=== PATIENT | male | born 1965 | race Caucasian/White ===

== ENCOUNTER 2017-01-04 19:20 | Observation (INO) | payer OTHER ==
[2017-01-04] VITALS (7 sets, daily range): BP systolic 142–165; BP diastolic 62–97; PULSE 83–100; RESP 16–20; TEMP 98.1–98.5; O2SAT 99–100
[~2017-01-04] VITALS: Ht 172.7 cm; Wt 88.0 kg
[~2017-01-04 19:20] MED LIST: AMLO5 PO; ASPI1TAB69 PO; BACT800T5 PO; CARV12.5 PO; FOLI1TAB4 PO; GABA300C5 PO; HUMALOG SQ; HYDR-3516 PO; JANU50TA4 PO; LANTUS2P SQ; LEVA750T PO; LEVEMIR SQ; LIPI10TA PO; LISI-515 PO; NITR0.4S SL; PANT40TA3 PO; SPIR25 PO; THIA100T PO; TORS20TA PO; XARE20TA PO
--- NOTE | 2017-01-04 20:19 | PD ---
HPI Chief Complaint: Cardiac Complaint Time Seen by Provider: 20:15 Travel History International Travel<30 days: No Contact w/Intl Traveler<30days: No Traveled to known affect area: No History of Present Illness HPI 51-year-old male that presents to the ED for evaluation of shortness of breath, increase bodyweight as well as chest pain. Per patient he has a history of severe CHF with an ejection fracture of less than 30% that presents to the ED for evaluation of what he believes is likely a CHF exacerbation. Per patient he is a plan with his medications. Patient was recently released from the hospital in October for a foot infection and sepsis. Patient reports that all of his symptoms have improved since then. Per patient his follow-up with his bilingual medical assistant been no issues. Per patient he is originally from [place] and he only comes to [place] for about 4-5 months. Per patient she is due to have a lung transplant as well as a defibrillator placed as well as a pacemaker secondary to his severe heart disease Saturday soon but unfortunately because of his recent infections he's not been able to get this. Patient is currently using a chest heart monitor. He denies any abdominal pain. Per patient and both of his legs are swollen. Per patient he gained 20 pounds. Per patient the chest in his pain is more like a pressure. Per patient he has little cough. Per patient the discomfort is 6 out of 10. He takes blood thinners including Xarelto. He denies any other medical problem at this time. Patient has had previous pleural effusions with thoracocentesis require. Patient also has a history of PE in the past. PFSH Past Medical History Hx Anticoagulant Therapy: Yes Blood Disorders: No Anxiety: Yes Depression: Yes Cancer: No Cardiovascular Problems: Yes (HTN, CHF, CAD, [place]) Congestive Heart Failure: Yes Coronary Artery Disease: Yes Diabetes: Yes Patient Takes Glucophage: Yes Diminished Hearing: No Endocrine: Yes Hypertension: Yes Immune Disorder: No Implanted Vascular Access Dvce: Yes Psychiatric: Yes ("snapped a few times when younger") Immunizations Current: Yes Thyroid Disease: No Ulcer: No (UTO) Tetanus Vaccination: < 5 Years Past Surgical History Body Medical Devices: PINS/RODS LEFT ARM Thoracic Surgery: Yes (BACK SURGERY) Other Surgery: Yes (partial amputation to the left foot, mid metatarsals. Right fourth toe amp) Social History Alcohol Use: No (FORMER) Tobacco Use: Yes (2 CIGS/DAY) Substance Use: Yes ("WEED OCCASSIONALLY") Allergies-Medications (Allergen,Severity, Reaction): Coded Allergies: Percocet (Verified Allergy, Severe, Rash, 01/04/17) Vancomycin (Verified Allergy, Severe, Rash, 01/04/17) Tylenol (Verified Adverse Reaction, Intermediate, Rash, 01/04/17) *MDRO Multi-Drug Resistant Organism (Verified Adverse Reaction, Unknown, ) MRSA (foot wound) - 09/2015 & 09/26/16 Reported Meds & Prescriptions Reported Meds & Active Scripts Active Lisinopril 20 Mg Tab 40 Mg PO DAILY Coreg (Carvedilol) 12.5 Mg Tab 25 Mg PO Q12HR Lipitor (Atorvastatin Calcium) 10 Mg Tab 10 Mg PO DAILY Norvasc (Amlodipine Besylate) 5 Mg Tab 2.5 Mg PO DAILY Levemir Inj (Insulin Detemir) 1,000 unit/ 10 ML Vial 20 Units SQ BID Reported Torsemide 20 Mg Tab 40 Mg PO DAILY Thiamine (Thiamine HCl) 100 Mg Tab 100 Mg PO DAILY Aldactone (Spironolactone) 25 Mg Tab 25 Mg PO DAILY Janumet (Sitagliptin-Metformin) 50-500 Mg Tab 1 Tab PO BID Xarelto (Rivaroxaban) 20 Mg Tab 20 Mg PO DAILY Pantoprazole (Pantoprazole Sodium) 40 Mg Tab 40 Mg PO DAILY Humalog Inj (Insulin Human Lispro) 1,000 Unit/10 Ml Vial SQ ACHS Lantus Inj (Insulin Glargine) 100 Unit/Ml Inj 18 Units SQ BID Gabapentin 300 Mg Cap 300 Mg PO TID Folate (Folic Acid) 1 Mg Tab 1 Mg PO DAILY Aspirin 81 Mg Tabdr 81 Mg PO DAILY Review of Systems General / Constitutional: Positive: Weight Gain, No: Fever, Chills, Weight Loss, Other Eyes: No: Diploplia, Blurred Vision, Photophobia, Drainage, Redness, Foreign Body Sensation, Pain, Tearing, Blind Spots, Visual changes, Blindness, Other HENT: No: Headaches, Vertigo, Lightheadedness, Sore Throat, Rhinitis, Rhinorrhea, Congestion, Nosebleed, Neck Stiffness, Neck Pain, Masses, Gingival Bleeding, Dental Difficulties, Ear Discharge, Earache, Other Cardiovascular: Positive: Chest Pain or Discomfort, Edema, No: Palpitations, Irregular Rhythm, Tachycardia, Diaphoresis, Syncope, Dyspnea on exertion, Varicosities, Cyanosis, Varicosities, Phlebitis, Claudication, Other Respiratory: Positive: Cough, Shortness of Breath, Orthopnea, No: Wheezing, Sneezing, Hemoptysis, Stridor, Night Sweats, Pleuritic Pain, Other Gastrointestinal: No: Nausea, Vomiting, Diarrhea, Abdominal Pain, Hematemesis, Hematochezia, Constipation, Changes in Bowel Habits, Indigestion, Dysphagia, Loss of Appetite, Other Genitourinary: No: Urgency, Frequency, Dysuria, Nocturia, Hematuria, Decreased Urinary Output, Oliguria, Hesitancy, Dribbling, Incontinence, Pelvic Pain, Flank Pain, Dyspareunia, Discharge, Dysmenorrhea, Menorrhagia, Metorrhagia, Vaginal Bleeding, Other Musculoskeletal: No: Myalgias, Arthralgias, Limited ROM, Weakness, Cramping, Edema, Pain, Atrophy, Other Skin: No Rash, No Itching, No Dryness, No Lumps, No Hives, No Change in Pigmentation, No Change in nails, No Alopecia, No Lesions, No Breast Lumps, No Breast Tenderness, No Breast Swelling, No Other Neurologic: No: Weakness, Dizziness, Syncope, Focal Abnormalities, Coordination Problem, Tremor, Ataxia, Headache, Change in Mentation, Slurred Speech, Paresthesia, Incontinence, Seizures, Sensory Disturbance, Other Psychiatric: No: Anxiety, Depression, Suicidal Ideations, Disorder of Thought, Mood Disorder, Substance Abuse, Homicidal Ideation, Other Endocrine: No: Heat Intolerance, Cold Intolerance, Polyuria, Polydipsia, Other Hematologic/Lymphatic: No: Easy Bruising, Lymph Node Enlargement, Other Physical Exam Narrative GENERAL: SKIN: Warm and dry. HEAD: Atraumatic. Normocephalic. EYES: Pupils equal and round. No scleral icterus. No injection or drainage. ENT: No nasal bleeding or discharge. Mucous membranes pink and moist. Tongue is midline. No uvula deviation. NECK: Trachea midline. No JVD. CARDIOVASCULAR: Regular rate and rhythm. No murmurs, S3, S4. RESPIRATORY: No accessory muscle use. Clear to auscultation. Breath sounds equal bilaterally. GASTROINTESTINAL: Abdomen soft, non-tender, nondistended. Hepatic and splenic margins not palpable. MUSCULOSKELETAL: Extremities without clubbing, cyanosis, or edema. No obvious deformities. Full range of motion of the upper and lower x-rays bilaterally. Patient does have what appears to be 1+ pitting edema on the lower extremities. 2+ pulses bilaterally. Patient does have surgical scars on both feet. No sign of active infection noted. NEUROLOGICAL: Awake and alert. No obvious cranial nerve deficits. Motor grossly within normal limits. Five out of 5 muscle strength in the arms and legs. Normal speech. PSYCHIATRIC: Appropriate mood and affect; insight and judgment normal. Data Data Last Documented VS Vital Signs Date Time Temp Pulse Resp B/P Pulse Ox O2 Delivery O2 Flow Rate FiO2 01/04/17 21:34 83 18 145/71 99 Room Air 01/04/17 19:22 98.1 Orders Electrocardiogram (01/04/17 19:58) Complete Blood Count With Diff (01/04/17 19:58) Comprehensive Metabolic Panel (01/04/17 19:58) Ckmb (Isoenzyme) Profile (01/04/17 19:58) Troponin I (01/04/17 19:58) B-Type Natriuretic Peptide (01/04/17 19:58) Prothrombin Time / Inr (Pt) (01/04/17 19:58) Act Partial Throm Time (Ptt) (01/04/17 19:58) Urinalysis - C+S If Indicated (01/04/17 19:58) Magnesium (Mg) (01/04/17 19:58) Thyroid Stimulating Hormone (01/04/17 19:58) Chest, Single Ap (01/04/17 19:58) Iv Access Insert/Monitor (01/04/17 19:58) Ecg Monitoring (01/04/17 19:58) Oximetry (01/04/17 19:58) Furosemide Inj (Lasix Inj) (01/04/17 20:45) Morphine Inj (Morphine Inj) (01/04/17 21:00) CKMB (01/04/17 20:15) CKMB% (01/04/17 20:15) Nitroglycerin 2% Oint (Nitroglycerin 2% (01/04/17 21:30) Labs Laboratory Tests Test 01/04/17 20:15 White Blood Count 9.4 TH/MM3 Red Blood Count 4.33 MIL/MM3 Hemoglobin 10.9 GM/DL Hematocrit 33.6 % Mean Corpuscular Volume 77.7 FL Mean Corpuscular Hemoglobin 25.1 PG Mean Corpuscular Hemoglobin 32.3 % Concent Red Cell Distribution Width 18.4 % Platelet Count 186 TH/MM3 Mean Platelet Volume 8.9 FL Neutrophils (%) (Auto) 66.6 % Lymphocytes (%) (Auto) 16.3 % Monocytes (%) (Auto) 9.0 % Eosinophils (%) (Auto) 7.2 % Basophils (%) (Auto) 0.9 % Neutrophils # (Auto) 6.2 TH/MM3 Lymphocytes # (Auto) 1.5 TH/MM3 Monocytes # (Auto) 0.8 TH/MM3 Eosinophils # (Auto) 0.7 TH/MM3 Basophils # (Auto) 0.1 TH/MM3 CBC Comment DIFF FINAL Differential Comment Prothrombin Time 12.0 SEC Prothromb Time International 1.1 RATIO Ratio Activated Partial 23.1 SEC Thromboplast Time Sodium Level 134 MEQ/L Potassium Level 4.0 MEQ/L Chloride Level 102 MEQ/L Carbon Dioxide Level 23.5 MEQ/L Anion Gap 9 MEQ/L Blood Urea Nitrogen 13 MG/DL Creatinine 0.91 MG/DL Estimat Glomerular Filtration 87 ML/MIN Rate Random Glucose 145 MG/DL Calcium Level 7.9 MG/DL Magnesium Level 1.8 MG/DL Total Bilirubin 0.5 MG/DL Aspartate Amino Transf 55 U/L (AST/SGOT) Alanine Aminotransferase 85 U/L (ALT/SGPT) Alkaline Phosphatase 129 U/L Total Creatine Kinase 137 U/L Creatine Kinase MB 3.2 NG/ML Troponin I 0.03 NG/ML B-Type Natriuretic Peptide 1953 PG/ML Total Protein 7.2 GM/DL Albumin 2.7 GM/DL Thyroid Stimulating Hormone 2.000 uIU/ML [address] [place] [address] Medical Decision Making Medical Screen Exam Complete: Yes Emergency Medical Condition: Yes Medical Record Reviewed: Yes Interpretation(s) CBC & BMP Diagram 01/04/17 20:15 Troponin negative, CK-MB negative BNP in the 1900s EKG shows sinus rhythm with no sign of acute ischemia or arrhythmia. Differential Diagnosis CHF exacerbation versus chest pain versus PE versus diabetes versus respiratory failure versus pleural effusion versus pneumonia Narrative Course 51-year-old male that presents to the ED for evaluation of possible CHF exacerbation. Patient was properly examined and was found to have signs and symptoms consistent appears to be likely CHF exacerbation from history and physical. Labs and imaging were ordered. Labs and imaging show what appears to be CHF exacerbation. Patient has a very high BNP of 1900. Case was discussed in my attending Dr. Lester who was made aware of findings and recommends admission for CHF exacerbation. Patient was given 40 of Lasix here and morphine for pain. Patient has no primary care in the area or drywall taper as he follows up mainly with the drywall taper in [place]. HEPAS was paged. Dr. Oliver agrees to admission. Procedures EKG Prior to Arrival: No Diagnosis Primary Impression: CHF exacerbation Qualified Code: I50.23 - Acute on chronic systolic congestive heart failure Admitting Information Admitting Physician Requests: Observation Gabo Muhammad Jan 04, 2017 20:19 Gabo Muhammad Jan 04, 2017 20:19
[2017-01-04 20:29] LABS: AUTOMATED NEUTROPHIL # 6.2 TH/MM3 (1.8-7.7); BASOPHIL # 0.1 TH/MM3 (0-0.2); BASOPHIL % 0.9 % (0.0-2.0); EOSINOPHIL # 0.7 TH/MM3 (0-0.4); EOSINOPHIL % 7.2 % (0.0-4.0); HEMATOCRIT 33.6 % (39.0-51.0); HEMO FLAGS DIFF FINAL; LYMPH % 16.3 % (9.0-44.0); LYMPHOCYTE # 1.5 TH/MM3 (1.0-4.8); MEAN CELL VOLUME 77.7 FL (80.0-100.0); MEAN CORPUSCULAR HEMOGLOBIN 25.1 PG (27.0-34.0); MEAN CORPUSCULAR HGB CONC 32.3 % (32.0-36.0); NEUT % 66.6 % (16.0-70.0); PLATELET COUNT 186 TH/MM3 (150-450); RED BLOOD COUNT 4.33 MIL/MM3 (4.50-5.90); RED CELL DISTRIBUTION WIDTH 18.4 % (11.6-17.2); WHITE BLOOD COUNT 9.4 TH/MM3 (4.0-11.0)
[2017-01-04] MEDS ORDERED: FUROSEMIDE 40 MG/4 ML VIAL IV PUSH ONE (20:45)
[2017-01-04 20:50] LABS: ANION GAP 9 MEQ/L (5-15); AST (GOT) 55 U/L (15-37); BICARBONATE 23.5 MEQ/L (21.0-32.0); BLOOD UREA NITROGEN 13 MG/DL (7-18); CHLORIDE 102 MEQ/L (98-107); GLOMERULAR FILTRATION RATE 87 ML/MIN (>89); MAGNESIUM 1.8 MG/DL (1.5-2.5); SODIUM (NA) 134 MEQ/L (136-145)
[2017-01-04 20:59] LABS: ALKALINE PHOSPHATASE 129 U/L (45-117); ALT (GPT) 85 U/L (12-78); CREATINE KINASE 137 U/L (39-308); TOTAL BILIRUBIN ADULT 0.5 MG/DL (0.2-1.0)
[2017-01-04] MEDS ORDERED: MORPHINE SULFATE 4 MG/ML INJ IV PUSH ONE (21:00)
[2017-01-04 21:12] LABS: CKMB 3.2 NG/ML (0.5-3.6)
[2017-01-04 21:24] LABS: APTT (PATIENT) 23.1 SEC (24.3-30.1); INTERNATIONAL NORMALIZED RATIO 1.1 RATIO
--- NOTE | 2017-01-04 21:28 | RADRPT ---
EXAM DATE/TIME: 01/04/2017 20:30 [facility] COMPARISON: 10/19/2016. INDICATIONS : Shortness of breath and chest pain. MEDICAL HISTORY : Heart failure. SURGICAL HISTORY : None. ENCOUNTER: Initial ACUITY: 1 day PAIN SCORE: 7/10 LOCATION: Bilateral chest FINDINGS: Trace atelectasis in the bases. No significant effusion. No pneumothorax. Heart size stable, upper li mits of normal. CONCLUSION: Minimal bibasilar atelectasis. Clifford Montaño MD on January 04, 2017 at 21:26 Board Certified Radiologist. This report was verified electronically.
[2017-01-04] MEDS ORDERED: NITROGLYCERIN 2% OINT 1 GM PACKET TOP ONE (21:30)
--- NOTE | 2017-01-04 21:43 | HHI.HP ---
[facility] Service [facility] Primary Care Physician No Primary Care Physician Admission Diagnosis CHF exacerbation Diagnoses: (1) Chest pain Diagnosis: Principal (2) CHF (congestive heart failure) Diagnosis: Principal (3) DM (diabetes mellitus) Diagnosis: Principal Travel History International Travel<30 Days: No Contact w/Intl Traveler <30 Da: No Traveled to Known Affected Are: No History of Present Illness This is a 51-year-old male with a PMH of HTN, Anxiety, Depression, CHF (Echo 08/26 w/ EF 30%), LifeVest in place, DM and Tobacco Abuse who presented to the ER w/ complaints of chest pain and SOB in addition to lower extremity edema. States symptoms have been ongoing for 2-3 days w/ progressive edema and weight gain of approx 20lbs. States he is awaiting Defibrillator Placement in addition to Lung Transplant back in [place] where he lives. On arrival, BP 162/91, HR 100, O2 sat 100% on RA, Afebrile. CBC unremarkable. Chemistry at baseline. LFTs mildly elevated from previous labs. BNP 1953. Troponin negative. CXR with minimal bibasilar atelectasis. S/p Lasix IV in ER. Review of Systems ROS: 14 point review of systems otherwise negative. Past Family Social History Past Medical History PMH: HTN, Anxiety, Depression, CHF (Echo 10/20/16 w/ EF 30%), LifeVest in place , DM and Tobacco Abuse Past Surgical History PAST SURGICAL HISTORY: Back Surgery, Left Foot Partial Amputation, Right Fourth Toe Amputation Allergies: Coded Allergies: Percocet (Verified Allergy, Severe, Rash, 01/04/17) Vancomycin (Verified Allergy, Severe, Rash, 01/04/17) Tylenol (Verified Adverse Reaction, Intermediate, Rash, 01/04/17) *MDRO Multi-Drug Resistant Organism (Verified Adverse Reaction, Unknown, ) MRSA (foot wound) - 09/2015 & 09/26/16 Family History PAST FAMILY HISTORY: Reviewed, positive for DM and CAD Social History PAST SOCIAL HISTORY: History of alcohol. Smokes 2 cigarettes per day. Smokes Marijuana occasionally. Physical Exam Vital Signs Vital Signs Date Time Temp Pulse Resp B/P Pulse Ox O2 Delivery O2 Flow Rate FiO2 01/04/17 21:34 83 18 145/71 99 Room Air 01/04/17 21:34 18 01/04/17 21:08 88 16 150/85 100 Room Air 01/04/17 20:19 18 100 Room Air 01/04/17 19:52 93 18 100 01/04/17 19:50 96 18 165/97 100 Room Air 01/04/17 19:22 98.1 100 20 162/91 100 Physical Exam PE: GENERAL: Middle-aged male in no acute distress. HEENT: PERRLA, EOMI. No scleral icterus or conjunctival pallor. No lid lag or facial droop. CARDIOVASCULAR: Regular rate and rhythm. No obvious murmurs to auscultation. No chest tenderness to palpation. RESPIRATORY: No obvious rhonchi or wheezing. Clear to auscultation. Breath sounds equal bilaterally. GASTROINTESTINAL: Abdomen soft, non-tender, nondistended. BS normal. MUSCULOSKELETAL: Extremities without clubbing, cyanosis. 1-2+ edema. No obvious deformities. Previous amputation NEUROLOGICAL: Awake, alert and oriented x4. No focal neurologic deficits. Moving both upper and lower extremities spontaneously. Laboratory Laboratory Tests Test 01/04/17 20:15 White Blood Count 9.4 Red Blood Count 4.33 Hemoglobin 10.9 Hematocrit 33.6 Mean Corpuscular Volume 77.7 Mean Corpuscular Hemoglobin 25.1 Mean Corpuscular Hemoglobin 32.3 Concent Red Cell Distribution Width 18.4 Platelet Count 186 Mean Platelet Volume 8.9 Neutrophils (%) (Auto) 66.6 Lymphocytes (%) (Auto) 16.3 Monocytes (%) (Auto) 9.0 Eosinophils (%) (Auto) 7.2 Basophils (%) (Auto) 0.9 Neutrophils # (Auto) 6.2 Lymphocytes # (Auto) 1.5 Monocytes # (Auto) 0.8 Eosinophils # (Auto) 0.7 Basophils # (Auto) 0.1 CBC Comment DIFF FINAL Differential Comment Prothrombin Time 12.0 Prothromb Time International 1.1 Ratio Activated Partial 23.1 Thromboplast Time Sodium Level 134 Potassium Level 4.0 Chloride Level 102 Carbon Dioxide Level 23.5 Anion Gap 9 Blood Urea Nitrogen 13 Creatinine 0.91 Estimat Glomerular Filtration 87 Rate Random Glucose 145 Calcium Level 7.9 Magnesium Level 1.8 Total Bilirubin 0.5 Aspartate Amino Transf 55 (AST/SGOT) Alanine Aminotransferase 85 (ALT/SGPT) Alkaline Phosphatase 129 Total Creatine Kinase 137 Creatine Kinase MB 3.2 Troponin I 0.03 B-Type Natriuretic Peptide 1953 Total Protein 7.2 Albumin 2.7 Thyroid Stimulating Hormone 2.000 3rd Gen Result Diagram: 01/04/17201401/04/172014 Assessment and Plan Problem List: (1) Chest pain ICD Code: R07.9 Status: Acute (2) CHF (congestive heart failure) ICD Code: I50.9 Status: Chronic (3) DM (diabetes mellitus) ICD Code: E11.9 Status: Chronic Assessment and Plan A/P: 1. Chest Pain: acute onset of chest pain w/ progressive SOB x2-3 days. Currently chest pain free. R/o ACS. Initial trop negative, EKG w/ no acute ischemia. Resume home Coreg, Statin, Xarelto and ASA. Admit for Observation, telemetry, check serial cardiac enzymes. 2. CHF: Acute on Chronic. Systolic. Echo 10/20/16 w/ EF 30%, +LifeVest, pending AICD Placement however delayed due to previous Cellulitis/Sepsis. BNP 1900, CXR w/ bibasilar atelectasis, no significant effusions, images reviewed by me, +lower extremity edema on exam. S/p Lasix IV in ER. I/O. Resume home diuresis. Repeat BNP in am. 3. DM: Sliding scale w/ Accu-Cheks. Hold Metformin for possible cardiac intervention. 4. DVT Prophylaxis: On Xarelto. 5. Social work for d/c planning as needed. 6. Case discussed w/ ER physician at length. Maureen Oliver MD Jan 04, 2017 21:42
[2017-01-04] MEDS ORDERED: SODIUM CHLORIDE 0.9% FLUSH 5 ML FLUSH FLUSH PRN (21:45)
[2017-01-04] MEDS ORDERED: ONDANSETRON HCL 4 MG/2 ML VIAL IVP PRN (21:45)
[2017-01-04] MEDS ORDERED: BISACODYL 10 MG SUPP PR PRN (21:45)
[2017-01-04] MEDS: MORPHINE SULFATE 4 MG/ML INJ IV PRN (23:12)
[2017-01-04 23:28] LABS: BLOOD, URINE NEG (NEG); COMMENT (UR) CULT NOT INDICATED; CULTURE IF INDICATED CULT NOT INDICATED; GLUCOSE,URINE NEG (NEG); HYALINE CAST, URINE 1 /lpf (RARE); KETONE, URINE NEG (NEG); MUCUS URINE FEW /lpf (OCC); NITRITE,URINE NEG (NEG); PH, URINE 6.5 (5.0-8.5); URINE COLOR LIGHT-YELLOW (YELLW/STRAW)
[2017-01-05] VITALS (10 sets, daily range): BP systolic 128–147; BP diastolic 71–90; PULSE 70–87; RESP 16–20; TEMP 97.6–98.4; O2SAT 95–100
[2017-01-05] MEDS ORDERED: PILL SPLITTER OTHER PRN (00:45)
[2017-01-05] MEDS: MORPHINE SULFATE 4 MG/ML INJ IV PRN ×6 (02:08→23:32)
[2017-01-05] MEDS: ALPRAZolam 0.25 MG TAB PO PRN ×2 (05:13→22:31)
--- NOTE | 2017-01-05 07:47 | EKG ---
Date Performed: 01/04/2017 Time Performed: 19:53:54 PTAGE: 51 years EKG: Sinus rhythm LEFT ANTERIOR FASCICULAR BLOCK POSSIBLE ANTERIOR MYOCARDIAL INFARCTION ABNORMAL ECG PREVIOUS TRACING : 09/26/2016 13.30 No significant change from previous tracing noted. DOCTOR: Santo Payton Interpretating Date/Time 01/05/2017 07:46:30
[2017-01-05 07:51] LABS: AUTOMATED NEUTROPHIL # 6.4 TH/MM3 (1.8-7.7); BASOPHIL # 0.1 TH/MM3 (0-0.2); BASOPHIL % 0.7 % (0.0-2.0); EOSINOPHIL # 0.6 TH/MM3 (0-0.4); EOSINOPHIL % 6.6 % (0.0-4.0); HEMATOCRIT 32.2 % (39.0-51.0); LYMPH % 13.4 % (9.0-44.0); LYMPHOCYTE # 1.2 TH/MM3 (1.0-4.8); MEAN CELL VOLUME 77.8 FL (80.0-100.0); MEAN CORPUSCULAR HEMOGLOBIN 24.8 PG (27.0-34.0); MEAN CORPUSCULAR HGB CONC 31.9 % (32.0-36.0); MONO % 9.1 % (0.0-8.0); NEUT % 70.2 % (16.0-70.0); PLATELET COUNT 162 TH/MM3 (150-450); RED BLOOD COUNT 4.14 MIL/MM3 (4.50-5.90); RED CELL DISTRIBUTION WIDTH 18.7 % (11.6-17.2); WHITE BLOOD COUNT 9.1 TH/MM3 (4.0-11.0)
[2017-01-05 08:10] LABS: ANION GAP 10 MEQ/L (5-15); AST (GOT) 42 U/L (15-37); BICARBONATE 21.6 MEQ/L (21.0-32.0); BLOOD UREA NITROGEN 14 MG/DL (7-18); CHLORIDE 104 MEQ/L (98-107); GLOMERULAR FILTRATION RATE 111 ML/MIN (>89); POTASSIUM 3.5 MEQ/L (3.5-5.1); SODIUM (NA) 136 MEQ/L (136-145)
[2017-01-05 08:11] LABS: HEMO FLAGS AUTO DIFF
[2017-01-05 08:12] LABS: ALKALINE PHOSPHATASE 113 U/L (45-117); ALT (GPT) 76 U/L (12-78); TOTAL BILIRUBIN ADULT 0.5 MG/DL (0.2-1.0)
[2017-01-05] MEDS: INSULIN DETEMIR 100 UNITS/ML VIAL SQ SCH ×2 (09:00→21:00)
[2017-01-05] MEDS ORDERED: RIVAROXABAN 20 MG TAB PO SCH ×2 (09:00→17:00)
[2017-01-05] MEDS: SODIUM CHLORIDE 0.9% FLUSH 5 ML FLUSH FLUSH SCH ×2 (09:00→20:56)
--- NOTE | 2017-01-05 09:53 | HHI.PR ---
Subjective Remarks Follow up for chest pain and CHF exacerbation. The patient reports continued constant "tight" chest pains throughout bilateral lower rib cage. He reports continued shortness of breath. 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 The patient reports compliance with his medications however denies being on Lasix at home, only spironolactone. He states this is the second time he has "filled up with water". He denies any recent increased salt intake. He continue to smoke 1-2 cigarettes a day, discussed importance of cessation. Objective Vitals Vital Signs Date Time Temp Pulse Resp B/P Pulse Ox O2 Delivery O2 Flow Rate FiO2 01/05/17 07:28 14 01/05/17 07:23 98.3 82 18 146/90 96 01/05/17 03:32 98.0 81 18 146/90 100 01/05/17 01:13 82 01/05/17 00:44 98.4 87 18 147/88 95 01/04/17 23:58 98.5 87 16 147/62 99 01/04/17 23:17 87 18 142/77 99 Room Air 01/04/17 21:34 83 18 145/71 99 Room Air 01/04/17 21:34 18 01/04/17 21:08 88 16 150/85 100 Room Air 01/04/17 20:19 18 100 Room Air 01/04/17 19:52 93 18 100 01/04/17 19:50 96 18 165/97 100 Room Air 01/04/17 19:22 98.1 100 20 162/91 100 Result Diagram: 01/05/17 0737 01/05/17 0737 Imaging Last Impressions Chest X-Ray 01/04/171957 Signed Impressions: Service Date/Time: Wednesday, January 04, 2017 20:30 - CONCLUSION: Minimal bibasilar atelectasis. Clifford Montaño MD Objective Remarks GENERAL: Well-nourished, well-developed middle aged male patient in [facility]. SKIN: Warm and dry. No rash. HEENT: Normocephalic. Atraumatic. Pupils equal and round. No scleral icterus. No injection or drainage. Mucous membranes pink and moist. NECK: Supple. Trachea midline. CARDIOVASCULAR: Regular rate and rhythm. S1, S2 noted. No murmur appreciated. RESPIRATORY: No accessory muscle use. Breath sounds diminished throughout, worse at the bases. Breath sounds equal bilaterally. GASTROINTESTINAL: Abdomen soft, non-tender, nondistended. Normoactive bowel sounds x4. MUSCULOSKELETAL: Right mid foot amputation and left toe amputations. 1+ bilateral lower extremity pitting edema. NEUROLOGICAL: Awake and alert. No obvious cranial nerve deficits. Motor grossly within normal limits. Normal speech. PSYCHIATRIC: Appropriate mood and affect; insight and judgment normal. Medications and IVs Current Medications Medications (Trade) Dose Ordered Sig/[place] Route Start Time Stop Time Status Last Admin (NS Flush) 2 ml UNSCH PRN FLUSH 01/04/17 21:45 (NS Flush) 2 ml BID FLUSH 01/05/17 09:00 (Zofran Inj) 4 mg Q6H PRN IVP 01/04/17 21:45 (Dulcolax Supp) 10 mg DAILY PRN MO 01/04/17 21:45 (Morphine Inj) 2 mg Q3H PRN IV 01/04/17 21:45 01/05/17 06:55 (Norvasc) 2.5 mg DAILY PO 01/05/17 09:00 (Ecotrin Ec) 81 mg DAILY PO 01/05/17 09:00 (Lipitor) 10 mg DAILY PO 01/05/17 09:00 (Coreg) 25 mg Q12HR PO 01/05/17 09:00 (Folate) 1 mg DAILY PO 01/05/17 09:00 (Neurontin) 300 mg TID PO 01/05/17 09:00 (Levemir Inj) 18 units BID SQ 01/05/17 09:00 (Prinivil) 40 mg DAILY PO 01/05/17 09:00 (Protonix) 40 mg DAILY PO 01/05/17 09:00 (Xarelto) 20 mg DAILY PO 01/05/17 09:00 (Aldactone) 25 mg DAILY PO 01/05/17 09:00 (Vitamin B1) 100 mg DAILY PO 01/05/17 09:00 (Demadex) 40 mg DAILY PO 01/05/17 09:00 (Pill Splitter) 1 ea UNSCH PRN OTHER 01/05/17 00:45 (Xanax) 0.25 mg Q8H PRN PO 01/05/17 05:00 01/05/17 05:13 (Lasix Inj) 40 mg BID@09,18 IV PUSH 01/05/17 18:00 UNV Urinary Catheter: No Vascular Central Line Catheter: No A/P Problem List: (1) Chest pain ICD Code: R07.9 Status: Acute (2) CHF (congestive heart failure) ICD Code: I50.9 Status: Chronic (3) DM (diabetes mellitus) ICD Code: E11.9 Status: Chronic Assessment and Plan 51-year-old male with a PMH of HTN, Anxiety, Depression, CHF (Echo 10/20/16 w/ EF 30%), LifeVest in place, DM and Tobacco Abuse who presented to the ER w/ complaints of chest pain, SOB, lower extremity edema, and 20lbs weight gain in the past 5days Chest Pain: acute onset of chest pain w/ progressive SOB x2-3 days, suspect related to fluid overload. Ruled out ACS with negative cardiac enzymes x2 and EKG w/ no acute ischemia. Resume home Coreg, Statin, Xarelto and ASA. Monitor on telemetry. Acute Exacerbation of Chronic Systolic CHF: Echo 10/20/16 w/ EF 30%, +LifeVest , pending AICD Placement in March2017, previously delayed due to previous Osteomyelitis/Sepsis. BNP 1900, CXR w/ bibasilar atelectasis, no significant effusions, images reviewed by me, +lower extremity edema on exam. S/p Lasix IV in ER, Continue IV Lasix 40mg bid. Monitor strict I/Os. Repeat BMP/BNP in am. DM: Sliding scale w/ Accu-Cheks. Hold Metformin for now. DVT Prophylaxis: On Xarelto. Discussed with Dr. Rogel and RN. Discharge Planning Possible discharge tomorrow if adequate diuresis. Attending Statement The exam, history, and the medical decision-making described in the above note were completed with the assistance of the mid-level provider. I reviewed and agree with the findings presented. I attest that I had a [id number] encounter with the patient on the same day, and personally performed and documented my assessment and findings in the medical record. Rita Mccullough PA-C Jan 05, 2017 09:53 Wally Rogel MD Jan 07, 2017 02:56
[2017-01-05] MEDS: GABAPENTIN 300 MG CAP PO SCH ×3 (11:14→18:34)
[2017-01-05] MEDS: ATORVASTATIN 10 MG TAB PO SCH (11:16)
[2017-01-05] MEDS: CARVEDILOL 12.5 MG TAB PO SCH ×2 (11:16→20:55)
[2017-01-05] MEDS: SPIRONOLACTONE 25 MG TAB PO SCH (11:17)
[2017-01-05] MEDS: ASPIRIN EC 81 MG TABEC PO SCH (11:17)
[2017-01-05] MEDS: FOLIC ACID 1 MG TAB PO SCH (11:17)
[2017-01-05] MEDS: PANTOPRAZOLE SOD 40 MG DELAYED RELEASE TAB PO SCH (11:17)
[2017-01-05] MEDS: THIAMINE HCL 100 MG TAB PO SCH (11:17)
[2017-01-05] MEDS: LISINOPRIL 20 MG TAB PO SCH (11:18)
[2017-01-05] MEDS: TORSEMIDE 20 MG TAB PO SCH (11:18)
[2017-01-05] MEDS: amLODIPine BESYLATE 5 MG TAB PO SCH (11:19)
[2017-01-05] MEDS ORDERED: DEXTROSE 50% IN WATER 50 ML VIAL(D50) IV PUSH PRN (13:00)
[2017-01-05] MEDS ORDERED: GLUCAGON 1 MG/ML VIAL OTHER PRN (13:00)
[2017-01-05 13:42] LABS: SCAN/DIFF AUTO DIFF CONFIRMED
[2017-01-05] MEDS: INSULIN ASPART SUPPLEMENTAL SCALE SQ SCH ×2 (16:00→20:57)
[2017-01-05] MEDS: FUROSEMIDE 40 MG/4 ML VIAL IV PUSH SCH (18:34)
[2017-01-05] MEDS ORDERED: NITROGLYCERIN 0.4 MG SL 25 TABS/BTL SL PRN (22:45)
[2017-01-06 00:58] VITALS: BP 124/68; PULSE 72; RESP 20; TEMP 97.4; O2SAT 95
[2017-01-06 02:39] LABS: BICARBONATE 25.6 MEQ/L (21.0-32.0); POTASSIUM 3.4 MEQ/L (3.5-5.1)
[2017-01-06 04:53] VITALS: BP 101/59; PULSE 68; RESP 20; TEMP 98; O2SAT 95
[2017-01-06] MEDS: MORPHINE SULFATE 4 MG/ML INJ IV PRN ×2 (05:54→10:27)
[2017-01-06] MEDS: INSULIN ASPART SUPPLEMENTAL SCALE SQ SCH ×2 (06:17→11:00)
[2017-01-06] MEDS ORDERED: POTASSIUM CHLORIDE 20 MEQ CONTROLLED RELEASE TAB PO ONE (07:45)
[2017-01-06 08:00] VITALS: BP_SYST 166; BP_SYST 180; BP_DIAS 65; PULSE 65; PULSE 87; RESP 16; TEMP 96.3; O2SAT 96
--- NOTE | 2017-01-06 08:54 | HHI.PR ---
Subjective Remarks Follow up for chest pain and CHF exacerbation. The patient reports an episode of chest pain last night which he believes was an anxiety attack. He states he has been stressed out about his daughters in [place] and his medical problems and last night he was thinking about all of this when the pain occurred. He states she felt his heart beating fast. Telemetry unremarkable. Symptoms were relieved with Xanax. He then had a very restful sleep which he states he has not been able to do in awhile. Otherwise, his shortness of breath is much improved and leg swelling almost resolved. He states he has been urinating a lot overnight. He has no other medical complaints at this time. Objective Vitals Vital Signs Date Time Temp Pulse Resp B/P Pulse Ox O2 Delivery O2 Flow Rate FiO2 01/06/17 08:00 96.3 65 16 166/65 96 01/06/17 05:59 12 01/06/17 04:53 98.0 68 20 101/59 95 01/06/17 00:58 97.4 72 20 124/68 95 01/05/17 22:33 97.6 75 20 128/71 98 01/05/17 20:00 80 01/05/17 19:37 98.3 70 20 135/74 95 01/05/17 15:48 98.2 80 18 141/73 95 01/05/17 11:36 98.4 80 16 140/76 96 I/O 01/05/17 01/05/17 01/05/17 01/06/17 01/06/17 01/06/17 07:00 15:00 23:00 07:00 15:00 23:00 Intake Total 550 ml 480 ml Output Total 1100 ml 1600 ml Balance -550 ml -1120 ml Intake Oral 550 ml 480 ml Output Urine Total 1100 ml 1600 ml # Bowel Movements 0 Result Diagram: 01/05/17 0737 01/06/17 0133 Imaging Last Impressions Chest X-Ray 01/04/171957 Signed Impressions: Service Date/Time: Wednesday, January 04, 2017 20:30 - CONCLUSION: Minimal bibasilar atelectasis. Clifford Montaño MD Objective Remarks GENERAL: Well-nourished, well-developed middle aged male patient in [facility]. SKIN: Warm and dry. No rash. HEENT: Normocephalic. Atraumatic. Pupils equal and round. No scleral icterus. No injection or drainage. Mucous membranes pink and moist. NECK: Supple. Trachea midline. CARDIOVASCULAR: Regular rate and rhythm. S1, S2 noted. No murmur appreciated. RESPIRATORY: No accessory muscle use. Lungs clear to auscultation. Breath sounds equal bilaterally. GASTROINTESTINAL: Abdomen soft, non-tender, nondistended. Normoactive bowel sounds x4. 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 Trace bilateral lower extremity pitting edema. NEUROLOGICAL: Awake and alert. No obvious cranial nerve deficits. Motor grossly within normal limits. Normal speech. PSYCHIATRIC: Appropriate mood and affect; insight and judgment normal. Medications and IVs Current Medications Medications (Trade) Dose Ordered Sig/[place] Route Start Time Stop Time Status Last Admin (NS Flush) 2 ml UNSCH PRN FLUSH 01/04/17 21:45 (NS Flush) 2 ml BID FLUSH 01/05/17 09:00 01/05/17 20:56 (Zofran Inj) 4 mg Q6H PRN IVP 01/04/17 21:45 (Dulcolax Supp) 10 mg DAILY PRN SD 01/04/17 21:45 (Morphine Inj) 2 mg Q3H PRN IV 01/04/17 21:45 01/06/17 05:54 (Norvasc) 2.5 mg DAILY PO 01/05/17 09:00 01/05/17 11:19 (Ecotrin Ec) 81 mg DAILY PO 01/05/17 09:00 01/05/17 11:17 (Lipitor) 10 mg DAILY PO 01/05/17 09:00 01/05/17 11:16 (Coreg) 25 mg Q12HR PO 01/05/17 09:00 01/05/17 20:55 (Folate) 1 mg DAILY PO 01/05/17 09:00 01/05/17 11:17 (Neurontin) 300 mg TID PO 01/05/17 09:00 01/05/17 18:34 (Levemir Inj) 18 units BID SQ 01/05/17 09:00 (Prinivil) 40 mg DAILY PO 01/05/17 09:00 01/05/17 11:18 (Protonix) 40 mg DAILY PO 01/05/17 09:00 2/25/17 11:17 (Aldactone) 25 mg DAILY PO 01/05/17 09:00 01/05/17 11:17 (Vitamin B1) 100 mg DAILY PO 01/05/17 09:00 01/05/17 11:17 (Demadex) 40 mg DAILY PO 01/05/17 09:00 01/05/17 11:18 (Pill Splitter) 1 ea UNSCH PRN OTHER 01/05/17 00:45 (Xanax) 0.25 mg Q8H PRN PO 01/05/17 05:00 01/05/17 22:31 (Lasix Inj) 40 mg BID@,18 IV PUSH 01/05/17 18:00 01/05/17 18:34 (D50w (Vial) Inj) 25 ml UNSCH PRN IV PUSH 01/05/17 13:00 (Glucagon Inj) 1 mg UNSCH PRN OTHER 01/05/17 13:00 (Xarelto) 20 mg DAILY@17 PO 01/05/17 17:00 01/05/17 18:39 (Nitrostat Sl) 0.4 mg Q5M PRN SL 01/05/17 22:45 Urinary Catheter: No Vascular Central Line Catheter: No A/P Problem List: (1) Chest pain ICD Code: R07.9 Status: Acute (2) CHF (congestive heart failure) ICD Code: I50.9 Status: Chronic (3) DM (diabetes mellitus) ICD Code: E11.9 Status: Chronic Assessment and Plan 51-year-old male with a PMH of HTN, Anxiety, Depression, CHF (Echo 10/20/16 w/ EF 30%), LifeVest in place, DM and Tobacco Abuse who presented to the ER w/ complaints of chest pain, SOB, lower extremity edema, and 20lbs weight gain in the past 5days Chest Pain: acute onset of chest pain w/ progressive SOB x2-3 days, suspect related to fluid overload. Ruled out ACS with negative cardiac enzymes x2 and EKG w/ no acute ischemia. Resume home Coreg, Statin, Xarelto and ASA. Monitor on telemetry. Another episode of chest pain last night, suspect anxiety attack, relieved by Xanax. Repeat trops and EKG unremarkable. Acute Exacerbation of Chronic Systolic CHF: Echo 10/20/16 w/ EF 30%, +LifeVest , pending AICD Placement in March2017, previously delayed due to previous Osteomyelitis/Sepsis. BNP 2275, CXR w/ bibasilar atelectasis, no significant effusions, images reviewed by me, +lower extremity edema on exam. S/p Lasix IV in ER, Continue IV Lasix 40mg bid. Monitor strict I/Os, patient diuresing well. BMP stable, BNP improved today, 1886. DM: Sliding scale w/ Accu-Cheks. Hold Metformin for now. DVT Prophylaxis: On Xarelto. Discussed with Dr. Rogel and RN. Discharge Planning Discharge patient to home Condition on discharge: Improved Heart Healthy Diet as tolerated Ad Светлана activity Rx written: Lasix 40mg bid, Xanax 0.25mg po q8h prn anxiety Follow-up with primary care physician and saw sharpener Attending Statement The exam, history, and the medical decision-making described in the above note were completed with the assistance of the mid-level provider. I reviewed and agree with the findings presented. I attest that I had a [id number] encounter with the patient on the same day, and personally performed and documented my assessment and findings in the medical record. Rita Mccullough PA-C Jan 06, 2017 08:54 Wally Rogel MD Jan 07, 2017 02:45
--- NOTE | 2017-01-06 09:17 | EKG ---
Date Performed: 01/05/2017 Time Performed: 22:29:07 PTAGE: 51 years EKG: Sinus rhythm LEFT ANTERIOR FASCICULAR BLOCK NONSPECIFIC ST & T-WAVE ABNORMALITY POOR R WAVE PROGRESSION ABNORMAL ECG PREVIOUS TRACING : 01/04/2017 19.53 No significant change from previous tracing noted. DOCTOR: Santo Payton Interpretating Date/Time 01/06/2017 09:16:26
[2017-01-06] MEDS ORDERED: FURO1TAB60 PO (09:57)
--- NOTE | 2017-01-06 09:57 | HHI.DCPOC ---
Discharge Care Plan Diagnosis: (1) CHF exacerbation (2) Chest pain Your Health Problems Are: Fluid/Lung Overload Shortness of Breath Goals to Promote Your Health * To prevent worsening of your condition and complications * To maintain your health at the optimal level Directions to Meet Your Goals Take your medications as prescribed Follow your dietary instruction Follow activity as directed Keep your appointments as scheduled Take your immunizations and boosters as scheduled If your symptoms worsen call your PCP, if no PCP go to Urgent Care Center or Emergency Room Smoking is Dangerous to Your Health. Avoid second hand smoke Call the 24-hour hour crisis hotline for domestic abuse at Rita Mccullough PA-C Jan 06, 2017 09:57
[2017-01-06 10:32] VITALS: RESP 20
[2017-01-06] MEDS: FUROSEMIDE 40 MG/4 ML VIAL IV PUSH SCH (10:33)
[2017-01-06] MEDS: TORSEMIDE 20 MG TAB PO SCH (10:34)
[2017-01-06] MEDS: ATORVASTATIN 10 MG TAB PO SCH (10:34)
[2017-01-06] MEDS: amLODIPine BESYLATE 5 MG TAB PO SCH (10:35)
[2017-01-06] MEDS: GABAPENTIN 300 MG CAP PO SCH ×2 (10:36→13:00)
[2017-01-06] MEDS: SPIRONOLACTONE 25 MG TAB PO SCH (10:37)
[2017-01-06] MEDS: THIAMINE HCL 100 MG TAB PO SCH (10:37)
[2017-01-06] MEDS: CARVEDILOL 12.5 MG TAB PO SCH (10:37)
[2017-01-06] MEDS: ASPIRIN EC 81 MG TABEC PO SCH (10:38)
[2017-01-06] MEDS: FOLIC ACID 1 MG TAB PO SCH (10:38)
[2017-01-06] MEDS: PANTOPRAZOLE SOD 40 MG DELAYED RELEASE TAB PO SCH (10:44)
[2017-01-06] MEDS: LISINOPRIL 20 MG TAB PO SCH (10:45)
[2017-01-06] MEDS: INSULIN DETEMIR 100 UNITS/ML VIAL SQ SCH (10:47)
[2017-01-06] MEDS ORDERED: ALPR.25 PO (11:20)
== END 2017-01-06 14:11 | disposition home or self-care (01) ==
LOC: NEPE 19:20 → NEDA 21:41 → NEPGCP 01-05 00:32
PROVIDERS: ADMIT Internal Medicine; ATTEND Internal Medicine
DX: I50.23 Acute on chronic systolic (congestive) heart failure (principal); I10 Essential (primary) hypertension; I25.10 Atherosclerotic heart disease of native coronary artery without angina pectoris; R94.31 Abnormal electrocardiogram [ECG] [EKG]; J98.11 Atelectasis; E11.9 Type 2 diabetes mellitus without complications; F12.90 Cannabis use, unspecified, uncomplicated; F41.1 Generalized anxiety disorder; F17.200 Nicotine dependence, unspecified, uncomplicated; Z79.899 Other long term (current) drug therapy; Z86.711 Personal history of pulmonary embolism
CPT/HCPCS: 71010; 76937; 80048; 80053; 81001; 82550; 82552; 82948; 83735; 83880; 84443; 84484; 85025; 85610; 85730; 93005; 96374; 96375; 99285; G0378; J1940; J2270

== ENCOUNTER 2017-02-18 16:34 | Observation (INO) | payer OTHER ==
[~2017-02-18] VITALS: Ht 172.7 cm; Wt 76.0 kg
[~2017-02-18 16:34] MED LIST changes: +ALPR.25 PO; -BACT800T5 PO; +FURO1TAB60 PO; -HYDR-3516 PO; -LEVA750T PO; -NITR0.4S SL; -TORS20TA PO
[2017-02-18 16:35] VITALS: BP 138/106; PULSE 108; RESP 16; TEMP 98.8; O2SAT 100
[2017-02-18] MEDS ORDERED: LANTUS2P SQ (17:35)
[2017-02-18 17:37] VITALS: BP 146/85; PULSE 92; RESP 18; TEMP 98.2; O2SAT 100
--- NOTE | 2017-02-18 17:37 | PD ---
HPI Chief Complaint: Respiratory Distress Time Seen by Provider: 17:36 Travel History International Travel<30 days: No Contact w/Intl Traveler<30days: No Traveled to known affect area: No History of Present Illness HPI 2-year-old male with PMH of CHF, cardiomyopathy (EF <30%) PE, T2 DM, osteomyelitis, MRSA, noncompliance, ON XARELTO presents to the ED for evaluation of shortness of breath, edema of the lower extremities, overnight weight gain of 5 pounds. Patient also complains of pain in the right second toe. He endorses chills. Denies chest pain, palpitations, abdominal pain, anorexia, nausea, vomiting, changes in bowel habits, dysuria, back pain. Patient states that he only lives here part of the year, primary care is "[place]." PFSH Past Medical History Hx Anticoagulant Therapy: Yes Blood Disorders: No Anxiety: Yes Depression: Yes Cancer: No Cardiovascular Problems: Yes Congestive Heart Failure: Yes Coronary Artery Disease: Yes Diabetes: Yes Diminished Hearing: No Endocrine: Yes Hypertension: Yes Immune Disorder: No Implanted Vascular Access Dvce: Yes Psychiatric: Yes ("snapped a few times when younger") Respiratory: Yes Immunizations Current: Yes Thyroid Disease: No Ulcer: No (UTO) Past Surgical History Body Medical Devices: PINS/RODS LEFT ARM Thoracic Surgery: Yes (BACK SURGERY) Other Surgery: Yes (partial amputation to the left foot, mid metatarsals. Right fourth toe amp) Social History Alcohol Use: No (FORMER) Tobacco Use: Yes (2 CIGS/DAY) Substance Use: Yes ("WEED OCCASSIONALLY") Allergies-Medications (Allergen,Severity, Reaction): Coded Allergies: Percocet (Verified Allergy, Severe, Rash, 02/18/17) Vancomycin (Verified Allergy, Severe, Rash, 02/18/17) Tylenol (Verified Adverse Reaction, Intermediate, Rash, 02/18/17) *MDRO Multi-Drug Resistant Organism (Verified Adverse Reaction, Unknown, ) MRSA (foot wound) - 09/2015 & 09/26/16 Reported Meds & Prescriptions Reported Meds & Active Scripts Active Doxycycline Hyclate 100 Mg Cap 100 Mg PO BID Keflex (Cephalexin) 500 Mg Cap 500 Mg PO Q6H 10 Days Lasix (Furosemide) 40 Mg Tab 40 Mg PO BID Lisinopril 20 Mg Tab 40 Mg PO DAILY Coreg (Carvedilol) 12.5 Mg Tab 25 Mg PO Q12HR Lipitor (Atorvastatin Calcium) 10 Mg Tab 10 Mg PO DAILY Norvasc (Amlodipine Besylate) 5 Mg Tab 2.5 Mg PO DAILY Levemir Inj (Insulin Detemir) 1,000 unit/ 10 ML Vial 20 Units SQ BID Reported Lantus Inj (Insulin Glargine) 100 Unit/Ml Inj 23 Unit SQ BID Aldactone (Spironolactone) 25 Mg Tab 25 Mg PO DAILY Janumet (Sitagliptin-Metformin) 50-500 Mg Tab 1 Tab PO BID Xarelto (Rivaroxaban) 20 Mg Tab 20 Mg PO DAILY Pantoprazole (Pantoprazole Sodium) 40 Mg Tab 40 Mg PO DAILY Humalog Inj (Insulin Human Lispro) 1,000 Unit/10 Ml Vial SQ ACHS Folate (Folic Acid) 1 Mg Tab 1 Mg PO DAILY Aspirin 81 Mg Tabdr 81 Mg PO DAILY Review of Systems Except as stated in HPI: all other systems reviewed are Neg Physical Exam Narrative GENERAL: Well-nourished, well-developed male, sitting up on the stretcher , in no acute distress. SKIN: Focused skin assessment warm/dry. Very mild erythema of the 2nd toe of the right foot. HEAD: Normocephalic. EYES: No scleral icterus. No injection or drainage. NECK: Supple, trachea midline. No JVD or lymphadenopathy. CARDIOVASCULAR: Regular rate and rhythm without murmurs, gallops, or rubs. 2+ radial pulses. RESPIRATORY: Breath sounds clear and equal bilaterally. No accessory muscle use. GASTROINTESTINAL: Abdomen soft, non-tender, nondistended. Mild epigastric TTP. MUSCULOSKELETAL: No cyanosis, or edema. Left forefoot amputated with well healed surgical scars and no sign of infection. Right foot with amputation of several digits. 1st and 2nd digits intact. 2nd digit TTP with very mild erythema. No warmth. No cellulitic streaking. Digits 3 and 4 amputated without signs of infection. BACK: Nontender without obvious deformity. No CVA tenderness. Data Data Last Documented VS Vital Signs Date Time Temp Pulse Resp B/P Pulse Ox O2 Delivery O2 Flow Rate FiO2 02/18/17 19:54 87 16 141/96 98 Room Air 02/18/17 17:37 98.2 Orders Complete Blood Count With Diff (02/18/17 17:41) Comprehensive Metabolic Panel (02/18/17:41) B-Type Natriuretic Peptide (02/18/17:41) Act Partial Throm Time (Ptt) (02/18/17:41) Prothrombin Time / Inr (Pt) (02/18/17:41) Magnesium (Mg) (02/18/17:41) Ckmb (Isoenzyme) Profile (02/18/17:41) Troponin I (02/18/17:) Urinalysis - C+S If Indicated (02/18/17:41) Iv Access Insert/Monitor (02/18/17:41) Electrocardiogram (02/18/17:) Ecg Monitoring (02/18/17) Oximetry (02/18/17:) Oxygen Administration (02/18/17:) Chest, Single Ap (02/18/17:41) Sodium Chloride 0.9% Flush (Ns Flush) (02/18/17:45) Foot, Complete (Gam9fsd) (02/18/17:41) CKMB (02/18/17 17:45) CKMB% (02/18/17 17:45) Morphine Inj (Morphine Inj) (02/18/17 19:45) Cephalexin (Keflex) (02/18/17 20:30) Doxycycline (Vibramycin) (02/18/17 20:30) Admit Order (Ed Use Only) (02/18/17 22:39) Place In Observation (02/18/17 ) Vital Signs (Adult) Q4H (02/18/17 22:39) Activity Oob With Assistance (02/18/17 22:39) Dog Boarder / Telemetry .CONTINUOUS (02/18/17 22:39) Intake + Output RUIZ.QSHIFT (02/18/17 22:39) Diet 1800 Ada Cons Carb (02/19/17 Breakfast) Diet Heart Healthy (02/19/17 Breakfast) Sodium Chloride 0.9% Flush (Ns Flush) (02/18/17 22:45) Sodium Chloride 0.9% Flush (Ns Flush) (02/19/17 09:00) Basic Metabolic Panel (Bmp) (02/19/17 06:00) Complete Blood Count With Diff (02/19/17 06:00) Creatine Kinase (Cpk) (02/18/17 23:45) Creatine Kinase (Cpk) (02/19/17 05:45) Troponin I (02/18/17 23:45) Troponin I (02/19/17 05:45) Electrocardiogram (02/18/17 23:45) Electrocardiogram (02/19/17 05:45) Pt Request For Service (02/18/17 22:39) Naloxone Inj (Narcan Inj) (02/18/17 22:45) Furosemide Inj (Lasix Inj) (02/18/17 22:45) Furosemide Inj (Lasix Inj) (02/19/17 09:00) Potassium Chloride (Kcl) (02/18/17 22:45) Labs Laboratory Tests Test 02/18/17 02/18/17 17:45 21:15 White Blood Count 6.7 TH/MM3 Red Blood Count 4.90 MIL/MM3 Hemoglobin 11.6 GM/DL Hematocrit 37.0 % Mean Corpuscular Volume 75.5 FL Mean Corpuscular Hemoglobin 23.6 PG Mean Corpuscular Hemoglobin 31.2 % Concent Red Cell Distribution Width 19.1 % Platelet Count 192 TH/MM3 Mean Platelet Volume 9.0 FL Neutrophils (%) (Auto) 57.5 % Lymphocytes (%) (Auto) 30.2 % Monocytes (%) (Auto) 5.6 % Eosinophils (%) (Auto) 5.9 % Basophils (%) (Auto) 0.8 % Neutrophils # (Auto) 3.8 TH/MM3 Lymphocytes # (Auto) 2.0 TH/MM3 Monocytes # (Auto) 0.4 TH/MM3 Eosinophils # (Auto) 0.4 TH/MM3 Basophils # (Auto) 0.1 TH/MM3 CBC Comment DIFF FINAL Differential Comment AUTO DIFF CONFIRMED Platelet Estimate NORMAL Platelet Morphology Comment NORMAL Prothrombin Time 11.1 SEC Prothromb Time International 1.0 RATIO Ratio Activated Partial 27.1 SEC Thromboplast Time Sodium Level 136 MEQ/L Potassium Level 3.8 MEQ/L Chloride Level 100 MEQ/L Carbon Dioxide Level 27.1 MEQ/L Anion Gap 9 MEQ/L Blood Urea Nitrogen 10 MG/DL Creatinine 0.99 MG/DL Estimat Glomerular Filtration 79 ML/MIN Rate Random Glucose 187 MG/DL Calcium Level 9.0 MG/DL Magnesium Level 2.0 MG/DL Total Bilirubin 0.4 MG/DL Aspartate Amino Transf 26 U/L (AST/SGOT) Alanine Aminotransferase 29 U/L (ALT/SGPT) Alkaline Phosphatase 129 U/L Total Creatine Kinase 170 U/L Creatine Kinase MB 2.6 NG/ML Troponin I 0.03 NG/ML B-Type Natriuretic Peptide 1243 PG/ML Total Protein 8.4 GM/DL Albumin 3.5 GM/DL Urine Color YELLOW Urine Turbidity CLEAR Urine pH 7.0 Urine Specific [place] 1.016 Urine Protein GREATER THAN 600 mg/dL Urine Glucose (UA) NEG mg/dL Urine Ketones NEG mg/dL Urine Occult Blood SMALL Urine Nitrite NEG Urine Bilirubin NEG Urine Urobilinogen LESS THAN 2.0 MG/DL Urine Leukocyte Esterase NEG Urine RBC 1 /hpf Urine WBC LESS THAN 1 /hpf Urine Squamous Epithelial <1 /hpf Cells Microscopic Urinalysis Comment CULT NOT INDICATED MDM Medical Decision Making Medical Screen Exam Complete: Yes Emergency Medical Condition: Yes Medical Record Reviewed: Yes Differential Diagnosis CHF exacerbation versus pneumonia versus cellulitis versus osteomyelitis versus diabetic neuropathy versus other Narrative Course 52-year-old male with PMH of CHF, cardiomyopathy (EF <30%) PE, T2 DM, osteomyelitis, MRSA, noncompliance, ON XARELTO presents to the ED for evaluation of shortness of breath, edema of the lower extremities, overnight weight gain of 5 pounds. Patient also complains of pain in the right second toe. He endorses chills. Denies chest pain, palpitations, abdominal pain, anorexia, nausea, vomiting, changes in bowel habits, dysuria, back pain. Vitals reviewed. Physical exam reveals a nontoxic appearing male in no acute distress. Chest is clear to auscultation bilaterally. Mild epigastric tenderness to palpation. No edema of the lower extremities. Right second toe mildly erythematous and tender. No warmth, no cellulitic streaking. IV was established. Patient was placed on continuous monitoring. He was administered 4 mg Morphine IV. CBC: WBC 6.7, hemoglobin 11.6. Coags: INR 1.0. Chemistry: Unremarkable. Cardiac enzymes: Negative. BNP: 1243 EKG: Rate 84, sinus rhythm. AR interval 147, QRS 119, QTC 435 ms. Normal axis. No ST elevations or depressions. Reviewed by Dr. Jimenez. UA: No culture indicated See x-ray: No acute disease per radiology read. X-ray of the right foot: No evidence of osteomyelitis. Amputation of third and fourth toes per radiology read. The patient wears a "life vest", is awaiting heart transplant. Patient was administered by mouth Keflex and doxycycline. The BNP was delayed due to malfunction in the lab. Patient is experiencing a CHF exacerbation and possible early cellulitis of the right second toe. I spoke with Dr. Singh who agrees to accept the patient to the medical service. Please see medicine notes for disposition. Diagnosis Primary Impression: CHF exacerbation Qualified Code: I50.9 - Acute on chronic congestive heart failure, unspecified congestive heart failure type Additional Impression: Cellulitis of foot Martine Ramirez Feb 18, 2017 17:37
[2017-02-18] MEDS ORDERED: SODIUM CHLORIDE 0.9% FLUSH 10 ML FLUSH IVF PRN (17:45)
--- NOTE | 2017-02-18 18:10 | RADRPT ---
EXAM DATE/TIME: 02/18/2017 18:01 [facility] COMPARISON: CHEST SINGLE AP, January 04, 2017, 20:30. INDICATIONS : Short of breath. MEDICAL HISTORY : Congestive heart failure. SURGICAL HISTORY : None. ENCOUNTER: Initial ACUITY: 1 day PAIN SCORE: 9/10 LOCATION: Bilateral chest FINDINGS: A single view of the chest demonstrates the lungs to be symmetrically aerated without evidence of mas s, infiltrate or effusion. The cardiomediastinal contours are unremarkable. Osseous structures are intact. CONCLUSION: No acute disease. Sharad Estrada MD FACR on February 18, 2017 at 18:08 Board Certified Radiologist. This report was verified electronically.
[2017-02-18 18:27] LABS: AUTOMATED NEUTROPHIL # 3.8 TH/MM3 (1.8-7.7); BASOPHIL # 0.1 TH/MM3 (0-0.2); BASOPHIL % 0.8 % (0.0-2.0); EOSINOPHIL # 0.4 TH/MM3 (0-0.4); EOSINOPHIL % 5.9 % (0.0-4.0); LYMPH % 30.2 % (9.0-44.0); MEAN CELL VOLUME 75.5 FL (80.0-100.0); MEAN CORPUSCULAR HEMOGLOBIN 23.6 PG (27.0-34.0); MEAN CORPUSCULAR HGB CONC 31.2 % (32.0-36.0); MONO % 5.6 % (0.0-8.0); NEUT % 57.5 % (16.0-70.0); PLATELET COUNT 192 TH/MM3 (150-450); RED CELL DISTRIBUTION WIDTH 19.1 % (11.6-17.2); WHITE BLOOD COUNT 6.7 TH/MM3 (4.0-11.0)
--- NOTE | 2017-02-18 18:27 | RADRPT ---
EXAM DATE/TIME: 02/18/2017 17:56 [facility] COMPARISON: FOOT RIGHT COMPLETE ([id number]), September 26, 2016, 13:24. INDICATIONS : Right foot pain with no known injury. MEDICAL HISTORY : Diabetes mellitus type I. Neuropathy. SURGICAL HISTORY : Toe amputations. ENCOUNTER: Initial ACUITY: 1 week PAIN SCORE: 9/10 LOCATION: Right distal foot. FINDINGS: The patient has had previous amputations of the fourth toe. There is marked deformity of the fifth t oe. The third toe has been amputated. There is no evidence for osteomyelitis. Degenerative changes are noted. CONCLUSION: 1. There is no evidence for osteomyelitis. 2. Multiple amputations including the third and fourth digits. Sharad Estrada MD FACR on February 18, 2017 at 18:12 Board Certified Radiologist. This report was verified electronically.
[2017-02-18 18:32] LABS: HEMO FLAGS DIFF FINAL
[2017-02-18 18:46] LABS: ALT (GPT) 29 U/L (12-78); ANION GAP 9 MEQ/L (5-15); AST (GOT) 26 U/L (15-37); BICARBONATE 27.1 MEQ/L (21.0-32.0); BLOOD UREA NITROGEN 10 MG/DL (7-18); CHLORIDE 100 MEQ/L (98-107); GLOMERULAR FILTRATION RATE 79 ML/MIN (>89); POTASSIUM 3.8 MEQ/L (3.5-5.1); SODIUM (NA) 136 MEQ/L (136-145)
[2017-02-18 18:47] LABS: APTT (PATIENT) 27.1 SEC (24.3-30.1); PROTHROMBIN TIME - PATIENT 11.1 SEC (9.8-11.6)
[2017-02-18 18:49] LABS: ALKALINE PHOSPHATASE 129 U/L (45-117); CREATINE KINASE 170 U/L (39-308); TOTAL BILIRUBIN ADULT 0.4 MG/DL (0.2-1.0)
[2017-02-18 19:02] LABS: CKMB 2.6 NG/ML (0.5-3.6)
[2017-02-18 19:13] LABS: PLATELET ESTIMATE SMEAR NORMAL (NORMAL); PLATELET MORPHOLOGY NORMAL (NORMAL); SCAN/DIFF AUTO DIFF CONFIRMED
[2017-02-18] MEDS ORDERED: MORPHINE SULFATE 4 MG/ML INJ IV PUSH ONE (19:45)
[2017-02-18 19:54] VITALS: BP 141/96; PULSE 87; RESP 16; O2SAT 98
[2017-02-18] MEDS ORDERED: CEPH-460 PO (20:27)
[2017-02-18] MEDS ORDERED: DOXY100C PO (20:27)
[2017-02-18] MEDS ORDERED: CEPHALEXIN MONOHYDRATE 500 MG CAP PO ONE (20:30)
[2017-02-18] MEDS ORDERED: DOXYCYCLINE HYCLATE 100 MG CAP PO ONE (20:30)
[2017-02-18 21:34] LABS: BLOOD, URINE SMALL (NEG); COMMENT (UR) CULT NOT INDICATED; CULTURE IF INDICATED CULT NOT INDICATED; GLUCOSE,URINE NEG (NEG); KETONE, URINE NEG (NEG); NITRITE,URINE NEG (NEG); SQUAMOUS EPITHELIAL CELL URINE <1 /hpf (0-5); URINE COLOR YELLOW (YELLW/STRAW)
[2017-02-18] MEDS ORDERED: NALOXONE HCL 0.4 MG/ML AMP IV PRN (22:45)
[2017-02-18] MEDS ORDERED: GLUCAGON 1 MG/ML VIAL OTHER PRN (22:45)
[2017-02-18] MEDS ORDERED: SODIUM CHLORIDE 0.9% FLUSH 10 ML FLUSH IV FLUSH PRN (22:45)
[2017-02-18] MEDS ORDERED: FUROSEMIDE 40 MG/4 ML VIAL IV PUSH ONE (22:45)
[2017-02-18] MEDS ORDERED: DEXTROSE 50% IN WATER 50 ML VIAL(D50) IV PUSH PRN (22:45)
[2017-02-18] MEDS ORDERED: POTASSIUM CHLORIDE 20 MEQ CONTROLLED RELEASE TAB PO ONE (22:45)
[2017-02-19] VITALS (8 sets, daily range): BP systolic 95–138; BP diastolic 56–78; PULSE 63–84; RESP 18; TEMP 97.3–98.5; O2SAT 97–100
--- NOTE | 2017-02-19 00:18 | HHI.HP ---
HPI Service [facility] Primary Care Physician No Primary Care Physician Admission Diagnosis CHF exacerbation, cellulitis second toe right foot Diagnoses: Chief Complaint: "I'm filling up with fluids again" Travel History International Travel<30 Days: No Contact w/Intl Traveler <30 Da: No Traveled to Known Affected Are: No History of Present Illness This is a 52 year old male patient with past medical history which includes: CHF reports last EF 16% wears LifeVest , HTN, DM, recent lower extremity DVT on Xarelto. Patient reports, "I'm filling up with fluids again." Reports he has gained 6 pounds over the past 2 days, C/O BLE edema, SOB and chest tightness/ pain. Reports cough worse when he talks a lot. Also reports he hasn't been eating secondary to feeling full. Reports being compliant with home medications. Denies fevers chills, N/V/D. Per RN patient reported abdominal pain and requesting narcotic pain medication. During evaluation abd exam benign. Patient c/o chest pain, unable to elaborate on detail regain location or type of pain, again asking for narcotic pain medication. Review of Systems Except as stated in HPI: all other systems reviewed are Neg Past Family Social History Past Medical History CHF EF 16% wears LifeVest , HTN, DM, recent lower extremity DVT on Xarelto, Past Surgical History back surgery cyst removed from spine Left arm surgery toes amputated left foot toes 3-4 amputated right foot Reported Medications Lasix (Furosemide) 40 Mg Tab 40 Mg PO BID Lisinopril 20 Mg Tab 40 Mg PO DAILY Coreg (Carvedilol) 12.5 Mg Tab 25 Mg PO Q12HR Lipitor (Atorvastatin Calcium) 10 Mg Tab 10 Mg PO DAILY Norvasc (Amlodipine Besylate) 5 Mg Tab 2.5 Mg PO DAILY Levemir Inj (Insulin Detemir) 1,000 unit/ 10 ML Vial 20 Units SQ BID Lantus Inj (Insulin Glargine) 100 Unit/Ml Inj 23 Unit SQ BID Aldactone (Spironolactone) 25 Mg Tab 25 Mg PO DAILY Janumet (Sitagliptin-Metformin) 50-500 Mg Tab 1 Tab PO BID Xarelto (Rivaroxaban) 20 Mg Tab 20 Mg PO DAILY Pantoprazole (Pantoprazole Sodium) 40 Mg Tab 40 Mg PO DAILY Humalog Inj (Insulin Human Lispro) 1,000 Unit/10 Ml Vial SQ ACHS Folate (Folic Acid) 1 Mg Tab 1 Mg PO DAILY Aspirin 81 Mg Tabdr 81 Mg PO DAILY Allergies: Coded Allergies: Percocet (Verified Allergy, Severe, Rash, 02/18/17) Vancomycin (Verified Allergy, Severe, Rash, 02/18/17) Tylenol (Verified Adverse Reaction, Intermediate, Rash, 02/18/17) *MDRO Multi-Drug Resistant Organism (Verified Adverse Reaction, Unknown, ) MRSA (foot wound) - 09/2015 & 09/26/16 Active Ordered Medications Current Medications Medications (Trade) Dose Ordered Sig/[place] Route Start Time Stop Time Status Last Admin (NS Flush) 2 ml UNSCH PRN IV FLUSH 02/18/17 22:45 (NS Flush) 2 ml BID IV FLUSH 02/19/17 09:00 (Narcan Inj) 0.4 mg UNSCH PRN IV 02/18/17 22:45 (Lasix Inj) 40 mg BID@,18 IV PUSH 02/19/17 09:00 (D50w (Vial) Inj) 25 ml UNSCH PRN IV PUSH 02/18/17 22:45 (Glucagon Inj) 1 mg UNSCH PRN OTHER 02/18/17 22:45 Family History mother [place] has stents cousin also had CHF Social History Denies ETOH use at this time, used to drink a 6 pack per week Tobacco use since 1976 has cut down to 2-3 cigarettes per day. Reports marijuana use Physical Exam Vital Signs Vital Signs Date Time Temp Pulse Resp B/P Pulse Ox O2 Delivery O2 Flow Rate FiO2 02/18/17 19:54 87 16 141/96 98 Room Air 02/18/17 17:40 Room Air 02/18/17 17:37 98.2 92 18 146/85 100 Room Air 02/18/17 16:35 98.8 108 16 138/106 100 Physical Exam GENERAL: This is a well-nourished, well-developed patient, in no apparent distress. SKIN: No rashes, ecchymoses or lesions. Cool and dry. multiple tattoos HEAD: Atraumatic. Normocephalic. No temporal or scalp tenderness. EYES: Extraocular motions intact. No scleral icterus. No injection or drainage. NECK: Trachea midline. No JVD or lymphadenopathy. Supple, nontender, no meningeal signs. CARDIOVASCULAR: Regular rate and rhythm without murmurs, gallops, or rubs. RESPIRATORY: Clear to auscultation. Breath sounds equal bilaterally. No wheezes , rales, or rhonchi. GASTROINTESTINAL: Abdomen soft, non-tender, nondistended. No guarding. MUSCULOSKELETAL: Extremities without clubbing, cyanosis, or edema. No joint tenderness, effusion, or edema noted. No calf tenderness. Negative Homans sign bilaterally. NEUROLOGICAL: Awake and alert. Motor and sensory grossly within normal limits. Five out of 5 muscle strength in all muscle groups. Normal speech. Laboratory Laboratory Tests Test 02/18/17 02/18/17 17:45 21:15 White Blood Count 6.7 Red Blood Count 4.90 Hemoglobin 11.6 Hematocrit 37.0 Mean Corpuscular Volume 75.5 Mean Corpuscular Hemoglobin 23.6 Mean Corpuscular Hemoglobin 31.2 Concent Red Cell Distribution Width 19.1 Platelet Count 192 Mean Platelet Volume 9.0 Neutrophils (%) (Auto) 57.5 Lymphocytes (%) (Auto) 30.2 Monocytes (%) (Auto) 5.6 Eosinophils (%) (Auto) 5.9 Basophils (%) (Auto) 0.8 Neutrophils # (Auto) 3.8 Lymphocytes # (Auto) 2.0 Monocytes # (Auto) 0.4 Eosinophils # (Auto) 0.4 Basophils # (Auto) 0.1 CBC Comment DIFF FINAL Differential Comment AUTO DIFF CONFIRMED Platelet Estimate NORMAL Platelet Morphology Comment NORMAL Prothrombin Time 11.1 Prothromb Time International 1.0 Ratio Activated Partial 27.1 Thromboplast Time Sodium Level 136 Potassium Level 3.8 Chloride Level 100 Carbon Dioxide Level 27.1 Anion Gap 9 Blood Urea Nitrogen 10 Creatinine 0.99 Estimat Glomerular Filtration 79 Rate Random Glucose 187 Calcium Level 9.0 Magnesium Level 2.0 Total Bilirubin 0.4 Aspartate Amino Transf 26 (AST/SGOT) Alanine Aminotransferase 29 (ALT/SGPT) Alkaline Phosphatase 129 Total Creatine Kinase 170 Creatine Kinase MB 2.6 Troponin I 0.03 B-Type Natriuretic Peptide 1243 Total Protein 8.4 Albumin 3.5 Urine Color YELLOW Urine Turbidity CLEAR Urine pH 7.0 Urine Specific [place] 1.016 Urine Protein GREATER THAN 600 Urine Glucose (UA) NEG Urine Ketones NEG Urine Occult Blood SMALL Urine Nitrite NEG Urine Bilirubin NEG Urine Urobilinogen LESS THAN 2.0 Urine Leukocyte Esterase NEG Urine RBC 1 Urine WBC LESS THAN 1 Urine Squamous Epithelial <1 Cells Microscopic Urinalysis Comment CULT NOT INDICATED Result Diagram: 02/18/17 1745 02/18/17 1745 Assessment and Plan Assessment and Plan This is a 52 year old male patient with past medical history which includes: CHF reports last EF 16% wears LifeVest , HTN, DM, recent lower extremity DVT on Xarelto. Patient reports, "I'm filling up with fluids again." Reports he has gained 6 pounds over the past 2 days, C/O BLE edema, SOB and chest tightness/ pain. CHF acute on chronic systolic CHF exacerbation Chest pain BNP 1243 Lasix 40 mg IV push BID serial troponin continue Lifevest follow up with outpatient cardiology Continue lisinopril, Coreg and spironolactone DM blood glucose ACHS and medium dose SSI monitor tread then consider restarting long acting insulin X-ray of the right foot: No evidence of osteomyelitis per report hyperlipemia- continue Lipitor history of recurrent DVT- continue Xarelto Question malingering for pain medication Per RN patient reported abdominal pain and requesting narcotic pain medication. During evaluation abd exam benign. Patient c/o chest pain, unable to elaborate on detail regain location or type of pain, again asking for narcotic pain medication discussed with ER provider, nursing and patient Written by Marium Aburto, acting as scribe for Dr. Singh on 02/19/17 at 00: 43. All or portions of this note were transcribed by scribe [Marium Aburto]. I, Dr. Matthew Singh personally performed the history, physical exam, and medical decision making; and confirmed the accuracy of the information in the transcribed note. Authenticated by Dr. Matthew Singh on 02/19/17 at 00:43. Discussed Condition With patient, ER Marium Velasco Feb 19, 2017 00:18 Matthew Singh MD Feb 19, 2017 07:16
[2017-02-19] MEDS ORDERED: traMADol HCL 50 MG TAB PO ONE (00:30)
[2017-02-19] MEDS ORDERED: NITROGLYCERIN 0.4 MG SL 25 TABS/BTL SL PRN (00:30)
[2017-02-19] MEDS ORDERED: PILL SPLITTER OTHER PRN (00:45)
[2017-02-19] MEDS ORDERED: RESP: ALBUTEROL 2.5 MG/IPRATROPIUM 0.5 MG NEB (PRN) NEB (04:00)
[2017-02-19] MEDS: INSULIN ASPART SUPPLEMENTAL SCALE SQ SCH ×4 (06:32→21:00)
[2017-02-19] MEDS: SPIRONOLACTONE 25 MG TAB PO SCH (08:41)
[2017-02-19] MEDS: PANTOPRAZOLE SOD 40 MG DELAYED RELEASE TAB PO SCH (08:41)
[2017-02-19] MEDS: amLODIPine BESYLATE 5 MG TAB PO SCH (08:41)
[2017-02-19] MEDS: LISINOPRIL 20 MG TAB PO SCH (08:41)
[2017-02-19] MEDS: FOLIC ACID 1 MG TAB PO SCH (08:41)
[2017-02-19] MEDS: ATORVASTATIN 10 MG TAB PO SCH (08:41)
[2017-02-19] MEDS: FUROSEMIDE 40 MG/4 ML VIAL IV PUSH SCH ×2 (08:42→17:59)
[2017-02-19] MEDS: CARVEDILOL 12.5 MG TAB PO SCH ×2 (08:42→21:00)
[2017-02-19] MEDS: SODIUM CHLORIDE 0.9% FLUSH 10 ML FLUSH IV FLUSH SCH ×2 (08:42→21:00)
[2017-02-19] MEDS: ASPIRIN EC 81 MG TABEC PO SCH (08:42)
[2017-02-19] MEDS ORDERED: RIVAROXABAN 20 MG TAB PO SCH (09:00)
--- NOTE | 2017-02-19 11:31 | EKG ---
Date Performed: 02/19/2017 Time Performed: 06:02:26 PTAGE: 52 years EKG: Sinus rhythm POSSIBLE RIGHT VENTRICULAR HYPERTROPHY ST DEVIATION AND MODERATE T-WAVE ABNORMALITY, CONSIDER LATERA L ISCHEMIA ABNORMAL ECG PREVIOUS TRACING : 02/18/2017 23.43 DOCTOR: Kamron Webster Interpretating Date/Time 02/19/2017 11:30:38
--- NOTE | 2017-02-19 11:36 | EKG ---
Date Performed: 02/18/2017 Time Performed: 23:43:51 PTAGE: 52 years EKG: Sinus rhythm LEFT ANTERIOR FASCICULAR BLOCK LEFT VENTRICULAR HYPERTROPHY AND ST-T CHANGE ABNORMAL ECG PREVIOUS TRACING : 02/18/2017 18.12 DOCTOR: Kamron Webster Interpretating Date/Time 02/19/2017 11:34:21
--- NOTE | 2017-02-19 11:43 | EKG ---
Date Performed: 02/18/2017 Time Performed: 18:12:39 PTAGE: 52 years EKG: Sinus rhythm LEFT ANTERIOR FASCICULAR BLOCK POSSIBLE LEFT VENTRICULAR HYPERTROPHY NONSPECIFIC T-WAVE ABNORMALITY ABNORMAL ECG PREVIOUS TRACING : 01/05/2017 22.29 DOCTOR: Kamron Webster Interpretating Date/Time 02/19/2017 11:38:33
[2017-02-19 12:12] LABS: AUTOMATED NEUTROPHIL # 3.3 TH/MM3 (1.8-7.7); BASOPHIL % 0.7 % (0.0-2.0); EOSINOPHIL # 0.3 TH/MM3 (0-0.4); EOSINOPHIL % 5.8 % (0.0-4.0); HEMATOCRIT 35.1 % (39.0-51.0); LYMPHOCYTE # 1.3 TH/MM3 (1.0-4.8); MEAN CELL VOLUME 75.1 FL (80.0-100.0); MEAN CORPUSCULAR HEMOGLOBIN 23.1 PG (27.0-34.0); MEAN CORPUSCULAR HGB CONC 30.7 % (32.0-36.0); MONO % 6.6 % (0.0-8.0); NEUT % 62.9 % (16.0-70.0); PLATELET COUNT 151 TH/MM3 (150-450); RED BLOOD COUNT 4.68 MIL/MM3 (4.50-5.90); RED CELL DISTRIBUTION WIDTH 19.5 % (11.6-17.2); WHITE BLOOD COUNT 5.2 TH/MM3 (4.0-11.0)
[2017-02-19 12:13] LABS: HEMO FLAGS AUTO DIFF
[2017-02-19 12:49] LABS: BICARBONATE 24.6 MEQ/L (21.0-32.0)
[2017-02-19 13:37] LABS: PLATELET ESTIMATE SMEAR NORMAL (NORMAL); PLATELET MORPHOLOGY ENLARGED (NORMAL)
[2017-02-19 13:38] LABS: HELMET CELLS OCC (NORMAL); SCAN/DIFF AUTO DIFF CONFIRMED
[2017-02-19] MEDS ORDERED: XARE20TA PO (17:10)
[2017-02-19] MEDS: RIVAROXABAN 20 MG TAB PO SCH (17:59)
--- NOTE | 2017-02-19 19:01 | HHI.PR ---
Addendum to Inpatient Note Addendum Reason: Additional Documentation Additional Information Patient currently complaining more of epigastric pain, described as burning associated with nausea but no vomiting. Patient is awake alert oriented 3, not in acute distress. Lungs are clear, there is tenderness to palpation of the epigastric region. Bilateral extremities do not show edema. Left foot shows amputated toes. Continue IV Lasix for acute on chronic systolic CHF exacerbation. Troponins negative 3. EKG sinus rhythm without ST-T changes. Patient has epigastric pain and microcytic anemia. Concerning for gastritis or peptic ulcer disease. I will check lipase, iron studies, stool guaiac and consult gastroenterology. Maxx Martinez MD Feb 19, 2017 19:01
[2017-02-19] MEDS: INSULIN DETEMIR 100 UNITS/ML VIAL SQ SCH (21:00)
[2017-02-19 21:33] LABS: FERRITIN 13 NG/ML (26-388); TRANSFERRIN IRON PROFILE 299 MG/DL (200-360)
[2017-02-19] MEDS ORDERED: PEG (High)/E-LYTE SOLN 4000 ML BTL PO ONE (23:00)
[2017-02-20 00:50] VITALS: PULSE 66
[2017-02-20 03:23] VITALS: BP 100/57; PULSE 61; RESP 18; O2SAT 100
[2017-02-20] MEDS: INSULIN ASPART SUPPLEMENTAL SCALE SQ SCH ×4 (05:51→21:00)
[2017-02-20 07:40] LABS: AUTOMATED NEUTROPHIL # 4.1 TH/MM3 (1.8-7.7); BASOPHIL % 0.6 % (0.0-2.0); EOSINOPHIL # 0.5 TH/MM3 (0-0.4); EOSINOPHIL % 7.5 % (0.0-4.0); HEMATOCRIT 33.7 % (39.0-51.0); LYMPH % 22.5 % (9.0-44.0); LYMPHOCYTE # 1.5 TH/MM3 (1.0-4.8); MEAN CORPUSCULAR HEMOGLOBIN 23.9 PG (27.0-34.0); MEAN CORPUSCULAR HGB CONC 31.9 % (32.0-36.0); MONO % 6.5 % (0.0-8.0); NEUT % 62.9 % (16.0-70.0); PLATELET COUNT 175 TH/MM3 (150-450); RED BLOOD COUNT 4.49 MIL/MM3 (4.50-5.90); RED CELL DISTRIBUTION WIDTH 19.2 % (11.6-17.2); WHITE BLOOD COUNT 6.6 TH/MM3 (4.0-11.0)
[2017-02-20 07:52] LABS: HEMO FLAGS AUTO DIFF
[2017-02-20 08:12] LABS: ALKALINE PHOSPHATASE 96 U/L (45-117); ALT (GPT) 19 U/L (12-78); ANION GAP 8 MEQ/L (5-15); AST (GOT) 22 U/L (15-37); BICARBONATE 27.2 MEQ/L (21.0-32.0); BLOOD UREA NITROGEN 14 MG/DL (7-18); CHLORIDE 103 MEQ/L (98-107); GLOMERULAR FILTRATION RATE 76 ML/MIN (>89); MAGNESIUM 1.9 MG/DL (1.5-2.5); POTASSIUM 4.5 MEQ/L (3.5-5.1); SODIUM (NA) 138 MEQ/L (136-145); TOTAL BILIRUBIN ADULT 0.5 MG/DL (0.2-1.0)
--- NOTE | 2017-02-20 08:13 | PD.CONS ---
HPI History of Present Illness This is a 52 year old with CHF/CMP, who has worn a Life Vest for the past 18 months. He reports that he tends to swell with fluids because of his heart. He came to the hospital for evaluation of chest and epigastric pain. This is a pressure like midsternal chest pain that then moves to his epigastric area, where it is a burning pain that radiates to his umbilicus. He reports that this has been going on for several months. It seems to be aggravated by po intake, even small meals. He has associated early satiety and bloating. He also frequently has nausea, although only vomits on occasion. He tends to have chronic constipation and he takes colace for this and it seems to help. He denies any black stools or melena. 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 He was supposed to have an AICD placed last year, but he developed an infection in his toes and had to have several toes amputated. He is hoping that he will be able to have this placed this year, but states he was told that he would still have to wear the life vest for another 6 months after his AICD is placed. He takes Xarelto for a hx of DVT. He is also on a baby asa. He had a colonoscopy in 2003. PFSH Past Medical History CHF EF 16% wears LifeVest HTN DM Recent lower extremity DVT on Xarelto Neuropathy Hx multiple toe infections, with 7 toes amputated. Past Surgical History Back surgery cyst removed from spine Left arm surgery Toes amputated left foot Toes 3-4 amputated right foot Colonoscopy Coded Allergies: Percocet (Verified Allergy, Severe, Rash, 02/18/17) Vancomycin (Verified Allergy, Severe, Rash, 02/18/17) Tylenol (Verified Adverse Reaction, Intermediate, Rash, 02/18/17) *MDRO Multi-Drug Resistant Organism (Verified Adverse Reaction, Unknown, ) MRSA (foot wound) - 09/2015 & 09/26/16 Medications Allergies Coded Allergies Type Severity Reaction Last Updated Verified Percocet Allergy Severe Rash 02/18/17 Yes Vancomycin Allergy Severe Rash 02/18/17 Yes Tylenol Adverse Reaction Intermediate Rash 02/18/17 Yes *MDRO Multi-Drug Resistant Organism Adverse Reaction Unknown 02/18/17 Yes Active Scripts Medications Dose Route/Sig Days Date Category Xarelto (Rivaroxaban) 20 Mg Tab 20 Mg PO DAILY@1600 02/19/17 Reported Lantus Inj (Insulin Glargine) 100 Unit/Ml Inj 23 Unit SQ BID 02/18/17 Reported Lasix (Furosemide) 40 Mg Tab 40 Mg PO BID 01/06/17 Rx Lisinopril 20 Mg Tab 40 Mg PO DAILY 10/26/16 Rx Coreg (Carvedilol) 12.5 Mg Tab 25 Mg PO Q12HR 10/26/16 Rx Lipitor (Atorvastatin Calcium) 10 Mg Tab 10 Mg PO DAILY 10/26/16 Rx Norvasc (Amlodipine Besylate) 5 Mg Tab 2.5 Mg PO DAILY 10/26/16 Rx Levemir Inj (Insulin Detemir) 1,000 unit/ 10 ML Vial 20 Units SQ BID 10/04/16 Rx Aldactone (Spironolactone) 25 Mg Tab 25 Mg PO DAILY 09/26/16 Reported Janumet (Sitagliptin-Metformin) 50-500 Mg Tab 1 Tab PO BID 09/26/16 Reported Pantoprazole (Pantoprazole Sodium) 40 Mg Tab 40 Mg PO DAILY 09/26/16 Reported Humalog Inj (Insulin Human Lispro) 1,000 Unit/10 Ml Vial SQ ACHS 09/26/16 Reported Folate (Folic Acid) 1 Mg Tab 1 Mg PO DAILY 09/26/16 Reported Aspirin 81 Mg Tabdr 81 Mg PO DAILY 09/26/16 Reported Family History Mother with cardiac disease. Social History Occasional ETOH Tobacco use since 1976 has cut down to 2-3 cigarettes per day. Reports marijuana use Review of Systems Constitutional: COMPLAINS OF: Fatigue, Weight gain, Chills, Night Sweats, DENIES: Fever, Weight loss Respiratory: COMPLAINS OF: Shortness of breath, DENIES: Cough Cardiovascular: COMPLAINS OF: Chest pain Gastrointestinal: COMPLAINS OF: Abdominal pain, Constipation, Nausea, Swelling of Abdomen, DENIES: Black stools, Bloody stools, Diarrhea, Vomiting, Heartburn Musculoskeletal: COMPLAINS OF: Back pain Neurologic: DENIES: Headache Psychiatric: DENIES: Confusion GI Exam Vitals I&O Vital Signs Date Time Temp Pulse Resp B/P Pulse Ox O2 Delivery O2 Flow Rate FiO2 02/20/17 03:23 61 18 100/57 100 02/20/17 00:50 66 02/19/17 23:29 97.6 73 18 118/72 100 02/19/17 19:54 98.5 69 18 118/69 98 02/19/17 11:52 97.4 63 18 95/56 98 02/19/17 09:00 81 02/19/17 08:27 97.3 75 18 127/78 98 I/O 02/19/17 02/19/17 02/19/17 02/20/17 02/20/17 02/20/17 07:00 15:00 23:00 07:00 15:00 23:00 Intake Total 840 ml Balance 840 ml Intake Oral 840 ml # Voids 1 8 Imaging Last Impressions Foot X-Ray 02/18/171740 Signed Impressions: Service Date/Time: Saturday, February 18, 2017 17:56 - CONCLUSION: 1. There is no evidence for osteomyelitis. 2. Multiple amputations including the third and fourth digits. Sharad Estrada MD FACR Chest X-Ray 02/18/171740 Signed Impressions: Service Date/Time: Saturday, February 18, 2017 18:01 - CONCLUSION: No acute disease. Sharad Estrada MD FACR Laboratory Test 02/19/17 02/20/17 11:40 07:22 White Blood Count 5.2 TH/MM3 6.6 TH/MM3 Red Blood Count 4.68 MIL/MM3 4.49 MIL/MM3 Hemoglobin 10.8 GM/DL 10.7 GM/DL Hematocrit 35.1 % 33.7 % Mean Corpuscular Volume 75.1 FL 75.0 FL Mean Corpuscular Hemoglobin 23.1 PG 23.9 PG Mean Corpuscular Hemoglobin 30.7 % 31.9 % Concent Red Cell Distribution Width 19.5 % 19.2 % Platelet Count 151 TH/MM3 175 TH/MM3 Mean Platelet Volume 9.0 FL 8.6 FL Neutrophils (%) (Auto) 62.9 % 62.9 % Lymphocytes (%) (Auto) 24.0 % 22.5 % Monocytes (%) (Auto) 6.6 % 6.5 % Eosinophils (%) (Auto) 5.8 % 7.5 % Basophils (%) (Auto) 0.7 % 0.6 % Neutrophils # (Auto) 3.3 TH/MM3 4.1 TH/MM3 Lymphocytes # (Auto) 1.3 TH/MM3 1.5 TH/MM3 Monocytes # (Auto) 0.3 TH/MM3 0.4 TH/MM3 Eosinophils # (Auto) 0.3 TH/MM3 0.5 TH/MM3 Basophils # (Auto) 0.0 TH/MM3 0.0 TH/MM3 CBC Comment AUTO DIFF AUTO DIFF Differential Comment AUTO DIFF CONFIRMED Platelet Estimate NORMAL Platelet Morphology Comment ENLARGED Helmet Cells OCC Sodium Level 136 MEQ/L Potassium Level 4.0 MEQ/L Chloride Level 102 MEQ/L Carbon Dioxide Level 24.6 MEQ/L Anion Gap 9 MEQ/L Blood Urea Nitrogen 11 MG/DL Creatinine 0.95 MG/DL Estimat Glomerular Filtration 83 ML/MIN Rate Random Glucose 267 MG/DL Calcium Level 8.4 MG/DL Iron Level 22 MCG/DL Total Iron Binding Capacity 419 MCG/DL Percent Iron Saturation 5.3 % Ferritin 13 NG/ML Total Creatine Kinase 74 U/L Troponin I 0.03 NG/ML Lipase 92 U/L Physical Examination HEENT: Normocephalic; atraumatic; no jaundice. CHEST: CTA CARDIAC: RRR ABDOMEN: Soft, nondistended, nontender; no hepatosplenomegaly; bowel sounds are present in all four quadrants. EXTREMITIES: No clubbing, cyanosis, or edema. SKIN: Normal; no rash; no jaundice. TELETYPESETTER MONITOR: No focal deficits; alert and oriented times three. Assessment and Plan Plan ASSESSMENT: - Epigastric pain/Atypical CP. Patient with known heart disease with severe cardiomyopathy who has a Life Vest for the past 18 months. For several months he's been having intermittent chest and epigastric pain. This starts as a substernal chest pressure and then turns into the burning epigastric pain that radiates to his umbilicus. This seems to be related to food intake. He has associated nausea without vomiting, bloating, early satiety. Of note, He does have diabetes and neuropathy. He denies any history of peptic ulcer disease. Of note he is also on Xarelto for history of DVT - Iron deficiency anemia. Iron 22, TIBC 419, iron saturation 5.3, ferritin 13. HH 10.7/33.7. Last colonoscopy was 2003. He denies any melena or hematochezia. - Severe cardiomyopathy with EF of 16%, CHF. [place] His plant assigner Is actually in [place]. He reports that he has had a lysis for the past 18 months. He was supposed to have an AICD placed Last year, but developed diabetic wound infections in his toes and had to have amputations and therefore this was postponed. He is hoping to have an AICD placed later this year, but states that he'll have to wear his life asked another 6 months after his AICD is placed. Cardiology has been consulted - Diabetes, peripheral neuropathy. Per primary PLAN: - ? EGD/Colonoscopy if cleared by cardiology and anesthesiology - NPO for now - If unable to have egd/colonoscopy, consider GES - PPI - Monitor labs - Supportive care - Further recommendations to follow based on results of above - Pt seen and examined by Dr. Colin and myself and this note is written on his behalf. Kathy Dowell Feb 20, 2017 08:13
[2017-02-20 08:17] LABS: CREATINE KINASE 64 U/L (39-308)
--- NOTE | 2017-02-20 08:38 | HHI.PR ---
Subjective Remarks Follow up for CHF exacerbation, epigastric pains, chest pains. The patient reports mild improvement of shortness of breath. He continues to experience orthopnea. His leg swelling has improved. He reports continued nonproductive cough and chest pains overnight. He also reports epigastric pain, planning for EGD/colonoscopy today. 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 Objective Vitals Vital Signs Date Time Temp Pulse Resp B/P Pulse Ox O2 Delivery O2 Flow Rate FiO2 02/20/17 03:23 61 18 100/57 100 02/20/17 00:50 66 02/19/17 23:29 97.6 73 18 118/72 100 02/19/17 19:54 98.5 69 18 118/69 98 02/19/17 11:52 97.4 63 18 95/56 98 02/19/17 09:00 81 I/O 02/19/17 02/19/17 02/19/17 02/20/17 02/20/17 02/20/17 07:00 15:00 23:00 07:00 15:00 23:00 Intake Total 840 ml Balance 840 ml Intake Oral 840 ml # Voids 1 8 Result Diagram: 02/20/1772102/20/17721 Imaging Last Impressions Foot X-Ray 02/18/171740 Signed Impressions: Service Date/Time: Saturday, February 18, 2017 17:56 - CONCLUSION: 1. There is no evidence for osteomyelitis. 2. Multiple amputations including the third and fourth digits. Sharad Estrada MD FACR Chest X-Ray 02/18/171740 Signed Impressions: Service Date/Time: Saturday, February 18, 2017 18:01 - CONCLUSION: No acute disease. Sharad Estrada MD FACR Objective Remarks GENERAL: Well-nourished, well-developed middle aged male patient in [facility]. SKIN: Warm and dry. No rash. HEENT: Normocephalic. Atraumatic. Pupils equal and round. Mucous membranes pink and moist. NECK: Supple. Trachea midline. CARDIOVASCULAR: Regular rate and rhythm. S1, S2 noted. No murmur appreciated. Life Vest in place. RESPIRATORY: No accessory muscle use. Clear to auscultation. Breath sounds equal bilaterally. GASTROINTESTINAL: Abdomen soft, non-tender, nondistended. Normoactive bowel sounds x4. MUSCULOSKELETAL: No obvious deformities. Extremities without clubbing, cyanosis , or edema. NEUROLOGICAL: Awake and alert. No obvious cranial nerve deficits. Motor grossly within normal limits. Normal speech. PSYCHIATRIC: Appropriate mood and affect; insight and judgment normal. Medications and IVs Current Medications Medications (Trade) Dose Ordered Sig/[place] Route Start Time Stop Time Status Last Admin (NS Flush) 2 ml UNSCH PRN IV FLUSH 02/18/17 22:45 (NS Flush) 2 ml BID IV FLUSH 02/19/17 09:00 02/20/17 12:41 (Narcan Inj) 0.4 mg UNSCH PRN IV 02/18/17 22:45 (Lasix Inj) 40 mg BID@09,18 IV PUSH 02/19/17 09:00 02/20/17 12:39 (D50w (Vial) Inj) 25 ml UNSCH PRN IV PUSH 02/18/17 22:45 (Glucagon Inj) 1 mg UNSCH PRN OTHER 02/18/17 22:45 (Nitrostat Sl) 0.4 mg Q5M PRN SL 02/19/17 00:30 (Norvasc) 2.5 mg DAILY PO 02/19/17 09:00 02/20/17 12:41 (Ecotrin Ec) 81 mg DAILY PO 02/19/17 09:00 02/20/17 12:41 (Lipitor) 10 mg DAILY PO 02/19/17 09:00 02/20/17 12:41 (Coreg) 25 mg Q12HR PO 02/19/17 09:00 02/20/17 12:40 (Folate) 1 mg DAILY PO 02/19/17 09:00 02/20/17 12:41 (Prinivil) 40 mg DAILY PO 02/19/17 09:00 02/20/17 12:41 (Protonix) 40 mg DAILY PO 02/19/17 09:00 02/20/17 12:40 (Aldactone) 25 mg DAILY PO 02/19/17 09:00 02/20/17 12:41 (Pill Splitter) 1 ea UNSCH PRN OTHER 02/19/17 00:45 (Levemir Inj) 10 units Q12HR SQ 02/19/17 21:00 02/20/17 09:00 (Xarelto) 20 mg DAILY@1700 PO 02/19/17 17:33 02/19/17 17:59 A/P Assessment and Plan 52 year old male patient with past medical history which includes: CHF reports last EF 16% wears LifeVest , HTN, DM, recent lower extremity DVT on Xarelto. Patient reports, "I'm filling up with fluids again." Reports he has gained 6 pounds over the past 2 days, C/O BLE edema, SOB and chest tightness/pain. Acute on chronic systolic CHF exacerbation: BNP 1243. CXR images reviewed, shows no acute findings. +weight gain and edema. -Continue Lasix 40 mg IV push BID -continue Lifevest, patient has plan to f/up with road production general manager in [place] next month for AICD (defibrillator placement delayed secondary to osteomyelitis, now resolved) -Continue lisinopril, Coreg and spironolactone Chest Pain: likely secondary to CHF as above. -ACS ruled out with negative serial cardiac enzymes x4 and EKG without acute ischemic changes -chest pain improving Epigastric Pain: Lipase and LFTs wnl. Pains occur after meals with associated nausea/bloating/early satiety. Possible diabetic gastroparesis, however rule out PUD. -Consult gastroenterology -EGD/colonoscopy only showed gastritis -advanced diet DM: chronic, HgbA1c 8.3 on 10/21/16 Monitor Accu-cheks and cover with medium dose SSI Restart long acting insulin Levemir 10u sq bid X-ray of the right foot: No evidence of osteomyelitis per report. hyperlipemia: Chronic, continue Lipitor history of recurrent DVT: chronic, continue Xarelto Question malingering for pain medication: Per RN patient reported abdominal pain and requesting narcotic pain medication. During evaluation abd exam benign. Patient c/o chest pain, unable to elaborate on detail regain location or type of pain, again asking for narcotic pain .medication Written by Rita Mccullough, acting as scribe for Dr. Back on 02/20/17 at 08:38. All or portions of this note were transcribed by scribe GEORGINA Velazquez. I , Dr. Constantin Back personally performed the history, physical exam, and medical decision making; and confirmed the accuracy of the information in the transcribed note. Authenticated by Dr. Constantin Back on 02/21/17 at 00:12. Rita Mccullough PA-C Feb 20, 2017 08:38 Aman Back DO Feb 21, 2017 00:12
[2017-02-20] MEDS: INSULIN DETEMIR 100 UNITS/ML VIAL SQ SCH ×2 (09:00→21:00)
[2017-02-20 09:46] LABS: SCAN/DIFF AUTO DIFF CONFIRMED
[2017-02-20] MEDS ORDERED: PROPOFOL 200 MG/20 ML AMP IV ONE (10:47)
--- NOTE | 2017-02-20 11:37 | GIPROC ---
[facility] [address] [facility]. [facility], [address] COLONOSCOPY PROCEDURE REPORT EXAM DATE: 02/20/2017 PATIENT NAME: Guerrero Hu MR #: [id number] BIRTHDATE: 1965 ENDOSCOPIST: Lion Colin MD ORDER #: [id number] HOME HEALTH ATTENDANT: Freddy Gomez and Shola Good STATUS: inpatient INDICATIONS: The patient is a 52 yr old male here for a colonoscopy due to abdominal pain and anemia, non-specific PROCEDURE PERFORMED: Colonoscopy, diagnostic MEDICATIONS: None and Per Anesthesia. PREP QUALITY: fair ESTIMATED BLOOD LOSS: None CONSENT: The patient understands the risks and benefits of the procedure and understands that these risks include, but are not limited to: sedation, allergic reaction, infection, perforation and/or bleeding. Alternative means of evaluation and treatment include, among others: physical exam, x-rays, and/or surgical intervention. The patient elects to proceed with this endoscopic procedure. medical equipment was checked for proper function. Hand hygiene and appropriate measures for infection prevention was taken. After the risks, benefits and alternatives of the procedure were thoroughly explained, Informed consent was verified, confirmed and timeout was successfully executed by the treatment team. A digital exam revealed no abnormalities of the rectum The Pentax [id number] endoscope was introduced through the anus and advanced to the cecum, which was identified by both the appendix and ileocecal valve. The instrument was then slowly withdrawn as the colon was fully examined. COLON FINDINGS: Some stool throughout the colon. The colon mucosa was otherwise normal. Retroflexed views revealed no abnormalities The scope was then completely withdrawn from the patient and the procedure terminated. ADVERSE EVENTS: There were no complications. IMPRESSIONS: 1. Some stool throughout the colon 2. The colon mucosa was otherwise normal 3. Retroflexed views revealed no abnormalities 4. Revealed no abnormalities of the rectum RECOMMENDATIONS: 1. Yearly hemoccult 2. High fiber diet RECALL: Return 5 years Colonoscopy Lion Colin MD eSigned: Lion Colin MD 02/20/2017 11:37 AM cc:
[2017-02-20 12:00] VITALS: PULSE 62
[2017-02-20 12:03] VITALS: BP 127/73; PULSE 62; RESP 20; TEMP 98; O2SAT 98
[2017-02-20] MEDS: FUROSEMIDE 40 MG/4 ML VIAL IV PUSH SCH ×2 (12:39→17:48)
[2017-02-20] MEDS: CARVEDILOL 12.5 MG TAB PO SCH ×2 (12:40→21:35)
[2017-02-20] MEDS: PANTOPRAZOLE SOD 40 MG DELAYED RELEASE TAB PO SCH (12:40)
[2017-02-20] MEDS: SPIRONOLACTONE 25 MG TAB PO SCH (12:41)
[2017-02-20] MEDS: SODIUM CHLORIDE 0.9% FLUSH 10 ML FLUSH IV FLUSH SCH ×2 (12:41→21:00)
[2017-02-20] MEDS: ATORVASTATIN 10 MG TAB PO SCH (12:41)
[2017-02-20] MEDS: ASPIRIN EC 81 MG TABEC PO SCH (12:41)
[2017-02-20] MEDS: LISINOPRIL 20 MG TAB PO SCH (12:41)
[2017-02-20] MEDS: FOLIC ACID 1 MG TAB PO SCH (12:41)
[2017-02-20] MEDS: amLODIPine BESYLATE 5 MG TAB PO SCH (12:41)
[2017-02-20 16:15] VITALS: BP 112/64; PULSE 59; RESP 20; TEMP 98.5; O2SAT 98
--- NOTE | 2017-02-20 16:42 | MB ---
cc: SANTANA BRAVO DO DATE OF CONSULTATION: 02/20/2017 REASON FOR CONSULTATION: CHF exacerbation and cellulitis of second right toe. HISTORY OF PRESENT ILLNESS: Guerrero Hu is a pleasant 52 year old male who presents to [facility] emergency room on February 18, 2017, due to increased edema and shortness of breath. He states that he has gained six pounds over the past few days. He does watch his salt and water intake. He does take his weight but not always daily. He noticed that his legs started swelling up and he was more short of breath so he came to the emergency room. He also has a cough which is somewhat nonproductive. He has been decreasing the amount he has been eating secondary to feeling full. He has also noticed some abdominal pain. Lastly he does have some chest pain that he feels when he has difficulty breathing. He has currently been in a LifeVest for what appears to be 18 months. He follows with a metal milling machine operator in [place] who had planned on placing an ICD but at that time he needed to have toes removed and had an infection from this and so it was put off and he has continued on the LifeVest. PAST MEDICAL HISTORY 1. Nonischemic cardiomyopathy with an ejection fraction of 15% currently on a LifeVest 2. Hypertension 3. Diabetes mellitus 4. Lower extremity DVT on Xarelto 5. Peripheral vascular disease. PAST SURGICAL HISTORY 1. Cardiac catheterization October 24, 2016) left main with mild disease distally at 40-50%, LAD, diffuse mild disease, left circumflex 20% disease, RCA 20% proximal and distal. 2. Back surgery with a cyst removed from his spine. 3. Left arm surgery. 4. Left toes amputated. 5. Right toes amputated. ALLERGIES 1. PERCOCET 2. VANCOMYCIN. 3. TYLENOL MEDICATIONS 1. Lisinopril 40 mg daily 2. Xarelto 20 mg daily 3. Coreg 25 mg every 12 hours. 4. Norvasc 2.5 mg daily 5. Janumet 50/500 b.i.d. 6. Lipitor 10 mg daily 7. Levemir 20-units b.i.d. 8. Lantus 23 units b.i.d. 9. Humalog sliding scale. 10. Lasix 40 mg b.i.d. 11. Aldactone 25 mg daily 12. Aspirin 81 mg daily 13. Protonix 40 mg daily 14. Folate 1 mg daily. FAMILY HISTORY Mother had a myocardial infarction. Denies premature coronary artery disease or sudden cardiac within the family. SOCIAL HISTORY Previously drank a six-pack per week but denies current alcohol use. He has used tobacco since 1976 but cut it down to 2-3 cigarettes per day. He does use marijuana. REVIEW OF SYSTEMS 14-systems were reviewed including osteopathic pertinent positives and negatives above, otherwise negative. PHYSICAL EXAMINATION Vital signs: Temperature 98.0, heart rate 62, blood pressure 127/73, respirations 20, pulse ox 98% on room air. General: The patient appears well in no acute distress, alert awake and oriented x3. Extraocular muscles intact. Mucous membranes moist. Neck: Neck is supple. No JVD at 45 degrees. No carotid bruits heard bilaterally. Carotid upstroke is brisk in nature. Heart: Heart is regular rate and rhythm. Positive first and second heart sounds with no murmurs, gallops or rubs. Lungs: Lungs have decreased breath sounds at bilateral bases but no overt wheezes, rales or rhonchi. Abdomen: Abdomen is somewhat distended but soft. Extremities: Show trace edema bilaterally. Multiple amputations noted of the toes. Neurologically: No focal deficits. Skin: Warm, dry and intact. Osteopathic: No kyphoscoliosis, lordosis or paraspinal tender points. LABORATORY WORK-UP: Hemoglobin 10.7, hematocrit 33.7, platelets 175. Potassium 4.5, BUN 14, creatinine 1.03, troponin negative x3. IMPRESSION 1. Acute on chronic systolic heart failure. 2. Nonischemic cardiomyopathy with an ejection fraction of 15%. 3. Recent cardiac catheterization (October 2016) 4. Currently wearing a LifeVest due to known systolic heart failure. 5. Atypical chest pain mostly noted with his shortness of breath. 6. Diabetes mellitus 7. Abdominal pain. 8. Hyperlipidemia 9. History of DVT on Xarelto 10. Tobacco abuse. RECOMMENDATIONS 1. At this time it appears that he has some confusion about his current diuretic as he told me that he was on Lasix 20 milligrams but it was documented as 40 milligrams and also documented as 40 milligrams b.i.d. At any rate, he will most likely need to increase his Lasix dose from whatever he was taking most recently. I have asked him to watch his weight daily and if he increased by two pounds over 24 hours or three pounds over 48 hours, then he needs to take an extra dose. 2. As far as his chest pain goes he had a recent cardiac catheterization with mild coronary artery disease. Chest pain only appears when he is more short of breath and he just feels he cannot get the breath into his lungs. This appears atypical and would not warrant further workup for possible ischemic evaluation as he recently had a cardiac catheterization. 3. As far as his abdominal pain goes we plan on doing an EGD and colonoscopy. I was asked for risk assessment and as he recently had a cardiac catheterization showing no ischemic lesions and he currently does not appear in acute heart failure as he has been diuresed since arrival, I feel that he can undergo this with moderate risk. This was discussed with Dr. Colin. 4. He will continue on a LifeVest per his recommendations from his metal milling machine operator in [place]. 5. His metal milling machine operator in [place] is planning on doing an ICD sometime within the next 2 months, as he has been on a LifeVest for 18 months. 6. Continue Xarelto for history of DVT. Thank you for allowing me to see Guerrero Hu. If there are any questions, please do not hesitate to call. Santana Bravo DO VGP/GRANT /1:38 PM /4:08 PM
[2017-02-20] MEDS: RIVAROXABAN 20 MG TAB PO SCH (17:49)
[2017-02-20 19:51] VITALS: BP 112/64; PULSE 67; RESP 20; TEMP 98.6; O2SAT 99
[2017-02-21 00:05] VITALS: BP 111/67; PULSE 58; RESP 18; TEMP 98; O2SAT 98
[2017-02-21 04:03] VITALS: BP 106/59; PULSE 61; RESP 20; TEMP 98; O2SAT 95
[2017-02-21] MEDS: INSULIN ASPART SUPPLEMENTAL SCALE SQ SCH ×2 (07:00→11:00)
[2017-02-21 08:00] VITALS: BP 118/72; PULSE 61; RESP 20; TEMP 98.5; O2SAT 97
--- NOTE | 2017-02-21 09:29 | HHI.PR ---
Subjective Remarks Follow up for CHF exacerbation, epigastric pain, chest pains. The patient reports his breathing is much improved, denies shortness of breath, O2 sat stable on room air. Denies any further chest pains or epigastric pains. He tolerated his diet. Feels much better and ready for discharge. He plans to see his insert molding operator in [place] during the 3rd week of March. Objective Vitals Vital Signs Date Time Temp Pulse Resp B/P Pulse Ox O2 Delivery O2 Flow Rate FiO2 02/21/17 08:00 98.5 61 20 118/72 97 02/21/17 04:03 98.0 61 20 106/59 95 02/21/17 00:05 98.0 58 18 111/67 98 02/20/17 19:51 98.6 67 20 112/64 99 02/20/17 16:15 98.5 59 20 112/64 98 02/20/17 12:03 98.0 62 20 127/73 98 02/20/17 12:00 62 02/20/17 11:20 57 17 123/80 97 Room Air 02/20/17 11:05 97.7 60 15 117/74 97 Room Air I/O 02/20/17 02/20/17 02/20/17 02/21/17 02/21/17 02/21/17 07:00 15:00 23:00 07:00 15:00 23:00 Intake Total 200 ml 1560 ml Balance 200 ml 1560 ml Intake Oral 1560 ml IV Total 100 ml Other 100 ml # Voids 14 Result Diagram: 02/20/1772102/20/17721 Imaging Last Impressions Foot X-Ray 02/18/171740 Signed Impressions: Service Date/Time: Saturday, February 18, 2017 17:56 - CONCLUSION: 1. There is no evidence for osteomyelitis. 2. Multiple amputations including the third and fourth digits. Sharad Estrada MD FACR Chest X-Ray 02/18/171740 Signed Impressions: Service Date/Time: Saturday, February 18, 2017 18:01 - CONCLUSION: No acute disease. Sharad Estrada MD FACR Objective Remarks GENERAL: Well-nourished, well-developed middle aged male patient in [facility]. SKIN: Warm and dry. No rash. HEENT: Normocephalic. Atraumatic. Pupils equal and round. Mucous membranes pink and moist. NECK: Supple. Trachea midline. CARDIOVASCULAR: Regular rate and rhythm. S1, S2 noted. No murmur appreciated. Life Vest in place. RESPIRATORY: No accessory muscle use. Clear to auscultation. Breath sounds equal bilaterally. GASTROINTESTINAL: Abdomen soft, non-tender, nondistended. Normoactive bowel sounds x4. MUSCULOSKELETAL: No obvious deformities. Extremities without clubbing, cyanosis , or edema. NEUROLOGICAL: Awake and alert. No obvious cranial nerve deficits. Motor grossly within normal limits. Normal speech. PSYCHIATRIC: Appropriate mood and affect; insight and judgment normal. Procedures 02/20/17 - EGD with gastritis, colonoscopy unremarkable Medications and IVs Current Medications Medications (Trade) Dose Ordered Sig/Orville Route Start Time Stop Time Status Last Admin (NS Flush) 2 ml UNSCH PRN IV FLUSH 02/18/17 22:45 (NS Flush) 2 ml BID IV FLUSH 02/19/17 09:00 02/20/17 21:00 (Narcan Inj) 0.4 mg UNSCH PRN IV 02/18/17 22:45 (Lasix Inj) 40 mg BID@09,18 IV PUSH 02/19/17 09:00 02/20/17 17:48 (D50w (Vial) Inj) 25 ml UNSCH PRN IV PUSH 02/18/17 22:45 (Glucagon Inj) 1 mg UNSCH PRN OTHER 02/18/17 22:45 (Nitrostat Sl) 0.4 mg Q5M PRN SL 02/19/17 00:30 (Norvasc) 2.5 mg DAILY PO 02/19/17 09:00 02/20/17 12:41 (Ecotrin Ec) 81 mg DAILY PO 02/19/17 09:00 02/20/17 12:41 (Lipitor) 10 mg DAILY PO 02/19/17 09:00 02/20/17 12:41 (Coreg) 25 mg Q12HR PO 02/19/17 09:00 02/20/17 21:35 (Folate) 1 mg DAILY PO 02/19/17 09:00 02/20/17 12:41 (Prinivil) 40 mg DAILY PO 02/19/17 09:00 02/20/17 12:41 (Protonix) 40 mg DAILY PO 02/19/17 09:00 02/20/17 12:40 (Aldactone) 25 mg DAILY PO 02/19/17 09:00 02/20/17 12:41 (Pill Splitter) 1 ea UNSCH PRN OTHER 02/19/17 00:45 (Levemir Inj) 10 units Q12HR SQ 02/19/17 21:00 02/20/17 21:00 (Xarelto) 20 mg DAILY@1700 PO 02/19/17 17:33 02/20/17 17:49 Urinary Catheter: No Vascular Central Line Catheter: No A/P Assessment and Plan 52 year old male patient with past medical history which includes: CHF reports last EF 16% wears LifeVest , HTN, DM, recent lower extremity DVT on Xarelto. Patient reports, "I'm filling up with fluids again." Reports he has gained 6 pounds over the past 2 days, C/O BLE edema, SOB and chest tightness/pain. Acute on chronic systolic CHF exacerbation: BNP 1243. CXR images reviewed, shows no acute findings. +weight gain and edema. -S/p Lasix 40 mg IV push BID, now change to po lasix 40mg bid -continue Lifevest, patient has plan to f/up with insert molding operator in [place] next month for AICD (defibrillator placement delayed secondary to osteomyelitis, now resolved) -Continue lisinopril, Coreg and spironolactone Chest Pain: likely secondary to CHF as above. -ACS ruled out with negative serial cardiac enzymes x4 and EKG without acute ischemic changes -chest pain resolved Epigastric Pain: Lipase and LFTs wnl. Pains occur after meals with associated nausea/bloating/early satiety. Possible diabetic gastroparesis, however rule out PUD. -Consulted gastroenterology -EGD/colonoscopy only showed gastritis -continue protonix -advanced diet, patient tolerating well DM: chronic, HgbA1c 8.3 on 10/21/16 Monitor Accu-cheks and cover with medium dose SSI Restart long acting insulin Levemir 10u sq bid X-ray of the right foot: No evidence of osteomyelitis per report. hyperlipemia: Chronic, continue Lipitor history of recurrent DVT: chronic, continue Xarelto Question malingering for pain medication: Per RN patient reported abdominal pain and requesting narcotic pain medication. During evaluation abd exam benign. Patient c/o chest pain, unable to elaborate on detail regain location or type of pain, again asking for narcotic pain .medication Written by Rita Mccullough, acting as scribe for Dr. Newman on 02/21/17 at 10: 50 Discharge Planning Discharge patient to home Condition on discharge: Improved Heart Healthy/Diabetic Diet as tolerated Ad Светлана activity Rx written: lasix 40mg po bid, KCl 10meq po bid, Protonix 40mg daily Follow-up with primary care physician and cardiology Attending Statement This note was transcribed by scribe Rita Mccullough. I, Dr. Jackie Newman personally performed the history, physical exam, and medical decision making; and confirmed the accuracy of the information in the transcribed note. Authenticated by Dr. Jackie Newman on 02/22/17 at 19:05. Rita Mccullough PA-C Feb 21, 2017 09:29 Jackie Newman MD Feb 22, 2017 19:05
[2017-02-21] MEDS ORDERED: PANT40TA3 PO (09:59)
[2017-02-21] MEDS ORDERED: FURO1TAB60 PO (09:59)
--- NOTE | 2017-02-21 10:03 | HHI.DCPOC ---
Discharge Care Plan Diagnosis: (1) CHF (congestive heart failure) (2) Gastritis Goals to Promote Your Health * To prevent worsening of your condition and complications * To maintain your health at the optimal level Directions to Meet Your Goals Take your medications as prescribed Follow your dietary instruction Follow activity as directed Keep your appointments as scheduled Take your immunizations and boosters as scheduled If your symptoms worsen call your PCP, if no PCP go to Urgent Care Center or Emergency Room Smoking is Dangerous to Your Health. Avoid second hand smoke Call the 24-hour hour crisis hotline for domestic abuse at Rita Mccullough PA-C Feb 21, 2017 10:03 am
[2017-02-21] MEDS: ATORVASTATIN 10 MG TAB PO SCH (10:15)
[2017-02-21] MEDS: INSULIN DETEMIR 100 UNITS/ML VIAL SQ SCH (10:15)
[2017-02-21] MEDS: amLODIPine BESYLATE 5 MG TAB PO SCH (10:16)
[2017-02-21] MEDS: ASPIRIN EC 81 MG TABEC PO SCH (10:16)
[2017-02-21] MEDS: CARVEDILOL 12.5 MG TAB PO SCH (10:17)
[2017-02-21] MEDS: FOLIC ACID 1 MG TAB PO SCH (10:17)
[2017-02-21] MEDS: LISINOPRIL 20 MG TAB PO SCH (10:17)
[2017-02-21] MEDS: PANTOPRAZOLE SOD 40 MG DELAYED RELEASE TAB PO SCH (10:18)
[2017-02-21] MEDS: SPIRONOLACTONE 25 MG TAB PO SCH (10:18)
[2017-02-21] MEDS: SODIUM CHLORIDE 0.9% FLUSH 10 ML FLUSH IV FLUSH SCH (10:18)
[2017-02-21] MEDS ORDERED: POTA-243 PO (10:55)
--- NOTE | 2017-02-21 11:52 | HHI.DS ---
Discharge Summary Admission Date Feb 18, 2017 at 22:41 Discharge Date: Feb 21, 2017 Admitting Diagnosis CHF exacerbation, cellulitis second toe right foot (1) CHF exacerbation ICD Code: I50.9 Diagnosis: Principal (2) Gastritis ICD Code: K29.70 Diagnosis: Principal (3) Chest pain ICD Code: R07.9 Diagnosis: Secondary Procedures 02/20/17 - EGD with gastritis, colonoscopy unremarkable Brief History - From Admission This is a 52 year old male patient with past medical history which includes: CHF reports last EF 16% wears LifeVest , HTN, DM, recent lower extremity DVT on Xarelto. Patient reports, "I'm filling up with fluids again." Reports he has gained 6 pounds over the past 2 days, C/O BLE edema, SOB and chest tightness/ pain. Reports cough worse when he talks a lot. Also reports he hasn't been eating secondary to feeling full. Reports being compliant with home medications. Denies fevers chills, N/V/D. Per RN patient reported abdominal pain and requesting narcotic pain medication. During evaluation abd exam benign. Patient c/o chest pain, unable to elaborate on detail regain location or type of pain, again asking for narcotic pain medication. CBC/BMP: 02/20/17 0722 02/20/17 0722 Significant Findings Laboratory Tests Test 02/18/17 02/18/17 02/19/17 02/20/17 17:45 21:15 11:40 07:22 Hemoglobin 11.6 GM/DL 10.8 GM/DL 10.7 GM/DL (13.0-17.0) (13.0-17.0) (13.0-17.0) Hematocrit 37.0 % 35.1 % 33.7 % (39.0-51.0) (39.0-51.0) (39.0-51.0) Mean Corpuscular Volume 75.5 FL 75.1 FL 75.0 FL (80.0-100.0) (80.0-100.0) (80.0-100.0) Mean Corpuscular Hemoglobin 23.6 PG 23.1 PG 23.9 PG (27.0-34.0) (27.0-34.0) (27.0-34.0) Mean Corpuscular Hemoglobin 31.2 % 30.7 % 31.9 % Concent (32.0-36.0) (32.0-36.0) (32.0-36.0) Red Cell Distribution Width 19.1 % 19.5 % 19.2 % (11.6-17.2) (11.6-17.2) (11.6-17.2) Eosinophils (%) (Auto) 5.9 % (0.0-4.0) 5.8 % (0.0-4.0) 7.5 % (0.0-4.0) Estimat Glomerular Filtration 79 ML/MIN (>89) 83 ML/MIN (>89) 76 ML/MIN (>89) Rate Random Glucose 187 MG/DL 267 MG/DL 107 MG/DL (74-106) (74-106) (74-106) Alkaline Phosphatase 129 U/L (45-117) B-Type Natriuretic Peptide 1243 PG/ML (0-100) Total Protein 8.4 GM/DL (6.4-8.2) Urine Protein GREATER THAN 600 mg/dL (NEG-TRACE) Urine Occult Blood SMALL (NEG) Platelet Morphology Comment ENLARGED (NORMAL) Calcium Level 8.4 MG/DL (8.5-10.1) Iron Level 22 MCG/DL (65-175) Percent Iron Saturation 5.3 % (20-50) Ferritin 13 NG/ML (26-388) Red Blood Count 4.49 MIL/MM3 (4.50-5.90) Eosinophils # (Auto) 0.5 TH/MM3 (0-0.4) Albumin 2.7 GM/DL (3.4-5.0) PE at Discharge GENERAL: Well-nourished, well-developed middle aged male patient in [facility]. SKIN: Warm and dry. No rash. HEENT: Normocephalic. Atraumatic. Pupils equal and round. Mucous membranes pink and moist. NECK: Supple. Trachea midline. CARDIOVASCULAR: Regular rate and rhythm. S1, S2 noted. No murmur appreciated. Life Vest in place. RESPIRATORY: No accessory muscle use. Clear to auscultation. Breath sounds equal bilaterally. GASTROINTESTINAL: Abdomen soft, non-tender, nondistended. Normoactive bowel sounds x4. MUSCULOSKELETAL: No obvious deformities. Extremities without clubbing, cyanosis , or edema. NEUROLOGICAL: Awake and alert. No obvious cranial nerve deficits. Motor grossly within normal limits. Normal speech. PSYCHIATRIC: Appropriate mood and affect; insight and judgment normal. Hospital Course 52 year old male patient with past medical history which includes: CHF reports last EF 16% wears LifeVest , HTN, DM, recent lower extremity DVT on Xarelto. Patient reports, "I'm filling up with fluids again." Reports he has gained 6 pounds over the past 2 days, C/O BLE edema, SOB and chest tightness/pain. Acute on chronic systolic CHF exacerbation: BNP 1243. CXR images reviewed, shows no acute findings. +weight gain and edema. It appears patient was not taking prescribed dose of Lasix, previously discharged on lasix 40mg po bid however patient believes he is only taking 20mg po bid prior to arrival. -S/p Lasix 40 mg IV push BID, now change to po lasix 40mg bid -continue LifeVest, patient has plan to f/up with template layout worker in [place] 3rd week of March for AICD (defibrillator placement delayed secondary to osteomyelitis, now resolved) -Continue lisinopril, Coreg and spironolactone -patient diuresed well, O2 sat stable on room air, discharged on lasix 40mg po bid Chest Pain: likely secondary to CHF as above. -ACS ruled out with negative serial cardiac enzymes x4 and EKG without acute ischemic changes -chest pain resolved Epigastric Pain: Lipase and LFTs wnl. Pains occur after meals with associated nausea/bloating/early satiety. Possible diabetic gastroparesis, however rule out PUD. -Consulted gastroenterology -EGD/colonoscopy only showed gastritis -continue protonix -advanced diet, patient tolerating well, no further epigastric pains DM: chronic, HgbA1c 8.3 on 10/21/16 Monitor Accu-cheks and cover with medium dose SSI Restart long acting insulin Levemir 10u sq bid X-ray of the right foot: No evidence of osteomyelitis per report. hyperlipemia: Chronic, continue Lipitor history of recurrent DVT: chronic, continue Xarelto Question malingering for pain medication: Per RN patient reported abdominal pain and requesting narcotic pain medication. During evaluation abd exam benign. Patient c/o chest pain, unable to elaborate in detail regarding location or type of pain, again asking for narcotic pain medication. Written by Rita Mccullough, acting as scribe for Dr. Newman on 02/21/17 at 10: 50 Pt Condition on Discharge: Stable Discharge Disposition: Discharge Home Discharge Time: > 30 minutes Discharge Instructions DIET: Follow Instructions for: Heart Healthy Diet, Diabetic Diet Activities you can perform: Regular-No Restrictions Follow up Referrals: Cardiology PCP Follow-up New Medications: Potassium Chloride ER (Klor-Con 10) 10 Meq Tab 10 MEQ PO BID Electrolyte Replacement #60 Ref 0 TAB Continued Medications: Amlodipine (Norvasc) 5 Mg Tab 2.5 MG PO DAILY Blood Pressure Management #30 TAB Aspirin (Aspirin) 81 Mg Tabdr 81 MG PO DAILY TAB Atorvastatin (Lipitor) 10 Mg Tab 10 MG PO DAILY Cholesterol Management #30 TAB Carvedilol (Coreg) 12.5 Mg Tab 25 MG PO Q12HR Blood Pressure Management #60 TAB Folic Acid (Folate) 1 Mg Tab 1 MG PO DAILY Nutritional Supplement Ref 0 TAB Furosemide (Lasix) 40 Mg Tab 40 MG PO BID CHF #60 Ref 0 TAB (This prescription has been renewed) Insulin Detemir Inj (Levemir Inj) 1,000 unit/ 10 ML Vial 20 UNITS SQ BID dm #60 INJECTION Insulin Glargine Inj (Lantus Inj) 100 Unit/Ml Inj 23 UNIT SQ BID Insulin Lispro (Human) Inj (Humalog Inj) 1,000 Unit/10 Ml Vial SQ ACHS PER SLIDING SCALE #1 Ref 0 VIAL Lisinopril (Lisinopril) 20 Mg Tab 40 MG PO DAILY Blood Pressure Management #30 TAB Pantoprazole (Pantoprazole) 40 Mg Tab 40 MG PO DAILY Reflux #30 Ref 0 TAB (This prescription has been renewed) Rivaroxaban (Xarelto) 20 Mg Tab 20 MG PO DAILY@1600 Blood Clot Prevention Ref 0 TAB Sitagliptin-Metformin (Janumet) 50-500 Mg Tab 1 TAB PO BID Blood Sugar Management #60 Ref 0 TAB Spironolactone (Aldactone) 25 Mg Tab 25 MG PO DAILY #30 Ref 0 TAB Additional Information This note was transcribed by scribe []. I, Dr. Jackie Newman personally performed the history, physical exam, and medical decision making; and confirmed the accuracy of the information in the transcribed note. Authenticated by Dr. Jackie Newman on 02/22/17 at 19:06. Rita Mccullough PA-C Feb 21, 2017 11:52 Jackie Newman MD Feb 22, 2017 19:06
[2017-02-21 12:18] VITALS: BP 116/65; PULSE 61; RESP 20; TEMP 98.5; O2SAT 100
--- NOTE | 2017-02-21 13:07 | PD.CARD.PN ---
Subjective Subjective Remarks Doing well No chest pain, no shortness of breath Objective Medications Current Medications Medications (Trade) Dose Ordered Sig/[place] Route Start Time Stop Time Status Last Admin (NS Flush) 2 ml UNSCH PRN IV FLUSH 02/18/17 22:45 (NS Flush) 2 ml BID IV FLUSH 02/19/17 09:00 02/21/17 10:18 (Narcan Inj) 0.4 mg UNSCH PRN IV 02/18/17 22:45 (D50w (Vial) Inj) 25 ml UNSCH PRN IV PUSH 02/18/17 22:45 (Glucagon Inj) 1 mg UNSCH PRN OTHER 02/18/17 22:45 (Nitrostat Sl) 0.4 mg Q5M PRN SL 02/19/17 00:30 (Norvasc) 2.5 mg DAILY PO 02/19/17 09:00 02/21/17 10:16 (Ecotrin Ec) 81 mg DAILY PO 02/19/17 09:00 02/21/17 10:16 (Lipitor) 10 mg DAILY PO 02/19/17 09:00 02/21/17 10:15 (Coreg) 25 mg Q12HR PO 02/19/17 09:00 02/21/17 10:17 (Folate) 1 mg DAILY PO 02/19/17 09:00 02/21/17 10:17 (Prinivil) 40 mg DAILY PO 02/19/17 09:00 02/21/17 10:17 (Protonix) 40 mg DAILY PO 02/19/17 09:00 02/21/17 10:18 (Aldactone) 25 mg DAILY PO 02/19/17 09:00 02/21/17 10:18 (Pill Splitter) 1 ea UNSCH PRN OTHER 02/19/17 00:45 (Levemir Inj) 10 units Q12HR SQ 02/19/17 21:00 02/21/17 10:15 (Xarelto) 20 mg DAILY@1700 PO 02/19/17 17:33 02/20/17 17:49 (Lasix) 40 mg BID@09,18 PO 02/21/17 18:00 Vital Signs / I&O Vital Signs Date Time Temp Pulse Resp B/P Pulse Ox O2 Delivery O2 Flow Rate FiO2 02/21/17 12:18 98.5 61 20 116/65 100 02/21/17 08:00 98.5 61 20 118/72 97 02/21/17 04:03 98.0 61 20 106/59 95 02/21/17 00:05 98.0 58 18 111/67 98 02/20/17 19:51 98.6 67 20 112/64 99 02/20/17 16:15 98.5 59 20 112/64 98 I/O 02/20/17 02/20/17 02/20/17 02/21/17 02/21/17 02/21/17 07:00 15:00 23:00 07:00 15:00 23:00 Intake Total 200 ml 1560 ml Balance 200 ml 1560 ml Intake Oral 1560 ml IV Total 100 ml Other 100 ml # Voids 14 Physical Exam GENERAL: NAD, AAOx3 SKIN: Warm and dry. HEAD: Atraumatic. Normocephalic. EYES: Pupils equal and round. No scleral icterus. No injection or drainage. ENT: No nasal bleeding or discharge. Mucous membranes pink and moist. NECK: Trachea midline. No JVD. CARDIOVASCULAR: Regular rate and rhythm. RESPIRATORY: No accessory muscle use. Clear to auscultation. Breath sounds equal bilaterally. GASTROINTESTINAL: Abdomen soft, non-tender, nondistended. Hepatic and splenic margins not palpable. MUSCULOSKELETAL: Extremities without clubbing, cyanosis, or edema. No obvious deformities. NEUROLOGICAL: Awake and alert. No obvious cranial nerve deficits. Motor grossly within normal limits. Five out of 5 muscle strength in the arms and legs. Normal speech. PSYCHIATRIC: Appropriate mood and affect; insight and judgment normal. Assessment and Plan Problem List: (1) Cardiomyopathy (2) CHF (congestive heart failure) (3) CHF exacerbation (4) DM (diabetes mellitus) Assessment and Plan 1) Edema/SOB decreased 2) Stable for discharge today 3) Will watch weights at home, and discuss with his corporate responsibility officer in [place] if there is a need for increasing his diuretic 4) Will follow up with his corporate responsibility officer for consideration of AICD, currently continue with [employer] Problem Qualifiers (1) CHF exacerbation: Qualified Code: I50.9 - Acute on chronic congestive heart failure, unspecified congestive heart failure type Santana Jimenez DO Feb 21, 2017 13:07
[2017-02-21] MEDS ORDERED: FUROSEMIDE 40 MG TAB PO SCH (18:00)
== END 2017-02-21 15:46 | disposition home or self-care (01) ==
LOC: NEPE 16:34 → NEDA 22:41 → INTOOBSV 22:41 → NEPHCDU 02-19 01:06
PROVIDERS: ADMIT Family Medicine; ATTEND Family Medicine
DX: K29.00 Acute gastritis without bleeding (principal); D50.9 Iron deficiency anemia, unspecified; I11.0 Hypertensive heart disease with heart failure; I50.23 Acute on chronic systolic (congestive) heart failure; E11.42 Type 2 diabetes mellitus with diabetic polyneuropathy; E11.51 Type 2 diabetes mellitus with diabetic peripheral angiopathy without gangrene; R07.89 Other chest pain; E78.5 Hyperlipidemia, unspecified; I42.9 Cardiomyopathy, unspecified; F41.9 Anxiety disorder, unspecified; F32.9 Major depressive disorder, single episode, unspecified; I25.10 Atherosclerotic heart disease of native coronary artery without angina pectoris; F17.210 Nicotine dependence, cigarettes, uncomplicated; Z86.718 Personal history of other venous thrombosis and embolism; Z79.01 Long term (current) use of anticoagulants; Z79.82 Long term (current) use of aspirin; Z79.4 Long term (current) use of insulin; Z88.1 Allergy status to other antibiotic agents; Z88.5 Allergy status to narcotic agent; Z88.8 Allergy status to other drugs, medicaments and biological substances
CPT/HCPCS: 00810; 43239; 45378; 71010; 73630; 80048; 80053; 81001; 82550; 82552; 82728; 82948; 83540; 83550; 83690; 83735; 83880; 84100; 84484; 85025; 85610; 85730; 88305; 88312; 93005; 96374; 97163; 99285; G0378; G8987; G8988; J1815; J1940; J2270; J3010

== ENCOUNTER 2017-10-13 11:29 | Emergency (ER) | payer OTHER ==
[~2017-10-13] VITALS: Ht 172.7 cm; Wt 71.0 kg
[~2017-10-13 11:29] MED LIST changes: -ALPR.25 PO; -GABA300C5 PO; +KLOR10TA PO; -THIA100T PO
[2017-10-13 11:30] VITALS: BP 153/91; PULSE 88; RESP 16; TEMP 98.3; O2SAT 97
[2017-10-13] MEDS ORDERED: FOLI800T PO (11:45)
--- NOTE | 2017-10-13 12:04 | PD ---
HPI Chief Complaint: Pain: Acute or Chronic Time Seen by Provider: 11:41 Travel History International Travel<30 days: No Contact w/Intl Traveler<30days: No Traveled to known affect area: No History of Present Illness HPI 52-year-old man, extensive medical history, presents to the emergency department complaining of infection to his right third toe. Patient has a history of type 1 diabetes, peripheral vascular disease, severe ischemic cardiomyopathy, and osteomyelitis. He's had his distal foot on the left and multiple toes on the right previously amputated for infection. He states that the right toe started getting irritated couple days ago. He normally has severe neuropathy and cannot feel the toes at all. Over the past 2 days she's had worsening pain and throbbing in the toe. No fevers. No other complaints. Gets most of his care in [place] where he is from, even now. Has not seen a drop wire aliner here since previous amputations a couple years ago. History Past Medical History Narrative Medical Type 1 diabetes Ischemic cardiomyopathy, EF of about 15% Hypertension and hyperlipidemia COPD History of osteomyelitis Records indicate a history of low lower extremity DVT, on Xarelto. Patient denies, states she was started on Xarelto because of cardiomyopathy. Review of records does not show any positive lower extremity ultrasounds. Peripheral vascular disease Tetanus Vaccination: < 5 Years Influenza Vaccination: Yes Social History Alcohol Use: Yes (OCCASIONALLY) Tobacco Use: Yes (1 pack per day) Allergies-Medications (Allergen,Severity, Reaction): Coded Allergies: oxycodone (Verified Allergy, Severe, Rash, 10/13/17) vancomycin (Verified Allergy, Severe, Rash, 10/13/17) acetaminophen (Verified Adverse Reaction, Intermediate, Rash, 10/13/17) *MDRO Multi-Drug Resistant Organism (Verified Adverse Reaction, Unknown, 10/13/17) MRSA (foot wound) - 09/2015 & 09/26/16 Reported Meds & Prescriptions Reported Meds & Active Scripts Active Klor-Con 10 (Potassium Chloride) 10 Meq Tab 10 Meq PO BID Lasix (Furosemide) 40 Mg Tab 40 Mg PO BID Pantoprazole (Pantoprazole Sodium) 40 Mg Tab 40 Mg PO DAILY Lisinopril 20 Mg Tab 40 Mg PO DAILY Coreg (Carvedilol) 12.5 Mg Tab 25 Mg PO Q12HR Lipitor (Atorvastatin Calcium) 10 Mg Tab 10 Mg PO DAILY Norvasc (Amlodipine Besylate) 5 Mg Tab 2.5 Mg PO DAILY Levemir Inj (Insulin Detemir) 1,000 unit/ 10 ML Vial 20 Units SQ BID Reported Folic Acid 0.8 Mg Tab 1,000 Mcg PO DAILY Xarelto (Rivaroxaban) 20 Mg Tab 20 Mg PO DAILY@1600 Aldactone (Spironolactone) 25 Mg Tab 25 Mg PO DAILY Janumet (Sitagliptin-Metformin) 50-500 Mg Tab 1 Tab PO BID Humalog Inj (Insulin Human Lispro) 1,000 Unit/10 Ml Vial 20 Unit SQ BID Review of Systems Except as stated in HPI: all other systems reviewed are Neg Physical Exam Narrative GENERAL: 52-year-old man, no acute distress. SKIN: Focused skin assessment warm/dry. HEAD: Atraumatic. Normocephalic. NECK: Trachea midline. No JVD. CARDIOVASCULAR: Regular rate and rhythm. No murmur appreciated. RESPIRATORY: No accessory muscle use. Clear to auscultation. Breath sounds equal bilaterally. GASTROINTESTINAL: Abdomen soft, non-tender, nondistended. Hepatic and splenic margins not palpable. MUSCULOSKELETAL: No obvious deformities. Status post left midfoot indication, multiple toes resected from the right foot. The right apparently third digit, is the performed, with some ecchymosis and bruising of ulceration on the top of the IP joint. There is a lot of pain and tenderness. There is no obvious erythema redness or warmth. There is a little bit of drainage. DP pulses are easily palpable both feet. There is some stigmata of peripheral laceration disease with her loss and shiny skin bilaterally. There is no significant edema at this time. NEUROLOGICAL: Awake and alert. No obvious cranial nerve deficits. Motor grossly within normal limits. Normal speech. PSYCHIATRIC: Appropriate mood and affect; insight and judgment normal. Data Data Last Documented VS Vital Signs Date Time Temp Pulse Resp B/P (MAP) Pulse Ox O2 Delivery O2 Flow Rate FiO2 10/13/17 11:46 94 16 10/13/17 11:30 98.3 153/91 (111) 97 Orders Orders Toe (Min 2vws) (10/13/17 ) Complete Blood Count With Diff (10/13/17 11:55) Comprehensive Metabolic Panel (10/13/17 11:55) Westergren Sedimentation Rate (10/13/17 11:55) C-Reactive Protein (Crp) (10/13/17 11:55) Toe (Min 2vws) (10/13/17 ) Tramadol (Ultram) (10/13/17 13:15) Labs Laboratory Tests Test 10/13/17 12:00 White Blood Count 7.2 TH/MM3 Red Blood Count 4.96 MIL/MM3 Hemoglobin 13.5 GM/DL Hematocrit 41.9 % Mean Corpuscular Volume 84.5 FL Mean Corpuscular Hemoglobin 27.2 PG Mean Corpuscular Hemoglobin Concent 32.2 % Red Cell Distribution Width 16.9 % Platelet Count 205 TH/MM3 Mean Platelet Volume 8.9 FL Neutrophils (%) (Auto) 61.7 % Lymphocytes (%) (Auto) 26.2 % Monocytes (%) (Auto) 6.6 % Eosinophils (%) (Auto) 4.8 % Basophils (%) (Auto) 0.7 % Neutrophils # (Auto) 4.4 TH/MM3 Lymphocytes # (Auto) 1.9 TH/MM3 Monocytes # (Auto) 0.5 TH/MM3 Eosinophils # (Auto) 0.3 TH/MM3 Basophils # (Auto) 0.1 TH/MM3 CBC Comment DIFF FINAL Differential Comment Erythrocyte Sedimentation Rate 28 mm/hr Blood Urea Nitrogen 14 MG/DL Creatinine 1.00 MG/DL Random Glucose 125 MG/DL Total Protein 8.3 GM/DL Albumin 3.2 GM/DL Calcium Level 8.8 MG/DL Alkaline Phosphatase 118 U/L Aspartate Amino Transf (AST/SGOT) 33 U/L Alanine Aminotransferase (ALT/SGPT) 33 U/L Total Bilirubin 0.7 MG/DL Sodium Level 138 MEQ/L Potassium Level 4.8 MEQ/L Chloride Level 106 MEQ/L Carbon Dioxide Level 27.5 MEQ/L Anion Gap 5 MEQ/L Estimat Glomerular Filtration Rate 78 ML/MIN C-Reactive Protein LESS THAN 0.29 MG/DL [facility] Medical Decision Making Medical Screen Exam Complete: Yes Emergency Medical Condition: Yes Interpretation(s) LABS: CBC is unremarkable. Sedimentation rate 28 CMP is unremarkable CRP less than 0.29 X-ray: Soft tissue swelling without bony changes. Differential Diagnosis Osteomyelitis, occult trauma, cellulitis, other Narrative Course Medical decision-making INITIAL: 51-year-old male presents emergency Department with to 3 days of worsening right toe pain and color changes, history of type 1 diabetes, ischemic cardiac myopathy, and osteomyelitis. Possible occult trauma or infection. We'll check x-rays, labs, reassess. Diagnosis Primary Impression: Diabetic foot infection Additional Instructions: Take antibiotics as prescribed. Follow-up with podiatry for further evaluation. Med/Other Pt SpecificInfo: Prescription(s) given Scripts Clindamycin (Clindamycin) 300 Mg Cap 300 MG PO TID for Infection for 10 Days, #21 CAP 0 Refills Prov: Mp Aly MD 10/13/17 Disposition: 01 DISCHARGE HOME Condition: Stable Mp Aly MD Oct 13, 2017 12:03
[2017-10-13 12:19] LABS: AUTOMATED NEUTROPHIL # 4.4 TH/MM3 (1.8-7.7); BASOPHIL # 0.1 TH/MM3 (0-0.2); BASOPHIL % 0.7 % (0.0-2.0); EOSINOPHIL # 0.3 TH/MM3 (0-0.4); EOSINOPHIL % 4.8 % (0.0-4.0); HEMATOCRIT 41.9 % (39.0-51.0); HEMO FLAGS DIFF FINAL; LYMPH % 26.2 % (9.0-44.0); LYMPHOCYTE # 1.9 TH/MM3 (1.0-4.8); MEAN CELL VOLUME 84.5 FL (80.0-100.0); MEAN CORPUSCULAR HEMOGLOBIN 27.2 PG (27.0-34.0); MEAN CORPUSCULAR HGB CONC 32.2 % (32.0-36.0); MONO % 6.6 % (0.0-8.0); NEUT % 61.7 % (16.0-70.0); PLATELET COUNT 205 TH/MM3 (150-450); RED BLOOD COUNT 4.96 MIL/MM3 (4.50-5.90); RED CELL DISTRIBUTION WIDTH 16.9 % (11.6-17.2); WHITE BLOOD COUNT 7.2 TH/MM3 (4.0-11.0)
[2017-10-13 12:34] LABS: ALT (GPT) 33 U/L (12-78); ANION GAP 5 MEQ/L (5-15); AST (GOT) 33 U/L (15-37); BICARBONATE 27.5 MEQ/L (21.0-32.0); BLOOD UREA NITROGEN 14 MG/DL (7-18); CHLORIDE 106 MEQ/L (98-107); GLOMERULAR FILTRATION RATE 78 ML/MIN (>89); POTASSIUM 4.8 MEQ/L (3.5-5.1); SODIUM (NA) 138 MEQ/L (136-145)
[2017-10-13 12:41] LABS: ALKALINE PHOSPHATASE 118 U/L (45-117); TOTAL BILIRUBIN ADULT 0.7 MG/DL (0.2-1.0)
--- NOTE | 2017-10-13 12:50 | RADRPT ---
EXAM DATE/TIME: 10/13/2017 12:20 [facility] COMPARISON: No previous studies available for comparison. INDICATIONS : Right foot, second digit pain and swelling. MEDICAL HISTORY : Diabetes mellitus type I. SURGICAL HISTORY : Multiple toe amputations. ENCOUNTER: Initial ACUITY: 1 day PAIN SCORE: 8/10 LOCATION: Right foot, second digit. FINDINGS: Examination of the second digit of the right foot demonstrates no evidence of fracture or dislocation . No radiopaque foreign bodies are seen. Soft tissue swelling second digit. Amputation third digit a nd fourth digit. Vascular calcifications. CONCLUSION: Soft tissue swelling second digit. No bony destructive changes. Fransisco Jain MD on October 13, 2017 at 12:44 Board Certified Radiologist. This report was verified electronically.
[2017-10-13] MEDS ORDERED: traMADol HCL 50 MG TAB PO ONE (13:15)
[2017-10-13] MEDS ORDERED: CLIN300C5 PO (13:32)
--- NOTE | 2017-10-13 13:36 | PD ---
Data Data Last Documented VS Vital Signs Date Time Temp Pulse Resp B/P (MAP) Pulse Ox O2 Delivery O2 Flow Rate FiO2 10/13/17 11:46 94 16 10/13/17 11:30 98.3 153/91 (111) 97 Orders Orders Toe (Min 2vws) (10/13/17 ) Complete Blood Count With Diff (10/13/17 11:55) Comprehensive Metabolic Panel (10/13/17 11:55) Westergren Sedimentation Rate (10/13/17 11:55) C-Reactive Protein (Crp) (10/13/17 11:55) Toe (Min 2vws) (10/13/17 ) Tramadol (Ultram) (10/13/17 13:15) Ed Discharge Order (10/13/17 13:32) Labs Laboratory Tests Test 10/13/17 12:00 White Blood Count 7.2 TH/MM3 Red Blood Count 4.96 MIL/MM3 Hemoglobin 13.5 GM/DL Hematocrit 41.9 % Mean Corpuscular Volume 84.5 FL Mean Corpuscular Hemoglobin 27.2 PG Mean Corpuscular Hemoglobin Concent 32.2 % Red Cell Distribution Width 16.9 % Platelet Count 205 TH/MM3 Mean Platelet Volume 8.9 FL Neutrophils (%) (Auto) 61.7 % Lymphocytes (%) (Auto) 26.2 % Monocytes (%) (Auto) 6.6 % Eosinophils (%) (Auto) 4.8 % Basophils (%) (Auto) 0.7 % Neutrophils # (Auto) 4.4 TH/MM3 Lymphocytes # (Auto) 1.9 TH/MM3 Monocytes # (Auto) 0.5 TH/MM3 Eosinophils # (Auto) 0.3 TH/MM3 Basophils # (Auto) 0.1 TH/MM3 CBC Comment DIFF FINAL Differential Comment Erythrocyte Sedimentation Rate 28 mm/hr Blood Urea Nitrogen 14 MG/DL Creatinine 1.00 MG/DL Random Glucose 125 MG/DL Total Protein 8.3 GM/DL Albumin 3.2 GM/DL Calcium Level 8.8 MG/DL Alkaline Phosphatase 118 U/L Aspartate Amino Transf (AST/SGOT) 33 U/L Alanine Aminotransferase (ALT/SGPT) 33 U/L Total Bilirubin 0.7 MG/DL Sodium Level 138 MEQ/L Potassium Level 4.8 MEQ/L Chloride Level 106 MEQ/L Carbon Dioxide Level 27.5 MEQ/L Anion Gap 5 MEQ/L Estimat Glomerular Filtration Rate 78 ML/MIN C-Reactive Protein LESS THAN 0.29 MG/DL MDM Supervised Visit with ARNEL: No Diagnosis Primary Impression: Diabetic foot infection Referrals: Fransisco Smith DPM 1 week Additional Instruction: Take antibiotics as prescribed. Follow-up with podiatry for further evaluation. Med/Other Pt SpecificInfo: Prescription(s) given Scripts Clindamycin (Clindamycin) 300 Mg Cap 300 MG PO TID for Infection for 10 Days, #21 CAP 0 Refills Prov: Mp Aly MD 10/13/17 Disposition: 01 DISCHARGE HOME Condition: Stable Mp Aly MD Oct 13, 2017 13:36
[2017-10-13 14:09] VITALS: BP 140/78; RESP 15; TEMP 97.8
== END 2017-10-13 14:09 | disposition home or self-care (01) ==
LOC: NEPE 11:29
DX: L08.9 Local infection of the skin and subcutaneous tissue, unspecified (principal); E11.628 Type 2 diabetes mellitus with other skin complications; E10.628 Type 1 diabetes mellitus with other skin complications; M86.9 Osteomyelitis, unspecified; I73.9 Peripheral vascular disease, unspecified; F17.200 Nicotine dependence, unspecified, uncomplicated; Z79.4 Long term (current) use of insulin; Z79.899 Other long term (current) drug therapy; Z88.5 Allergy status to narcotic agent
CPT/HCPCS: 73660; 80053; 85025; 85652; 86140; 99284

== ENCOUNTER 2017-10-17 18:02 | Emergency (ER) | payer OTHER ==
[~2017-10-17 18:02] MED LIST changes: -ASPI1TAB69 PO; +CLIN300C5 PO; -FOLI1TAB4 PO; +FOLI800T PO; -LANTUS2P SQ
[2017-10-17 18:03] VITALS: BP 142/87; PULSE 95; RESP 16; TEMP 98.8; O2SAT 98
--- NOTE | 2017-10-17 19:18 | PD ---
HPI Chief Complaint: Injury Time Seen by Provider: 19:18 Travel History International Travel<30 days: No Contact w/Intl Traveler<30days: No Traveled to known affect area: No History of Present Illness HPI 52-year-old male came to the emergency room with history of right middle and fourth toe diabetic wound that is not healing. Patient was in the emergency room on 13 October and was discharged home on clindamycin after the workup. Patient says that is not getting better and the pain is getting worse. He has had toe amputation on that same foot last here and has had forefoot amputation couple years ago. Patient lives in [place] and gets most of his medical care there but has been in [facility] in the past. In fact his amputations were done in this hospital couple years ago by Dr. Thomas. Patient says that he has not seen a equipment maintenance tech. He is been taking care of his blood sugar at home. Lately it has been running high. Vital signs were otherwise stable. [facility] Past Medical History Narrative Medical List of his past medical, surgical, social and family history is reviewed from the nursing note. Hx Anticoagulant Therapy: Yes Asthma: No Blood Disorders: No Anxiety: Yes Depression: Yes Heart Rhythm Problems: Yes (PT WEARS A LIFEVEST) Cancer: No Cardiovascular Problems: Yes High Cholesterol: Yes Chest Pain: Yes (PRIOR TO THIS ADMIT) Congestive Heart Failure: Yes COPD: No Coronary Artery Disease: Yes Diabetes: Yes Diminished Hearing: No Deep Vein Thrombosis: Yes Endocrine: Yes GERD: Yes Genitourinary: No Hypertension: Yes Immune Disorder: No Implanted Vascular Access Dvce: Yes Neurologic: No Psychiatric: Yes Reproductive: No Respiratory: Yes Immunizations Current: Yes Sleep Apnea: No Thyroid Disease: No Ulcer: No (UTO) Past Surgical History Body Medical Devices: PINS/RODS LEFT ARM. PT WEARS AN EXTERNAL LIFEVEST Thoracic Surgery: Yes (SPINAL SURGERY) Other Surgery: Yes (partial amputation to the left foot, mid metatarsals. Right fourth toe amp) Social History Alcohol Use: Yes (OCCASIONALLY) Tobacco Use: Yes (1 pack per day) Substance Use: Yes (MARIJUANA) Allergies-Medications (Allergen,Severity, Reaction): Coded Allergies: oxycodone (Verified Allergy, Severe, Rash, 10/17/17) vancomycin (Verified Allergy, Severe, Rash, 10/17/17) acetaminophen (Verified Adverse Reaction, Intermediate, Rash, 10/17/17) *MDRO Multi-Drug Resistant Organism (Verified Adverse Reaction, Unknown, 10/17/17) MRSA (foot wound) - 09/2015 & 09/26/16 Comments List of his allergies reviewed from the nursing note. Reported Meds & Prescriptions Reported Meds & Active Scripts Active Clindamycin (Clindamycin HCl) 300 Mg Cap 300 Mg PO TID 10 Days Klor-Con 10 (Potassium Chloride) 10 Meq Tab 10 Meq PO BID Lasix (Furosemide) 40 Mg Tab 40 Mg PO BID Pantoprazole (Pantoprazole Sodium) 40 Mg Tab 40 Mg PO DAILY Lisinopril 20 Mg Tab 40 Mg PO DAILY Coreg (Carvedilol) 12.5 Mg Tab 25 Mg PO Q12HR Lipitor (Atorvastatin Calcium) 10 Mg Tab 10 Mg PO DAILY Norvasc (Amlodipine Besylate) 5 Mg Tab 2.5 Mg PO DAILY Reported Aspirin 81 Mg Chew 81 Mg CHEW DAILY Lantus Inj (Insulin Glargine) 1,000 Unit/10 Ml Vial 28 Units SQ BID Folic Acid 0.8 Mg Tab 1,000 Mcg PO DAILY Xarelto (Rivaroxaban) 20 Mg Tab 20 Mg PO DAILY@1600 Narrative Medication List of home medications reviewed from the nursing note. Review of Systems Except as stated in HPI: all other systems reviewed are Neg Physical Exam Narrative GENERAL: Awake, alert, mild distress SKIN: Focused skin assessment warm/dry. HEAD: Atraumatic. Normocephalic. EYES: Pupils equal and round. No scleral icterus. No injection or drainage. ENT: No nasal bleeding or discharge. Mucous membranes pink and moist. NECK: Trachea midline. No JVD. CARDIOVASCULAR: Regular rate and rhythm. No murmur appreciated. RESPIRATORY: No accessory muscle use. Clear to auscultation. Breath sounds equal bilaterally. GASTROINTESTINAL: Abdomen soft, non-tender, nondistended. Hepatic and splenic margins not palpable. MUSCULOSKELETAL: No obvious deformities. No clubbing. No cyanosis. No edema. Left forefoot amputation, right middle and little toe amputation. The second and fourth toe dorsal surface of the PIP joint has 2 ulcers that appear darker in color, no foul smell discharge, no surrounding erythema. Distal pulses intact NEUROLOGICAL: Awake and alert. No obvious cranial nerve deficits. Motor grossly within normal limits. Normal speech. PSYCHIATRIC: Appropriate mood and affect; insight and judgment normal. Data Data Last Documented VS Orders Orders Basic Metabolic Panel (Bmp) (10/17/17 19:45) Complete Blood Count With Diff (10/17/17 19:45) Blood Culture (10/17/17 19:45) Westergren Sedimentation Rate (10/17/17 19:45) Morphine Inj (Morphine Inj) (10/17/17 19:45) Sodium Chlor 0.9% 1000 Ml Inj (Ns 1000 M (10/17/17 19:45) Beta Hydroxybutyrate (Acetone) (10/17/17 19:45) Foot, Complete (Dwy9tia) (10/17/17 ) Sulfamet-Trimeth Ds 800-160 Mg (Bactrim (10/17/17 21:30) Cephalexin (Keflex) (10/17/17 21:30) Ed Discharge Order (10/17/17 21:53) Mandatory Outpatient Referral (10/17/17 22:12) Labs Laboratory Tests Test 10/17/17 19:57 White Blood Count 7.2 TH/MM3 Red Blood Count 4.78 MIL/MM3 Hemoglobin 13.0 GM/DL Hematocrit 40.0 % Mean Corpuscular Volume 83.6 FL Mean Corpuscular Hemoglobin 27.3 PG Mean Corpuscular Hemoglobin Concent 32.6 % Red Cell Distribution Width 16.9 % Platelet Count 204 TH/MM3 Mean Platelet Volume 8.9 FL Neutrophils (%) (Auto) 57.0 % Lymphocytes (%) (Auto) 29.8 % Monocytes (%) (Auto) 5.8 % Eosinophils (%) (Auto) 6.6 % Basophils (%) (Auto) 0.8 % Neutrophils # (Auto) 4.1 TH/MM3 Lymphocytes # (Auto) 2.2 TH/MM3 Monocytes # (Auto) 0.4 TH/MM3 Eosinophils # (Auto) 0.5 TH/MM3 Basophils # (Auto) 0.1 TH/MM3 CBC Comment DIFF FINAL Differential Comment Erythrocyte Sedimentation Rate 35 mm/hr Blood Urea Nitrogen 10 MG/DL Creatinine 0.90 MG/DL Random Glucose 131 MG/DL Calcium Level 8.7 MG/DL Sodium Level 136 MEQ/L Potassium Level 4.1 MEQ/L Chloride Level 104 MEQ/L Carbon Dioxide Level 23.3 MEQ/L Anion Gap 9 MEQ/L Estimat Glomerular Filtration Rate 88 ML/MIN B-Hydroxybutyrate 0.28 MMOL/L MDM Medical Decision Making Medical Screen Exam Complete: Yes Emergency Medical Condition: Yes Medical Record Reviewed: Yes Differential Diagnosis Osteomyelitis, diabetic foot infection Narrative Course 9:42 PM patient has been on the antibiotic for 4 days. Blood test results are back and all his test results are within acceptable limit except for his sedimentation rate that's minimally elevated. X-ray of the foot did not indicate any osteomyelitis. I'm waiting for the equipment maintenance tech to call back so that I can discuss the case with him. Meanwhile patient was medicated for pain. I've ordered by mouth Bactrim and Keflex currently. 9:58 PM I be discussed the case with Dr. Anderson from podiatry. As per her there is no criteria to admit this patient and I agree. Patient has not finished a course of his antibiotic. I the offered if she would follow-up with the patient in her office and she was agreeable to that. I put in a mandatory consult for her. Given that I'm comfortable discharging this patient home. He will have a mandatory consult ordered with her. Procedures EKG Prior to Arrival: No Diagnosis Primary Impression: Diabetic foot infection Referrals: Margy Anderson DPM 2 days Additional Instructions: Please return to the ER if the condition worsens or any other new concerns. Otherwise take the medication as per the prescription direction to finish the course of the clindamycin. Please call the equipment maintenance tech was name and number been provided to you. Disposition: 01 DISCHARGE HOME Condition: Stable Paramjit Auguste MD Oct 17, 2017 19:18
[2017-10-17] MEDS ORDERED: ASPI-516 CHEW (19:30)
[2017-10-17] MEDS ORDERED: LANTUS2P SQ (19:30)
[2017-10-17 19:31] VITALS: BP 154/95; PULSE 89; RESP 20; O2SAT 99
[2017-10-17] MEDS ORDERED: MORPHINE SULFATE 4 MG/ML INJ IV PUSH ONE (19:45)
[2017-10-17] MEDS ORDERED: SODIUM CHLOR 0.9% 1000 ML INJ 1,000 ML IV ONE (19:45)
[2017-10-17 20:21] LABS: AUTOMATED NEUTROPHIL # 4.1 TH/MM3 (1.8-7.7); BASOPHIL # 0.1 TH/MM3 (0-0.2); BASOPHIL % 0.8 % (0.0-2.0); EOSINOPHIL # 0.5 TH/MM3 (0-0.4); EOSINOPHIL % 6.6 % (0.0-4.0); HEMO FLAGS DIFF FINAL; LYMPH % 29.8 % (9.0-44.0); LYMPHOCYTE # 2.2 TH/MM3 (1.0-4.8); MEAN CELL VOLUME 83.6 FL (80.0-100.0); MEAN CORPUSCULAR HEMOGLOBIN 27.3 PG (27.0-34.0); MEAN CORPUSCULAR HGB CONC 32.6 % (32.0-36.0); MONO % 5.8 % (0.0-8.0); PLATELET COUNT 204 TH/MM3 (150-450); RED BLOOD COUNT 4.78 MIL/MM3 (4.50-5.90); RED CELL DISTRIBUTION WIDTH 16.9 % (11.6-17.2); WHITE BLOOD COUNT 7.2 TH/MM3 (4.0-11.0)
[2017-10-17 20:44] LABS: BICARBONATE 23.3 MEQ/L (21.0-32.0); POTASSIUM 4.1 MEQ/L (3.5-5.1)
[2017-10-17 20:45] LABS: BETA-HYDROXYBUTYRATE 0.28 MMOL/L (0.00-0.39)
--- NOTE | 2017-10-17 21:20 | RADRPT ---
EXAM DATE/TIME: 10/17/2017 20:40 [facility] COMPARISON: TOE RIGHT 2ND DIGIT(MIN 2VWS), October 13, 2017, 12:20. FOOT RIGHT COMPLETE ([id number]), February 18 17, 17:56. INDICATIONS : Second digit right toe pain and swelling, was here Saturday and has become worse since then. MEDICAL HISTORY : Diabetes mellitus type II. SURGICAL HISTORY : Multiple toe amputations. ENCOUNTER: Initial ACUITY: 4 - 6 days PAIN SCORE: 7/10 LOCATION: Right foot, second digit. FINDINGS: Soft tissue swelling is again noted involving the dorsal aspect of the right second toe. Marginal ero sions are noted involving the medial aspect of the distal portion of the right first and second proxi mal phalanges. The patient is status post amputations of the right third and fourth toes. No fracture or dislocation is noted. Achilles and plantar calcaneal spurs are noted. Arteriovascular calcificati ons are noted. No radiopaque foreign body is noted. CONCLUSION: 1. Soft tissue swelling is again noted involving the dorsal aspect of the right second toe. 2. Marginal erosions are noted involving the medial aspect of the distal portion of the right first a nd second proximal phalanges. 3. Status post amputations of the right third and fourth toes. 4. No fracture or dislocation. 5. Achilles and plantar calcaneal spurs. Jacob Morfin MD on October 17, 2017 at 21:15 Board Certified Radiologist. This report was verified electronically.
[2017-10-17] MEDS ORDERED: CEPHALEXIN MONOHYDRATE 500 MG CAP PO ONE (21:30)
[2017-10-17] MEDS ORDERED: SULFAMETHOXAZOLE-TRIMETHOPRIM DS 800-160 MG TAB PO ONE (21:30)
== END 2017-10-17 22:34 | disposition home or self-care (01) ==
LOC: NEPC 18:02
DX: L08.89 Other specified local infections of the skin and subcutaneous tissue (principal); E11.621 Type 2 diabetes mellitus with foot ulcer; E78.00 Pure hypercholesterolemia, unspecified; I10 Essential (primary) hypertension; I25.10 Atherosclerotic heart disease of native coronary artery without angina pectoris; K21.9 Gastro-esophageal reflux disease without esophagitis; F17.200 Nicotine dependence, unspecified, uncomplicated; Z79.01 Long term (current) use of anticoagulants; Z79.4 Long term (current) use of insulin; Z86.79 Personal history of other diseases of the circulatory system; Z86.718 Personal history of other venous thrombosis and embolism; Z86.59 Personal history of other mental and behavioral disorders; Z72.89 Other problems related to lifestyle
CPT/HCPCS: 73630; 80048; 82010; 85025; 85652; 87040; 96374; 99285; J2270; J7030

== ENCOUNTER 2017-10-25 11:35 | Inpatient (IN) | payer OTHER ==
[~2017-10-25] VITALS: Ht 172.7 cm; Wt 85.0 kg
[~2017-10-25 11:35] MED LIST changes: +ASPI-516 CHEW; -HUMALOG SQ; -JANU50TA4 PO; +LANTUS2P SQ; -LEVEMIR SQ; -SPIR25 PO
[2017-10-25] MEDS ORDERED: GADODIAMIDE PF 287 MG/ML 5 ML VIAL (for RAD MRI) IVCONTRAST ONE (11:36)
[2017-10-25 11:37] VITALS: BP 157/82; PULSE 84; RESP 12; TEMP 98.1; O2SAT 100
--- NOTE | 2017-10-25 12:33 | PD ---
HPI Chief Complaint: Skin Problem Time Seen by Provider: 12:02 Travel History International Travel<30 days: No Contact w/Intl Traveler<30days: No Traveled to known affect area: No History of Present Illness HPI 52-year-old male presents risk department complaining of right first and second toe pain that has been persistent for 2 weeks. Patient states that he was in the emergency department several days ago and treated with antibiotics. States that his pain is worsening and he has had some night sweats. Patient also states that his sugar has been elevated which often indicates that he has an infection. Patient denies chest pain, shortness of breath, nausea, vomiting, diarrhea. Patient has not seen a journalism internship but decided to come to this hospital because his doctors Dr. Abreu. [facility] Past Medical History Hx Anticoagulant Therapy: Yes Asthma: No Blood Disorders: No Anxiety: Yes Depression: Yes Heart Rhythm Problems: Yes Cancer: No Cardiovascular Problems: Yes High Cholesterol: Yes Chest Pain: Yes (PRIOR TO THIS ADMIT) Congestive Heart Failure: Yes COPD: No Coronary Artery Disease: Yes Diabetes: Yes Patient Takes Glucophage: No Diminished Hearing: No Deep Vein Thrombosis: Yes Endocrine: Yes GERD: Yes Genitourinary: No Hypertension: Yes Immune Disorder: No Implanted Vascular Access Dvce: Yes Neurologic: No Psychiatric: Yes Reproductive: No Respiratory: Yes Immunizations Current: Yes Sleep Apnea: No Thyroid Disease: No Ulcer: No (UTO) Tetanus Vaccination: < 5 Years Past Surgical History Body Medical Devices: PINS/RODS LEFT ARM. PT WEARS AN EXTERNAL LIFEVEST Thoracic Surgery: Yes (SPINAL SURGERY) Other Surgery: Yes (partial amputation to the left foot, mid metatarsals. Right fourth toe amp) Social History Alcohol Use: Yes (OCCASIONALLY) Tobacco Use: Yes (4 cigarettes daily) Substance Use: Yes (MARIJUANA) Allergies-Medications (Allergen,Severity, Reaction): Coded Allergies: oxycodone (Verified Allergy, Severe, Rash, 10/25/17) vancomycin (Verified Allergy, Severe, Rash, 10/25/17) acetaminophen (Verified Adverse Reaction, Intermediate, Rash, 10/25/17) *MDRO Multi-Drug Resistant Organism (Verified Adverse Reaction, Unknown, 10/25/17) MRSA (foot wound) - 09/2015 & 09/26/16 Reported Meds & Prescriptions Reported Meds & Active Scripts Active Klor-Con 10 (Potassium Chloride) 10 Meq Tab 10 Meq PO BID Lasix (Furosemide) 40 Mg Tab 40 Mg PO BID Pantoprazole (Pantoprazole Sodium) 40 Mg Tab 40 Mg PO DAILY Lisinopril 20 Mg Tab 40 Mg PO DAILY Coreg (Carvedilol) 12.5 Mg Tab 25 Mg PO Q12HR Lipitor (Atorvastatin Calcium) 10 Mg Tab 10 Mg PO DAILY Norvasc (Amlodipine Besylate) 5 Mg Tab 2.5 Mg PO DAILY Reported Aspirin 81 Mg Chew 81 Mg CHEW DAILY Folic Acid 0.8 Mg Tab 1,000 Mcg PO DAILY Xarelto (Rivaroxaban) 20 Mg Tab 20 Mg PO DAILY@1600 Review of Systems Except as stated in HPI: all other systems reviewed are Neg Physical Exam Narrative GENERAL: Well-nourished, well-developed patient. SKIN: Focused skin assessment warm/dry. HEAD: Normocephalic. EYES: No scleral icterus. No injection or drainage. NECK: Supple, trachea midline. No JVD or lymphadenopathy. CARDIOVASCULAR: Regular rate and rhythm without murmurs, gallops, or rubs. RESPIRATORY: Breath sounds equal bilaterally. No accessory muscle use. GASTROINTESTINAL: Abdomen soft, non-tender, nondistended. MUSCULOSKELETAL: No cyanosis, or edema. Left foot- medications. Right foot- first and second toe with ulcers to the superior aspect of the PIPs , central eschar of the second toe BACK: Nontender without obvious deformity. No CVA tenderness. Data Data Last Documented VS Vital Signs Date Time Temp Pulse Resp B/P (MAP) Pulse Ox O2 Delivery O2 Flow Rate FiO2 10/25/17 11:37 98.1 84 12 157/82 (107) 100 Orders Orders Westergren Sedimentation Rate (10/25/17 12:09) Mri Foot W&W/O Contrast (10/25/17 ) C-Reactive Protein (Crp) (10/25/17 12:09) Comprehensive Metabolic Panel (10/25/17 12:09) Complete Blood Count With Diff (10/25/17 12:09) Gadodiamide Pf Inj (Omniscan Pf Inj) (10/25/17 11:36) Morphine Inj (Morphine Inj) (10/25/17 14:30) Piperacil-Tazo 4.5 Gm Premix (Zosyn 4.5 (10/25/17 15:30) Admit Order (Ed Use Only) (10/25/17 16:30) Labs Laboratory Tests Test 10/25/17 13:00 White Blood Count 6.2 TH/MM3 Red Blood Count 4.02 MIL/MM3 Hemoglobin 11.2 GM/DL Hematocrit 33.5 % Mean Corpuscular Volume 83.2 FL Mean Corpuscular Hemoglobin 27.9 PG Mean Corpuscular Hemoglobin Concent 33.5 % Red Cell Distribution Width 15.7 % Platelet Count 152 TH/MM3 Mean Platelet Volume 9.2 FL Neutrophils (%) (Auto) 63.6 % Lymphocytes (%) (Auto) 23.2 % Monocytes (%) (Auto) 7.4 % Eosinophils (%) (Auto) 5.0 % Basophils (%) (Auto) 0.8 % Neutrophils # (Auto) 4.0 TH/MM3 Lymphocytes # (Auto) 1.4 TH/MM3 Monocytes # (Auto) 0.5 TH/MM3 Eosinophils # (Auto) 0.3 TH/MM3 Basophils # (Auto) 0.1 TH/MM3 CBC Comment DIFF FINAL Differential Comment Erythrocyte Sedimentation Rate 32 mm/hr Blood Urea Nitrogen 16 MG/DL Creatinine 0.84 MG/DL Random Glucose 163 MG/DL Total Protein 6.8 GM/DL Albumin 2.6 GM/DL Calcium Level 8.1 MG/DL Alkaline Phosphatase 119 U/L Aspartate Amino Transf (AST/SGOT) 22 U/L Alanine Aminotransferase (ALT/SGPT) 24 U/L Total Bilirubin 0.4 MG/DL Sodium Level 137 MEQ/L Potassium Level 4.0 MEQ/L Chloride Level 105 MEQ/L Carbon Dioxide Level 27.5 MEQ/L Anion Gap 5 MEQ/L Estimat Glomerular Filtration Rate 96 ML/MIN C-Reactive Protein LESS THAN 0.29 MG/DL [facility] Medical Decision Making Medical Screen Exam Complete: Yes Emergency Medical Condition: Yes Differential Diagnosis Right foot osteomyelitis, cellulitis, erysipelas Narrative Course 52-year-old male presents risk department complaining of right first and second toe pain that has been persistent for 2 weeks. Patient states that he was in the emergency department several days ago and treated with antibiotics. States that his pain is worsening and he has had some night sweats. Patient also states that his sugar has been elevated which often indicates that he has an infection. Patient denies chest pain, shortness of breath, nausea, vomiting, diarrhea. Patient has not seen a journalism internship but decided to come to this hospital because his doctors Dr. Abreu. Patient has a significant history for diabetes mellitus with neuropathy and congestive heart failure. Vital signs stable Laboratory Tests Test 10/25/17 13:00 White Blood Count 6.2 TH/MM3 Red Blood Count 4.02 MIL/MM3 Hemoglobin 11.2 GM/DL Hematocrit 33.5 % Mean Corpuscular Volume 83.2 FL Mean Corpuscular Hemoglobin 27.9 PG Mean Corpuscular Hemoglobin Concent 33.5 % Red Cell Distribution Width 15.7 % Platelet Count 152 TH/MM3 Mean Platelet Volume 9.2 FL Neutrophils (%) (Auto) 63.6 % Lymphocytes (%) (Auto) 23.2 % Monocytes (%) (Auto) 7.4 % Eosinophils (%) (Auto) 5.0 % Basophils (%) (Auto) 0.8 % Neutrophils # (Auto) 4.0 TH/MM3 Lymphocytes # (Auto) 1.4 TH/MM3 Monocytes # (Auto) 0.5 TH/MM3 Eosinophils # (Auto) 0.3 TH/MM3 Basophils # (Auto) 0.1 TH/MM3 CBC Comment DIFF FINAL Differential Comment Erythrocyte Sedimentation Rate 32 mm/hr Blood Urea Nitrogen 16 MG/DL Creatinine 0.84 MG/DL Random Glucose 163 MG/DL Total Protein 6.8 GM/DL Albumin 2.6 GM/DL Calcium Level 8.1 MG/DL Alkaline Phosphatase 119 U/L Aspartate Amino Transf (AST/SGOT) 22 U/L Alanine Aminotransferase (ALT/SGPT) 24 U/L Total Bilirubin 0.4 MG/DL Sodium Level 137 MEQ/L Potassium Level 4.0 MEQ/L Chloride Level 105 MEQ/L Carbon Dioxide Level 27.5 MEQ/L Anion Gap 5 MEQ/L Estimat Glomerular Filtration Rate 96 ML/MIN C-Reactive Protein LESS THAN 0.29 MG/DL Labs indicate a worsening infectious process. Last Impressions Foot MRI 10/25/17 0000 Signed Impressions: Service Date/Time: Wednesday, October 25, 2017 13:30 - CONCLUSION: 1. There is abnormal signal and abnormal enhancement involving the second toe. This would be suspicious for osteomyelitis. 2. There are degenerative changes in involving the first distal phalanx with some questionable increased signal in the first proximal phalanx. However no definite abnormal enhancement is seen to suggest osteomyelitis. This may be related to degenerative type changes Greg Mazariegos MD Because of patient's worsening signs and symptoms, ordered an MRI. This demonstrated suspicious for osteomyelitis. Patient be started on Zosyn. Patient has an allergy to vancomycin. Note the patient also has severe congestive heart failure. We'll restrict fluids for now. Patient notified understood process. Spoke with Dr. Peoples and she requested A1c, YARELY and a preop. Diagnosis Primary Impression: Osteomyelitis Qualified Codes: M86.171 - Other acute osteomyelitis, right ankle and foot Admitting Information Admitting Physician Requests: Admit Condition: Stable Lina Sal Oct 25, 2017 12:33
[2017-10-25 13:25] LABS: BASOPHIL # 0.1 TH/MM3 (0-0.2); BASOPHIL % 0.8 % (0.0-2.0); EOSINOPHIL # 0.3 TH/MM3 (0-0.4); HEMATOCRIT 33.5 % (39.0-51.0); HEMO FLAGS DIFF FINAL; LYMPH % 23.2 % (9.0-44.0); LYMPHOCYTE # 1.4 TH/MM3 (1.0-4.8); MEAN CELL VOLUME 83.2 FL (80.0-100.0); MEAN CORPUSCULAR HEMOGLOBIN 27.9 PG (27.0-34.0); MEAN CORPUSCULAR HGB CONC 33.5 % (32.0-36.0); MONO % 7.4 % (0.0-8.0); NEUT % 63.6 % (16.0-70.0); PLATELET COUNT 152 TH/MM3 (150-450); RED BLOOD COUNT 4.02 MIL/MM3 (4.50-5.90); RED CELL DISTRIBUTION WIDTH 15.7 % (11.6-17.2); WHITE BLOOD COUNT 6.2 TH/MM3 (4.0-11.0)
[2017-10-25 13:40] LABS: ALT (GPT) 24 U/L (12-78); ANION GAP 5 MEQ/L (5-15); AST (GOT) 22 U/L (15-37); BICARBONATE 27.5 MEQ/L (21.0-32.0); BLOOD UREA NITROGEN 16 MG/DL (7-18); CHLORIDE 105 MEQ/L (98-107); GLOMERULAR FILTRATION RATE 96 ML/MIN (>89); SODIUM (NA) 137 MEQ/L (136-145)
[2017-10-25 13:43] LABS: ALKALINE PHOSPHATASE 119 U/L (45-117); TOTAL BILIRUBIN ADULT 0.4 MG/DL (0.2-1.0)
[2017-10-25] MEDS ORDERED: MORPHINE SULFATE 4 MG/ML INJ IV PUSH ONE (14:30)
--- NOTE | 2017-10-25 15:04 | RADRPT ---
EXAM DATE/TIME: 10/25/2017 13:30 [facility] COMPARISON: TOE RIGHT 2ND DIGIT(MIN 2VWS), October 13, 2017, 12:20. FOOT RIGHT COMPLETE ([id number]), October 17, 2017, 20:40. MRI FOOT RIGHT W & W/O CONTRAST, September 27, 2015, 11:25. INDICATIONS : Osteomyelitis. CONTRAST: 14 cc Omniscan (gadodiamide) IV MEDICAL HISTORY : None. SURGICAL HISTORY : None. ENCOUNTER: Initial ACUITY: 2 weeks PAIN SCORE: 0/10 LOCATION: Right foot TECHNIQUE: Multiplanar, multisequence MRI examination was performed without contrast and after the intravenous a dministration of gadolinium. FINDINGS: BONE/CARTILAGE: Patient is status post amputation of the third and fourth toes. There is normal signal intensity in t he metatarsal bones. There appears to be abnormal signal within the proximal, middle phalanx and dist al phalanx of the second toe. There is degenerative changes involving the first distal phalanx. On th e T2 fat-sat there is some increased signal in the first proximal phalanx.. TENDONS: All of the visualized tendons are grossly intact. MISCELLANEOUS: There is nonspecific edema throughout the soft tissues of the foot. No loculated fluid collections ar e demonstrated. POST-CONTRAST: There appears to be abnormal enhancement involving the second toe. No definite abnormal enhancement o f the first toe. CONCLUSION: 1. There is abnormal signal and abnormal enhancement involving the second toe. This would be suspicio us for osteomyelitis. 2. There are degenerative changes in involving the first distal phalanx with some questionable increa sed signal in the first proximal phalanx. However no definite abnormal enhancement is seen to suggest osteomyelitis. This may be related to degenerative type changes Greg Mazariegos MD on October 25, 2017 at 14:53 Board Certified Radiologist. This report was verified electronically.
[2017-10-25] MEDS ORDERED: PIPERACIL-TAZO 4.5 GM PREMIX 100 ML IV ONE (15:30)
--- NOTE | 2017-10-25 17:22 | RADRPT ---
EXAM DATE/TIME: 10/25/2017 16:57 [facility] COMPARISON: CHEST SINGLE AP, February 18, 2017, 18:01. INDICATIONS : Post procedure right foot infection. Chest discomfort today. MEDICAL HISTORY : Gastroesophageal reflux disease. Congestive heart failure. Hypertension. Diabetes, Anxiety. Coron shania artery disease. SURGICAL HISTORY : Spinal surgery. ENCOUNTER: Initial ACUITY: 1 day PAIN SCORE: 2/10 LOCATION: Left upper chest FINDINGS: A single view of the chest demonstrates the lungs to be symmetrically aerated without evidence of mas s, infiltrate or effusion. There are chronic insertional changes bilaterally. The heart size is mild ly prominent but stable compared to the prior study.. Osseous structures are intact. CONCLUSION: No acute disease. No significant change has occurred. Greg Mazariegos MD on October 25, 2017 at 17:19 Board Certified Radiologist. This report was verified electronically.
[2017-10-25 17:24] VITALS: BP 132/84; PULSE 87; RESP 17; TEMP 96.8; O2SAT 98
[2017-10-25] MEDS ORDERED: diphenhydrAMINE HCL 50 MG/ML VIAL IV PUSH PRN (17:45)
[2017-10-25] MEDS ORDERED: PROCHLORPERAZINE 25 MG SUPP RECTAL PRN (17:45)
[2017-10-25] MEDS ORDERED: MAGNESIUM HYDROXIDE SUSP 30 ML CUP PO PRN (17:45)
[2017-10-25] MEDS ORDERED: DEXTROSE 50% IN WATER 50 ML VIAL(D50) IV PUSH PRN (17:45)
[2017-10-25] MEDS ORDERED: BISACODYL 10 MG SUPP RECTAL PRN (17:45)
[2017-10-25] MEDS ORDERED: Vancomycin Consult Pharmacy 1 EA OTHER SCH (17:45)
[2017-10-25] MEDS ORDERED: ACETAMINOPHEN 325 MG TAB PO PRN ×2 (17:45)
[2017-10-25] MEDS ORDERED: cloNIDine HCL 0.1 MG TAB PO PRN (17:45)
[2017-10-25] MEDS ORDERED: MORPHINE SULFATE 4 MG/ML INJ IV PUSH PRN (17:45)
[2017-10-25] MEDS ORDERED: NALOXONE HCL 0.4 MG/ML AMP IV PUSH PRN (17:45)
[2017-10-25] MEDS ORDERED: ZOLPIDEM TARTRATE 5 MG TAB PO PRN (17:45)
[2017-10-25] MEDS ORDERED: HEPARIN SODIUM - SQ 10,000 UNITS/ML VIAL SQ SCH (17:45)
[2017-10-25] MEDS ORDERED: SENNOSIDES 8.6 MG TAB PO PRN (17:45)
[2017-10-25] MEDS ORDERED: LACTULOSE SYRUP 20 GM/30 ML CUP PO PRN (17:45)
[2017-10-25] MEDS ORDERED: GLUCAGON 1 MG/ML VIAL OTHER PRN (17:45)
--- NOTE | 2017-10-25 17:52 | HHI.HP ---
HPI Service [facility] Hospitalists Primary Care Physician No Primary Care Physician Admission Diagnosis osteo right foot Diagnoses: Chief Complaint: Right foot pain Nonhealing wound right foot Travel History International Travel<30 Days: No Contact w/Intl Traveler <30 Da: No Traveled to Known Affected Are: No History of Present Illness This is a 52yo male with a PMHX negative for congestive heart failure with CHF EF of 30%, IDDM, hx of DVT on Xarelto. hypertension, dyslipidemia and GERD who presents to [facility] ED with complaints of worsening right toe infection. He reports he was in the ED several days ago and was treated with antibiotics. He complains of worsening pain in the right second toe and associated non-healing wound. He denies any fever. He reports night sweats. He states his sugars have been elevated at home. In the ED, MRI of the right foot was obtained and was suspicious for osteomyelitis. Review of Systems Constitutional: DENIES: Diaphoretic episodes, Fatigue, Fever, Weight gain, Weight loss, Chills, Dizziness, Change in appetite Endocrine: DENIES: Heat/cold intolerance, Polydipsia, Polyuria, Polyphagia Eyes: DENIES: Blurred vision, Diplopia, Eye inflammation, Eye pain, Vision loss Ears, nose, mouth, throat: DENIES: Tinnitus, Hearing loss, Vertigo, Nasal discharge, Oral lesions, Throat pain Respiratory: DENIES: Apneas, Cough, Snoring, Wheezing, Hemoptysis Cardiovascular: DENIES: Chest pain, Palpitations, Syncope, Dyspnea on Exertion Gastrointestinal: DENIES: Abdominal pain, Black stools, Bloody stools, Constipation Musculoskeletal: DENIES: Joint pain, Muscle aches, Stiffness, Joint Swelling, Back pain Integumentary: DENIES: Abnormal pigmentation, Nail changes Hematologic/lymphatic: DENIES: Bruising, Lymphadenopathy Immunologic/allergic: DENIES: Eczema, Urticaria Neurologic: DENIES: Abnormal gait, Headache, Localized weakness, Paresthesias, Seizures, Speech Problems Psychiatric: DENIES: Anxiety, Confusion, Mood changes, Depression, Hallucinations, Agitation Except as stated in HPI: all other systems reviewed are Neg Past Family Social History Past Medical History CHF EF 30% HTN DM GERD Hx of DVT on Xarelto Past Surgical History 3rd and 4th toes amputated on right foot Left forefoot amputation Back surgery for removal spine cyst Pins/rods left arm Reported Medications Klor-Con 10 (Potassium Chloride) 10 Meq Tab 10 Meq PO BID Lasix (Furosemide) 40 Mg Tab 40 Mg PO BID Pantoprazole (Pantoprazole Sodium) 40 Mg Tab 40 Mg PO DAILY Lisinopril 20 Mg Tab 40 Mg PO DAILY Coreg (Carvedilol) 12.5 Mg Tab 25 Mg PO Q12HR Lipitor (Atorvastatin Calcium) 10 Mg Tab 10 Mg PO DAILY Norvasc (Amlodipine Besylate) 5 Mg Tab 2.5 Mg PO DAILY Aspirin 81 Mg Chew 81 Mg CHEW DAILY Folic Acid 0.8 Mg Tab 1,000 Mcg PO DAILY Xarelto (Rivaroxaban) 20 Mg Tab 20 Mg PO DAILY@1600 Allergies: Coded Allergies: *MDRO Multi-Drug Resistant Organism (Verified Adverse Reaction, Unknown, 10/25/17) MRSA (foot wound) - 09/2015 & 09/26/16 Active Ordered Medications Current Medications Medications (Trade) Dose Ordered Sig/Orville Route Start Time Stop Time Status Last Admin (D50w (Vial) Inj) 50 ml UNSCH PRN IV PUSH 10/25/17 17:45 UNV (Glucagon Inj) 1 mg UNSCH PRN OTHER 10/25/17 17:45 UNV (NovoLOG SUPPLEMENTAL SCALE) 1 ACHS SLIDING SCALE SQ 10/25/17 21:00 UNV (Catapres) 0.1 mg Q4H PRN PO 10/25/17 17:45 UNV Pharmacy Profile Note 0 ml @ 0 mls/hr UNSCH OTHER 10/25/17 17:45 UNV Vancomycin HCl 1000 mg/Sodium Chloride 250 ml @ 250 mls/hr ONCE ONCE IV 10/25/17 17:45 10/25/17 18:44 UNV (Benadryl Inj) 25 mg Q6H PRN IV PUSH 10/25/17 17:45 UNV (Benadryl) 50 mg Q6H PO 10/25/17 17:45 UNV Sodium Chloride 1,000 ml @ 100 mls/hr Q10H IV 10/25/17 17:37 UNV (NS Flush) 2 ml UNSCH PRN IV FLUSH 10/25/17 17:45 UNV (NS Flush) 2 ml BID IV FLUSH 10/25/17 21:00 UNV (Tylenol) 650 mg Q4H PRN PO 10/25/17 17:45 UNV (Zofran Inj) 4 mg Q6H PRN IVP 10/25/17 17:45 UNV (Compazine Supp) 25 mg Q12H PRN NE 10/25/17 17:45 UNV (Ambien) 5 mg HS PRN PO 10/25/17 17:45 UNV (Tylenol) 650 mg Q6H PRN PO 10/25/17 17:45 UNV (Roxicodone) 10 mg Q4H PRN PO 10/25/17 17:45 UNV (Morphine Inj) 2 mg Q3H PRN IV PUSH 10/25/17 17:45 UNV (Morphine Inj) 4 mg Q3H PRN IV PUSH 10/25/17 17:45 UNV (Roxicodone) 5 mg Q4H PRN PO 10/25/17 17:45 UNV (Narcan Inj) 0.4 mg UNSCH PRN IV PUSH 10/25/17 17:45 UNV (Mariam-Colace) 1 tab BID PO 10/25/17 21:00 UNV (Milk Of Magnesia Liq) 30 ml Q12H PRN PO 10/25/17 17:45 UNV (Senokot) 17.2 mg Q12H PRN PO 10/25/17 17:45 UNV (Dulcolax Supp) 10 mg DAILY PRN RECTAL 10/25/17 17:45 UNV (Lactulose Liq) 30 ml DAILY PRN PO 10/25/17 17:45 UNV Piperacillin Sod/ Tazobactam Sod 100 ml @ 200 mls/hr Q6H IV 10/25/17 17:45 UNV (Heparin Inj) 5,000 units Q8H SQ 10/26/17 01:45 UNV Family History Family medical history significant for diabetes and coronary artery disease. Social History Patient reports smoking 3-4 cigarettes daily. He denies any alcohol consumption since . He reports marijuana use. Physical Exam Vital Signs Vital Signs Date Time Temp Pulse Resp B/P (MAP) Pulse Ox O2 Delivery O2 Flow Rate FiO2 10/25/17 17:24 96.8 87 17 132/84 (100) 98 10/25/17 11:37 98.1 84 12 157/82 (107) 100 Physical Exam GENERAL: This is a well-nourished, well-developed patient, in no apparent distress. Awake and alert. SKIN: No rashes, ecchymoses or lesions. Cool and dry. HEAD: Atraumatic. Normocephalic. No temporal or scalp tenderness. EYES: Pupils equal round and reactive. Extraocular motions intact. No scleral icterus. No injection or drainage. ENT: Nose without bleeding, purulent drainage or septal hematoma. Throat without erythema, tonsillar hypertrophy or exudate. Uvula midline. Airway patent. NECK: Trachea midline. No JVD or lymphadenopathy. Supple, nontender, no meningeal signs. CARDIOVASCULAR: Regular rate and rhythm without murmurs, gallops, or rubs. RESPIRATORY: Clear to auscultation. Breath sounds equal bilaterally. No wheezes , rales, or rhonchi. GASTROINTESTINAL: Abdomen soft, non-tender, nondistended. No hepato-splenomegaly , or palpable masses. No guarding. MUSCULOSKELETAL: Extremities without clubbing, cyanosis, or edema. (+)left forefoot amputation. (+)open wound on 1st and 2nd digit right foot. NEUROLOGICAL: Awake and alert. Able to move all extremities. No focal neurologic finding appreciated. Normal speech. Laboratory Laboratory Tests Test 10/25/17 13:00 White Blood Count 6.2 Red Blood Count 4.02 Hemoglobin 11.2 Hematocrit 33.5 Mean Corpuscular Volume 83.2 Mean Corpuscular Hemoglobin 27.9 Mean Corpuscular Hemoglobin Concent 33.5 Red Cell Distribution Width 15.7 Platelet Count 152 Mean Platelet Volume 9.2 Neutrophils (%) (Auto) 63.6 Lymphocytes (%) (Auto) 23.2 Monocytes (%) (Auto) 7.4 Eosinophils (%) (Auto) 5.0 Basophils (%) (Auto) 0.8 Neutrophils # (Auto) 4.0 Lymphocytes # (Auto) 1.4 Monocytes # (Auto) 0.5 Eosinophils # (Auto) 0.3 Basophils # (Auto) 0.1 CBC Comment DIFF FINAL Differential Comment Erythrocyte Sedimentation Rate 32 Blood Urea Nitrogen 16 Creatinine 0.84 Random Glucose 163 Total Protein 6.8 Albumin 2.6 Calcium Level 8.1 Alkaline Phosphatase 119 Aspartate Amino Transf (AST/SGOT) 22 Alanine Aminotransferase (ALT/SGPT) 24 Total Bilirubin 0.4 Sodium Level 137 Potassium Level 4.0 Chloride Level 105 Carbon Dioxide Level 27.5 Anion Gap 5 Estimat Glomerular Filtration Rate 96 C-Reactive Protein LESS THAN 0.29 Result Diagram: 10/25/17 1300 10/25/17 1300 Imaging Last Impressions Foot MRI 10/25/17 0000 Signed Impressions: Service Date/Time: Wednesday, October 25, 2017 13:30 - CONCLUSION: 1. There is abnormal signal and abnormal enhancement involving the second toe. This would be suspicious for osteomyelitis. 2. There are degenerative changes in involving the first distal phalanx with some questionable increased signal in the first proximal phalanx. However no definite abnormal enhancement is seen to suggest osteomyelitis. This may be related to degenerative type changes MD Lakeshia Duncan VTE Risk Assessment Lakeshia VTE Risk Assessment: Mod/High Risk (score >= 2) Caprini Risk Assessment Model Point Value = 1 Point Value = 2 Point Value = 3 Point Value = 5 Age 41-60 Minor surgery BMI > 25 kg/m2 Swollen legs Varicose veins or History of unexplained or recurrent spontaneous Oral contraceptives or hormone replacement Sepsis (< 1 month) Serious lung disease, including pneumonia (< 1 month) Abnormal pulmonary function Acute myocardial infarction Congestive heart failure (< 1 month) History of inflammatory bowel disease Medical patient at bed rest Age 61-74 Arthroscopic surgery Major open surgery (> 45 min) Laparoscopic surgery (> 45 min) Malignancy Confined to bed (> 72 hours) Immobilizing plaster cast Central venous access Age >= 75 History of VTE Family history of VTE Factor V Leiden Prothrombin [id number] Lupus anticoagulant Anticardiolipin antibodies Elevated serum homocysteine Heparin-induced thrombocytopenia Other congenital or acquired thrombophilia Stroke (< 1 month) Elective arthroplasty Hip, pelvis, or leg fracture Acute spinal cord injury (< 1 month) Prophylaxis Regimen Total Risk Factor Score Risk Level Prophylaxis Regimen 0-1 Low Early ambulation 2 Moderate Order ONE of the following: *Sequential Compression Device (SCD) *Heparin 5000 units SQ BID 3-4 Higher Order ONE of the following medications: *Heparin 5000 units SQ TID *Enoxaparin/Lovenox 40 mg SQ daily (WT < 150 kg, CrCl > 30 mL/min) *Enoxaparin/Lovenox 30 mg SQ daily (WT < 150 kg, CrCl > 10-29 mL/min) *Enoxaparin/Lovenox 30 mg SQ BID (WT < 150 kg, CrCl > 30 mL/min) AND/OR *Sequential Compression Device (SCD) 5 or more Highest Order ONE of the following medications: *Heparin 5000 units SQ TID (Preferred with Epidurals) *Enoxaparin/Lovenox 40 mg SQ daily (WT < 150 kg, CrCl > 30 mL/min) *Enoxaparin/Lovenox 30 mg SQ daily (WT < 150 kg, CrCl > 10-29 mL/min) *Enoxaparin/Lovenox 30 mg SQ BID (WT < 150 kg, CrCl > 30 mL/min) AND *Sequential Compression Device (SCD) Assessment and Plan Assessment and Plan Right diabetic foot ulcer Osteomyelitis - MRI right foot reviewed and shows normal signal and abnormal enhancement involving the second toe suspicious for osteomyelitis, degenerative changes involving the first distal phalanx with some questionable increased signal in the first proximal phalanx. - ESR 32, CRP less than 0.29 - Consult podiatry, appreciate assistance - Consult ID - patient given IV Zosyn in the ED. Continue on IV Zosyn and add IV Vancomycin. - pain management with bowel regimen - IVF CHF with EF 30%, chronic, not decompensated Hypertension - echo 10/20/16 with EF 30%. Patient is supposed to be wearing a LifeVest. - patient scheduled to have AICD placed previously but surgery held due to infection - Patient appears euvolemic. Monitor for signs of fluid overload. - Continue patient on Lisinopril 40mg daily, Lasix 40mg daily, Coreg 25mg BID , Norvasc 2.5mg daily. Continue on KlorCon 10meq BID. Monitor electrolytes. - ASA daily/hold for now - continuous cardiac monitoring DM, type 2 - accucheck and ISS - resume home dose of insulin - obtain HgbA1c Hx of recurrent DVTs - patient on Xarelto 20mg daily. Hold for now. Dyslipidemia - resume patient on home dose of Lipitor 10mg daily GERD - PPI DVT prophylaxis - Heparin sq The exam, history, and the medical decision-making described in the above note were completed with the assistance of the mid-level provider. I reviewed and agree with the findings presented. I attest that I had a [id number] encounter with the patient on the same day, and personally performed and documented my assessment and findings in the medical record. Code Status Full code Discussed Condition With ED physician, patient, nursing staff Physician Certification 2 Midnight Certification Type: Admission for Inpatient Services Order for Inpatient Services The services are ordered in accordance with Medicare regulations or non- Medicare payer requirements, as applicable. In the case of services not specified as inpatient-only, they are appropriately provided as inpatient services in accordance with the 2-midnight benchmark. Estimated LOS (days): 3 3 days is the estimated time the patient will need to remain in the hospital, assuming treatment plan goals are met and no additional complications. Post-Hospital Plan: Not yet determined Emmie Duenas Oct 25, 2017 17:52 Sharad Tapia DO Oct 25, 2017 18:20
[2017-10-25] MEDS ORDERED: PILL SPLITTER OTHER PRN (19:00)
[2017-10-25 20:00] VITALS: BP 151/88; PULSE 81; PULSE 83; RESP 20; TEMP 97.5; O2SAT 96
[2017-10-25] MEDS ORDERED: VANCOMYCIN INJ 1,000 MG in SODIUM CHLOR 0.9% 250 ML INJ 250 ML IV ONE (20:00)
[2017-10-25] MEDS ORDERED: diphenhydrAMINE HCL 50 MG CAP PO ONE (20:00)
[2017-10-25 20:14] LABS: APTT (PATIENT) 27.7 SEC (24.3-30.1); INTERNATIONAL NORMALIZED RATIO 1.2 RATIO; PROTHROMBIN TIME - PATIENT 11.9 SEC (9.8-11.6)
[2017-10-25] MEDS: INSULIN ASPART SUPPLEMENTAL SCALE SQ SCH (21:00)
[2017-10-25] MEDS: SODIUM CHLORIDE 0.9% FLUSH 10 ML FLUSH IV FLUSH SCH (21:00)
[2017-10-25] MEDS: INSULIN DETEMIR 100 UNITS/ML VIAL SQ SCH (21:00)
[2017-10-25] MEDS: MORPHINE SULFATE 4 MG/ML INJ IV PUSH PRN (21:52)
[2017-10-25] MEDS: DOCUSATE SODIUM 50 MG/SENNA 8.6 MG TAB PO SCH (21:54)
[2017-10-25] MEDS: FUROSEMIDE 40 MG TAB PO SCH (21:54)
[2017-10-25] MEDS: CARVEDILOL 12.5 MG TAB PO SCH (21:55)
[2017-10-25] MEDS: POTASSIUM CHLORIDE 10 MEQ CONTROLLED RELEASE TAB PO SCH (21:56)
[2017-10-25] MEDS: HEPARIN SODIUM - SQ 10,000 UNITS/ML VIAL SQ SCH (21:56)
[2017-10-25] MEDS: SODIUM CHLOR 0.9% 1000 ML INJ 1,000 ML IV SCH (22:14)
[2017-10-25 22:15] LABS: HEMOGLOBIN A1a 1.2 %; HEMOGLOBIN A1b 0.9 %; HEMOGLOBIN Ao 79.4 %; HEMOGLOBIN F 1.3 %; HEMOGLOBIN LA1C 2.4 %; HEMOGLOBIN P3 4.7 %
[2017-10-26] VITALS: BP 149/88; PULSE 79; RESP 20; TEMP 97.1; O2SAT 96
[2017-10-26] MEDS: ONDANSETRON HCL 4 MG/2 ML VIAL IVP PRN ×3 (00:55→17:20)
[2017-10-26] MEDS: PIPERACIL-TAZO 4.5 GM PREMIX 100 ML IV SCH ×4 (00:55→17:41)
[2017-10-26] MEDS ORDERED: LACTATED RINGER'S 1000 ML IV PRN (01:45)
[2017-10-26] MEDS: diphenhydrAMINE HCL 50 MG CAP PO SCH ×2 (04:15→18:00)
[2017-10-26] MEDS: SODIUM CHLOR 0.9% 1000 ML INJ 1,000 ML IV SCH ×2 (04:15→11:37)
[2017-10-26] MEDS: MORPHINE SULFATE 4 MG/ML INJ IV PUSH PRN ×6 (04:16→21:22)
[2017-10-26] MEDS: HEPARIN SODIUM - SQ 10,000 UNITS/ML VIAL SQ SCH ×3 (04:16→19:42)
[2017-10-26] MEDS: VANCOMYCIN INJ 1,250 MG in SODIUM CHLOR 0.9% 250 ML INJ 250 ML IV SCH ×2 (06:12→18:15)
[2017-10-26 08:00] VITALS: BP 147/94; PULSE 77; PULSE 79; RESP 20; TEMP 97; O2SAT 95
[2017-10-26] MEDS: INSULIN ASPART SUPPLEMENTAL SCALE SQ SCH ×4 (08:00→19:42)
[2017-10-26] MEDS: SODIUM CHLORIDE 0.9% FLUSH 10 ML FLUSH IV FLUSH SCH ×2 (08:02→19:41)
[2017-10-26 08:12] LABS: AUTOMATED NEUTROPHIL # 4.5 TH/MM3 (1.8-7.7); BASOPHIL % 0.7 % (0.0-2.0); EOSINOPHIL # 0.3 TH/MM3 (0-0.4); EOSINOPHIL % 4.4 % (0.0-4.0); HEMATOCRIT 38.4 % (39.0-51.0); HEMO FLAGS DIFF FINAL; LYMPH % 22.6 % (9.0-44.0); LYMPHOCYTE # 1.6 TH/MM3 (1.0-4.8); MEAN CELL VOLUME 85.4 FL (80.0-100.0); MEAN CORPUSCULAR HEMOGLOBIN 26.7 PG (27.0-34.0); MEAN CORPUSCULAR HGB CONC 31.2 % (32.0-36.0); MONO % 7.6 % (0.0-8.0); NEUT % 64.7 % (16.0-70.0); PLATELET COUNT 168 TH/MM3 (150-450); RED CELL DISTRIBUTION WIDTH 15.9 % (11.6-17.2); WHITE BLOOD COUNT 6.9 TH/MM3 (4.0-11.0)
[2017-10-26 08:36] LABS: ALT (GPT) 30 U/L (12-78); ANION GAP 8 MEQ/L (5-15); AST (GOT) 39 U/L (15-37); BICARBONATE 19.8 MEQ/L (21.0-32.0); BLOOD UREA NITROGEN 12 MG/DL (7-18); CHLORIDE 105 MEQ/L (98-107); GLOMERULAR FILTRATION RATE 97 ML/MIN (>89); MAGNESIUM 1.7 MG/DL (1.5-2.5); SODIUM (NA) 133 MEQ/L (136-145)
[2017-10-26 08:37] LABS: ALKALINE PHOSPHATASE 96 U/L (45-117); FREE T4 1.61 NG/DL (0.76-1.46)
[2017-10-26 08:38] LABS: POTASSIUM 4.6 MEQ/L (3.5-5.1)
[2017-10-26] MEDS: INSULIN DETEMIR 100 UNITS/ML VIAL SQ SCH ×2 (08:48→19:42)
[2017-10-26] MEDS: NICOTINE 7 MG/24 HR PATCH T-DERMAL SCH (08:50)
[2017-10-26] MEDS: LISINOPRIL 20 MG TAB PO SCH (08:50)
[2017-10-26] MEDS: PANTOPRAZOLE SOD 40 MG DELAYED RELEASE TAB PO SCH (08:51)
[2017-10-26] MEDS: amLODIPine BESYLATE 5 MG TAB PO SCH (08:51)
[2017-10-26] MEDS: FUROSEMIDE 40 MG TAB PO SCH ×2 (08:51→19:41)
[2017-10-26] MEDS: POTASSIUM CHLORIDE 10 MEQ CONTROLLED RELEASE TAB PO SCH ×2 (08:51→19:43)
[2017-10-26] MEDS: ATORVASTATIN 10 MG TAB PO SCH (08:51)
[2017-10-26] MEDS: DOCUSATE SODIUM 50 MG/SENNA 8.6 MG TAB PO SCH ×2 (08:51→19:41)
[2017-10-26] MEDS: CARVEDILOL 12.5 MG TAB PO SCH ×2 (08:52→19:41)
[2017-10-26] MEDS: FOLIC ACID 1 MG TAB PO SCH (08:53)
[2017-10-26] MEDS: REMOVE OLD PATCH T-DERMAL SCH (09:00)
--- NOTE | 2017-10-26 09:06 | PD.CONS ---
History of Present Illness Service Foot and ankle surgery/Podiatry Consult Requested By Diego Campbell MD Reason for Consult Right foot osteomyelitis Primary Care Physician No Primary Care Physician Diagnoses: History of Present Illness 52yo male with past medical history negative for congestive heart failure with CHF EF of 30%, IDDM, hx of DVT on Xarelto, hypertension, dyslipidemia and GERD. Patient states he proceed to the ED for concern of right foot infection. He reports proceed to the ED twice in October for concern of increasing infection , he was given oral antibiotics which have failed to decrease swelling, redness , edema, and pain. He has noticed increased redness and swelling to the right second digit as well as right hallux. Denies N,V,F, reports night sweats. Review of Systems Constitutional: DENIES: Fever Eyes: DENIES: Blurred vision Respiratory: DENIES: Cough Cardiovascular: DENIES: Chest pain Gastrointestinal: DENIES: Nausea, Vomiting Musculoskeletal: COMPLAINS OF: Joint pain Neurologic: COMPLAINS OF: Abnormal gait Psychiatric: COMPLAINS OF: Anxiety, DENIES: Confusion Past Family Social History Allergies: Coded Allergies: *MDRO Multi-Drug Resistant Organism (Verified Adverse Reaction, Unknown, 10/25/17) MRSA (foot wound) - 09/2015 & 09/26/16 Past Medical History As reported in HPI Past Surgical History Left transmetatarsal amputation, Right digital amputations 3,4 Active Ordered Medications Current Medications Medications (Trade) Dose Ordered Sig/[place] Route Start Time Stop Time Status Last Admin (D50w (Vial) Inj) 50 ml UNSCH PRN IV PUSH 10/25/17 17:45 (Glucagon Inj) 1 mg UNSCH PRN OTHER 10/25/17 17:45 (NovoLOG SUPPLEMENTAL SCALE) 1 ACHS SLIDING SCALE SQ 10/25/17 21:00 (Catapres) 0.1 mg Q4H PRN PO 10/25/17 17:45 Pharmacy Profile Note 0 ml @ 0 mls/hr UNSCH OTHER 10/25/17 17:45 (Benadryl Inj) 25 mg Q6H PRN IV PUSH 10/25/17 17:45 (Benadryl) 50 mg Q12H PO 10/26/17 06:00 Sodium Chloride 1,000 ml @ 100 mls/hr Q10H IV 10/25/17 20:00 10/25/17 22:14 (NS Flush) 2 ml UNSCH PRN IV FLUSH 10/25/17 17:45 (NS Flush) 2 ml BID IV FLUSH 10/25/17 21:00 10/26/17 08:02 (Tylenol) 650 mg Q4H PRN PO 10/25/17 17:45 (Zofran Inj) 4 mg Q6H PRN IVP 10/25/17 17:45 10/26/17 00:55 (Compazine Supp) 25 mg Q12H PRN RECTAL 10/25/17 17:45 (Ambien) 5 mg HS PRN PO 10/25/17 17:45 (Tylenol) 650 mg Q6H PRN PO 10/25/17 17:45 (Roxicodone) 10 mg Q4H PRN PO 10/25/17 17:45 10/25/17 18:05 (Morphine Inj) 2 mg Q3H PRN IV PUSH 10/25/17 17:45 10/26/17 00:54 (Morphine Inj) 4 mg Q3H PRN IV PUSH 10/25/17 17:45 10/26/17 08:02 (Roxicodone) 5 mg Q4H PRN PO 10/25/17 17:45 (Narcan Inj) 0.4 mg UNSCH PRN IV PUSH 10/25/17 17:45 (Mariam-Colace) 1 tab BID PO 10/25/17 21:00 10/26/17 08:51 (Milk Of Magnesia Liq) 30 ml Q12H PRN PO 10/25/17 17:45 (Senokot) 17.2 mg Q12H PRN PO 10/25/17 17:45 (Dulcolax Supp) 10 mg DAILY PRN RECTAL 10/25/17 17:45 (Lactulose Liq) 30 ml DAILY PRN PO 10/25/17 17:45 Piperacillin Sod/ Tazobactam Sod 100 ml @ 200 mls/hr Q6H IV 10/26/17 00:00 10/26/17 04:15 (Heparin Inj) 5,000 units Q8H SQ 10/25/17 22:00 10/26/17 04:16 (Norvasc) 2.5 mg DAILY PO 10/26/17 09:00 10/26/17 08:51 (Lipitor) 10 mg DAILY PO 10/26/17 09:00 10/26/17 08:51 (Coreg) 25 mg Q12HR PO 10/25/17 21:00 10/26/17 08:52 (Folate) 1 mg DAILY PO 10/26/17 09:00 10/26/17 08:53 (Lasix) 40 mg BID PO 10/25/17 21:00 10/26/17 08:51 (Levemir Inj) 28 units BID SQ 10/25/17 21:00 (Prinivil) 40 mg DAILY PO 10/26/17 09:00 10/26/17 08:50 (Protonix) 40 mg DAILY PO 10/26/17 09:00 10/26/17 08:51 (KCl) 10 meq BID PO 10/25/17 21:00 10/26/17 08:51 (Habitrol 7 Mg Patch.24 Hr) 1 patch DAILY T-DERMAL 10/25/17 09:00 10/26/17 08:50 Miscellaneous Information 1 DAILY T-DERMAL 10/26/17 09:00 (Pill Splitter) 1 ea UNSCH PRN OTHER 10/25/17 19:00 (Flu (Quadrivalent) Vaccine Inj) 0.5 ml ONCE ONCE IM 10/26/17 10:00 10/26/17 10:01 (Pneumovax-23 Inj) 25 mcg ONCE ONCE IM 10/26/17 10:00 10/26/17 10:01 Vancomycin HCl 1250 mg/Sodium Chloride 262.5 ml @ 250 mls/hr Q12H IV 10/26/17 06:00 10/26/17 06:12 Miscellaneous Information SPECIFIC LAB TO BE [place]... ONCE ONCE .XX 10/27/17 05:45 10/27/17 05:46 Lactated Ringer's 1,000 ml @ 30 mls/hr Q24H PRN IV 10/26/17 01:45 10/29/17 01:44 Social History Current smoker Physical Exam Vital Signs Vital Signs Date Time Temp Pulse Resp B/P (MAP) Pulse Ox O2 Delivery O2 Flow Rate FiO2 10/26/17 00:00 97.1 79 20 149/88 (108) 96 10/25/17 20:00 83 10/25/17 20:00 97.5 81 20 151/88 (109) 96 10/25/17 19:05 18 10/25/17 17:24 96.8 87 17 132/84 (100) 98 10/25/17 11:37 98.1 84 12 157/82 (107) 100 Physical Exam GENERAL: This is a well-nourished, well-developed patient, in no apparent distress. SKIN: Cool and dry. Ulcer located to right second digit, ulcer located to right medial hallux. HEAD: Atraumatic. . EYES: Pupils equal round and reactive. ENT: Airway patent. RESPIRATORY: No labored breathing. MUSCULOSKELETAL:. No calf tenderness. Negative Homans sign bilaterally. NEUROLOGICAL: Awake and alert. Normal speech. Vasc: DP palpable 2/4, PT nonpalpable. Capillary refill to digits 1 to in 5 to all right lower extremity within normal limits. Capillary refill to transmetatarsal amputation within normal limits left foot. Edema noted to right second digit. No edema noted to right leg. Neuro: Gross sensation intact to bilateral foot. Decreased pinpoint sensation. No hyperalgesia noted bilateral foot. Derm: ulcer noted to dorsal aspect of right second digit measuring less than 1 centimeter x 1 centimeter with fibrotic base and surrounding necrosis and eschar. Erythema noted to the mariam wound area. No drainage noted, no purulent drainage noted on compression. Probe to bone noted. right hallux with medial eschar noted. No purulent drainage upon compression. Mild mariam wound erythema. No open lesions left foot. MSK: Right foot second digit PIPJ and DIPJ contracture , rigid in nature. Right foot second proximal phalanx subluxed on to second metatarsal head. Right hallux interphalangeal joint contracture, rigid in nature. Laboratory Laboratory Tests Test 10/25/17 13:00 10/25/17 19:28 10/26/17 07:35 White Blood Count 6.2 6.9 Red Blood Count 4.02 4.50 Hemoglobin 11.2 12.0 Hematocrit 33.5 38.4 Mean Corpuscular Volume 83.2 85.4 Mean Corpuscular Hemoglobin 27.9 26.7 Mean Corpuscular Hemoglobin Concent 33.5 31.2 Red Cell Distribution Width 15.7 15.9 Platelet Count 152 168 Mean Platelet Volume 9.2 9.4 Neutrophils (%) (Auto) 63.6 64.7 Lymphocytes (%) (Auto) 23.2 22.6 Monocytes (%) (Auto) 7.4 7.6 Eosinophils (%) (Auto) 5.0 4.4 Basophils (%) (Auto) 0.8 0.7 Neutrophils # (Auto) 4.0 4.5 Lymphocytes # (Auto) 1.4 1.6 Monocytes # (Auto) 0.5 0.5 Eosinophils # (Auto) 0.3 0.3 Basophils # (Auto) 0.1 0.0 CBC Comment DIFF FINAL DIFF FINAL Differential Comment Erythrocyte Sedimentation Rate 32 Blood Urea Nitrogen 16 12 Creatinine 0.84 0.83 Random Glucose 163 134 Total Protein 6.8 7.1 Albumin 2.6 2.5 Calcium Level 8.1 8.2 Alkaline Phosphatase 119 96 Aspartate Amino Transf (AST/SGOT) 22 39 Alanine Aminotransferase (ALT/SGPT) 24 30 Total Bilirubin 0.4 1.0 Sodium Level 137 133 Potassium Level 4.0 4.6 Chloride Level 105 105 Carbon Dioxide Level 27.5 19.8 Anion Gap 5 8 Estimat Glomerular Filtration Rate 96 97 C-Reactive Protein LESS THAN 0.29 Prothrombin Time 11.9 Prothromb Time International Ratio 1.2 Activated Partial Thromboplast Time 27.7 Hemoglobin A1c 9.5 Phosphorus Level 3.3 Magnesium Level 1.7 Free Thyroxine 1.61 Thyroid Stimulating Hormone 3rd Gen 4.660 Date/Time Source Procedure Growth Status 10/25/17 14:05 Blood Peripheral Aerobic Blood Culture Pending Received 10/25/17 14:05 Blood Peripheral Anaerobic Blood Culture Pending Received Result Diagram: 10/26/17 0735 10/26/17 0735 Imaging Last 72 hours Impressions Foot MRI 10/25/17 0000 Signed Impressions: Service Date/Time: Wednesday, October 25, 2017 13:30 - CONCLUSION: 1. There is abnormal signal and abnormal enhancement involving the second toe. This would be suspicious for osteomyelitis. 2. There are degenerative changes in involving the first distal phalanx with some questionable increased signal in the first proximal phalanx. However no definite abnormal enhancement is seen to suggest osteomyelitis. This may be related to degenerative type changes Greg Mazariegos MD Chest X-Ray 10/25/17 0000 Signed Impressions: Service Date/Time: Wednesday, October 25, 2017 16:57 - CONCLUSION: No acute disease. No significant change has occurred. Greg Mazariegos MD Assessment and Plan Assessment and Plan 52-year-old male with right foot second digit possible osteomyelitis and right hallux IPJ ulcer. Patient evaluated and treated with all questions answered. MRI reviewed with patient- increased signal intensity to proximal and middle phalanx of right second digit suggestive of osteomyelitis. Degenerative joint changes noted to right hallux IPJ with no underlying osteomyelitis. Discussed surgical intervention with patient to consist of right foot second digit amputation with possible second metatarsal head resection and right hallux excision of ulcer with excision of head of proximal phalanx of hallux. Patient states he is in agreement with treatment and would rather have the second digit amputated and right hallux contracture reduced to avoid spread of further infection. Patient states he will continue to cut back on smoking. increased risk of delayed wound healing was discussed with the patient secondary to smoking. Patient understands all alternatives, benefits, risks, and complications associated with procedure including but not limited to need for further surgery and risk of a more proximal infection. Will obtain or cultures. Recommend ID consult once OR cultures finalized Will order ABIs, if ABIs are normal we will proceed with surgery if not we will need a vascular consult before surgical intervention performed. Xiao Peoples DPM Oct 26, 2017 09:06
[2017-10-26] MEDS ORDERED: PNEUMOCOCCAL POLYVALENT INJ 25 MCG/0.5 ML SYR IM ONE (10:00)
[2017-10-26] MEDS ORDERED: INFLUENZA VIRUS VACCINE (QUADRIVALENT) 0.5 ML SYR IM ONE (10:00)
[2017-10-26 10:54] LABS: BLOOD, URINE SMALL (NEG); GLUCOSE,URINE NEG (NEG); KETONE, URINE TRACE mg/dL (NEG); NITRITE,URINE NEG (NEG); PH, URINE 6.5 (5.0-8.5); SQUAMOUS EPITHELIAL CELL URINE <1 /hpf (0-5); URINE COLOR YELLOW (YELLW/STRAW)
[2017-10-26 10:58] LABS: COMMENT (UR) CULT NOT INDICATED; CULTURE IF INDICATED CULT NOT INDICATED
[2017-10-26] MEDS: SODIUM CHLORIDE 0.9% FLUSH 10 ML FLUSH IV FLUSH PRN ×3 (11:09→17:20)
[2017-10-26 12:00] VITALS: BP 144/84; PULSE 74; PULSE 77; RESP 20; TEMP 96.3; O2SAT 94
--- NOTE | 2017-10-26 14:13 | HHI.PR ---
Subjective Remarks This is a pleasant 52 y/o male with CHF EF 30%, Histor of DVT on Xarelto, Hypertension, Hyperlipidemia GERD, who came to ER with worsening Right toe infection, failed outpatient antibiotic management, his DM II is been uncontrolled, MRI of the right foot was obtained and was suspicious for osteomyelitis. Seen by Podiatry specialist, Right foot second digit amputation with possible second metatarsal head resection and right hallux excision of ulcer with excision of head of proximal phalanx of hallux. Stable in his bedroom, no complaint awaiting for procedure; Objective Vital Signs Date Time Temp Pulse Resp B/P (MAP) Pulse Ox O2 Delivery O2 Flow Rate FiO2 10/26/17 12:00 96.3 77 20 144/84 (104) 94 10/26/17 08:07 18 10/26/17 08:00 97.0 79 20 147/94 (111) 95 10/26/17 00:00 97.1 79 20 149/88 (108) 96 10/25/17 20:00 83 10/25/17 20:00 97.5 81 20 151/88 (109) 96 10/25/17 19:05 18 10/25/17 17:24 96.8 87 17 132/84 (100) 98 I/O 10/25/17 10/25/17 10/25/17 10/26/17 10/26/17 10/26/17 07:00 15:00 23:00 07:00 15:00 23:00 Intake Total 1770 ml Balance 1770 ml Intake Oral 720 ml IV Total 1050 ml # Voids 2 # Bowel Movements 0 Result Diagram: 10/26/17 0735 10/26/17 0735 Imaging Last Impressions Foot MRI 10/25/17 0000 Signed Impressions: Service Date/Time: Wednesday, October 25, 2017 13:30 - CONCLUSION: 1. There is abnormal signal and abnormal enhancement involving the second toe. This would be suspicious for osteomyelitis. 2. There are degenerative changes in involving the first distal phalanx with some questionable increased signal in the first proximal phalanx. However no definite abnormal enhancement is seen to suggest osteomyelitis. This may be related to degenerative type changes Greg Mazariegos MD Chest X-Ray 10/25/17 0000 Signed Impressions: Service Date/Time: Wednesday, October 25, 2017 16:57 - CONCLUSION: No acute disease. No significant change has occurred. Greg Mazariegos MD Procedures None Other Results Laboratory Tests Test 10/25/17 13:00 10/25/17 19:28 10/26/17 07:35 10/26/17 09:46 Erythrocyte Sedimentation Rate 32 mm/hr C-Reactive Protein LESS THAN 0.29 MG/DL Prothrombin Time 11.9 SEC Prothromb Time International Ratio 1.2 RATIO Activated Partial Thromboplast Time 27.7 SEC White Blood Count 6.9 TH/MM3 Red Blood Count 4.50 MIL/MM3 Hemoglobin 12.0 GM/DL Hematocrit 38.4 % Mean Corpuscular Volume 85.4 FL Mean Corpuscular Hemoglobin 26.7 PG Mean Corpuscular Hemoglobin Concent 31.2 % Red Cell Distribution Width 15.9 % Platelet Count 168 TH/MM3 Mean Platelet Volume 9.4 FL Neutrophils (%) (Auto) 64.7 % Lymphocytes (%) (Auto) 22.6 % Monocytes (%) (Auto) 7.6 % Eosinophils (%) (Auto) 4.4 % Basophils (%) (Auto) 0.7 % Neutrophils # (Auto) 4.5 TH/MM3 Lymphocytes # (Auto) 1.6 TH/MM3 Monocytes # (Auto) 0.5 TH/MM3 Eosinophils # (Auto) 0.3 TH/MM3 Basophils # (Auto) 0.0 TH/MM3 CBC Comment DIFF FINAL Differential Comment Blood Urea Nitrogen 12 MG/DL Creatinine 0.83 MG/DL Random Glucose 134 MG/DL Total Protein 7.1 GM/DL Albumin 2.5 GM/DL Calcium Level 8.2 MG/DL Phosphorus Level 3.3 MG/DL Magnesium Level 1.7 MG/DL Alkaline Phosphatase 96 U/L Aspartate Amino Transf (AST/SGOT) 39 U/L Alanine Aminotransferase (ALT/SGPT) 30 U/L Total Bilirubin 1.0 MG/DL Sodium Level 133 MEQ/L Potassium Level 4.6 MEQ/L Chloride Level 105 MEQ/L Carbon Dioxide Level 19.8 MEQ/L Anion Gap 8 MEQ/L Estimat Glomerular Filtration Rate 97 ML/MIN Free Thyroxine 1.61 NG/DL Thyroid Stimulating Hormone 3rd Gen 4.660 uIU/ML Urine Color YELLOW Urine Turbidity CLEAR Urine pH 6.5 Urine Specific [place] 1.044 Urine Protein 300 mg/dL Urine Glucose (UA) NEG mg/dL Urine Ketones TRACE mg/dL Urine Occult Blood SMALL Urine Nitrite NEG Urine Bilirubin NEG Urine Urobilinogen 2.0 MG/DL Urine Leukocyte Esterase NEG Urine RBC 1 /hpf Urine WBC 1 /hpf Urine Squamous Epithelial Cells <1 /hpf Microscopic Urinalysis Comment CULT NOT INDICATED Objective Remarks GENERAL: This is a well-nourished, well-developed patient, in no apparent distress. Awake and alert. SKIN: No rashes, ecchymoses or lesions. Cool and dry. HEAD: Atraumatic. Normocephalic. No temporal or scalp tenderness. EYES: Pupils equal round and reactive. Extraocular motions intact. No scleral icterus. No injection or drainage. ENT: Nose without bleeding, purulent drainage or septal hematoma. Throat without erythema, tonsillar hypertrophy or exudate. Uvula midline. Airway patent. NECK: Trachea midline. No JVD or lymphadenopathy. Supple, nontender, no meningeal signs. CARDIOVASCULAR: Regular rate and rhythm without murmurs, gallops, or rubs. RESPIRATORY: Clear to auscultation. Breath sounds equal bilaterally. No wheezes , rales, or rhonchi. GASTROINTESTINAL: Abdomen soft, non-tender, nondistended. No hepato-splenomegaly , or palpable masses. No guarding. MUSCULOSKELETAL: Extremities without clubbing, cyanosis, or edema. (+)left forefoot amputation. (+)open wound on 1st and 2nd digit right foot. toe deformities. NEUROLOGICAL: Awake and alert. Able to move all extremities. No focal neurologic finding appreciated. Normal speech. Medications and IVs Current Medications Medications (Trade) Dose Ordered Sig/[place] Route Start Time Stop Time Status Last Admin (D50w (Vial) Inj) 50 ml UNSCH PRN IV PUSH 10/25/17 17:45 (Glucagon Inj) 1 mg UNSCH PRN OTHER 10/25/17 17:45 (NovoLOG SUPPLEMENTAL SCALE) 1 ACHS SLIDING SCALE SQ 10/25/17 21:00 (Catapres) 0.1 mg Q4H PRN PO 10/25/17 17:45 Pharmacy Profile Note 0 ml @ 0 mls/hr UNSCH OTHER 10/25/17 17:45 (Benadryl Inj) 25 mg Q6H PRN IV PUSH 10/25/17 17:45 (Benadryl) 50 mg Q12H PO 10/26/17 06:00 Sodium Chloride 1,000 ml @ 100 mls/hr Q10H IV 10/25/17 20:00 10/26/17 11:37 (NS Flush) 2 ml UNSCH PRN IV FLUSH 10/25/17 17:45 10/26/17 11:09 (NS Flush) 2 ml BID IV FLUSH 10/25/17 21:00 10/26/17 08:02 (Tylenol) 650 mg Q4H PRN PO 10/25/17 17:45 (Zofran Inj) 4 mg Q6H PRN IVP 10/25/17 17:45 10/26/17 11:14 (Compazine Supp) 25 mg Q12H PRN RECTAL 10/25/17 17:45 (Ambien) 5 mg HS PRN PO 10/25/17 17:45 (Tylenol) 650 mg Q6H PRN PO 10/25/17 17:45 (Roxicodone) 10 mg Q4H PRN PO 10/25/17 17:45 10/25/17 18:05 (Morphine Inj) 2 mg Q3H PRN IV PUSH 10/25/17 17:45 10/26/17 00:54 (Morphine Inj) 4 mg Q3H PRN IV PUSH 10/25/17 17:45 10/26/17 11:09 (Roxicodone) 5 mg Q4H PRN PO 10/25/17 17:45 (Narcan Inj) 0.4 mg UNSCH PRN IV PUSH 10/25/17 17:45 (Mariam-Colace) 1 tab BID PO 10/25/17 21:00 10/26/17 08:51 (Milk Of Magnesia Liq) 30 ml Q12H PRN PO 10/25/17 17:45 (Senokot) 17.2 mg Q12H PRN PO 10/25/17 17:45 (Dulcolax Supp) 10 mg DAILY PRN RECTAL 10/25/17 17:45 (Lactulose Liq) 30 ml DAILY PRN PO 10/25/17 17:45 Piperacillin Sod/ Tazobactam Sod 100 ml @ 200 mls/hr Q6H IV 10/26/17 00:00 10/26/17 11:38 (Heparin Inj) 5,000 units Q8H SQ 10/25/17 22:00 10/26/17 04:16 (Norvasc) 2.5 mg DAILY PO 10/26/17 09:00 10/26/17 08:51 (Lipitor) 10 mg DAILY PO 10/26/17 09:00 10/26/17 08:51 (Coreg) 25 mg Q12HR PO 10/25/17 21:00 10/26/17 08:52 (Folate) 1 mg DAILY PO 10/26/17 09:00 10/26/17 08:53 (Lasix) 40 mg BID PO 10/25/17 21:00 10/26/17 08:51 (Levemir Inj) 28 units BID SQ 10/25/17 21:00 (Prinivil) 40 mg DAILY PO 10/26/17 09:00 10/26/17 08:50 (Protonix) 40 mg DAILY PO 10/26/17 09:00 10/26/17 08:51 (KCl) 10 meq BID PO 10/25/17 21:00 10/26/17 08:51 (Habitrol 7 Mg Patch.24 Hr) 1 patch DAILY T-DERMAL 10/25/17 09:00 10/26/17 08:50 Miscellaneous Information 1 DAILY T-DERMAL 10/26/17 09:00 (Pill Splitter) 1 ea UNSCH PRN OTHER 10/25/17 19:00 Vancomycin HCl 1250 mg/Sodium Chloride 262.5 ml @ 250 mls/hr Q12H IV 10/26/17 06:00 10/26/17 06:12 Miscellaneous Information SPECIFIC LAB TO BE ... ONCE ONCE .XX 10/27/17 05:45 10/27/17 05:46 Lactated Ringer's 1,000 ml @ 30 mls/hr Q24H PRN IV 10/26/17 01:45 10/29/17 01:44 A/P Assessment and Plan 1. Right Diabetic Foot ulcer/Osteomyelitis, MRI right foot reviewed and shows normal signal and abnormal enhancement involving the second toe suspicious for osteomyelitis, degenerative changes involving the first distal phalanx with some questionable increased signal in the first proximal phalanx. on antibiotics Zosyn and Vancomycin Seen by Podiatry specialist, Right foot second digit amputation with possible second metatarsal head resection and right hallux excision of ulcer with excision of head of proximal phalanx of hallux. Podiatry specialist asked for ID specialist consult. 2. Chronic Systolic Heart Failure EF 30%, non decompensated, Echo 10/20/16 with EF 30%. Patient is supposed to be wearing a LifeVest, Patient scheduled to have AICD placed previously but surgery held due to infection continue Home Medicines Lisinopril 40 mg daily, Lasix 40 mg daily, Coreg 25 mg BID, Norvasc 2.5 mg daily, KlorCon 10 meq BID, Aspirin on hold for probable surgery 3. DM II continue sliding scale 4. History of Recurrent DVT , on hold Xarelto 20 mg daily for probable surgery 5. Hyperlipidemia resume Home Lipitor 6. GERD on PPIs DVT prophylaxis - Heparin sq Code Status Full code Discussed Condition With Patient and nurse. Discharge Planning Once cleared by Specialists. Diego Campbell MD Oct 26, 2017 14:13
--- NOTE | 2017-10-26 14:36 | MB ---
cc: VANITA JEAN MD DATE OF CONSULTATION: 10/26/[address] Tapia REASON FOR CONSULTATION: Osteomyelitis right foot. HISTORY OF PRESENT ILLNESS This is a 52-year-old male who was admitted to the hospital on 10/25 because of pain in his right first and second toe. The patient notes that he has had problems with the foot for a couple of weeks. He was evaluated by podiatry as well. He had the MRI of the foot yesterday which shows abnormal signal with enhancement involving the second toe suspicious for osteomyelitis. The patient also has degenerative changes involving the first distal phalanx but no definite abnormal enhancement was seen there. He was evaluated by the fingernail former and plans are to take him to surgery for right second digit amputation and also reduction of the right Iaeger contracture. The patient notes that he is having nausea. He was evaluated in the emergency department about a week ago and blood cultures were taken at the time and has no growth. He states that he had nausea and vomiting at that time. PAST MEDICAL HISTORY 1. MRSA of the left foot in 2014. 2. MRSA of the left foot in 2016. 3. MRSA of the right third toe in 2016. 4. Diabetes mellitus 5. Hypertension 6. Gastroesophageal reflux disease 7. History of deep venous thrombosis 8. Third and fourth toe amputation on the right foot 9. Transmetatarsal amputation of the left forefoot. ALLERGIES NO KNOWN DRUG ALLERGIES. MEDICATIONS 1. Norvasc 2. Lipitor. 3. Folic acid. 4. Prinivil. 5. Protonix. 6. Vancomycin. 7. Piperacillin / tazobactam 8. Levemir 9. Potassium. 10. Lasix. 11. Coreg. SOCIAL HISTORY The patient smokes four cigarettes a day. Occasional alcohol. Positive marijuana use. FAMILY HISTORY Noncontributory. REVIEW OF SYSTEMS Significant for nausea, vomiting. Pain in the right foot. Otherwise negative. PHYSICAL EXAMINATION IN GENERAL: This is a slender well-developed male in no acute distress. VITAL SIGNS: Temperature 96.3, BP 144/84, respirations 2077. HEAD, EYES, EARS, NOSE, AND THROAT: Head is atraumatic. Extraocular movements grossly intact, pupils reactive to light. No icterus. Oropharynx moist mucosa without lesions. NECK: Supple without adenopathy. LUNGS: Clear. HEART: Regular S1-S2. ABDOMEN: Benign, soft, nontender. RECTUM: Not performed. EXTREMITIES: The right second toe has an ulcer at the proximal dorsal aspect. No significant erythema but there is deformity also of the second toe and some extent of the great toe on the right. SKIN: No rash. NEUROLOGIC: Nonfocal. PSYCHIATRIC: Patient calm and cooperative. LABORATORY DATA WBC 6.9, platelet count 168, sedimentation rate 32, creatinine 0.83, estimated GFR 97, sodium 133. IMPRESSION 1. Osteomyelitis of the second toe on the right foot. 2. Diabetes mellitus. RECOMMENDATIONS 1. Continue vancomycin. 2. Continue piperacillin / tazobactam 3. Culture can be taken when the fingernail former performs surgery. 4. Further recommendations on culture can be made once information the culture become available. However if the surgeon does complete removal of the second toe. He may not need to be on antibiotics for a long period. I will follow the patient's culture and will make further recommendations upon additional information from either surgery or culture. Thank you for this consultation. Vanita Jean MD FD/roni /1:19 PM /2:16 PM
--- NOTE | 2017-10-26 15:40 | RADRPT ---
EXAM DATE/TIME: 10/25/2017 00:00 [facility] COMPARISON: No previous studies available for comparison. INDICATIONS : Osteomyelitis Right Foot TECHNIQUE: Four-cuff ankle and brachial pressures were obtained. Pulse cuff waveform tracings of the ankles were recorded, and ankle-brachial indices were calculated. PRESSURES (mmHg): Brachial (arm): Right 122 Left IV Site Ankle: Right 172 Left 152 YARELY: Right 1.41 Left 1.25 TBI: Right 1.02 PULSED CUFF WAVEFORMS: Demonstrate normal amplitude bilaterally. CONCLUSION: Unremarkable ankle brachial indices. Dl Mazariegos MD on October 26, 2017 at 15:37 Board Certified Radiologist. This report was verified electronically.
[2017-10-26 16:00] VITALS: BP 144/86; PULSE 70; PULSE 71; RESP 20; TEMP 97.1; O2SAT 95
[2017-10-26 19:53] VITALS: PULSE 70
[2017-10-26 20:00] VITALS: BP 144/87; PULSE 69; RESP 18; TEMP 96.4; O2SAT 96
[2017-10-27] VITALS (7 sets, daily range): BP systolic 143–170; BP diastolic 86–95; PULSE 65–86; RESP 18–20; TEMP 96–97.8; O2SAT 92–99
[2017-10-27] MEDS: MORPHINE SULFATE 4 MG/ML INJ IV PUSH PRN ×6 (00:14→22:45)
[2017-10-27] MEDS: PIPERACIL-TAZO 4.5 GM PREMIX 100 ML IV SCH ×4 (00:14→17:33)
[2017-10-27] MEDS: SODIUM CHLOR 0.9% 1000 ML INJ 1,000 ML IV SCH ×3 (00:15→20:28)
[2017-10-27] MEDS: diphenhydrAMINE HCL 50 MG CAP PO SCH ×2 (04:47→18:00)
[2017-10-27] MEDS: HEPARIN SODIUM - SQ 10,000 UNITS/ML VIAL SQ SCH ×3 (04:47→20:28)
[2017-10-27] MEDS: ONDANSETRON HCL 4 MG/2 ML VIAL IVP PRN ×2 (04:54→20:32)
[2017-10-27] MEDS ORDERED: PHARMACY ORDERED LAB ONE ×2 (05:45→17:45)
[2017-10-27] MEDS: VANCOMYCIN INJ 1,250 MG in SODIUM CHLOR 0.9% 250 ML INJ 250 ML IV SCH ×2 (07:36→16:53)
[2017-10-27] MEDS: INSULIN ASPART SUPPLEMENTAL SCALE SQ SCH ×4 (08:00→20:26)
[2017-10-27] MEDS: INSULIN DETEMIR 100 UNITS/ML VIAL SQ SCH ×2 (08:08→20:26)
[2017-10-27] MEDS: ATORVASTATIN 10 MG TAB PO SCH (08:37)
[2017-10-27] MEDS: FOLIC ACID 1 MG TAB PO SCH (08:38)
[2017-10-27] MEDS: LISINOPRIL 20 MG TAB PO SCH (08:38)
[2017-10-27] MEDS: POTASSIUM CHLORIDE 10 MEQ CONTROLLED RELEASE TAB PO SCH ×2 (08:38→20:27)
[2017-10-27] MEDS: CARVEDILOL 12.5 MG TAB PO SCH ×2 (08:38→20:27)
[2017-10-27] MEDS: FUROSEMIDE 40 MG TAB PO SCH ×2 (08:38→20:27)
[2017-10-27] MEDS: DOCUSATE SODIUM 50 MG/SENNA 8.6 MG TAB PO SCH ×2 (08:38→20:26)
[2017-10-27] MEDS: NICOTINE 7 MG/24 HR PATCH T-DERMAL SCH (08:39)
[2017-10-27] MEDS: PANTOPRAZOLE SOD 40 MG DELAYED RELEASE TAB PO SCH (08:39)
[2017-10-27] MEDS: REMOVE OLD PATCH T-DERMAL SCH (08:39)
[2017-10-27] MEDS: SODIUM CHLORIDE 0.9% FLUSH 10 ML FLUSH IV FLUSH SCH ×2 (08:42→20:25)
[2017-10-27] MEDS: amLODIPine BESYLATE 5 MG TAB PO SCH (08:49)
--- NOTE | 2017-10-27 09:42 | HHI.PR ---
Subjective Remarks This is a pleasant 52 y/o male with CHF EF 30%, Histor of DVT on Xarelto, Hypertension, Hyperlipidemia GERD, who came to ER with worsening Right toe infection, failed outpatient antibiotic management, his DM II is been uncontrolled, MRI of the right foot was obtained and was suspicious for osteomyelitis. Seen by Podiatry specialist, Right foot second digit amputation with possible second metatarsal head resection and right hallux excision of ulcer with excision of head of proximal phalanx of hallux. Stable in his bedroom, no complaint awaiting for procedure; 10/27: Sen by ID specialist Doctor Long, with diagnosis of Osteomyelitis of the second toe on right foot, DM recommended to continue Vancomycin and Zosyn, Culture when Podiatry perform surgery. seen in his bedroom adjusted anti-hypertensives, no nausea, vomit or diarrhea. Objective Vital Signs Date Time Temp Pulse Resp B/P (MAP) Pulse Ox O2 Delivery O2 Flow Rate FiO2 10/27/17 09:22 92 21 10/27/17 07:50 96.1 86 20 151/86 (107) 97 10/27/17 04:00 97.8 73 18 157/91 (113) 99 10/26/17 20:00 96.4 69 18 144/87 (106) 96 10/26/17 19:53 70 10/26/17 17:25 18 10/26/17 16:00 70 10/26/17 16:00 97.1 71 20 144/86 (105) 95 10/26/17 12:00 96.3 77 20 144/84 (104) 94 10/26/17 12:00 74 I/O 10/26/17 10/26/17 10/26/17 10/27/17 10/27/17 10/27/17 07:00 15:00 23:00 07:00 15:00 23:00 Intake Total 1770 ml 260 ml 1200 ml Output Total 850 ml 600 ml Balance 1770 ml -590 ml 600 ml Intake Oral 720 ml 0 ml IV Total 1050 ml 260 ml 1200 ml Output Urine Total 850 ml 400 ml Emesis 200 ml # Voids 2 4 # Bowel Movements 0 0 Result Diagram: 10/26/17 0735 10/26/17 0735 Imaging Last Impressions Foot MRI 10/25/17 0000 Signed Impressions: Service Date/Time: Wednesday, October 25, 2017 13:30 - CONCLUSION: 1. There is abnormal signal and abnormal enhancement involving the second toe. This would be suspicious for osteomyelitis. 2. There are degenerative changes in involving the first distal phalanx with some questionable increased signal in the first proximal phalanx. However no definite abnormal enhancement is seen to suggest osteomyelitis. This may be related to degenerative type changes Greg Mazariegos MD Chest X-Ray 10/25/17 0000 Signed Impressions: Service Date/Time: Wednesday, October 25, 2017 16:57 - CONCLUSION: No acute disease. No significant change has occurred. Greg Mazariegos MD Procedures None Other Results Laboratory Tests Test 10/25/17 13:00 10/25/17 19:28 10/26/17 07:35 10/26/17 09:46 Erythrocyte Sedimentation Rate 32 mm/hr C-Reactive Protein LESS THAN 0.29 MG/DL Prothrombin Time 11.9 SEC Prothromb Time International Ratio 1.2 RATIO Activated Partial Thromboplast Time 27.7 SEC White Blood Count 6.9 TH/MM3 Red Blood Count 4.50 MIL/MM3 Hemoglobin 12.0 GM/DL Hematocrit 38.4 % Mean Corpuscular Volume 85.4 FL Mean Corpuscular Hemoglobin 26.7 PG Mean Corpuscular Hemoglobin Concent 31.2 % Red Cell Distribution Width 15.9 % Platelet Count 168 TH/MM3 Mean Platelet Volume 9.4 FL Neutrophils (%) (Auto) 64.7 % Lymphocytes (%) (Auto) 22.6 % Monocytes (%) (Auto) 7.6 % Eosinophils (%) (Auto) 4.4 % Basophils (%) (Auto) 0.7 % Neutrophils # (Auto) 4.5 TH/MM3 Lymphocytes # (Auto) 1.6 TH/MM3 Monocytes # (Auto) 0.5 TH/MM3 Eosinophils # (Auto) 0.3 TH/MM3 Basophils # (Auto) 0.0 TH/MM3 CBC Comment DIFF FINAL Differential Comment Blood Urea Nitrogen 12 MG/DL Creatinine 0.83 MG/DL Random Glucose 134 MG/DL Total Protein 7.1 GM/DL Albumin 2.5 GM/DL Calcium Level 8.2 MG/DL Phosphorus Level 3.3 MG/DL Magnesium Level 1.7 MG/DL Alkaline Phosphatase 96 U/L Aspartate Amino Transf (AST/SGOT) 39 U/L Alanine Aminotransferase (ALT/SGPT) 30 U/L Total Bilirubin 1.0 MG/DL Sodium Level 133 MEQ/L Potassium Level 4.6 MEQ/L Chloride Level 105 MEQ/L Carbon Dioxide Level 19.8 MEQ/L Anion Gap 8 MEQ/L Estimat Glomerular Filtration Rate 97 ML/MIN Free Thyroxine 1.61 NG/DL Thyroid Stimulating Hormone 3rd Gen 4.660 uIU/ML Urine Color YELLOW Urine Turbidity CLEAR Urine pH 6.5 Urine Specific [place] 1.044 Urine Protein 300 mg/dL Urine Glucose (UA) NEG mg/dL Urine Ketones TRACE mg/dL Urine Occult Blood SMALL Urine Nitrite NEG Urine Bilirubin NEG Urine Urobilinogen 2.0 MG/DL Urine Leukocyte Esterase NEG Urine RBC 1 /hpf Urine WBC 1 /hpf Urine Squamous Epithelial Cells <1 /hpf Microscopic Urinalysis Comment CULT NOT INDICATED Objective Remarks GENERAL: This is a well-nourished, well-developed patient, in no apparent distress. Awake and alert. SKIN: No rashes, ecchymoses or lesions. Cool and dry. HEAD: Atraumatic. Normocephalic. No temporal or scalp tenderness. EYES: Pupils equal round and reactive. Extraocular motions intact. No scleral icterus. No injection or drainage. ENT: Nose without bleeding, purulent drainage or septal hematoma. Throat without erythema, tonsillar hypertrophy or exudate. Uvula midline. Airway patent. NECK: Trachea midline. No JVD or lymphadenopathy. Supple, nontender, no meningeal signs. CARDIOVASCULAR: Regular rate and rhythm without murmurs, gallops, or rubs. RESPIRATORY: Clear to auscultation. Breath sounds equal bilaterally. No wheezes , rales, or rhonchi. GASTROINTESTINAL: Abdomen soft, non-tender, nondistended. No hepato-splenomegaly , or palpable masses. No guarding. MUSCULOSKELETAL: Extremities without clubbing, cyanosis, or edema. (+)left forefoot amputation. (+)open wound on 1st and 2nd digit right foot. toe deformities. NEUROLOGICAL: Awake and alert. Able to move all extremities. No focal neurologic finding appreciated. Normal speech. Medications and IVs Current Medications Medications (Trade) Dose Ordered Sig/[place]ville Route Start Time Stop Time Status Last Admin (D50w (Vial) Inj) 50 ml UNSCH PRN IV PUSH 10/25/17 17:45 (Glucagon Inj) 1 mg UNSCH PRN OTHER 10/25/17 17:45 (NovoLOG SUPPLEMENTAL SCALE) 1 ACHS SLIDING SCALE SQ 10/25/17 21:00 (Catapres) 0.1 mg Q4H PRN PO 10/25/17 17:45 Pharmacy Profile Note 0 ml @ 0 mls/hr UNSCH OTHER 10/25/17 17:45 (Benadryl Inj) 25 mg Q6H PRN IV PUSH 10/25/17 17:45 (Benadryl) 50 mg Q12H PO 10/26/17 06:00 10/26/17 18:00 Sodium Chloride 1,000 ml @ 100 mls/hr Q10H IV 10/25/17 20:00 10/27/17 00:15 (NS Flush) 2 ml UNSCH PRN IV FLUSH 10/25/17 17:45 10/26/17 17:20 (NS Flush) 2 ml BID IV FLUSH 10/25/17 21:00 10/27/17 08:42 (Tylenol) 650 mg Q4H PRN PO 10/25/17 17:45 (Zofran Inj) 4 mg Q6H PRN IVP 10/25/17 17:45 10/27/17 04:54 (Compazine Supp) 25 mg Q12H PRN RECTAL 10/25/17 17:45 (Ambien) 5 mg HS PRN PO 10/25/17 17:45 (Tylenol) 650 mg Q6H PRN PO 10/25/17 17:45 (Roxicodone) 10 mg Q4H PRN PO 10/25/17 17:45 10/25/17 18:05 (Morphine Inj) 2 mg Q3H PRN IV PUSH 10/25/17 17:45 10/26/17 00:54 (Morphine Inj) 4 mg Q3H PRN IV PUSH 10/25/17 17:45 10/27/17 08:39 (Roxicodone) 5 mg Q4H PRN PO 10/25/17 17:45 (Narcan Inj) 0.4 mg UNSCH PRN IV PUSH 10/25/17 17:45 (Mariam-Colace) 1 tab BID PO 10/25/17 21:00 10/27/17 08:38 (Milk Of Magnesia Liq) 30 ml Q12H PRN PO 10/25/17 17:45 (Senokot) 17.2 mg Q12H PRN PO 10/25/17 17:45 (Dulcolax Supp) 10 mg DAILY PRN RECTAL 10/25/17 17:45 (Lactulose Liq) 30 ml DAILY PRN PO 10/25/17 17:45 Piperacillin Sod/ Tazobactam Sod 100 ml @ 200 mls/hr Q6H IV 10/26/17 00:00 10/27/17 04:47 (Heparin Inj) 5,000 units Q8H SQ 10/25/17 22:00 10/27/17 04:47 (Norvasc) 2.5 mg DAILY PO 10/26/17 09:00 10/27/17 08:49 (Lipitor) 10 mg DAILY PO 10/26/17 09:00 10/27/17 08:37 (Coreg) 25 mg Q12HR PO 10/25/17 21:00 10/27/17 08:38 (Folate) 1 mg DAILY PO 10/26/17 09:00 10/27/17 08:38 (Lasix) 40 mg BID PO 10/25/17 21:00 10/27/17 08:38 (Levemir Inj) 28 units BID SQ 10/25/17 21:00 (Prinivil) 40 mg DAILY PO 10/26/17 09:00 10/27/17 08:38 (Protonix) 40 mg DAILY PO 10/26/17 09:00 10/27/17 08:39 (KCl) 10 meq BID PO 10/25/17 21:00 10/27/17 08:38 (Habitrol 7 Mg Patch.24 Hr) 1 patch DAILY T-DERMAL 10/25/17 09:00 10/27/17 08:39 Miscellaneous Information 1 DAILY T-DERMAL 10/26/17 09:00 10/27/17 08:39 (Pill Splitter) 1 ea UNSCH PRN OTHER 10/25/17 19:00 Vancomycin HCl 1250 mg/Sodium Chloride 262.5 ml @ 250 mls/hr Q12H IV 10/26/17 06:00 10/27/17 07:36 Lactated Ringer's 1,000 ml @ 30 mls/hr Q24H PRN IV 10/26/17 01:45 10/29/17 01:44 Miscellaneous Information SPECIFIC LAB TO BE ... ONCE ONCE .XX 10/27/17 17:45 10/27/17 17:46 A/P Assessment and Plan 1. Right Diabetic Foot ulcer/Osteomyelitis, MRI right foot reviewed and shows normal signal and abnormal enhancement involving the second toe suspicious for osteomyelitis, degenerative changes involving the first distal phalanx with some questionable increased signal in the first proximal phalanx. on antibiotics Zosyn and Vancomycin Seen by Podiatry specialist, Right foot second digit amputation with possible second metatarsal head resection and right hallux excision of ulcer with excision of head of proximal phalanx of hallux. as per ID specialist to continue Vancomycin and Zosyn and following culture when Podiatry perform the Surgery. 2. Chronic Systolic Heart Failure EF 30%, non decompensated, Echo 10/20/16 with EF 30%. Patient is supposed to be wearing a LifeVest, Patient scheduled to have AICD placed previously but surgery held due to infection continue Home Medicines Lisinopril 40 mg daily, Lasix 40 mg daily, Coreg 25 mg BID, Norvasc 2.5 mg daily, KlorCon 10 meq BID, Aspirin on hold for Surgery. increased Amlodipine to 5 mg daily and will try to remove IV fluids after surgery to decrease blood pressure. 3. DM II continue sliding scale, hemoglobin A1C 9.5 4. History of Recurrent DVT , on hold Xarelto 20 mg daily for Surgery. 5. Hyperlipidemia resume Home Lipitor 6. GERD on PPIs DVT prophylaxis - Heparin sq Code Status Full code Discussed Condition With Patient and nurse. Discharge Planning Once cleared by Specialists. Diego Campbell MD Oct 27, 2017 09:42
[2017-10-27 10:42] LABS: HEMOGLOBIN A1a 1.4 %; HEMOGLOBIN A1b 2.2 %; HEMOGLOBIN LA1C 2.2 %; HEMOGLOBIN P3 4.3 %
[2017-10-27] MEDS ORDERED: PHENYLEPH/NS 1000 MCG/10 ML SYR IV ONE (12:00)
[2017-10-27] MEDS ORDERED: ePHEDrine/NS 25 MG/5 ML SYRINGE IV ONE (12:00)
[2017-10-27] MEDS ORDERED: LIDOCAINE HCL 1% PF 5 ML SYRINGE OTHER ONE (12:00)
[2017-10-27] MEDS ORDERED: MIDAZOLAM HCL 2 MG/2 ML VIAL IV ONE (12:00)
[2017-10-27] MEDS ORDERED: PROPOFOL 200 MG/20 ML AMP IV ONE (12:00)
[2017-10-27] MEDS ORDERED: PHENYLEPHRINE HCL 10 MG/ML VIAL IV ONE (12:00)
[2017-10-27] MEDS ORDERED: ONDANSETRON HCL 4 MG/2 ML VIAL IV ONE (12:00)
--- NOTE | 2017-10-27 17:08 | HHI.PR ---
Subjective Remarks Patient seen bedside preop. States he is feeling not so well because he hasn't eaten in 3 days because of having to NPO for surgery. He states he is ready to proceed with surgical intervention. Objective Vital Signs Date Time Temp Pulse Resp B/P (MAP) Pulse Ox O2 Delivery O2 Flow Rate FiO2 10/27/17 15:50 96.0 66 20 145/90 (108) 96 10/27/17 11:50 96.2 69 20 170/95 (120) 97 10/27/17 09:22 92 21 10/27/17 07:50 96.1 86 20 151/86 (107) 97 10/27/17 04:00 97.8 73 18 157/91 (113) 99 10/26/17 20:00 96.4 69 18 144/87 (106) 96 10/26/17 19:53 70 10/26/17 17:25 18 I/O 10/26/17 10/26/17 10/26/17 10/27/17 10/27/17 10/27/17 07:00 15:00 23:00 07:00 15:00 23:00 Intake Total 1770 ml 260 ml 1200 ml Output Total 850 ml 600 ml Balance 1770 ml -590 ml 600 ml Intake Oral 720 ml 0 ml IV Total 1050 ml 260 ml 1200 ml Output Urine Total 850 ml 400 ml Emesis 200 ml # Voids 2 4 # Bowel Movements 0 0 Result Diagram: 10/26/17 0735 10/27/17 1120 Imaging Last 72 hours Impressions Foot MRI 10/25/17 0000 Signed Impressions: Service Date/Time: Wednesday, October 25, 2017 13:30 - CONCLUSION: 1. There is abnormal signal and abnormal enhancement involving the second toe. This would be suspicious for osteomyelitis. 2. There are degenerative changes in involving the first distal phalanx with some questionable increased signal in the first proximal phalanx. However no definite abnormal enhancement is seen to suggest osteomyelitis. This may be related to degenerative type changes Greg Mazariegos MD Chest X-Ray 10/25/17 0000 Signed Impressions: Service Date/Time: Wednesday, October 25, 2017 16:57 - CONCLUSION: No acute disease. No significant change has occurred. Greg Mazariegos MD Procedures None Other Results Laboratory Tests Test 10/25/17 19:28 10/26/17 07:35 10/26/17 09:46 10/27/17 11:20 Prothrombin Time 11.9 SEC Prothromb Time International Ratio 1.2 RATIO Activated Partial Thromboplast Time 27.7 SEC Hemoglobin A1c 9.5 % 9.4 % White Blood Count 6.9 TH/MM3 Red Blood Count 4.50 MIL/MM3 Hemoglobin 12.0 GM/DL Hematocrit 38.4 % Mean Corpuscular Volume 85.4 FL Mean Corpuscular Hemoglobin 26.7 PG Mean Corpuscular Hemoglobin Concent 31.2 % Red Cell Distribution Width 15.9 % Platelet Count 168 TH/MM3 Mean Platelet Volume 9.4 FL Neutrophils (%) (Auto) 64.7 % Lymphocytes (%) (Auto) 22.6 % Monocytes (%) (Auto) 7.6 % Eosinophils (%) (Auto) 4.4 % Basophils (%) (Auto) 0.7 % Neutrophils # (Auto) 4.5 TH/MM3 Lymphocytes # (Auto) 1.6 TH/MM3 Monocytes # (Auto) 0.5 TH/MM3 Eosinophils # (Auto) 0.3 TH/MM3 Basophils # (Auto) 0.0 TH/MM3 CBC Comment DIFF FINAL Differential Comment Blood Urea Nitrogen 12 MG/DL Creatinine 0.83 MG/DL 0.89 MG/DL Random Glucose 134 MG/DL Total Protein 7.1 GM/DL Albumin 2.5 GM/DL Calcium Level 8.2 MG/DL Phosphorus Level 3.3 MG/DL Magnesium Level 1.7 MG/DL Alkaline Phosphatase 96 U/L Aspartate Amino Transf (AST/SGOT) 39 U/L Alanine Aminotransferase (ALT/SGPT) 30 U/L Total Bilirubin 1.0 MG/DL Sodium Level 133 MEQ/L Potassium Level 4.6 MEQ/L Chloride Level 105 MEQ/L Carbon Dioxide Level 19.8 MEQ/L Anion Gap 8 MEQ/L Estimat Glomerular Filtration Rate 97 ML/MIN 89 ML/MIN Free Thyroxine 1.61 NG/DL Thyroid Stimulating Hormone 3rd Gen 4.660 uIU/ML Urine Color YELLOW Urine Turbidity CLEAR Urine pH 6.5 Urine Specific [place] 1.044 Urine Protein 300 mg/dL Urine Glucose (UA) NEG mg/dL Urine Ketones TRACE mg/dL Urine Occult Blood SMALL Urine Nitrite NEG Urine Bilirubin NEG Urine Urobilinogen 2.0 MG/DL Urine Leukocyte Esterase NEG Urine RBC 1 /hpf Urine WBC 1 /hpf Urine Squamous Epithelial Cells <1 /hpf Microscopic Urinalysis Comment CULT NOT INDICATED Vancomycin Level Trough 25.1 MCG/ML Objective Remarks Vasc: DP palpable 2/4, PT nonpalpable. Capillary refill to digits 1 to in 5 to all right lower extremity within normal limits. Capillary refill to transmetatarsal amputation within normal limits left foot. Edema noted to right second digit. No edema noted to right leg. Neuro: Gross sensation intact to bilateral foot. Decreased pinpoint sensation. No hyperalgesia noted bilateral foot. Derm: ulcer noted to dorsal aspect of right second digit measuring less than 1 centimeter x 1 centimeter with fibrotic base and surrounding necrosis and eschar. Erythema noted to the mariam wound area. No drainage noted, no purulent drainage noted on compression. Probe to bone noted. right hallux with medial eschar noted. No purulent drainage upon compression. Mild mariam wound erythema. No open lesions left foot. MSK: Right foot second digit PIPJ and DIPJ contracture , rigid in nature. Right foot second proximal phalanx subluxed on to second metatarsal head. Right hallux interphalangeal joint contracture, rigid in nature. Medications and IVs Current Medications Medications (Trade) Dose Ordered Sig/Orville Route Start Time Stop Time Status Last Admin (D50w (Vial) Inj) 50 ml UNSCH PRN IV PUSH 10/25/17 17:45 (Glucagon Inj) 1 mg UNSCH PRN OTHER 10/25/17 17:45 (NovoLOG SUPPLEMENTAL SCALE) 1 ACHS SLIDING SCALE SQ 10/25/17 21:00 (Catapres) 0.1 mg Q4H PRN PO 10/25/17 17:45 Pharmacy Profile Note 0 ml @ 0 mls/hr UNSCH OTHER 10/25/17 17:45 (Benadryl Inj) 25 mg Q6H PRN IV PUSH 10/25/17 17:45 (Benadryl) 50 mg Q12H PO 10/26/17 06:00 10/26/17 18:00 Sodium Chloride 1,000 ml @ 100 mls/hr Q10H IV 10/25/17 20:00 10/27/17 11:44 (NS Flush) 2 ml UNSCH PRN IV FLUSH 10/25/17 17:45 10/26/17 17:20 (NS Flush) 2 ml BID IV FLUSH 10/25/17 21:00 10/27/17 08:42 (Tylenol) 650 mg Q4H PRN PO 10/25/17 17:45 (Zofran Inj) 4 mg Q6H PRN IVP 10/25/17 17:45 10/27/17 04:54 (Compazine Supp) 25 mg Q12H PRN RECTAL 10/25/17 17:45 (Ambien) 5 mg HS PRN PO 10/25/17 17:45 (Tylenol) 650 mg Q6H PRN PO 10/25/17 17:45 (Roxicodone) 10 mg Q4H PRN PO 10/25/17 17:45 10/25/17 18:05 (Morphine Inj) 2 mg Q3H PRN IV PUSH 10/25/17 17:45 10/26/17 00:54 (Morphine Inj) 4 mg Q3H PRN IV PUSH 10/25/17 17:45 10/27/17 15:37 (Roxicodone) 5 mg Q4H PRN PO 10/25/17 17:45 (Narcan Inj) 0.4 mg UNSCH PRN IV PUSH 10/25/17 17:45 (Mariam-Colace) 1 tab BID PO 10/25/17 21:00 10/27/17 08:38 (Milk Of Magnesia Liq) 30 ml Q12H PRN PO 10/25/17 17:45 (Senokot) 17.2 mg Q12H PRN PO 10/25/17 17:45 (Dulcolax Supp) 10 mg DAILY PRN RECTAL 10/25/17 17:45 (Lactulose Liq) 30 ml DAILY PRN PO 10/25/17 17:45 Piperacillin Sod/ Tazobactam Sod 100 ml @ 200 mls/hr Q6H IV 10/26/17 00:00 10/27/17 11:43 (Heparin Inj) 5,000 units Q8H SQ 10/25/17 22:00 10/27/17 04:47 (Lipitor) 10 mg DAILY PO 10/26/17 09:00 10/27/17 08:37 (Coreg) 25 mg Q12HR PO 10/25/17 21:00 10/27/17 08:38 (Folate) 1 mg DAILY PO 10/26/17 09:00 10/27/17 08:38 (Lasix) 40 mg BID PO 10/25/17 21:00 10/27/17 08:38 (Levemir Inj) 28 units BID SQ 10/25/17 21:00 (Prinivil) 40 mg DAILY PO 10/26/17 09:00 10/27/17 08:38 (Protonix) 40 mg DAILY PO 10/26/17 09:00 10/27/17 08:39 (KCl) 10 meq BID PO 10/25/17 21:00 10/27/17 08:38 (Habitrol 7 Mg Patch.24 Hr) 1 patch DAILY T-DERMAL 10/25/17 09:00 10/27/17 08:39 Miscellaneous Information 1 DAILY T-DERMAL 10/26/17 09:00 10/27/17 08:39 (Pill Splitter) 1 ea UNSCH PRN OTHER 10/25/17 19:00 Vancomycin HCl 1250 mg/Sodium Chloride 262.5 ml @ 250 mls/hr Q12H IV 10/26/17 06:00 10/27/17 07:36 Lactated Ringer's 1,000 ml @ 30 mls/hr Q24H PRN IV 10/26/17 01:45 10/29/17 01:44 (Norvasc) 5 mg DAILY PO 10/28/17 09:00 Miscellaneous Information SPECIFIC LAB TO BE ... ONCE ONCE .XX 10/28/17 05:45 10/28/17 05:46 Assessment and Plan Assessment and Plan 52-year-old male with right foot second digit possible osteomyelitis and right hallux IPJ ulcer. Patient evaluated and treated with all questions answered. To OR today for right foot second digit amputation with hallux proximal phalanx resection Consent signed Right LE radha Discussed surgical intervention with patient to consist of right foot second digit amputation with possible second metatarsal head resection and right hallux excision of ulcer with excision of head of proximal phalanx of hallux. Patient states he is in agreement with treatment and would rather have the second digit amputated and right hallux contracture reduced to avoid spread of further infection. Patient understands all alternatives, benefits, risks, and complications associated with procedure including but not limited to need for further surgery and risk of a more proximal infection. Will obtain or cultures. Recommend ID consult once OR cultures finalized. Xiao Peoples DPM Oct 27, 2017 17:08
[2017-10-27] MEDS ORDERED: ETOMIDATE 20 MG/10 ML VIAL ONE (17:09)
[2017-10-27] MEDS ORDERED: BUPIVACAINE HCL PF 0.5% 30 ML VIAL ONE (17:11)
[2017-10-27] MEDS ORDERED: VANCOMYCIN HCL 1000 MG VIAL ONE (17:11)
[2017-10-27] MEDS ORDERED: LIDOCAINE HCL 1% 50 ML VIAL ONE (17:11)
[2017-10-27] MEDS ORDERED: Post-op Orders (for Pharmacy) XX ONE (18:45)
--- NOTE | 2017-10-27 18:53 | HHI.PR ---
Immediate Post Op Note Procedure Date: Oct 27, 2017 Pre Op Diagnosis: (1) Ulcer of right foot (2) Osteomyelitis 1. Proximal phalanx second toe OM 2. Proximal phalanx hallux OM 3. IPJ contracture 2nd toe 4. IPJ contracture hallux Post Op Diagnosis: Surgeon: Xiao Peoples Bods Developer(s): none Procedure: 1. Right second digit amputation 2. Right hallux arthroplasty/resection of proximal phalanx head with excision of ulcer Findings: None Additional Information: None Complications: None Specimen(s) removed: 1. Right second digit for path 2. Right second proximal phalanx head second digit for path 3. Right first proximal phalanx head for path 4. Right second proximal phalanx head for culture Estimated blood loss: 1cc Anesthesia: General Drains: None IVF Patient to: PACU Patient Condition: Good Xiao Peoples DPM Oct 27, 2017 18:53
[2017-10-27] MEDS ORDERED: DO NOT ADM ANY ANTICOAGULANT DRUGS PRN ×2 (19:00→20:15)
--- NOTE | 2017-10-27 19:26 | MR ---
cc: SANJUANITA PLASCENCIA DPM DATE: 10/27/2017. SURGEON: Sanjuanita Plascencia DPM. COACH WIRER: None. PREOPERATIVE DIAGNOSIS: 1. Right second digit osteomyelitis. 2. Right hallux proximal phalanx osteomyelitis. 3. Right hallux hammer toe contraction at interphalangeal joint. 4. Right second digit hammer toe contraction at interphalangeal joint. POSTOPERATIVE DIAGNOSIS: 1. Right second digit osteomyelitis. 2. Right hallux proximal phalanx osteomyelitis. 3. Right hallux hammer toe contraction at interphalangeal joint. 4. Right second digit hammer toe contraction at interphalangeal joint. OPERATIVE PROCEDURE PERFORMED: 1. Second digit amputation at metatarsophalangeal joint. 2. Right hallux interphalangeal joint arthroplasty at proximal phalanx head with excision of ulcer. ANESTHESIA: General with a local infiltration of a 1:1 mixture of 0.5% Marcaine plain and 1% lidocaine plain infiltrated about the right foot in fashion. HEMOSTASIS: Ankle tourniquet set at 250 mmHg. ESTIMATED BLOOD LOSS: 1 cc. MATERIALS: 2-0 and 3-0 Prolene. INJECTABLES: None. COMPLICATIONS: None. INDICATIONS FOR THE PROCEDURE: The patient is a 52-year-old male who was admitted through the emergency department for a right foot second digit ulcer to proximal interphalangeal joint and also to right hallux medial aspect of interphalangeal joint. X-rays and MRI were taken and both were suspicious for osteomyelitis. Discussed with the patient the treatment options and the patient would like to proceed with second digit amputation of the metatarsophalangeal joint and hallux proximal phalanx head resection. The patient understands all alternatives, complications and benefits associated with the procedure. DESCRIPTION OF THE PROCEDURE IN DETAIL: The patient was brought to the operating room and placed on the operating room table. General anesthesia was then induced. ___ infiltrated with a 1:1 mix of 0.5% Marcaine plain and 1% lidocaine plain was infiltrated about the right foot. The right foot was then prepped and draped in the usual sterile manner. Prior to prepping and draping, an ankle tourniquet was placed to the patient's right ankle with Webril and foam tape. Attention was then directed to the right foot second digit where a racquet type incision was made about the metatarsophalangeal joint. This incision was deepened through skin to bone with care to retract all vital neurovascular structures. The metatarsophalangeal joint was identified and medial and lateral collateral ligaments were resected and the second digit was disarticulated from the metatarsophalangeal joint. This was passed from the field and proximal phalanx from the second digit was sent to culture and pathology. This site was copiously irrigated with normal saline. Vancomycin irrigation was applied. The site was closed with 2-0, 3-0 Prolene to skin. Attention was then directed to the right hallux where a phalangeal joint contracture was noted to the interphalangeal joint along with a medial ulcer. An elliptical incision was made and the ulcer was excised with care to retract all vital neurovascular structures. The incision was deepened through skin into bone with care to retract and preserve the extensor tendon. The proximal phalanx head was then exposed. A sagittal saw was utilized to resect proximal phalanx. The site was copiously irrigated with normal saline. 2-0 Vicryl was used to reapproximate subcutaneous tissue. 2-0 and 3-0 Prolene was used to reapproximate skin. Contracture was noted to be absent with no bony pressure points. The head of the proximal phalanx was sent to pathology for further analysis. Adaptic, 4 x 4's, Belle, AARON were all applied to the right foot. The patient tolerated the procedure and anesthesia well. Will follow bone cultures and infectious disease will recommend home antibiotics. The patient is to follow up in office in one week. MINESH Combs/ANAND /6:42 PM /7:09 PM
--- NOTE | 2017-10-27 19:29 | RADRPT ---
EXAM DATE/TIME: 10/27/2017 18:54 [facility] COMPARISON: FOOT RIGHT COMPLETE ([id number]), October 17, 2017, 20:40. INDICATIONS : Post surgery MEDICAL HISTORY : Diabetes, Anxiety. Coronary artery disease. Diabetes, Anxiety. Coronary artery disease. SURGICAL HISTORY : Spinal surgery. ENCOUNTER: Subsequent ACUITY: 4 - 6 days PAIN SCORE: 0/10 LOCATION: Right Foot FINDINGS: The patient is status post amputation of the second through fourth digits. There is a deformity at th e fifth digit with medial angulation at the fifth proximal phalanx. There is post surgical change at the distal aspect of the first proximal phalanx. An acute fracture is not seen. Vascular calcificatio ns are seen. There are prominent calcaneal spurs. CONCLUSION: Status post surgery as described above. Clifford Priest MD on October 27, 2017 at 19:26 Board Certified Radiologist. This report was verified electronically.
[2017-10-28] VITALS: BP 154/84; PULSE 65; RESP 18; TEMP 97.3; O2SAT 100
[2017-10-28] MEDS: PIPERACIL-TAZO 4.5 GM PREMIX 100 ML IV SCH ×5 (00:42→23:20)
[2017-10-28] MEDS: MORPHINE SULFATE 4 MG/ML INJ IV PUSH PRN (03:16)
[2017-10-28 04:00] VITALS: BP 144/84; PULSE 64; RESP 18; TEMP 95.5; O2SAT 97
[2017-10-28] MEDS: ONDANSETRON HCL 4 MG/2 ML VIAL IVP PRN (04:39)
[2017-10-28] MEDS ORDERED: PHARMACY ORDERED LAB ONE (05:45)
[2017-10-28] MEDS: HEPARIN SODIUM - SQ 10,000 UNITS/ML VIAL SQ SCH ×3 (06:09→21:33)
[2017-10-28] MEDS: diphenhydrAMINE HCL 50 MG CAP PO SCH ×2 (06:09→17:06)
[2017-10-28] MEDS: VANCOMYCIN INJ 1,250 MG in SODIUM CHLOR 0.9% 250 ML INJ 250 ML IV SCH ×2 (06:39→17:07)
[2017-10-28] MEDS: INSULIN ASPART SUPPLEMENTAL SCALE SQ SCH ×4 (07:27→21:00)
[2017-10-28] MEDS: SODIUM CHLOR 0.9% 1000 ML INJ 1,000 ML IV SCH ×2 (08:00→17:06)
[2017-10-28] MEDS: NICOTINE 7 MG/24 HR PATCH T-DERMAL SCH (08:07)
[2017-10-28] MEDS: REMOVE OLD PATCH T-DERMAL SCH (08:07)
[2017-10-28] MEDS: FUROSEMIDE 40 MG TAB PO SCH ×2 (08:07→19:23)
[2017-10-28] MEDS: DOCUSATE SODIUM 50 MG/SENNA 8.6 MG TAB PO SCH ×2 (08:08→19:23)
[2017-10-28] MEDS: POTASSIUM CHLORIDE 10 MEQ CONTROLLED RELEASE TAB PO SCH ×2 (08:08→19:23)
[2017-10-28] MEDS: CARVEDILOL 12.5 MG TAB PO SCH ×2 (08:08→19:24)
[2017-10-28] MEDS: PANTOPRAZOLE SOD 40 MG DELAYED RELEASE TAB PO SCH (08:08)
[2017-10-28] MEDS: FOLIC ACID 1 MG TAB PO SCH (08:08)
[2017-10-28] MEDS: amLODIPine BESYLATE 5 MG TAB PO SCH (08:08)
[2017-10-28] MEDS: ATORVASTATIN 10 MG TAB PO SCH (08:08)
[2017-10-28] MEDS: LISINOPRIL 20 MG TAB PO SCH (08:09)
[2017-10-28] MEDS: SODIUM CHLORIDE 0.9% FLUSH 10 ML FLUSH IV FLUSH SCH ×2 (08:09→19:25)
[2017-10-28] MEDS: INSULIN DETEMIR 100 UNITS/ML VIAL SQ SCH ×2 (08:10→21:00)
[2017-10-28] MEDS ORDERED: MORPHINE SULFATE 2 MG/ML INJ IV PUSH PRN ×2 (10:00)
--- NOTE | 2017-10-28 10:27 | HHI.FF ---
Face to Face Verification Diagnosis: (1) Amputated toe of left foot (2) Chronic foot ulcer (3) Non compliance with medical treatment (4) DM (diabetes mellitus), type 2, uncontrolled w/neurologic complication (5) Personal history of tobacco use, presenting hazards to health (6) Toe osteomyelitis, left (7) Toe amputation status (8) DM (diabetes mellitus) (9) Type II diabetes mellitus with neurological manifestations, uncontrolled (10) Osteomyelitis (11) Cellulitis of foot Physical Therapy Order: Evaluate and Treat, Improve ambulation, Strength and gait training Occupational Therapy Order: Evaluate and Treat, Improve ADL, Gross motor coordination, Fine motor coordination Home Health Nursing Order: Medical education Diabetic education Medication education-adverse effect Wound care and dressing changes Home Health Aide Order: To Assist In: Bathing and personal care, engineer second assistant and meal prep I have seen patient Guerrero Hu on 10/28/17. My clinical findings support the need for the requested home health care services because: Ltd mobility - disease progression Med compliance is questionable Limited ability to care for self I certify that my clinical findings support that this patient is homebound because: Post-op weakness Impaired cognitive ability/safety Unsteady gait/balance Unsafe to leave home unassisted Sharad Tapia DO Oct 28, 2017 10:27
--- NOTE | 2017-10-28 11:42 | PD.WCN.NOT ---
Wound Consult Description: Consult for WOUND MANAGEMENT of right foot second toe per Dr Tapia Communicated with: CHANTEL Huang who states that the patient had surgery late yesterday and the dressing is dry and intact and being followed by Podiatry. Recommendation: Refer to Podiatry for dressing change orders. Additional Information: Patient not seen on [address] [place] [address]. Patient is POD #1 with surgery date 10/27/17 with Right 2nd digit amputation and Right hallux arthroplasty resection of proximal phalanx head with excision of ulcer being followed by Family [facility] Div[employer] Legal Assistant Dr Peoples. [facility] [place]rien [facility] Oct 28, 2017 11:42
[2017-10-28 12:00] VITALS: BP 141/76; PULSE 67; RESP 17; TEMP 97.1; O2SAT 96
--- NOTE | 2017-10-28 13:09 | HHI.IDPN ---
Note Infectious Disease Note Patient without complaints. Post resection of 2nd digit metatarsal. Also partial hallux resection. Admitted to the hospital on 10/25 because of pain in his right first and second toe. PAST MEDICAL HISTORY 1. MRSA of the left foot in 2014. 2. MRSA of the left foot in 2015. 3. MRSA of the right third toe in 2016. 4. Diabetes mellitus 5. Hypertension 6. Gastroesophageal reflux disease 7. History of deep venous thrombosis 8. Third and fourth toe amputation on the right foot 9. Transmetatarsal amputation of the left forefoot. ALLERGIES NO KNOWN DRUG ALLERGIES. MEDICATIONS 1. Vancomycin. 2. Piperacillin / tazobactam OBJECTIVE: Vital Signs Date Time Temp Pulse Resp B/P (MAP) Pulse Ox O2 Delivery O2 Flow Rate FiO2 10/28/17 12:00 97.1 67 17 141/76 (97) 96 10/28/17 04:00 95.5 64 18 144/84 (104) 97 10/28/17 00:00 97.3 65 18 154/84 (107) 100 10/27/17 21:35 93 21 10/27/17 20:00 96.7 65 20 143/86 (105) 97 10/27/17 19:00 63 18 138/81 (100) 96 Nasal Cannula 2 10/27/17 18:45 63 18 142/80 (100) 96 Nasal Cannula 2 10/27/17 18:38 98.2 62 18 140/78 (98) 97 Nasal Cannula 2 10/27/17 15:50 96.0 66 20 145/90 (108) 96 Laboratory Tests Test 10/27/17 11:20 Creatinine 0.89 MG/DL Estimat Glomerular Filtration Rate 89 ML/MIN Microbiology Date/Time Source Procedure Growth Status 10/25/17 14:05 Blood Peripheral Aerobic Blood Culture - Preliminary NO GROWTH IN 3 DAYS Resulted 10/25/17 14:05 Blood Peripheral Anaerobic Blood Culture - Preliminary NO GROWTH IN 3 DAYS Resulted 10/25/17 14:00 Blood Peripheral Aerobic Blood Culture - Preliminary NO GROWTH IN 3 DAYS Resulted 10/25/17 14:00 Blood Peripheral Anaerobic Blood Culture - Preliminary NO GROWTH IN 3 DAYS Resulted 10/27/17 17:49 Wound Foot Fungal Smear - Final NO FUNGAL ELEMENTS SEEN. Resulted 10/27/17 17:49 Wound Foot Fungal Culture Pending Resulted 10/27/17 17:49 Wound Foot Acid Fast Stain Pending Received 10/27/17 17:49 Wound Foot Mycobacterial Culture Pending Received 10/27/17 17:49 Wound Foot Gram Stain - Final Resulted 10/27/17 17:49 Wound Foot Wound Culture Pending Resulted PHYSICAL EXAMINATION GENERAL: No acute distress. NOSE, AND THROAT: Head is atraumatic. Extraocular movements grossly intact, pupils reactive to light. No icterus. Oropharynx moist mucosa without lesions. NECK: Supple without adenopathy. LUNGS: Clear. HEART: Regular S1-S2. ABDOMEN: Benign, soft, nontender. EXTREMITIES: R. foot has surgical dressing post op. SKIN: No rash. NEUROLOGIC: Nonfocal. PSYCHIATRIC: Patient calm and cooperative. IMPRESSION 1. Osteomyelitis of the second toe on the right foot. 2. Diabetes mellitus. RECOMMENDATIONS 1. Continue vancomycin. 2. Continue piperacillin / tazobactam 3. Further recommendations after culture/pathology become available. Darek Alves MD Oct 28, 2017 13:09
[2017-10-28 16:00] VITALS: BP 133/71; PULSE 67; RESP 18; TEMP 97.3; O2SAT 95
--- NOTE | 2017-10-28 16:50 | HHI.PR ---
Subjective Remarks This is a pleasant 52 y/o male with CHF EF 30%, Histor of DVT on Xarelto, Hypertension, Hyperlipidemia GERD, who came to ER with worsening Right toe infection, failed outpatient antibiotic management, his DM II is been uncontrolled, MRI of the right foot was obtained and was suspicious for osteomyelitis. Seen by Podiatry specialist, Right foot second digit amputation with possible second metatarsal head resection and right hallux excision of ulcer with excision of head of proximal phalanx of hallux. Stable in his bedroom, no complaint awaiting for procedure; 10/27: Seen by ID specialist Doctor Long, with diagnosis of Osteomyelitis of the second toe on right foot, DM recommended to continue Vancomycin and Zosyn, Culture when Podiatry perform surgery. seen in his bedroom adjusted anti-hypertensives, no nausea, vomit or diarrhea. 10-28 had procedure with podiatry on right foot October 27 Will restart surrounding to tomorrow 20 mg by mouth daily A.m. labs Continue on vancomycin and Zosyn per infectious disease Podiatry input appreciated Objective Vitals Vital Signs Date Time Temp Pulse Resp B/P (MAP) Pulse Ox O2 Delivery O2 Flow Rate FiO2 10/28/17 16:00 97.3 67 18 133/71 (91) 95 10/28/17 12:00 97.1 67 17 141/76 (97) 96 10/28/17 04:00 95.5 64 18 144/84 (104) 97 10/28/17 00:00 97.3 65 18 154/84 (107) 100 10/27/17 21:35 93 21 10/27/17 20:00 96.7 65 20 143/86 (105) 97 10/27/17 19:00 63 18 138/81 (100) 96 Nasal Cannula 2 10/27/17 18:45 63 18 142/80 (100) 96 Nasal Cannula 2 10/27/17 18:38 98.2 62 18 140/78 (98) 97 Nasal Cannula 2 I/O 10/27/17 10/27/17 10/27/17 10/28/17 10/28/17 10/28/17 07:00 15:00 23:00 07:00 15:00 23:00 Intake Total 1200 ml 262 ml 1200 ml 350 ml Output Total 600 ml 701 ml 800 ml Balance 600 ml 262 ml 499 ml -800 ml 350 ml Intake Oral 0 ml IV Total 1200 ml 262 ml 1000 ml 350 ml Other 200 ml Output Urine Total 400 ml 700 ml 800 ml Emesis 200 ml Estimated Blood Loss 1 ml # Voids 4 # Bowel Movements 0 Result Diagram: 10/26/17 0735 10/27/17 1120 Other Results Laboratory Tests Test 10/25/17 19:28 10/26/17 07:35 10/26/17 09:46 10/27/17 11:20 Prothrombin Time 11.9 SEC Prothromb Time International Ratio 1.2 RATIO Activated Partial Thromboplast Time 27.7 SEC Hemoglobin A1c 9.5 % 9.4 % White Blood Count 6.9 TH/MM3 Red Blood Count 4.50 MIL/MM3 Hemoglobin 12.0 GM/DL Hematocrit 38.4 % Mean Corpuscular Volume 85.4 FL Mean Corpuscular Hemoglobin 26.7 PG Mean Corpuscular Hemoglobin Concent 31.2 % Red Cell Distribution Width 15.9 % Platelet Count 168 TH/MM3 Mean Platelet Volume 9.4 FL Neutrophils (%) (Auto) 64.7 % Lymphocytes (%) (Auto) 22.6 % Monocytes (%) (Auto) 7.6 % Eosinophils (%) (Auto) 4.4 % Basophils (%) (Auto) 0.7 % Neutrophils # (Auto) 4.5 TH/MM3 Lymphocytes # (Auto) 1.6 TH/MM3 Monocytes # (Auto) 0.5 TH/MM3 Eosinophils # (Auto) 0.3 TH/MM3 Basophils # (Auto) 0.0 TH/MM3 CBC Comment DIFF FINAL Differential Comment Blood Urea Nitrogen 12 MG/DL Creatinine 0.83 MG/DL 0.89 MG/DL Random Glucose 134 MG/DL Total Protein 7.1 GM/DL Albumin 2.5 GM/DL Calcium Level 8.2 MG/DL Phosphorus Level 3.3 MG/DL Magnesium Level 1.7 MG/DL Alkaline Phosphatase 96 U/L Aspartate Amino Transf (AST/SGOT) 39 U/L Alanine Aminotransferase (ALT/SGPT) 30 U/L Total Bilirubin 1.0 MG/DL Sodium Level 133 MEQ/L Potassium Level 4.6 MEQ/L Chloride Level 105 MEQ/L Carbon Dioxide Level 19.8 MEQ/L Anion Gap 8 MEQ/L Estimat Glomerular Filtration Rate 97 ML/MIN 89 ML/MIN Free Thyroxine 1.61 NG/DL Thyroid Stimulating Hormone 3rd Gen 4.660 uIU/ML Urine Color YELLOW Urine Turbidity CLEAR Urine pH 6.5 Urine Specific [place] 1.044 Urine Protein 300 mg/dL Urine Glucose (UA) NEG mg/dL Urine Ketones TRACE mg/dL Urine Occult Blood SMALL Urine Nitrite NEG Urine Bilirubin NEG Urine Urobilinogen 2.0 MG/DL Urine Leukocyte Esterase NEG Urine RBC 1 /hpf Urine WBC 1 /hpf Urine Squamous Epithelial Cells <1 /hpf Microscopic Urinalysis Comment CULT NOT INDICATED Vancomycin Level Trough 25.1 MCG/ML Test 10/28/17 11:05 Vancomycin Level Trough 28.0 MCG/ML Imaging Last Impressions Foot X-Ray 10/27/17 0000 Signed Impressions: Service Date/Time: Friday, October 27, 2017 18:54 - CONCLUSION: Status post surgery as described above. Clifford Priest MD Foot MRI 10/25/17 0000 Signed Impressions: Service Date/Time: Wednesday, October 25, 2017 13:30 - CONCLUSION: 1. There is abnormal signal and abnormal enhancement involving the second toe. This would be suspicious for osteomyelitis. 2. There are degenerative changes in involving the first distal phalanx with some questionable increased signal in the first proximal phalanx. However no definite abnormal enhancement is seen to suggest osteomyelitis. This may be related to degenerative type changes Greg Mazariegos MD Chest X-Ray 10/25/17 0000 Signed Impressions: Service Date/Time: Wednesday, October 25, 2017 16:57 - CONCLUSION: No acute disease. No significant change has occurred. Greg Mazariegos MD Objective Remarks GENERAL: Awake alert oriented talkative and cooperative. SKIN: Warm and dry. Right foot is dressed --multiple tattoos HEAD: Atraumatic. Normocephalic. EYES: Pupils equal and round. No scleral icterus. No injection or drainage. Extraocular muscles intact ENT: No nasal bleeding or discharge. Mucous membranes pink and moist. Tongue is midline NECK: Trachea midline. No JVD. Supple CARDIOVASCULAR: IRRegular rate and rhythm. S1 and S2 no S3 or S4 RESPIRATORY: No accessory muscle use. Clear to auscultation. Breath sounds equal bilaterally. GASTROINTESTINAL: Abdomen soft, non-tender, nondistended. Hepatic and splenic margins not palpable. MUSCULOSKELETAL: Extremities without clubbing, cyanosis, or edema. No obvious deformities. Left foot has a TMA-- right foot is dressed NEUROLOGICAL: Awake and alert. No obvious cranial nerve deficits. Motor grossly within normal limits. 4out of 5 muscle strength in the arms and legs. Normal speech. PSYCHIATRIC: Appropriate mood and affect; insight and judgment normal. Procedures DATE: 10/27/2017. SURGEON: Xiao Peoplse DPM. BULB GRADER: None. PREOPERATIVE DIAGNOSIS: 1. Right second digit osteomyelitis. 2. Right hallux proximal phalanx osteomyelitis. 3. Right hallux hammer toe contraction at interphalangeal joint. 4. Right second digit hammer toe contraction at interphalangeal joint. POSTOPERATIVE DIAGNOSIS: 1. Right second digit osteomyelitis. 2. Right hallux proximal phalanx osteomyelitis. 3. Right hallux hammer toe contraction at interphalangeal joint. 4. Right second digit hammer toe contraction at interphalangeal joint. OPERATIVE PROCEDURE PERFORMED: 1. Second digit amputation at metatarsophalangeal joint. 2. Right hallux interphalangeal joint arthroplasty at proximal phalanx head with excision of ulcer. ANESTHESIA: General with a local infiltration of a 1:1 mixture of 0.5% Marcaine plain and 1% lidocaine plain infiltrated about the right foot in fashion. HEMOSTASIS: Ankle tourniquet set at 250 mmHg. ESTIMATED BLOOD LOSS: 1 cc. MATERIALS: 2-0 and 3-0 Prolene. INJECTABLES: None. COMPLICATIONS: None. Medications and IVs Current Medications Gadodiamide (Omniscan Pf Inj) 14 ml STK-MED ONCE IVCONTRAST Last administered on 10/25/17 11:36; Start 10/25/17 at 11:36; Stop 10/25/17 at 13:59; Status DC Morphine Sulfate (Morphine Inj) 4 mg ONCE ONCE IV PUSH Last administered on 14:25; Start 10/25/17 at 14:30; Stop 10/25/17 at 14:31; Status DC Piperacillin Sod/ Tazobactam Sod 100 ml @ 200 mls/hr ONCE ONCE IV Last administered on 10/25/17 17:52; Start 10/25/17 at 15:30; Stop 10/25/17 at 15 :59; Status DC Dextrose (D50w (Vial) Inj) 50 ml UNSCH PRN IV PUSH HYPOGLYCEMIA-SEE COMMENTS; Start 10/25/17 at 17:45 Glucagon (Glucagon Inj) 1 mg UNSCH PRN OTHER HYPOGLYCEMIA-SEE COMMENTS; Start 10/25/17 at 17:45 Insulin Aspart (NovoLOG SUPPLEMENTAL SCALE) 1 ACHS SLIDING SCALE SQ ; Start at 21:00 Clonidine (Catapres) 0.1 mg Q4H PRN PO SBP>160, DBP>90; Start 10/25/17 at 17: 45 Pharmacy Profile Note 0 ml @ 0 mls/hr UNSCH OTHER ; Start 10/25/17 at 17:45 Vancomycin HCl 1000 mg/Sodium Chloride 250 ml @ 250 mls/hr ONCE ONCE IV Last administered on 10/25/17 21:54; Start 10/25/17 at 20:00; Stop 10/25/17 at 20 :59; Status DC Diphenhydramine HCl (Benadryl Inj) 25 mg Q6H PRN IV PUSH ALLERGIC REACTION; Start 10/25/17 at 17:45 Diphenhydramine HCl (Benadryl) 50 mg Q12H PO Last administered on 10/28/17 06 :09; Start 10/26/17 at 06:00 Sodium Chloride 1,000 ml @ 100 mls/hr Q10H IV Last administered on 10/27/17 20:28; Start 10/25/17 at 20:00 Sodium Chloride (NS Flush) 2 ml UNSCH PRN IV FLUSH FLUSH AFTER USING IV ACCESS Last administered on 10/26/17 17:20; Start 10/25/17 at 17:45 Sodium Chloride (NS Flush) 2 ml BID IV FLUSH Last administered on 10/27/17 08 :42; Start 10/25/17 at 21:00 Acetaminophen (Tylenol) 650 mg Q4H PRN PO TEMP > 100.4; Start 10/25/17 at 17: 45 Ondansetron HCl (Zofran Inj) 4 mg Q6H PRN IVP NAUSEA OR VOMITING Last administered on 10/28/17 04:39; Start 10/25/17 at 17:45 Prochlorperazine (Compazine Supp) 25 mg Q12H PRN RECTAL NAUSEA OR VOMITING; Start 10/25/17 at 17:45 Zolpidem Tartrate (Ambien) 5 mg HS PRN PO INSOMNIA; Start 10/25/17 at 17:45 Heparin Sodium (Porcine) (Heparin Inj) 5,000 units Q12H SQ ; Start 10/25/17 at 17:45; Stop 10/25/17 at 17:50; Status DC Acetaminophen (Tylenol) 650 mg Q6H PRN PO PAIN SCALE 1 TO 2; Start 10/25/17 at 17:45 Oxycodone HCl (Roxicodone) 10 mg Q4H PRN PO PAIN SCALE 6 TO 10 Last administered on 10/28/17 12:32; Start 10/25/17 at 17:45 Morphine Sulfate (Morphine Inj) 2 mg Q3H PRN IV PUSH Pain 3-5; if unable to take PO Last administered on 10/26/17 00:54; Start 10/25/17 at 17:45; Stop 10/28/17 at 09:46; Status DC Morphine Sulfate (Morphine Inj) 4 mg Q3H PRN IV PUSH Pain 6-10;if unable to take PO Last administered on 10/28/17 03:16; Start 10/25/17 at 17:45; Stop 10/28/17 at 09:46; Status DC Oxycodone HCl (Roxicodone) 5 mg Q4H PRN PO PAIN SCALE 3 TO 5; Start 10/25/17 at 17:45 Naloxone HCl (Narcan Inj) 0.4 mg UNSCH PRN IV PUSH SEE LABEL COMMENTS; Start 10/25/17 at 17:45 Senna/Docusate Sodium (Mariam-Colace) 1 tab BID PO Last administered on 08:08; Start 10/25/17 at 21:00 Magnesium Hydroxide (Milk Of Magnesia Liq) 30 ml Q12H PRN PO Mild constipation ; Start 10/25/17 at 17:45 Sennosides (Senokot) 17.2 mg Q12H PRN PO Moderate constipation; Start at 17:45 Bisacodyl (Dulcolax Supp) 10 mg DAILY PRN RECTAL SEVERE CONSITIPATION; Start 10/25/17 at 17:45 Lactulose (Lactulose Liq) 30 ml DAILY PRN PO SEVERE CONSITIPATION; Start 10/25 at 17:45 Piperacillin Sod/ Tazobactam Sod 100 ml @ 200 mls/hr Q6H IV Last administered on 10/28/17 12:32; Start 10/26/17 at 00:00 Heparin Sodium (Porcine) (Heparin Inj) 5,000 units Q8H SQ Last administered on 10/28/17 12:32; Start 10/25/17 at 22:00 Amlodipine Besylate (Norvasc) 2.5 mg DAILY PO Last administered on 10/27/17 08:49; Start 10/26/17 at 09:00; Stop 10/27/17 at 13:07; Status DC Atorvastatin Calcium (Lipitor) 10 mg DAILY PO Last administered on 10/28/17 08:08; Start 10/26/17 at 09:00 Carvedilol (Coreg) 25 mg Q12HR PO Last administered on 10/28/17 08:08; Start 10/25/17 at 21:00 Folic Acid (Folate) 1 mg DAILY PO Last administered on 10/28/17 08:08; Start 10/26/17 at 09:00 Furosemide (Lasix) 40 mg BID PO Last administered on 10/28/17 08:07; Start 10/25/17 at 21:00 Insulin Detemir (Levemir Inj) 28 units BID SQ Last administered on 10/28/17 08:10; Start 10/25/17 at 21:00 Lisinopril (Prinivil) 40 mg DAILY PO Last administered on 10/28/17 08:09; Start 10/26/17 at 09:00 Pantoprazole Sodium (Protonix) 40 mg DAILY PO Last administered on 10/28/17 08:08; Start 10/26/17 at 09:00 Potassium Chloride (KCl) 10 meq BID PO Last administered on 10/28/17 08:08; Start 10/25/17 at 21:00 Nicotine (Habitrol 7 Mg Patch.24 Hr) 1 patch DAILY T-DERMAL Last administered on 10/28/17 08:07; Start 10/25/17 at 09:00 Miscellaneous Information 1 DAILY T-DERMAL Last administered on 10/27/17 08: 39; Start 10/26/17 at 09:00 Miscellaneous (Pill Splitter) 1 ea UNSCH PRN OTHER SEE LABEL COMMENTS; Start 10/25/17 at 19:00 Diphenhydramine HCl (Benadryl) 50 mg ONCE ONCE PO Last administered on 21:54; Start 10/25/17 at 20:00; Stop 10/25/17 at 20:01; Status DC Influenza Virus Vaccine (Flu (Quadrivalent) Vaccine Inj) 0.5 ml ONCE ONCE IM ; Start 10/26/17 at 10:00; Stop 10/26/17 at 10:01; Status DC Pneumococcal Polyvalent Vaccine (Pneumovax-23 Inj) 25 mcg ONCE ONCE IM ; Start 10/26/17 at 10:00; Stop 10/26/17 at 10:01; Status DC Vancomycin HCl 1250 mg/Sodium Chloride 262.5 ml @ 250 mls/hr Q12H IV Last administered on 10/28/17 06:39; Start 10/26/17 at 06:00 Miscellaneous Information SPECIFIC LAB TO BE [place]... ONCE ONCE .XX ; Start at 05:45; Stop 10/27/17 at 05:46; Status DC Lactated Ringer's 1,000 ml @ 30 mls/hr Q24H PRN IV SEE LABEL COMMENTS; Start 10/26/17 at 01:45; Stop 10/27/17 at 20:05; Status DC Miscellaneous Information SPECIFIC LAB TO BE [place]... ONCE ONCE .XX ; Start at 17:45; Stop 10/27/17 at 17:46; Status Cancel Amlodipine Besylate (Norvasc) 5 mg DAILY PO Last administered on 10/28/17 08: 08; Start 10/28/17 at 09:00 Miscellaneous Information SPECIFIC LAB TO BE [facility]... ONCE ONCE .XX Last administered on 10/28/17 05:45; Start 10/28/17 at 05:45; Stop 10/28/17 at 05 :46; Status DC Etomidate (Amidate Inj) 20 mg STK-MED ONCE .ROUTE ; Start 10/27/17 at 17:09; Stop 10/27/17 at 17:10; Status DC Vancomycin HCl (Vancomycin Inj) 1,000 mg STK-MED ONCE .ROUTE Last administered on 10/27/17 18:18; Start 10/27/17 at 17:11; Stop 10/27/17 at 17:12; Status DC Bupivacaine HCl (Marcaine Pf 0.5% Inj) 30 ml STK-MED ONCE .ROUTE Last administered on 10/27/17t 17:36; Start 10/27/17 at 17:11; Stop 10/27/17 at 17 :12; Status DC Lidocaine HCl (Xylocaine 1% Inj (50 ml)) 50 ml STK-MED ONCE .ROUTE Last administered on 10/27/17t 17:36; Start 10/27/17 at 17:11; Stop 10/27/17 at 17 :12; Status DC Miscellaneous Information (Post-op Orders (for Pharmacy)) STAT ONCE XX ; Start 10/27/17 at 18:45; Stop 10/27/17 at 18:46; Status DC Miscellaneous Information ALL NURSING DEPARTME... UNSCH PRN .XX SEE LABEL COMMENTS; Start 10/27/17 at 19:00; Stop 10/28/17 at 18:59 Miscellaneous Information ALL NURSING DEPARTME... UNSCH PRN .XX SEE LABEL COMMENTS; Start 10/27/17 at 20:15; Stop 10/28/17 at 20:14 Morphine Sulfate (Morphine Inj) 2 mg Q3H PRN IV PUSH Pain 3-5; if unable to take PO; Start 10/28/17 at 10:00 Morphine Sulfate (Morphine Inj) 4 mg Q3H PRN IV PUSH Pain 6-10;if unable to take PO; Start 10/28/17 at 10:00 Miscellaneous Information SPECIFIC LAB TO BE ... ONCE ONCE .XX ; Start at 17:45; Stop 10/29/17 at 17:46 A/P Assessment and Plan 1. Right Diabetic Foot ulcer/Osteomyelitis, MRI right foot reviewed and shows normal signal and abnormal enhancement involving the second toe suspicious for osteomyelitis, degenerative changes involving the first distal phalanx with some questionable increased signal in the first proximal phalanx. on antibiotics Zosyn and Vancomycin Seen by Podiatry specialist, Right foot second digit amputation with possible second metatarsal head resection and right hallux excision of ulcer with excision of head of proximal phalanx of hallux. as per ID specialist to continue Vancomycin and Zosyn and following culture when Podiatry perform the Surgery. --Status post procedure with podiatry on October 27 2. Chronic Systolic Heart Failure EF 30%, non decompensated, Echo 10/20/16 with EF 30%. Patient is supposed to be wearing a LifeVest, Patient scheduled to have AICD placed previously but surgery held due to infection continue Home Medicines Lisinopril 40 mg daily, Lasix 40 mg daily, Coreg 25 mg BID, Norvasc 2.5 mg daily, KlorCon 10 meq BID, Aspirin on hold for Surgery. increased Amlodipine to 5 mg daily and will try to remove IV fluids after surgery to decrease blood pressure. 3. DM II continue sliding scale, hemoglobin A1C 9.5 4. History of Recurrent DVT , on hold Xarelto 20 mg daily for Surgery. 5. Hyperlipidemia resume Home Lipitor 6. GERD on PPIs Malignant medical noncompliance Start Xarelto tomorrow DVT prophylaxis - Heparin sq Discharge Planning Once clearance by podiatry and infectious disease Sharad Tapia DO Oct 28, 2017 16:50
[2017-10-28 19:48] VITALS: PULSE 67
[2017-10-28 20:04] VITALS: BP 142/79; PULSE 79; RESP 18; TEMP 97.2; O2SAT 97
--- NOTE | 2017-10-28 20:24 | PD.POD ---
Subjective Podiatric Problems s/p 1. Right second digit amputation 2. Right hallux arthroplasty/resection of proximal phalanx head with excision of ulcer with Dr Peoples, MARILOU 10/27/17 Past Med/Surg/Social History Past Medical History Endocrine: REPORTS HX OF: Diabetes mellitus Cardiovascular: REPORTS HX OF: Hypertension Musculoskeletal: REPORTS HX OF: Other musculoskeletal hx Past Surgical History Breast: DENIES HX OF: Mastectomy, bilateral, Mastectomy, left Social History Smoking Status: Current Every Day Smoker Objective Vital Signs Vital Signs Date Time Temp Pulse Resp B/P (MAP) Pulse Ox O2 Delivery O2 Flow Rate FiO2 10/28/17 20:04 97.2 79 18 142/79 (100) 97 10/28/17 16:00 97.3 67 18 133/71 (91) 95 10/28/17 12:00 97.1 67 17 141/76 (97) 96 10/28/17 04:00 95.5 64 18 144/84 (104) 97 10/28/17 00:00 97.3 65 18 154/84 (107) 100 10/27/17 21:35 93 21 Coded Allergies: acetaminophen (Verified Allergy, Mild, Hives, 10/27/17) amoxicillin (Verified Allergy, Mild, Hives, 10/27/17) oxycodone (Verified Allergy, Mild, Hives, 10/27/17) *MDRO Multi-Drug Resistant Organism (Verified Adverse Reaction, Unknown, 10/25/17) MRSA (foot wound) - 09/2015 & 09/26/16 Other Results Pathology pending from surgery. Objective Remarks Microbiology Date/Time Source Procedure Growth Status 10/25/17 14:05 Blood Peripheral Aerobic Blood Culture - Preliminary NO GROWTH IN 3 DAYS Resulted 10/25/17 14:05 Blood Peripheral Anaerobic Blood Culture - Preliminary NO GROWTH IN 3 DAYS Resulted 10/27/17 17:49 Wound Foot Fungal Smear - Final NO FUNGAL ELEMENTS SEEN. Resulted 10/27/17 17:49 Wound Foot Fungal Culture Pending Resulted Physical Exam Remarks Bandage intact, clean, dry to right foot Assessment & Plan A/P s/p 1. Right second digit amputation 2. Right hallux arthroplasty/resection of proximal phalanx head with excision of ulcer with Dr Peoples, DOS 10/27/17 Keep bandage clean and dry awaiting surgical cultures/pathology Weightbearing as tolerated in surgical shoe Right foot Follow up with Dr Peoples in 1 week. Sue Cheng DPM Oct 28, 2017 20:24
[2017-10-29] MEDS: SODIUM CHLOR 0.9% 1000 ML INJ 1,000 ML IV SCH ×3 (03:34→22:20)
[2017-10-29] MEDS: VANCOMYCIN INJ 1,250 MG in SODIUM CHLOR 0.9% 250 ML INJ 250 ML IV SCH ×2 (05:38→18:47)
[2017-10-29] MEDS: PIPERACIL-TAZO 4.5 GM PREMIX 100 ML IV SCH ×2 (05:38→11:49)
[2017-10-29] MEDS: diphenhydrAMINE HCL 50 MG CAP PO SCH ×2 (05:38→18:42)
[2017-10-29 08:00] VITALS: BP 121/74; PULSE 64; RESP 17; TEMP 95.6; O2SAT 96
[2017-10-29] MEDS: INSULIN ASPART SUPPLEMENTAL SCALE SQ SCH ×4 (08:00→20:49)
[2017-10-29] MEDS: SODIUM CHLORIDE 0.9% FLUSH 10 ML FLUSH IV FLUSH SCH ×2 (09:00→20:46)
[2017-10-29] MEDS: REMOVE OLD PATCH T-DERMAL SCH (09:00)
[2017-10-29] MEDS: POTASSIUM CHLORIDE 10 MEQ CONTROLLED RELEASE TAB PO SCH ×2 (09:00→20:37)
[2017-10-29] MEDS: INSULIN DETEMIR 100 UNITS/ML VIAL SQ SCH ×2 (09:00→20:49)
[2017-10-29] MEDS: ONDANSETRON HCL 4 MG/2 ML VIAL IVP PRN (10:08)
--- NOTE | 2017-10-29 10:25 | HHI.FF ---
Face to Face Verification Diagnosis: (1) Amputated toe of left foot (2) DM (diabetes mellitus), type 2, uncontrolled w/neurologic complication (3) Non compliance with medical treatment (4) Chronic foot ulcer (5) Personal history of tobacco use, presenting hazards to health (6) Toe osteomyelitis, left (7) Toe amputation status (8) DM (diabetes mellitus) (9) Type II diabetes mellitus with neurological manifestations, uncontrolled Home Health Nursing Order: Medication education-adverse effect Nursing assessment with vital signs Market Development Director Order: To Evaluate: Living conditions/environment, Support services Order: To Provide: Long range planning, Community services I have seen patient Guerrero Hu on 10/29/17. My clinical findings support the need for the requested home health care services because: Ltd mobility - disease progression Med compliance is questionable Limited ability to care for self I certify that my clinical findings support that this patient is homebound because: Post-op weakness Unsteady gait/balance Sharad Tapia DO Oct 29, 2017 10:25
[2017-10-29 11:17] LABS: AUTOMATED NEUTROPHIL # 5.8 TH/MM3 (1.8-7.7); BASOPHIL % 0.4 % (0.0-2.0); EOSINOPHIL # 0.3 TH/MM3 (0-0.4); EOSINOPHIL % 3.5 % (0.0-4.0); HEMATOCRIT 36.3 % (39.0-51.0); HEMO FLAGS DIFF FINAL; LYMPH % 13.1 % (9.0-44.0); LYMPHOCYTE # 1.1 TH/MM3 (1.0-4.8); MEAN CELL VOLUME 83.3 FL (80.0-100.0); MEAN CORPUSCULAR HEMOGLOBIN 27.6 PG (27.0-34.0); MEAN CORPUSCULAR HGB CONC 33.1 % (32.0-36.0); MONO % 10.6 % (0.0-8.0); NEUT % 72.4 % (16.0-70.0); PLATELET COUNT 183 TH/MM3 (150-450); RED BLOOD COUNT 4.36 MIL/MM3 (4.50-5.90); WHITE BLOOD COUNT 8.1 TH/MM3 (4.0-11.0)
[2017-10-29 11:48] LABS: BICARBONATE 27.7 MEQ/L (21.0-32.0); CALCIUM-PROTEIN CORRECTED 7.9 MG/DL (8.5-10.1); MAGNESIUM 1.5 MG/DL (1.5-2.5); POTASSIUM 3.1 MEQ/L (3.5-5.1); TOTAL BILIRUBIN ADULT 0.5 MG/DL (0.2-1.0)
[2017-10-29 12:00] VITALS: BP 126/76; PULSE 17; RESP 17; TEMP 96.5; O2SAT 97
--- NOTE | 2017-10-29 12:48 | HHI.IDPN ---
Note Infectious Disease Note Patient complains of nausea. Post resection of 2nd digit metatarsal. Also partial hallux resection. Wound has serous-bloody drainage at the 2nd toe resected site. Erythema at the r. foot at the great toe and around the incision at second toe. Vancomycin trough 28. Admitted to the hospital on 10/25 because of pain in his right first and second toe. PAST MEDICAL HISTORY 1. MRSA of the left foot in 2014. 2. MRSA of the left foot in 2016. 3. MRSA of the right third toe in 2016. 4. Diabetes mellitus 5. Hypertension 6. Gastroesophageal reflux disease 7. History of deep venous thrombosis 8. Third and fourth toe amputation on the right foot 9. Transmetatarsal amputation of the left forefoot. ALLERGIES NO KNOWN DRUG ALLERGIES. MEDICATIONS 1. Vancomycin. 2. Piperacillin / tazobactam OBJECTIVE: Vital Signs Date Time Temp Pulse Resp B/P (MAP) Pulse Ox O2 Delivery O2 Flow Rate FiO2 10/29/17 08:00 95.6 64 17 121/74 (90) 96 10/29/17 04:32 18 10/28/17 20:04 97.2 79 18 142/79 (100) 97 10/28/17 19:48 67 10/28/17 16:00 97.3 67 18 133/71 (91) 95 Laboratory Tests Test 10/29/17 09:51 White Blood Count 8.1 TH/MM3 Red Blood Count 4.36 MIL/MM3 Hemoglobin 12.0 GM/DL Hematocrit 36.3 % Mean Corpuscular Volume 83.3 FL Mean Corpuscular Hemoglobin 27.6 PG Mean Corpuscular Hemoglobin Concent 33.1 % Red Cell Distribution Width 16.0 % Platelet Count 183 TH/MM3 Mean Platelet Volume 9.4 FL Neutrophils (%) (Auto) 72.4 % Lymphocytes (%) (Auto) 13.1 % Monocytes (%) (Auto) 10.6 % Eosinophils (%) (Auto) 3.5 % Basophils (%) (Auto) 0.4 % Neutrophils # (Auto) 5.8 TH/MM3 Lymphocytes # (Auto) 1.1 TH/MM3 Monocytes # (Auto) 0.9 TH/MM3 Eosinophils # (Auto) 0.3 TH/MM3 Basophils # (Auto) 0.0 TH/MM3 CBC Comment DIFF FINAL Differential Comment Laboratory Tests Test 10/29/17 09:51 Blood Urea Nitrogen 8 MG/DL Creatinine 0.89 MG/DL Random Glucose 60 MG/DL Total Protein 6.1 GM/DL Albumin 2.1 GM/DL Calcium Level 7.4 MG/DL Phosphorus Level 1.9 MG/DL Magnesium Level 1.5 MG/DL Alkaline Phosphatase 74 U/L Aspartate Amino Transf (AST/SGOT) 52 U/L Alanine Aminotransferase (ALT/SGPT) 71 U/L Total Bilirubin 0.5 MG/DL Sodium Level 137 MEQ/L Potassium Level 3.1 MEQ/L Chloride Level 102 MEQ/L Carbon Dioxide Level 27.7 MEQ/L Anion Gap 7 MEQ/L Estimat Glomerular Filtration Rate 89 ML/MIN Protein Corrected Calcium 7.9 MG/DL IMAGING: Foot X-Ray 10/27/17 0000 Signed Impressions: Service Date/Time: Friday, October 27, 2017 18:54 - CONCLUSION: Status post surgery as described above. Clifford Priest MD Foot MRI 10/25/17 0000 Signed Impressions: Service Date/Time: Wednesday, October 25, 2017 13:30 - CONCLUSION: 1. There is abnormal signal and abnormal enhancement involving the second toe. This would be suspicious for osteomyelitis. 2. There are degenerative changes in involving the first distal phalanx with some questionable increased signal in the first proximal phalanx. However no definite abnormal enhancement is seen to suggest osteomyelitis. This may be related to degenerative type changes Greg Mazariegos MD Chest X-Ray 10/25/17 0000 Signed Impressions: Service Date/Time: Wednesday, October 25, 2017 16:57 - CONCLUSION: No acute disease. No significant change has occurred. Greg Mazariegos MD PHYSICAL EXAMINATION GENERAL: No acute distress. NOSE, AND THROAT: Head is atraumatic. Extraocular movements grossly intact, pupils reactive to light. No icterus. Oropharynx moist mucosa without lesions. NECK: Supple without adenopathy. LUNGS: Clear. HEART: Regular S1-S2. ABDOMEN: Benign, soft, nontender. EXTREMITIES: R. foot has surgical dressing post op. serous-bloody drainage at the 2nd toe resected site, erythema at the r. foot at the great toe and around the incision at second toe. SKIN: No rash. NEUROLOGIC: Nonfocal. PSYCHIATRIC: Patient calm and cooperative. IMPRESSION 1. Osteomyelitis of the second toe on the right foot. MRSA. 2. Cellulitis R foot ongoing. 3. Diabetes mellitus. RECOMMENDATIONS 1. Continue Vancomycin IV outpatient x 4 weeks. Level needs to be adjusted since the trough is high. Cannot give dose until tomorrow pending levels. Spoke to pharmacy. 2. Stop piperacillin / tazobactam. 3. PIC line ordered. 4. Notified case management. 5. Follow up ID DR. Calero in 2 weeks. 6. Follow up with podiatry. Darek Alves MD Oct 29, 2017 12:48
--- NOTE | 2017-10-29 12:50 | HHI.FF ---
Infusion Therapy Location of Infusion Therapy: Home Health Care IV Infusion Order Patient Information Patient Weight 85.2 kg Diagnosis: (1) Cellulitis of foot (2) DM (diabetes mellitus) (3) Osteomyelitis Coded Allergies: acetaminophen (Verified Allergy, Mild, Hives, 10/27/17) amoxicillin (Verified Allergy, Mild, Hives, 10/27/17) oxycodone (Verified Allergy, Mild, Hives, 10/27/17) *MDRO Multi-Drug Resistant Organism (Verified Adverse Reaction, Unknown, 10/25/17) MRSA (foot wound) - 09/2015 & 09/26/16 Administer Medication Vancomycin q 12 hours 1200mg IV Stop Treatment: Nov 26, 2017 Additional Information Venous access: PICC Line Additional Instructions [x] Peripheral flush and dressing changes per protocol [x] Implanted port and central director online marketing: * Implanted port: 10 ml Normal Saline followed by 5 ml Heparin 100 units/ml Heparin flush after each use and monthly to maintain. [] May leave port accessed during therapy. [] May leave peripheral site accessed for duration of therapy. [x] If patient has SOB or respiratory distress, check oxygen saturation. If less than 90% or clinical signs of respiratory distress, administer oxygen at 2 L/min. via nasal cannula and notify physician. [x] Anaphylaxis/Reaction orders: * Stop infusion. * Keep IV line open with saline flush. * Notify physician. * Monitor vital signs every 15 minutes until symptoms resolve. * Check Oxygen saturation; Oxygen at 2 L/min. via nasal cannula if less than 90% or clinical signs of respiratory distress. * Administer diphenhydramine (Benadryl) 25 mg IV STAT, (unless patient has received as pre-med). May repeat once, if necessary. * Solu-Cortef 250 mg IVP over 30-60 seconds, use 100 mg vials for each dissolution. * Epinephrine (1mg/1 ml) 0.3 mg subcutaneously or IVP now with any signs of respiratory distress. * Check with physician for new additional pre-med orders if patient is re- challenged or re-treated. [x] May remove PICC line when treatment complete, after confirming with Physician. [x] If the patient is admitted to the hospital, the ED, or transferred via [facility] , complete transfer form including medication reconciliation order sheet. Laboratory Tests Weekly Labs: BMP, CBC w/diff, Vancomycin Trough Additional Information Follow up with Dr. Calero in 2 weeks. Darek Alves MD Oct 29, 2017 12:50
[2017-10-29] MEDS: FOLIC ACID 1 MG TAB PO SCH (14:05)
[2017-10-29] MEDS: ATORVASTATIN 10 MG TAB PO SCH (14:06)
[2017-10-29] MEDS: NICOTINE 7 MG/24 HR PATCH T-DERMAL SCH (14:06)
[2017-10-29] MEDS: LISINOPRIL 20 MG TAB PO SCH (14:06)
[2017-10-29] MEDS: CARVEDILOL 12.5 MG TAB PO SCH ×2 (14:07→20:37)
[2017-10-29] MEDS: PANTOPRAZOLE SOD 40 MG DELAYED RELEASE TAB PO SCH (14:07)
[2017-10-29] MEDS: amLODIPine BESYLATE 5 MG TAB PO SCH (14:07)
[2017-10-29] MEDS: FUROSEMIDE 40 MG TAB PO SCH ×2 (14:07→20:37)
[2017-10-29] MEDS: DOCUSATE SODIUM 50 MG/SENNA 8.6 MG TAB PO SCH ×2 (14:07→20:46)
[2017-10-29] MEDS: RIVAROXABAN 20 MG TAB PO SCH (14:07)
[2017-10-29] MEDS ORDERED: SODIUM CHLORIDE 0.9% FLUSH 10 ML FLUSH IV FLUSH PRN (15:30)
--- NOTE | 2017-10-29 15:57 | RADRPT ---
EXAM DATE/TIME: 10/29/2017 15:32 [facility] COMPARISON: CHEST SINGLE AP, October 25, 2017, 16:57. INDICATIONS : Post PICC line placement. MEDICAL HISTORY : Gastroesophageal reflux disease. Congestive heart failure. Hypertension. SURGICAL HISTORY : Spinal surgery. ENCOUNTER: Initial ACUITY: 1 day PAIN SCORE: 0/10 LOCATION: Bilateral chest FINDINGS: A single view of the chest demonstrates the lungs to be symmetrically aerated without evidence of mas s, infiltrate or effusion. Mild pulmonary vascular prominence. The cardiomediastinal contours are unr emarkable. Osseous structures are intact. CONCLUSION: Normal examination. The right-sided PICC line is in good position. Mild pulmonary vascular prominence Mp Monteiro MD on October 29, 2017 at 15:55 Board Certified Radiologist. This report was verified electronically.
[2017-10-29 16:00] VITALS: BP 133/84; PULSE 69; RESP 18; TEMP 96; O2SAT 99
[2017-10-29] MEDS ORDERED: METOCLOPRAMIDE HCL 10 MG/2 ML VIAL IV PUSH PRN (16:00)
[2017-10-29] MEDS ORDERED: ONDANSETRON HCL 4 MG/2 ML VIAL IVP PRN (16:00)
--- NOTE | 2017-10-29 16:24 | HHI.PR ---
Subjective Remarks This is a pleasant 52 y/o male with CHF EF 30%, Histor of DVT on Xarelto, Hypertension, Hyperlipidemia GERD, who came to ER with worsening Right toe infection, failed outpatient antibiotic management, his DM II is been uncontrolled, MRI of the right foot was obtained and was suspicious for osteomyelitis. Seen by Podiatry specialist, Right foot second digit amputation with possible second metatarsal head resection and right hallux excision of ulcer with excision of head of proximal phalanx of hallux. Stable in his bedroom, no complaint awaiting for procedure; 10/27: Seen by ID specialist Doctor Long, with diagnosis of Osteomyelitis of the second toe on right foot, DM recommended to continue Vancomycin and Zosyn, Culture when Podiatry perform surgery. seen in his bedroom adjusted anti-hypertensives, no nausea, vomit or diarrhea. 10-28 had procedure with podiatry on right foot October 27 Will restart surrounding to tomorrow 20 mg by mouth daily A.m. labs Continue on vancomycin and Zosyn per infectious disease Podiatry input appreciated 10-29 not cleared by ID YET WILL NEED PICC AND FOLLOW UP DW RN AND PT HAVING SOME NAUSEA- MEDS ADJUSTED AM LABS Objective Vitals Vital Signs Date Time Temp Pulse Resp B/P (MAP) Pulse Ox O2 Delivery O2 Flow Rate FiO2 10/29/17 12:00 96.5 17 17 126/76 (93) 97 10/29/17 08:00 95.6 64 17 121/74 (90) 96 10/29/17 04:32 18 10/28/17 20:04 97.2 79 18 142/79 (100) 97 10/28/17 19:48 67 I/O 10/28/17 10/28/17 10/28/17 10/29/17 10/29/17 10/29/17 07:00 15:00 23:00 07:00 15:00 23:00 Intake Total 350 ml 1862.5 ml 200 ml Output Total 800 ml 1300 ml 700 ml Balance -800 ml 350 ml 562.5 ml 200 ml -700 ml Intake Oral 500 ml IV Total 350 ml 1362.5 ml 200 ml Output Urine Total 800 ml 1300 ml 700 ml # Bowel Movements 0 Result Diagram: 10/29/17 0951 10/29/17 0951 Other Results Laboratory Tests Test 10/27/17 11:20 10/28/17 11:05 10/29/17 09:51 Creatinine 0.89 MG/DL 0.89 MG/DL Estimat Glomerular Filtration Rate 89 ML/MIN 89 ML/MIN Vancomycin Level Trough 25.1 MCG/ML 28.0 MCG/ML White Blood Count 8.1 TH/MM3 Red Blood Count 4.36 MIL/MM3 Hemoglobin 12.0 GM/DL Hematocrit 36.3 % Mean Corpuscular Volume 83.3 FL Mean Corpuscular Hemoglobin 27.6 PG Mean Corpuscular Hemoglobin Concent 33.1 % Red Cell Distribution Width 16.0 % Platelet Count 183 TH/MM3 Mean Platelet Volume 9.4 FL Neutrophils (%) (Auto) 72.4 % Lymphocytes (%) (Auto) 13.1 % Monocytes (%) (Auto) 10.6 % Eosinophils (%) (Auto) 3.5 % Basophils (%) (Auto) 0.4 % Neutrophils # (Auto) 5.8 TH/MM3 Lymphocytes # (Auto) 1.1 TH/MM3 Monocytes # (Auto) 0.9 TH/MM3 Eosinophils # (Auto) 0.3 TH/MM3 Basophils # (Auto) 0.0 TH/MM3 CBC Comment DIFF FINAL Differential Comment Blood Urea Nitrogen 8 MG/DL Random Glucose 60 MG/DL Total Protein 6.1 GM/DL Albumin 2.1 GM/DL Calcium Level 7.4 MG/DL Phosphorus Level 1.9 MG/DL Magnesium Level 1.5 MG/DL Alkaline Phosphatase 74 U/L Aspartate Amino Transf (AST/SGOT) 52 U/L Alanine Aminotransferase (ALT/SGPT) 71 U/L Total Bilirubin 0.5 MG/DL Sodium Level 137 MEQ/L Potassium Level 3.1 MEQ/L Chloride Level 102 MEQ/L Carbon Dioxide Level 27.7 MEQ/L Anion Gap 7 MEQ/L Protein Corrected Calcium 7.9 MG/DL Imaging Last Impressions Chest X-Ray 10/29/17 0000 Signed Impressions: Service Date/Time: Sunday, October 29, 2017 15:32 - CONCLUSION: Normal examination. The right-sided PICC line is in good position. Mild pulmonary vascular prominence Mp Monteiro MD Foot X-Ray 10/27/17 0000 Signed Impressions: Service Date/Time: Friday, October 27, 2017 18:54 - CONCLUSION: Status post surgery as described above. Clifford Priest MD Foot MRI 10/25/17 0000 Signed Impressions: Service Date/Time: Wednesday, October 25, 2017 13:30 - CONCLUSION: 1. There is abnormal signal and abnormal enhancement involving the second toe. This would be suspicious for osteomyelitis. 2. There are degenerative changes in involving the first distal phalanx with some questionable increased signal in the first proximal phalanx. However no definite abnormal enhancement is seen to suggest osteomyelitis. This may be related to degenerative type changes Greg Mazariegos MD Objective Remarks GENERAL: Awake alert oriented talkative and cooperative. SKIN: Warm and dry. Right foot is dressed --multiple tattoos HEAD: Atraumatic. Normocephalic. EYES: Pupils equal and round. No scleral icterus. No injection or drainage. Extraocular muscles intact ENT: No nasal bleeding or discharge. Mucous membranes pink and moist. Tongue is midline NECK: Trachea midline. No JVD. Supple CARDIOVASCULAR: IRRegular rate and rhythm. S1 and S2 no S3 or S4 RESPIRATORY: No accessory muscle use. Clear to auscultation. Breath sounds equal bilaterally. GASTROINTESTINAL: Abdomen soft, non-tender, nondistended. Hepatic and splenic margins not palpable. MUSCULOSKELETAL: Extremities without clubbing, cyanosis, or edema. No obvious deformities. Left foot has a TMA-- right foot is dressed NEUROLOGICAL: Awake and alert. No obvious cranial nerve deficits. Motor grossly within normal limits. 4out of 5 muscle strength in the arms and legs. Normal speech. PSYCHIATRIC: Appropriate mood and affect; insight and judgment normal. Procedures DATE: 10/27/2017. SURGEON: Xiao Peoples DPM. TOGGLER: None. PREOPERATIVE DIAGNOSIS: 1. Right second digit osteomyelitis. 2. Right hallux proximal phalanx osteomyelitis. 3. Right hallux hammer toe contraction at interphalangeal joint. 4. Right second digit hammer toe contraction at interphalangeal joint. POSTOPERATIVE DIAGNOSIS: 1. Right second digit osteomyelitis. 2. Right hallux proximal phalanx osteomyelitis. 3. Right hallux hammer toe contraction at interphalangeal joint. 4. Right second digit hammer toe contraction at interphalangeal joint. OPERATIVE PROCEDURE PERFORMED: 1. Second digit amputation at metatarsophalangeal joint. 2. Right hallux interphalangeal joint arthroplasty at proximal phalanx head with excision of ulcer. ANESTHESIA: General with a local infiltration of a 1:1 mixture of 0.5% Marcaine plain and 1% lidocaine plain infiltrated about the right foot in fashion. HEMOSTASIS: Ankle tourniquet set at 250 mmHg. ESTIMATED BLOOD LOSS: 1 cc. MATERIALS: 2-0 and 3-0 Prolene. INJECTABLES: None. COMPLICATIONS: None. Medications and IVs Current Medications Gadodiamide (Omniscan Pf Inj) 14 ml STK-MED ONCE IVCONTRAST Last administered on 10/25/17 11:36; Start 10/25/17 at 11:36; Stop 10/25/17 at 13:59; Status DC Morphine Sulfate (Morphine Inj) 4 mg ONCE ONCE IV PUSH Last administered on 14:25; Start 10/25/17 at 14:30; Stop 10/25/17 at 14:31; Status DC Piperacillin Sod/ Tazobactam Sod 100 ml @ 200 mls/hr ONCE ONCE IV Last administered on 10/25/17 17:52; Start 10/25/17 at 15:30; Stop 10/25/17 at 15 :59; Status DC Dextrose (D50w (Vial) Inj) 50 ml UNSCH PRN IV PUSH HYPOGLYCEMIA-SEE COMMENTS Last administered on 10/29/17 10:07; Start 10/25/17 at 17:45 Glucagon (Glucagon Inj) 1 mg UNSCH PRN OTHER HYPOGLYCEMIA-SEE COMMENTS; Start 10/25/17 at 17:45 Insulin Aspart (NovoLOG SUPPLEMENTAL SCALE) 1 ACHS SLIDING SCALE SQ ; Start at 21:00 Clonidine (Catapres) 0.1 mg Q4H PRN PO SBP>160, DBP>90; Start 10/25/17 at 17: 45 Pharmacy Profile Note 0 ml @ 0 mls/hr UNSCH OTHER ; Start 10/25/17 at 17:45 Vancomycin HCl 1000 mg/Sodium Chloride 250 ml @ 250 mls/hr ONCE ONCE IV Last administered on 10/25/17 21:54; Start 10/25/17 at 20:00; Stop 10/25/17 at 20 :59; Status DC Diphenhydramine HCl (Benadryl Inj) 25 mg Q6H PRN IV PUSH ALLERGIC REACTION; Start 10/25/17 at 17:45 Diphenhydramine HCl (Benadryl) 50 mg Q12H PO Last administered on 10/29/17 05 :38; Start 10/26/17 at 06:00 Sodium Chloride 1,000 ml @ 100 mls/hr Q10H IV Last administered on 10/29/17 03:34; Start 10/25/17 at 20:00 Sodium Chloride (NS Flush) 2 ml UNSCH PRN IV FLUSH FLUSH AFTER USING IV ACCESS Last administered on 10/26/17 17:20; Start 10/25/17 at 17:45 Sodium Chloride (NS Flush) 2 ml BID IV FLUSH Last administered on 10/27/17 08 :42; Start 10/25/17 at 21:00 Acetaminophen (Tylenol) 650 mg Q4H PRN PO TEMP > 100.4; Start 10/25/17 at 17: 45 Ondansetron HCl (Zofran Inj) 4 mg Q6H PRN IVP NAUSEA OR VOMITING Last administered on 10/29/17 10:08; Start 10/25/17 at 17:45; Stop 10/29/17 at 15 :52; Status DC Prochlorperazine (Compazine Supp) 25 mg Q12H PRN RECTAL NAUSEA OR VOMITING; Start 10/25/17 at 17:45 Zolpidem Tartrate (Ambien) 5 mg HS PRN PO INSOMNIA; Start 10/25/17 at 17:45 Heparin Sodium (Porcine) (Heparin Inj) 5,000 units Q12H SQ ; Start 10/25/17 at 17:45; Stop 10/25/17 at 17:50; Status DC Acetaminophen (Tylenol) 650 mg Q6H PRN PO PAIN SCALE 1 TO 2; Start 10/25/17 at 17:45 Oxycodone HCl (Roxicodone) 10 mg Q4H PRN PO PAIN SCALE 6 TO 10 Last administered on 10/29/17 14:15; Start 10/25/17 at 17:45 Morphine Sulfate (Morphine Inj) 2 mg Q3H PRN IV PUSH Pain 3-5; if unable to take PO Last administered on 10/26/17 00:54; Start 10/25/17 at 17:45; Stop 10/28/17 at 09:46; Status DC Morphine Sulfate (Morphine Inj) 4 mg Q3H PRN IV PUSH Pain 6-10;if unable to take PO Last administered on 10/28/17 03:16; Start 10/25/17 at 17:45; Stop 10/28/17 at 09:46; Status DC Oxycodone HCl (Roxicodone) 5 mg Q4H PRN PO PAIN SCALE 3 TO 5; Start 10/25/17 at 17:45 Naloxone HCl (Narcan Inj) 0.4 mg UNSCH PRN IV PUSH SEE LABEL COMMENTS; Start 10/25/17 at 17:45 Senna/Docusate Sodium (Mariam-Colace) 1 tab BID PO Last administered on 14:07; Start 10/25/17 at 21:00 Magnesium Hydroxide (Milk Of Magnesia Liq) 30 ml Q12H PRN PO Mild constipation ; Start 10/25/17 at 17:45 Sennosides (Senokot) 17.2 mg Q12H PRN PO Moderate constipation; Start at 17:45 Bisacodyl (Dulcolax Supp) 10 mg DAILY PRN RECTAL SEVERE CONSITIPATION; Start 10/25/17 at 17:45 Lactulose (Lactulose Liq) 30 ml DAILY PRN PO SEVERE CONSITIPATION; Start 10/25 at 17:45 Piperacillin Sod/ Tazobactam Sod 100 ml @ 200 mls/hr Q6H IV Last administered on 10/29/17 11:49; Start 10/26/17 at 00:00; Stop 10/29/17 at 12:37; Status DC Heparin Sodium (Porcine) (Heparin Inj) 5,000 units Q8H SQ Last administered on 10/28/17 21:33; Start 10/25/17 at 22:00; Stop 10/28/17 at 23:59; Status DC Amlodipine Besylate (Norvasc) 2.5 mg DAILY PO Last administered on 10/27/17 08:49; Start 10/26/17 at 09:00; Stop 10/27/17 at 13:07; Status DC Atorvastatin Calcium (Lipitor) 10 mg DAILY PO Last administered on 10/29/17 14:06; Start 10/26/17 at 09:00 Carvedilol (Coreg) 25 mg Q12HR PO Last administered on 10/29/17 14:07; Start 10/25/17 at 21:00 Folic Acid (Folate) 1 mg DAILY PO Last administered on 10/29/17 14:05; Start 10/26/17 at 09:00 Furosemide (Lasix) 40 mg BID PO Last administered on 10/29/17 14:07; Start 10/25/17 at 21:00 Insulin Detemir (Levemir Inj) 28 units BID SQ Last administered on 10/28/17 08:10; Start 10/25/17 at 21:00 Lisinopril (Prinivil) 40 mg DAILY PO Last administered on 10/29/17 14:06; Start 10/26/17 at 09:00 Pantoprazole Sodium (Protonix) 40 mg DAILY PO Last administered on 10/29/17 14:07; Start 10/26/17 at 09:00 Potassium Chloride (KCl) 10 meq BID PO Last administered on 10/29/17 09:00; Start 10/25/17 at 21:00 Nicotine (Habitrol 7 Mg Patch.24 Hr) 1 patch DAILY T-DERMAL Last administered on 10/29/17 14:06; Start 10/25/17 at 09:00 Miscellaneous Information 1 DAILY T-DERMAL Last administered on 10/29/17 09: 00; Start 10/26/17 at 09:00 Miscellaneous (Pill Splitter) 1 ea UNSCH PRN OTHER SEE LABEL COMMENTS; Start 10/25/17 at 19:00 Diphenhydramine HCl (Benadryl) 50 mg ONCE ONCE PO Last administered on 21:54; Start 10/25/17 at 20:00; Stop 10/25/17 at 20:01; Status DC Influenza Virus Vaccine (Flu (Quadrivalent) Vaccine Inj) 0.5 ml ONCE ONCE IM ; Start 10/26/17 at 10:00; Stop 10/26/17 at 10:01; Status DC Pneumococcal Polyvalent Vaccine (Pneumovax-23 Inj) 25 mcg ONCE ONCE IM ; Start 10/26/17 at 10:00; Stop 10/26/17 at 10:01; Status DC Vancomycin HCl 1250 mg/Sodium Chloride 262.5 ml @ 250 mls/hr Q12H IV Last administered on 10/29/17 05:38; Start 10/26/17 at 06:00 Miscellaneous Information SPECIFIC LAB TO BE [place]... ONCE ONCE .XX ; Start at 05:45; Stop 10/27/17 at 05:46; Status DC Lactated Ringer's 1,000 ml @ 30 mls/hr Q24H PRN IV SEE LABEL COMMENTS; Start 10/26/17 at 01:45; Stop 10/27/17 at 20:05; Status DC Miscellaneous Information SPECIFIC LAB TO BE [place]... ONCE ONCE .XX ; Start at 17:45; Stop 10/27/17 at 17:46; Status Cancel Amlodipine Besylate (Norvasc) 5 mg DAILY PO Last administered on 10/29/17t 14: 07; Start 10/28/17 at 09:00 Miscellaneous Information SPECIFIC LAB TO BE [place]... ONCE ONCE .XX Last administered on 10/28/17 05:45; Start 10/28/17 at 05:45; Stop 10/28/17 at 05 :46; Status DC Etomidate (Amidate Inj) 20 mg STK-MED ONCE .ROUTE ; Start 10/27/17 at 17:09; Stop 10/27/17 at 17:10; Status DC Vancomycin HCl (Vancomycin Inj) 1,000 mg STK-MED ONCE .ROUTE Last administered on 10/27/17 18:18; Start 10/27/17 at 17:11; Stop 10/27/17 at 17:12; Status DC Bupivacaine HCl (Marcaine Pf 0.5% Inj) 30 ml STK-MED ONCE .ROUTE Last administered on 10/27/17 17:36; Start 10/27/17 at 17:11; Stop 10/27/17 at 17 :12; Status DC Lidocaine HCl (Xylocaine 1% Inj (50 ml)) 50 ml STK-MED ONCE .ROUTE Last administered on 10/27/17 17:36; Start 10/27/17 at 17:11; Stop 10/27/17 at 17 :12; Status DC Miscellaneous Information (Post-op Orders (for Pharmacy)) STAT ONCE XX ; Start 10/27/17 at 18:45; Stop 10/27/17 at 18:46; Status DC Miscellaneous Information ALL NURSING DEPARTME... UNSCH PRN .XX SEE LABEL COMMENTS; Start 10/27/17 at 19:00; Stop 10/28/17 at 18:59; Status DC Miscellaneous Information ALL NURSING DEPARTME... UNSCH PRN .XX SEE LABEL COMMENTS; Start 10/27/17 at 20:15; Stop 10/28/17 at 20:14; Status DC Morphine Sulfate (Morphine Inj) 2 mg Q3H PRN IV PUSH Pain 3-5; if unable to take PO; Start 10/28/17 at 10:00 Morphine Sulfate (Morphine Inj) 4 mg Q3H PRN IV PUSH Pain 6-10;if unable to take PO; Start 10/28/17 at 10:00 Miscellaneous Information SPECIFIC LAB TO BE [place]... ONCE ONCE .XX ; Start at 17:45; Stop 10/29/17 at 17:46 Rivaroxaban (Xarelto) 20 mg DAILY PO Last administered on 10/29/17t 14:07; Start 10/29/17 at 09:00 Sodium Chloride (NS Flush) See Protocol DAILY IV FLUSH ; Start 10/30/17 at 09: 00 Sodium Chloride (NS Flush) See Protocol UNSCH PRN IV FLUSH SEE PROTOCOL TABLE; Start 10/29/17 at 15:30 Heparin Sodium (Porcine) (Heparin Central Flush) See Protocol DAILY IV FLUSH ; Start 10/30/17 at 09:00 Heparin Sodium (Porcine) (Heparin Central Flush) See Protocol UNSCH PRN IV FLUSH SEE PROTOCOL TABLE; Start 10/29/17 at 15:30 Sodium Chloride (NS Flush) UNSCH PRN IV FLUSH SEE PROTOCOL TABLE; Start 10/29 at 15:30 Ondansetron HCl (Zofran Inj) 8 mg Q4H PRN IVP NAUSEA OR VOMITING; Start at 16:00; Status UNV Metoclopramide HCl (Reglan Inj) 10 mg Q8H PRN IV PUSH NAUSEA/VOMITING; Start 10/29/17 at 16:00; Status UNV A/P Assessment and Plan 1. Right Diabetic Foot ulcer/Osteomyelitis, MRI right foot reviewed and shows normal signal and abnormal enhancement involving the second toe suspicious for osteomyelitis, degenerative changes involving the first distal phalanx with some questionable increased signal in the first proximal phalanx. on antibiotics Zosyn and Vancomycin Seen by Podiatry specialist, Right foot second digit amputation with possible second metatarsal head resection and right hallux excision of ulcer with excision of head of proximal phalanx of hallux. as per ID specialist to continue Vancomycin and Zosyn and following culture when Podiatry perform the Surgery. --Status post procedure with podiatry on October 27 2. Chronic Systolic Heart Failure EF 30%, non decompensated, Echo 10/20/16 with EF 30%. Patient is supposed to be wearing a LifeVest, Patient scheduled to have AICD placed previously but surgery held due to infection continue Home Medicines Lisinopril 40 mg daily, Lasix 40 mg daily, Coreg 25 mg BID, Norvasc 2.5 mg daily, KlorCon 10 meq BID, Aspirin on hold for Surgery. increased Amlodipine to 5 mg daily and will try to remove IV fluids after surgery to decrease blood pressure. 3. DM II continue sliding scale, hemoglobin A1C 9.5 4. History of Recurrent DVT , on hold Xarelto 20 mg daily for Surgery. 5. Hyperlipidemia resume Home Lipitor 6. GERD on PPIs Malignant medical noncompliance Start Xarelto tomorrow MEDS FOR NAUSEA MEDS FOR CONSTIPATION DVT prophylaxis - Heparin sq Discharge Planning Once clearance by podiatry and infectious disease Sharad Tapia DO Oct 29, 2017 16:24
[2017-10-29] MEDS ORDERED: MAGNESIUM HYDROXIDE SUSP 30 ML CUP PO ONE (16:30)
[2017-10-29] MEDS: DOCUSATE SODIUM 100 MG CAP PO SCH (17:10)
[2017-10-29] MEDS ORDERED: PHARMACY ORDERED LAB ONE (17:45)
[2017-10-29] MEDS: POLYETHYLENE GLYCOL 17 GM PKG PO SCH (18:43)
[2017-10-29 20:00] VITALS: BP 127/78; PULSE 64; RESP 20; TEMP 97; O2SAT 95
[2017-10-30] VITALS (7 sets, daily range): BP systolic 109–129; BP diastolic 59–79; PULSE 60–79; RESP 18–20; TEMP 96.6–98.7; O2SAT 95–99
[2017-10-30] MEDS: diphenhydrAMINE HCL 50 MG CAP PO SCH ×2 (04:05→17:58)
[2017-10-30] MEDS: VANCOMYCIN 1,000 MG/NS 250 ML IV SCH ×6 (04:15→20:05)
[2017-10-30 05:03] LABS: AUTOMATED NEUTROPHIL # 5.1 TH/MM3 (1.8-7.7); BASOPHIL % 0.5 % (0.0-2.0); EOSINOPHIL # 0.3 TH/MM3 (0-0.4); EOSINOPHIL % 4.1 % (0.0-4.0); HEMATOCRIT 33.9 % (39.0-51.0); HEMO FLAGS DIFF FINAL; LYMPH % 13.9 % (9.0-44.0); MEAN CELL VOLUME 83.6 FL (80.0-100.0); MEAN CORPUSCULAR HEMOGLOBIN 27.3 PG (27.0-34.0); MEAN CORPUSCULAR HGB CONC 32.7 % (32.0-36.0); MONO % 11.6 % (0.0-8.0); NEUT % 69.9 % (16.0-70.0); PLATELET COUNT 161 TH/MM3 (150-450); RED BLOOD COUNT 4.05 MIL/MM3 (4.50-5.90); RED CELL DISTRIBUTION WIDTH 16.2 % (11.6-17.2); WHITE BLOOD COUNT 7.3 TH/MM3 (4.0-11.0)
[2017-10-30 05:23] LABS: BICARBONATE 24.1 MEQ/L (21.0-32.0); MAGNESIUM 1.5 MG/DL (1.5-2.5); POTASSIUM 3.6 MEQ/L (3.5-5.1); TOTAL BILIRUBIN ADULT 0.6 MG/DL (0.2-1.0)
[2017-10-30] MEDS: SODIUM CHLOR 0.9% 1000 ML INJ 1,000 ML IV SCH ×2 (05:30→20:00)
[2017-10-30] MEDS: INSULIN ASPART SUPPLEMENTAL SCALE SQ SCH ×4 (08:00→21:00)
[2017-10-30] MEDS: FOLIC ACID 1 MG TAB PO SCH (08:17)
[2017-10-30] MEDS: amLODIPine BESYLATE 5 MG TAB PO SCH (08:17)
[2017-10-30] MEDS: FUROSEMIDE 40 MG TAB PO SCH ×2 (08:18→22:49)
[2017-10-30] MEDS: CARVEDILOL 12.5 MG TAB PO SCH ×2 (08:18→22:50)
[2017-10-30] MEDS: NICOTINE 7 MG/24 HR PATCH T-DERMAL SCH (08:18)
[2017-10-30] MEDS: LISINOPRIL 20 MG TAB PO SCH (08:18)
[2017-10-30] MEDS: DOCUSATE SODIUM 100 MG CAP PO SCH ×3 (08:18→17:58)
[2017-10-30] MEDS: DOCUSATE SODIUM 50 MG/SENNA 8.6 MG TAB PO SCH ×2 (08:19→21:00)
[2017-10-30] MEDS: POTASSIUM CHLORIDE 10 MEQ CONTROLLED RELEASE TAB PO SCH ×2 (08:19→22:50)
[2017-10-30] MEDS: PANTOPRAZOLE SOD 40 MG DELAYED RELEASE TAB PO SCH (08:19)
[2017-10-30] MEDS: RIVAROXABAN 20 MG TAB PO SCH (08:19)
[2017-10-30] MEDS: ATORVASTATIN 10 MG TAB PO SCH (08:19)
[2017-10-30] MEDS: REMOVE OLD PATCH T-DERMAL SCH (08:20)
[2017-10-30] MEDS: POLYETHYLENE GLYCOL 17 GM PKG PO SCH (09:00)
[2017-10-30] MEDS: SODIUM CHLORIDE 0.9% FLUSH 10 ML FLUSH IV FLUSH SCH ×3 (09:00→20:00)
[2017-10-30] MEDS: INSULIN DETEMIR 100 UNITS/ML VIAL SQ SCH ×2 (09:00→21:00)
--- NOTE | 2017-10-30 09:20 | HHI.IDPN ---
Note Infectious Disease Note Addendum to yesterdays's note I have spoken to pathology regarding the path report. Orders filled out for IV home antibiotics. Okay to discharge from my standpoint. Darek Alves MD Oct 30, 2017 09:20
--- NOTE | 2017-10-30 12:02 | HHI.FF ---
Face to Face Verification Diagnosis: (1) Amputated toe of left foot (2) DM (diabetes mellitus), type 2, uncontrolled w/neurologic complication (3) Non compliance with medical treatment (4) Chronic foot ulcer (5) Personal history of tobacco use, presenting hazards to health (6) Toe osteomyelitis, left (7) Toe amputation status (8) DM (diabetes mellitus) (9) Type II diabetes mellitus with neurological manifestations, uncontrolled (10) Poorly controlled diabetes mellitus Physical Therapy Order: Evaluate and Treat, Improve ambulation, Strength and gait training Occupational Therapy Order: Evaluate and Treat, Improve ADL, Gross motor coordination, Fine motor coordination Home Health Nursing Order: Wound care and dressing changes Nursing assessment with vital signs I have seen patient Guerrero Hu on 10/30/17. My clinical findings support the need for the requested home health care services because: Ltd mobility - disease progression Med compliance is questionable Limited ability to care for self I certify that my clinical findings support that this patient is homebound because: Impaired cognitive ability/safety Unsteady gait/balance Sharad Tapia DO Oct 30, 2017 12:02
--- NOTE | 2017-10-30 12:06 | HHI.PR ---
Subjective Remarks This is a pleasant 52 y/o male with CHF EF 30%, Histor of DVT on Xarelto, Hypertension, Hyperlipidemia GERD, who came to ER with worsening Right toe infection, failed outpatient antibiotic management, his DM II is been uncontrolled, MRI of the right foot was obtained and was suspicious for osteomyelitis. Seen by Podiatry specialist, Right foot second digit amputation with possible second metatarsal head resection and right hallux excision of ulcer with excision of head of proximal phalanx of hallux. Stable in his bedroom, no complaint awaiting for procedure; 10/27: Seen by ID specialist Doctor Long, with diagnosis of Osteomyelitis of the second toe on right foot, DM recommended to continue Vancomycin and Zosyn, Culture when Podiatry perform surgery. seen in his bedroom adjusted anti-hypertensives, no nausea, vomit or diarrhea. 10-28 had procedure with podiatry on right foot October 27 Will restart surrounding to tomorrow 20 mg by mouth daily A.m. labs Continue on vancomycin and Zosyn per infectious disease Podiatry input appreciated 10-29 not cleared by ID YET WILL NEED PICC AND FOLLOW UP DW RN AND PT HAVING SOME NAUSEA- MEDS ADJUSTED AM LABS 10-30 CLEARED BY ID FOR DC TODAY HAS PICC IN PLACE WANTS TO GO HOME TODAY DW RN AND PT Objective Vitals Vital Signs Date Time Temp Pulse Resp B/P (MAP) Pulse Ox O2 Delivery O2 Flow Rate FiO2 10/30/17 09:17 18 10/30/17 08:00 97.7 70 19 120/68 (85) 97 10/30/17 04:00 96.8 60 20 109/59 (76) 96 10/30/17 00:44 65 10/30/17 00:00 97.2 61 20 119/71 (87) 96 10/29/17 20:00 97.0 64 20 127/78 (94) 95 10/29/17 16:00 96.0 69 18 133/84 (100) 99 I/O 10/29/17 10/29/17 10/29/17 10/30/17 10/30/17 10/30/17 07:00 15:00 23:00 07:00 15:00 23:00 Intake Total 200 ml 500 ml 1830 ml Output Total 700 ml 600 ml 400 ml Balance 200 ml -700 ml -100 ml 1430 ml Intake Oral 500 ml 580 ml IV Total 200 ml 1250 ml Output Urine Total 700 ml 600 ml 400 ml # Bowel Movements 0 Result Diagram: 10/30/17 0450 10/30/17 0450 Other Results Laboratory Tests Test 10/28/17 11:05 10/29/17 09:51 10/29/17 17:16 10/30/17 04:50 Vancomycin Level Trough 28.0 MCG/ML 20.6 MCG/ML White Blood Count 8.1 TH/MM3 7.3 TH/MM3 Red Blood Count 4.36 MIL/MM3 4.05 MIL/MM3 Hemoglobin 12.0 GM/DL 11.1 GM/DL Hematocrit 36.3 % 33.9 % Mean Corpuscular Volume 83.3 FL 83.6 FL Mean Corpuscular Hemoglobin 27.6 PG 27.3 PG Mean Corpuscular Hemoglobin Concent 33.1 % 32.7 % Red Cell Distribution Width 16.0 % 16.2 % Platelet Count 183 TH/MM3 161 TH/MM3 Mean Platelet Volume 9.4 FL 8.8 FL Neutrophils (%) (Auto) 72.4 % 69.9 % Lymphocytes (%) (Auto) 13.1 % 13.9 % Monocytes (%) (Auto) 10.6 % 11.6 % Eosinophils (%) (Auto) 3.5 % 4.1 % Basophils (%) (Auto) 0.4 % 0.5 % Neutrophils # (Auto) 5.8 TH/MM3 5.1 TH/MM3 Lymphocytes # (Auto) 1.1 TH/MM3 1.0 TH/MM3 Monocytes # (Auto) 0.9 TH/MM3 0.8 TH/MM3 Eosinophils # (Auto) 0.3 TH/MM3 0.3 TH/MM3 Basophils # (Auto) 0.0 TH/MM3 0.0 TH/MM3 CBC Comment DIFF FINAL DIFF FINAL Differential Comment Blood Urea Nitrogen 8 MG/DL 10 MG/DL Creatinine 0.89 MG/DL 1.27 MG/DL Random Glucose 60 MG/DL 123 MG/DL Total Protein 6.1 GM/DL 6.0 GM/DL Albumin 2.1 GM/DL 2.2 GM/DL Calcium Level 7.4 MG/DL 7.4 MG/DL Phosphorus Level 1.9 MG/DL 1.8 MG/DL Magnesium Level 1.5 MG/DL 1.5 MG/DL Alkaline Phosphatase 74 U/L 74 U/L Aspartate Amino Transf (AST/SGOT) 52 U/L 37 U/L Alanine Aminotransferase (ALT/SGPT) 71 U/L 56 U/L Total Bilirubin 0.5 MG/DL 0.6 MG/DL Sodium Level 137 MEQ/L 136 MEQ/L Potassium Level 3.1 MEQ/L 3.6 MEQ/L Chloride Level 102 MEQ/L 104 MEQ/L Carbon Dioxide Level 27.7 MEQ/L 24.1 MEQ/L Anion Gap 7 MEQ/L 8 MEQ/L Estimat Glomerular Filtration Rate 89 ML/MIN 59 ML/MIN Protein Corrected Calcium 7.9 MG/DL 8.0 MG/DL Imaging Last Impressions Chest X-Ray 10/29/17 0000 Signed Impressions: Service Date/Time: Sunday, October 29, 2017 15:32 - CONCLUSION: Normal examination. The right-sided PICC line is in good position. Mild pulmonary vascular prominence Mp Monteiro MD Foot X-Ray 10/27/17 0000 Signed Impressions: Service Date/Time: Friday, October 27, 2017 18:54 - CONCLUSION: Status post surgery as described above. Clifford Priest MD Foot MRI 10/25/17 0000 Signed Impressions: Service Date/Time: Wednesday, October 25, 2017 13:30 - CONCLUSION: 1. There is abnormal signal and abnormal enhancement involving the second toe. This would be suspicious for osteomyelitis. 2. There are degenerative changes in involving the first distal phalanx with some questionable increased signal in the first proximal phalanx. However no definite abnormal enhancement is seen to suggest osteomyelitis. This may be related to degenerative type changes Greg Mazariegos MD Objective Remarks GENERAL: Awake alert oriented talkative and cooperative. SKIN: Warm and dry. Right foot is dressed --multiple tattoos HEAD: Atraumatic. Normocephalic. EYES: Pupils equal and round. No scleral icterus. No injection or drainage. Extraocular muscles intact ENT: No nasal bleeding or discharge. Mucous membranes pink and moist. Tongue is midline NECK: Trachea midline. No JVD. Supple CARDIOVASCULAR: IRRegular rate and rhythm. S1 and S2 no S3 or S4 RESPIRATORY: No accessory muscle use. Clear to auscultation. Breath sounds equal bilaterally. GASTROINTESTINAL: Abdomen soft, non-tender, nondistended. Hepatic and splenic margins not palpable. MUSCULOSKELETAL: Extremities without clubbing, cyanosis, or edema. No obvious deformities. Left foot has a TMA-- right foot is dressed PICC IN PLACE RIGHT UE NEUROLOGICAL: Awake and alert. No obvious cranial nerve deficits. Motor grossly within normal limits. 4out of 5 muscle strength in the arms and legs. Normal speech. PSYCHIATRIC: Appropriate mood and affect; insight and judgment normal. Procedures DATE: 10/27/2017. SURGEON: Xiao Peoples DPM. [employer]ING ASSEMBLER: None. PREOPERATIVE DIAGNOSIS: 1. Right second digit osteomyelitis. 2. Right hallux proximal phalanx osteomyelitis. 3. Right hallux hammer toe contraction at interphalangeal joint. 4. Right second digit hammer toe contraction at interphalangeal joint. POSTOPERATIVE DIAGNOSIS: 1. Right second digit osteomyelitis. 2. Right hallux proximal phalanx osteomyelitis. 3. Right hallux hammer toe contraction at interphalangeal joint. 4. Right second digit hammer toe contraction at interphalangeal joint. OPERATIVE PROCEDURE PERFORMED: 1. Second digit amputation at metatarsophalangeal joint. 2. Right hallux interphalangeal joint arthroplasty at proximal phalanx head with excision of ulcer. ANESTHESIA: General with a local infiltration of a 1:1 mixture of 0.5% Marcaine plain and 1% lidocaine plain infiltrated about the right foot in fashion. HEMOSTASIS: Ankle tourniquet set at 250 mmHg. ESTIMATED BLOOD LOSS: 1 cc. MATERIALS: 2-0 and 3-0 Prolene. INJECTABLES: None. COMPLICATIONS: None. Medications and IVs Current Medications Gadodiamide (Omniscan Pf Inj) 14 ml STK-MED ONCE IVCONTRAST Last administered on 10/25/17 11:36; Start 10/25/17 at 11:36; Stop 10/25/17 at 13:59; Status DC Morphine Sulfate (Morphine Inj) 4 mg ONCE ONCE IV PUSH Last administered on 14:25; Start 10/25/17 at 14:30; Stop 10/25/17 at 14:31; Status DC Piperacillin Sod/ Tazobactam Sod 100 ml @ 200 mls/hr ONCE ONCE IV Last administered on 10/25/17 17:52; Start 10/25/17 at 15:30; Stop 10/25/17 at 15 :59; Status DC Dextrose (D50w (Vial) Inj) 50 ml UNSCH PRN IV PUSH HYPOGLYCEMIA-SEE COMMENTS Last administered on 10/29/17 10:07; Start 10/25/17 at 17:45 Glucagon (Glucagon Inj) 1 mg UNSCH PRN OTHER HYPOGLYCEMIA-SEE COMMENTS; Start 10/25/17 at 17:45 Insulin Aspart (NovoLOG SUPPLEMENTAL SCALE) 1 ACHS SLIDING SCALE SQ ; Start at 21:00 Clonidine (Catapres) 0.1 mg Q4H PRN PO SBP>160, DBP>90; Start 10/25/17 at 17: 45 Pharmacy Profile Note 0 ml @ 0 mls/hr UNSCH OTHER ; Start 10/25/17 at 17:45 Vancomycin HCl 1000 mg/Sodium Chloride 250 ml @ 250 mls/hr ONCE ONCE IV Last administered on 10/25/17 21:54; Start 10/25/17 at 20:00; Stop 10/25/17 at 20 :59; Status DC Diphenhydramine HCl (Benadryl Inj) 25 mg Q6H PRN IV PUSH ALLERGIC REACTION; Start 10/25/17 at 17:45 Diphenhydramine HCl (Benadryl) 50 mg Q12H PO Last administered on 10/30/17 04 :05; Start 10/26/17 at 06:00 Sodium Chloride 1,000 ml @ 100 mls/hr Q10H IV Last administered on 10/30/17 05:30; Start 10/25/17 at 20:00 Sodium Chloride (NS Flush) 2 ml UNSCH PRN IV FLUSH FLUSH AFTER USING IV ACCESS Last administered on 10/26/17 17:20; Start 10/25/17 at 17:45 Sodium Chloride (NS Flush) 2 ml BID IV FLUSH Last administered on 10/29/17 20 :46; Start 10/25/17 at 21:00 Acetaminophen (Tylenol) 650 mg Q4H PRN PO TEMP > 100.4; Start 10/25/17 at 17: 45 Ondansetron HCl (Zofran Inj) 4 mg Q6H PRN IVP NAUSEA OR VOMITING Last administered on 10/29/17 10:08; Start 10/25/17 at 17:45; Stop 10/29/17 at 15 :52; Status DC Prochlorperazine (Compazine Supp) 25 mg Q12H PRN RECTAL NAUSEA OR VOMITING; Start 10/25/17 at 17:45 Zolpidem Tartrate (Ambien) 5 mg HS PRN PO INSOMNIA Last administered on 23:00; Start 10/25/17 at 17:45 Heparin Sodium (Porcine) (Heparin Inj) 5,000 units Q12H SQ ; Start 10/25/17 at 17:45; Stop 10/25/17 at 17:50; Status DC Acetaminophen (Tylenol) 650 mg Q6H PRN PO PAIN SCALE 1 TO 2; Start 10/25/17 at 17:45 Oxycodone HCl (Roxicodone) 10 mg Q4H PRN PO PAIN SCALE 6 TO 10 Last administered on 10/30/17 08:17; Start 10/25/17 at 17:45 Morphine Sulfate (Morphine Inj) 2 mg Q3H PRN IV PUSH Pain 3-5; if unable to take PO Last administered on 10/26/17 00:54; Start 10/25/17 at 17:45; Stop 10/28/17 at 09:46; Status DC Morphine Sulfate (Morphine Inj) 4 mg Q3H PRN IV PUSH Pain 6-10;if unable to take PO Last administered on 10/28/17 03:16; Start 10/25/17 at 17:45; Stop 10/28/17 at 09:46; Status DC Oxycodone HCl (Roxicodone) 5 mg Q4H PRN PO PAIN SCALE 3 TO 5; Start 10/25/17 at 17:45 Naloxone HCl (Narcan Inj) 0.4 mg UNSCH PRN IV PUSH SEE LABEL COMMENTS; Start 10/25/17 at 17:45 Senna/Docusate Sodium (Mariam-Colace) 1 tab BID PO Last administered on 08:19; Start 10/25/17 at 21:00 Magnesium Hydroxide (Milk Of Magnesia Liq) 30 ml Q12H PRN PO Mild constipation ; Start 10/25/17 at 17:45 Sennosides (Senokot) 17.2 mg Q12H PRN PO Moderate constipation; Start at 17:45 Bisacodyl (Dulcolax Supp) 10 mg DAILY PRN RECTAL SEVERE CONSITIPATION; Start 10/25/17 at 17:45 Lactulose (Lactulose Liq) 30 ml DAILY PRN PO SEVERE CONSITIPATION; Start 10/25 at 17:45 Piperacillin Sod/ Tazobactam Sod 100 ml @ 200 mls/hr Q6H IV Last administered on 10/29/17 11:49; Start 10/26/17 at 00:00; Stop 10/29/17 at 12:37; Status DC Heparin Sodium (Porcine) (Heparin Inj) 5,000 units Q8H SQ Last administered on 10/28/17 21:33; Start 10/25/17 at 22:00; Stop 10/28/17 at 23:59; Status DC Amlodipine Besylate (Norvasc) 2.5 mg DAILY PO Last administered on 10/27/17 08:49; Start 10/26/17 at 09:00; Stop 10/27/17 at 13:07; Status DC Atorvastatin Calcium (Lipitor) 10 mg DAILY PO Last administered on 10/30/17 08:19; Start 10/26/17 at 09:00 Carvedilol (Coreg) 25 mg Q12HR PO Last administered on 10/30/17 08:18; Start 10/25/17 at 21:00 Folic Acid (Folate) 1 mg DAILY PO Last administered on 10/30/17 08:17; Start 10/26/17 at 09:00 Furosemide (Lasix) 40 mg BID PO Last administered on 10/30/17 08:18; Start 10/25/17 at 21:00 Insulin Detemir (Levemir Inj) 28 units BID SQ Last administered on 10/28/17 08:10; Start 10/25/17 at 21:00 Lisinopril (Prinivil) 40 mg DAILY PO Last administered on 10/30/17 08:18; Start 10/26/17 at 09:00 Pantoprazole Sodium (Protonix) 40 mg DAILY PO Last administered on 10/30/17 08:19; Start 10/26/17 at 09:00 Potassium Chloride (KCl) 10 meq BID PO Last administered on 10/30/17 08:19; Start 10/25/17 at 21:00 Nicotine (Habitrol 7 Mg Patch.24 Hr) 1 patch DAILY T-DERMAL Last administered on 10/30/17 08:18; Start 10/25/17 at 09:00 Miscellaneous Information 1 DAILY T-DERMAL Last administered on 10/30/17 08: 20; Start 10/26/17 at 09:00 Miscellaneous (Pill Splitter) 1 ea UNSCH PRN OTHER SEE LABEL COMMENTS; Start 10/25/17 at 19:00 Diphenhydramine HCl (Benadryl) 50 mg ONCE ONCE PO Last administered on 21:54; Start 10/25/17 at 20:00; Stop 10/25/17 at 20:01; Status DC Influenza Virus Vaccine (Flu (Quadrivalent) Vaccine Inj) 0.5 ml ONCE ONCE IM ; Start 10/26/17 at 10:00; Stop 10/26/17 at 10:01; Status DC Pneumococcal Polyvalent Vaccine (Pneumovax-23 Inj) 25 mcg ONCE ONCE IM ; Start 10/26/17 at 10:00; Stop 10/26/17 at 10:01; Status DC Vancomycin HCl 1250 mg/Sodium Chloride 262.5 ml @ 250 mls/hr Q12H IV Last administered on 10/29/17 18:47; Start 10/26/17 at 06:00; Stop 10/29/17 at 20 :42; Status DC Miscellaneous Information SPECIFIC LAB TO BE [place]... ONCE ONCE .XX ; Start at 05:45; Stop 10/27/17 at 05:46; Status DC Lactated Ringer's 1,000 ml @ 30 mls/hr Q24H PRN IV SEE LABEL COMMENTS; Start 10/26/17 at 01:45; Stop 10/27/17 at 20:05; Status DC Miscellaneous Information SPECIFIC LAB TO BE [place]... ONCE ONCE .XX ; Start at 17:45; Stop 10/27/17 at 17:46; Status Cancel Amlodipine Besylate (Norvasc) 5 mg DAILY PO Last administered on 10/30/17 08: 17; Start 10/28/17 at 09:00 Miscellaneous Information SPECIFIC LAB TO BE [place]... ONCE ONCE .XX Last administered on 10/28/17 05:45; Start 10/28/17 at 05:45; Stop 10/28/17 at 05 :46; Status DC Etomidate (Amidate Inj) 20 mg STK-MED ONCE .ROUTE ; Start 10/27/17 at 17:09; Stop 10/27/17 at 17:10; Status DC Vancomycin HCl (Vancomycin Inj) 1,000 mg STK-MED ONCE .ROUTE Last administered on 10/27/17 18:18; Start 10/27/17 at 17:11; Stop 10/27/17 at 17:12; Status DC Bupivacaine HCl (Marcaine Pf 0.5% Inj) 30 ml STK-MED ONCE .ROUTE Last administered on 10/27/17 17:36; Start 10/27/17 at 17:11; Stop 10/27/17 at 17 :12; Status DC Lidocaine HCl (Xylocaine 1% Inj (50 ml)) 50 ml STK-MED ONCE .ROUTE Last administered on 10/27/17 17:36; Start 10/27/17 at 17:11; Stop 10/27/17 at 17 :12; Status DC Miscellaneous Information (Post-op Orders (for Pharmacy)) STAT ONCE XX ; Start 10/27/17 at 18:45; Stop 10/27/17 at 18:46; Status DC Miscellaneous Information ALL NURSING DEPARTME... UNSCH PRN .XX SEE LABEL COMMENTS; Start 10/27/17 at 19:00; Stop 10/28/17 at 18:59; Status DC Miscellaneous Information ALL NURSING DEPARTME... UNSCH PRN .XX SEE LABEL COMMENTS; Start 10/27/17 at 20:15; Stop 10/28/17 at 20:14; Status DC Morphine Sulfate (Morphine Inj) 2 mg Q3H PRN IV PUSH Pain 3-5; if unable to take PO; Start 10/28/17 at 10:00 Morphine Sulfate (Morphine Inj) 4 mg Q3H PRN IV PUSH Pain 6-10;if unable to take PO; Start 10/28/17 at 10:00 Miscellaneous Information SPECIFIC LAB TO BE [place]... ONCE ONCE .XX Last administered on 10/29/17 17:45; Start 10/29/17 at 17:45; Stop 10/29/17 at 17 :46; Status DC Rivaroxaban (Xarelto) 20 mg DAILY PO Last administered on 10/30/17 08:19; Start 10/29/17 at 09:00 Sodium Chloride (NS Flush) See Protocol DAILY IV FLUSH ; Start 10/30/17 at 09: 00 Sodium Chloride (NS Flush) See Protocol UNSCH PRN IV FLUSH SEE PROTOCOL TABLE; Start 10/29/17 at 15:30 Heparin Sodium (Porcine) (Heparin Central Flush) See Protocol DAILY IV FLUSH ; Start 10/30/17 at 09:00 Heparin Sodium (Porcine) (Heparin Central Flush) See Protocol UNSCH PRN IV FLUSH SEE PROTOCOL TABLE; Start 10/29/17 at 15:30 Sodium Chloride (NS Flush) UNSCH PRN IV FLUSH SEE PROTOCOL TABLE; Start 10/29 at 15:30 Ondansetron HCl (Zofran Inj) 8 mg Q4H PRN IVP NAUSEA OR VOMITING; Start at 16:00 Metoclopramide HCl (Reglan Inj) 10 mg Q8H PRN IV PUSH NAUSEA/VOMITING; Start 10/29/17 at 16:00 Docusate Sodium (Colace) 100 mg TID PO Last administered on 10/30/17 08:18; Start 10/29/17 at 18:00 Magnesium Hydroxide (Milk Of Magnree Liq) 30 ml ONCE ONCE PO Last administered on 10/29/17 17:10; Start 10/29/17 at 16:30; Stop 10/29/17 at 16 :57; Status DC Polyethylene Glycol (Miralax) 17 gm DAILY PO Last administered on 10/29/17 18 :43; Start 10/29/17 at 16:30 Vancomycin HCl 1000 mg/Sodium Chloride 250 ml @ 250 mls/hr Q12H IV Last administered on 10/30/17 04:15; Start 10/30/17 at 06:00 Miscellaneous Information SPECIFIC LAB TO BE ... ONCE ONCE .XX ; Start at 05:45; Stop 11/01/17 at 05:46 Vascular Central Line Catheter: Yes Assessment to: Continue Line: PICC Side: Right A/P Assessment and Plan 1. Right Diabetic Foot ulcer/Osteomyelitis, MRI right foot reviewed and shows normal signal and abnormal enhancement involving the second toe suspicious for osteomyelitis, degenerative changes involving the first distal phalanx with some questionable increased signal in the first proximal phalanx. on antibiotics Zosyn and Vancomycin Seen by Podiatry specialist, Right foot second digit amputation with possible second metatarsal head resection and right hallux excision of ulcer with excision of head of proximal phalanx of hallux. as per ID specialist to continue Vancomycin and Zosyn and following culture when Podiatry perform the Surgery. --Status post procedure with podiatry on October 27 2. Chronic Systolic Heart Failure EF 30%, non decompensated, Echo 10/20/16 with EF 30%. Patient is supposed to be wearing a LifeVest, Patient scheduled to have AICD placed previously but surgery held due to infection continue Home Medicines Lisinopril 40 mg daily, Lasix 40 mg daily, Coreg 25 mg BID, Norvasc 2.5 mg daily, KlorCon 10 meq BID, Aspirin on hold for Surgery. increased Amlodipine to 5 mg daily and will try to remove IV fluids after surgery to decrease blood pressure. 3. DM II continue sliding scale, hemoglobin A1C 9.5 4. History of Recurrent DVT , on hold Xarelto 20 mg daily for Surgery. 5. Hyperlipidemia resume Home Lipitor 6. GERD on PPIs Malignant medical noncompliance MEDS FOR NAUSEA MEDS FOR CONSTIPATION DVT prophylaxis - XARELTO 20MG PO DAILY Discharge Planning ONCE SET UP FOR ANTIBIOTICS Sharad Tapia DO Oct 30, 2017 12:05
[2017-10-30] MEDS ORDERED: CARV12.5 PO (12:15)
[2017-10-30] MEDS ORDERED: DOCU1CAP39 PO (12:15)
[2017-10-30] MEDS ORDERED: LIPI10TA PO (12:15)
[2017-10-30] MEDS ORDERED: FURO1TAB60 PO (12:15)
[2017-10-30] MEDS ORDERED: OXYC-392 PO (12:15)
[2017-10-30] MEDS ORDERED: NICO1DIS8 T-DERMAL (12:15)
[2017-10-30] MEDS ORDERED: FOLI1TAB6 PO (12:15)
[2017-10-30] MEDS ORDERED: KLOR10TA PO (12:15)
[2017-10-30] MEDS ORDERED: DIPH50CA PO (12:15)
[2017-10-30] MEDS ORDERED: AMLO5 PO (12:15)
[2017-10-30] MEDS ORDERED: SENN187 PO (12:15)
[2017-10-30] MEDS ORDERED: XARE20TA PO (12:15)
[2017-10-30] MEDS ORDERED: LANTUS2P SQ (12:15)
[2017-10-30] MEDS ORDERED: POLY17S PO (12:15)
[2017-10-30] MEDS ORDERED: ASPI-516 CHEW (12:15)
[2017-10-30] MEDS ORDERED: LISI-515 PO (12:15)
[2017-10-30] MEDS ORDERED: PANT40TA3 PO (12:15)
--- NOTE | 2017-10-30 12:18 | HHI.DS ---
Discharge Summary Admission Date Oct 25, 2017 at 16:31 Discharge Date: Oct 30, 2017 Admitting Diagnosis osteo right foot (1) DM (diabetes mellitus), type 2, uncontrolled w/neurologic complication ICD Code: E11.41 - DM (diabetes mellitus), type 2, uncontrolled w/neurologic complication Diagnosis: Secondary Status: Acute (2) Non compliance with medical treatment ICD Code: Z91.19 - Non compliance with medical treatment Diagnosis: Secondary Status: Acute (3) Chronic foot ulcer ICD Code: L97.509 - Chronic foot ulcer Diagnosis: Principal Status: Acute (4) Personal history of tobacco use, presenting hazards to health ICD Code: Z87.891 - Personal history of tobacco use, presenting hazards to health Diagnosis: Secondary Status: Acute (5) Right foot ulcer ICD Code: L97.519 - Right foot ulcer Diagnosis: Principal Status: Acute (6) Osteomyelitis ICD Code: M86.9 - Osteomyelitis, unspecified Diagnosis: Principal Status: Acute (7) Diabetic foot infection ICD Code: E11.69 - Diabetic foot infection; L08.9 - Local infection of the skin and subcutaneous tissue, unspecified Diagnosis: Secondary Status: Acute (8) DVT (deep venous thrombosis) ICD Code: I82.409 - Acute embolism and thrombosis of unspecified deep veins of unspecified lower extremity Diagnosis: Secondary Status: Acute (9) Pulmonary emboli ICD Code: I26.99 - Other pulmonary embolism without acute cor pulmonale Status: Chronic Procedures DATE: 10/27/2017. SURGEON: Xiao Peoples DPM. PERCHER: None. PREOPERATIVE DIAGNOSIS: 1. Right second digit osteomyelitis. 2. Right hallux proximal phalanx osteomyelitis. 3. Right hallux hammer toe contraction at interphalangeal joint. 4. Right second digit hammer toe contraction at interphalangeal joint. POSTOPERATIVE DIAGNOSIS: 1. Right second digit osteomyelitis. 2. Right hallux proximal phalanx osteomyelitis. 3. Right hallux hammer toe contraction at interphalangeal joint. 4. Right second digit hammer toe contraction at interphalangeal joint. OPERATIVE PROCEDURE PERFORMED: 1. Second digit amputation at metatarsophalangeal joint. 2. Right hallux interphalangeal joint arthroplasty at proximal phalanx head with excision of ulcer. ANESTHESIA: General with a local infiltration of a 1:1 mixture of 0.5% Marcaine plain and 1% lidocaine plain infiltrated about the right foot in fashion. HEMOSTASIS: Ankle tourniquet set at 250 mmHg. ESTIMATED BLOOD LOSS: 1 cc. MATERIALS: 2-0 and 3-0 Prolene. INJECTABLES: None. COMPLICATIONS: None. Brief History - From Admission This is a 52yo male with a PMHX negative for congestive heart failure with CHF EF of 30%, IDDM, hx of DVT on Xarelto. hypertension, dyslipidemia and GERD who presents to [facility] ED with complaints of worsening right toe infection. He reports he was in the ED several days ago and was treated with antibiotics. He complains of worsening pain in the right second toe and associated non-healing wound. He denies any fever. He reports night sweats. He states his sugars have been elevated at home. In the ED, MRI of the right foot was obtained and was suspicious for osteomyelitis. CBC/BMP: 10/30/17 0450 10/30/17 0450 Significant Findings Laboratory Tests Test 10/28/17 11:05 10/29/17 09:51 10/29/17 17:16 10/30/17 04:50 Vancomycin Level Trough 28.0 MCG/ML (5.0-10.0) 20.6 MCG/ML (5.0-10.0) Red Blood Count 4.36 MIL/MM3 (4.50-5.90) 4.05 MIL/MM3 (4.50-5.90) Hemoglobin 12.0 GM/DL (13.0-17.0) 11.1 GM/DL (13.0-17.0) Hematocrit 36.3 % (39.0-51.0) 33.9 % (39.0-51.0) Neutrophils (%) (Auto) 72.4 % (16.0-70.0) Monocytes (%) (Auto) 10.6 % (0.0-8.0) 11.6 % (0.0-8.0) Random Glucose 60 MG/DL (74-106) 123 MG/DL (74-106) Total Protein 6.1 GM/DL (6.4-8.2) 6.0 GM/DL (6.4-8.2) Albumin 2.1 GM/DL (3.4-5.0) 2.2 GM/DL (3.4-5.0) Calcium Level 7.4 MG/DL (8.5-10.1) 7.4 MG/DL (8.5-10.1) Phosphorus Level 1.9 MG/DL (2.5-4.9) 1.8 MG/DL (2.5-4.9) Aspartate Amino Transf (AST/SGOT) 52 U/L (15-37) Potassium Level 3.1 MEQ/L (3.5-5.1) Protein Corrected Calcium 7.9 MG/DL (8.5-10.1) 8.0 MG/DL (8.5-10.1) Eosinophils (%) (Auto) 4.1 % (0.0-4.0) Estimat Glomerular Filtration Rate 59 ML/MIN (>89) Imaging Last Impressions Chest X-Ray 10/29/17 0000 Signed Impressions: Service Date/Time: Sunday, October 29, 2017 15:32 - CONCLUSION: Normal examination. The right-sided PICC line is in good position. Mild pulmonary vascular prominence Mp Monteiro MD Foot X-Ray 10/27/17 0000 Signed Impressions: Service Date/Time: Friday, October 27, 2017 18:54 - CONCLUSION: Status post surgery as described above. Clifford Priest MD Foot MRI 10/25/17 0000 Signed Impressions: Service Date/Time: Wednesday, October 25, 2017 13:30 - CONCLUSION: 1. There is abnormal signal and abnormal enhancement involving the second toe. This would be suspicious for osteomyelitis. 2. There are degenerative changes in involving the first distal phalanx with some questionable increased signal in the first proximal phalanx. However no definite abnormal enhancement is seen to suggest osteomyelitis. This may be related to degenerative type changes Greg Mazariegos MD PE at Discharge GENERAL: Awake alert oriented talkative and cooperative. SKIN: Warm and dry. Right foot is dressed --multiple tattoos HEAD: Atraumatic. Normocephalic. EYES: Pupils equal and round. No scleral icterus. No injection or drainage. Extraocular muscles intact ENT: No nasal bleeding or discharge. Mucous membranes pink and moist. Tongue is midline NECK: Trachea midline. No JVD. Supple CARDIOVASCULAR: IRRegular rate and rhythm. S1 and S2 no S3 or S4 RESPIRATORY: No accessory muscle use. Clear to auscultation. Breath sounds equal bilaterally. GASTROINTESTINAL: Abdomen soft, non-tender, nondistended. Hepatic and splenic margins not palpable. MUSCULOSKELETAL: Extremities without clubbing, cyanosis, or edema. No obvious deformities. Left foot has a TMA-- right foot is dressed PICC IN PLACE RIGHT UE NEUROLOGICAL: Awake and alert. No obvious cranial nerve deficits. Motor grossly within normal limits. 4out of 5 muscle strength in the arms and legs. Normal speech. PSYCHIATRIC: Appropriate mood and affect; insight and judgment normal. Hospital Course This is a pleasant 52 y/o male with CHF EF 30%, Histor of DVT on Xarelto, Hypertension, Hyperlipidemia GERD, who came to ER with worsening Right toe infection, failed outpatient antibiotic management, his DM II is been uncontrolled, MRI of the right foot was obtained and was suspicious for osteomyelitis. Seen by Podiatry specialist, Right foot second digit amputation with possible second metatarsal head resection and right hallux excision of ulcer with excision of head of proximal phalanx of hallux. Stable in his bedroom, no complaint awaiting for procedure; 10/27: Seen by ID specialist Doctor Long, with diagnosis of Osteomyelitis of the second toe on right foot, DM recommended to continue Vancomycin and Zosyn, Culture when Podiatry perform surgery. seen in his bedroom adjusted anti-hypertensives, no nausea, vomit or diarrhea. 10-28 had procedure with podiatry on right foot October 27 Will restart surrounding to tomorrow 20 mg by mouth daily A.m. labs Continue on vancomycin and Zosyn per infectious disease Podiatry input appreciated 10-29 not cleared by ID YET WILL NEED PICC AND FOLLOW UP PATRIZIA RN AND PT HAVING SOME NAUSEA- MEDS ADJUSTED AM LABS - CLEARED BY ID FOR DC TODAY HAS PICC IN PLACE WANTS TO GO HOME TODAY PATRIZIA RN AND PT CONTINUE VANCOMYCIN Pt Condition on Discharge: Good Discharge Disposition: Disch w/ Home Health Serv Discharge Time: > 30 minutes Discharge Instructions DIET: Follow Instructions for: Heart Healthy Diet, Diabetic Diet Speech Therapy-Diet Recommends: Regular Activities you can perform: Weight Bearing as Zeeshan, Partial Weight Bearing Follow up Referrals: Appointment for Follow Up - [address] Kathrine Calero PCP Follow-up - 3-5 Days Podiatry - 3-5 Days with Xiao Peoples DPM New Medications: Amlodipine (Norvasc) 5 Mg Tab 5 MG PO DAILY for Blood Pressure Management, #30 TAB Diphenhydramine HCl (Diphenhydramine HCl) 50 Mg Cap 50 MG PO Q12H for Allergies, #60 CAP TAKE PRIOR TO VANCOMYCIN Docusate Sodium (Dok) 100 Mg Cap 100 MG PO TID for Constipation, #90 CAP Folic Acid (Folic Acid) 1 Mg Tablet 1 MG PO DAILY for Nutritional Supplement, #30 TAB Nicotine (Eq Nicotine Step 3) 7 Mg/24 Hour Dis 1 PATCH T-DERMAL DAILY for TOBACCO, #30 PATCH Oxycodone (Oxycodone) 5 Mg Tab 10 MG PO Q4H PRN for PAIN SCALE 6 TO 10, #40 TAB Polyethylene Glycol 3350 Powder (Polyethylene Glycol 3350 Powder) 17 Gram Pow 17 GM PO DAILY for Constipation, #1 BOTTLE Sennosides (Senna-Lax) 8.6 Mg Tab 17.2 MG PO Q12H PRN for Moderate constipation, #120 TAB Continued Medications: Aspirin (Aspirin) 81 Mg Chew 81 MG CHEW DAILY for Blood Clot Prevention, #30 TAB 0 Refills (This prescription has been renewed) Atorvastatin (Lipitor) 10 Mg Tab 10 MG PO DAILY for Cholesterol Management, #30 TAB (This prescription has been renewed) Carvedilol (Coreg) 12.5 Mg Tab 25 MG PO Q12HR for Blood Pressure Management, #60 TAB (This prescription has been renewed) Furosemide (Lasix) 40 Mg Tab 40 MG PO BID for CHF, #60 TAB 0 Refills (This prescription has been renewed) Insulin Glargine Inj (Lantus Inj) 1,000 Unit/10 Ml Vial 28 UNITS SQ BID for Blood Sugar Management, #5 VIAL 0 Refills (This prescription has been renewed) Lisinopril (Lisinopril) 20 Mg Tab 40 MG PO DAILY for Blood Pressure Management, #60 TAB (This prescription has been renewed) Pantoprazole (Pantoprazole) 40 Mg Tab 40 MG PO DAILY for Reflux, #30 TAB 0 Refills (This prescription has been renewed ) Potassium Chloride ER (Klor-Con 10) 10 Meq Tab 10 MEQ PO BID for Electrolyte Replacement, #60 TAB 0 Refills (This prescription has been renewed) Rivaroxaban (Xarelto) 20 Mg Tab 20 MG PO DAILY@1600 for Blood Clot Prevention, #30 TAB 0 Refills (This prescription has been renewed) Discontinued Medications: Amlodipine (Norvasc) 5 Mg Tab 2.5 MG PO DAILY for Blood Pressure Management, #30 TAB Folic Acid (Folic Acid) 0.8 Mg Tab 1000 MCG PO DAILY for Nutritional Supplement, TAB 0 Refills Sharad Tapia DO Oct 30, 2017 12:18
--- NOTE | 2017-10-30 12:40 | HHI.FF ---
Face to Face Verification Diagnosis: (1) Amputated toe of left foot (2) DM (diabetes mellitus), type 2, uncontrolled w/neurologic complication (3) Non compliance with medical treatment (4) Chronic foot ulcer (5) Personal history of tobacco use, presenting hazards to health (6) Osteomyelitis Home Health Nursing Order: Wound care and dressing changes Nursing assessment with vital signs IV medication administration I have seen patient Guerrero Hu on 10/30/17. My clinical findings support the need for the requested home health care services because: Ltd mobility - disease progression Med compliance is questionable Limited ability to care for self I certify that my clinical findings support that this patient is homebound because: Impaired cognitive ability/safety Unsteady gait/balance Sharad Tapia DO Oct 30, 2017 12:40
[2017-10-30] MEDS ORDERED: ALTEPLASE RECOMBINANT 2 MG VIAL INTRACATH PRN (14:30)
--- NOTE | 2017-10-30 15:07 | RADRPT ---
EXAM DATE/TIME: 10/30/2017 14:34 [facility] COMPARISON: CHEST SINGLE AP, October 29, 2017, 15:32. INDICATIONS : Evaluate central line placement. MEDICAL HISTORY : Gastroesophageal reflux disease. Congestive heart failure. Hypertension. SURGICAL HISTORY : Spinal surgery. ENCOUNTER: Subsequent ACUITY: 1 day PAIN SCORE: 0/10 LOCATION: Bilateral chest FINDINGS: There is a right-sided PICC line with tip obscured beyond the very proximal SVC. Linear opacities are again noted in the left lower lung zone. Cardiomediastinal contours are stable. Remainder of the exa m is unchanged. CONCLUSION: 1. Right-sided PICC line tip obscured beyond the proximal SVC. 2. No acute abnormality or significant interval change. Dl Mazariegos MD on October 30, 2017 at 15:04 Board Certified Radiologist. This report was verified electronically.
[2017-10-31 04:05] VITALS: PULSE 62
[2017-10-31] MEDS ORDERED: PHARMACY ORDERED LAB ONE (05:45)
[2017-10-31] MEDS: diphenhydrAMINE HCL 50 MG CAP PO SCH (06:00)
[2017-10-31] MEDS: SODIUM CHLOR 0.9% 1000 ML INJ 1,000 ML IV SCH (06:00)
[2017-10-31 08:00] VITALS: BP 126/78; PULSE 83; RESP 17; TEMP 96.8; O2SAT 99
[2017-10-31] MEDS: INSULIN ASPART SUPPLEMENTAL SCALE SQ SCH ×2 (08:00→11:20)
[2017-10-31] MEDS: INSULIN DETEMIR 100 UNITS/ML VIAL SQ SCH (09:00)
[2017-10-31] MEDS: REMOVE OLD PATCH T-DERMAL SCH (09:00)
[2017-10-31] MEDS: SODIUM CHLORIDE 0.9% FLUSH 10 ML FLUSH IV FLUSH SCH ×2 (09:00)
[2017-10-31] MEDS: RIVAROXABAN 20 MG TAB PO SCH (09:00)
[2017-10-31] MEDS: amLODIPine BESYLATE 5 MG TAB PO SCH (09:10)
[2017-10-31] MEDS: POTASSIUM CHLORIDE 10 MEQ CONTROLLED RELEASE TAB PO SCH (09:10)
[2017-10-31] MEDS: POLYETHYLENE GLYCOL 17 GM PKG PO SCH (09:10)
[2017-10-31] MEDS: DOCUSATE SODIUM 100 MG CAP PO SCH ×2 (09:10→11:21)
[2017-10-31] MEDS: CARVEDILOL 12.5 MG TAB PO SCH (09:10)
[2017-10-31] MEDS: FUROSEMIDE 40 MG TAB PO SCH (09:10)
[2017-10-31] MEDS: ATORVASTATIN 10 MG TAB PO SCH (09:11)
[2017-10-31] MEDS: LISINOPRIL 20 MG TAB PO SCH (09:11)
[2017-10-31] MEDS: DOCUSATE SODIUM 50 MG/SENNA 8.6 MG TAB PO SCH (09:11)
[2017-10-31] MEDS: PANTOPRAZOLE SOD 40 MG DELAYED RELEASE TAB PO SCH (09:11)
[2017-10-31] MEDS: FOLIC ACID 1 MG TAB PO SCH (09:11)
[2017-10-31] MEDS: NICOTINE 7 MG/24 HR PATCH T-DERMAL SCH (09:11)
[2017-10-31 12:00] VITALS: BP 129/80; PULSE 78; RESP 18; TEMP 97.4; O2SAT 99
--- NOTE | 2017-10-31 12:23 | HHI.PR ---
Subjective Remarks This is a pleasant 52 y/o male with CHF EF 30%, Histor of DVT on Xarelto, Hypertension, Hyperlipidemia GERD, who came to ER with worsening Right toe infection, failed outpatient antibiotic management, his DM II is been uncontrolled, MRI of the right foot was obtained and was suspicious for osteomyelitis. Seen by Podiatry specialist, Right foot second digit amputation with possible second metatarsal head resection and right hallux excision of ulcer with excision of head of proximal phalanx of hallux. Stable in his bedroom, no complaint awaiting for procedure; 10/27: Seen by ID specialist Doctor Long, with diagnosis of Osteomyelitis of the second toe on right foot, DM recommended to continue Vancomycin and Zosyn, Culture when Podiatry perform surgery. seen in his bedroom adjusted anti-hypertensives, no nausea, vomit or diarrhea. 10-28 had procedure with podiatry on right foot October 27 Will restart surrounding to tomorrow 20 mg by mouth daily A.m. labs Continue on vancomycin and Zosyn per infectious disease Podiatry input appreciated 10-29 not cleared by ID YET WILL NEED PICC AND FOLLOW UP DW RN AND PT HAVING SOME NAUSEA- MEDS ADJUSTED AM LABS 10-30 CLEARED BY ID FOR DC TODAY HAS PICC IN PLACE WANTS TO GO HOME TODAY PATRIZIA RN AND PT 10-31 patient will need a new PICC since his old PICC was not able to be opened with Cathflo on multiple occasions Patient is still been discharged since yesterday Patient still wants to go home Has been set up already to do IV vancomycin at home Will discharge once has new PICC that is functional Objective Vitals Vital Signs Date Time Temp Pulse Resp B/P (MAP) Pulse Ox O2 Delivery O2 Flow Rate FiO2 10/31/17 08:00 96.8 83 17 126/78 (94) 99 10/31/17 04:05 62 10/30/17 20:23 98.7 67 18 120/79 (93) 95 10/30/17 16:00 96.6 79 18 129/73 (91) 99 10/30/17 13:05 18 I/O 10/30/17 10/30/17 10/30/17 10/31/17 10/31/17 10/31/17 07:00 15:00 23:00 07:00 15:00 23:00 Intake Total 1830 ml 153 ml Output Total 400 ml Balance 1430 ml 153 ml Intake Oral 580 ml IV Total 1250 ml 153 ml Output Urine Total 400 ml Result Diagram: 10/30/17 0450 10/30/17 0450 Other Results Laboratory Tests Test 10/29/17 09:51 10/29/17 17:16 10/30/17 04:50 White Blood Count 8.1 TH/MM3 7.3 TH/MM3 Red Blood Count 4.36 MIL/MM3 4.05 MIL/MM3 Hemoglobin 12.0 GM/DL 11.1 GM/DL Hematocrit 36.3 % 33.9 % Mean Corpuscular Volume 83.3 FL 83.6 FL Mean Corpuscular Hemoglobin 27.6 PG 27.3 PG Mean Corpuscular Hemoglobin Concent 33.1 % 32.7 % Red Cell Distribution Width 16.0 % 16.2 % Platelet Count 183 TH/MM3 161 TH/MM3 Mean Platelet Volume 9.4 FL 8.8 FL Neutrophils (%) (Auto) 72.4 % 69.9 % Lymphocytes (%) (Auto) 13.1 % 13.9 % Monocytes (%) (Auto) 10.6 % 11.6 % Eosinophils (%) (Auto) 3.5 % 4.1 % Basophils (%) (Auto) 0.4 % 0.5 % Neutrophils # (Auto) 5.8 TH/MM3 5.1 TH/MM3 Lymphocytes # (Auto) 1.1 TH/MM3 1.0 TH/MM3 Monocytes # (Auto) 0.9 TH/MM3 0.8 TH/MM3 Eosinophils # (Auto) 0.3 TH/MM3 0.3 TH/MM3 Basophils # (Auto) 0.0 TH/MM3 0.0 TH/MM3 CBC Comment DIFF FINAL DIFF FINAL Differential Comment Blood Urea Nitrogen 8 MG/DL 10 MG/DL Creatinine 0.89 MG/DL 1.27 MG/DL Random Glucose 60 MG/DL 123 MG/DL Total Protein 6.1 GM/DL 6.0 GM/DL Albumin 2.1 GM/DL 2.2 GM/DL Calcium Level 7.4 MG/DL 7.4 MG/DL Phosphorus Level 1.9 MG/DL 1.8 MG/DL Magnesium Level 1.5 MG/DL 1.5 MG/DL Alkaline Phosphatase 74 U/L 74 U/L Aspartate Amino Transf (AST/SGOT) 52 U/L 37 U/L Alanine Aminotransferase (ALT/SGPT) 71 U/L 56 U/L Total Bilirubin 0.5 MG/DL 0.6 MG/DL Sodium Level 137 MEQ/L 136 MEQ/L Potassium Level 3.1 MEQ/L 3.6 MEQ/L Chloride Level 102 MEQ/L 104 MEQ/L Carbon Dioxide Level 27.7 MEQ/L 24.1 MEQ/L Anion Gap 7 MEQ/L 8 MEQ/L Estimat Glomerular Filtration Rate 89 ML/MIN 59 ML/MIN Protein Corrected Calcium 7.9 MG/DL 8.0 MG/DL Vancomycin Level Trough 20.6 MCG/ML Imaging Last Impressions Chest X-Ray 10/30/17 0000 Signed Impressions: Service Date/Time: Monday, October 30, 2017 14:34 - CONCLUSION: 1. Right-sided PICC line tip obscured beyond the proximal SVC. 2. No acute abnormality or significant interval change. Dl Mazariegos MD Foot X-Ray 10/27/17 0000 Signed Impressions: Service Date/Time: Friday, October 27, 2017 18:54 - CONCLUSION: Status post surgery as described above. Clifford Priest MD Foot MRI 10/25/17 0000 Signed Impressions: Service Date/Time: Wednesday, October 25, 2017 13:30 - CONCLUSION: 1. There is abnormal signal and abnormal enhancement involving the second toe. This would be suspicious for osteomyelitis. 2. There are degenerative changes in involving the first distal phalanx with some questionable increased signal in the first proximal phalanx. However no definite abnormal enhancement is seen to suggest osteomyelitis. This may be related to degenerative type changes Greg Mazariegos MD Objective Remarks GENERAL: Awake alert oriented talkative and cooperative. SKIN: Warm and dry. Right foot is dressed --multiple tattoos HEAD: Atraumatic. Normocephalic. EYES: Pupils equal and round. No scleral icterus. No injection or drainage. Extraocular muscles intact ENT: No nasal bleeding or discharge. Mucous membranes pink and moist. Tongue is midline NECK: Trachea midline. No JVD. Supple CARDIOVASCULAR: IRRegular rate and rhythm. S1 and S2 no S3 or S4 RESPIRATORY: No accessory muscle use. Clear to auscultation. Breath sounds equal bilaterally. GASTROINTESTINAL: Abdomen soft, non-tender, nondistended. Hepatic and splenic margins not palpable. MUSCULOSKELETAL: Extremities without clubbing, cyanosis, or edema. No obvious deformities. Left foot has a TMA-- right foot is dressed PICC IN PLACE RIGHT UE NEUROLOGICAL: Awake and alert. No obvious cranial nerve deficits. Motor grossly within normal limits. 4out of 5 muscle strength in the arms and legs. Normal speech. PSYCHIATRIC: Appropriate mood and affect; insight and judgment normal. Procedures DATE: 10/27/2017. SURGEON: Xiao Peoples DPM. SENIOR HR MANAGER: None. PREOPERATIVE DIAGNOSIS: 1. Right second digit osteomyelitis. 2. Right hallux proximal phalanx osteomyelitis. 3. Right hallux hammer toe contraction at interphalangeal joint. 4. Right second digit hammer toe contraction at interphalangeal joint. POSTOPERATIVE DIAGNOSIS: 1. Right second digit osteomyelitis. 2. Right hallux proximal phalanx osteomyelitis. 3. Right hallux hammer toe contraction at interphalangeal joint. 4. Right second digit hammer toe contraction at interphalangeal joint. OPERATIVE PROCEDURE PERFORMED: 1. Second digit amputation at metatarsophalangeal joint. 2. Right hallux interphalangeal joint arthroplasty at proximal phalanx head with excision of ulcer. ANESTHESIA: General with a local infiltration of a 1:1 mixture of 0.5% Marcaine plain and 1% lidocaine plain infiltrated about the right foot in fashion. HEMOSTASIS: Ankle tourniquet set at 250 mmHg. ESTIMATED BLOOD LOSS: 1 cc. MATERIALS: 2-0 and 3-0 Prolene. INJECTABLES: None. COMPLICATIONS: None. Medications and IVs Current Medications Gadodiamide (Omniscan Pf Inj) 14 ml STK-MED ONCE IVCONTRAST Last administered on 10/25/17 11:36; Start 10/25/17 at 11:36; Stop 10/25/17 at 13:59; Status DC Morphine Sulfate (Morphine Inj) 4 mg ONCE ONCE IV PUSH Last administered on 14:25; Start 10/25/17 at 14:30; Stop 10/25/17 at 14:31; Status DC Piperacillin Sod/ Tazobactam Sod 100 ml @ 200 mls/hr ONCE ONCE IV Last administered on 10/25/17 17:52; Start 10/25/17 at 15:30; Stop 10/25/17 at 15 :59; Status DC Dextrose (D50w (Vial) Inj) 50 ml UNSCH PRN IV PUSH HYPOGLYCEMIA-SEE COMMENTS Last administered on 10/29/17 10:07; Start 10/25/17 at 17:45 Glucagon (Glucagon Inj) 1 mg UNSCH PRN OTHER HYPOGLYCEMIA-SEE COMMENTS; Start 10/25/17 at 17:45 Insulin Aspart (NovoLOG SUPPLEMENTAL SCALE) 1 ACHS SLIDING SCALE SQ ; Start at 21:00 Clonidine (Catapres) 0.1 mg Q4H PRN PO SBP>160, DBP>90; Start 10/25/17 at 17: 45 Pharmacy Profile Note 0 ml @ 0 mls/hr UNSCH OTHER ; Start 10/25/17 at 17:45 Vancomycin HCl 1000 mg/Sodium Chloride 250 ml @ 250 mls/hr ONCE ONCE IV Last administered on 10/25/17 21:54; Start 10/25/17 at 20:00; Stop 10/25/17 at 20 :59; Status DC Diphenhydramine HCl (Benadryl Inj) 25 mg Q6H PRN IV PUSH ALLERGIC REACTION; Start 10/25/17 at 17:45 Diphenhydramine HCl (Benadryl) 50 mg Q12H PO Last administered on 10/30/17 04 :05; Start 10/26/17 at 06:00 Sodium Chloride 1,000 ml @ 100 mls/hr Q10H IV Last administered on 10/30/17 05:30; Start 10/25/17 at 20:00 Sodium Chloride (NS Flush) 2 ml UNSCH PRN IV FLUSH FLUSH AFTER USING IV ACCESS Last administered on 10/26/17 17:20; Start 10/25/17 at 17:45 Sodium Chloride (NS Flush) 2 ml BID IV FLUSH Last administered on 10/30/17 20 :00; Start 10/25/17 at 21:00 Acetaminophen (Tylenol) 650 mg Q4H PRN PO TEMP > 100.4; Start 10/25/17 at 17: 45 Ondansetron HCl (Zofran Inj) 4 mg Q6H PRN IVP NAUSEA OR VOMITING Last administered on 10/29/17 10:08; Start 10/25/17 at 17:45; Stop 10/29/17 at 15 :52; Status DC Prochlorperazine (Compazine Supp) 25 mg Q12H PRN RECTAL NAUSEA OR VOMITING; Start 10/25/17 at 17:45 Zolpidem Tartrate (Ambien) 5 mg HS PRN PO INSOMNIA Last administered on 23:00; Start 10/25/17 at 17:45 Heparin Sodium (Porcine) (Heparin Inj) 5,000 units Q12H SQ ; Start 10/25/17 at 17:45; Stop 10/25/17 at 17:50; Status DC Acetaminophen (Tylenol) 650 mg Q6H PRN PO PAIN SCALE 1 TO 2; Start 10/25/17 at 17:45 Oxycodone HCl (Roxicodone) 10 mg Q4H PRN PO PAIN SCALE 6 TO 10 Last administered on 10/31/17 09:23; Start 10/25/17 at 17:45 Morphine Sulfate (Morphine Inj) 2 mg Q3H PRN IV PUSH Pain 3-5; if unable to take PO Last administered on 10/26/17 00:54; Start 10/25/17 at 17:45; Stop 10/28/17 at 09:46; Status DC Morphine Sulfate (Morphine Inj) 4 mg Q3H PRN IV PUSH Pain 6-10;if unable to take PO Last administered on 10/28/17 03:16; Start 10/25/17 at 17:45; Stop 10/28/17 at 09:46; Status DC Oxycodone HCl (Roxicodone) 5 mg Q4H PRN PO PAIN SCALE 3 TO 5; Start 10/25/17 at 17:45 Naloxone HCl (Narcan Inj) 0.4 mg UNSCH PRN IV PUSH SEE LABEL COMMENTS; Start 10/25/17 at 17:45 Senna/Docusate Sodium (Mariam-Colace) 1 tab BID PO Last administered on 09:11; Start 10/25/17 at 21:00 Magnesium Hydroxide (Milk Of Magnesia Liq) 30 ml Q12H PRN PO Mild constipation ; Start 10/25/17 at 17:45 Sennosides (Senokot) 17.2 mg Q12H PRN PO Moderate constipation; Start at 17:45 Bisacodyl (Dulcolax Supp) 10 mg DAILY PRN RECTAL SEVERE CONSITIPATION; Start 10/25/17 at 17:45 Lactulose (Lactulose Liq) 30 ml DAILY PRN PO SEVERE CONSITIPATION; Start 10/25 at 17:45 Piperacillin Sod/ Tazobactam Sod 100 ml @ 200 mls/hr Q6H IV Last administered on 10/29/17 11:49; Start 10/26/17 at 00:00; Stop 10/29/17 at 12:37; Status DC Heparin Sodium (Porcine) (Heparin Inj) 5,000 units Q8H SQ Last administered on 10/28/17 21:33; Start 10/25/17 at 22:00; Stop 10/28/17 at 23:59; Status DC Amlodipine Besylate (Norvasc) 2.5 mg DAILY PO Last administered on 10/27/17 08:49; Start 10/26/17 at 09:00; Stop 10/27/17 at 13:07; Status DC Atorvastatin Calcium (Lipitor) 10 mg DAILY PO Last administered on 10/31/17 09:11; Start 10/26/17 at 09:00 Carvedilol (Coreg) 25 mg Q12HR PO Last administered on 10/31/17 09:10; Start 10/25/17 at 21:00 Folic Acid (Folate) 1 mg DAILY PO Last administered on 10/31/17 09:11; Start 10/26/17 at 09:00 Furosemide (Lasix) 40 mg BID PO Last administered on 10/31/17 09:10; Start 10/25/17 at 21:00 Insulin Detemir (Levemir Inj) 28 units BID SQ Last administered on 10/28/17 08:10; Start 10/25/17 at 21:00 Lisinopril (Prinivil) 40 mg DAILY PO Last administered on 10/31/17 09:11; Start 10/26/17 at 09:00 Pantoprazole Sodium (Protonix) 40 mg DAILY PO Last administered on 10/31/17 09:11; Start 10/26/17 at 09:00 Potassium Chloride (KCl) 10 meq BID PO Last administered on 10/31/17 09:10; Start 10/25/17 at 21:00 Nicotine (Habitrol 7 Mg Patch.24 Hr) 1 patch DAILY T-DERMAL Last administered on 10/31/17 09:11; Start 10/25/17 at 09:00 Miscellaneous Information 1 DAILY T-DERMAL Last administered on 10/31/17 09: 00; Start 10/26/17 at 09:00 Miscellaneous (Pill Splitter) 1 ea UNSCH PRN OTHER SEE LABEL COMMENTS; Start 10/25/17 at 19:00 Diphenhydramine HCl (Benadryl) 50 mg ONCE ONCE PO Last administered on 21:54; Start 10/25/17 at 20:00; Stop 10/25/17 at 20:01; Status DC Influenza Virus Vaccine (Flu (Quadrivalent) Vaccine Inj) 0.5 ml ONCE ONCE IM ; Start 10/26/17 at 10:00; Stop 10/26/17 at 10:01; Status DC Pneumococcal Polyvalent Vaccine (Pneumovax-23 Inj) 25 mcg ONCE ONCE IM ; Start 10/26/17 at 10:00; Stop 10/26/17 at 10:01; Status DC Vancomycin HCl 1250 mg/Sodium Chloride 262.5 ml @ 250 mls/hr Q12H IV Last administered on 10/29/17 18:47; Start 10/26/17 at 06:00; Stop 10/29/17 at 20 :42; Status DC Miscellaneous Information SPECIFIC LAB TO BE [place]... ONCE ONCE .XX ; Start at 05:45; Stop 10/27/17 at 05:46; Status DC Lactated Ringer's 1,000 ml @ 30 mls/hr Q24H PRN IV SEE LABEL COMMENTS; Start 10/26/17 at 01:45; Stop 10/27/17 at 20:05; Status DC Miscellaneous Information SPECIFIC LAB TO BE [place]... ONCE ONCE .XX ; Start at 17:45; Stop 10/27/17 at 17:46; Status Cancel Amlodipine Besylate (Norvasc) 5 mg DAILY PO Last administered on 10/31/17 09: 10; Start 10/28/17 at 09:00 Miscellaneous Information SPECIFIC LAB TO BE [place]... ONCE ONCE .XX Last administered on 10/28/17 05:45; Start 10/28/17 at 05:45; Stop 10/28/17 at 05 :46; Status DC Etomidate (Amidate Inj) 20 mg STK-MED ONCE .ROUTE ; Start 10/27/17 at 17:09; Stop 10/27/17 at 17:10; Status DC Vancomycin HCl (Vancomycin Inj) 1,000 mg STK-MED ONCE .ROUTE Last administered on 10/27/17 18:18; Start 10/27/17 at 17:11; Stop 10/27/17 at 17:12; Status DC Bupivacaine HCl (Marcaine Pf 0.5% Inj) 30 ml STK-MED ONCE .ROUTE Last administered on 10/27/17 17:36; Start 10/27/17 at 17:11; Stop 10/27/17 at 17 :12; Status DC Lidocaine HCl (Xylocaine 1% Inj (50 ml)) 50 ml STK-MED ONCE .ROUTE Last administered on 10/27/17 17:36; Start 10/27/17 at 17:11; Stop 10/27/17 at 17 :12; Status DC Miscellaneous Information (Post-op Orders (for Pharmacy)) STAT ONCE XX ; Start 10/27/17 at 18:45; Stop 10/27/17 at 18:46; Status DC Miscellaneous Information ALL NURSING DEPARTME... UNSCH PRN .XX SEE LABEL COMMENTS; Start 10/27/17 at 19:00; Stop 10/28/17 at 18:59; Status DC Miscellaneous Information ALL NURSING DEPARTME... UNSCH PRN .XX SEE LABEL COMMENTS; Start 10/27/17 at 20:15; Stop 10/28/17 at 20:14; Status DC Morphine Sulfate (Morphine Inj) 2 mg Q3H PRN IV PUSH Pain 3-5; if unable to take PO; Start 10/28/17 at 10:00 Morphine Sulfate (Morphine Inj) 4 mg Q3H PRN IV PUSH Pain 6-10;if unable to take PO; Start 10/28/17 at 10:00 Miscellaneous Information SPECIFIC LAB TO BE [place]... ONCE ONCE .XX Last administered on 10/29/17 17:45; Start 10/29/17 at 17:45; Stop 10/29/17 at 17 :46; Status DC Rivaroxaban (Xarelto) 20 mg DAILY PO Last administered on 10/30/17 08:19; Start 10/29/17 at 09:00 Sodium Chloride (NS Flush) See Protocol DAILY IV FLUSH ; Start 10/30/17 at 09: 00 Sodium Chloride (NS Flush) See Protocol UNSCH PRN IV FLUSH SEE PROTOCOL TABLE; Start 10/29/17 at 15:30 Heparin Sodium (Porcine) (Heparin Central Flush) See Protocol DAILY IV FLUSH ; Start 10/30/17 at 09:00 Heparin Sodium (Porcine) (Heparin Central Flush) See Protocol UNSCH PRN IV FLUSH SEE PROTOCOL TABLE; Start 10/29/17 at 15:30 Sodium Chloride (NS Flush) UNSCH PRN IV FLUSH SEE PROTOCOL TABLE; Start 10/29 at 15:30 Ondansetron HCl (Zofran Inj) 8 mg Q4H PRN IVP NAUSEA OR VOMITING Last administered on 10/30/17 12:05; Start 10/29/17 at 16:00 Metoclopramide HCl (Reglan Inj) 10 mg Q8H PRN IV PUSH NAUSEA/VOMITING; Start 10/29/17 at 16:00 Docusate Sodium (Colace) 100 mg TID PO Last administered on 10/31/17 09:10; Start 10/29/17 at 18:00 Magnesium Hydroxide (Milk Of Magnesia Liq) 30 ml ONCE ONCE PO Last administered on 10/29/17 17:10; Start 10/29/17 at 16:30; Stop 10/29/17 at 16 :57; Status DC Polyethylene Glycol (Miralax) 17 gm DAILY PO Last administered on 10/31/17 09 :10; Start 10/29/17 at 16:30 Vancomycin HCl 1000 mg/Sodium Chloride 250 ml @ 250 mls/hr Q12H IV Last administered on 10/30/17 20:05; Start 10/30/17 at 06:00 Miscellaneous Information SPECIFIC LAB TO BE [place]... ONCE ONCE .XX ; Start at 05:45; Stop 10/31/17 at 05:46; Status DC Alteplase, Recombinant (Cathflo Activase Inj) 2 mg Q2H PRN INTRACATH CLOTTED LINE Last administered on 10/30/17 15:30; Start 10/30/17 at 14:30 Miscellaneous Information SPECIFIC LAB TO BE DRAWN:VANCOMYCIN TROUGH DATE TO... ONCE ONCE .XX ; Start 11/01/17 at 05:45; Stop 11/01/17 at 05:46 Line: PICC Side: Right A/P Problem List: (1) DM (diabetes mellitus), type 2, uncontrolled w/neurologic complication ICD Code: E11.41 - DM (diabetes mellitus), type 2, uncontrolled w/neurologic complication Status: Acute (2) Non compliance with medical treatment ICD Code: Z91.19 - Non compliance with medical treatment Status: Acute (3) Chronic foot ulcer ICD Code: L97.509 - Chronic foot ulcer Status: Acute (4) Personal history of tobacco use, presenting hazards to health ICD Code: Z87.891 - Personal history of tobacco use, presenting hazards to health Status: Acute (5) Right foot ulcer ICD Code: L97.519 - Right foot ulcer Status: Acute (6) Osteomyelitis ICD Code: M86.9 - Osteomyelitis, unspecified Status: Acute (7) Diabetic foot infection ICD Code: E11.69 - Diabetic foot infection; L08.9 - Local infection of the skin and subcutaneous tissue, unspecified Status: Acute (8) DVT (deep venous thrombosis) ICD Code: I82.409 - Acute embolism and thrombosis of unspecified deep veins of unspecified lower extremity Status: Acute (9) Pulmonary emboli ICD Code: I26.99 - Other pulmonary embolism without acute cor pulmonale Status: Chronic Assessment and Plan 1. Right Diabetic Foot ulcer/Osteomyelitis, MRI right foot reviewed and shows normal signal and abnormal enhancement involving the second toe suspicious for osteomyelitis, degenerative changes involving the first distal phalanx with some questionable increased signal in the first proximal phalanx. on antibiotics Zosyn and Vancomycin Seen by Podiatry specialist, Right foot second digit amputation with possible second metatarsal head resection and right hallux excision of ulcer with excision of head of proximal phalanx of hallux. as per ID specialist to continue Vancomycin and Zosyn and following culture when Podiatry perform the Surgery. --Status post procedure with podiatry on October 27 2. Chronic Systolic Heart Failure EF 30%, non decompensated, Echo 10/20/16 with EF 30%. Patient is supposed to be wearing a LifeVest, Patient scheduled to have AICD placed previously but surgery held due to infection continue Home Medicines Lisinopril 40 mg daily, Lasix 40 mg daily, Coreg 25 mg BID, Norvasc 2.5 mg daily, KlorCon 10 meq BID, Aspirin on hold for Surgery. increased Amlodipine to 5 mg daily and will try to remove IV fluids after surgery to decrease blood pressure. 3. DM II continue sliding scale, hemoglobin A1C 9.5 4. History of Recurrent DVT , on hold Xarelto 20 mg daily for Surgery. 5. Hyperlipidemia resume Home Lipitor 6. GERD on PPIs Malignant medical noncompliance MEDS FOR NAUSEA MEDS FOR CONSTIPATION DVT prophylaxis - XARELTO 20MG PO DAILY NEEDS TO HAVE PICC REPLACED STILL DISCHARGED Discharge Planning ONCE SET UP FOR ANTIBIOTICS AND HAS A FUNCTIONAL PICC LINE Problem Qualifiers (1) Osteomyelitis: Qualified Codes: M86.171 - Other acute osteomyelitis, right ankle and foot Sharad Tapia DO Oct 31, 2017 12:23
[2017-10-31] MEDS: VANCOMYCIN 1,000 MG/NS 250 ML IV SCH ×2 (13:53)
[2017-10-31 14:48] VITALS: PULSE 66
[2017-11-01] MEDS ORDERED: PHARMACY ORDERED LAB ONE (05:45)
== END 2017-10-31 15:08 | disposition home health service (06) | DRG 617 ==
LOC: NEPD 11:35 → NEDA 16:31 → N07B 17:13
PROVIDERS: ADMIT Hospitalist; ATTEND Hospitalist
PROC: 0QTQ0ZZ Resection of Right Toe Phalanx, Open Approach (ICD-10-PCS; 2017-10-27)
PROC: 0Y6R0Z0 Detachment at Right 2nd Toe, Complete, Open Approach (ICD-10-PCS; principal; 2017-10-27 17:16)
DX: E11.69 Type 2 diabetes mellitus with other specified complication (principal); M86.171 Other acute osteomyelitis, right ankle and foot; E11.49 Type 2 diabetes mellitus with other diabetic neurological complication; I11.0 Hypertensive heart disease with heart failure; I50.22 Chronic systolic (congestive) heart failure; K59.00 Constipation, unspecified; L97.519 Non-pressure chronic ulcer of other part of right foot with unspecified severity; E11.621 Type 2 diabetes mellitus with foot ulcer; B95.62 Methicillin resistant Staphylococcus aureus infection as the cause of diseases classified elsewhere; M20.41 Other hammer toe(s) (acquired), right foot; E78.5 Hyperlipidemia, unspecified; I25.10 Atherosclerotic heart disease of native coronary artery without angina pectoris; K21.9 Gastro-esophageal reflux disease without esophagitis; E11.65 Type 2 diabetes mellitus with hyperglycemia; M20.5X1 Other deformities of toe(s) (acquired), right foot; F41.9 Anxiety disorder, unspecified; F32.9 Major depressive disorder, single episode, unspecified; F17.210 Nicotine dependence, cigarettes, uncomplicated; Z88.1 Allergy status to other antibiotic agents; Z86.718 Personal history of other venous thrombosis and embolism; Z79.01 Long term (current) use of anticoagulants; Z79.4 Long term (current) use of insulin; Z86.14 Personal history of Methicillin resistant Staphylococcus aureus infection; Z91.19 Patient's noncompliance with other medical treatment and regimen
CPT/HCPCS: 36569; 71010; 73630; 73720; 76937; 80053; 80202; 81001; 82565; 82948; 83036; 83735; 84100; 84439; 84443; 85025; 85610; 85652; 85730; 86140; 86403; 87015; 87040; 87070; 87102; 87116; 87186; 87205; 87206; 88305; 88307; 88311; 93922; 96374; A9579; J1200; J1644; J2250; J2270; J2370; J2405; J2543; J2997; J3010; J3370; J7030; J7050; L3260; Q0163

== ENCOUNTER 2017-11-02 10:34 | Emergency (ER) | payer OTHER ==
[~2017-11-02] VITALS: Ht 172.7 cm; Wt 71.0 kg
[~2017-11-02 10:34] MED LIST changes: -CLIN300C5 PO; +DIPH50CA PO; +DOCU1CAP39 PO; +FOLI1TAB6 PO; -FOLI800T PO; +NICO1DIS8 T-DERMAL; +OXYC-392 PO; +POLY17S PO; +SENN187 PO
[2017-11-02 10:36] VITALS: BP 135/74; PULSE 85; RESP 16; TEMP 99.1; O2SAT 96
--- NOTE | 2017-11-02 11:25 | PD ---
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 Patient is at home and getting home vancomyciln. He reports the home health nurse came yesterday and could not flush his PICC line. She told him to come to the hospital. She gave him his vancomycin bag and asked that we would administer it today. She'll check on him tonight is unclear successfully able to clear his PICC line. The patient has no other complaints at this time. PFSH Past Medical History Hx Anticoagulant Therapy: Yes Asthma: No Blood Disorders: No Anxiety: No Depression: No Heart Rhythm Problems: Yes Cancer: No Cardiovascular Problems: Yes High Cholesterol: Yes Chest Pain: Yes Congestive Heart Failure: Yes COPD: No Coronary Artery Disease: Yes Diabetes: Yes Patient Takes Glucophage: No Diminished Hearing: No Deep Vein Thrombosis: Yes Endocrine: Yes Gastrointestinal Disorders: Yes GERD: Yes Genitourinary: No Hypertension: Yes Immune Disorder: No Implanted Vascular Access Dvce: Yes Musculoskeletal: No Neurologic: No Psychiatric: Yes (BIPOLAR ) Reproductive: No Respiratory: Yes (CHF) Immunizations Current: Yes Sleep Apnea: No Thyroid Disease: No Ulcer: No Tetanus Vaccination: < 5 Years Past Surgical History Body Medical Devices: PLATE IN LEFT ARM WITH SCREWS Thoracic Surgery: Yes (SPINAL SURGERY) Other Surgery: Yes (partial amputation to the left foot, mid metatarsals. Right fourth toe amp) Social History Alcohol Use: Yes (OCCASIONALLY) Tobacco Use: Yes (4 cigarettes daily) Substance Use: Yes ([facility] ) Allergies-Medications (Allergen,Severity, Reaction): Coded Allergies: acetaminophen (Verified Allergy, Mild, Hives, 11/02/17) amoxicillin (Verified Allergy, Mild, Hives, 11/02/17) oxycodone (Verified Allergy, Mild, Hives, 11/02/17) *MDRO Multi-Drug Resistant Organism (Verified Adverse Reaction, Unknown, 11/02/17) MRSA (foot wound) - 09/2015 & 09/26/16 Reported Meds & Prescriptions Reported Meds & Active Scripts Active Folic Acid 1 Mg Tablet 1 Mg PO DAILY Senna-Lax (Sennosides) 8.6 Mg Tab 17.2 Mg PO Q12H PRN Polyethylene Glycol 3350 Powder (Polyethylene Glycol) 17 Gram Pow 17 Gm PO DAILY Dok (Docusate Sodium) 100 Mg Cap 100 Mg PO TID Oxycodone (Oxycodone HCl) 5 Mg Tab 10 Mg PO Q4H PRN Norvasc (Amlodipine Besylate) 5 Mg Tab 5 Mg PO DAILY Eq Nicotine Step 3 (Nicotine) 7 Mg/24 Hour Dis 1 Patch T-DERMAL DAILY Diphenhydramine HCl 50 Mg Cap 50 Mg PO Q12H TAKE PRIOR TO VANCOMYCIN Aspirin 81 Mg Chew 81 Mg CHEW DAILY Lantus Inj (Insulin Glargine) 1,000 Unit/10 Ml Vial 28 Units SQ BID Klor-Con 10 (Potassium Chloride) 10 Meq Tab 10 Meq PO BID Lasix (Furosemide) 40 Mg Tab 40 Mg PO BID Pantoprazole (Pantoprazole Sodium) 40 Mg Tab 40 Mg PO DAILY Xarelto (Rivaroxaban) 20 Mg Tab 20 Mg PO DAILY@1600 Lisinopril 20 Mg Tab 40 Mg PO DAILY Coreg (Carvedilol) 12.5 Mg Tab 25 Mg PO Q12HR Lipitor (Atorvastatin Calcium) 10 Mg Tab 10 Mg PO DAILY Review of Systems Except as stated in HPI: all other systems reviewed are Neg General / Constitutional: No: Fever, Chills HENT: No: Headaches, Neck Pain Cardiovascular: No: Chest Pain or Discomfort, Palpitations Respiratory: No: Cough Gastrointestinal: No: Nausea, Vomiting Musculoskeletal: Positive: Pain (right foot from the osteomyelitis) Skin: Positive Lesions (right foot secondary to osteomyelitis, not new) Physical Exam Narrative GENERAL: Well-nourished, well-developed patient, in no acute rest her distress. SKIN: Focused skin assessment warm/dry. HEAD: Normocephalic/atraumatic. EYES: No scleral icterus. No injection or drainage. NECK: Supple, trachea midline. No JVD or lymphadenopathy. CARDIOVASCULAR: Regular rate and rhythm without murmurs, gallops, or rubs. RESPIRATORY: Breath sounds equal bilaterally. No accessory muscle use. GASTROINTESTINAL: Abdomen soft, non-tender, nondistended. MUSCULOSKELETAL: PICC line in the right upper extremity. There is no evidence of redness or swelling around the PICC line. NEUROLOGICAL: Awake and alert. Cranial nerves II through XII intact. Motor grossly within normal limits. Five out of 5 muscle strength in all muscle groups. Normal speech. Data Data Last Documented VS Vital Signs Date Time Temp Pulse Resp B/P (MAP) Pulse Ox O2 Delivery O2 Flow Rate FiO2 11/02/17 10:36 99.1 85 16 135/74 (94) 96 MDM Medical Decision Making Medical Screen Exam Complete: Yes Emergency Medical Condition: Yes Differential Diagnosis PICC line obstruction versus malfunction versus positional. Narrative Course 52-year-old male presents today with complaints of PICC line not working. Patient is receiving home antibiotics. Yesterday, the home health nurse was unable to access his PICC line because it wouldn't flow. We were able to flush the PICC line. It appeared to be initially positional. The patient has been given his vancomycin that was sent in by the home health nurse. He'll be discharged. He is instructed to return of he develops any further malfunctions. Diagnosis Primary Impression: PICC line malfunction with resolution. Additional Impressions: steal myelitis of the right foot DM (diabetes mellitus) Additional Instructions: Return if PICC line is not working. Follow up with physicians as previously scheduled. Disposition: DISCHARGE HOME Condition: Stable Gregory Braun MD Nov 02, 2017 11:25
== END 2017-11-02 13:49 | disposition home or self-care (01) ==
LOC: NEPE 10:34
DX: T82.898A Other specified complication of vascular prosthetic devices, implants and grafts, initial encounter (principal); M86.8X7 Other osteomyelitis, ankle and foot; E11.9 Type 2 diabetes mellitus without complications; I11.0 Hypertensive heart disease with heart failure; I50.9 Heart failure, unspecified; E78.00 Pure hypercholesterolemia, unspecified; I25.10 Atherosclerotic heart disease of native coronary artery without angina pectoris; K21.9 Gastro-esophageal reflux disease without esophagitis; Z86.718 Personal history of other venous thrombosis and embolism
CPT/HCPCS: 99281

== ENCOUNTER 2017-11-10 13:12 | Inpatient (IN) | payer OTHER ==
[~2017-11-10] VITALS: Ht 172.7 cm; Wt 76.0 kg
[2017-11-10 13:16] VITALS: BP 159/104; PULSE 90; RESP 18; TEMP 97.8; O2SAT 100
--- NOTE | 2017-11-10 13:32 | PD ---
HPI Chief Complaint: Edema Time Seen by Provider: 13:25 Travel History International Travel<30 days: No Contact w/Intl Traveler<30days: No Traveled to known affect area: No History of Present Illness HPI 52-year-old male came to the emergency room with history of generalized anasarca for past 1-2 days. Patient has history of a recent diabetic toe amputation that was done about 2 weeks ago. Patient was discharged home on IV vancomycin via PICC line. Patient says that he was called 2 days ago to stop the vancomycin. He has been flushing the PICC line but then started noticing that he was swelling up all over the body. He says that his scrotum looks very swollen. He has been very nauseous on his way to the emergency room and vomited twice. He has been getting night sweats. Vital signs were stable. Patient is a diabetic and his blood sugar at the bedside was 212. PFSH Past Medical History Narrative Medical List of his past medical, surgical, social and family history is reviewed from the nursing note. Hx Anticoagulant Therapy: Yes Asthma: No Blood Disorders: No Anxiety: No Depression: No Heart Rhythm Problems: Yes Cancer: No Cardiovascular Problems: Yes High Cholesterol: Yes Chest Pain: Yes Congestive Heart Failure: Yes COPD: No Coronary Artery Disease: Yes Diabetes: Yes Diminished Hearing: No Deep Vein Thrombosis: Yes Endocrine: Yes Gastrointestinal Disorders: Yes GERD: Yes Genitourinary: No Hypertension: Yes Immune Disorder: No Implanted Vascular Access Dvce: Yes Musculoskeletal: No Neurologic: No Psychiatric: Yes (BIPOLAR ) Reproductive: No Respiratory: Yes (CHF) Immunizations Current: Yes Sleep Apnea: No Thyroid Disease: No Ulcer: No Past Surgical History Body Medical Devices: PLATE IN LEFT ARM WITH SCREWS Thoracic Surgery: Yes (SPINAL SURGERY) Other Surgery: Yes (partial amputation to the left foot, mid metatarsals. Right fourth toe amp) Social History Alcohol Use: Yes (OCCASIONALLY) Tobacco Use: Yes (4 cigarettes daily) Substance Use: Yes ([facility] ) Allergies-Medications (Allergen,Severity, Reaction): Coded Allergies: acetaminophen (Verified Allergy, Mild, Hives, 11/10/17) amoxicillin (Verified Allergy, Mild, Hives, 11/10/17) oxycodone (Verified Allergy, Mild, Hives, 11/10/17) Comments List of his allergies reviewed from the nursing note. Reported Meds & Prescriptions Reported Meds & Active Scripts Active Folic Acid 1 Mg Tablet 1 Mg PO DAILY Oxycodone (Oxycodone HCl) 5 Mg Tab 10 Mg PO Q4H PRN Norvasc (Amlodipine Besylate) 5 Mg Tab 5 Mg PO DAILY Aspirin 81 Mg Chew 81 Mg CHEW DAILY Lantus Inj (Insulin Glargine) 1,000 Unit/10 Ml Vial 28 Units SQ BID Klor-Con 10 (Potassium Chloride) 10 Meq Tab 10 Meq PO BID Pantoprazole (Pantoprazole Sodium) 40 Mg Tab 40 Mg PO DAILY Coreg (Carvedilol) 12.5 Mg Tab 25 Mg PO Q12HR Lipitor (Atorvastatin Calcium) 10 Mg Tab 10 Mg PO DAILY Narrative Medication List of his home medications reviewed from the nursing note. Review of Systems Except as stated in HPI: all other systems reviewed are Neg Musculoskeletal: Positive: Edema Physical Exam Narrative GENERAL: Awake, alert, anxious, moderate distress SKIN: Focused skin assessment warm/dry. Pale HEAD: Atraumatic. Normocephalic. EYES: Pupils equal and round. No scleral icterus. No injection or drainage. ENT: No nasal bleeding or discharge. Mucous membranes pink and moist. NECK: Trachea midline. No JVD. CARDIOVASCULAR: Regular rate and rhythm. No murmur appreciated. RESPIRATORY: No accessory muscle use. Clear to auscultation. Breath sounds equal bilaterally. GASTROINTESTINAL: Abdomen soft, non-tender, nondistended. Hepatic and splenic margins not palpable. MUSCULOSKELETAL: No obvious deformities. No clubbing. No cyanosis. 1+ edema. : Scrotal edema NEUROLOGICAL: Awake and alert. No obvious cranial nerve deficits. Motor grossly within normal limits. Normal speech. PSYCHIATRIC: Appropriate mood and affect; insight and judgment normal. Data Data Last Documented VS Orders Orders Sepsis Workup Initiated (11/10/17 ) Complete Blood Count With Diff (11/10/17 13:32) Comprehensive Metabolic Panel (11/10/17 13:32) Lactic Acid Sepsis Protocol (11/10/17 13:32) Urinalysis - C+S If Indicated (11/10/17 13:32) Blood Culture (11/10/17 13:32) Chest, Single Ap (11/10/17 13:32) Blood Glucose (11/10/17 13:32) Ecg Monitoring (11/10/17 13:32) Iv Access Insert/Monitor (11/10/17 13:32) Oximetry (11/10/17 13:32) Oxygen Administration (11/10/17 13:32) Westergren Sedimentation Rate (11/10/17 13:32) C-Reactive Protein (Crp) (11/10/17 13:32) Morphine Inj (Morphine Inj) (11/10/17 13:45) Mri Foot W/O Contrast (11/10/17 ) Ondansetron Inj (Zofran Inj) (11/10/17 14:00) Urine Culture (11/10/17 15:00) Admit To Inpatient (11/10/17 ) Vital Signs (Adult) Q4H (11/10/17 16:15) Activity Oob With Assistance (11/10/17 16:15) Worm Picker / Telemetry .CONTINUOUS (11/10/17 16:15) Intake + Output RUIZ.QSHIFT (11/10/17 16:15) Diet Heart Healthy (11/10/17 Dinner) Diet Renal (11/10/17 Dinner) Sodium Chloride 0.9% Flush (Ns Flush) (11/10/17 16:15) Sodium Chloride 0.9% Flush (Ns Flush) (11/10/17 21:00) Basic Metabolic Panel (Bmp) (11/11/17 06:00) Complete Blood Count With Diff (11/11/17 06:00) Case Management Consult (11/10/17 16:15) Heparin Inj (Heparin Inj) (11/10/17 17:00) Naloxone Inj (Narcan Inj) (11/10/17 16:15) Inpatient Certification (11/10/17 ) Furosemide Inj (Lasix Inj) (11/10/17 16:30) Us Kidney/Renal/Bladder (11/10/17 16:18) Admit Order (Ed Use Only) (11/10/17 16:18) Random Vancomycin (11/10/17 16:18) Labs Laboratory Tests Test 11/10/17 13:45 11/10/17 15:00 White Blood Count 10.3 TH/MM3 Red Blood Count 3.99 MIL/MM3 Hemoglobin 10.5 GM/DL Hematocrit 32.6 % Mean Corpuscular Volume 81.6 FL Mean Corpuscular Hemoglobin 26.4 PG Mean Corpuscular Hemoglobin Concent 32.3 % Red Cell Distribution Width 16.4 % Platelet Count 307 TH/MM3 Mean Platelet Volume 8.8 FL Neutrophils (%) (Auto) 78.0 % Lymphocytes (%) (Auto) 11.8 % Monocytes (%) (Auto) 6.7 % Eosinophils (%) (Auto) 2.6 % Basophils (%) (Auto) 0.9 % Neutrophils # (Auto) 8.1 TH/MM3 Lymphocytes # (Auto) 1.2 TH/MM3 Monocytes # (Auto) 0.7 TH/MM3 Eosinophils # (Auto) 0.3 TH/MM3 Basophils # (Auto) 0.1 TH/MM3 CBC Comment DIFF FINAL Differential Comment Erythrocyte Sedimentation Rate 41 mm/hr Blood Urea Nitrogen 50 MG/DL Creatinine 4.81 MG/DL Random Glucose 201 MG/DL Total Protein 7.3 GM/DL Albumin 2.5 GM/DL Calcium Level 8.1 MG/DL Alkaline Phosphatase 130 U/L Aspartate Amino Transf (AST/SGOT) 20 U/L Alanine Aminotransferase (ALT/SGPT) 19 U/L Total Bilirubin 0.8 MG/DL Sodium Level 132 MEQ/L Potassium Level 3.3 MEQ/L Chloride Level 99 MEQ/L Carbon Dioxide Level 23.1 MEQ/L Anion Gap 10 MEQ/L Estimat Glomerular Filtration Rate 13 ML/MIN Lactic Acid Level 1.2 mmol/L C-Reactive Protein 4.20 MG/DL Random Vancomycin Level 33.8 COMMENT Urine Color LIGHT-YELLOW Urine Turbidity CLEAR Urine pH 5.5 Urine Specific [place] 1.006 Urine Protein TRACE mg/dL Urine Glucose (UA) NEG mg/dL Urine Ketones NEG mg/dL Urine Occult Blood TRACE Urine Nitrite NEG Urine Bilirubin NEG Urine Urobilinogen LESS THAN 2.0 MG/DL Urine Leukocyte Esterase MOD Urine RBC 3 /hpf Urine WBC 15 /hpf Urine Bacteria OCC /hpf Microscopic Urinalysis Comment CATH-CULTURE IND MDM Medical Decision Making Medical Screen Exam Complete: Yes Emergency Medical Condition: Yes Medical Record Reviewed: Yes Differential Diagnosis Renal failure, osteomyelitis, anemia Narrative Course 4:25 PM blood test results of back and patient is in acute renal failure. This is most probably from vancomycin toxicity. I discussed the case with Dr. Cooper who wants the patient to get 40 mg of IV Lasix, renal ultrasound and vancomycin level. All this has been ordered. Patient has been admitted to the hospitalist. I put a page out for the infectious disease specialist but have not heard back yet. Procedures EKG Prior to Arrival: No Physician Communication Physician Communication Dr. Cooper Diagnosis Primary Impression: Acute renal failure Qualified Codes: N17.9 - Acute kidney failure, unspecified Additional Impressions: Diabetic foot infection Fluid retention possible vancomycin toxicity-induced nephropathy Admitting Information Admitting Physician Requests: Admit Scripts Furosemide (Furosemide) 20 Mg Tab 20 MG PO BID for Fluid, #60 TAB 0 Refills Prov: Jacob Armenta DO 11/15/17 Paramjit Auguste MD Nov 10, 2017 13:32
[2017-11-10] MEDS ORDERED: MORPHINE SULFATE 2 MG/ML INJ IV PUSH ONE (13:45)
[2017-11-10] MEDS ORDERED: ONDANSETRON HCL 4 MG/2 ML VIAL IV PUSH ONE (14:00)
[2017-11-10 14:09] LABS: AUTOMATED NEUTROPHIL # 8.1 TH/MM3 (1.8-7.7); BASOPHIL # 0.1 TH/MM3 (0-0.2); BASOPHIL % 0.9 % (0.0-2.0); EOSINOPHIL # 0.3 TH/MM3 (0-0.4); EOSINOPHIL % 2.6 % (0.0-4.0); HEMATOCRIT 32.6 % (39.0-51.0); HEMOGLOBIN 10.5 GM/DL (13.0-17.0); LYMPH % 11.8 % (9.0-44.0); LYMPHOCYTE # 1.2 TH/MM3 (1.0-4.8); MEAN CELL VOLUME 81.6 FL (80.0-100.0); MEAN CORPUSCULAR HEMOGLOBIN 26.4 PG (27.0-34.0); MEAN CORPUSCULAR HGB CONC 32.3 % (32.0-36.0); MEAN PLATELET VOLUME 8.8 FL (7.0-11.0); MONO % 6.7 % (0.0-8.0); MONOCYTE # 0.7 TH/MM3 (0-0.9); PLATELET COUNT 307 TH/MM3 (150-450); RED BLOOD COUNT 3.99 MIL/MM3 (4.50-5.90); RED CELL DISTRIBUTION WIDTH 16.4 % (11.6-17.2); WHITE BLOOD COUNT 10.3 TH/MM3 (4.0-11.0)
--- NOTE | 2017-11-10 14:18 | RADRPT ---
EXAM DATE/TIME: 11/10/2017 13:53 [facility] COMPARISON: CHEST SINGLE AP, October 30, 2017, 14:34. INDICATIONS : Lower extremity swelling, chest pressure, and shortness of breath. MEDICAL HISTORY : Congestive heart failure. Diabetes mellitus type II. SURGICAL HISTORY : None. ENCOUNTER: Initial ACUITY: 3 days PAIN SCORE: 1/10 LOCATION: Bilateral chest FINDINGS: There is a PICC line in place from the right arm. The tip overlies the SVC. The heart size is upper l imits of normal. There is prominence to the interstitial markings throughout. A focal area of consoli dation is not seen. CONCLUSION: Diffuse prominence of interstitial markings likely related to pulmonary venous hypertension or mild e genaro. Clifford Priest MD on November 10, 2017 at 14:15 Board Certified Radiologist. This report was verified electronically.
[2017-11-10 14:23] LABS: ALBUMIN 2.5 GM/DL (3.4-5.0); AST (GOT) 20 U/L (15-37); BICARBONATE 23.1 MEQ/L (21.0-32.0); BLOOD UREA NITROGEN 50 MG/DL (7-18); CALCIUM 8.1 MG/DL (8.5-10.1); CHLORIDE 99 MEQ/L (98-107); CREATININE 4.81 MG/DL (0.60-1.30); GLOMERULAR FILTRATION RATE 13 ML/MIN (>89); GLUCOSE,RANDOM 201 MG/DL (74-106); SODIUM (NA) 132 MEQ/L (136-145)
[2017-11-10 14:24] LABS: ALT (GPT) 19 U/L (12-78)
[2017-11-10 14:26] LABS: ALKALINE PHOSPHATASE 130 U/L (45-117); TOTAL BILIRUBIN ADULT 0.8 MG/DL (0.2-1.0); TOTAL PROTEIN 7.3 GM/DL (6.4-8.2)
[2017-11-10 15:35] LABS: BACTERIA, URINE OCC /hpf; BILIRUBIN, URINE NEG (NEG); BLOOD, URINE TRACE (NEG); GLUCOSE,URINE NEG (NEG); KETONE, URINE NEG (NEG); NITRITE,URINE NEG (NEG); PH, URINE 5.5 (5.0-8.5); URINE COLOR LIGHT-YELLOW (YELLW/STRAW); URINE LEUKOCYTE ESTERASE MOD (NEG)
--- NOTE | 2017-11-10 15:55 | RADRPT ---
EXAM DATE/TIME: 11/10/2017 15:06 [facility] COMPARISON: FOOT RIGHT COMPLETE ([id number]), October 17, 2017, 20:40. MRI FOOT RIGHT W & W/O CONTRAST, October 112016, 13:30. FOOT RIGHT COMPLETE ([id number]), October 27, 2017, 18:54. INDICATIONS : Osteomyelitis. MEDICAL HISTORY : Diabetes mellitus type 2. Hypertension. SURGICAL HISTORY : Partial bilateral foot/toe amputations ENCOUNTER: Initial ACUITY: 1 day PAIN SCORE: 0/10 LOCATION: Right foot TECHNIQUE: Multiplanar, multisequence MRI examination was performed without contrast. FINDINGS: There is evidence of amputation of the second and third digits at the level of the metatarsophal angeal joints and there are postsurgical changes involving the first proximal phalanx near the interp halangeal joint with osteotomy at this site. Diffuse edema involving the first proximal phalanx with slight edema in the surrounding subcutaneous tissues extending to the second and third digits. The de gree of edema involving the first proximal phalanx has increased since the prior MRI from 10/25/2017 and there is slight partial dislocation of the distal phalanx with respect to the interphalangeal yvette nt. CONCLUSION: Biophysical changes with increased edema involving the first proximal phalanx could be due to postsur gical changes and there is also some degree of partial dislocation of the first interphalangeal joint and osteomyelitis within this digit it is difficult to exclude should be correlated clinically. Bryn Mccall MD on November 10, 2017 at 15:48 Board Certified Radiologist. This report was verified electronically.
[2017-11-10] MEDS ORDERED: NALOXONE HCL 0.4 MG/ML AMP IV PUSH PRN (16:15)
[2017-11-10 16:30] VITALS: BP 141/76; PULSE 77; RESP 16; O2SAT 98
[2017-11-10] MEDS ORDERED: FUROSEMIDE 40 MG/4 ML VIAL IV PUSH ONE (16:30)
--- NOTE | 2017-11-10 16:59 | HHI.HP ---
[facility] Primary [facility]ician No Primary Care Physician Admission Diagnosis acute renal failure, diabetic foot infection Diagnoses: Travel History International Travel<30 Days: No Contact w/Intl Traveler <30 Da: No Traveled to Known Affected Are: No History of Present Illness History from patient, ER physician communication, and review of medical records. Patient was recently discharged from our hospital on October 31, 2017. Medical records from that admission reviewed. Patient stated he was called to stop vanco from hospital staff about 2 days ago after blood test he stopped vancomycin for 2 days then also started have generalized swelling short of breath, though mild able to urinate due to diuretics at home that he takes for chf according to him no fever, but continues to have chills also has not been eating since he left no BM since home no blood from anywhere Denies other symptoms Review of Systems Except as stated in HPI: all other systems reviewed are Neg Past Family Social History Past Medical History HTN DM CHF- EF 30%, was at one point on life vest with EF 16% COPD History of left lower extremity DVT Chronic anticoagulation on Xarelto History of perirectal abscesses GERD Past Surgical History Perirectal abscess excision Coronary angiograms Left foot digits amputation for osteomyelitis Left elbow surgery with pins and rods Neck surgery 3rd and 4th toes amputated on right foot Back surgery for removal spine cyst Pins/rods left arm 1. Second digit amputation at metatarsophalangeal joint. 2. Right hallux interphalangeal joint arthroplasty at proximal phalanx head with excision of ulcer. Allergies: Coded Allergies: acetaminophen (Verified Allergy, Mild, Hives, 11/10/17) amoxicillin (Verified Allergy, Mild, Hives, 11/10/17) oxycodone (Verified Allergy, Mild, Hives, 11/10/17) *MDRO Multi-Drug Resistant Organism (Verified Adverse Reaction, Unknown, 11/10/17) MRSA (foot wound) - 09/2015 & 09/26/16 Family History Has a cousin who is also on LifeVest due to cardiomyopathy. Hypertension in multiple members Social History Used to smoke cigarettes about half a pack a day. He states currently he is only smoking a few cigarettes a day. Used to drink alcohol about 6 beers a day. States now he occasional he drinks one or 2 beers. Denies any drug abuse. Physical Exam Vital Signs Vital Signs Date Time Temp Pulse Resp B/P (MAP) Pulse Ox O2 Delivery O2 Flow Rate FiO2 11/10/17 16:30 77 16 141/76 (97) 98 Room Air 11/10/17 13:16 97.8 90 18 159/104 (122) 100 Physical Exam GENERAL: This is a well-nourished, well-developed patient, in no apparent distress. Generalized anasarca with nephrotic looking face SKIN: No rashes, ecchymoses or lesions. Cool and dry. HEAD: Atraumatic. Normocephalic. No temporal or scalp tenderness. EYES:. No scleral icterus. No injection or drainage. ENT: Nose without bleeding, purulent drainage or septal hematoma. Airway patent. NECK: Trachea midline. No JVD or lymphadenopathy. Supple, nontender, no meningeal signs. CARDIOVASCULAR: Regular rate and rhythm without murmurs, gallops, or rubs. RESPIRATORY: Bilateral basilar crepitations GASTROINTESTINAL: Abdomen soft,. Distended abdomen. No rebound. No suprapubic tenderness. No guarding. MUSCULOSKELETAL: Extremities without clubbing, cyanosis, . Generalized anasarca. Bilateral lower extremity pitting edema 3+ up to knees. Right foot metatarsal amputation with surgical sutures NEUROLOGICAL: Awake and alert. Motor and sensory grossly within normal limits.Normal speech. Laboratory Laboratory Tests Test 11/10/17 13:45 11/10/17 15:00 White Blood Count 10.3 Red Blood Count 3.99 Hemoglobin 10.5 Hematocrit 32.6 Mean Corpuscular Volume 81.6 Mean Corpuscular Hemoglobin 26.4 Mean Corpuscular Hemoglobin Concent 32.3 Red Cell Distribution Width 16.4 Platelet Count 307 Mean Platelet Volume 8.8 Neutrophils (%) (Auto) 78.0 Lymphocytes (%) (Auto) 11.8 Monocytes (%) (Auto) 6.7 Eosinophils (%) (Auto) 2.6 Basophils (%) (Auto) 0.9 Neutrophils # (Auto) 8.1 Lymphocytes # (Auto) 1.2 Monocytes # (Auto) 0.7 Eosinophils # (Auto) 0.3 Basophils # (Auto) 0.1 CBC Comment DIFF FINAL Differential Comment Erythrocyte Sedimentation Rate 41 Blood Urea Nitrogen 50 Creatinine 4.81 Random Glucose 201 Total Protein 7.3 Albumin 2.5 Calcium Level 8.1 Alkaline Phosphatase 130 Aspartate Amino Transf (AST/SGOT) 20 Alanine Aminotransferase (ALT/SGPT) 19 Total Bilirubin 0.8 Sodium Level 132 Potassium Level 3.3 Chloride Level 99 Carbon Dioxide Level 23.1 Anion Gap 10 Estimat Glomerular Filtration Rate 13 Lactic Acid Level 1.2 C-Reactive Protein 4.20 Urine Color LIGHT-YELLOW Urine Turbidity CLEAR Urine pH 5.5 Urine Specific [place] 1.006 Urine Protein TRACE Urine Glucose (UA) NEG Urine Ketones NEG Urine Occult Blood TRACE Urine Nitrite NEG Urine Bilirubin NEG Urine Urobilinogen LESS THAN 2.0 Urine Leukocyte Esterase MOD Urine RBC 3 Urine WBC 15 Urine Bacteria OCC Microscopic Urinalysis Comment CATH-CULTURE IND Date/Time Source Procedure Growth Status 11/10/17 13:45 Blood Peripheral Aerobic Blood Culture Pending Received 11/10/17 13:45 Blood Peripheral Anaerobic Blood Culture Pending Received 11/10/17 15:00 Urine Catheterized Urine Urine Culture Pending Received Result Diagram: 11/10/17 1345 11/10/17 1345 Imaging Last 48 hours Impressions Renal Ultrasound 11/10/17 1618 Signed Impressions: Service Date/Time: Friday, November 10, 2017 16:46 - CONCLUSION: Unremarkable renal ultrasound. Bryn Mccall MD Chest X-Ray 11/10/17 1332 Signed Impressions: Service Date/Time: Friday, November 10, 2017 13:53 - CONCLUSION: Diffuse prominence of interstitial markings likely related to pulmonary venous hypertension or mild edema. Clifford Priest MD Foot MRI 11/10/17 0000 Signed Impressions: Service Date/Time: Friday, November 10, 2017 15:06 - CONCLUSION: Biophysical changes with increased edema involving the first proximal phalanx could be due to postsurgical changes and there is also some degree of partial dislocation of the first interphalangeal joint and osteomyelitis within this digit it is difficult to exclude should be correlated clinically. MD Gato Garzai VTE Risk Assessment Caprini VTE Risk Assessment: Mod/High Risk (score >= 2) Caprini Risk Assessment Model Point Value = 1 Point Value = 2 Point Value = 3 Point Value = 5 Age 41-60 Minor surgery BMI > 25 kg/m2 Swollen legs Varicose veins or History of unexplained or recurrent spontaneous Oral contraceptives or hormone replacement Sepsis (< 1 month) Serious lung disease, including pneumonia (< 1 month) Abnormal pulmonary function Acute myocardial infarction Congestive heart failure (< 1 month) History of inflammatory bowel disease Medical patient at bed rest Age 61-74 Arthroscopic surgery Major open surgery (> 45 min) Laparoscopic surgery (> 45 min) Malignancy Confined to bed (> 72 hours) Immobilizing plaster cast Central venous access Age >= 75 History of VTE Family history of VTE Factor V Leiden Prothrombin [id number] Lupus anticoagulant Anticardiolipin antibodies Elevated serum homocysteine Heparin-induced thrombocytopenia Other congenital or acquired thrombophilia Stroke (< 1 month) Elective arthroplasty Hip, pelvis, or leg fracture Acute spinal cord injury (< 1 month) Prophylaxis Regimen Total Risk Factor Score Risk Level Prophylaxis Regimen 0-1 Low Early ambulation 2 Moderate Order ONE of the following: *Sequential Compression Device (SCD) *Heparin 5000 units SQ BID 3-4 Higher Order ONE of the following medications: *Heparin 5000 units SQ TID *Enoxaparin/Lovenox 40 mg SQ daily (WT < 150 kg, CrCl > 30 mL/min) *Enoxaparin/Lovenox 30 mg SQ daily (WT < 150 kg, CrCl > 10-29 mL/min) *Enoxaparin/Lovenox 30 mg SQ BID (WT < 150 kg, CrCl > 30 mL/min) AND/OR *Sequential Compression Device (SCD) 5 or more Highest Order ONE of the following medications: *Heparin 5000 units SQ TID (Preferred with Epidurals) *Enoxaparin/Lovenox 40 mg SQ daily (WT < 150 kg, CrCl > 30 mL/min) *Enoxaparin/Lovenox 30 mg SQ daily (WT < 150 kg, CrCl > 10-29 mL/min) *Enoxaparin/Lovenox 30 mg SQ BID (WT < 150 kg, CrCl > 30 mL/min) AND *Sequential Compression Device (SCD) Assessment and Plan Assessment and Plan Impression: Acute renal failure Possible finger induced renal failure Generalized anasarca Abnormal UA Recent osteomyelitis of foot with cultures growing MRSA. The patient was on Vanco IV at home per ID. HTN DM CHF- EF 30%, was at one point on life vest with EF 16% COPD History of left lower extremity DVT Chronic anticoagulation on Xarelto History of perirectal abscesses GERD Plan: Stop vancomycin Avoid nephrotoxic meds. Stop Xarelto. Will follow renal function. Patient was given Lasix 40 mg IV in ER per nephrology advise. Patient is also noted to be having bilateral lung crepitations chest x-ray evidence of mild pulmonary edema. For now, we would use Lasix IV as needed with strict nephrology guidance due to his acute renal failure. However bear in mind that this patient may get short of breath and may need intermittent diuresis further. Renal ultrasound personally reviewed. No acute pathology Was switched anticoagulation to heparin drip as patient may undergo dialysis catheter placement if renal function does not improve. As for osteomyelitis, would consult infectious disease for further recommendations. For now no antibiotics We'll continue rest of his home medications. DVT prophylaxis on heparin drip. Discussed Condition With Patient, ER physician, nursing staff Physician Certification 2 Midnight Certification Type: Admission for Inpatient Services Order for Inpatient Services The services are ordered in accordance with Medicare regulations or non- Medicare payer requirements, as applicable. In the case of services not specified as inpatient-only, they are appropriately provided as inpatient services in accordance with the 2-midnight benchmark. Estimated LOS (days): 4 days is the estimated time the patient will need to remain in the hospital, assuming treatment plan goals are met and no additional complications. Post-Hospital Plan: Home Matthew Singh MD Nov 10, 2017 16:59
[2017-11-10] MEDS ORDERED: HEPARIN SODIUM - SQ 10,000 UNITS/ML VIAL SQ SCH (17:00)
--- NOTE | 2017-11-10 17:17 | RADRPT ---
EXAM DATE/TIME: 11/10/2017 16:46 [place] COMPARISON: No previous studies available for comparison. INDICATIONS : Increased BUN/Creatnine. MEDICAL HISTORY : Unable to obtain. SURGICAL HISTORY : Unable to obtain. ENCOUNTER: Initial ACUITY: 1 week PAIN SCORE: 2/10 LOCATION: Bilateral flank MEASUREMENTS: RIGHT KIDNEY: 12.5 x 4.7 x 5.9 cm LEFT KIDNEY: 12.3 x 4.4 x 5.8 cm FINDINGS: There is no hydronephrosis. No definite solid mass is identified. No definite stone is identified f or technique. The bladder is grossly intact for technique and not being completely distended during t he exam. CONCLUSION: Unremarkable renal ultrasound. Bryn Mccall MD on November 10, 2017 at 17:15 Board Certified Radiologist. This report was verified electronically.
--- NOTE | 2017-11-10 17:34 | PD.CONS ---
[facility] Service Nephrology Consult Requested By Reason for Consult Acute kidney injury Primary Care Physician No Primary Care Physician History of Present Illness This patient was admitted between 10/25/17 and 10/30/17 for osteomyelitis of the right foot. He was placed on Vancomycin and Zosyn. Discharged on Vancomycin. He had amputation of the right 2nd toe. Patient was infusing Vancomycin himself twice daily. His Vancomycin level was about 44 on the . His creatinine had risen to 5.2. It was 1.27 on the . Earlier it was less than 1. Patient was advised to stop taking Vancomycin 2 days ago which he did. He started noticing swelling all over his body including scrotum. Concerned, he presented to the ER. His creatinine is 4.8 today. He demonstrates generalized edema. Vancomycin level is about 33. He is being admitted. Review of Systems Constitutional: COMPLAINS OF: Fatigue, Weight gain Cardiovascular: DENIES: Chest pain, Palpitations Gastrointestinal: DENIES: Abdominal pain, Black stools, Bloody stools Musculoskeletal: DENIES: Joint pain, Muscle aches Neurologic: DENIES: Abnormal gait, Headache Psychiatric: DENIES: Confusion, Hallucinations Past Family Social History Allergies: Coded Allergies: acetaminophen (Verified Allergy, Mild, Hives, 11/10/17) amoxicillin (Verified Allergy, Mild, Hives, 11/10/17) oxycodone (Verified Allergy, Mild, Hives, 11/10/17) *MDRO Multi-Drug Resistant Organism (Verified Adverse Reaction, Unknown, 11/10/17) MRSA (foot wound) - 09/2015 & 09/26/16 Past Medical History Type 2 diabetes mellitus Hypertension Lower extremity DVT Non ischemic cardiomyopathy PAD History of tobacco abuse. Reported Medications Folic Acid 1 Mg Tablet 1 Mg PO DAILY Oxycodone (Oxycodone HCl) 5 Mg Tab 10 Mg PO Q4H PRN Norvasc (Amlodipine Besylate) 5 Mg Tab 5 Mg PO DAILY Aspirin 81 Mg Chew 81 Mg CHEW DAILY Lantus Inj (Insulin Glargine) 1,000 Unit/10 Ml Vial 28 Units SQ BID Klor-Con 10 (Potassium Chloride) 10 Meq Tab 10 Meq PO BID Lasix (Furosemide) 40 Mg Tab 40 Mg PO BID Pantoprazole (Pantoprazole Sodium) 40 Mg Tab 40 Mg PO DAILY Xarelto (Rivaroxaban) 20 Mg Tab 20 Mg PO DAILY@1600 Lisinopril 20 Mg Tab 40 Mg PO DAILY Coreg (Carvedilol) 12.5 Mg Tab 25 Mg PO Q12HR Lipitor (Atorvastatin Calcium) 10 Mg Tab 10 Mg PO DAILY Active Ordered Medications Current Medications Medications (Trade) Dose Ordered Sig/[place] Route Start Time Stop Time Status Last Admin (NS Flush) 2 ml UNSCH PRN IV FLUSH 11/10/17 16:15 (NS Flush) 2 ml BID IV FLUSH 11/10/17 21:00 (Narcan Inj) 0.4 mg UNSCH PRN IV PUSH 11/10/17 16:15 (Morphine Inj) 2 mg Q3H PRN IV PUSH 11/10/17 17:15 (Norvasc) 5 mg DAILY PO 11/11/17 09:00 (Aspirin Chew) 81 mg DAILY CHEW 11/11/17 09:00 (Lipitor) 10 mg DAILY PO 11/11/17 09:00 (Coreg) 25 mg Q12HR PO 11/10/17 21:00 (Folate) 1 mg DAILY PO 11/11/17 09:00 (Prinivil) 40 mg DAILY PO 11/11/17 09:00 (Protonix) 40 mg DAILY PO 11/11/17 09:00 (Heparin Inj) 5,000 units UNSCH PRN IV PUSH 11/10/17 23:15 (Heparin Inj) 2,500 units UNSCH PRN IV PUSH 11/10/17 23:15 Heparin Sodium/ Dextrose 250 ml @ 9 mls/hr TITRATE PRN IV 11/10/17 17:15 UNV Family History reviewed, non contributory Social History Lives in [place]. . Smoked for 30 years, quit 2 weeks ago. Occasionally smokes Marijuana. Physical Exam Vital Signs Vital Signs Date Time Temp Pulse Resp B/P (MAP) Pulse Ox O2 Delivery O2 Flow Rate FiO2 11/10/17 16:53 11/10/17 16:30 77 16 141/76 (97) 98 Room Air 11/10/17 13:16 97.8 90 18 159/104 (122) 100 Physical Exam GENERAL: alert, oriented, no distress. SKIN: Warm and dry. HEAD: Normocephalic. EYES: No scleral icterus. No injection or drainage. NECK: Supple, trachea midline. No JVD or lymphadenopathy. CARDIOVASCULAR: Regular rate and rhythm without murmurs, gallops, or rubs. RESPIRATORY: Breath sounds equal bilaterally. No accessory muscle use. GASTROINTESTINAL: Abdomen soft, non-tender, nondistended. MUSCULOSKELETAL: 2+ edema. Right foot: signs of recent surgery. Erythema and inflammation. BACK: Nontender without obvious deformity. No CVA tenderness. Laboratory Laboratory Tests Test 11/10/17 13:45 11/10/17 15:00 White Blood Count 10.3 Red Blood Count 3.99 Hemoglobin 10.5 Hematocrit 32.6 Mean Corpuscular Volume 81.6 Mean Corpuscular Hemoglobin 26.4 Mean Corpuscular Hemoglobin Concent 32.3 Red Cell Distribution Width 16.4 Platelet Count 307 Mean Platelet Volume 8.8 Neutrophils (%) (Auto) 78.0 Lymphocytes (%) (Auto) 11.8 Monocytes (%) (Auto) 6.7 Eosinophils (%) (Auto) 2.6 Basophils (%) (Auto) 0.9 Neutrophils # (Auto) 8.1 Lymphocytes # (Auto) 1.2 Monocytes # (Auto) 0.7 Eosinophils # (Auto) 0.3 Basophils # (Auto) 0.1 CBC Comment DIFF FINAL Differential Comment Erythrocyte Sedimentation Rate 41 Blood Urea Nitrogen 50 Creatinine 4.81 Random Glucose 201 Total Protein 7.3 Albumin 2.5 Calcium Level 8.1 Alkaline Phosphatase 130 Aspartate Amino Transf (AST/SGOT) 20 Alanine Aminotransferase (ALT/SGPT) 19 Total Bilirubin 0.8 Sodium Level 132 Potassium Level 3.3 Chloride Level 99 Carbon Dioxide Level 23.1 Anion Gap 10 Estimat Glomerular Filtration Rate 13 Lactic Acid Level 1.2 C-Reactive Protein 4.20 Random Vancomycin Level 33.8 Urine Color LIGHT-YELLOW Urine Turbidity CLEAR Urine pH 5.5 Urine Specific [place] 1.006 Urine Protein TRACE Urine Glucose (UA) NEG Urine Ketones NEG Urine Occult Blood TRACE Urine Nitrite NEG Urine Bilirubin NEG Urine Urobilinogen LESS THAN 2.0 Urine Leukocyte Esterase MOD Urine RBC 3 Urine WBC 15 Urine Bacteria OCC Microscopic Urinalysis Comment CATH-CULTURE IND Date/Time Source Procedure Growth Status 11/10/17 13:45 Blood Peripheral Aerobic Blood Culture Pending Received 11/10/17 13:45 Blood Peripheral Anaerobic Blood Culture Pending Received 11/10/17 15:00 Urine Catheterized Urine Urine Culture Pending Received Result Diagram: 11/10/17 1345 11/10/17 1345 Assessment and Plan Problem List: (1) Acute kidney injury ICD Codes: N17.9 - Acute kidney failure, unspecified Plan: This is likely secondary to Vancomycin induced nephrotoxicity. Vancomycin can cause allergic interstitial nephritis. Obviously hold Vancomycin. Clinically he appears volume overloaded. Start Furosemide. Replace potassium. Monitor urine output and renal function. Avoid any other nephrotoxic agents. (2) CHF (congestive heart failure) ICD Codes: I50.9 - Heart failure, unspecified Status: Chronic Plan: Monitor fluid status. Continue Lasix. (3) DVT (deep venous thrombosis) ICD Codes: I82.409 - Acute embolism and thrombosis of unspecified deep veins of unspecified lower extremity Status: Acute Plan: Xarelto will have to be held while he is in renal failure. Heparin drip is acceptable. (4) Type II diabetes mellitus with neurological manifestations, uncontrolled ICD Codes: E11.41 - Type II diabetes mellitus with neurological manifestations , uncontrolled Status: Acute Plan: Insulin coverage, maintain blood glucose between 140 and 180 Assessment and Plan Thanks for the consult. Mathew Cooper MD Nov 10, 2017 17:34
[2017-11-10] MEDS ORDERED: POTASSIUM CHLORIDE 10 MEQ CONTROLLED RELEASE TAB PO ONE (18:00)
[2017-11-10 18:10] VITALS: BP 162/95; PULSE 83; RESP 18; TEMP 98.3; O2SAT 99
[2017-11-10] MEDS: MORPHINE SULFATE 2 MG/ML INJ IV PUSH PRN ×2 (18:39→21:31)
[2017-11-10 20:30] VITALS: BP 161/96; PULSE 86; RESP 18; TEMP 98.5; O2SAT 99
[2017-11-10 21:00] VITALS: PULSE 115; PULSE 81
[2017-11-10] MEDS: CARVEDILOL 12.5 MG TAB PO SCH (21:27)
[2017-11-10] MEDS: SODIUM CHLORIDE 0.9% FLUSH 10 ML FLUSH IV FLUSH SCH (21:31)
[2017-11-10] MEDS: HEPARIN-D5W 25,000 U/250 ML 250 ML IV PRN (21:59)
[2017-11-10] MEDS ORDERED: HEPARIN SODIUM - IV 10,000 UNITS/10 ML VIAL IV PUSH PRN ×2 (23:15)
[2017-11-11] VITALS (10 sets, daily range): BP systolic 116–159; BP diastolic 68–90; PULSE 63–75; RESP 18–20; TEMP 97.3–99; O2SAT 97–100
[2017-11-11] MEDS ORDERED: GLUCAGON 1 MG/ML VIAL OTHER PRN (00:45)
[2017-11-11] MEDS ORDERED: DEXTROSE 50% IN WATER 50 ML VIAL(D50) IV PUSH PRN (00:45)
[2017-11-11] MEDS: MORPHINE SULFATE 2 MG/ML INJ IV PUSH PRN ×4 (01:15→21:23)
[2017-11-11] MEDS: ONDANSETRON HCL 4 MG/2 ML VIAL IV PUSH PRN (04:10)
[2017-11-11] MEDS ORDERED: MORPHINE SULFATE 2 MG/ML INJ IM PRN (05:15)
[2017-11-11] MEDS ORDERED: FUROSEMIDE 40 MG/4 ML VIAL IV PUSH SCH (06:00)
[2017-11-11] MEDS: ATORVASTATIN 10 MG TAB PO SCH (08:27)
[2017-11-11] MEDS: FOLIC ACID 1 MG TAB PO SCH (08:27)
[2017-11-11] MEDS: PANTOPRAZOLE SOD 40 MG DELAYED RELEASE TAB PO SCH (08:28)
[2017-11-11] MEDS: ASPIRIN 81 MG CHEW TAB CHEW SCH (08:28)
[2017-11-11] MEDS: SODIUM CHLORIDE 0.9% FLUSH 10 ML FLUSH IV FLUSH SCH ×2 (08:28→21:27)
[2017-11-11] MEDS: CARVEDILOL 12.5 MG TAB PO SCH ×2 (08:28→21:26)
[2017-11-11] MEDS: amLODIPine BESYLATE 5 MG TAB PO SCH (08:28)
[2017-11-11] MEDS: INSULIN ASPART SUPPLEMENTAL SCALE SQ SCH ×4 (08:43→21:26)
[2017-11-11] MEDS ORDERED: LISINOPRIL 20 MG TAB PO SCH (09:00)
--- NOTE | 2017-11-11 10:18 | HHI.PR ---
Subjective Remarks The patient says that his PICC line has not been working for a while. He said he came to the emergency department and they just changed the bandage but did not correct/ replace the PICC line. The patient says he has been feeling poorly. He said his whole body has been swelling, including his genitalia. He says overall he is improving. Discussed with nursing. Objective Vitals Vital Signs Date Time Temp Pulse Resp B/P (MAP) Pulse Ox O2 Delivery O2 Flow Rate FiO2 11/11/17 08:45 16 11/11/17 08:04 71 11/11/17 07:37 98.0 71 20 159/90 (113) 98 11/11/17 06:13 97.6 70 20 156/86 (109) 97 11/11/17 00:35 98.4 75 19 145/82 (103) 98 11/10/17 21:00 115 11/10/17 21:00 81 11/10/17 20:30 98.5 86 18 161/96 (117) 99 11/10/17 18:10 98.3 83 18 162/95 (117) 99 11/10/17 16:53 11/10/17 16:30 77 16 141/76 (97) 98 Room Air 11/10/17 13:16 97.8 90 18 159/104 (122) 100 I/O 11/10/17 11/10/17 11/10/17 11/11/17 11/11/17 11/11/17 07:00 15:00 23:00 07:00 15:00 23:00 Intake Total 49.9 ml Output Total 1000 ml Balance -950.1 ml Intake IV Total 49.9 ml Output Urine Total 1000 ml # Voids 1 Result Diagram: 11/10/17 1345 11/10/17 1345 Imaging Last Impressions Renal Ultrasound 11/10/17 1618 Signed Impressions: Service Date/Time: Friday, November 10, 2017 16:46 - CONCLUSION: Unremarkable renal ultrasound. Bryn Mccall MD Chest X-Ray 11/10/17 1332 Signed Impressions: Service Date/Time: Friday, November 10, 2017 13:53 - CONCLUSION: Diffuse prominence of interstitial markings likely related to pulmonary venous hypertension or mild edema. Clifford Priest MD Foot MRI 11/10/17 0000 Signed Impressions: Service Date/Time: Friday, November 10, 2017 15:06 - CONCLUSION: Biophysical changes with increased edema involving the first proximal phalanx could be due to postsurgical changes and there is also some degree of partial dislocation of the first interphalangeal joint and osteomyelitis within this digit it is difficult to exclude should be correlated clinically. Bryn Mccall MD Objective Remarks GENERAL: This is a well-nourished, well-developed patient, in no apparent distress. SKIN: No rashes, ecchymoses or lesions. Cool and dry. HEAD: Atraumatic. Normocephalic. No temporal or scalp tenderness. EYES:. No scleral icterus. No injection or drainage. ENT: Nose without bleeding, purulent drainage or septal hematoma. Airway patent. NECK: Trachea midline. No JVD or lymphadenopathy. Supple, nontender, no meningeal signs. CARDIOVASCULAR: Regular rate and rhythm without murmurs, gallops, or rubs. RESPIRATORY: CTAB. No wheezing/ rales/ rhonchi. GASTROINTESTINAL: Abdomen soft,. Distended abdomen. No rebound. No suprapubic tenderness. No guarding. MUSCULOSKELETAL: Extremities without clubbing, cyanosis. Generalized anasarca. Bilateral lower extremity 1+ edema. Right foot metatarsal amputation with surgical sutures. Left foot with amputation of all toes. NEUROLOGICAL: Awake and alert. Motor and sensory grossly within normal limits. Normal speech. PSYCH: Mood and affect appropriate. Medications and IVs Current Medications Medications (Trade) Dose Ordered Sig/[place] Route Start Time Stop Time Status Last Admin (NS Flush) 2 ml UNSCH PRN IV FLUSH 11/10/17 16:15 (NS Flush) 2 ml BID IV FLUSH 11/10/17 21:00 11/10/17 21:31 (Narcan Inj) 0.4 mg UNSCH PRN IV PUSH 11/10/17 16:15 (Morphine Inj) 2 mg Q3H PRN IV PUSH 11/10/17 17:15 11/11/17 01:15 (Norvasc) 5 mg DAILY PO 11/11/17 09:00 11/11/17 08:28 (Aspirin Chew) 81 mg DAILY CHEW 11/11/17 09:00 11/11/17 08:28 (Lipitor) 10 mg DAILY PO 11/11/17 09:00 11/11/17 08:27 (Coreg) 25 mg Q12HR PO 11/10/17 21:00 11/11/17 08:28 (Folate) 1 mg DAILY PO 11/11/17 09:00 11/11/17 08:27 (Prinivil) 40 mg DAILY PO 11/11/17 09:00 11/11/17 08:27 (Protonix) 40 mg DAILY PO 11/11/17 09:00 11/11/17 08:28 (Heparin Inj) 5,000 units UNSCH PRN IV PUSH 11/10/17 23:15 Future Hold (Heparin Inj) 2,500 units UNSCH PRN IV PUSH 11/10/17 23:15 Future Hold Heparin Sodium/ Dextrose 250 ml @ 9 mls/hr TITRATE PRN IV 11/10/17 17:15 Future Hold 11/10/17 21:59 (Lasix Inj) 40 mg BID@0600,1800 IV PUSH 11/11/17 06:00 (D50w (Vial) Inj) 50 ml UNSCH PRN IV PUSH 11/11/17 00:45 (Glucagon Inj) 1 mg UNSCH PRN OTHER 11/11/17 00:45 (NovoLOG SUPPLEMENTAL SCALE) 1 ACHS SLIDING SCALE SQ 11/11/17 08:00 11/11/17 08:43 (Zofran Inj) 4 mg Q6HR PRN IV PUSH 11/11/17 04:00 11/11/17 04:10 (Morphine Inj) 2 mg Q3H PRN IM 11/11/17 05:15 11/11/17 08:38 A/P Assessment and Plan Acute renal failure Nephrology consult appreciated. Possibly s/t vancomycin toxicity. Renal US without acute pathology. - d/c vancomycin. - follow up with nephrology. - continue diuresis. - avoid nephrotoxins. Acute on chronic CHF EF 30%, was at one point on life vest with EF 16%. Has generalized anasarca. - continue with diuresis. IV diuretics on hold as no IV access. Will start Lasix 80 mg PO BID for now. - continue cardiac regimen. - telemetry. Recent osteomyelitis of foot With cultures growing MRSA. The patient was on Vanco IV at home per ID. - Vancomycin d/c as above. - ID consult requested. Chronic anticoagulation on Xarelto The pt denies a history of DVT. He says he was placed on Xarelto because of his CHF. - d/c Xarelto in setting of renal failure. - heparin gtt. DM Glucose well controlled at this time. - continue heparin gtt. Hypokalemia S/t Lasix. - monitor BMP and replete as needed. DVT prophylaxis on heparin Jacob Jefferson DO Nov 11, 2017 10:18
[2017-11-11] MEDS ORDERED: FUROSEMIDE 80 MG TAB PO SCH (11:00)
--- NOTE | 2017-11-11 11:49 | HHI.NPPN ---
Subjective Interval History Labs are pending. Non oliguric. On Lasix. Review of Systems General Constitutional: Fatigue Objective Data Data Vital Signs Date Time Temp Pulse Resp B/P (MAP) Pulse Ox O2 Delivery O2 Flow Rate FiO2 11/11/17 11:35 98.8 69 20 136/85 (102) 99 11/11/17 08:45 16 11/11/17 08:04 71 11/11/17 07:37 98.0 71 20 159/90 (113) 98 11/11/17 06:13 97.6 70 20 156/86 (109) 97 11/11/17 00:35 98.4 75 19 145/82 (103) 98 11/10/17 21:00 115 11/10/17 21:00 81 11/10/17 20:30 98.5 86 18 161/96 (117) 99 11/10/17 18:10 98.3 83 18 162/95 (117) 99 11/10/17 16:53 11/10/17 16:30 77 16 141/76 (97) 98 Room Air 11/10/17 13:16 97.8 90 18 159/104 (122) 100 -: 11/10/17 1345 11/10/17 1345 Microbiology 11/10/17 Aerobic Blood Culture - Preliminary, Resulted NO GROWTH IN 1 DAY 11/10/17 Anaerobic Blood Culture - Preliminary, Resulted NO GROWTH IN 1 DAY 11/10/17 Aerobic Blood Culture - Preliminary, Resulted NO GROWTH IN 1 DAY 11/10/17 Anaerobic Blood Culture - Preliminary, Resulted NO GROWTH IN 1 DAY 11/10/17 Urine Culture, Received Pending Physical Exam General Appearance: Well Developed, No Acute Distress Neck Neck Exam: Neck Supple Pulmonary Resp Exam: Clear Bilaterally Cardiology CV Exam: Regular, Normal Sinus Rhythm Gastrointestinal/Abdomen GI Exam: Soft, Non-Tender Musculoskeletal MS Remarks right foot surgery: 2nd toe amputation. Sutures are in place. Swelling of the leg and foot with some erythema. Extremeties Extremities Exam: Moderate Edema Neurologic Neuro Exam: Alert, Awake, Oriented, Moving All Extremities Assessment/Plan Problem List: (1) Acute kidney injury ICD Codes: N17.9 - Acute kidney failure, unspecified Plan: This is likely secondary to Vancomycin induced nephrotoxicity. Vancomycin can cause allergic interstitial nephritis. Vancomycin is held. Continue Furosemide. Replace potassium as needed. Monitor urine output and renal function. Avoid any other nephrotoxic agents. (2) CHF (congestive heart failure) ICD Codes: I50.9 - Heart failure, unspecified Status: Chronic Plan: Monitor fluid status. Continue Lasix. (3) DVT (deep venous thrombosis) ICD Codes: I82.409 - Acute embolism and thrombosis of unspecified deep veins of unspecified lower extremity Status: Acute Plan: Xarelto will have to be held while he is in renal failure. Heparin drip is acceptable. (4) Type II diabetes mellitus with neurological manifestations, uncontrolled ICD Codes: E11.41 - Type II diabetes mellitus with neurological manifestations , uncontrolled Status: Acute Plan: Insulin coverage, maintain blood glucose between 140 and 180 Mathew Cooper MD Nov 11, 2017 11:49
--- NOTE | 2017-11-11 11:56 | MB ---
cc: VANITA JENA MD DATE OF CONSULTATION 11/11/[address] Singh REASON FOR CONSULTATION Patient with osteomyelitis of foot, recent surgery. He was discharged on vancomycin IV for MRSA, now with acute renal failure. Please evaluate. HISTORY OF PRESENT ILLNESS This is a 52-year-old male who was just recently discharged from the hospital after surgery of the right foot for osteomyelitis. He underwent right second digit amputation and right hallux proximal phalanx head resection on 10/31/2017. Culture of the foot had MRSA. The patient was subsequently discharged from the hospital with intravenous vancomycin. Prior to discharge, she had erythema at the surgical site and the area around it and also serous drainage from the surgical incision. The patient was given vancomycin at home. He was followed by [facility] and labs were measured. The patient states that he stopped using the medications after he was told to stop on 11/06. I was called by the nurse through my answering service and told that the vancomycin level was 44 and I told the nurse to make sure that the patient is not receiving any vancomycin. The pharmacist at the [facility] said that he would check into the vancomycin levels and make a decision on management of the vancomycin. The patient came to the emergency department because he said that he started having pain over all and swelling. He also states he was having nausea and vomiting, but no fever. LABORATORY DATA Lab work revealed marked elevation in his creatinine to 4.81 and an estimated GFR of 13. Vancomycin level was 33. Blood cultures were taken. Urinalysis was also taken and it showed a white count of 15. The patient had a chest x-ray which showed diffuse interstitial marking likely related to pulmonary venous hypertension or mild edema. MRI of the foot was performed and shows increased edema involving the first proximal phalanx which could be due to postsurgical changes. There is also some degree of partial dislocation of the first interphalangeal joint and osteomyelitis within this digit difficult to exclude. The patient is very angry about his kidney function. Renal ultrasound of the kidneys is unremarkable. He reports that he is producing urine and it is noted that he had 1000 mL measured this morning and 6:59. He was seen in the emergency department yesterday afternoon. PAST MEDICAL HISTORY 1. Diabetes mellitus 2. Hypertension 3. COPD 4. CHF 5. Gastroesophageal reflux disease 6. History of lower extremity DVT. 7. Recent resection of second toe on the right foot along with partial right hallux at the proximal phalanx head. 7. Transmetatarsal amputation of the left forefoot. 8. 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 ALLERGIES AMOXICILLIN, ACETAMINOPHEN, OXYCODONE. MEDICATIONS 1. Lasix 2. Norvasc 3. Aspirin 4. Lipitor 5. Folate 6. Protonix 7. Morphine sulfate p.r.n. 8. Zofran p.r.n. 9. Coreg SOCIAL HISTORY The patient smokes four cigarettes a day. Occasional alcohol. No illicit drugs. FAMILY HISTORY Noncontributory REVIEW OF SYSTEMS Pertinent mentioned above in history of present illness. The patient denies dizziness or shortness of breath. PHYSICAL EXAMINATION This is a well-developed male who is in no acute distress. He is awake and alert and oriented. VITAL SIGNS: Include temperature 98 degrees, BP 150/90, respirations 16, heart rate 70. HEENT: Head is atraumatic. Extraocular movements grossly intact, pupils reactive to light. No icterus. Oropharynx moist mucosa. No thrush. No lesions. NECK: Supple. No adenopathy. No visible swelling. LUNGS: Decreased breath sounds throughout. HEART: Regular S1-S2 with a without murmurs, rubs or gallops. ABDOMEN: Bowel sounds present, soft, nontender. RECTAL: Not performed. EXTREMITIES: 2+ edema at the extremities. No clubbing or cyanosis. The right foot has surgical sutures in place over the area of prior surgery at the base where the second toe is located and also at the top of the great toe. The area is dry. There is hyperpigmentation over the area involved. No drainage. NEUROLOGIC: No gross focal findings. PSYCHIATRIC: The patient is anxious, but cooperative. LABORATORY DATA WBC 10.3, platelets 307, hemoglobin 10.5. Sodium 132, LFTs normal. Sedimentation rate 41, C-reactive protein 4.2. IMPRESSION 1. Acute renal failure secondary to vancomycin toxicity. 2. Recent osteomyelitis. The patient was receiving vancomycin because of continued cellulitis and inflammatory changes postop. New MRI reportedly states it is difficult to determine whether there is osteomyelitis to the first digit. Prior culture due to MRSA. 3. The patient has a PICC line in place via which he was receiving the vancomycin. The PICC line appears intact. RECOMMENDATIONS 1. Hold off any additional antibiotics. 2. Monitor the renal function. Nephrology is following the patient for the renal failure. 3. We may need to get podiatry involvement since he may have ongoing osteomyelitis. He is refusing any further antibiotics and if he does have osteo, he may require further surgery in order to avoid any additional antibiotic treatment. Thank you for this consultation. I will follow the patient with you. Vanita Jean MD FD/ROBERTO /10:58 AM /11:21 AM
[2017-11-11] MEDS: POLYETHYLENE GLYCOL 17 GM PKG PO SCH (12:34)
[2017-11-11 13:35] LABS: AUTOMATED NEUTROPHIL # 6.5 TH/MM3 (1.8-7.7); BASOPHIL # 0.1 TH/MM3 (0-0.2); BASOPHIL % 0.8 % (0.0-2.0); EOSINOPHIL # 0.4 TH/MM3 (0-0.4); EOSINOPHIL % 4.4 % (0.0-4.0); HEMATOCRIT 29.9 % (39.0-51.0); HEMOGLOBIN 9.8 GM/DL (13.0-17.0); LYMPH % 10.7 % (9.0-44.0); LYMPHOCYTE # 0.9 TH/MM3 (1.0-4.8); MEAN CELL VOLUME 80.7 FL (80.0-100.0); MEAN CORPUSCULAR HEMOGLOBIN 26.4 PG (27.0-34.0); MEAN CORPUSCULAR HGB CONC 32.8 % (32.0-36.0); MEAN PLATELET VOLUME 8.4 FL (7.0-11.0); MONO % 6.8 % (0.0-8.0); MONOCYTE # 0.6 TH/MM3 (0-0.9); NEUT % 77.3 % (16.0-70.0); PLATELET COUNT 268 TH/MM3 (150-450); RED CELL DISTRIBUTION WIDTH 16.1 % (11.6-17.2); WHITE BLOOD COUNT 8.4 TH/MM3 (4.0-11.0)
[2017-11-11 14:08] LABS: CALCIUM 8.1 MG/DL (8.5-10.1); CREATININE 4.47 MG/DL (0.60-1.30)
[2017-11-11] MEDS ORDERED: POTASSIUM CHLORIDE 10 MEQ CONTROLLED RELEASE TAB PO ONE (15:00)
[2017-11-11] MEDS: FUROSEMIDE 40 MG/4 ML VIAL IV PUSH SCH (16:37)
[2017-11-12] VITALS (10 sets, daily range): BP systolic 113–134; BP diastolic 65–79; PULSE 58–74; RESP 18; TEMP 97.4–98.7; O2SAT 97–99
[2017-11-12] MEDS: ONDANSETRON HCL 4 MG/2 ML VIAL IV PUSH PRN (00:41)
[2017-11-12] MEDS: SODIUM CHLORIDE 0.9% FLUSH 10 ML FLUSH IV FLUSH PRN ×2 (00:42→01:08)
[2017-11-12] MEDS: MORPHINE SULFATE 2 MG/ML INJ IV PUSH PRN ×6 (01:09→23:46)
[2017-11-12 06:58] LABS: HEMATOCRIT 30.3 % (39.0-51.0); HEMOGLOBIN 9.9 GM/DL (13.0-17.0); MEAN CELL VOLUME 81.4 FL (80.0-100.0); MEAN CORPUSCULAR HEMOGLOBIN 26.7 PG (27.0-34.0); MEAN CORPUSCULAR HGB CONC 32.8 % (32.0-36.0); PLATELET COUNT 284 TH/MM3 (150-450); RED BLOOD COUNT 3.72 MIL/MM3 (4.50-5.90); RED CELL DISTRIBUTION WIDTH 16.1 % (11.6-17.2); WHITE BLOOD COUNT 8.3 TH/MM3 (4.0-11.0)
[2017-11-12 07:21] LABS: BICARBONATE 26.9 MEQ/L (21.0-32.0); CREATININE 4.27 MG/DL (0.60-1.30); MAGNESIUM 1.7 MG/DL (1.5-2.5)
[2017-11-12] MEDS: POLYETHYLENE GLYCOL 17 GM PKG PO SCH (07:50)
[2017-11-12] MEDS: ATORVASTATIN 10 MG TAB PO SCH (07:50)
[2017-11-12] MEDS: FOLIC ACID 1 MG TAB PO SCH (07:50)
[2017-11-12] MEDS: ASPIRIN 81 MG CHEW TAB CHEW SCH (07:50)
[2017-11-12] MEDS: amLODIPine BESYLATE 5 MG TAB PO SCH (07:50)
[2017-11-12] MEDS: PANTOPRAZOLE SOD 40 MG DELAYED RELEASE TAB PO SCH (07:50)
[2017-11-12] MEDS: CARVEDILOL 12.5 MG TAB PO SCH ×2 (07:50→20:12)
[2017-11-12] MEDS: INSULIN ASPART SUPPLEMENTAL SCALE SQ SCH ×4 (07:51→20:40)
[2017-11-12] MEDS: SODIUM CHLORIDE 0.9% FLUSH 10 ML FLUSH IV FLUSH SCH ×2 (07:51→20:15)
[2017-11-12] MEDS: FUROSEMIDE 40 MG/4 ML VIAL IV PUSH SCH ×2 (07:51→17:06)
[2017-11-12] MEDS ORDERED: POTASSIUM CHLORIDE 10 MEQ CONTROLLED RELEASE TAB PO ONE (09:00)
--- NOTE | 2017-11-12 09:59 | HHI.PR ---
Subjective Remarks The patient said he felt uncomfortable. He says he hasn't had a bowel movement in about 6 days. He has been ambulating. He said he is breathing better. He was wondering how much longer he would be in the hospital. Objective Vitals Vital Signs Date Time Temp Pulse Resp B/P (MAP) Pulse Ox O2 Delivery O2 Flow Rate FiO2 11/12/17 08:00 97.5 58 18 127/76 (93) 97 11/12/17 07:45 58 11/12/17 07:13 16 11/12/17 04:00 97.4 59 18 113/65 (81) 98 11/12/17 04:00 59 11/12/17 00:00 74 11/12/17 00:00 98.7 67 18 114/67 (83) 98 11/11/17 22:11 66 11/11/17 20:00 99.0 65 18 116/68 (84) 99 11/11/17 16:00 63 11/11/17 15:49 97.3 64 20 130/74 (92) 100 11/11/17 11:58 65 11/11/17 11:35 98.8 69 20 136/85 (102) 99 I/O 11/11/17 11/11/17 11/11/17 11/12/17 11/12/17 11/12/17 07:00 15:00 23:00 07:00 15:00 23:00 Intake Total 49.9 ml 360 ml Output Total 1000 ml 700 ml Balance -950.1 ml -340 ml Intake Oral 360 ml IV Total 49.9 ml Output Urine Total 1000 ml 700 ml # Voids 1 Result Diagram: 11/12/17 0600 11/12/17 0600 Imaging Last Impressions Renal Ultrasound 11/10/17 1618 Signed Impressions: Service Date/Time: Friday, November 10, 2017 16:46 - CONCLUSION: Unremarkable renal ultrasound. Bryn Mccall MD Chest X-Ray 11/10/17 1332 Signed Impressions: Service Date/Time: Friday, November 10, 2017 13:53 - CONCLUSION: Diffuse prominence of interstitial markings likely related to pulmonary venous hypertension or mild edema. Clifford Priest MD Foot MRI 11/10/17 0000 Signed Impressions: Service Date/Time: Friday, November 10, 2017 15:06 - CONCLUSION: Biophysical changes with increased edema involving the first proximal phalanx could be due to postsurgical changes and there is also some degree of partial dislocation of the first interphalangeal joint and osteomyelitis within this digit it is difficult to exclude should be correlated clinically. Bryn Mccall MD Objective Remarks GENERAL: This is a well-nourished, well-developed patient, in no apparent distress. SKIN: No rashes, ecchymoses or lesions. Cool and dry. HEAD: Atraumatic. Normocephalic. No temporal or scalp tenderness. EYES:. No scleral icterus. No injection or drainage. ENT: Nose without bleeding, purulent drainage or septal hematoma. Airway patent. NECK: Trachea midline. No JVD or lymphadenopathy. Supple, nontender, no meningeal signs. CARDIOVASCULAR: Regular rate and rhythm without murmurs, gallops, or rubs. RESPIRATORY: CTAB. No wheezing/ rales/ rhonchi. GASTROINTESTINAL: Abdomen soft, nontender. No guarding. + BS. MUSCULOSKELETAL: Extremities without clubbing, cyanosis. Generalized anasarca. Bilateral lower extremity 1-2+ edema. Right foot metatarsal amputation with surgical sutures. Left foot with amputation of all toes. NEUROLOGICAL: Awake and alert. Motor and sensory grossly within normal limits. Normal speech. PSYCH: Mood and affect appropriate. Medications and IVs Current Medications Medications (Trade) Dose Ordered Sig/Orville Route Start Time Stop Time Status Last Admin (NS Flush) 2 ml UNSCH PRN IV FLUSH 11/10/17 16:15 11/12/17 01:08 (NS Flush) 2 ml BID IV FLUSH 11/10/17 21:00 11/11/17 21:27 (Narcan Inj) 0.4 mg UNSCH PRN IV PUSH 11/10/17 16:15 (Morphine Inj) 2 mg Q3H PRN IV PUSH 11/10/17 17:15 11/12/17 06:13 (Norvasc) 5 mg DAILY PO 11/11/17 09:00 11/12/17 07:50 (Aspirin Chew) 81 mg DAILY CHEW 11/11/17 09:00 11/12/17 07:50 (Lipitor) 10 mg DAILY PO 11/11/17 09:00 11/12/17 07:50 (Coreg) 25 mg Q12HR PO 11/10/17 21:00 11/12/17 07:50 (Folate) 1 mg DAILY PO 11/11/17 09:00 11/12/17 07:50 (Protonix) 40 mg DAILY PO 11/11/17 09:00 11/12/17 07:50 (Heparin Inj) 5,000 units UNSCH PRN IV PUSH 11/10/17 23:15 Future hold (Heparin Inj) 2,500 units UNSCH PRN IV PUSH 11/10/17 23:15 Future hold Heparin Sodium/ Dextrose 250 ml @ 9 mls/hr TITRATE PRN IV 11/10/17 17:15 Future hold 11/10/17 21:59 (D50w (Vial) Inj) 50 ml UNSCH PRN IV PUSH 11/11/17 00:45 (Glucagon Inj) 1 mg UNSCH PRN OTHER 11/11/17 00:45 (NovoLOG SUPPLEMENTAL SCALE) 1 ACHS SLIDING SCALE SQ 11/11/17 08:00 11/11/17 21:26 (Zofran Inj) 4 mg Q6HR PRN IV PUSH 11/11/17 04:00 11/12/17 00:41 (Morphine Inj) 2 mg Q3H PRN IM 11/11/17 05:15 11/11/17 08:38 (Miralax) 17 gm DAILY PO 11/11/17 13:00 11/12/17 07:50 (Lasix Inj) 40 mg BID@,18 IV PUSH 11/11/17 18:00 11/12/17 07:51 A/P Assessment and Plan Acute renal failure Nephrology consult appreciated. Possibly s/t vancomycin toxicity. Renal US without acute pathology. - d/c vancomycin. - follow up with nephrology. - continue diuresis with Lasix 40 mg IV BID. - avoid nephrotoxins. Acute on chronic CHF EF 30%, was at one point on life vest with EF 16%. Has generalized anasarca. - continue with diuresis as above. - continue cardiac regimen. - telemetry. Recent osteomyelitis of foot With cultures growing MRSA. The patient was on Vanco IV at home per ID. ID consult appreciated. - Vancomycin d/c as above. - follow up with ID. Chronic anticoagulation on Xarelto The pt denies a history of DVT. He says he was placed on Xarelto because of his CHF. - d/c Xarelto in setting of renal failure. - heparin gtt. DM Glucose well controlled at this time. - Insulin sliding scale. Hypokalemia S/t Lasix. - monitor BMP and replete as needed. Anemia Possibly secondary to renal disease. - Anemia workup in process. DVT prophylaxis: on heparin drip Discharge Planning Awaiting improvement in renal function Jacob Armenta DO Nov 12, 2017 09:59
[2017-11-12] MEDS ORDERED: BISACODYL EC 5 MG TABEC PO ONE (10:00)
[2017-11-12] MEDS ORDERED: LACTULOSE SYRUP 20 GM/30 ML CUP PO ONE (10:00)
[2017-11-12 11:11] LABS: % SATURATION IRON PROFILE 5.4 % (20-50); IRON (FE) 17 MCG/DL (65-175); TOTAL IRON BINDING CAPACITY 316 MCG/DL (250-450)
[2017-11-12 11:36] LABS: FERRITIN 43 NG/ML (26-388)
[2017-11-12] MEDS: HEPARIN-D5W 25,000 U/250 ML 250 ML IV PRN (11:55)
--- NOTE | 2017-11-12 12:05 | HHI.NPPN ---
Subjective Renal Failure: Acute Interval History Renal function is better. No acute concerns. (Keara Patel) Review of Systems General Constitutional: Fatigue (Keara Patel) Objective Data Data 11/12/17 11/13/17 19:00 07:00 Output Total 800 ml Balance -800 ml Output Urine Total 800 ml Vital Signs Date Time Temp Pulse Resp B/P (MAP) Pulse Ox O2 Delivery O2 Flow Rate FiO2 11/12/17 11:52 16 11/12/17 08:00 97.5 58 18 127/76 (93) 97 11/12/17 07:45 58 11/12/17 04:00 97.4 59 18 113/65 (81) 98 11/12/17 04:00 59 11/12/17 00:00 74 11/12/17 00:00 98.7 67 18 114/67 (83) 98 11/11/17 22:11 66 11/11/17 20:00 99.0 65 18 116/68 (84) 99 11/11/17 16:00 63 11/11/17 15:49 97.3 64 20 130/74 (92) 100 (Keara Patel) -: 11/12/17 0600 11/12/17 0600 Imaging Last 72 hours Impressions Renal Ultrasound 11/10/17 1618 Signed Impressions: Service Date/Time: Friday, November 10, 2017 16:46 - CONCLUSION: Unremarkable renal ultrasound. Bryn Mccall MD Chest X-Ray 11/10/17 1332 Signed Impressions: Service Date/Time: Friday, November 10, 2017 13:53 - CONCLUSION: Diffuse prominence of interstitial markings likely related to pulmonary venous hypertension or mild edema. Clifford Priest MD Foot MRI 11/10/17 0000 Signed Impressions: Service Date/Time: Friday, November 10, 2017 15:06 - CONCLUSION: Biophysical changes with increased edema involving the first proximal phalanx could be due to postsurgical changes and there is also some degree of partial dislocation of the first interphalangeal joint and osteomyelitis within this digit it is difficult to exclude should be correlated clinically. Bryn Mccall MD (Keara Patel) Physical Exam General Appearance: Well Developed, No Acute Distress, Comfortable (Keara Patel) Neck Neck Exam: Neck Supple (Keara Patel) Pulmonary Resp Exam: Clear Bilaterally (Keara Patel) Cardiology CV Exam: Regular, Normal Sinus Rhythm (Keara Patel) Gastrointestinal/Abdomen GI Exam: Soft, Non-Tender (Keara Patel) Musculoskeletal MS Exam: Normal Tone, Good Strength (Keara Patel) Integumentary Skin Exam: Clear, Warm, Dry, Intact (Keara Patel) Extremeties Extremities Exam: Pedal Pulses Palpable, Moderate Edema (Keara Patel) Neurologic Neuro Exam: Alert, Awake, Oriented, Moving All Extremities (Keara Patel) Assessment/Plan Discussed Condition With: Patient Assessment Summary: ANDREI/Acute Renal Failure, Anemia of CKD Problem List: (1) Acute kidney injury ICD Codes: N17.9 - Acute kidney failure, unspecified Plan: Normal renal function at baseline. ANDREI is likely secondary to Vancomycin induced nephrotoxicity. Vancomycin can cause allergic interstitial nephritis. It has been held. Renal function is improving. Continue Furosemide. Replace potassium as needed. Monitor urine output and renal function. Avoid any other nephrotoxic agents. (2) CHF (congestive heart failure) ICD Codes: I50.9 - Heart failure, unspecified Status: Chronic Plan: Monitor fluid status. Continue Lasix. (3) DVT (deep venous thrombosis) ICD Codes: I82.409 - Acute embolism and thrombosis of unspecified deep veins of unspecified lower extremity Status: Acute Plan: Xarelto will have to be held while he is in renal failure. He is on heparin gtt (4) Type II diabetes mellitus with neurological manifestations, uncontrolled ICD Codes: E11.41 - Type II diabetes mellitus with neurological manifestations , uncontrolled Status: Acute Plan: Continue Insulin coverage, maintain blood glucose between 140 and 180 (Keara Patel) Plan patient was seen and examined. Agree with above assessment and plan. Renal function has improved. Replace potassium. Monitor urine output and renal function. (Mathew Cooper MD) Keara Patel Nov 12, 2017 12:05 Mathew Cooper MD Nov 12, 2017 21:21
[2017-11-12] MEDS ORDERED: BENZONATATE 100 MG CAP PO PRN (16:30)
[2017-11-13] VITALS (9 sets, daily range): BP systolic 117–132; BP diastolic 67–73; PULSE 57–63; RESP 18–19; TEMP 97.2–98.6; O2SAT 96–99
[2017-11-13] MEDS: MORPHINE SULFATE 2 MG/ML INJ IV PUSH PRN ×7 (02:53→22:24)
[2017-11-13 04:46] LABS: HEMATOCRIT 29.4 % (39.0-51.0); HEMOGLOBIN 9.4 GM/DL (13.0-17.0); MEAN CELL VOLUME 81.5 FL (80.0-100.0); MEAN CORPUSCULAR HEMOGLOBIN 25.9 PG (27.0-34.0); MEAN CORPUSCULAR HGB CONC 31.8 % (32.0-36.0); MEAN PLATELET VOLUME 8.3 FL (7.0-11.0); PLATELET COUNT 270 TH/MM3 (150-450); RED BLOOD COUNT 3.61 MIL/MM3 (4.50-5.90)
[2017-11-13 05:17] LABS: BICARBONATE 26.8 MEQ/L (21.0-32.0); CREATININE 4.05 MG/DL (0.60-1.30); MAGNESIUM 1.7 MG/DL (1.5-2.5)
[2017-11-13] MEDS: INSULIN ASPART SUPPLEMENTAL SCALE SQ SCH ×4 (09:25→21:34)
[2017-11-13] MEDS: amLODIPine BESYLATE 5 MG TAB PO SCH (09:26)
[2017-11-13] MEDS: POLYETHYLENE GLYCOL 17 GM PKG PO SCH (09:26)
[2017-11-13] MEDS: FUROSEMIDE 40 MG/4 ML VIAL IV PUSH SCH (09:27)
[2017-11-13] MEDS: FOLIC ACID 1 MG TAB PO SCH (09:27)
[2017-11-13] MEDS: ATORVASTATIN 10 MG TAB PO SCH (09:28)
[2017-11-13] MEDS: ASPIRIN 81 MG CHEW TAB CHEW SCH (09:28)
[2017-11-13] MEDS: CARVEDILOL 12.5 MG TAB PO SCH ×2 (09:29→21:21)
[2017-11-13] MEDS: SODIUM CHLORIDE 0.9% FLUSH 10 ML FLUSH IV FLUSH SCH ×2 (09:29→21:00)
[2017-11-13] MEDS: PANTOPRAZOLE SOD 40 MG DELAYED RELEASE TAB PO SCH (09:30)
--- NOTE | 2017-11-13 11:24 | HHI.NPPN ---
Subjective Renal Failure: Acute Interval History Ambulatory in room. Looks well. Renal function improving. (Keara Patel) Review of Systems General Constitutional: Fatigue (Keara Patel) Objective Data Data 11/13/17 11/14/17 19:00 07:00 Output Total 150 ml Balance -150 ml Output Urine Total 150 ml Vital Signs Date Time Temp Pulse Resp B/P (MAP) Pulse Ox O2 Delivery O2 Flow Rate FiO2 11/13/17 08:00 98.0 59 18 132/72 (92) 99 11/13/17 04:30 57 11/13/17 04:00 97.6 59 18 120/69 (86) 99 11/13/17 04:00 97.2 59 18 120/69 (86) 99 11/13/17 00:08 63 11/13/17 00:00 98.3 57 18 117/68 (84) 99 11/12/17 20:00 98.1 60 18 115/66 (82) 99 11/12/17 19:55 65 11/12/17 16:00 97.8 60 18 120/78 (92) 99 11/12/17 15:58 16 11/12/17 15:45 60 11/12/17 12:00 97.6 62 18 134/79 (97) 98 11/12/17 11:50 62 (Keara Patel) -: 11/13/17 0435 11/13/17 0435 Imaging Last Impressions Renal Ultrasound 11/10/17 1618 Signed Impressions: Service Date/Time: Friday, November 10, 2017 16:46 - CONCLUSION: Unremarkable renal ultrasound. Bryn Mccall MD Chest X-Ray 11/10/17 1332 Signed Impressions: Service Date/Time: Friday, November 10, 2017 13:53 - CONCLUSION: Diffuse prominence of interstitial markings likely related to pulmonary venous hypertension or mild edema. Clifford Priest MD Foot MRI 11/10/17 0000 Signed Impressions: Service Date/Time: Friday, November 10, 2017 15:06 - CONCLUSION: Biophysical changes with increased edema involving the first proximal phalanx could be due to postsurgical changes and there is also some degree of partial dislocation of the first interphalangeal joint and osteomyelitis within this digit it is difficult to exclude should be correlated clinically. Bryn Mccall MD Drip Comment heparin (Jorge,Keara B. MANAGER [employer]IMATION) Physical Exam General Appearance: Well Developed, No Acute Distress, Comfortable (Jorge,Keara B. MANAGER [employer]IMATION) Neck Neck Exam: Neck Supple (Jorge,Keara B. MANAGER [employer]IMATION) Pulmonary Resp Exam: Clear Bilaterally (Jorge,Keara B. MANAGER [employer]IMATION) Cardiology CV Exam: Regular, Normal Sinus Rhythm (Jorge,Keara B. MANAGER [employer]IMATION) Gastrointestinal/Abdomen GI Exam: Soft, Non-Tender (Jorge,Keara B. MANAGER [employer]IMATION) Musculoskeletal MS Exam: Normal Tone, Good Strength (Jorge,Keara B. MANAGER [employer]IMATION) Integumentary Skin Exam: Clear, Warm, Dry, Intact (Jorge,Keara B. MANAGER [employer]IMATION) Extremeties Extremities Exam: Pedal Pulses Palpable, Moderate Edema (Jorge,Keara B. MANAGER [employer]IMATION) Neurologic Neuro Exam: Alert, Awake, Oriented, Moving All Extremities (Jorge,Keara B. MANAGER [employer]IMATION) Assessment/Plan Discussed Condition With: Patient Assessment Summary: ANDREI/Acute Renal Failure, Anemia of CKD Problem List: (1) Acute kidney injury ICD Codes: N17.9 - Acute kidney failure, unspecified Plan: Normal renal function at baseline. ANDREI is likely secondary to Vancomycin induced nephrotoxicity. Renal function is improving. We expect continued improvement. Continue Furosemide. He is non oliguric. Replace potassium as needed. Monitor urine output and renal function. Avoid any other nephrotoxic agents. (2) CHF (congestive heart failure) ICD Codes: I50.9 - Heart failure, unspecified Status: Chronic Plan: Monitor fluid status. Continue Lasix. (3) DVT (deep venous thrombosis) ICD Codes: I82.409 - Acute embolism and thrombosis of unspecified deep veins of unspecified lower extremity Status: Acute Plan: Xarelto will have to be held while he is in renal failure. He is on heparin gtt (4) Type II diabetes mellitus with neurological manifestations, uncontrolled ICD Codes: E11.41 - Type II diabetes mellitus with neurological manifestations , uncontrolled Status: Acute Plan: Continue Insulin coverage, maintain blood glucose between 140 and 180 (5) Anemia ICD Codes: D64.9 - Anemia, unspecified Plan: He has iron deficiency. Start venofer. Plan He can be discharged in the next 1-2 days if cleared by other physicians. (Keara Patel) Plan patient was seen and examined. Renal function has improved. I will switch Furosemide to PO. Monitor renal function. (Mathew Cooper MD) Keara Patel Nov 13, 2017 11:24 Mathew Cooper MD Nov 13, 2017 17:56
--- NOTE | 2017-11-13 11:50 | HHI.PR ---
Subjective Remarks The patient was resting comfortably in bed. He said that he has been having bowel movements. He has been ambulating and took a shower. No acute concerns at this time. Objective Vitals Vital Signs Date Time Temp Pulse Resp B/P (MAP) Pulse Ox O2 Delivery O2 Flow Rate FiO2 11/13/17 08:00 98.0 59 18 132/72 (92) 99 11/13/17 04:30 57 11/13/17 04:00 97.6 59 18 120/69 (86) 99 11/13/17 04:00 97.2 59 18 120/69 (86) 99 11/13/17 00:08 63 11/13/17 00:00 98.3 57 18 117/68 (84) 99 11/12/17 20:00 98.1 60 18 115/66 (82) 99 11/12/17 19:55 65 11/12/17 16:00 97.8 60 18 120/78 (92) 99 11/12/17 15:58 16 11/12/17 15:45 60 11/12/17 12:00 97.6 62 18 134/79 (97) 98 11/12/17 11:50 62 I/O 11/12/17 11/12/17 11/12/17 11/13/17 11/13/17 11/13/17 07:00 15:00 23:00 07:00 15:00 23:00 Intake Total 480 ml Output Total 800 ml 150 ml 150 ml Balance -800 ml 330 ml -150 ml Intake Oral 480 ml Output Urine Total 800 ml 150 ml 150 ml # Voids 2 # Bowel Movements 1 Result Diagram: 11/13/17 0435 11/13/17 0435 Imaging Last Impressions Renal Ultrasound 11/10/17 1618 Signed Impressions: Service Date/Time: Friday, November 10, 2017 16:46 - CONCLUSION: Unremarkable renal ultrasound. Bryn Mccall MD Chest X-Ray 11/10/17 1332 Signed Impressions: Service Date/Time: Friday, November 10, 2017 13:53 - CONCLUSION: Diffuse prominence of interstitial markings likely related to pulmonary venous hypertension or mild edema. Clifford Priest MD Foot MRI 11/10/17 0000 Signed Impressions: Service Date/Time: Friday, November 10, 2017 15:06 - CONCLUSION: Biophysical changes with increased edema involving the first proximal phalanx could be due to postsurgical changes and there is also some degree of partial dislocation of the first interphalangeal joint and osteomyelitis within this digit it is difficult to exclude should be correlated clinically. Bryn Mccall MD Objective Remarks GENERAL: This is a well-nourished, well-developed patient, in no apparent distress. SKIN: No rashes, ecchymoses or lesions. Cool and dry. HEAD: Atraumatic. Normocephalic. No temporal or scalp tenderness. EYES:. No scleral icterus. No injection or drainage. ENT: Nose without bleeding, purulent drainage or septal hematoma. Airway patent. NECK: Trachea midline. No JVD or lymphadenopathy. Supple, nontender, no meningeal signs. CARDIOVASCULAR: Regular rate and rhythm without murmurs, gallops, or rubs. RESPIRATORY: CTAB. No wheezing/ rales/ rhonchi. GASTROINTESTINAL: Abdomen soft, nontender. No guarding. + BS. MUSCULOSKELETAL: Extremities without clubbing, cyanosis. Generalized anasarca. Bilateral lower extremity 1-2+ edema. Right foot metatarsal amputation with surgical sutures. Left foot with amputation of all toes. NEUROLOGICAL: Awake and alert. Motor and sensory grossly within normal limits. Normal speech. PSYCH: Mood and affect appropriate. Medications and IVs Current Medications Medications (Trade) Dose Ordered Sig/Orville Route Start Time Stop Time Status Last Admin (NS Flush) 2 ml UNSCH PRN IV FLUSH 11/10/17 16:15 11/12/17 01:08 (NS Flush) 2 ml BID IV FLUSH 11/10/17 21:00 11/12/17 20:15 (Narcan Inj) 0.4 mg UNSCH PRN IV PUSH 11/10/17 16:15 (Morphine Inj) 2 mg Q3H PRN IV PUSH 11/10/17 17:15 11/13/17 09:31 (Norvasc) 5 mg DAILY PO 11/11/17 09:00 11/13/17 09:26 (Aspirin Chew) 81 mg DAILY CHEW 11/11/17 09:00 11/13/17 09:28 (Lipitor) 10 mg DAILY PO 11/11/17 09:00 11/13/17 09:28 (Coreg) 25 mg Q12HR PO 11/10/17 21:00 11/13/17 09:29 (Folate) 1 mg DAILY PO 11/11/17 09:00 11/13/17 09:27 (Protonix) 40 mg DAILY PO 11/11/17 09:00 11/13/17 09:30 (Heparin Inj) 5,000 units UNSCH PRN IV PUSH 11/10/17 23:15 Future hold (Heparin Inj) 2,500 units UNSCH PRN IV PUSH 11/10/17 23:15 Future hold Heparin Sodium/ Dextrose 250 ml @ 9 mls/hr TITRATE PRN IV 11/10/17 17:15 Future hold 11/12/17 11:55 (D50w (Vial) Inj) 50 ml UNSCH PRN IV PUSH 11/11/17 00:45 (Glucagon Inj) 1 mg UNSCH PRN OTHER 11/11/17 00:45 (NovoLOG SUPPLEMENTAL SCALE) 1 ACHS SLIDING SCALE SQ 11/11/17 08:00 11/12/17 20:40 (Zofran Inj) 4 mg Q6HR PRN IV PUSH 11/11/17 04:00 11/12/17 00:41 (Morphine Inj) 2 mg Q3H PRN IM 11/11/17 05:15 11/11/17 08:38 (Miralax) 17 gm DAILY PO 11/11/17 13:00 11/13/17 09:26 (Lasix Inj) 40 mg BID@,18 IV PUSH 11/11/17 18:00 11/13/17 09:27 (Tessalon) 200 mg TID PRN PO 11/12/17 16:30 Iron Sucrose 100 mg/Sodium Chloride 105 ml @ 105 mls/hr Q24H IV 11/13/17 13:00 11/15/17 13:59 A/P Assessment and Plan Acute renal failure Nephrology consult appreciated. Possibly s/t vancomycin toxicity. Renal US without acute pathology. Creatinine improving. - d/c vancomycin. - follow up with nephrology. - continue diuresis with Lasix 40 mg IV BID. - avoid nephrotoxins. - KCl as needed. Acute on chronic CHF EF 30%, was at one point on life vest with EF 16%. Has generalized anasarca. - continue with diuresis as above. - continue cardiac regimen. - telemetry. Recent osteomyelitis of foot With cultures growing MRSA. The patient was on Vanco IV at home per ID. ID consult appreciated. - Vancomycin d/c as above. - follow up with ID. - podiatry consult requested. Chronic anticoagulation on Xarelto The pt denies a history of DVT. He says he was placed on Xarelto because of his CHF. - d/c Xarelto in setting of renal failure. - heparin gtt. DM Glucose well controlled at this time. - Insulin sliding scale. Hypokalemia S/t Lasix. - monitor BMP and replete as needed. Anemia Anemia workup suggestive of iron deficiency. - iron per nephrology. - follow CBC. - Hemoccult. DVT prophylaxis: on heparin drip Discharge Planning Awaiting improvement in renal function Jacob Armenta DO Nov 13, 2017 11:50
[2017-11-13] MEDS: IRON SUCROSE INJ 100 MG in SODIUM CHLORIDE 0.9% INJ 100 ML IV SCH (13:10)
[2017-11-13] MEDS: FUROSEMIDE 40 MG TAB PO SCH (18:00)
--- NOTE | 2017-11-13 19:21 | MB ---
cc: MARGY BLACK DATE OF CONSULTATION 11/13/2017 CHIEF COMPLAINT Post right foot surgery. HISTORY OF PRESENT ILLNESS Mr. Roblero was discharged from the hospital on October 31. He had a toe amputation and a hallux arthroplasty on October [address] Xiao Peoples. He did not follow up in the office as instructed. He was admitted to the hospital due to some shortness of breath, chills, and some CHF exacerbation. The patient denies any pain or complications with the foot at this time. PAST MEDICAL HISTORY Includes: 1. Hypertension. 2. Diabetes mellitus. 3. Congestive heart failure. 4. COPD. 5. History of lower extremity deep venous thrombosis. 6. Gastroesophageal reflux disease. 7. History of perirectal abscess. PAST SURGICAL HISTORY Includes: 1. . 2. Coronary angiogram. 3. Left foot digit amputations. 4. Right foot digit amputations. 5. Elbow surgery. 6. Neck surgery. 7. Back surgery for spinal cyst. 8. As well as pins and rods in the left arm. ALLERGIES ACETAMINOPHEN AND AMOXICILLIN. OXYCODONE. FAMILY HISTORY Noncontributory. SOCIAL HISTORY The patient smokes daily and drinks alcohol. Denies any drug abuse. Vital signs, temperature is 98.1 with a T-max of 98.8, pulse 60, respiratory rate 18, blood pressure 126/73, pulse ox 99% O2 on room air. LABORATORY DATA White count is 8.0 down from 10.3. Hemoglobin 9.4. Hematocrit 29.4, platelets 270. Sodium 134, potassium 3.5, chloride 97, BUN 47. The urine and blood cultures are both negative. IMAGING MRI of the foot was inconclusive for osteomyelitis of the hallux. PHYSICAL EXAMINATION EXTREMITIES: The patient has diminished but palpable pulses of the right DP and PT. Cap fill time is less than 3 seconds. Gross sensation severely diminished. Amputations of the second and third digits. Loose contracture of the hallux. Sutures are intact. Incision sites are well coapted. No erythema. No drainage. No signs of acute infection. ASSESSMENT/PLAN 1. Status post second digit amputation and first digit arthroplasty with Dr. Peoples. - Sutures removed at bedside today. No signs of acute infection. MRI read is likely postsurgical changes. - Would suggest continuing IV antibiotics until November 26 as previously recommended. Vancomycin may need to be changed due to the patient's poor reaction to it. Will defer to infectious disease for antibiotic selection. - Clean dressing applied. No dressing change is needed. - Follow up with Dr. Peoples early next week after discharge. Thank you for this consultation. Margy [place]/KK /5:46 PM /6:42 PM MTDD
[2017-11-14] VITALS (8 sets, daily range): BP systolic 101–122; BP diastolic 60–70; PULSE 57–67; RESP 16–20; TEMP 97.4–98.3; O2SAT 97–98
[2017-11-14] MEDS: MORPHINE SULFATE 2 MG/ML INJ IV PUSH PRN ×8 (01:43→23:18)
[2017-11-14 06:56] LABS: BICARBONATE 26.5 MEQ/L (21.0-32.0); CALCIUM 8.1 MG/DL (8.5-10.1); CREATININE 3.84 MG/DL (0.60-1.30); PHOSPHORUS 4.6 MG/DL (2.5-4.9)
[2017-11-14] MEDS: INSULIN ASPART SUPPLEMENTAL SCALE SQ SCH ×4 (07:51→20:26)
[2017-11-14] MEDS: POLYETHYLENE GLYCOL 17 GM PKG PO SCH (08:19)
[2017-11-14] MEDS: ASPIRIN 81 MG CHEW TAB CHEW SCH (08:19)
[2017-11-14] MEDS: amLODIPine BESYLATE 5 MG TAB PO SCH (08:19)
[2017-11-14] MEDS: PANTOPRAZOLE SOD 40 MG DELAYED RELEASE TAB PO SCH (08:20)
[2017-11-14] MEDS: CARVEDILOL 12.5 MG TAB PO SCH ×2 (08:21→20:26)
[2017-11-14] MEDS: ATORVASTATIN 10 MG TAB PO SCH (08:21)
[2017-11-14] MEDS: FUROSEMIDE 40 MG TAB PO SCH ×2 (08:21→17:14)
[2017-11-14] MEDS: FOLIC ACID 1 MG TAB PO SCH (08:21)
[2017-11-14] MEDS: SODIUM CHLORIDE 0.9% FLUSH 10 ML FLUSH IV FLUSH SCH ×2 (08:22→20:29)
[2017-11-14] MEDS: HEPARIN-D5W 25,000 U/250 ML 250 ML IV PRN (08:35)
--- NOTE | 2017-11-14 11:52 | HHI.PR ---
Subjective Remarks The patient was resting comfortably in bed. He said he was still urinating. He had no acute complaints. He says his stitches were removed yesterday. Discussed with nursing and nephrology. Objective Vitals Vital Signs Date Time Temp Pulse Resp B/P (MAP) Pulse Ox O2 Delivery O2 Flow Rate FiO2 11/14/17 09:14 97.4 59 18 119/66 (83) 98 11/14/17 04:15 97.8 67 19 120/70 (87) 98 11/14/17 00:30 63 11/14/17 00:15 98.0 64 18 115/69 (84) 98 11/13/17 20:50 97.9 60 19 117/67 (84) 97 11/13/17 20:30 61 11/13/17 16:00 98.1 60 18 126/73 (90) 99 11/13/17 12:00 98.6 61 18 127/71 (89) 96 I/O 11/13/17 11/13/17 11/13/17 11/14/17 11/14/17 11/14/17 07:00 15:00 23:00 07:00 15:00 23:00 Intake Total 1280 ml 1000 ml Output Total 650 ml 1150 ml 400 ml Balance -650 ml 130 ml 600 ml Intake Oral 1280 ml 1000 ml Output Urine Total 650 ml 1150 ml 400 ml # Voids 2 # Bowel Movements 0 0 Result Diagram: 11/13/17 0435 11/14/17 0616 Imaging Last Impressions Renal Ultrasound 11/10/17 1618 Signed Impressions: Service Date/Time: Friday, November 10, 2017 16:46 - CONCLUSION: Unremarkable renal ultrasound. Bryn Mccall MD Chest X-Ray 11/10/17 1332 Signed Impressions: Service Date/Time: Friday, November 10, 2017 13:53 - CONCLUSION: Diffuse prominence of interstitial markings likely related to pulmonary venous hypertension or mild edema. Clifford Priest MD Foot MRI 11/10/17 0000 Signed Impressions: Service Date/Time: Friday, November 10, 2017 15:06 - CONCLUSION: Biophysical changes with increased edema involving the first proximal phalanx could be due to postsurgical changes and there is also some degree of partial dislocation of the first interphalangeal joint and osteomyelitis within this digit it is difficult to exclude should be correlated clinically. Bryn Mccall MD Objective Remarks GENERAL: This is a well-nourished, well-developed patient, in no apparent distress. SKIN: No rashes, ecchymoses or lesions. Cool and dry. HEAD: Atraumatic. Normocephalic. No temporal or scalp tenderness. EYES:. No scleral icterus. No injection or drainage. ENT: Nose without bleeding, purulent drainage or septal hematoma. Airway patent. NECK: Trachea midline. No JVD or lymphadenopathy. Supple, nontender, no meningeal signs. CARDIOVASCULAR: Regular rate and rhythm without murmurs, gallops, or rubs. RESPIRATORY: CTAB. No wheezing/ rales/ rhonchi. GASTROINTESTINAL: Abdomen soft, nontender. No guarding. + BS. MUSCULOSKELETAL: Extremities without clubbing, cyanosis. Generalized anasarca. Bilateral lower extremity 1-2+ edema. Right foot metatarsal amputation with surgical sutures. Left foot with amputation of all toes. NEUROLOGICAL: Awake and alert. Motor and sensory grossly within normal limits. Normal speech. PSYCH: Mood and affect appropriate. Medications and IVs Current Medications Medications (Trade) Dose Ordered Sig/Orville Route Start Time Stop Time Status Last Admin (NS Flush) 2 ml UNSCH PRN IV FLUSH 11/10/17 16:15 11/12/17 01:08 (NS Flush) 2 ml BID IV FLUSH 11/10/17 21:00 11/12/17 20:15 (Narcan Inj) 0.4 mg UNSCH PRN IV PUSH 11/10/17 16:15 (Morphine Inj) 2 mg Q3H PRN IV PUSH 11/10/17 17:15 11/14/17 11:25 (Norvasc) 5 mg DAILY PO 11/11/17 09:00 11/14/17 08:19 (Aspirin Chew) 81 mg DAILY CHEW 11/11/17 09:00 11/14/17 08:19 (Lipitor) 10 mg DAILY PO 11/11/17 09:00 11/14/17 08:21 (Coreg) 25 mg Q12HR PO 11/10/17 21:00 11/14/17 08:21 (Folate) 1 mg DAILY PO 11/11/17 09:00 11/14/17 08:21 (Protonix) 40 mg DAILY PO 11/11/17 09:00 11/14/17 08:20 (Heparin Inj) 5,000 units UNSCH PRN IV PUSH 11/10/17 23:15 Future hold (Heparin Inj) 2,500 units UNSCH PRN IV PUSH 11/10/17 23:15 Future hold Heparin Sodium/ Dextrose 250 ml @ 9 mls/hr TITRATE PRN IV 11/10/17 17:15 Future hold 11/14/17 08:35 (D50w (Vial) Inj) 50 ml UNSCH PRN IV PUSH 11/11/17 00:45 (Glucagon Inj) 1 mg UNSCH PRN OTHER 11/11/17 00:45 (NovoLOG SUPPLEMENTAL SCALE) 1 ACHS SLIDING SCALE SQ 11/11/17 08:00 11/13/17 21:34 (Zofran Inj) 4 mg Q6HR PRN IV PUSH 11/11/17 04:00 11/12/17 00:41 (Morphine Inj) 2 mg Q3H PRN IM 11/11/17 05:15 11/11/17 08:38 (Miralax) 17 gm DAILY PO 11/11/17 13:00 11/14/17 08:19 (Tessalon) 200 mg TID PRN PO 11/12/17 16:30 Iron Sucrose 100 mg/Sodium Chloride 105 ml @ 105 mls/hr Q24H IV 11/13/17 13:00 11/15/17 13:59 (Lasix) 40 mg BID@09,18 PO 11/13/17 18:00 11/14/17 08:21 A/P Assessment and Plan Acute renal failure Nephrology consult appreciated. Possibly s/t vancomycin toxicity. Renal US without acute pathology. Creatinine improving. - d/c vancomycin. - follow up with nephrology. - continue diuresis with Lasix 40 mg PO BID. - avoid nephrotoxins. - KCl as needed. Acute on chronic CHF EF 30%, was at one point on life vest with EF 16%. Has generalized anasarca. Improving. - continue with diuresis as above. - continue cardiac regimen. - telemetry. Recent osteomyelitis of foot With cultures growing MRSA. The patient was on Vanco IV at home per ID. ID and podiatry consults appreciated. - Vancomycin d/c as above. Repeat level 11/14. - follow up with ID in regards to further antibiotics. - podiatry follow-up as an outpt. Chronic anticoagulation on Xarelto The pt denies a history of DVT. He says he was placed on Xarelto because of his CHF. Upon review of records he had a PE in 2014 shortly following foot surgery. - d/c Xarelto in setting of renal failure. - d/c heparin gtt as there is no indication for continued anticoagulation in the setting of a provoked PE in 2015. DM Glucose well controlled at this time. - Insulin sliding scale. Hypokalemia S/t Lasix. - monitor BMP and replete as needed. Stable. Anemia Anemia workup suggestive of iron deficiency. - iron per nephrology. - follow CBC. - Hemoccult. DVT prophylaxis: d/c heparin drip, start subQ heparin Discharge Planning Awaiting improvement in renal function, final antibiotic recs from Jacob Pedro DO Nov 14, 2017 11:52
--- NOTE | 2017-11-14 12:15 | HHI.NPPN ---
Subjective Renal Failure: Acute Interval History Doing well. Renal function improved. (Keara Patel) Review of Systems General Constitutional: Fatigue (Keara Patel) Objective Data Data Vital Signs Date Time Temp Pulse Resp B/P (MAP) Pulse Ox O2 Delivery O2 Flow Rate FiO2 11/14/17 09:14 97.4 59 18 119/66 (83) 98 11/14/17 04:15 97.8 67 19 120/70 (87) 98 11/14/17 00:30 63 11/14/17 00:15 98.0 64 18 115/69 (84) 98 11/13/17 20:50 97.9 60 19 117/67 (84) 97 11/13/17 20:30 61 11/13/17 16:00 98.1 60 18 126/73 (90) 99 (Keara Patel) -: 11/13/17 0435 11/14/17 0616 Drip Comment heparin (Keara Patel) Physical Exam General Appearance: Well Developed, No Acute Distress, Comfortable (Keara Patel) Neck Neck Exam: Neck Supple (Keara Patel) Pulmonary Resp Exam: Clear Bilaterally (Keara Patel) Cardiology CV Exam: Regular, Normal Sinus Rhythm (Keara Patel) Gastrointestinal/Abdomen GI Exam: Soft, Non-Tender (Keara Patel) Musculoskeletal MS Exam: Normal Tone, Good Strength (Keara Patel) Integumentary Skin Exam: Clear, Warm, Dry, Intact (Keara Patel) Extremeties Extremities Exam: Pedal Pulses Palpable, Moderate Edema (Keara Patel) Neurologic Neuro Exam: Alert, Awake, Oriented, Moving All Extremities (Keara Patel) Assessment/Plan Discussed Condition With: Patient Assessment Summary: ANDREI/Acute Renal Failure, Anemia of CKD Problem List: (1) Acute kidney injury ICD Codes: N17.9 - Acute kidney failure, unspecified Plan: Normal renal function at baseline. ANDREI is likely secondary to Vancomycin induced nephrotoxicity. Renal function is improving. We expect continued improvement. Continue Furosemide. He is non oliguric. Replace potassium as needed. Monitor urine output and renal function. Avoid any other nephrotoxic agents. (2) CHF (congestive heart failure) ICD Codes: I50.9 - Heart failure, unspecified Status: Chronic Plan: Monitor fluid status. Continue Lasix. (3) DVT (deep venous thrombosis) ICD Codes: I82.409 - Acute embolism and thrombosis of unspecified deep veins of unspecified lower extremity Status: Acute Plan: Xarelto will have to be held while he is in renal failure. He is on heparin gtt (4) Type II diabetes mellitus with neurological manifestations, uncontrolled ICD Codes: E11.41 - Type II diabetes mellitus with neurological manifestations , uncontrolled Status: Acute Plan: Continue Insulin coverage, maintain blood glucose between 140 and 180 (5) Anemia ICD Codes: D64.9 - Anemia, unspecified Plan: He has iron deficiency. Start venofer. Plan We will sign off at this time. (Keara Patel) Plan patient was seen and examined. Agree with above assessment and plan. He can be discharged from renal standpoint. (Mathew Cooper MD) Keara Patel Nov 14, 2017 12:15 Mathew Cooper MD Nov 14, 2017 15:21
[2017-11-14] MEDS: IRON SUCROSE INJ 100 MG in SODIUM CHLORIDE 0.9% INJ 100 ML IV SCH (13:00)
[2017-11-14] MEDS: HEPARIN SODIUM - SQ 10,000 UNITS/ML VIAL SQ SCH (20:26)
[2017-11-15 01:09] VITALS: BP 124/73; PULSE 64; RESP 20; TEMP 97.6; O2SAT 99
[2017-11-15 02:21] VITALS: PULSE 59
[2017-11-15] MEDS: MORPHINE SULFATE 2 MG/ML INJ IV PUSH PRN ×3 (03:43→09:30)
[2017-11-15 06:01] VITALS: BP 101/56; PULSE 59; RESP 20; TEMP 97.6; O2SAT 96
[2017-11-15 07:05] LABS: HEMATOCRIT 29.5 % (39.0-51.0); HEMOGLOBIN 9.5 GM/DL (13.0-17.0); MEAN CELL VOLUME 80.9 FL (80.0-100.0); MEAN CORPUSCULAR HGB CONC 32.1 % (32.0-36.0); MEAN PLATELET VOLUME 8.9 FL (7.0-11.0); PLATELET COUNT 244 TH/MM3 (150-450); RED BLOOD COUNT 3.65 MIL/MM3 (4.50-5.90); RED CELL DISTRIBUTION WIDTH 16.4 % (11.6-17.2); WHITE BLOOD COUNT 6.8 TH/MM3 (4.0-11.0)
[2017-11-15 07:12] LABS: BICARBONATE 27.4 MEQ/L (21.0-32.0); CALCIUM 8.2 MG/DL (8.5-10.1); CREATININE 3.65 MG/DL (0.60-1.30); MAGNESIUM 1.7 MG/DL (1.5-2.5)
[2017-11-15 08:00] VITALS: BP 128/81; PULSE 60; RESP 18; TEMP 97.7; O2SAT 99
[2017-11-15] MEDS: INSULIN ASPART SUPPLEMENTAL SCALE SQ SCH (08:38)
[2017-11-15] MEDS: ASPIRIN 81 MG CHEW TAB CHEW SCH (08:39)
[2017-11-15] MEDS: FOLIC ACID 1 MG TAB PO SCH (08:39)
[2017-11-15] MEDS: PANTOPRAZOLE SOD 40 MG DELAYED RELEASE TAB PO SCH (08:39)
[2017-11-15] MEDS: CARVEDILOL 12.5 MG TAB PO SCH (08:40)
[2017-11-15] MEDS: SODIUM CHLORIDE 0.9% FLUSH 10 ML FLUSH IV FLUSH SCH (08:40)
[2017-11-15] MEDS: amLODIPine BESYLATE 5 MG TAB PO SCH (08:40)
[2017-11-15] MEDS: ATORVASTATIN 10 MG TAB PO SCH (08:40)
[2017-11-15] MEDS: FUROSEMIDE 40 MG TAB PO SCH (08:40)
[2017-11-15] MEDS: HEPARIN SODIUM - SQ 10,000 UNITS/ML VIAL SQ SCH (08:41)
[2017-11-15] MEDS: POLYETHYLENE GLYCOL 17 GM PKG PO SCH (08:42)
[2017-11-15 09:13] VITALS: PULSE 60
[2017-11-15] MEDS ORDERED: FURO20TA PO (10:10)
--- NOTE | 2017-11-15 10:13 | HHI.DCPOC ---
Discharge Care Plan Diagnosis: (1) Toe amputation status (2) Toe osteomyelitis, left (3) Fluid retention (4) Acute renal failure (5) Hypokalemia (6) Pulmonary emboli Goals to Promote Your Health * To prevent worsening of your condition and complications * To maintain your health at the optimal level Directions to Meet Your Goals Take your medications as prescribed Follow your dietary instruction Follow activity as directed Keep your appointments as scheduled Take your immunizations and boosters as scheduled If your symptoms worsen call your PCP, if no PCP go to Urgent Care Center or Emergency Room Smoking is Dangerous to Your Health. Avoid second hand smoke Call the 24-hour hour crisis hotline for domestic abuse at Jacob Armenta DO Nov 15, 2017 10:12
--- NOTE | 2017-11-15 10:19 | HHI.DS ---
Discharge Summary Admission Date Nov 10, 2017 at 16:22 Discharge Date: Nov 15, 2017 Admitting Diagnosis acute renal failure, diabetic foot infection (1) Toe amputation status ICD Code: Z89.429 - Toe amputation status Status: Acute (2) Toe osteomyelitis, left ICD Code: M86.9 - Toe osteomyelitis, left Diagnosis: Principal Status: Acute (3) DM (diabetes mellitus) ICD Code: E11.9 - Diabetes mellitus Status: Chronic (4) Pulmonary emboli ICD Code: I26.99 - Other pulmonary embolism without acute cor pulmonale Status: Chronic (5) Acute renal failure ICD Code: N17.9 - Acute kidney failure, unspecified Diagnosis: Principal Status: Acute (6) Fluid retention ICD Code: R60.9 - Edema, unspecified Diagnosis: Principal Status: Acute Procedures None Brief History - From Admission History from patient, ER physician communication, and review of medical records. Patient was recently discharged from our hospital on October 31, 2017. Medical records from that admission reviewed. Patient stated he was called to stop vanco from hospital staff about 2 days ago after blood test he stopped vancomycin for 2 days then also started have generalized swelling short of breath, though mild able to urinate due to diuretics at home that he takes for chf according to him no fever, but continues to have chills also has not been eating since he left no BM since home no blood from anywhere Denies other symptoms CBC/BMP: 11/15/17 0629 11/15/17 0629 Significant Findings Laboratory Tests Test 11/12/17 15:00 11/12/17 22:20 11/13/17 04:35 11/13/17 10:45 Activated Partial Thromboplast Time 33.0 SEC (24.3-30.1) 31.5 SEC (24.3-30.1) 32.2 SEC (24.3-30.1) 33.3 SEC (24.3-30.1) Red Blood Count 3.61 MIL/MM3 (4.50-5.90) Hemoglobin 9.4 GM/DL (13.0-17.0) Hematocrit 29.4 % (39.0-51.0) Mean Corpuscular Hemoglobin 25.9 PG (27.0-34.0) Mean Corpuscular Hemoglobin Concent 31.8 % (32.0-36.0) Blood Urea Nitrogen 47 MG/DL (7-18) Creatinine 4.05 MG/DL (0.60-1.30) Random Glucose 124 MG/DL (74-106) Calcium Level 8.0 MG/DL (8.5-10.1) Sodium Level 134 MEQ/L (136-145) Chloride Level 97 MEQ/L (98-107) Estimat Glomerular Filtration Rate 16 ML/MIN (>89) Test 11/13/17 16:45 11/13/17 23:22 11/14/17 06:16 11/14/17 12:40 Activated Partial Thromboplast Time 30.3 SEC (24.3-30.1) 31.3 SEC (24.3-30.1) Blood Urea Nitrogen 43 MG/DL (7-18) Creatinine 3.84 MG/DL (0.60-1.30) Random Glucose 154 MG/DL (74-106) Albumin 2.0 GM/DL (3.4-5.0) Calcium Level 8.1 MG/DL (8.5-10.1) Sodium Level 131 MEQ/L (136-145) Chloride Level 95 MEQ/L (98-107) Estimat Glomerular Filtration Rate 17 ML/MIN (>89) Test 11/15/17 06:29 Red Blood Count 3.65 MIL/MM3 (4.50-5.90) Hemoglobin 9.5 GM/DL (13.0-17.0) Hematocrit 29.5 % (39.0-51.0) Mean Corpuscular Hemoglobin 26.0 PG (27.0-34.0) Blood Urea Nitrogen 44 MG/DL (7-18) Creatinine 3.65 MG/DL (0.60-1.30) Random Glucose 180 MG/DL (74-106) Calcium Level 8.2 MG/DL (8.5-10.1) Sodium Level 131 MEQ/L (136-145) Chloride Level 95 MEQ/L (98-107) Estimat Glomerular Filtration Rate 18 ML/MIN (>89) Imaging Last Impressions Renal Ultrasound 11/10/17 1764 Signed Impressions: Service Date/Time: Friday, November 10, 2017 16:46 - CONCLUSION: Unremarkable renal ultrasound. Bryn Mccall MD Chest X-Ray 11/10/17 1332 Signed Impressions: Service Date/Time: Friday, November 10, 2017 13:53 - CONCLUSION: Diffuse prominence of interstitial markings likely related to pulmonary venous hypertension or mild edema. Clifford Priest MD Foot MRI 11/10/17 0000 Signed Impressions: Service Date/Time: Friday, November 10, 2017 15:06 - CONCLUSION: Biophysical changes with increased edema involving the first proximal phalanx could be due to postsurgical changes and there is also some degree of partial dislocation of the first interphalangeal joint and osteomyelitis within this digit it is difficult to exclude should be correlated clinically. Bryn Mccall MD PE at Discharge GENERAL: This is a well-nourished, well-developed patient, in no apparent distress. SKIN: No rashes, ecchymoses or lesions. Cool and dry. HEAD: Atraumatic. Normocephalic. No temporal or scalp tenderness. EYES:. No scleral icterus. No injection or drainage. ENT: Nose without bleeding, purulent drainage or septal hematoma. Airway patent. NECK: Trachea midline. No JVD or lymphadenopathy. Supple, nontender, no meningeal signs. CARDIOVASCULAR: Regular rate and rhythm without murmurs, gallops, or rubs. RESPIRATORY: CTAB. No wheezing/ rales/ rhonchi. GASTROINTESTINAL: Abdomen soft, nontender. No guarding. + BS. MUSCULOSKELETAL: Extremities without clubbing, cyanosis. Generalized anasarca. Bilateral lower extremity 1-2+ edema. Right foot metatarsal amputation with surgical sutures. Left foot with amputation of all toes. NEUROLOGICAL: Awake and alert. Motor and sensory grossly within normal limits. Normal speech. PSYCH: Mood and affect appropriate. Pt update on day of discharge The patient was excited to be discharged. He said that he will follow-up with the doctors as recommended. He said he will continue to take care of his wounds at home. Discussed with nursing. Hospital Course Acute renal failure Secondary to vancomycin toxicity. Vancomycin was discontinued. Lisinopril was also discontinued. Nephrology was consulted. Renal US without acute pathology. He was started on IV Lasix. His creatinine continued to improve. He will have a repeat BMP in 2-3 days. He will follow up with nephrology as an outpatient next week. He will continue Lasix 20 mg by mouth twice a day with potassium supplementation. Acute on chronic CHF The patient presented with generalized anasarca and he was diuresed with IV Lasix. Nephrology was consulted. He was monitored on telemetry. We continued his cardiac regimen. He will follow-up with cardiology as an outpatient. He will continue Lasix 20 mg by mouth twice a day with potassium supplementation. Recent osteomyelitis of foot With cultures growing MRSA. The patient was on Vanco IV at home per ID. Vancomycin was discontinued. ID and podiatry were consulted. The pt will continue wound care at home. The pt will follow up with podiatry as an outpt. No further antibiotics were recommended by ID. Chronic anticoagulation on Xarelto Xarelto was discontinued and a heparin gtt was started in the setting of renal failure. The pt denies a history of DVT. He says he was placed on Xarelto because of his CHF. Upon review of records he had a PE in 2014 shortly following foot surgery. We d/c anticoagulation as there is no indication for continued anticoagulation in the setting of a provoked PE in 2015. He will follow up with his PCP. DM The pt was placed on an insulin sliding scale. He will resume his home regimen upon discharge. Anemia Anemia workup suggestive of iron deficiency. Venofer ordered by nephrology but the pt refused. He will follow up with his PCP. Pt Condition on Discharge: Stable Discharge Disposition: Discharge Home Discharge Time: > 30 minutes Discharge Instructions DIET: Follow Instructions for: Renal Failure Diet Activities you can perform: Weight Bearing as Zeeshan Follow up Referrals: Appointment for Follow Up Appointment for Follow Up Cardiology - 1 Week Nephrology - 3-[address] Cooper PCP Follow-up - 1 Week PCP Follow-up Podiatry - 2-3 Days @ [facility] with Xiao Peoples DPM New Orders: BASIC METABOLIC PROF - 2-3 Days New Medications: Furosemide (Furosemide) 20 Mg Tab 20 MG PO BID for Fluid, #60 TAB 0 Refills Continued Medications: Amlodipine (Norvasc) 5 Mg Tab 5 MG PO DAILY for Blood Pressure Management, #30 TAB Aspirin (Aspirin) 81 Mg Chew 81 MG CHEW DAILY for Blood Clot Prevention, #30 TAB 0 Refills Atorvastatin (Lipitor) 10 Mg Tab 10 MG PO DAILY for Cholesterol Management, #30 TAB Carvedilol (Coreg) 12.5 Mg Tab 25 MG PO Q12HR for Blood Pressure Management, #60 TAB Folic Acid (Folic Acid) 1 Mg Tablet 1 MG PO DAILY for Nutritional Supplement, #30 TAB Insulin Glargine Inj (Lantus Inj) 1,000 Unit/10 Ml Vial 28 UNITS SQ BID for Blood Sugar Management, #5 VIAL 0 Refills Oxycodone (Oxycodone) 5 Mg Tab 10 MG PO Q4H PRN for PAIN SCALE 6 TO 10, #40 TAB Pantoprazole (Pantoprazole) 40 Mg Tab 40 MG PO DAILY for Reflux, #30 TAB 0 Refills Potassium Chloride ER (Klor-Con 10) 10 Meq Tab 10 MEQ PO BID for Electrolyte Replacement, #60 TAB 0 Refills Discontinued Medications: Furosemide (Lasix) 40 Mg Tab 40 MG PO BID for CHF, #60 TAB 0 Refills Lisinopril (Lisinopril) 20 Mg Tab 40 MG PO DAILY for Blood Pressure Management, #60 TAB Rivaroxaban (Xarelto) 20 Mg Tab 20 MG PO DAILY@1600 for Blood Clot Prevention, #30 TAB 0 Refills Jacob Armenta DO Nov 15, 2017 10:19
== END 2017-11-15 11:42 | disposition home or self-care (01) | DRG 683 ==
LOC: NEPE 13:12 → NEDA 16:22 → N05A 17:28
PROVIDERS: ADMIT Hospitalist; ATTEND Hospitalist
DX: N17.9 Acute kidney failure, unspecified (principal); I42.9 Cardiomyopathy, unspecified; I50.9 Heart failure, unspecified; I11.0 Hypertensive heart disease with heart failure; J44.9 Chronic obstructive pulmonary disease, unspecified; F17.210 Nicotine dependence, cigarettes, uncomplicated; D50.9 Iron deficiency anemia, unspecified; I25.10 Atherosclerotic heart disease of native coronary artery without angina pectoris; K21.9 Gastro-esophageal reflux disease without esophagitis; T36.8X5A Adverse effect of other systemic antibiotics, initial encounter; E87.6 Hypokalemia; E78.00 Pure hypercholesterolemia, unspecified; R68.83 Chills (without fever); Z86.711 Personal history of pulmonary embolism; Z86.14 Personal history of Methicillin resistant Staphylococcus aureus infection; Z79.4 Long term (current) use of insulin; Z79.01 Long term (current) use of anticoagulants
CPT/HCPCS: 71010; 73718; 76775; 80048; 80053; 80069; 80202; 81001; 82607; 82728; 82746; 82948; 83540; 83550; 83605; 83735; 85025; 85027; 85652; 85730; 86140; 87040; 87086; 96374; 96375; J1644; J1815; J1940; J2270; J2405

== ENCOUNTER 2017-11-22 17:17 | Inpatient (IN) | payer OTHER ==
[~2017-11-22] VITALS: Ht 172.7 cm; Wt 70.9 kg
[~2017-11-22 17:17] MED LIST changes: -DIPH50CA PO; -DOCU1CAP39 PO; -FURO1TAB60 PO; +FURO20TA PO; +LIDOCAINE HCL 1% PF 5 ML SYRINGE OTHER ONE; -LISI-515 PO; -NICO1DIS8 T-DERMAL; -POLY17S PO; +PROPOFOL 200 MG/20 ML AMP IV ONE; -SENN187 PO; -XARE20TA PO
[2017-11-22 17:20] VITALS: BP 160/90; PULSE 90; RESP 16; TEMP 97.9; O2SAT 99
--- NOTE | 2017-11-22 18:01 | RADRPT ---
EXAM DATE/TIME: 11/22/2017 17:41 [facility] COMPARISON: FOOT RIGHT COMPLETE ([id number]), October 27, 2017, 18:54. INDICATIONS : Right great toe pain MEDICAL HISTORY : Diabetes mellitus type 2. Hypertension SURGICAL HISTORY : Partial bilateral foot/toe amputations ENCOUNTER: Initial ACUITY: 1 day PAIN SCORE: 10/10 LOCATION: Right great toe FINDINGS: Status post amputation of the second and third digits. There is deformity of the great toe with erosive changes on the lateral side of the distal phalanx ernst spicious for an inflammatory process. There appears be either an ulcer or minimal gas adjacent to th e DIP joint.. CONCLUSION: Probable osteomyelitis as above.. Sharad Estrada MD FACR on November 22, 2017 at 17:57 Board Certified Radiologist. This report was verified electronically.
[2017-11-22] MEDS ORDERED: ONDANSETRON HCL 4 MG/2 ML VIAL IV PUSH ONE (18:30)
[2017-11-22] MEDS ORDERED: MORPHINE SULFATE 2 MG/ML INJ IV PUSH ONE (18:30)
[2017-11-22] MEDS ORDERED: SODIUM CHLOR 0.9% 1000 ML INJ 1,000 ML IV SCH (18:30)
[2017-11-22] MEDS ORDERED: FURO1TAB62 PO (18:34)
--- NOTE | 2017-11-22 18:35 | PD ---
HPI Chief Complaint: Skin Problem Time Seen by Provider: 18:02 Travel History International Travel<30 days: No Contact w/Intl Traveler<30days: No Traveled to known affect area: No History of Present Illness HPI The patient is a 52-year-old male who presents to the emergency department at the advice of his medical social consultant for admission and subsequent surgery to remove osteomyelitis of the right great toe. The patient has a history of insulin-dependent diabetes for last 25 years, has had multiple amputations of the left foot as well as the right foot. The patient was recently in the hospital, received IV antibiotics and was discharged home with a PICC line for IV antibiotics. However, the patient states the IV antibiotics put him in a renal failure, he does not want any more antibiotics. The patient was evaluated today was advised to come to the emergency department for admission to the medical team with consultation to podiatry for possible surgery tonight. He does complain of pain over the right great toe. He denies a current fever , chills, or sweats. Symptoms are moderate, there are no current alleviating or exacerbating factors. PFSH Past Medical History Hx Anticoagulant Therapy: Yes Asthma: No Blood Disorders: No Anxiety: No Depression: No Heart Rhythm Problems: Yes Cancer: No Cardiovascular Problems: Yes High Cholesterol: Yes Chest Pain: Yes Congestive Heart Failure: Yes COPD: No Coronary Artery Disease: Yes Diabetes: Yes Patient Takes Glucophage: No Diminished Hearing: No Deep Vein Thrombosis: Yes Endocrine: Yes Gastrointestinal Disorders: Yes GERD: Yes Genitourinary: No Hypertension: Yes Immune Disorder: No Implanted Vascular Access Dvce: Yes Musculoskeletal: No Neurologic: No Psychiatric: Yes (BIPOLAR ) Reproductive: No Respiratory: Yes (CHF) Immunizations Current: Yes Sleep Apnea: No Thyroid Disease: No Ulcer: No Influenza Vaccination: Yes Past Surgical History Body Medical Devices: PLATE IN LEFT ARM WITH SCREWS Thoracic Surgery: Yes (SPINAL SURGERY) Other Surgery: Yes (partial amputation to the left foot, mid metatarsals. Right fourth toe amp) Social History Alcohol Use: No Tobacco Use: Yes (4 cigarettes daily) Substance Use: Yes (marijuana on occasion) Allergies-Medications (Allergen,Severity, Reaction): Coded Allergies: amoxicillin (Verified Allergy, Mild, Hives, 11/22/17) oxycodone (Verified Allergy, Mild, Hives, 11/22/17) Reported Meds & Prescriptions Reported Meds & Active Scripts Active Folic Acid 1 Mg Tablet 1 Mg PO DAILY Norvasc (Amlodipine Besylate) 5 Mg Tab 5 Mg PO DAILY Aspirin 81 Mg Chew 81 Mg CHEW DAILY Lantus Inj (Insulin Glargine) 1,000 Unit/10 Ml Vial 28 Units SQ BID Klor-Con 10 (Potassium Chloride) 10 Meq Tab 10 Meq PO BID Pantoprazole (Pantoprazole Sodium) 40 Mg Tab 40 Mg PO DAILY Coreg (Carvedilol) 12.5 Mg Tab 25 Mg PO Q12HR Lipitor (Atorvastatin Calcium) 10 Mg Tab 10 Mg PO DAILY Reported Lasix (Furosemide) 20 Mg Tab 10 Mg PO BID Review of Systems Except as stated in HPI: all other systems reviewed are Neg General / Constitutional: No: Fever Cardiovascular: No: Chest Pain or Discomfort Respiratory: No: Shortness of Breath Gastrointestinal: No: Nausea, Vomiting, Abdominal Pain Musculoskeletal: Positive: Edema, Pain Neurologic: No: Paresthesia, Sensory Disturbance Physical Exam Narrative GENERAL: Awake, alert, pleasant 52-year-old male who appears his stated age and is in no acute respiratory distress. SKIN: Focused skin assessment warm/dry. Multiple tattoos noted. HEAD: Atraumatic. Normocephalic. EYES: Pupils equal and round. No scleral icterus. No injection or drainage. ENT: No nasal bleeding or discharge. Mucous membranes pink and moist. NECK: Trachea midline. No JVD. CARDIOVASCULAR: Regular rate and rhythm. No murmur appreciated. RESPIRATORY: No accessory muscle use. Clear to auscultation. Breath sounds equal bilaterally. GASTROINTESTINAL: Abdomen soft, non-tender, nondistended. No rebound tenderness. MUSCULOSKELETAL: Partial amputation left foot noted. Multiple amputations of the right foot noted, right great toe, and smaller toe are present. Tenderness over the base of the right great toe, no obvious drainage. Positive dorsalis pedal pulse. NEUROLOGICAL: Awake and alert. No obvious cranial nerve deficits. Motor grossly within normal limits. Normal speech. PSYCHIATRIC: Appropriate mood and affect; insight and judgment normal. Data Data Last Documented VS Vital Signs Date Time Temp Pulse Resp B/P (MAP) Pulse Ox O2 Delivery O2 Flow Rate FiO2 11/22/17 17:20 97.9 90 16 160/90 (113) 99 Orders Orders Foot, Complete ([id number]) (11/22/17 ) Complete Blood Count With Diff (11/22/17 17:22) Basic Metabolic Panel (Bmp) (11/22/17 17:22) C-Reactive Protein (Crp) (11/22/17 17:22) Westergren Sedimentation Rate (11/22/17 17:22) Prothrombin Time / Inr (Pt) (11/22/17 17:22) Act Partial Throm Time (Ptt) (11/22/17 17:22) NPO (11/22/17 18:18) Sodium Chlor 0.9% 1000 Ml Inj (Ns 1000 M (11/22/17 18:30) Morphine Inj (Morphine Inj) (11/22/17 18:30) Ondansetron Inj (Zofran Inj) (11/22/17 18:30) Consult Podiatry (11/22/17 ) Admit Order (Ed Use Only) (11/22/17 18:46) [facility] Medical Decision Making Medical Screen Exam Complete: Yes Emergency Medical Condition: Yes Medical Record Reviewed: Yes Interpretation(s) Last Impressions Foot X-Ray 11/22/17 0000 Signed Impressions: Service Date/Time: Wednesday, November 22, 2017 17:41 - CONCLUSION: Probable osteomyelitis as above.. Sharad Estrada MD FACR CBC reveals normal white count Sedimentation rate elevated at 36 CRP elevated at 0.91 BMP reveals elevated creatinine 2.03 Differential Diagnosis Differential diagnosis includes osteomyelitis, cellulitis, diabetic foot ulcer, infected wound, abscess, failed outpatient therapy. Narrative Course IV was established, labs are drawn and sent, and the patient was placed on cardiac telemetry monitoring and continuous pulse oximetry monitoring. I discussed the patient with his medical social consultant, Dr. Xiao Arzola at [phone] , she plans for surgery later tonight, requests the patient be kept nothing by mouth. The patient has been nothing by mouth since 10 AM. The patient had an IV established and was administered morphine, Zofran, and placed on IV fluids. A call was placed the on-call medical team for admission, I did place the consultation to podiatry. The patient is comfortable with the plan of care and disposition. Procedures Procedure Narrative Nursing staff was unable to place an IV. Therefore, I placed an ultrasound- guided IV in the left upper extremity. The left upper extremity was cleaned with chloroprep, using a linear ultrasound probe, I placed a 1.88 inch 20-gauge ultrasound-guided IV in the left upper extremity. There was good blood return. The IV flowed easily. The patient tolerated the procedure without difficulty and there was no obvious complications. Physician Communication [facility] Communication [facility] I discussed the patient with Dr. Oliver who agrees with admission. Diagnosis Primary Impression: Acute osteomyelitis of toe of right foot Admitting Information Admitting Physician Requests: Admit Scripts Docusate Sodium (Docusate Sodium) 100 Mg Cap 100 MG PO BID Y for CONSTIPATION, #60 CAP 0 Refills Prov: Kd Malone MD 11/24/17 Sulfamethoxazole-Trimethoprim (Bactrim DS) 800-160 Mg Tab 1 TAB PO BID for Infection, #20 TAB 0 Refills Prov: Kd Malone MD 11/24/17 Lactobacillus Acidophilus (Acidophilus/l-Sporogenes) 35 Million Cell-25 Million Cell Tab 1 TAB PO TID for Probiotic, #30 TAB Prov: Kd Malone MD 11/24/17 Hydrocodone/Acetaminophen (Hydrocodone-Acetamin 5-325 mg) 5 Mg-325 Mg Tablet 1 TAB PO Q6H Y for Pain, #60 TAB Prov: Kd Malone MD 11/24/17 Condition: Stable Bakari Lester MD Nov 22, 2017 18:35
[2017-11-22 19:19] LABS: AUTOMATED NEUTROPHIL # 6.8 TH/MM3 (1.8-7.7); BASOPHIL # 0.1 TH/MM3 (0-0.2); BASOPHIL % 1.2 % (0.0-2.0); EOSINOPHIL # 0.3 TH/MM3 (0-0.4); EOSINOPHIL % 2.7 % (0.0-4.0); HEMATOCRIT 33.9 % (39.0-51.0); HEMOGLOBIN 10.9 GM/DL (13.0-17.0); LYMPH % 18.3 % (9.0-44.0); LYMPHOCYTE # 1.7 TH/MM3 (1.0-4.8); MEAN CELL VOLUME 80.5 FL (80.0-100.0); MEAN CORPUSCULAR HEMOGLOBIN 25.8 PG (27.0-34.0); MEAN CORPUSCULAR HGB CONC 32.1 % (32.0-36.0); MEAN PLATELET VOLUME 9.3 FL (7.0-11.0); MONO % 6.2 % (0.0-8.0); MONOCYTE # 0.6 TH/MM3 (0-0.9); NEUT % 71.6 % (16.0-70.0); PLATELET COUNT 287 TH/MM3 (150-450); RED BLOOD COUNT 4.21 MIL/MM3 (4.50-5.90); RED CELL DISTRIBUTION WIDTH 16.1 % (11.6-17.2); WHITE BLOOD COUNT 9.5 TH/MM3 (4.0-11.0)
--- NOTE | 2017-11-22 19:19 | HHI.HP ---
[facility] Admission Diagnosis osteomyelitis right great toe, diabetes Diagnoses: (1) Toe osteomyelitis, right Diagnosis: Principal (2) HTN (hypertension) Diagnosis: Principal (3) DM (diabetes mellitus) Diagnosis: Principal (4) Renal insufficiency Diagnosis: Principal (5) Tobacco abuse Diagnosis: Principal Travel History International Travel<30 Days: No Contact w/Intl Traveler <30 Da: No Traveled to Known Affected Are: No History of Present Illness This is a 52-year-old male with a PMH of Bipolar Disorder, HTN, DM, Hyperlipidemia, CHF (Echo 10/29/16 w/ EF 30-35%), CKD Stage IV, DM, Osteo s/p Partial Left Foot Amputation and Right Toe Amputation who was referred to the ER by his Data Coordinator, Dr. Arzola for admission and surgical intervention secondary to right toe osteomyelitis. Pt reports severe foot/toe pain, 10/10, sharp, constant, non-radiating. H/o previous Osteo w/ long-term IV Abx via PICC however developed renal failure secondary to antibiotic therapy. Reports no antibiotics since 10/31/17. Seen by Data Coordinator today and referred to the ER. Denies fever or chills. On arrival, BP 160/90, HR 90, O2 sat 99% on RA, Afebrile. CBC at baseline. ESR elevated. Creatinine 2.03, previously 3.65 11/15. INR 1.4. Foot X-ray with probable osteomyelitis right toe. Review of Systems Except as stated in HPI: all other systems reviewed are Neg ROS: 14 point review of systems otherwise negative. Past Family Social History Past Medical History PMH: Bipolar Disorder, HTN, DM, Hyperlipidemia, CHF (Echo 10/29/16 w/ EF 30-35% ), CKD Stage IV, DM, Osteo s/p Partial Left Foot Amputation and Right Toe Amputation Past Surgical History PAST SURGICAL HISTORY: Left Arm Surgery, Spinal Surgery, Left Foot Partial Amputation, Right Fourth Toe Amputation Allergies: Coded Allergies: amoxicillin (Verified Allergy, Mild, Hives, 11/22/17) oxycodone (Verified Allergy, Mild, Hives, 11/22/17) Family History PAST FAMILY HISTORY: Reviewed. No h/o DM or CAD Social History PAST SOCIAL HISTORY: Negative for alcohol. Positive for tobacco. Occasional Marijuana. Physical Exam Vital Signs Vital Signs Date Time Temp Pulse Resp B/P (MAP) Pulse Ox O2 Delivery O2 Flow Rate FiO2 11/22/17 17:20 97.9 90 16 160/90 (113) 99 Physical Exam PE: GENERAL: Pleasant middle-aged male in no acute distress, but in obvious pain.. HEENT: PERRLA, EOMI. No scleral icterus or conjunctival pallor. No lid lag or facial droop. CARDIOVASCULAR: Regular rate and rhythm. No obvious murmurs to auscultation. No chest tenderness to palpation. RESPIRATORY: No obvious rhonchi or wheezing. Clear to auscultation. Breath sounds equal bilaterally. GASTROINTESTINAL: Abdomen soft, non-tender, nondistended. BS normal. MUSCULOSKELETAL: Extremities without clubbing, cyanosis, or edema. No obvious deformities. Left foot partial amputation, right foot 4th toe amputation, right great toe w/ significant tenderness to palpation, no drainage. Pulses intact. NEUROLOGICAL: Awake, alert and oriented x4. No focal neurologic deficits. Moving both upper and lower extremities spontaneously. Laboratory Laboratory Tests Test 11/22/17 18:50 Caprini VTE Risk Assessment Caprini VTE Risk Assessment: Mod/High Risk (score >= 2) Caprini Risk Assessment Model Point Value = 1 Point Value = 2 Point Value = 3 Point Value = 5 Age 41-60 Minor surgery BMI > 25 kg/m2 Swollen legs Varicose veins or History of unexplained or recurrent spontaneous Oral contraceptives or hormone replacement Sepsis (< 1 month) Serious lung disease, including pneumonia (< 1 month) Abnormal pulmonary function Acute myocardial infarction Congestive heart failure (< 1 month) History of inflammatory bowel disease Medical patient at bed rest Age 61-74 Arthroscopic surgery Major open surgery (> 45 min) Laparoscopic surgery (> 45 min) Malignancy Confined to bed (> 72 hours) Immobilizing plaster cast Central venous access Age >= 75 History of VTE Family history of VTE Factor V Leiden Prothrombin [id number] Lupus anticoagulant Anticardiolipin antibodies Elevated serum homocysteine Heparin-induced thrombocytopenia Other congenital or acquired thrombophilia Stroke (< 1 month) Elective arthroplasty Hip, pelvis, or leg fracture Acute spinal cord injury (< 1 month) Prophylaxis Regimen Total Risk Factor Score Risk Level Prophylaxis Regimen 0-1 Low Early ambulation 2 Moderate Order ONE of the following: *Sequential Compression Device (SCD) *Heparin 5000 units SQ BID 3-4 Higher Order ONE of the following medications: *Heparin 5000 units SQ TID *Enoxaparin/Lovenox 40 mg SQ daily (WT < 150 kg, CrCl > 30 mL/min) *Enoxaparin/Lovenox 30 mg SQ daily (WT < 150 kg, CrCl > 10-29 mL/min) *Enoxaparin/Lovenox 30 mg SQ BID (WT < 150 kg, CrCl > 30 mL/min) AND/OR *Sequential Compression Device (SCD) 5 or more Highest Order ONE of the following medications: *Heparin 5000 units SQ TID (Preferred with Epidurals) *Enoxaparin/Lovenox 40 mg SQ daily (WT < 150 kg, CrCl > 30 mL/min) *Enoxaparin/Lovenox 30 mg SQ daily (WT < 150 kg, CrCl > 10-29 mL/min) *Enoxaparin/Lovenox 30 mg SQ BID (WT < 150 kg, CrCl > 30 mL/min) AND *Sequential Compression Device (SCD) Assessment and Plan Problem List: (1) Toe osteomyelitis, right ICD Code: M86.9 - Osteomyelitis, unspecified (2) HTN (hypertension) ICD Code: I10 - Essential (primary) hypertension (3) Renal insufficiency ICD Code: N28.9 - Disorder of kidney and ureter, unspecified (4) DM (diabetes mellitus) ICD Code: E11.9 - Diabetes mellitus Status: Chronic (5) Tobacco abuse ICD Code: Z72.0 - Tobacco use Assessment and Plan A/P: 1. Right Toe Osteomyelitis: Acute on Chronic, referred to ER by Data Coordinator, Dr. Arzola. Plan is for surgical intervention, NPO, IVF-caution w/ CHF (Echo w/ EF 30-35%), analgesics/antiemetics as needed. Records from previous admissions for osteomyelitis reviewed extensively by me. No IV Abx per Podiatry recommendation. 2. Renal Insufficiency: H/o Vanc Toxicity w/ subsequent renal failure. Creatinine 2.03, monitor closely. Consult Nephrology as needed for further recommendations. Renal US 11/10/17 unremarkable, images reviewed by me. Repeat labs in am for trend. 3. HTN: Uncontrolled. Likely compounded by c/o pain, optimize pain control. Resume home medications. Monitor BP. Antihypertensives prn for >180 systolic. 4. DM: Sliding scale w/ Accu-Cheks. Hold Lantus for surgical intervention this evening, resume post-op if stable. 5. DVT Prophylaxis: Mechanical contraindication secondary to wound, Pharmacologic contraindication at this time secondary to surgical intervention, start heparin sq post-op 6. Social work for d/c planning as needed. 7. Previous records/labs/imaging reviewed extensively by me. Case discussed at length w/ ER physician. Physician Certification 2 Midnight Certification Type: Admission for Inpatient Services Order for Inpatient Services The services are ordered in accordance with Medicare regulations or non- Medicare payer requirements, as applicable. In the case of services not specified as inpatient-only, they are appropriately provided as inpatient services in accordance with the 2-midnight benchmark. Estimated LOS (days): 2 days is the estimated time the patient will need to remain in the hospital, assuming treatment plan goals are met and no additional complications. Post-Hospital Plan: Not yet determined Maureen Oliver MD Nov 22, 2017 19:19
[2017-11-22 19:25] LABS: INTERNATIONAL NORMALIZED RATIO 1.4 RATIO; PROTHROMBIN TIME - PATIENT 14.1 SEC (9.8-11.6)
[2017-11-22] MEDS ORDERED: DEXTROSE 50% IN WATER 50 ML VIAL(D50) IV PUSH PRN (19:30)
[2017-11-22] MEDS ORDERED: SODIUM CHLORIDE 0.9% FLUSH 10 ML FLUSH IV FLUSH PRN (19:30)
[2017-11-22] MEDS ORDERED: MAGNESIUM HYDROXIDE SUSP 30 ML CUP PO PRN (19:30)
[2017-11-22] MEDS ORDERED: LACTULOSE SYRUP 20 GM/30 ML CUP PO PRN (19:30)
[2017-11-22] MEDS ORDERED: BISACODYL 10 MG SUPP RECTAL PRN (19:30)
[2017-11-22] MEDS ORDERED: SENNOSIDES 8.6 MG TAB PO PRN (19:30)
[2017-11-22] MEDS ORDERED: ACETAMINOPHEN 325 MG TAB PO PRN (19:30)
[2017-11-22] MEDS ORDERED: GLUCAGON 1 MG/ML VIAL OTHER PRN (19:30)
[2017-11-22 19:39] LABS: BICARBONATE 24.2 MEQ/L (21.0-32.0); C-REACTIVE PROTEIN 0.91 MG/DL (0.00-0.30); CALCIUM 8.8 MG/DL (8.5-10.1); CREATININE 2.03 MG/DL (0.60-1.30)
[2017-11-22] MEDS ORDERED: PILL SPLITTER OTHER PRN (19:45)
[2017-11-22] MEDS: SODIUM CHLORIDE 0.9% FLUSH 10 ML FLUSH IV FLUSH SCH (21:00)
[2017-11-22] MEDS: DOCUSATE SODIUM 50 MG/SENNA 8.6 MG TAB PO SCH (21:00)
[2017-11-22] MEDS: FUROSEMIDE 20 MG TAB PO SCH (21:00)
[2017-11-22] MEDS: CARVEDILOL 12.5 MG TAB PO SCH (21:00)
[2017-11-22] MEDS ORDERED: LIDOCAINE HCL 1% 50 ML VIAL ONE (21:10)
[2017-11-22] MEDS ORDERED: BACITRACIN TOP OINT 15 GM TUBE ONE (21:10)
[2017-11-22] MEDS ORDERED: BUPIVACAINE HCL PF 0.5% 30 ML VIAL ONE (21:10)
[2017-11-22] MEDS ORDERED: DO NOT ADM ANY ANTICOAGULANT DRUGS PRN (21:40)
--- NOTE | 2017-11-22 22:02 | HHI.PR ---
Immediate Post Op Note Procedure Date: Nov 22, 2017 Pre Op Diagnosis: (1) Osteomyelitis Right hallux osteomyelitis Post Op Diagnosis: (1) Osteomyelitis Right hallux osteomyelitis Surgeon: Xiao Peoples Payroll Secretary(s): None Procedure: Right foot hallux amputation at metatarsophalangeal joint Findings: None Additional Information: None Complications: None Specimen(s) removed: Right hallux First metatarsal proximal clearing margin right foot Soft tissue right foot Estimated blood loss: 10 cc Anesthesia: LMA Drains: None Patient to: PACU Patient Condition: Xiao Csaarez DPM Nov 22, 2017 22:02
--- NOTE | 2017-11-22 22:20 | PD.OP ---
Operative Report Preoperative Diagnosis: (1) Osteomyelitis Right hallux osteomyelitis Postoperative Diagnosis: (1) Osteomyelitis Right hallux osteomyelitis Procedure: Right hallux amputation at first metatarsophalangeal joint Anesthesia: LMA with a local infiltrative a 11 mix of 0.5% Marcaine plain and 1% lidocaine plain infiltrated about the right foot Surgeon: Xiao Plascencia Credit Professional(s): None Resident Surgeon: None Operation and Findings: Surgeon: Xiao PLASCENCIA Credit Professional: None Preoperative diagnosis: Right hallux osteomyelitis Postoperative diagnosis: Right hallux osteomyelitis Procedure: Right hallux amputation at first metatarsophalangeal joint Anesthesia: LMA with a local infiltrative a 1:1 mix of 0.5% Marcaine plain and 1 % lidocaine plain infiltrated about the right foot Hemostasis: Right ankle tourniquet set at 250 mm per mercury Estimated blood loss: Less than 5 cc Materials: 2-0, 3-0 Prolene Injectables: None Consultations: None Indications for procedure: Patient is a 52-year-old male who presented to our office with right hallux infection not improving on oral antibiotics. Patient states he does not want to be put on oral or IV antibiotics secondary to his kidneys having a problem last time he was on on IV antibiotics. Patient has failed oral antibiotics 10 days. He states he is having increased pain swelling and drainage to right hallux. Reports similar situation to left hallux and states he is very happy and felt much better when left hallux amputated. Patient at this point is tired of attempting to salvage hallux and would like to proceed with left hallux". Since patient will be able to tolerate oral or IV antibiotics and has failed outpatient treatment he was encouraged to proceed to the emergency room for admission for right hallux osteomyelitis. Patient understands all alternatives, risks, benefits, and complications associated with procedure he would like to proceed with right hallux amputation. Description of procedure: The patient was brought back to the operating room and placed operating room table. Gen. anesthesia was then induced and a local block of a one-to-one mix of 0.5% Marcaine plain and 1% lidocaine plain was infiltrated about the right foot in mail block fashion. Ankle tourniquet was applied with cast padding and foam tape. The right foot was then prepped and draped in the usual sterile fashion. Attention was then directed to the right hallux where a medial draining ulcer was noted as well as increased erythema and edema. A racquet-shaped incision with medial long arm was made about the first metatarsophalangeal joint. This incision was deepened through skin to subcutaneous tissue with care to retract all vital neurovascular structures. Incision was then carried down to bone to the metatarsal phalangeal joint. At this time the hallux was disarticulated from the first metatarsal and hallux was sent off the field for pathologic analysis. The indication site was then copiously irrigated with normal saline. A clean rongeur was used to take soft tissue to be sent for culture as well as bone from first metatarsal to the proximal clearing margin to be sent to pathology. Vancomycin powder was applied to the amputation site. Skin was then closed with 2-0 and 3-0 Prolene. Pneumatic ankle tourniquet was deflated. With prompt hyperemic response noted to amputation site. Sterile dressing consisting of xeroform, 4 x 4's, web roll, Vahe was then applied to the right foot. Patient tolerated procedure and anesthesia well. Patient is to remain weightbearing as tolerated in a surgical shoe. He will follow-up with me in office within 1 week of discharge. Xiao Plascencia DPM Nov 22, 2017 22:20
[2017-11-22] MEDS ORDERED: VANCOMYCIN HCL 1000 MG VIAL ONE (23:08)
[2017-11-22] MEDS ORDERED: NALOXONE HCL 0.4 MG/ML AMP IV PUSH PRN (23:45)
[2017-11-22] MEDS: INSULIN ASPART SUPPLEMENTAL SCALE SQ SCH (23:55)
[2017-11-23] VITALS (7 sets, daily range): BP systolic 141–166; BP diastolic 83–97; PULSE 68–87; RESP 16–19; TEMP 95.7–97.9; O2SAT 98–100
[2017-11-23] MEDS ORDERED: *morphine SULFATE 4 MG/ML PERIprocedure ONLY ONE ×2 (00:02→00:18)
--- NOTE | 2017-11-23 00:07 | RADRPT ---
EXAM DATE/TIME: 11/22/2017 23:43 [facility] COMPARISON: FOOT RIGHT COMPLETE ([id number]), November 22, 2017, 17:41. INDICATIONS : Post Op- Right great toe MEDICAL HISTORY : Diabetes mellitus type II. Hypertension SURGICAL HISTORY : Bilateral toe amputations ENCOUNTER: Subsequent ACUITY: 2 days PAIN SCORE: 7/10 LOCATION: Right Foot FINDINGS: Status post amputation involving the first toe. Normal postoperative changes are demonstrated. Chroni c stable deformity involving the fifth toe. Otherwise, no significant change compared to the prior st y. The rest of the bony structures are intact and stable. CONCLUSION: Status post amputation of the first toe. Greg Mazariegos MD on November 23, 2017 at 0:03 Board Certified Radiologist. This report was verified electronically.
[2017-11-23] MEDS: SODIUM CHLOR 0.9% 1000 ML INJ 1,000 ML IV SCH ×3 (00:44→12:48)
[2017-11-23] MEDS: ACETAMINOPHEN/HYDROcodone 325 MG/5 MG TAB PO PRN ×4 (02:20→21:32)
[2017-11-23] MEDS: ONDANSETRON HCL 4 MG/2 ML VIAL IVP PRN ×3 (02:21→15:47)
[2017-11-23] MEDS: MORPHINE SULFATE 2 MG/ML INJ IV PUSH PRN ×4 (05:05→15:47)
[2017-11-23 05:54] LABS: AUTOMATED NEUTROPHIL # 4.8 TH/MM3 (1.8-7.7); BASOPHIL # 0.1 TH/MM3 (0-0.2); BASOPHIL % 1.1 % (0.0-2.0); EOSINOPHIL # 0.2 TH/MM3 (0-0.4); EOSINOPHIL % 3.1 % (0.0-4.0); HEMATOCRIT 35.2 % (39.0-51.0); LYMPH % 27.4 % (9.0-44.0); LYMPHOCYTE # 2.1 TH/MM3 (1.0-4.8); MEAN CELL VOLUME 79.8 FL (80.0-100.0); MEAN CORPUSCULAR HGB CONC 31.4 % (32.0-36.0); MEAN PLATELET VOLUME 9.3 FL (7.0-11.0); MONO % 6.1 % (0.0-8.0); MONOCYTE # 0.5 TH/MM3 (0-0.9); NEUT % 62.3 % (16.0-70.0); PLATELET COUNT 218 TH/MM3 (150-450); RED BLOOD COUNT 4.41 MIL/MM3 (4.50-5.90); RED CELL DISTRIBUTION WIDTH 16.4 % (11.6-17.2); WHITE BLOOD COUNT 7.7 TH/MM3 (4.0-11.0)
[2017-11-23 06:15] LABS: ALBUMIN 2.9 GM/DL (3.4-5.0); AST (GOT) 117 U/L (15-37); BICARBONATE 22.1 MEQ/L (21.0-32.0); BLOOD UREA NITROGEN 24 MG/DL (7-18); CALCIUM 8.5 MG/DL (8.5-10.1); CHLORIDE 103 MEQ/L (98-107); CREATININE 1.73 MG/DL (0.60-1.30); GLOMERULAR FILTRATION RATE 42 ML/MIN (>89); GLUCOSE,RANDOM 87 MG/DL (74-106); SODIUM (NA) 135 MEQ/L (136-145)
[2017-11-23 06:18] LABS: ALKALINE PHOSPHATASE 127 U/L (45-117); ALT (GPT) 60 U/L (12-78); TOTAL BILIRUBIN ADULT 0.7 MG/DL (0.2-1.0); TOTAL PROTEIN 8.1 GM/DL (6.4-8.2)
[2017-11-23] MEDS: INSULIN ASPART SUPPLEMENTAL SCALE SQ SCH ×4 (08:00→21:31)
[2017-11-23] MEDS: CARVEDILOL 12.5 MG TAB PO SCH ×2 (08:18→21:31)
[2017-11-23] MEDS: FOLIC ACID 1 MG TAB PO SCH (08:18)
[2017-11-23] MEDS: ATORVASTATIN 10 MG TAB PO SCH (08:18)
[2017-11-23] MEDS: FUROSEMIDE 20 MG TAB PO SCH ×2 (08:18→21:30)
[2017-11-23] MEDS: PANTOPRAZOLE SOD 40 MG DELAYED RELEASE TAB PO SCH (08:18)
[2017-11-23] MEDS: SODIUM CHLORIDE 0.9% FLUSH 10 ML FLUSH IV FLUSH SCH ×2 (08:19→21:30)
[2017-11-23] MEDS: amLODIPine BESYLATE 5 MG TAB PO SCH (08:19)
[2017-11-23] MEDS: DOCUSATE SODIUM 50 MG/SENNA 8.6 MG TAB PO SCH ×2 (08:19→21:30)
--- NOTE | 2017-11-23 18:32 | HHI.PR ---
Subjective Remarks Mr. Roblero is doing well status post right toe amputation. Pain is under control with current treatments. No complaints from the patient today. Objective Vital Signs Date Time Temp Pulse Resp B/P (MAP) Pulse Ox O2 Delivery O2 Flow Rate FiO2 11/23/17 15:47 96.1 87 19 146/94 (111) 100 11/23/17 12:00 96.7 68 17 143/91 (108) 98 11/23/17 08:00 95.7 69 19 145/83 (103) 98 11/23/17 04:00 97.7 76 16 141/85 (103) 98 11/23/17 01:15 97.9 72 18 166/97 (120) 99 11/23/17 01:10 99 Nasal Cannula 2.00 11/23/17 00:45 71 16 167/90 (115) 99 Nasal Cannula 2 11/23/17 00:29 66 18 153/85 (107) 97 Nasal Cannula 2 11/23/17 00:15 66 14 152/90 (110) 96 Nasal Cannula 2 11/23/17 00:00 69 16 161/98 (119) 98 Nasal Cannula 2 11/22/17 23:45 67 18 154/93 (113) 98 Nasal Cannula 2 11/22/17 23:35 98.5 66 17 154/90 (111) 98 Nasal Cannula 2 I/O 11/22/17 11/22/17 11/22/17 11/23/17 11/23/17 11/23/17 07:00 15:00 23:00 07:00 15:00 23:00 Intake Total 1775 ml 840 ml Output Total 550 ml 1200 ml Balance 1225 ml -360 ml Intake Oral 975 ml 840 ml IV Total 800 ml Output Urine Total 550 ml 1200 ml Estimated Blood Loss 0 ml # Voids 4 Result Diagram: 11/23/17 0515 11/23/17 0515 Objective Remarks GENERAL: NAD, A&Ox3 HEAD: Normocephalic. NECK: Supple, trachea midline. No lymphadenopathy. EYES: No scleral icterus. No injection or drainage. CARDIOVASCULAR: Regular rate and rhythm without murmurs, gallops, or rubs. RESPIRATORY: Breath sounds equal bilaterally. No accessory muscle use. GASTROINTESTINAL: Abdomen soft, non-tender, nondistended. MUSCULOSKELETAL: No cyanosis, or edema. Right foot is status post toe amputation and bandaged. Left foot has a distal amputation history. SKIN: Warm and dry. NEURO: No focal neurological deficitis. A/P Problem List: (1) Amputated toe of left foot ICD Code: Z89.422 - Amputated toe of left foot Status: Acute (2) DM (diabetes mellitus), type 2, uncontrolled w/neurologic complication ICD Code: E11.41 - DM (diabetes mellitus), type 2, uncontrolled w/neurologic complication Status: Acute (3) Chronic foot ulcer ICD Code: L97.509 - Chronic foot ulcer Status: Acute (4) Osteomyelitis ICD Code: M86.9 - Osteomyelitis, unspecified Status: Acute Assessment and Plan 52-year-old male admitted secondary to osteomyelitis with right first toe. Now status post amputation. Right toe ostium mellitus Status post right first toe amputation Doing well Pain control Continue pain treatments Podiatry following Plan for repeat wound assessment tomorrow Chronic renal insufficiency Chronic kidney disease Follow renal function Hypertension Continue baseline treatments Monitor blood pressures Diabetes mellitus type 2 Follow blood sugars Insulin sliding scale Diabetic diet DVT prophylaxis Patient is ambulating frequently Kd Malone MD Nov 23, 2017 18:32
--- NOTE | 2017-11-23 19:00 | HHI.PR ---
Subjective Remarks Patient seen bedside. Reports vomiting and nausea. Denies fevers or chills. States last time he had surgery he was also vomiting and nauseous from the anesthesia. Denies calf pain to right lower extremity. Objective Vital Signs Date Time Temp Pulse Resp B/P (MAP) Pulse Ox O2 Delivery O2 Flow Rate FiO2 11/23/17 15:47 96.1 87 19 146/94 (111) 100 11/23/17 12:00 96.7 68 17 143/91 (108) 98 11/23/17 08:00 95.7 69 19 145/83 (103) 98 11/23/17 04:00 97.7 76 16 141/85 (103) 98 11/23/17 01:15 97.9 72 18 166/97 (120) 99 11/23/17 01:10 99 Nasal Cannula 2.00 11/23/17 00:45 71 16 167/90 (115) 99 Nasal Cannula 2 11/23/17 00:29 66 18 153/85 (107) 97 Nasal Cannula 2 11/23/17 00:15 66 14 152/90 (110) 96 Nasal Cannula 2 11/23/17 00:00 69 16 161/98 (119) 98 Nasal Cannula 2 11/22/17 23:45 67 18 154/93 (113) 98 Nasal Cannula 2 11/22/17 23:35 98.5 66 17 154/90 (111) 98 Nasal Cannula 2 I/O 11/22/17 11/22/17 11/22/17 11/23/17 11/23/17 11/23/17 07:00 15:00 23:00 07:00 15:00 23:00 Intake Total 1775 ml 840 ml Output Total 550 ml 1200 ml Balance 1225 ml -360 ml Intake Oral 975 ml 840 ml IV Total 800 ml Output Urine Total 550 ml 1200 ml Estimated Blood Loss 0 ml # Voids 4 Result Diagram: 11/23/17 0515 11/23/17 0515 Imaging Last Impressions Foot X-Ray 11/22/17 0000 Signed Impressions: Service Date/Time: Wednesday, November 22, 2017 23:43 - CONCLUSION: Status post amputation of the first toe. Greg Mazariegos MD Procedures Status post right hallux amputation at metatarsophalangeal joint Other Results Laboratory Tests Test 1/12/18 18:50 11/23/17 05:15 White Blood Count 9.5 TH/MM3 7.7 TH/MM3 Red Blood Count 4.21 MIL/MM3 4.41 MIL/MM3 Hemoglobin 10.9 GM/DL 11.0 GM/DL Hematocrit 33.9 % 35.2 % Mean Corpuscular Volume 80.5 FL 79.8 FL Mean Corpuscular Hemoglobin 25.8 PG 25.0 PG Mean Corpuscular Hemoglobin Concent 32.1 % 31.4 % Red Cell Distribution Width 16.1 % 16.4 % Platelet Count 287 TH/MM3 218 TH/MM3 Mean Platelet Volume 9.3 FL 9.3 FL Neutrophils (%) (Auto) 71.6 % 62.3 % Lymphocytes (%) (Auto) 18.3 % 27.4 % Monocytes (%) (Auto) 6.2 % 6.1 % Eosinophils (%) (Auto) 2.7 % 3.1 % Basophils (%) (Auto) 1.2 % 1.1 % Neutrophils # (Auto) 6.8 TH/MM3 4.8 TH/MM3 Lymphocytes # (Auto) 1.7 TH/MM3 2.1 TH/MM3 Monocytes # (Auto) 0.6 TH/MM3 0.5 TH/MM3 Eosinophils # (Auto) 0.3 TH/MM3 0.2 TH/MM3 Basophils # (Auto) 0.1 TH/MM3 0.1 TH/MM3 CBC Comment DIFF FINAL DIFF FINAL Differential Comment Erythrocyte Sedimentation Rate 36 mm/hr Prothrombin Time 14.1 SEC Prothromb Time International Ratio 1.4 RATIO Activated Partial Thromboplast Time 28.6 SEC Blood Urea Nitrogen 25 MG/DL 24 MG/DL Creatinine 2.03 MG/DL 1.73 MG/DL Random Glucose 81 MG/DL 87 MG/DL Calcium Level 8.8 MG/DL 8.5 MG/DL Sodium Level 135 MEQ/L 135 MEQ/L Potassium Level 3.6 MEQ/L 3.6 MEQ/L Chloride Level 100 MEQ/L 103 MEQ/L Carbon Dioxide Level 24.2 MEQ/L 22.1 MEQ/L Anion Gap 11 MEQ/L 10 MEQ/L Estimat Glomerular Filtration Rate 35 ML/MIN 42 ML/MIN C-Reactive Protein 0.91 MG/DL Total Protein 8.1 GM/DL Albumin 2.9 GM/DL Alkaline Phosphatase 127 U/L Aspartate Amino Transf (AST/SGOT) 117 U/L Alanine Aminotransferase (ALT/SGPT) 60 U/L Total Bilirubin 0.7 MG/DL Objective Remarks Dressing to right lower extremity intact with no strikethrough noted. Negative pain on palpation to right calf. Negative Homans sign to right calf. No ascending cellulitis noted to ankle or leg. Medications and IVs Current Medications Medications (Trade) Dose Ordered Sig/[place] Route Start Time Stop Time Status Last Admin (D50w (Vial) Inj) 50 ml UNSCH PRN IV PUSH 11/22/17 19:30 (Glucagon Inj) 1 mg UNSCH PRN OTHER 11/22/17 19:30 (NovoLOG SUPPLEMENTAL SCALE) 1 ACHS SLIDING SCALE SQ 11/22/17 21:00 Sodium Chloride 1,000 ml @ 100 mls/hr Q10H IV 11/22/17 20:00 11/23/17 00:00 (NS Flush) 2 ml UNSCH PRN IV FLUSH 11/22/17 19:30 11/23/17 12:04 (NS Flush) 2 ml BID IV FLUSH 11/22/17 21:00 11/23/17 08:19 (Zofran Inj) 4 mg Q6H PRN IVP 11/22/17 19:30 11/23/17 15:47 (Tylenol) 650 mg Q6H PRN PO 11/22/17 19:30 ([place]ron 5-325 Mg) 1 tab Q4H PRN PO 11/22/17 19:30 11/23/17 15:47 (Morphine Inj) 2 mg Q3H PRN IV PUSH 11/22/17 19:30 11/23/17 15:47 (Mariam-Colace) 1 tab BID PO 11/22/17 21:00 11/23/17 08:19 (Milk Of Magnesia Liq) 30 ml Q12H PRN PO 11/22/17 19:30 (Senokot) 17.2 mg Q12H PRN PO 11/22/17 19:30 (Dulcolax Supp) 10 mg DAILY PRN RECTAL 11/22/17 19:30 (Lactulose Liq) 30 ml DAILY PRN PO 11/22/17 19:30 (Norvasc) 5 mg DAILY PO 11/23/17 09:00 11/23/17 08:19 (Lipitor) 10 mg DAILY PO 11/23/17 09:00 11/23/17 08:18 (Coreg) 25 mg Q12HR PO 11/22/17 21:00 11/23/17 08:18 (Folate) 1 mg DAILY PO 11/23/17 09:00 11/23/17 08:18 (Lasix) 10 mg BID PO 11/22/17 21:00 11/23/17 08:18 (Protonix) 40 mg DAILY PO 11/23/17 09:00 11/23/17 08:18 (Pill Splitter) 1 ea UNSCH PRN OTHER 11/22/17 19:45 (Narcan Inj) 0.4 mg UNSCH PRN IV PUSH 11/22/17 23:45 Miscellaneous Information ALL NURSING DEPARTME... UNSCH PRN .XX 11/22/17 21:40 11/23/17 21:39 Assessment and Plan Assessment and Plan 52-year-old male status post 1 day right hallux of dictation at first metatarsal phalangeal joint; date of surgery 11/22/16 Patient exhibited and evaluated with QUESTIONS answered Surgical dressing to remain intact, DPM to change dressing in a.m. Patient to be discharged from podiatry standpoint after tomorrow's a.m. evaluation Will follow cultures No IV antibiotics for patient secondary to being D/C off of of IV abx on last admission Patient may benefit from short-term oral antibiotics 10 days, prior to admission patient was on clindamycin - would appreciate hospitalist recommendation Patient will follow up with surgeon in office within 1 week of discharge Xiao Peoples DPM Nov 23, 2017 19:00
[2017-11-24] MEDS: SODIUM CHLOR 0.9% 1000 ML INJ 1,000 ML IV SCH ×2 (02:00→10:23)
[2017-11-24] MEDS: ACETAMINOPHEN/HYDROcodone 325 MG/5 MG TAB PO PRN ×3 (03:58→13:08)
[2017-11-24 04:10] VITALS: BP 122/68; PULSE 65; RESP 16; TEMP 97; O2SAT 97
[2017-11-24 07:51] VITALS: BP 152/82; PULSE 65; RESP 18; TEMP 96.8; O2SAT 99
[2017-11-24 07:56] LABS: AUTOMATED NEUTROPHIL # 4.4 TH/MM3 (1.8-7.7); BASOPHIL # 0.1 TH/MM3 (0-0.2); BASOPHIL % 0.9 % (0.0-2.0); EOSINOPHIL # 0.3 TH/MM3 (0-0.4); EOSINOPHIL % 5.1 % (0.0-4.0); HEMATOCRIT 33.9 % (39.0-51.0); HEMOGLOBIN 11.1 GM/DL (13.0-17.0); LYMPH % 17.5 % (9.0-44.0); LYMPHOCYTE # 1.1 TH/MM3 (1.0-4.8); MEAN CELL VOLUME 79.6 FL (80.0-100.0); MEAN CORPUSCULAR HGB CONC 32.7 % (32.0-36.0); MEAN PLATELET VOLUME 9.5 FL (7.0-11.0); MONO % 6.5 % (0.0-8.0); MONOCYTE # 0.4 TH/MM3 (0-0.9); PLATELET COUNT 205 TH/MM3 (150-450); RED BLOOD COUNT 4.26 MIL/MM3 (4.50-5.90); RED CELL DISTRIBUTION WIDTH 16.6 % (11.6-17.2); WHITE BLOOD COUNT 6.3 TH/MM3 (4.0-11.0)
[2017-11-24] MEDS: INSULIN ASPART SUPPLEMENTAL SCALE SQ SCH ×2 (08:00→12:00)
[2017-11-24 08:14] LABS: ALBUMIN 2.5 GM/DL (3.4-5.0); AST (GOT) 128 U/L (15-37); BICARBONATE 22.7 MEQ/L (21.0-32.0); BLOOD UREA NITROGEN 23 MG/DL (7-18); CALCIUM 8.4 MG/DL (8.5-10.1); CHLORIDE 102 MEQ/L (98-107); CREATININE 1.64 MG/DL (0.60-1.30); GLOMERULAR FILTRATION RATE 44 ML/MIN (>89); GLUCOSE,RANDOM 87 MG/DL (74-106); SODIUM (NA) 136 MEQ/L (136-145)
[2017-11-24 08:17] LABS: ALKALINE PHOSPHATASE 113 U/L (45-117); ALT (GPT) 86 U/L (12-78); TOTAL BILIRUBIN ADULT 0.9 MG/DL (0.2-1.0); TOTAL PROTEIN 7.1 GM/DL (6.4-8.2)
[2017-11-24] MEDS: DOCUSATE SODIUM 50 MG/SENNA 8.6 MG TAB PO SCH (08:44)
[2017-11-24] MEDS: ATORVASTATIN 10 MG TAB PO SCH (08:44)
[2017-11-24] MEDS: FUROSEMIDE 20 MG TAB PO SCH (08:45)
[2017-11-24] MEDS: SODIUM CHLORIDE 0.9% FLUSH 10 ML FLUSH IV FLUSH SCH (08:45)
[2017-11-24] MEDS: FOLIC ACID 1 MG TAB PO SCH (08:45)
[2017-11-24] MEDS: CARVEDILOL 12.5 MG TAB PO SCH (08:45)
[2017-11-24] MEDS: amLODIPine BESYLATE 5 MG TAB PO SCH (08:45)
[2017-11-24] MEDS: PANTOPRAZOLE SOD 40 MG DELAYED RELEASE TAB PO SCH (08:45)
[2017-11-24] MEDS: LACTOBACILLUS ACIDOPHILUS TAB PO SCH ×2 (10:23→12:03)
[2017-11-24 11:37] VITALS: BP 145/86; PULSE 104; RESP 18; TEMP 96.1; O2SAT 95
[2017-11-24] MEDS ORDERED: CLINDAMYCIN 150 MG CAP PO SCH (12:00)
[2017-11-24] MEDS ORDERED: BACT800T5 PO (12:54)
[2017-11-24] MEDS ORDERED: DOCU100C15 PO (12:54)
[2017-11-24] MEDS ORDERED: LACT PO (12:54)
[2017-11-24] MEDS ORDERED: HYDR-3516 PO (12:54)
--- NOTE | 2017-11-24 14:17 | HHI.DS ---
Discharge Summary Admission Date Nov 22, 2017 at 18:48 Discharge Date: Nov 24, 2017 Admitting Diagnosis osteomyelitis right great toe, diabetes (1) Toe osteomyelitis, right ICD Code: M86.9 - Osteomyelitis, unspecified Diagnosis: Principal (2) HTN (hypertension) ICD Code: I10 - Essential (primary) hypertension Diagnosis: Secondary (3) Renal insufficiency ICD Code: N28.9 - Disorder of kidney and ureter, unspecified Diagnosis: Secondary (4) DM (diabetes mellitus) ICD Code: E11.9 - Diabetes mellitus Diagnosis: Secondary Status: Chronic (5) Tobacco abuse ICD Code: Z72.0 - Tobacco use Diagnosis: Secondary Procedures Right hallux amputation Brief History - From Admission This is a 52-year-old male with a PMH of Bipolar Disorder, HTN, DM, Hyperlipidemia, CHF (Echo 10/29/16 w/ EF 30-35%), CKD Stage IV, DM, Osteo s/p Partial Left Foot Amputation and Right Toe Amputation who was referred to the ER by his Automotive Parts Manager, Dr. Arzola for admission and surgical intervention secondary to right toe osteomyelitis. Pt reports severe foot/toe pain, 10/10, sharp, constant, non-radiating. H/o previous Osteo w/ long-term IV Abx via PICC however developed renal failure secondary to antibiotic therapy. Reports no antibiotics since 10/31/17. Seen by Automotive Parts Manager today and referred to the ER. Denies fever or chills. On arrival, BP 160/90, HR 90, O2 sat 99% on RA, Afebrile. CBC at baseline. ESR elevated. Creatinine 2.03, previously 3.65 11/15. INR 1.4. Foot X-ray with probable osteomyelitis right toe. CBC/BMP: 11/24/17 0651 11/24/17 0651 Significant Findings Laboratory Tests Test 11/22/17 18:50 11/23/17 05:15 11/24/17 06:51 Red Blood Count 4.21 MIL/MM3 (4.50-5.90) 4.41 MIL/MM3 (4.50-5.90) 4.26 MIL/MM3 (4.50-5.90) Hemoglobin 10.9 GM/DL (13.0-17.0) 11.0 GM/DL (13.0-17.0) 11.1 GM/DL (13.0-17.0) Hematocrit 33.9 % (39.0-51.0) 35.2 % (39.0-51.0) 33.9 % (39.0-51.0) Mean Corpuscular Hemoglobin 25.8 PG (27.0-34.0) 25.0 PG (27.0-34.0) 26.0 PG (27.0-34.0) Neutrophils (%) (Auto) 71.6 % (16.0-70.0) Erythrocyte Sedimentation Rate 36 mm/hr (0-20) Prothrombin Time 14.1 SEC (9.8-11.6) Blood Urea Nitrogen 25 MG/DL (7-18) 24 MG/DL (7-18) 23 MG/DL (7-18) Creatinine 2.03 MG/DL (0.60-1.30) 1.73 MG/DL (0.60-1.30) 1.64 MG/DL (0.60-1.30) Sodium Level 135 MEQ/L (136-145) 135 MEQ/L (136-145) Estimat Glomerular Filtration Rate 35 ML/MIN (>89) 42 ML/MIN (>89) 44 ML/MIN (>89) C-Reactive Protein 0.91 MG/DL (0.00-0.30) Mean Corpuscular Volume 79.8 FL (80.0-100.0) 79.6 FL (80.0-100.0) Mean Corpuscular Hemoglobin Concent 31.4 % (32.0-36.0) Albumin 2.9 GM/DL (3.4-5.0) 2.5 GM/DL (3.4-5.0) Alkaline Phosphatase 127 U/L (45-117) Aspartate Amino Transf (AST/SGOT) 117 U/L (15-37) 128 U/L (15-37) Eosinophils (%) (Auto) 5.1 % (0.0-4.0) Calcium Level 8.4 MG/DL (8.5-10.1) Alanine Aminotransferase (ALT/SGPT) 86 U/L (12-78) Hospital Course Mr. Roblero is a 52-year-old male. He was admitted secondary to ostium mellitus of the right hallux. She has a history of previous amputations. Vascular disease is related to diabetes mellitus type 2 and smoking. She had attempted antibiotic treatment for his right first toe ostium mellitus. This treatment failed. He came in the hospital for amputation. Post amputation he' s been doing well and able to ambulate. She's been cleared by podiatry for discharge home today with follow-up in their clinic. He is medically stable for discharge to home. Antibiotic coverage is provided at discharge for 10 days. He is treated with Bactrim. As an outpatient he had renal failure problems with vancomycin, so clindamycin is not selected as an option. He is also given a probiotic, pain medications, and stool softeners. Discharge home today. Pt Condition on Discharge: Stable Discharge Disposition: Discharge Home Discharge Time: <= 30 minutes Discharge Instructions DIET: Follow Instructions for: As Tolerated, No Restrictions Activities you can perform: Regular-No Restrictions Follow up Referrals: PCP Follow-up - 2 Weeks Podiatry - 1 Week New Medications: Docusate Sodium (Docusate Sodium) 100 Mg Cap 100 MG PO BID PRN for CONSTIPATION, #60 CAP 0 Refills Sulfamethoxazole-Trimethoprim (Bactrim DS) 800-160 Mg Tab 1 TAB PO BID for Infection, #20 TAB 0 Refills Hydrocodone/Acetaminophen (Hydrocodone-Acetamin 5-325 mg) 5 Mg-325 Mg Tablet 1 TAB PO Q6H PRN for Pain, #60 TAB Lactobacillus Acidophilus (Acidophilus/l-Sporogenes) 35 Million Cell-25 Million Cell Tab 1 TAB PO TID for Probiotic, #30 TAB Continued Medications: Amlodipine (Norvasc) 5 Mg Tab 5 MG PO DAILY for Blood Pressure Management, #30 TAB Aspirin (Aspirin) 81 Mg Chew 81 MG CHEW DAILY for Blood Clot Prevention, #30 TAB 0 Refills Atorvastatin (Lipitor) 10 Mg Tab 10 MG PO DAILY for Cholesterol Management, #30 TAB Carvedilol (Coreg) 12.5 Mg Tab 25 MG PO Q12HR for Blood Pressure Management, #60 TAB Folic Acid (Folic Acid) 1 Mg Tablet 1 MG PO DAILY for Nutritional Supplement, #30 TAB Furosemide (Lasix) 20 Mg Tab 10 MG PO BID, #30 TAB 0 Refills Insulin Glargine Inj (Lantus Inj) 1,000 Unit/10 Ml Vial 28 UNITS SQ BID for Blood Sugar Management, #5 VIAL 0 Refills Pantoprazole (Pantoprazole) 40 Mg Tab 40 MG PO DAILY for Reflux, #30 TAB 0 Refills Potassium Chloride ER (Klor-Con 10) 10 Meq Tab 10 MEQ PO BID for Electrolyte Replacement, #60 TAB 0 Refills Kd Malone MD Nov 24, 2017 14:17
--- NOTE | 2017-11-24 14:25 | HHI.PR ---
Subjective Remarks Patient seen bedside. Denies vomiting and nausea. Denies fevers or chills. Denies calf pain to right lower extremity. States he is ready to go home. Objective Vital Signs Date Time Temp Pulse Resp B/P (MAP) Pulse Ox O2 Delivery O2 Flow Rate FiO2 11/24/17 11:37 96.1 104 18 145/86 (105) 95 11/24/17 07:51 96.8 65 18 152/82 (105) 99 11/24/17 04:10 97.0 65 16 122/68 (86) 97 11/23/17 23:50 97.2 68 17 148/87 (107) 98 11/23/17 20:30 97.0 75 18 152/90 (110) 98 11/23/17 15:47 96.1 87 19 146/94 (111) 100 I/O 11/23/17 11/23/17 11/23/17 11/24/17 11/24/17 11/24/17 07:00 15:00 23:00 07:00 15:00 23:00 Intake Total 1775 ml 840 ml 480 ml 240 ml Output Total 550 ml 1200 ml 100 ml Balance 1225 ml -360 ml 480 ml 140 ml Intake Oral 975 ml 840 ml 480 ml 240 ml IV Total 800 ml Output Urine Total 550 ml 1200 ml 100 ml Estimated Blood Loss 0 ml # Voids 4 3 2 # Bowel Movements 0 0 Result Diagram: 11/24/17 0651 11/24/17 0651 Imaging Last Impressions Foot X-Ray 11/22/17 0000 Signed Impressions: Service Date/Time: Wednesday, November 22, 2017 23:43 - CONCLUSION: Status post amputation of the first toe. Greg Mazariegos MD Procedures Status post right hallux amputation at metatarsophalangeal joint DOS: 11/22/17 Other Results Laboratory Tests Test 11/22/17 18:50 11/23/17 05:15 11/24/17 06:51 White Blood Count 9.5 TH/MM3 7.7 TH/MM3 6.3 TH/MM3 Red Blood Count 4.21 MIL/MM3 4.41 MIL/MM3 4.26 MIL/MM3 Hemoglobin 10.9 GM/DL 11.0 GM/DL 11.1 GM/DL Hematocrit 33.9 % 35.2 % 33.9 % Mean Corpuscular Volume 80.5 FL 79.8 FL 79.6 FL Mean Corpuscular Hemoglobin 25.8 PG 25.0 PG 26.0 PG Mean Corpuscular Hemoglobin Concent 32.1 % 31.4 % 32.7 % Red Cell Distribution Width 16.1 % 16.4 % 16.6 % Platelet Count 287 TH/MM3 218 TH/MM3 205 TH/MM3 Mean Platelet Volume 9.3 FL 9.3 FL 9.5 FL Neutrophils (%) (Auto) 71.6 % 62.3 % 70.0 % Lymphocytes (%) (Auto) 18.3 % 27.4 % 17.5 % Monocytes (%) (Auto) 6.2 % 6.1 % 6.5 % Eosinophils (%) (Auto) 2.7 % 3.1 % 5.1 % Basophils (%) (Auto) 1.2 % 1.1 % 0.9 % Neutrophils # (Auto) 6.8 TH/MM3 4.8 TH/MM3 4.4 TH/MM3 Lymphocytes # (Auto) 1.7 TH/MM3 2.1 TH/MM3 1.1 TH/MM3 Monocytes # (Auto) 0.6 TH/MM3 0.5 TH/MM3 0.4 TH/MM3 Eosinophils # (Auto) 0.3 TH/MM3 0.2 TH/MM3 0.3 TH/MM3 Basophils # (Auto) 0.1 TH/MM3 0.1 TH/MM3 0.1 TH/MM3 CBC Comment DIFF FINAL DIFF FINAL DIFF FINAL Differential Comment Erythrocyte Sedimentation Rate 36 mm/hr Prothrombin Time 14.1 SEC Prothromb Time International Ratio 1.4 RATIO Activated Partial Thromboplast Time 28.6 SEC Blood Urea Nitrogen 25 MG/DL 24 MG/DL 23 MG/DL Creatinine 2.03 MG/DL 1.73 MG/DL 1.64 MG/DL Random Glucose 81 MG/DL 87 MG/DL 87 MG/DL Calcium Level 8.8 MG/DL 8.5 MG/DL 8.4 MG/DL Sodium Level 135 MEQ/L 135 MEQ/L 136 MEQ/L Potassium Level 3.6 MEQ/L 3.6 MEQ/L 3.6 MEQ/L Chloride Level 100 MEQ/L 103 MEQ/L 102 MEQ/L Carbon Dioxide Level 24.2 MEQ/L 22.1 MEQ/L 22.7 MEQ/L Anion Gap 11 MEQ/L 10 MEQ/L 11 MEQ/L Estimat Glomerular Filtration Rate 35 ML/MIN 42 ML/MIN 44 ML/MIN C-Reactive Protein 0.91 MG/DL Total Protein 8.1 GM/DL 7.1 GM/DL Albumin 2.9 GM/DL 2.5 GM/DL Alkaline Phosphatase 127 U/L 113 U/L Aspartate Amino Transf (AST/SGOT) 117 U/L 128 U/L Alanine Aminotransferase (ALT/SGPT) 60 U/L 86 U/L Total Bilirubin 0.7 MG/DL 0.9 MG/DL Objective Remarks Physical therapy lower extremity exam: Vasc: DP/PT 1/4 bilateral LE. DIRECTOR OF ACCOUNTING to amputation site under 3 secs and WNL. Resolving pitting edema noted to RLE. Neuro: Gross sensation intact. Decreased bilateral pin point sensation. No hyperalgesia noted. Derm: Amputation site to first metatarsal with skin well coapted and sutures intact. Mild sanguinous drainage noted to amputation site. No periwound erythema noted. MSK: Amputations noted to right 1,2,3,4 digits. Medial longitudinal arch present. No tenderness on palpation to right foot. Medications and IVs Current Medications Medications (Trade) Dose Ordered Sig/[place] Route Start Time Stop Time Status Last Admin (D50w (Vial) Inj) 50 ml UNSCH PRN IV PUSH 11/22/17 19:30 (Glucagon Inj) 1 mg UNSCH PRN OTHER 11/22/17 19:30 (NovoLOG SUPPLEMENTAL SCALE) 1 ACHS SLIDING SCALE SQ 11/22/17 21:00 Sodium Chloride 1,000 ml @ 100 mls/hr Q10H IV 11/22/17 20:00 11/23/17 00:00 (NS Flush) 2 ml UNSCH PRN IV FLUSH 11/22/17 19:30 11/23/17 12:04 (NS Flush) 2 ml BID IV FLUSH 11/22/17 21:00 11/24/17 08:45 (Zofran Inj) 4 mg Q6H PRN IVP 11/22/17 19:30 11/23/17 15:47 (Tylenol) 650 mg Q6H PRN PO 11/22/17 19:30 ([place] 5-325 Mg) 1 tab Q4H PRN PO 11/22/17 19:30 11/24/17 13:08 (Morphine Inj) 2 mg Q3H PRN IV PUSH 11/22/17 19:30 11/23/17 15:47 (Mariam-Colace) 1 tab BID PO 11/22/17 21:00 11/24/17 08:44 (Milk Of Magnesia Liq) 30 ml Q12H PRN PO 11/22/17 19:30 11/24/17 12:08 (Senokot) 17.2 mg Q12H PRN PO 11/22/17 19:30 (Dulcolax Supp) 10 mg DAILY PRN RECTAL 11/22/17 19:30 (Lactulose Liq) 30 ml DAILY PRN PO 11/22/17 19:30 (Norvasc) 5 mg DAILY PO 11/23/17 09:00 11/24/17 08:45 (Lipitor) 10 mg DAILY PO 11/23/17 09:00 11/24/17 08:44 (Coreg) 25 mg Q12HR PO 11/22/17 21:00 11/24/17 08:45 (Folate) 1 mg DAILY PO 11/23/17 09:00 11/24/17 08:45 (Lasix) 10 mg BID PO 11/22/17 21:00 11/24/17 08:45 (Protonix) 40 mg DAILY PO 11/23/17 09:00 11/24/17 08:45 (Pill Splitter) 1 ea UNSCH PRN OTHER 11/22/17 19:45 (Narcan Inj) 0.4 mg UNSCH PRN IV PUSH 11/22/17 23:45 (Cleocin) 300 mg Q6HR PO 11/24/17 12:00 11/24/17 12:03 (Lactinex) 1 tab TID PO 11/24/17 09:00 11/24/17 12:03 Assessment and Plan Assessment and Plan 52-year-old male status post 2 days right hallux amputation at first metatarsal phalangeal joint; date of surgery 11/22/16 Patient examined and evaluated with all QUESTIONS answered Surgical dressing changed to right foot Adaptic, 4x4s, tasha, and AARON applied to right foot Patient to keep dressing clean dry and intact. Do not remove dressing. Will follow cultures No IV antibiotics for patient secondary to being D/C off of of IV abx on last admission Patient may benefit from short-term oral antibiotics 10 days, Spoke with Dr. Malone, patient will be discharged on short term oral antibiotics Patient will follow up with surgeon in office within 1 week of discharge Weight bearing as tolerated in a surgical shoe to the RLE. Xiao Peoples DPM Nov 24, 2017 14:25
--- NOTE | 2017-11-24 19:24 | PD.CONS ---
History of Present Illness Service Foot and ankle surgery/podiatry Consult Requested By Emergency department Reason for Consult Right hallux osteomyelitis Primary Care Physician Unknown Diagnoses: History of Present Illness Consult performed 11/22 however for some reason there is an error and is on the computer. 52-year-old male seen in office on 11/22 for right hallux infection. Patient was on oral antibiotics 1 week however he failed oral antibiotic therapy. He was previously taken off of his IV antibiotics secondary to kidney failure. He is status post right hallux proximal phalanx resection as patient was in favor of salvaging right hallux. He presented to the office asking for the toe to be amputated as it is causing him significant pain and the infection is not getting better. He reports nausea vomiting fevers and chills. Patient proceeded immediately from office to emergency department for right hallux amputation and continued infection secondary to osteomyelitis. Review of Systems Constitutional: DENIES: Fever Endocrine: DENIES: Heat/cold intolerance Eyes: DENIES: Blurred vision Respiratory: DENIES: Shortness of breath Cardiovascular: DENIES: Chest pain Gastrointestinal: DENIES: Abdominal pain Musculoskeletal: DENIES: Joint pain Psychiatric: DENIES: Anxiety, Confusion Past Family Social History Allergies: Coded Allergies: amoxicillin (Verified Allergy, Mild, Hives, 11/22/17) oxycodone (Verified Allergy, Mild, Hives, 11/22/17) Past Medical History Neuropathy, diabetes, kidney disease Past Surgical History Digital amputations to bilateral lower extremity Social History Non tobacco user Physical Exam Vital Signs Vital Signs Date Time Temp Pulse Resp B/P (MAP) Pulse Ox O2 Delivery O2 Flow Rate FiO2 11/24/17 11:37 96.1 104 18 145/86 (105) 95 11/24/17 07:51 96.8 65 18 152/82 (105) 99 11/24/17 04:10 97.0 65 16 122/68 (86) 97 11/23/17 23:50 97.2 68 17 148/87 (107) 98 11/23/17 20:30 97.0 75 18 152/90 (110) 98 Physical Exam GENERAL: This is a well-nourished, well-developed patient, in no apparent distress. SKIN: Right hallux ulcer HEAD: Atraumatic. Normocephalic. No temporal or scalp tenderness. EYES: Pupils equal round and reactive. . ENT: Airway patent. RESPIRATORY: Nonlabored breathing MUSCULOSKELETAL: No calf tenderness. Negative Homans sign bilaterally. NEUROLOGICAL: Awake and alert. Normal speech. Lower extremity physical exam: Vascular: Dorsalis pedis 1/4, posterior tibial 1/4. Capillary refill time within normal limits to digits 5 bilateral foot. Edema present right hallux. +1 pitting edema noted to right lower extremity. Neuro: Gross sensation intact to bilateral lower extremity. Pinpoint sensation decreased. No hyperalgesia noted to bilateral lower extremity Dermatology: Medial interphalangeal joint also noted to right hallux. No probe to bone, no drainage, granular bed noticed. Increased edema and erythema to the right hallux. No ascending erythema noted, demarcation at interphalangeal joint. Musculoskeletal: Tender to palpation to the right hallux right second, third, fourth digital amputations. Laboratory Laboratory Tests Test 11/24/17 06:51 White Blood Count 6.3 Red Blood Count 4.26 Hemoglobin 11.1 Hematocrit 33.9 Mean Corpuscular Volume 79.6 Mean Corpuscular Hemoglobin 26.0 Mean Corpuscular Hemoglobin Concent 32.7 Red Cell Distribution Width 16.6 Platelet Count 205 Mean Platelet Volume 9.5 Neutrophils (%) (Auto) 70.0 Lymphocytes (%) (Auto) 17.5 Monocytes (%) (Auto) 6.5 Eosinophils (%) (Auto) 5.1 Basophils (%) (Auto) 0.9 Neutrophils # (Auto) 4.4 Lymphocytes # (Auto) 1.1 Monocytes # (Auto) 0.4 Eosinophils # (Auto) 0.3 Basophils # (Auto) 0.1 CBC Comment DIFF FINAL Differential Comment Blood Urea Nitrogen 23 Creatinine 1.64 Random Glucose 87 Total Protein 7.1 Albumin 2.5 Calcium Level 8.4 Alkaline Phosphatase 113 Aspartate Amino Transf (AST/SGOT) 128 Alanine Aminotransferase (ALT/SGPT) 86 Total Bilirubin 0.9 Sodium Level 136 Potassium Level 3.6 Chloride Level 102 Carbon Dioxide Level 22.7 Anion Gap 11 Estimat Glomerular Filtration Rate 44 Date/Time Source Procedure Growth Status 11/22/17 00:00 Abscess Toe Fungal Smear - Final NO FUNGAL ELEMENTS SEEN. Resulted 11/22/17 00:00 Abscess Toe Fungal Culture Pending Resulted Result Diagram: 11/24/17 0651 11/24/17 0651 Imaging Last Impressions Foot X-Ray 11/22/17 0000 Signed Impressions: Service Date/Time: Wednesday, November 22, 2017 23:43 - CONCLUSION: Status post amputation of the first toe. Greg Mazariegos MD Assessment and Plan Assessment and Plan 52-year-old male status with right hallux osteomyelitis Patient examined and evaluated with all QUESTIONS answered X-rays reviewed No antibiotics at this time Discussed with patient all alternatives, risks, complications, and benefits associated with proceeding with right hallux amputation. Patient understands all risks and complications related to proceed with right hallux amputation. Patient has failed a course of oral antibiotics and he is unable to receive IV antibiotics. We will proceed with right hallux limitation at first metatarsophalangeal joint. Patient has been nothing by mouth To OR today for right hallux amputation at first metatarsophalangeal joint Xiao Peoples DPM Nov 24, 2017 19:24
== END 2017-11-24 14:16 | disposition home or self-care (01) | DRG 617 ==
LOC: NEPE 17:17 → NEDA 18:48 → N06A 11-23 01:07
PROVIDERS: ADMIT Hospitalist; ATTEND Hospitalist
PROC: 0Y6P0Z0 Detachment at Right 1st Toe, Complete, Open Approach (ICD-10-PCS; principal; 2017-11-22 22:47)
DX: E11.69 Type 2 diabetes mellitus with other specified complication (principal); M86.171 Other acute osteomyelitis, right ankle and foot; N18.4 Chronic kidney disease, stage 4 (severe); I50.9 Heart failure, unspecified; I13.0 Hypertensive heart and chronic kidney disease with heart failure and stage 1 through stage 4 chronic kidney disease, or unspecified chronic kidney disease; E11.22 Type 2 diabetes mellitus with diabetic chronic kidney disease; I25.10 Atherosclerotic heart disease of native coronary artery without angina pectoris; K21.9 Gastro-esophageal reflux disease without esophagitis; F17.210 Nicotine dependence, cigarettes, uncomplicated; E78.5 Hyperlipidemia, unspecified; E11.49 Type 2 diabetes mellitus with other diabetic neurological complication; E11.65 Type 2 diabetes mellitus with hyperglycemia; L97.509 Non-pressure chronic ulcer of other part of unspecified foot with unspecified severity; E11.621 Type 2 diabetes mellitus with foot ulcer; F12.90 Cannabis use, unspecified, uncomplicated; F31.9 Bipolar disorder, unspecified; Z79.4 Long term (current) use of insulin; Z88.1 Allergy status to other antibiotic agents; Z88.5 Allergy status to narcotic agent; Z89.421 Acquired absence of other right toe(s); Z89.432 Acquired absence of left foot
CPT/HCPCS: 73630; 80048; 80053; 82948; 85025; 85610; 85652; 85730; 86140; 87015; 87070; 87102; 87116; 87205; 87206; 88305; 88307; 88311; 94150; 99285; J2270; J2405; J3010; J3370; J7030

== ENCOUNTER 2018-01-20 13:22 | Inpatient (IN) | payer OTHER ==
[~2018-01-20] VITALS: Ht 172.7 cm; Wt 86.7 kg
[~2018-01-20 13:22] MED LIST changes: +BACT800T5 PO; +DOCU100C15 PO; +FURO1TAB62 PO; -FURO20TA PO; +HYDR-3516 PO; +LACT PO; -LIDOCAINE HCL 1% PF 5 ML SYRINGE OTHER ONE; -OXYC-392 PO; -PROPOFOL 200 MG/20 ML AMP IV ONE
[2018-01-20 14:02] VITALS: BP 143/92; PULSE 77; RESP 22; TEMP 97.8; O2SAT 100
--- NOTE | 2018-01-20 14:37 | RADRPT ---
EXAM DATE/TIME: 01/20/2018 14:20 [facility] COMPARISON: FOOT RIGHT COMPLETE ([id number]), November 22, 2017, 23:43. INDICATIONS : Patient states right foot pain when weight-bearing. MEDICAL HISTORY : Hypertension. Hypercholesterolemia. Diabetes mellitus type II. SURGICAL HISTORY : Toe Amputation ENCOUNTER: Initial ACUITY: 3 days PAIN SCORE: 1/10 LOCATION: Right Foot FINDINGS: The patient has had previous amputation of the first through fourth digits distal to the metatarsals. Vascular calcifications are noted. There is soft tissue swelling. There is ulceration of the fifth d igit laterally at the MTP joint level. This is new from previous study. Posterior calcaneal spur is n oted. Diffuse soft tissue swelling. CONCLUSION: Soft tissue swelling, postsurgical changes, an ulceration as above. Alexis Villalobos MD on January 20, 2018 at 14:34 Board Certified Radiologist. This report was verified electronically.
--- NOTE | 2018-01-20 14:43 | RADRPT ---
EXAM DATE/TIME: 01/20/2018 14:26 [facility] COMPARISON: CHEST SINGLE AP, November 10, 2017, 13:53. FOOT RIGHT COMPLETE ([id number]), January 20, 2018, 14:20. INDICATIONS : Patient states chest pressure for 3 days. MEDICAL HISTORY : Diabetes mellitus type II. Hypertension Hypercholesterolemia. SURGICAL HISTORY : None. ENCOUNTER: Initial ACUITY: 3 days PAIN SCORE: 4/10 LOCATION: Bilateral chest FINDINGS: The heart appears mildly enlarged. There is diffuse chronic interstitial prominence suggesting COPD. The overall appearance of the chest is similar to the prior dated 11/10/17. The visualized bony structures are grossly intact. CONCLUSION: 1. COPD changes and mild cardiomegaly. Kd Estrada MD on January 20, 2018 at 14:40 Board Certified Radiologist. This report was verified electronically.
[2018-01-20] MEDS ORDERED: MORPHINE SULFATE 4 MG/ML INJ IV PUSH ONE (15:15)
[2018-01-20 15:43] LABS: AUTOMATED NEUTROPHIL # 4.5 TH/MM3 (1.8-7.7); BASOPHIL # 0.1 TH/MM3 (0-0.2); EOSINOPHIL # 0.3 TH/MM3 (0-0.4); EOSINOPHIL % 4.4 % (0.0-4.0); HEMATOCRIT 34.7 % (39.0-51.0); HEMOGLOBIN 10.8 GM/DL (13.0-17.0); LYMPH % 17.6 % (9.0-44.0); LYMPHOCYTE # 1.2 TH/MM3 (1.0-4.8); MEAN CELL VOLUME 74.4 FL (80.0-100.0); MEAN CORPUSCULAR HEMOGLOBIN 23.2 PG (27.0-34.0); MEAN CORPUSCULAR HGB CONC 31.2 % (32.0-36.0); MEAN PLATELET VOLUME 8.5 FL (7.0-11.0); MONO % 8.1 % (0.0-8.0); MONOCYTE # 0.5 TH/MM3 (0-0.9); NEUT % 68.9 % (16.0-70.0); PLATELET COUNT 218 TH/MM3 (150-450); RED BLOOD COUNT 4.66 MIL/MM3 (4.50-5.90); RED CELL DISTRIBUTION WIDTH 20.1 % (11.6-17.2); WHITE BLOOD COUNT 6.6 TH/MM3 (4.0-11.0)
[2018-01-20 15:53] LABS: INTERNATIONAL NORMALIZED RATIO 1.2 RATIO; PROTHROMBIN TIME - PATIENT 12.5 SEC (9.8-11.6)
[2018-01-20 15:55] LABS: BICARBONATE 20.3 MEQ/L (21.0-32.0); C-REACTIVE PROTEIN 0.69 MG/DL (0.00-0.30); CALCIUM 8.2 MG/DL (8.5-10.1); CREATININE 1.11 MG/DL (0.60-1.30); MAGNESIUM 1.8 MG/DL (1.5-2.5)
[2018-01-20 15:57] LABS: TROPONIN I 0.02 NG/ML (0.02-0.05)
--- NOTE | 2018-01-20 16:05 | RADRPT ---
EXAM DATE/TIME: 01/20/2018 15:26 [facility] COMPARISON: No previous studies available for comparison. INDICATIONS : Right leg swelling. MEDICAL HISTORY : Congestive heart failure. Hypercholesterolemia. Hypertension. Glasses. Neuropathy. Coronary artery disease. Anticoagulant therapy. Deep vein thrombosis. Gastroesophageal reflux disease. Arthritis. Re nal disease. Diabetes. Depression. Anxiety. MRSA. SURGICAL HISTORY : Left arm surgery. Left foot amputation. Right toe amputation. ENCOUNTER: Subsequent ACUITY: 1 day PAIN SCORE: 7/10 LOCATION: Right leg. TECHNIQUE: Venous ultrasound of the leg was performed from the inguinal ligament to the proximal calf. Real-funmilayo e, color Doppler and spectral tracing, compression and augmentation techniques were used. FINDINGS: There is normal compressibility of the deep venous system from the inguinal region to the proximal ca lf. No echogenic clot is seen in the lumen of the common femoral, femoral, popliteal, and posterior tibial veins. There is a normal response of the venous system to proximal and distal augmentation an d respiration. CONCLUSION: 1. No evidence for DVT. 2. Prominent right inguinal lymph nodes are present. Alexis Villalobos MD on January 20, 2018 at 16:02 Board Certified Radiologist. This report was verified electronically.
--- NOTE | 2018-01-20 16:32 | PD ---
HPI Chief Complaint: Respiratory Symptoms Time Seen by Provider: 14:54 Travel History International Travel<30 days: No Contact w/Intl Traveler<30days: No Traveled to known affect area: No History of Present Illness HPI 53-year-old male with PMH of DM, heart failure, on transplant list, currently wearing a Life Vest presents to the ED for evaluation of 3 day history of heavy feeling in his chest, shortness of breath. Patient states that he feels as if he is fluid overloaded. He endorses chronic nonproductive cough. He denies chest pain, palpitations, abdominal pain, nausea, vomiting, dysuria. Also complains of worsening wound and 9/10, dull and occasionally shooting pain of the lateral aspect of the right foot. Pain is worsened by touch. No alleviating factors reported. He denies fever, chills. He endorses chronic neuropathy in the foot. He states that the pain in the area alerted him that something was wrong. He is followed by Dr. Arzola, podiatry. 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 PFSH Past Medical History Hx Anticoagulant Therapy: Yes Arthritis: Yes Asthma: No Autoimmune Disease: No Blood Disorders: No Anxiety: Yes Depression: Yes Heart Rhythm Problems: Yes Cancer: No Cardiovascular Problems: Yes High Cholesterol: Yes Chemotherapy: No Chest Pain: No Congestive Heart Failure: Yes COPD: No Cerebrovascular Accident: No Coronary Artery Disease: Yes Diabetes: Yes Diminished Hearing: No Deep Vein Thrombosis: Yes Endocrine: Yes Gastrointestinal Disorders: Yes GERD: Yes Genitourinary: Yes Hiatal Hernia: No Hypertension: Yes Immune Disorder: No Implanted Vascular Access Dvce: Yes Kidney Stones: No Musculoskeletal: Yes Neurologic: Yes Psychiatric: Yes (BIPOLAR ) Reproductive: No Respiratory: No Immunizations Current: Yes Migraines: No Radiation Therapy: No Renal Failure: No Seizures: No Sickle Cell Disease: No Sleep Apnea: No Thyroid Disease: No Ulcer: No Past Surgical History Abdominal Surgery: No AICD: No Arteriovenous Shunt: No Body Medical Devices: LEFT ARM ORIF Cardiac Surgery: No Ear Surgery: No Endocrine Surgery: No Eye Surgery: No Genitourinary Surgery: No Gynecologic Surgery: No Insulin Pump: No Joint Replacement: No Oral Surgery: No Pacemaker: No Thoracic Surgery: Yes (UNKNOWN BACK SX) Other Surgery: Yes (partial amputation to the left foot, mid metatarsals. Right fourth toe amp) Social History Alcohol Use: No Tobacco Use: Yes (4 cigarettes daily) Substance Use: Yes (MARIJUANA) Allergies-Medications (Allergen,Severity, Reaction): Coded Allergies: amoxicillin (Verified Allergy, Mild, Hives, 01/20/18) oxycodone (Verified Allergy, Mild, Hives, 01/20/18) Reported Meds & Prescriptions Reported Meds & Active Scripts Active Docusate Sodium 100 Mg Cap 100 Mg PO BID PRN Bactrim DS (Sulfamethoxazole-Trimethoprim) 800-160 Mg Tab 1 Tab PO BID Acidophilus/l-Sporogenes (Lactobacillus Acidophilus) 35 Million Cell-25 Million Cell Tab 1 Tab PO TID Hydrocodone-Acetamin 5-325 mg (Hydrocodone/Acetaminophen) 5 Mg-325 Mg Tablet 1 Tab PO Q6H PRN Folic Acid 1 Mg Tablet 1 Mg PO DAILY Norvasc (Amlodipine Besylate) 5 Mg Tab 5 Mg PO DAILY Aspirin 81 Mg Chew 81 Mg CHEW DAILY Lantus Inj (Insulin Glargine) 1,000 Unit/10 Ml Vial 28 Units SQ BID Klor-Con 10 (Potassium Chloride) 10 Meq Tab 10 Meq PO BID Pantoprazole (Pantoprazole Sodium) 40 Mg Tab 40 Mg PO DAILY Coreg (Carvedilol) 12.5 Mg Tab 25 Mg PO Q12HR Lipitor (Atorvastatin Calcium) 10 Mg Tab 10 Mg PO DAILY Reported Lasix (Furosemide) 20 Mg Tab 10 Mg PO BID Review of Systems Except as stated in HPI: all other systems reviewed are Neg Physical Exam Narrative GENERAL: Well-nourished, well-developed male in no acute distress. SKIN: Focused skin assessment warm/dry. HEAD: Normocephalic. EYES: No scleral icterus. No injection or drainage. NECK: Supple, trachea midline. No JVD or lymphadenopathy. CARDIOVASCULAR: Regular rate and rhythm without murmurs, gallops, or rubs. RESPIRATORY: Breath sounds clear and equal bilaterally. No accessory muscle use. GASTROINTESTINAL: Abdomen soft, non-tender, nondistended. Active bowel sounds. MUSCULOSKELETAL: No cyanosis, or edema. FOCUSED RIGHT LOWER EXTREMITY EXAM: 2+ DP pulse. Amputation of digits 1 through 4, well-healed without signs of infection. ~4cm shallow wound on the lateral aspect of the foot with a small amount appeared purulent drainage. The foot is warm, tender. There is 2+ edema to the knee. Homans sign positive. BACK: Nontender without obvious deformity. No CVA tenderness. Data Data Last Documented VS Vital Signs Date Time Temp Pulse Resp B/P (MAP) Pulse Ox O2 Delivery O2 Flow Rate FiO2 01/20/18 17:03 78 15 127/88 (101) 98 Room Air 01/20/18 14:02 97.8 Orders Orders Electrocardiogram (01/20/18 14:04) Basic Metabolic Panel (Bmp) (01/20/18 14:04) B-Type Natriuretic Peptide (01/20/18 14:04) Ckmb (Isoenzyme) Profile (01/20/18 14:04) Complete Blood Count With Diff (01/20/18 14:04) Magnesium (Mg) (01/20/18 14:04) Prothrombin Time / Inr (Pt) (01/20/18 14:04) Act Partial Throm Time (Ptt) (01/20/18 14:04) Troponin I (01/20/18 14:04) Chest, Pa & Lat (01/20/18 14:04) C-Reactive Protein (Crp) (01/20/18 14:04) Foot, Complete ([id number]) (01/20/18 ) Blood Culture (01/20/18 15:11) Wound Culture And Gram Stain (01/20/18 15:11) Iv Access Insert/Monitor (01/20/18 15:11) Ecg Monitoring (01/20/18 15:11) Oximetry (01/20/18 15:11) Morphine Inj (Morphine Inj) (01/20/18 15:15) Us Leg Venous Doppler (01/20/18 15:11) Westergren Sedimentation Rate (01/20/18 15:19) Furosemide Inj (Lasix Inj) (01/20/18 17:00) Vancomycin Inj (Vancomycin Inj) (01/20/18 17:15) Consult Podiatry (01/20/18 ) (Hub Use Only)Inp Phy Cons/Ref (01/20/18 ) Mri Lower Leg W/Wo Contrast (01/20/18 ) Admit Order (Ed Use Only) (01/20/18 17:44) Labs Laboratory Tests Test 01/20/18 15:00 White Blood Count 6.6 TH/MM3 Red Blood Count 4.66 MIL/MM3 Hemoglobin 10.8 GM/DL Hematocrit 34.7 % Mean Corpuscular Volume 74.4 FL Mean Corpuscular Hemoglobin 23.2 PG Mean Corpuscular Hemoglobin Concent 31.2 % Red Cell Distribution Width 20.1 % Platelet Count 218 TH/MM3 Mean Platelet Volume 8.5 FL Neutrophils (%) (Auto) 68.9 % Lymphocytes (%) (Auto) 17.6 % Monocytes (%) (Auto) 8.1 % Eosinophils (%) (Auto) 4.4 % Basophils (%) (Auto) 1.0 % Neutrophils # (Auto) 4.5 TH/MM3 Lymphocytes # (Auto) 1.2 TH/MM3 Monocytes # (Auto) 0.5 TH/MM3 Eosinophils # (Auto) 0.3 TH/MM3 Basophils # (Auto) 0.1 TH/MM3 CBC Comment DIFF FINAL Differential Comment Erythrocyte Sedimentation Rate 28 mm/hr Prothrombin Time 12.5 SEC Prothromb Time International Ratio 1.2 RATIO Activated Partial Thromboplast Time 29.6 SEC Blood Urea Nitrogen 12 MG/DL Creatinine 1.11 MG/DL Random Glucose 222 MG/DL Calcium Level 8.2 MG/DL Magnesium Level 1.8 MG/DL Sodium Level 133 MEQ/L Potassium Level 4.3 MEQ/L Chloride Level 104 MEQ/L Carbon Dioxide Level 20.3 MEQ/L Anion Gap 9 MEQ/L Estimat Glomerular Filtration Rate 69 ML/MIN Total Creatine Kinase 85 U/L Troponin I 0.02 NG/ML C-Reactive Protein 0.69 MG/DL B-Type Natriuretic Peptide 2776 PG/ML MDM Medical Decision Making Medical Screen Exam Complete: Yes Emergency Medical Condition: Yes Differential Diagnosis CHF exacerbation versus cellulitis versus osteomyelitis versus renal insufficiency versus other Narrative Course 53-year-old male with PMH of DM, heart failure, on transplant list, currently wearing a Life Vest presents to the ED for evaluation of 3 day history of heavy feeling in his chest, shortness of breath. He endorses chronic nonproductive cough. Also complains of worsening wound and 9/10, dull and occasionally shooting pain of the lateral aspect of the right foot. He denies fever, chills. He endorses chronic neuropathy in the foot. He is followed by Dr. Arzola, podiatry. 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 Afebrile, pulse 77, BP 143/72, respiratory rate 22, 100% on room air on presentation. On exam this is a male in no acute distress. He is a 4 cm coin-shaped wound in the lateral aspect of the right foot with cellulitic changes to the knee. Homans sign positive. Chest is CTAB. IV was established. Patient was administered 4 mg morphine. EKG rate 77, sinus rhythm. RI interval 154, QRS 105, QTC 439. No acute ST changes. Reviewed by Dr. Jimenez. CXR: COPD changes and mild cardiomegaly. Cardiac enzymes: Negative 1. BNP 2776 CBC: WBC 6.6. Hemoglobin 10.8. INR: 1.2. CMP: BUN 12, creatinine 1.1. Glucose 222. CRP: 0.69. ESR: 28 ULTRASOUND RIGHT LOWER EXTREMITY: No evidence of DVT. Prominent right inguinal lymph nodes present. I discussed the results of the workup with the patient and recommended admission. He is agreeable to this plan. Patient was administered 40 mg of Lasix IV. I reviewed the patient's record, last wound cultures grew MRSA, susceptible to vancomycin. Vancomycin was initiated. I spoke with Dr. Thomas- control engineer for - who recommends MRI of the RLE with and without contrast. This was ordered. Podiatry consult placed. Given the patient's heart failure, LifeVest dependency, LE extremity cellulitis with likely osteomyelitis, he will require inpatient treatment. I spoke with Dr. Armenta who agrees to accept the patient to the medicine service. Please see medicine and podiatry notes for disposition. Martine Ramirez Jan 20, 2018 16:32
[2018-01-20] MEDS ORDERED: FUROSEMIDE 40 MG/4 ML VIAL IV PUSH ONE (17:00)
[2018-01-20 17:03] VITALS: BP 127/88; PULSE 78; RESP 15; O2SAT 98
[2018-01-20] MEDS ORDERED: VANCOMYCIN INJ 1,000 MG in SODIUM CHLOR 0.9% 250 ML INJ 250 ML IV ONE (17:15)
[2018-01-20] MEDS ORDERED: ONDANSETRON HCL 4 MG/2 ML VIAL IV PUSH ONE (18:00)
[2018-01-20] MEDS ORDERED: NALOXONE HCL 0.4 MG/ML AMP IV PUSH PRN (19:00)
[2018-01-20] MEDS ORDERED: ACETAMINOPHEN 325 MG TAB PO PRN ×2 (19:00)
[2018-01-20] MEDS ORDERED: ENOXAPARIN SODIUM 40 MG/0.4 ML SYRINGE SQ SCH (19:00)
[2018-01-20 19:28] VITALS: BP 124/80; PULSE 81; RESP 15; O2SAT 99
[2018-01-20 20:00] VITALS: O2SAT 98
--- NOTE | 2018-01-20 20:14 | HHI.HP ---
[facility] No Primary Care Physician Admission Diagnosis CHF exacerbation, cellulitis right lower extremity Diagnoses: Chief Complaint: sob, fluid overload Travel History International Travel<30 Days: No Contact w/Intl Traveler <30 Da: No Traveled to Known Affected Are: No History of Present Illness 53 y/o male with a history of DM, CAD, diabetic neuropathy, CHF on heart transplant list, multiple toe amputations presented to the ED with complaints of shortness of breath and fluid overload. Patient states over the last 3 days he's had a 15 pound weight gain and was feeling very short of breath. He states that shortness of breath was worse with exertion and unable to lay flat. He is also complaining of a right outer foot ulcer pain, 10/10, throbbing, constant, with radiation up to the calf, with associated fevers and chills, worse with movement and better with morphine. Denies any nausea or vomiting. Last Saturday he was seen by his employment advisor for the ulcer that was in size at this time. He called his employment advisor today and she encouraged him to come to the ED. He does have his Life vest in place. Was placed at [facility] recently, but has had one in place for the last 3 years, placed originally in [place]. 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 He states every time he goes to follow-up with one He returns to the hospital. Review of Systems Except as stated in HPI: all other systems reviewed are Neg Past Family Social History Past Medical History DM CAD CHF Past Surgical History Multiple toe amputations Left forearm surgery Spinal surgery Reported Medications Reported Meds & Active Scripts Active Docusate Sodium 100 Mg Cap 100 Mg PO BID PRN Bactrim DS (Sulfamethoxazole-Trimethoprim) 800-160 Mg Tab 1 Tab PO BID Acidophilus/l-Sporogenes (Lactobacillus Acidophilus) 35 Million Cell-25 Million Cell Tab 1 Tab PO TID Hydrocodone-Acetamin 5-325 mg (Hydrocodone/Acetaminophen) 5 Mg-325 Mg Tablet 1 Tab PO Q6H PRN Folic Acid 1 Mg Tablet 1 Mg PO DAILY Norvasc (Amlodipine Besylate) 5 Mg Tab 5 Mg PO DAILY Aspirin 81 Mg Chew 81 Mg CHEW DAILY Lantus Inj (Insulin Glargine) 1,000 Unit/10 Ml Vial 28 Units SQ BID Klor-Con 10 (Potassium Chloride) 10 Meq Tab 10 Meq PO BID Pantoprazole (Pantoprazole Sodium) 40 Mg Tab 40 Mg PO DAILY Coreg (Carvedilol) 12.5 Mg Tab 25 Mg PO Q12HR Lipitor (Atorvastatin Calcium) 10 Mg Tab 10 Mg PO DAILY Reported Lasix (Furosemide) 20 Mg Tab 10 Mg PO BID Allergies: Coded Allergies: amoxicillin (Verified Allergy, Mild, Hives, 01/20/18) oxycodone (Verified Allergy, Mild, Hives, 01/20/18) Active Ordered Medications Current Medications Medications (Trade) Dose Ordered Sig/[place]ville Route Start Time Stop Time Status Last Admin (NS Flush) 2 ml UNSCH PRN IV FLUSH 01/20/18 19:00 (NS Flush) 2 ml BID IV FLUSH 01/20/18 21:00 (Tylenol) 650 mg Q4H PRN PO 01/20/18 19:00 (Zofran Inj) 4 mg Q6H PRN IVP 01/20/18 19:00 (Lovenox Inj) 40 mg Q24H SQ 01/20/18 19:00 01/20/18 19:32 (Tylenol) 650 mg Q6H PRN PO 01/20/18 19:00 (Narcan Inj) 0.4 mg UNSCH PRN IV PUSH 01/20/18 19:00 (Mariam-Colace) 1 tab BID PO 01/20/18 21:00 (NovoLOG SUPPLEMENTAL SCALE) 1 ACHS SLIDING SCALE SQ 01/20/18 21:00 Family History Mom: CAD, CVA Grandma: [place] at a young age Social History Tobacco use: Quit Sep 2017, prior started in 1976 Alcohol use: Denies Illicit use: Marijuana occasionally Physical Exam Vital Signs Vital Signs Date Time Temp Pulse Resp B/P (MAP) Pulse Ox O2 Delivery O2 Flow Rate FiO2 01/20/18 19:29 81 99 Room Air 01/20/18 19:28 81 15 124/80 (95) 99 Room Air 01/20/18 17:03 78 15 127/88 (101) 98 Room Air 01/20/18 15:10 83 20 97 Room Air 01/20/18 14:02 97.8 77 22 143/92 (109) 100 Physical Exam GENERAL: This is a well-nourished, well-developed patient, in no apparent distress. SKIN: Right outer foot ulcer necrotic, no drainage HEAD: Atraumatic. Normocephalic. EYES: Pupils equal round and reactive. ENT: Nose without bleeding, purulent drainage or septal hematoma.Airway patent. NECK: Trachea midline. No JVD or lymphadenopathy. CARDIOVASCULAR: Regular rate and rhythm without murmurs, gallops, or rubs. RESPIRATORY: Diminished breath sounds in lower bases. No wheezes, rales, or rhonchi. GASTROINTESTINAL: Abdomen soft, non-tender, nondistended. MUSCULOSKELETAL: Right foot pain, +2 pitting edema , No calf tenderness. Negative Homans sign bilaterally. NEUROLOGICAL: Awake and alert. Motor and sensory grossly within normal limits. Normal speech. Laboratory Laboratory Tests Test 01/20/18 15:00 White Blood Count 6.6 Red Blood Count 4.66 Hemoglobin 10.8 Hematocrit 34.7 Mean Corpuscular Volume 74.4 Mean Corpuscular Hemoglobin 23.2 Mean Corpuscular Hemoglobin Concent 31.2 Red Cell Distribution Width 20.1 Platelet Count 218 Mean Platelet Volume 8.5 Neutrophils (%) (Auto) 68.9 Lymphocytes (%) (Auto) 17.6 Monocytes (%) (Auto) 8.1 Eosinophils (%) (Auto) 4.4 Basophils (%) (Auto) 1.0 Neutrophils # (Auto) 4.5 Lymphocytes # (Auto) 1.2 Monocytes # (Auto) 0.5 Eosinophils # (Auto) 0.3 Basophils # (Auto) 0.1 CBC Comment DIFF FINAL Differential Comment Erythrocyte Sedimentation Rate 28 Prothrombin Time 12.5 Prothromb Time International Ratio 1.2 Activated Partial Thromboplast Time 29.6 Blood Urea Nitrogen 12 Creatinine 1.11 Random Glucose 222 Calcium Level 8.2 Magnesium Level 1.8 Sodium Level 133 Potassium Level 4.3 Chloride Level 104 Carbon Dioxide Level 20.3 Anion Gap 9 Estimat Glomerular Filtration Rate 69 Total Creatine Kinase 85 Troponin I 0.02 C-Reactive Protein 0.69 B-Type Natriuretic Peptide 2776 Date/Time Source Procedure Growth Status 01/20/18 15:35 Blood Line Aerobic Blood Culture Pending Received 01/20/18 15:35 Blood Line Anaerobic Blood Culture Pending Received 01/20/18 15:35 Wound Foot Gram Stain - Final Resulted 01/20/18 15:35 Wound Foot Wound Culture Pending Resulted Result Diagram: 01/20/18 1500 01/20/18 1500 Imaging Last Impressions Lower Extremity Ultrasound 01/20/18 1511 Signed Impressions: Service Date/Time: Saturday, January 20, 2018 15:26 - CONCLUSION: 1. No evidence for DVT. 2. Prominent right inguinal lymph nodes are present. Alexis Villalobos MD Chest X-Ray 01/20/18 1404 Signed Impressions: Service Date/Time: Saturday, January 20, 2018 14:26 - CONCLUSION: 1. COPD changes and mild cardiomegaly. Kd Estrada MD Foot X-Ray 01/20/18 0000 Signed Impressions: Service Date/Time: Saturday, January 20, 2018 14:20 - CONCLUSION: Soft tissue swelling, postsurgical changes, an ulceration as above. Alexis Villalobos MD Caprini VTE Risk Assessment Caprini VTE Risk Assessment: Mod/High Risk (score >= 2) Caprini Risk Assessment Model Point Value = 1 Point Value = 2 Point Value = 3 Point Value = 5 Age 41-60 Minor surgery BMI > 25 kg/m2 Swollen legs Varicose veins or History of unexplained or recurrent spontaneous Oral contraceptives or hormone replacement Sepsis (< 1 month) Serious lung disease, including pneumonia (< 1 month) Abnormal pulmonary function Acute myocardial infarction Congestive heart failure (< 1 month) History of inflammatory bowel disease Medical patient at bed rest Age 61-74 Arthroscopic surgery Major open surgery (> 45 min) Laparoscopic surgery (> 45 min) Malignancy Confined to bed (> 72 hours) Immobilizing plaster cast Central venous access Age >= 75 History of VTE Family history of VTE Factor V Leiden Prothrombin [id number] Lupus anticoagulant Anticardiolipin antibodies Elevated serum homocysteine Heparin-induced thrombocytopenia Other congenital or acquired thrombophilia Stroke (< 1 month) Elective arthroplasty Hip, pelvis, or leg fracture Acute spinal cord injury (< 1 month) Prophylaxis Regimen Total Risk Factor Score Risk Level Prophylaxis Regimen 0-1 Low Early ambulation 2 Moderate Order ONE of the following: *Sequential Compression Device (SCD) *Heparin 5000 units SQ BID 3-4 Higher Order ONE of the following medications: *Heparin 5000 units SQ TID *Enoxaparin/Lovenox 40 mg SQ daily (WT < 150 kg, CrCl > 30 mL/min) *Enoxaparin/Lovenox 30 mg SQ daily (WT < 150 kg, CrCl > 10-29 mL/min) *Enoxaparin/Lovenox 30 mg SQ BID (WT < 150 kg, CrCl > 30 mL/min) AND/OR *Sequential Compression Device (SCD) 5 or more Highest Order ONE of the following medications: *Heparin 5000 units SQ TID (Preferred with Epidurals) *Enoxaparin/Lovenox 40 mg SQ daily (WT < 150 kg, CrCl > 30 mL/min) *Enoxaparin/Lovenox 30 mg SQ daily (WT < 150 kg, CrCl > 10-29 mL/min) *Enoxaparin/Lovenox 30 mg SQ BID (WT < 150 kg, CrCl > 30 mL/min) AND *Sequential Compression Device (SCD) Assessment and Plan Problem List: (1) CHF exacerbation ICD Code: I50.9 - Heart failure, unspecified Status: Acute (2) Diabetic foot infection ICD Code: E11.69 - Diabetic foot infection; L08.9 - Local infection of the skin and subcutaneous tissue, unspecified Status: Acute (3) DM (diabetes mellitus) ICD Code: E11.9 - Diabetes mellitus Status: Chronic Assessment and Plan 53 y/o male with a history of DM, CAD, diabetic neuropathy, CHF on heart transplant list, multiple toe amputations presented to the ED with complaints of shortness of breath and fluid overload. CHF exacerbation, acute on chronic Chest x-ray reviewed and shows mild cardiomegaly BMP 2776 -Lasix 40mg IV twice a day -BMP in a.m. -Consult cardiology, patient with LifeVest and no outpatient piped pocket machine operator -Fluid restriction Diabetic foot infection, suspect recurrent osteomyelitis Foot x-ray reviewed and shows right soft tissue swelling ESR 28, CRP 69 -Consult podiatry for recommendations -Patient given 1 dose of Vanco in the ED, pharmacy consult, follow closely patient with history of renal failure while on vancomycin -Wound cultures pending -Pain management with IV morphine -Foot MRI ordered to rule out osteomyelitis Diabetes, chronic, currently uncontrolled likely due to foot infection -Accu-Cheks with sliding scale insulin -Diabetic diet -Continue home long-acting insulin DVT prophylaxis: Heparin Discussed Condition With Patient and RN Physician Certification 2 Midnight Certification Type: Admission for Inpatient Services Order for Inpatient Services The services are ordered in accordance with Medicare regulations or non- Medicare payer requirements, as applicable. In the case of services not specified as inpatient-only, they are appropriately provided as inpatient services in accordance with the 2-midnight benchmark. Estimated LOS (days): 2 days is the estimated time the patient will need to remain in the hospital, assuming treatment plan goals are met and no additional complications. Post-Hospital Plan: Not yet determined Velia Crocker Jan 20, 2018 20:14
[2018-01-20] MEDS: DOCUSATE SODIUM 50 MG/SENNA 8.6 MG TAB PO SCH (21:00)
[2018-01-20] MEDS: INSULIN ASPART SUPPLEMENTAL SCALE SQ SCH (21:18)
[2018-01-20] MEDS: SODIUM CHLORIDE 0.9% FLUSH 10 ML FLUSH IV FLUSH SCH (21:22)
[2018-01-20] MEDS: MORPHINE SULFATE 4 MG/ML INJ IV PUSH PRN (22:16)
[2018-01-20] MEDS ORDERED: GLUCAGON 1 MG/ML VIAL OTHER PRN (22:30)
[2018-01-20] MEDS ORDERED: INSULIN GLARGINE 1,000 UNITS/10 ML VIAL SQ SCH (22:30)
[2018-01-20] MEDS: CARVEDILOL 12.5 MG TAB PO SCH (23:21)
[2018-01-20] MEDS: INSULIN DETEMIR 100 UNITS/ML VIAL SQ SCH (23:22)
[2018-01-20 23:40] VITALS: BP 134/89; PULSE 80; RESP 14; O2SAT 100
[2018-01-21] VITALS (7 sets, daily range): BP systolic 118–144; BP diastolic 75–87; PULSE 66–78; RESP 15–20; TEMP 97.5–98.1; O2SAT 100
[2018-01-21] MEDS: ONDANSETRON HCL 4 MG/2 ML VIAL IVP PRN ×3 (00:14→14:15)
[2018-01-21] MEDS ORDERED: Vancomycin Consult Pharmacy 1 EA OTHER SCH (01:30)
[2018-01-21] MEDS: MORPHINE SULFATE 4 MG/ML INJ IV PUSH PRN ×5 (03:07→21:56)
[2018-01-21] MEDS: VANCOMYCIN 1,000 MG/NS 250 ML IV SCH ×4 (05:32→16:35)
[2018-01-21 06:09] LABS: ALBUMIN 2.5 GM/DL (3.4-5.0); ALKALINE PHOSPHATASE 161 U/L (45-117); ALT (GPT) 22 U/L (12-78); AST (GOT) 27 U/L (15-37); BLOOD UREA NITROGEN 15 MG/DL (7-18); CALCIUM 8.1 MG/DL (8.5-10.1); CHLORIDE 105 MEQ/L (98-107); CREATININE 1.14 MG/DL (0.60-1.30); GLOMERULAR FILTRATION RATE 67 ML/MIN (>89); GLUCOSE,RANDOM 96 MG/DL (74-106); SODIUM (NA) 133 MEQ/L (136-145); TOTAL BILIRUBIN ADULT 0.9 MG/DL (0.2-1.0); TOTAL PROTEIN 7.5 GM/DL (6.4-8.2); TROPONIN I 0.03 NG/ML (0.02-0.05)
[2018-01-21] MEDS: INSULIN ASPART SUPPLEMENTAL SCALE SQ SCH ×4 (08:00→20:26)
[2018-01-21] MEDS: CARVEDILOL 12.5 MG TAB PO SCH ×2 (08:19→20:25)
[2018-01-21] MEDS: ASPIRIN 81 MG CHEW TAB CHEW SCH (08:20)
[2018-01-21] MEDS: amLODIPine BESYLATE 5 MG TAB PO SCH (08:20)
[2018-01-21] MEDS: POTASSIUM CHLORIDE 10 MEQ CONTROLLED RELEASE TAB PO SCH ×2 (08:20→20:25)
[2018-01-21] MEDS: FOLIC ACID 1 MG TAB PO SCH (08:21)
[2018-01-21] MEDS: SODIUM CHLORIDE 0.9% FLUSH 10 ML FLUSH IV FLUSH SCH ×2 (08:21→21:56)
[2018-01-21 08:48] LABS: AUTOMATED NEUTROPHIL # 3.9 TH/MM3 (1.8-7.7); BASOPHIL # 0.1 TH/MM3 (0-0.2); EOSINOPHIL # 0.4 TH/MM3 (0-0.4); EOSINOPHIL % 6.1 % (0.0-4.0); HEMATOCRIT 34.1 % (39.0-51.0); HEMOGLOBIN 10.9 GM/DL (13.0-17.0); MEAN CELL VOLUME 74.5 FL (80.0-100.0); MEAN CORPUSCULAR HEMOGLOBIN 23.8 PG (27.0-34.0); MEAN PLATELET VOLUME 8.3 FL (7.0-11.0); MONOCYTE # 0.6 TH/MM3 (0-0.9); NEUT % 55.9 % (16.0-70.0); PLATELET COUNT 225 TH/MM3 (150-450); RED BLOOD COUNT 4.57 MIL/MM3 (4.50-5.90); RED CELL DISTRIBUTION WIDTH 20.6 % (11.6-17.2)
--- NOTE | 2018-01-21 08:55 | MB ---
cc: Trung Thomas DPM DATE OF CONSULT: 01/21/2018 REASON FOR CONSULTATION: Nonhealing right lower extremity ulcer. HISTORY OF PRESENT ILLNESS: This is a 53-year-old male who is known to my associate, Dr. Peoples, who saw her last Saturday. The ulcer was minimal at that time; however, there was much worsening of the condition and he was advised to present to the ED. He was actually seen with shortness of breath with exertion, was unable to lay flat and he is also having increasing right outside foot pain. He does have a LifeVest in place. He was placed at [facility] recently. 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 PAST MEDICAL HISTORY: Diabetes, CAD, CHF. PAST SURGICAL HISTORY: Left transmetatarsal amputation, multiple toes amputations on the right, left forearm surgery, spinal surgery. MEDICATIONS: Reported medications reviewed and verified in chart. Inpatient medications also reviewed. The patient is receiving vancomycin. ALLERGIES: AMOXICILLIN AND OXYCODONE. PHYSICAL EXAMINATION: GENERAL: This is an alert and oriented and male, seen bedside. He appears to be only minimally labored. He is in no acute distress. VITAL SIGNS: Temperature is 97.8, pulse rate 74, respiratory rate 15, blood pressure 118/85. He is satting 100% on room air. BILATERAL LOWER EXTREMITIES: On exam of the left lower extremity, there is a well healed transmetatarsal amputation site. Right lower extremity examined. There is noted to be ischemic dry eschar of the distal lateral fifth metatarsal area. Well healed digits. On the medial foot, the foot appears to be cool, pulses are nonpalpable. There are no obvious signs of acute ischemia; however, there is delayed capillary fill time to the patient's amputation flaps. There is no soft tissue crepitus. No soft tissue emphysema. No ascending erythema. No obvious odor. There is no obvious purulence. The patient is careful of moving of ankle. The soft tissue envelope is cool all the way to below the knee. LABORATORY FINDINGS: White blood cell 6.6, hemoglobin and hematocrit 10 and 34, platelet count is 218. ESR 28. Chem-7: Sodium 133, potassium 4.2, chloride 105, CO2 of 21, BUN of 15, random glucose is 96. AST 27, ALT 22. Albumin 2.5. IMAGING FINDINGS: Lower extremity ultrasound: No evidence of DVT, prominent right inguinal lymph nodes are present. Foot x-ray: Soft tissue swelling, post surgical changes; however, no obvious signs of acute osteomyelitis. ASSESSMENT AND PLAN: Right foot ischemic ulcer, possible early progressive peripheral vascular disease of the extremity. Recommending vascular surgery consultation. No operative debridement planned at this time. I do not feel that the patient is suffering from a deep abscess and given the timing of the ulcer, I do not feel that this is progressed osteomyelitis, so we will continue to follow for conservative care at this time, pending vascular surgery recommendations. MINESH Tinajero/CHERRIE , 08:19 AM , 08:53 AM
--- NOTE | 2018-01-21 09:23 | PD.CONS ---
HPI Service cardiology Consult Requested By Reason for Consult chf exacerbation Primary Care Physician No Primary Care Physician History of Present Illness This is a 53 yo M with diabetes, chronic CHF and cardiomyopathy (LifeVest in place), CAD and PAD (s/p toe amputations) who presents with progressive SOB, orthopnea and weight gain over the past several days. He also reports R lateral foot pain progressively worsening. 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 He is staying in [place] to assist his mother but resides in [place] and has a supercharger repair supervisor there who placed his LifeVest several years ago; no recent follow up. Patient had a cardiac catheterization by Dr. Dillon Martinez showing non- obstructive CAD, echo at that time showed reduced EF 30-35%. He has only been taking asa and diuretic. He reports having a 15 pound weight gain over the past week with mild chest discomfort and persistent dry cough. Podiatry is following due to R foot ulcer. EKG shows non-specific T wave changes and troponins are mildly elevated. (Ksenia Grace) Review of Systems Consitutional: COMPLAINS OF: Fatigue, Weight gain, DENIES: Fever, Chills, Weight loss Respiratory: COMPLAINS OF: See HPI, Shortness of breath, DENIES: Cough, Snoring , Wheezing, Sputum production Cardiovascular: COMPLAINS OF: See HPI, Chest pain, DENIES: Palpitations, Syncope, Tachycardia Gastrointestinal: DENIES: Nausea, Vomiting, Change in bowel habits, Reflux, Bloody stools, Melena (Ksenia Grace) Past Family Social History Allergies: Coded Allergies: amoxicillin (Verified Allergy, Mild, Hives, 01/20/18) oxycodone (Verified Allergy, Mild, Hives, 01/20/18) Past Medical History DM CAD CHF Past Surgical History Multiple toe amputations Left forearm surgery Spinal surgery Reported Medications Reported Meds & Active Scripts Active Docusate Sodium 100 Mg Cap 100 Mg PO BID PRN Folic Acid 1 Mg Tablet 1 Mg PO DAILY Norvasc (Amlodipine Besylate) 5 Mg Tab 5 Mg PO DAILY Aspirin 81 Mg Chew 81 Mg CHEW DAILY Lantus Inj (Insulin Glargine) 1,000 Unit/10 Ml Vial 28 Units SQ BID Klor-Con 10 (Potassium Chloride) 10 Meq Tab 10 Meq PO BID Coreg (Carvedilol) 12.5 Mg Tab 25 Mg PO Q12HR Lipitor (Atorvastatin Calcium) 10 Mg Tab 10 Mg PO DAILY Reported Lasix (Furosemide) 20 Mg Tab 10 Mg PO BID Active Ordered Medications Current Medications Medications (Trade) Dose Ordered Sig/[place]ville Route Start Time Stop Time Status Last Admin (NS Flush) 2 ml UNSCH PRN IV FLUSH 01/20/18 19:00 (NS Flush) 2 ml BID IV FLUSH 01/20/18 21:00 01/21/18 08:21 (Tylenol) 650 mg Q4H PRN PO 01/20/18 19:00 (Zofran Inj) 4 mg Q6H PRN IVP 01/20/18 19:00 01/21/18 07:30 (Tylenol) 650 mg Q6H PRN PO 01/20/18 19:00 (Narcan Inj) 0.4 mg UNSCH PRN IV PUSH 01/20/18 19:00 (Mariam-Colace) 1 tab BID PO 01/20/18 21:00 (NovoLOG SUPPLEMENTAL SCALE) 1 ACHS SLIDING SCALE SQ 01/20/18 21:00 (Morphine Inj) 2 mg Q3H PRN IV PUSH 01/20/18 20:30 (Morphine Inj) 4 mg Q3H PRN IV PUSH 01/20/18 20:30 01/21/18 03:07 (Lasix Inj) 40 mg BID@ IV PUSH 01/21/18 09:00 (Heparin Inj) 5,000 units Q12HR SQ 01/21/18 21:00 (D50w (Vial) Inj) 50 ml UNSCH PRN IV PUSH 01/20/18 22:30 (Glucagon Inj) 1 mg UNSCH PRN OTHER 01/20/18 22:30 (Norvasc) 5 mg DAILY PO 01/21/18 09:00 01/21/18 08:20 (Aspirin Chew) 81 mg DAILY CHEW 01/21/18 09:00 01/21/18 08:20 (Lipitor) 10 mg DAILY PO 01/21/18 09:00 (Coreg) 25 mg Q12HR PO 01/20/18 22:30 01/21/18 08:19 (Folate) 1 mg DAILY PO 01/21/18 09:00 01/21/18 08:21 (KCl) 10 meq BID PO 01/21/18 09:00 01/21/18 08:20 (Levemir Inj) 28 units BID SQ 01/20/18 22:30 01/20/18 23:22 Pharmacy Profile Note 0 ml @ 0 mls/hr UNSCH OTHER 01/21/18 01:30 Vancomycin HCl 1000 mg/Sodium Chloride 250 ml @ 250 mls/hr Q12H IV 01/21/18 05:00 01/21/18 05:32 Miscellaneous Information SPECIFIC LAB TO BE [facility]... ONCE ONCE .XX 01/22/18 04:45 01/22/18 04:46 Family History Mom: CAD, CVA Grandma: CT at a young age Social History Tobacco use: Quit Sep 2017, prior started in 1976 Alcohol use: Denies Illicit use: Marijuana occasionally (Ksenia Grace) Physical Exam Vital Signs Vital Signs Date Time Temp Pulse Resp B/P (MAP) Pulse Ox O2 Delivery O2 Flow Rate FiO2 01/21/18 08:58 73 16 144/87 (106) 100 01/21/18 03:44 74 15 118/85 (96) 100 Room Air 01/21/18 03:40 17 01/20/18 23:40 80 14 134/89 (104) 100 Room Air 01/20/18 20:00 98 Nasal Cannula 3.00 01/20/18 19:29 81 99 Room Air 01/20/18 19:28 81 15 124/80 (95) 99 Room Air 01/20/18 17:03 78 15 127/88 (101) 98 Room Air 01/20/18 15:10 83 20 97 Room Air 01/20/18 14:02 97.8 77 22 143/92 (109) 100 Physical Exam GENERAL: SKIN: Warm and dry. HEAD: Atraumatic. Normocephalic. EYES: Pupils equal and round. No scleral icterus. ENT: No nasal bleeding or discharge. NECK: Trachea midline. No JVD. CARDIOVASCULAR: Regular rate and rhythm. no murmurs RESPIRATORY: No accessory muscle use. Clear to auscultation. Breath sounds equal bilaterally. GASTROINTESTINAL: Abdomen soft, non-tender, nondistended. Hepatic and splenic margins not palpable. MUSCULOSKELETAL: Extremities without clubbing, cyanosis, or edema. bilateral feet reveal several toe amputations, R lateral foot ulcer NEUROLOGICAL: Awake and alert. No obvious cranial nerve deficits. Normal speech. PSYCHIATRIC: Appropriate mood and affect; insight and judgment normal. Laboratory Laboratory Tests Test 01/20/18 15:00 01/20/18 23:12 01/21/18 05:10 01/21/18 08:04 White Blood Count 6.6 7.0 Red Blood Count 4.66 4.57 Hemoglobin 10.8 10.9 Hematocrit 34.7 34.1 Mean Corpuscular Volume 74.4 74.5 Mean Corpuscular Hemoglobin 23.2 23.8 Mean Corpuscular Hemoglobin Concent 31.2 32.0 Red Cell Distribution Width 20.1 20.6 Platelet Count 218 225 Mean Platelet Volume 8.5 8.3 Neutrophils (%) (Auto) 68.9 55.9 Lymphocytes (%) (Auto) 17.6 28.0 Monocytes (%) (Auto) 8.1 9.0 Eosinophils (%) (Auto) 4.4 6.1 Basophils (%) (Auto) 1.0 1.0 Neutrophils # (Auto) 4.5 3.9 Lymphocytes # (Auto) 1.2 2.0 Monocytes # (Auto) 0.5 0.6 Eosinophils # (Auto) 0.3 0.4 Basophils # (Auto) 0.1 0.1 CBC Comment DIFF FINAL DIFF FINAL Differential Comment Erythrocyte Sedimentation Rate 28 Prothrombin Time 12.5 Prothromb Time International Ratio 1.2 Activated Partial Thromboplast Time 29.6 Blood Urea Nitrogen 12 15 Creatinine 1.11 1.14 Random Glucose 222 96 Calcium Level 8.2 8.1 Magnesium Level 1.8 Sodium Level 133 133 Potassium Level 4.3 4.2 Chloride Level 104 105 Carbon Dioxide Level 20.3 21.0 Anion Gap 9 7 Estimat Glomerular Filtration Rate 69 67 Total Creatine Kinase 85 Troponin I 0.02 0.03 0.03 C-Reactive Protein 0.69 B-Type Natriuretic Peptide 2776 Total Protein 7.5 Albumin 2.5 Alkaline Phosphatase 161 Aspartate Amino Transf (AST/SGOT) 27 Alanine Aminotransferase (ALT/SGPT) 22 Total Bilirubin 0.9 Date/Time Source Procedure Growth Status 01/20/18 15:35 Blood Line Aerobic Blood Culture Pending Received 01/20/18 15:35 Blood Line Anaerobic Blood Culture Pending Received 01/20/18 15:35 Wound Foot Gram Stain - Final Resulted 01/20/18 15:35 Wound Foot Wound Culture Pending Resulted (Ksenia Grace) Result Diagram: 01/21/18 0804 01/21/18 0510 Imaging Last 24 hours Impressions Lower Extremity Ultrasound 01/20/18 1511 Signed Impressions: Service Date/Time: Saturday, January 20, 2018 15:26 - CONCLUSION: 1. No evidence for DVT. 2. Prominent right inguinal lymph nodes are present. Alexis Villalobos MD Chest X-Ray 01/20/18 1404 Signed Impressions: Service Date/Time: Saturday, January 20, 2018 14:26 - CONCLUSION: 1. COPD changes and mild cardiomegaly. Kd Estrada MD (Ksenia Grace) Assessment and Plan Problem List: (1) Cardiomyopathy ICD Codes: I42.9 - Cardiomyopathy, unspecified Status: Acute (2) Chest pain ICD Codes: R07.9 - Chest pain, unspecified Status: Acute (3) CHF exacerbation ICD Codes: I50.9 - Heart failure, unspecified Status: Acute Assessment and Plan 53 yo M with diabetes, chronic CHF and cardiomyopathy (LifeVest in place), CAD and PAD (s/p toe amputations) who presents with progressive SOB, orthopnea and weight gain over the past several days. He also reports R lateral foot pain progressively worsening. 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 He is staying in [place] to assist his mother but resides in [place] and has a supercharger repair supervisor there who placed his LifeVest several years ago; no recent follow up. Patient had a cardiac catheterization by Dr. Dillon Martinez showing non-obstructive CAD, echo at that time showed reduced EF 30-35%. acute on chronic CHF- cont lasix po, creatinine ok. monitor I's/O's cardiomyopathy- likely nonischemic, LifeVest in place. has not been optimized medically. cont carvedilol will assess EF with updated echo PAD- s/p multiple toe amputations, podiatry following for R foot ulcer, vascular surgery consult requested (Ksenia Grace) Assessment and Plan NICM EF 10-20% ICD on hold due to infection. LifeVest in place Lasix IV BID Vasc Surg consulted medically optimized for surgical intervention if necessary, no significant CAD. monitor volume status closely mariam-operatively. keep negative I/O Patient follows with supercharger repair supervisor Misty Godfrey no change in management at this point planning to sign off but available for questions (Mp Galdamez MD) Ksenia Grace Jan 21, 2018 09:23 Mp Galdamez MD Jan 21, 2018 10:30
[2018-01-21] MEDS: DOCUSATE SODIUM 50 MG/SENNA 8.6 MG TAB PO SCH ×2 (11:08→20:26)
[2018-01-21] MEDS: ATORVASTATIN 10 MG TAB PO SCH (11:08)
[2018-01-21] MEDS: INSULIN DETEMIR 100 UNITS/ML VIAL SQ SCH ×2 (11:08→20:27)
[2018-01-21] MEDS: FUROSEMIDE 40 MG/4 ML VIAL IV PUSH SCH ×2 (11:08→17:15)
--- NOTE | 2018-01-21 15:43 | HHI.PR ---
Subjective Remarks Nursing denies any deterioration since last night. Patient himself says that his shortness of breath is "10% better". Says that his nausea and subjective fevers and chills are also much better. Objective Vital Signs Date Time Temp Pulse Resp B/P (MAP) Pulse Ox O2 Delivery O2 Flow Rate FiO2 01/21/18 12:00 98.1 66 20 122/75 (91) 100 01/21/18 08:58 73 16 144/87 (106) 100 01/21/18 03:44 74 15 118/85 (96) 100 Room Air 01/21/18 03:40 17 01/20/18 23:40 80 14 134/89 (104) 100 Room Air 01/20/18 20:00 98 Nasal Cannula 3.00 01/20/18 19:29 81 99 Room Air 01/20/18 19:28 81 15 124/80 (95) 99 Room Air 01/20/18 17:03 78 15 127/88 (101) 98 Room Air I/O 01/20/18 01/20/18 01/20/18 01/21/18 01/21/18 01/21/18 07:00 15:00 23:00 07:00 15:00 23:00 Intake Total 250 ml Balance 250 ml Intake IV Total 250 ml Result Diagram: 01/21/18 0804 01/21/18 0510 Objective Remarks Slightly decreased breath sounds in bilateral bases, otherwise breath sounds are clear, patient has no conversive dyspnea, no cyanosis Right foot is globally edematous with some scattered erythema, bilateral lower extremities on the other hand are not edematous A/P Assessment and Plan 53 y/o male with a history of DM, CAD, diabetic neuropathy, CHF on heart transplant list, multiple toe amputations presented to the ED with complaints of shortness of breath and fluid overload. Acute on chronic systolic CHF -Cardiology signed off, appreciate regulations, continue twice daily Lasix dosing, monitor renal function, intake output, will start patient on low-dose lisinopril Diabetic foot infection Foot x-ray reviewed and shows right soft tissue swelling ESR 28, CRP 69 -IV morphine as needed for breakthrough pain, podiatry plans partial amputation, I have ordered ABIs to evaluate patency of arterial flow as podiatry has consulted vascular surgery. Podiatry does not suspect osteomyelitis, MRI canceled. Diabetes, chronic, currently uncontrolled likely due to foot infection -Accu-Cheks with sliding scale insulin -Diabetic diet -Continue home long-acting insulin DVT prophylaxis: Heparin David Hansen MD Jan 21, 2018 15:43
[2018-01-21] MEDS ORDERED: LISINOPRIL 5 MG TAB PO ONE (15:45)
[2018-01-21] MEDS ORDERED: PILL SPLITTER OTHER PRN (16:00)
[2018-01-21] MEDS: DEXTROSE 50% IN WATER 50 ML VIAL(D50) IV PUSH PRN (17:37)
--- NOTE | 2018-01-21 18:43 | PD.CAR.PN ---
CVT Progress Note Subjective/Hospital Course: Patient evaluated Full consult dictated Appropriate studies ordered Will follow El Singh Objective: Vital Signs Date Time Temp Pulse Resp B/P (MAP) Pulse Ox O2 Delivery O2 Flow Rate FiO2 01/21/18 16:00 66 01/21/18 14:30 97.5 70 18 138/85 (102) 100 01/21/18 12:00 98.1 66 20 122/75 (91) 100 01/21/18 08:58 73 16 144/87 (106) 100 01/21/18 03:44 74 15 118/85 (96) 100 Room Air 01/21/18 03:40 17 01/20/18 23:40 80 14 134/89 (104) 100 Room Air 01/20/18 20:00 98 Nasal Cannula 3.00 01/20/18 19:29 81 99 Room Air 01/20/18 19:28 81 15 124/80 (95) 99 Room Air Labs: Laboratory Tests Test 01/21/18 08:04 White Blood Count 7.0 TH/MM3 (4.0-11.0) Red Blood Count 4.57 MIL/MM3 (4.50-5.90) Hemoglobin 10.9 GM/DL (13.0-17.0) Hematocrit 34.1 % (39.0-51.0) Mean Corpuscular Volume 74.5 FL (80.0-100.0) Mean Corpuscular Hemoglobin 23.8 PG (27.0-34.0) Mean Corpuscular Hemoglobin Concent 32.0 % (32.0-36.0) Red Cell Distribution Width 20.6 % (11.6-17.2) Platelet Count 225 TH/MM3 (150-450) Mean Platelet Volume 8.3 FL (7.0-11.0) Neutrophils (%) (Auto) 55.9 % (16.0-70.0) Lymphocytes (%) (Auto) 28.0 % (9.0-44.0) Monocytes (%) (Auto) 9.0 % (0.0-8.0) Eosinophils (%) (Auto) 6.1 % (0.0-4.0) Basophils (%) (Auto) 1.0 % (0.0-2.0) Neutrophils # (Auto) 3.9 TH/MM3 (1.8-7.7) Lymphocytes # (Auto) 2.0 TH/MM3 (1.0-4.8) Monocytes # (Auto) 0.6 TH/MM3 (0-0.9) Eosinophils # (Auto) 0.4 TH/MM3 (0-0.4) Basophils # (Auto) 0.1 TH/MM3 (0-0.2) CBC Comment DIFF FINAL Differential Comment Result Diagram: 01/21/18 0804 01/21/18 0510 (1) Cardiomyopathy (2) Chest pain (3) CHF exacerbation Carlos Hayward MD Jan 21, 2018 18:43
--- NOTE | 2018-01-21 19:22 | EKG ---
Date Performed: 01/21/2018 Time Performed: 05:12:13 PTAGE: 53 years EKG: Sinus rhythm LEFT ANTERIOR FASCICULAR BLOCK MODERATE T-WAVE ABNORMALITY ABNORMAL ECG PREVIOUS TRACING : 01/20/2018 23.04 Since the previous tracing, no significant change noted DOCTOR: Juanis Ellison Interpretating Date/Time 01/21/2018 19:21:52
--- NOTE | 2018-01-21 19:44 | MB ---
cc: Carlos Hayward MD DATE OF CONSULT: 01/21/2018 CONSULTING PHYSICIAN: Dr. Hayward, Vascular Surgery REASON FOR CONSULTATION: Ischemia of both legs. HISTORY OF PRESENT ILLNESS: This 53-year-old male with extensive past medical history including diabetes mellitus, CHF, coronary artery disease presents to the hospital with gangrene of the right foot 5th toe and lateral aspect of the right foot. Patient already had transmetatarsal amputation on the left side in the past and lost all 4 toes on the right side except this last one. A question arises about vascular supply. PAST MEDICAL HISTORY: Diabetes mellitus, coronary artery disease, CHF. PAST SURGICAL HISTORY: Transmetatarsal amputations and spinal surgery. SOCIAL HISTORY: Patient lived most of his life in [place], moved down here about 3 years ago and is very noncompliant with his care, bounces between the doctors, hospitals and states essentially. He is apparently on some sort of a transplant list for his heart. He smokes marijuana and smoked a pack of cigarettes a day until September of last year. PHYSICAL EXAMINATION: GENERAL: Reveals a 53-year-old male in no acute distress. HEENT: Normocephalic. No trauma to the head. Pupils equal, reactive. Extraocular muscles intact. NECK: Supple with bilateral carotid pulses. No bruits. CHEST: Bilateral breath sounds. HEART: Regular rhythm. ABDOMEN: Soft. Active bowel sounds. No rebound, no guarding, no masses. EXTREMITIES: Patient has bilateral femoral pulses on palpation. Weak dopplerable popliteal pulses and I do not appreciate either the dorsalis pedis or posterior tibial in the feet. Clearly patient has some sort of blood supply to have a viable proximal foot, however, both feet are cold, although perfused somehow. Capillary refill is obviously decreased. There is a gangrenous area on the lateral aspect of the right foot and this is involving also the 5th toe. NEUROLOGIC: Patient is grossly intact. IMPRESSION AND RECOMMENDATIONS: This patient has a combination of diabetes mellitus, coronary artery disease and heavy smoking, which is clearly deadly. At this point, he has a stigmata of congestive heart failure and decompensated cardiac dysfunction with pleural effusions and generalized edema. At this point, patient was checked for ejection fraction and this was about 30%. Based on all the above, clearly he needs to have the toe amputated, however, I do not see any vascular workup on the chart, but [place]. At this point, patient needs a CTA with a runoff to see if there is anything that we can help this patient with because in absence of any reconstructible disease, he will lose both legs as things are going right now. Patients who have limb-threatening ischemia and manifest this with progressive loss of appendages will end up with a below-knee amputation in 25% of cases within 5 years. Therefore, CTA with runoff is ordered. [id number], based on the patient's general condition, he may not be candidate for any major open surgery and everything has to be tailored toward the fact that he has major cardiac problems. I will continue follow up patient with you. CRITICAL CARE TIME: Thirty-five minutes. MD RAMAKRISHNA Camacho/AIRAM/angie , 06:48 PM , 07:34 PM
--- NOTE | 2018-01-21 19:53 | EKG ---
Date Performed: 01/20/2018 Time Performed: 23:04:48 PTAGE: 53 years EKG: Sinus rhythm LEFT ANTERIOR FASCICULAR BLOCK ABNORMAL ECG PREVIOUS TRACING : 01/20/2018 14.38 Since the previous tracing, no significant change noted DOCTOR: Juanis Ellison Interpretating Date/Time 01/21/2018 19:51:39
--- NOTE | 2018-01-21 20:22 | EKG ---
Date Performed: 01/20/2018 Time Performed: 14:38:50 PTAGE: 53 years EKG: Sinus rhythm LEFT ANTERIOR FASCICULAR BLOCK POSSIBLE ANTERIOR MYOCARDIAL INFARCTION ABNORMAL ECG PREVIOUS TRACING : 02/19/2017 06.02 Since the previous tracing, IVCD and ST-T changes no longer present DOCTOR: Juanis Ellison Interpretating Date/Time 01/21/2018 20:20:21
[2018-01-21] MEDS: HEPARIN SODIUM - SQ 10,000 UNITS/ML VIAL SQ SCH (20:26)
[2018-01-22] VITALS (9 sets, daily range): BP systolic 106–136; BP diastolic 66–97; PULSE 58–95; RESP 17–18; TEMP 97.1–97.6; O2SAT 97–100
[2018-01-22] MEDS: MORPHINE SULFATE 4 MG/ML INJ IV PUSH PRN ×7 (01:53→21:37)
[2018-01-22] MEDS ORDERED: PHARMACY ORDERED LAB ONE (04:45)
[2018-01-22] MEDS: VANCOMYCIN 1,000 MG/NS 250 ML IV SCH ×2 (05:00)
[2018-01-22] MEDS: INSULIN ASPART SUPPLEMENTAL SCALE SQ SCH ×4 (08:00→21:00)
[2018-01-22] MEDS: INSULIN DETEMIR 100 UNITS/ML VIAL SQ SCH ×2 (09:00→21:00)
[2018-01-22] MEDS: POTASSIUM CHLORIDE 10 MEQ CONTROLLED RELEASE TAB PO SCH (09:24)
[2018-01-22] MEDS: amLODIPine BESYLATE 5 MG TAB PO SCH (09:24)
[2018-01-22] MEDS: ASPIRIN 81 MG CHEW TAB CHEW SCH (09:24)
[2018-01-22] MEDS: ATORVASTATIN 10 MG TAB PO SCH (09:24)
[2018-01-22] MEDS: CARVEDILOL 12.5 MG TAB PO SCH ×2 (09:24→21:35)
[2018-01-22] MEDS: DOCUSATE SODIUM 50 MG/SENNA 8.6 MG TAB PO SCH ×2 (09:25→21:35)
[2018-01-22] MEDS: FUROSEMIDE 40 MG/4 ML VIAL IV PUSH SCH (09:25)
[2018-01-22] MEDS: HEPARIN SODIUM - SQ 10,000 UNITS/ML VIAL SQ SCH ×2 (09:25→21:40)
[2018-01-22] MEDS: FOLIC ACID 1 MG TAB PO SCH (09:25)
[2018-01-22] MEDS: LISINOPRIL 5 MG TAB PO SCH (09:25)
[2018-01-22] MEDS: SODIUM CHLORIDE 0.9% FLUSH 10 ML FLUSH IV FLUSH SCH ×2 (09:25→21:38)
[2018-01-22 11:23] LABS: BICARBONATE 21.3 MEQ/L (21.0-32.0); CALCIUM 8.5 MG/DL (8.5-10.1); CREATININE 1.2 MG/DL (0.60-1.30)
--- NOTE | 2018-01-22 11:30 | HHI.PR ---
Subjective Remarks Nursing denies any deterioration since last night. Patient himself says his shortness of breath is much better, he is seen ambulating up and down the hallway on room air without dyspnea. Objective Vital Signs Date Time Temp Pulse Resp B/P (MAP) Pulse Ox O2 Delivery O2 Flow Rate FiO2 01/22/18 08:00 97.1 60 18 120/84 (96) 100 01/22/18 04:18 97.6 60 17 133/89 (104) 97 01/22/18 04:00 58 01/22/18 00:35 97.4 71 17 128/83 (98) 100 01/22/18 00:00 69 01/21/18 21:33 21 01/21/18 21:00 97.6 69 17 137/85 (102) 100 01/21/18 20:00 78 01/21/18 16:00 66 01/21/18 14:30 97.5 70 18 138/85 (102) 100 01/21/18 12:00 98.1 66 20 122/75 (91) 100 I/O 01/21/18 01/21/18 01/21/18 01/22/18 01/22/18 01/22/18 06:59 14:59 22:59 06:59 14:59 22:59 Intake Total 240 ml Output Total 750 ml Balance -510 ml Intake Oral 240 ml Output Urine Total 750 ml # Voids 1 Result Diagram: 01/21/18 0804 01/22/18 1012 Objective Remarks Clear lungs bilaterally, no crackles, unlabored breathing, no cyanosis Walking with a limp leaning towards his left, right foot in gauze dressing A/P Assessment and Plan 53 y/o male with a history of DM, CAD, diabetic neuropathy, CHF on heart transplant list, multiple toe amputations presented to the ED with complaints of shortness of breath and fluid overload. Acute on chronic systolic CHF -Stabilized with negative balance, will switch Lasix to p.o. twice daily, continue to monitor intake and output Diabetic foot infection Foot x-ray reviewed and shows right soft tissue swelling ESR 28, CRP 69 -CTA results pending per vasc surg; podiatry anticipates ray amputation Diabetes, chronic, currently uncontrolled likely due to foot infection -Accu-Cheks with sliding scale insulin -Diabetic diet -Continue home long-acting insulin DVT prophylaxis: Heparin Masoodi,David Flakita MD Jan 22, 2018 11:30
--- NOTE | 2018-01-22 11:30 | RADRPT ---
EXAM DATE/TIME: 01/21/2018 00:00 [place] COMPARISON: [facility] ANKLE BRACHIAL INDEX, October 25, 2017, 0:00. INDICATIONS : Gangrene right foot fifth toe, Diabetes mellitus, CHF, CAD TECHNIQUE: Four-cuff ankle and brachial pressures were obtained. Pulse cuff waveform tracings of the ankles were recorded, and ankle-brachial indices were calculated. PRESSURES (mmHg): Brachial (arm): Right 115 Left IV site Ankle: Right 147 Left 131 YARELY: Right 1.28 Left 1.14 PULSED CUFF WAVEFORMS: Demonstrate a a diminished amplitude on the left. CONCLUSION: Mildly elevated ABIs. This would suggest densely calcified, non-compressible vessels. As such, YARELY va lues are likely unreliable. If there is strong clinical concern for significant vascular disease CT a ngiography and runoff could be performed. Kd Estrada MD on January 22, 2018 at 11:28 Board Certified Radiologist. This report was verified electronically.
[2018-01-22] MEDS: DEXTROSE 50% IN WATER 50 ML VIAL(D50) IV PUSH PRN (12:51)
[2018-01-22] MEDS: POTASSIUM CHLORIDE 25 MEQ EFFERVESCENT TAB PO SCH (15:51)
[2018-01-22] MEDS: VANCOMYCIN INJ 1,250 MG in SODIUM CHLOR 0.9% 250 ML INJ 250 ML IV SCH (15:51)
[2018-01-22] MEDS: FUROSEMIDE 40 MG TAB PO SCH (18:09)
[2018-01-23] VITALS (12 sets, daily range): BP systolic 97–114; BP diastolic 60–77; PULSE 57–66; RESP 16–20; TEMP 97–98.1; O2SAT 98–100
[2018-01-23] MEDS: MORPHINE SULFATE 4 MG/ML INJ IV PUSH PRN ×6 (00:42→20:15)
[2018-01-23] MEDS: SODIUM CHLORIDE 0.9% FLUSH 10 ML FLUSH IV FLUSH PRN ×2 (00:43→04:05)
[2018-01-23] MEDS: VANCOMYCIN INJ 1,250 MG in SODIUM CHLOR 0.9% 250 ML INJ 250 ML IV SCH (04:06)
[2018-01-23] MEDS: INSULIN ASPART SUPPLEMENTAL SCALE SQ SCH ×4 (08:00→20:13)
[2018-01-23 08:23] LABS: CREATININE 1.67 MG/DL (0.60-1.30)
[2018-01-23] MEDS: SODIUM CHLORIDE 0.9% FLUSH 10 ML FLUSH IV FLUSH SCH ×2 (08:32→20:13)
[2018-01-23] MEDS: CARVEDILOL 12.5 MG TAB PO SCH ×2 (08:35→20:50)
[2018-01-23] MEDS: DOCUSATE SODIUM 50 MG/SENNA 8.6 MG TAB PO SCH ×2 (08:35→20:12)
[2018-01-23] MEDS: LISINOPRIL 5 MG TAB PO SCH (08:37)
[2018-01-23] MEDS: ATORVASTATIN 10 MG TAB PO SCH (08:37)
[2018-01-23] MEDS: FOLIC ACID 1 MG TAB PO SCH (08:37)
[2018-01-23] MEDS: amLODIPine BESYLATE 5 MG TAB PO SCH (08:38)
[2018-01-23] MEDS: POTASSIUM CHLORIDE 25 MEQ EFFERVESCENT TAB PO SCH (08:38)
[2018-01-23] MEDS: HEPARIN SODIUM - SQ 10,000 UNITS/ML VIAL SQ SCH ×2 (08:39→20:12)
[2018-01-23] MEDS: FUROSEMIDE 40 MG TAB PO SCH (08:59)
[2018-01-23] MEDS: ASPIRIN 81 MG CHEW TAB CHEW SCH (10:23)
--- NOTE | 2018-01-23 11:19 | HHI.PR ---
Subjective Remarks Nursing denies any deterioration since last night. He himself denies any shortness of breath Objective Vital Signs Date Time Temp Pulse Resp B/P (MAP) Pulse Ox O2 Delivery O2 Flow Rate FiO2 01/23/18 10:32 98 Nasal Cannula 01/23/18 08:00 97.4 60 16 102/62 (75) 99 01/23/18 07:39 59 01/23/18 04:00 98.1 63 20 114/77 (89) 98 01/23/18 04:00 66 01/23/18 00:00 97.6 61 20 108/67 (81) 99 01/23/18 00:00 61 01/22/18 20:33 97.5 64 18 110/66 (81) 100 01/22/18 19:59 73 01/22/18 16:00 59 01/22/18 16:00 97.1 60 18 106/82 (90) 100 01/22/18 12:00 62 18 136/97 (110) 100 01/22/18 12:00 60 I/O 01/22/18 01/22/18 01/22/18 01/23/18 01/23/18 01/23/18 07:00 15:00 23:00 07:00 15:00 23:00 Intake Total 240 ml 720 ml 480 ml Output Total 750 ml Balance -510 ml 720 ml 480 ml Intake Oral 240 ml 720 ml 480 ml Output Urine Total 750 ml # Voids 1 4 8 Result Diagram: 01/21/18 0804 01/23/18 0630 Objective Remarks Lying in bed, clear lungs bilaterally, no crackles, unlabored breathing, no cyanosis Walking with a limp leaning towards his left, right foot in gauze dressing A/P Assessment and Plan 53 y/o male with a history of DM, CAD, diabetic neuropathy, CHF on heart transplant list, multiple toe amputations presented to the ED with complaints of shortness of breath and fluid overload. Acute on chronic systolic CHF -Significantly improved, Lasix, continue to monitor intake and output Diabetic foot infection Foot x-ray reviewed and shows right soft tissue swelling ESR 28, CRP 69 -CTA not ordered, I have ordered it now pending vascular surgery still wants this as the ABIs are nondiagnostic showing noncompressible vessels; podiatry anticipates ray amputation Diabetes, chronic, currently uncontrolled likely due to foot infection -Accu-Cheks with sliding scale insulin -Diabetic diet -Continue home long-acting insulin DVT prophylaxis: Heparin David Hansen MD Jan 23, 2018 11:19
[2018-01-23] MEDS: INSULIN DETEMIR 100 UNITS/ML VIAL SQ SCH ×2 (12:26→20:12)
[2018-01-23] MEDS ORDERED: IOHEXOL 350 MG/ML 10 ML VIAL (for RAD DIAG) IVCONTRAST ONE (14:55)
[2018-01-23] MEDS ORDERED: POLYETHYLENE GLYCOL 17 GM PKG PO ONE ×2 (15:45→16:15)
--- NOTE | 2018-01-23 15:47 | RADRPT ---
EXAM DATE/TIME: 01/23/2018 14:44 [facility] COMPARISON: CT ABDOMEN & PELVIS W CONTRAST, October 18, 2016, 19:54. INDICATIONS : Non-diagnostic YARELY's. IV CONTRAST: 98 cc Omnipaque 350 (iohexol) IV RADIATION DOSE: 11.78 CTDIvol (mGy) MEDICAL HISTORY : Cardiovascular disease. Hypertension. Diabetes mellitus type 2.Renal disease. SURGICAL HISTORY : None. ENCOUNTER: Initial ACUITY: 1 day PAIN SCALE: 0/10 LOCATION: Bilateral lower extremity TECHNIQUE: Volumetric scanning was performed using a multi-row detector CT scanner. The data was post processed with a variety of visualization algorithms including full volume maximum intensity projection, multi -planar sliding thin slab reformation, curved planar reformation, and surface rendering techniques. Using automated exposure control and adjustment of the mA and/or kV according to patient size, radiat ion dose was kept as low as reasonably achievable to obtain optimal diagnostic quality images. DICO M format image data is available electronically for review and comparison. FINDINGS: AORTA: Abdominal aorta is normal in caliber without aneurysm or significant flow-limiting stenosis. VISCERAL ARTERIES: Single bilateral renal arteries. Mild stenosis of the right renal artery origin secondary to eccentri c plaque. Celiac and SMA are patent. RUBÉN is patent. RIGHT LEG: INFLOW: Minimal calcified plaque in the origin of the common iliac artery without flow-limiting stenosis. Int ernal iliac artery calcifications. External iliac artery is patent. Common femoral artery is patent. OUTFLOW: Profunda is patent. Mild diffuse SC calcifications without significant focal flow-limiting stenosis. Popliteal artery is patent. RUNOFF: Limited three-vessel runoff with diffuse disease involving the distal posterior tibial artery and bul ky calcification of the proximal peroneal artery. LEFT LEG: INFLOW: Mild stenosis of the common iliac origin secondary to eccentric plaque. Otherwise, no significant shannan ac inflow stenosis. Common femoral artery is patent. OUTFLOW: Profunda is patent. Diffusely calcified SFA with mild stenosis near the adductor canal. Popliteal art newton is diffusely calcified and small caliber distally but patent. RUNOFF: Limited three-vessel runoff to the mid to distal calf. Distal runoff vessels are heavily calcified an d incompletely visualized for definitive evaluation. GENERAL FINDINGS: Visualized lung bases demonstrate trace right pleural effusion. Evaluation of the abdominal viscera i s limited due to arterial phase technique. Liver, spleen, adrenal glands, gallbladder, and pancreas a re grossly unremarkable. Kidneys demonstrate symmetrical enhancement without evidence for radiopaque renal calculi or hydronephrosis. No significant renal mass. The bowel appears unremarkable without ev idence for obstruction. There is very trace free fluid in the abdomen and mild diffuse soft tissue an asarca. Bladder is decompressed but otherwise unremarkable. Prostate and seminal vesicles are within normal l imits. There is a stable benign-appearing lucent lesion in the left iliac crest. CONCLUSION: 1. No significant aortic occlusive disease or iliac inflow stenosis. 2. Diffusely calcified superficial femoral arteries bilaterally without significant outflow stenosis. 3. Limited three-vessel runoff to the foot on the right with diffuse distal posterior tibial disease and bulky calcifications of the proximal peroneal artery. 4. Limited three-vessel runoff to the mid to distal left calf. The distal runoff vessels are heavily calcified and incompletely opacified beyond the mid calf for definitive diagnosis. 5. Trace right pleural effusion with very subtle free fluid in the abdomen and mild diffuse soft tiss ue anasarca in the lower abdomen consistent with mild positive fluid balance. Dl Mazariegos MD on January 23, 2018 at 15:33 Board Certified Radiologist. This report was verified electronically.
[2018-01-23] MEDS ORDERED: BISACODYL 10 MG SUPP RECTAL ONE (16:15)
--- NOTE | 2018-01-23 16:41 | HHI.PR ---
Subjective Remarks Nursing denies any deterioration since last night. Denies any shortness of breath. no foot pain. Objective Vital Signs Date Time Temp Pulse Resp B/P (MAP) Pulse Ox O2 Delivery O2 Flow Rate FiO2 01/23/18 15:56 59 01/23/18 12:00 97.2 58 18 103/67 (79) 100 01/23/18 10:32 98 Nasal Cannula 01/23/18 08:00 97.4 60 16 102/62 (75) 99 01/23/18 07:39 59 01/23/18 04:00 98.1 63 20 114/77 (89) 98 01/23/18 04:00 66 01/23/18 00:00 97.6 61 20 108/67 (81) 99 01/23/18 00:00 61 01/22/18 20:33 97.5 64 18 110/66 (81) 100 01/22/18 19:59 73 I/O 01/22/18 01/22/18 01/22/18 01/23/18 01/23/18 01/23/18 07:00 15:00 23:00 07:00 15:00 23:00 Intake Total 240 ml 720 ml 480 ml Output Total 750 ml Balance -510 ml 720 ml 480 ml Intake Oral 240 ml 720 ml 480 ml Output Urine Total 750 ml # Voids 1 4 8 Result Diagram: 01/21/18 0804 01/23/18 0630 Objective Remarks Lying in bed, clear lungs bilaterally, no crackles, unlabored breathing, no cyanosis sitting in bed, right foot in gauze dressing A/P Assessment and Plan 53 y/o male with a history of DM, CAD, diabetic neuropathy, CHF on heart transplant list, multiple toe amputations presented to the ED with complaints of shortness of breath and fluid overload. Acute on chronic systolic CHF -Significantly improved, stopping lasix in light of CHF, may resume low dose lasix when more tolerable ANDREI - giving small bolus in light of CHF Diabetic foot infection with + wound cultures -CTA showing no disease worthy of intervention per vascular surgery - cleared for surgery. podiatry anticipates ray amputation. I am ordering MRI w/o contrast given impaired RF for now per radiology rec. making NPO after midnight for now Diabetes, chronic, currently uncontrolled likely due to foot infection -Accu-Cheks with sliding scale insulin -Diabetic diet -Continue home long-acting insulin DVT prophylaxis: Heparin David Hansen MD Jan 23, 2018 16:41
[2018-01-23] MEDS ORDERED: SODIUM CHLOR 0.9% 250 ML INJ 250 ML IV ONE (16:45)
--- NOTE | 2018-01-23 16:52 | PD.CAR.PN ---
CVT Progress Note Subjective/Hospital Course: Patient evaluated Full consult dictated Appropriate studies ordered Will follow El Singh 01/23/2018 Patient with distal gangrene and peripheral vascular disease long-standing diabetes mellitus CTA with runoff confirms the clinical findings on physical exam Patient has good inflow and patent vessels to the level of trifurcation. At the level of trifurcation vessels are calcified partially occluded and segmented all the way down to the feet This is a classic no unreconstructable small vessel disease of diabetics and no vascular intervention endovascular or open is indicated or appropriate We will proceed with podiatry surgery and given the blood flow this should heal adequately Objective: Vital Signs Date Time Temp Pulse Resp B/P (MAP) Pulse Ox O2 Delivery O2 Flow Rate FiO2 01/23/18 15:56 59 01/23/18 12:00 97.2 58 18 103/67 (79) 100 01/23/18 10:32 98 Nasal Cannula 01/23/18 08:00 97.4 60 16 102/62 (75) 99 01/23/18 07:39 59 01/23/18 04:00 98.1 63 20 114/77 (89) 98 01/23/18 04:00 66 01/23/18 00:00 97.6 61 20 108/67 (81) 99 01/23/18 00:00 61 01/22/18 20:33 97.5 64 18 110/66 (81) 100 01/22/18 19:59 73 Labs: Laboratory Tests Test 01/23/18 06:30 Creatinine 1.67 MG/DL (0.60-1.30) Estimat Glomerular Filtration Rate 43 ML/MIN (>89) Result Diagram: 01/21/18 0804 01/23/18 0630 (1) Cardiomyopathy (2) Chest pain (3) CHF exacerbation Carlos Hayward MD Jan 23, 2018 16:52
[2018-01-23] MEDS ORDERED: GADODIAMIDE PF 287 MG/ML 20 ML VIAL (for RAD MRI) IVCONTRAST ONE (19:02)
--- NOTE | 2018-01-23 19:49 | RADRPT ---
EXAM DATE/TIME: 01/23/2018 18:35 [facility] COMPARISON: No previous studies available for comparison. INDICATIONS : Osteomyelitis. CONTRAST: 17 cc Omniscan (gadodiamide) IV MEDICAL HISTORY : Diabetes mellitus type 2. Hypertension. SURGICAL HISTORY : Left arm, left foot partial amputation and right toe amputation. ENCOUNTER: Subsequent ACUITY: 4-6 months PAIN SCORE: 0/10 LOCATION: Right foot. TECHNIQUE: Multiplanar, multisequence MRI examination was performed without contrast and after the intravenous a dministration of gadolinium. FINDINGS: Patient has had previous amputation of the first 4 toes. There is hammertoe deformity of the remainin g fifth toe. There is diffuse edema and swelling of the stump, especially overlying the first metatar denice head and adjacent to the fifth metatarsophalangeal joint. Marrow edema and patchy abnormal T1 signal involves the distal 2.5 cm of the first metatarsal. Marrow edema and abnormal T1 signal involves the distal 2.0 cm of the fifth metatarsal. There is jaswinder a and mild patchy cortical irregularity of the little toe phalanges. No osteomyelitis of other bones, including the second, third and fourth metatarsals. There is no soft tissue abscess. Diffuse edema is present. CONCLUSION: 1. Osteomyelitis distally of the first and fifth metatarsals as above. Also probably patchy osteomyel itis within the phalanges of the little toe. The other toes have been previously amputated. 2. No abscess. Clifford Montaño MD on January 23, 2018 at 19:44 Board Certified Radiologist. This report was verified electronically.
--- NOTE | 2018-01-23 21:42 | PD.POD ---
Subjective Podiatric Problems Right foot infection, likely osteomyelitis 5th metatarsal Past Med/Surg/Social History Past Medical History Endocrine: REPORTS HX OF: Diabetes mellitus Cardiovascular: REPORTS HX OF: Hypertension Musculoskeletal: REPORTS HX OF: Other musculoskeletal hx Past Surgical History Breast: DENIES HX OF: Mastectomy, bilateral, Mastectomy, left Social History Smoking Status: Former Smoker Objective Vital Signs Vital Signs Date Time Temp Pulse Resp B/P (MAP) Pulse Ox O2 Delivery O2 Flow Rate FiO2 01/23/18 20:49 57 97/60 (72) 01/23/18 16:00 97.0 58 16 105/68 (80) 100 01/23/18 15:56 59 01/23/18 12:00 97.2 58 18 103/67 (79) 100 01/23/18 10:32 98 Nasal Cannula 01/23/18 08:00 97.4 60 16 102/62 (75) 99 01/23/18 07:39 59 01/23/18 04:00 98.1 63 20 114/77 (89) 98 01/23/18 04:00 66 01/23/18 00:00 97.6 61 20 108/67 (81) 99 01/23/18 00:00 61 Coded Allergies: amoxicillin (Verified Allergy, Mild, Hives, 01/20/18) oxycodone (Verified Allergy, Mild, Hives, 01/20/18) Exam-Podiatry Remarks Right foot with ulceration to bone to lateral/plantar 5th metatarsal head area with purulence and malodor. 5th toe is only digit intact to right foot. Edema diffusely to foot. Minimal tenderness. Left foot with proximal foot amputation, healed. Assessment & Plan A/P Right foot infection, likely osteomyelitis 5th metatarsal To OR tomorrow evening for left partial 5th ray amputation and bone biopsy NPO after breakfast tomorrow Sue Cheng DPM Jan 23, 2018 21:42
[2018-01-24] VITALS (7 sets, daily range): BP systolic 95–125; BP diastolic 57–73; PULSE 56–61; RESP 16–20; TEMP 97.4–97.8; O2SAT 98–100
[2018-01-24] MEDS: MORPHINE SULFATE 4 MG/ML INJ IV PUSH PRN ×7 (00:49→23:40)
[2018-01-24] MEDS: SODIUM CHLORIDE 0.9% FLUSH 10 ML FLUSH IV FLUSH PRN ×2 (00:50→03:51)
[2018-01-24] MEDS ORDERED: PHARMACY ORDERED LAB ONE (02:45)
[2018-01-24] MEDS ORDERED: METOPROLOL TARTRATE 25 MG TAB PO PRN (06:30)
[2018-01-24] MEDS ORDERED: POVIDONE IODINE 5% (ANTISEPSIS KIT) 4 APPLICATIONS EACH NARE PRN (06:30)
[2018-01-24] MEDS ORDERED: SODIUM CHLORID 0.9% 500 ML IV PRN (06:30)
[2018-01-24] MEDS ORDERED: LACTATED RINGER'S 1000 ML IV PRN (06:30)
[2018-01-24] MEDS ORDERED: CHLORHEXIDINE GLUCONATE 2 % 1 PACK (2 CLOTHS) TOPICAL PRN (06:30)
[2018-01-24] MEDS: amLODIPine BESYLATE 5 MG TAB PO SCH (07:52)
[2018-01-24] MEDS: LISINOPRIL 5 MG TAB PO SCH (07:54)
[2018-01-24] MEDS: ASPIRIN 81 MG CHEW TAB CHEW SCH (07:54)
[2018-01-24] MEDS: SODIUM CHLORIDE 0.9% FLUSH 10 ML FLUSH IV FLUSH SCH ×2 (07:54→21:00)
[2018-01-24] MEDS: DOCUSATE SODIUM 50 MG/SENNA 8.6 MG TAB PO SCH ×2 (07:54→21:00)
[2018-01-24] MEDS: CARVEDILOL 12.5 MG TAB PO SCH ×2 (07:54→21:00)
[2018-01-24] MEDS: POTASSIUM CHLORIDE 25 MEQ EFFERVESCENT TAB PO SCH (07:55)
[2018-01-24] MEDS: FOLIC ACID 1 MG TAB PO SCH (07:55)
[2018-01-24] MEDS: ATORVASTATIN 10 MG TAB PO SCH (07:55)
[2018-01-24] MEDS: INSULIN ASPART SUPPLEMENTAL SCALE SQ SCH ×4 (08:00→21:00)
[2018-01-24] MEDS: INSULIN DETEMIR 100 UNITS/ML VIAL SQ SCH (08:04)
[2018-01-24] MEDS: ONDANSETRON HCL 4 MG/2 ML VIAL IVP PRN (08:37)
[2018-01-24] MEDS: LEVOFLOXACIN 500 MG PREMIX INJ 100 ML IV SCH (08:37)
[2018-01-24] MEDS ORDERED: POLYETHYLENE GLYCOL 17 GM PKG PO SCH (09:00)
[2018-01-24] MEDS: POLYETHYLENE GLYCOL 17 GM PKG PO SCH (09:00)
[2018-01-24] MEDS: HEPARIN SODIUM - SQ 10,000 UNITS/ML VIAL SQ SCH ×2 (09:00→21:00)
[2018-01-24 09:39] LABS: BICARBONATE 18.4 MEQ/L (21.0-32.0); CALCIUM 8.8 MG/DL (8.5-10.1); CREATININE 1.92 MG/DL (0.60-1.30)
--- NOTE | 2018-01-24 11:27 | HHI.PR ---
Subjective Remarks Nursing denies any deterioration since last night. Denies any shortness of breath. no foot pain. Objective Vital Signs Date Time Temp Pulse Resp B/P (MAP) Pulse Ox O2 Delivery O2 Flow Rate FiO2 01/24/18 08:00 97.8 61 20 99/62 (74) 98 01/24/18 04:00 97.8 61 18 125/73 (90) 99 01/24/18 03:47 61 01/24/18 00:00 97.4 60 20 97/64 (75) 99 01/23/18 23:45 58 01/23/18 20:49 57 97/60 (72) 01/23/18 20:06 59 01/23/18 20:00 97.4 61 20 100/63 (75) 98 01/23/18 16:00 97.0 58 16 105/68 (80) 100 01/23/18 15:56 59 01/23/18 12:00 97.2 58 18 103/67 (79) 100 I/O 01/23/18 01/23/18 01/23/18 01/24/18 01/24/18 01/24/18 07:00 15:00 23:00 07:00 15:00 23:00 Intake Total 480 ml 1210 ml Output Total 1800 ml Balance 480 ml -590 ml Intake Oral 480 ml 960 ml IV Total 250 ml Output Urine Total 1800 ml # Voids 8 # Bowel Movements 0 Result Diagram: 01/21/18 0804 01/24/18 0900 Objective Remarks Lying in bed, clear lungs bilaterally, no crackles, unlabored breathing, no cyanosis sitting in bed, right foot in gauze dressing A/P Assessment and Plan 53 y/o male with a history of DM, CAD, diabetic neuropathy, CHF on heart transplant list, multiple toe amputations presented to the ED with complaints of shortness of breath and fluid overload. Acute on chronic systolic CHF -Continue beta-archie, holding AARON inhibitor and Lasix in light of worsening ANDREI. Has lifevest. Worsening AK I -Despite one-time bolus of 250 cc of fluids yesterday and having his Lasix held , it is still worsening. He did get contrast yesterday with CTA and also with MRI even though I specifically ordered MRI without contrast. Apparently it was modified afterwards to MRI with contrast. Consulting nephrology. Per CTA kidneys are wnl. Have to be very judicious with IV fluids given severe systolic heart failure requiring lifeVest. holding aaron and lasix for now. Diabetic foot infection with + wound cultures -Citrobacter cultures positive, MRI showing osteo; Surgery planned for today per podiatry Diabetes, chronic, currently uncontrolled likely due to foot infection -Accu-Cheks with sliding scale insulin -Diabetic diet -Continue home long-acting insulin DVT prophylaxis: Heparin Addendum: RN paged sugar right at 70; stopping detemir, instructed to proceed with D5 1/2 NS throughout surgery and afterwards if sugars <150, continue SS. Can discontinue D5 if BG >150. Nearing hypoglycemia likely 2/2 significant ANDREI. Should be stable on LDSS. David Hansen MD Jan 24, 2018 11:27
[2018-01-24] MEDS ORDERED: PHENYLEPHRINE HCL 10 MG/ML VIAL IV ONE (12:00)
[2018-01-24] MEDS ORDERED: GLYCOPYRROLATE 1 MG/5 ML SYRINGE IV PUSH ONE (12:00)
[2018-01-24] MEDS ORDERED: ONDANSETRON HCL 4 MG/2 ML VIAL IV PUSH ONE (12:00)
[2018-01-24] MEDS ORDERED: PROPOFOL 200 MG/20 ML AMP IV ONE (12:00)
[2018-01-24] MEDS ORDERED: LIDOCAINE HCL 1% PF 5 ML SYRINGE OTHER ONE (12:00)
[2018-01-24] MEDS ORDERED: ePHEDrine/NS 25 MG/5 ML SYRINGE IV ONE (12:00)
[2018-01-24] MEDS ORDERED: ROCURONIUM INJ 50 MG/5 ML SYRINGE IV PUSH ONE (12:00)
[2018-01-24] MEDS ORDERED: PHENYLEPH/NS 1000 MCG/10 ML SYR IV ONE (12:00)
--- NOTE | 2018-01-24 17:55 | MB ---
cc: Geo Bee MD DATE OF CONSULT: REASON FOR CONSULTATION: Acute kidney injury with elevated BUN and creatinine. HISTORY OF PRESENT ILLNESS: This is a 53-year-old male with a past medical history of diabetes mellitus, which is longstanding, history of recent acute kidney injury, ischemic heart disease, congestive heart failure with history of being on heart transplant list, came to the hospital with complaint of right lower extremity cellulitis and shortness of breath. I was called to see the patient because of elevated BUN and creatinine. The patient has a history of acute kidney injury when he was here end of October, and his creatinine improved and went down to 1.1, 1.2 and that is what he came in with, and now the creatinine is 1.6 and gone up to 1.9. The patient has been diagnosed with a right foot infection and followed by the podiatry and also seen by the vascular surgery, and he is supposed to go for surgery now with left plantar fifth ray amputation and bone biopsy. The patient is n.p.o. at present. Vascular surgeon has seen the patient, and impression was that the blood flow is good and the wound should heal adequately. The patient has some nausea today, but there is no vomiting. There is no history of diarrhea. No dysuria or hematuria. The patient was also seen by cardiology for his cardiomyopathy, and the impression was to optimize medically before the surgery. During this admission, the patient has been getting vancomycin. The last dose was given yesterday morning and then it was stopped, and currently he is on Levaquin. Potassium is on the lower side, and the patient also has been getting potassium but now it is 5.0. PAST MEDICAL HISTORY: Hypertension, ischemic heart disease, congestive heart failure, diabetes mellitus, history of acute kidney injury. PAST SURGICAL HISTORY: Multiple toe amputations, spinal surgery, left forearm surgery. REVIEW OF SYSTEMS: Denies any headache, dizziness or blurring of vision. He has no history of fever. There is mild nausea. There is no vomiting. His breathing is much better. No chest pain. No palpitations. No history of diarrhea. No dysuria, hematuria or difficulty in passing urine. SOCIAL HISTORY: Stopped smoking in September 2017. Occasionally used marijuana. There is no history of alcoholism. FAMILY HISTORY: Noncontributory. ALLERGIES: AMOXICILLIN AND OXYCODONE. MEDICATIONS: Currently, he is on following medications: Mariam-Colace 1 tablet b.i.d., Levemir 28 units b.i.d., Norvasc 5 mg once a day, aspirin 81 mg daily, Lipitor 10 mg once a day, folic acid 1 mg daily, 25 mEq daily, MiraLax 17 grams daily, heparin 5000 units subQ q.12 hours, Coreg 25 mg q.12 hours, Levaquin 500 mg IV q.24 hours, insulin as per sliding scale, Zofran as needed, morphine as needed, Lopressor as needed. On examination, patient awake, alert. He is not in acute distress. His last blood pressure is 95/62. Temperature is 97.7. Pulse is around 58-61. Oxygen saturation 99% to 100% on room air. HEENT: Pupils are mid constricted. Nonicteric sclerae. Conjunctivae normal. NECK: Supple. JVD is not elevated. LUNGS: The patient has bilateral good air entry with occasional wheezing. HEART: S1, S2. Regular rhythm. ABDOMEN: Soft, lax. There is no tenderness. Bowel sounds positive. EXTREMITIES: Reveals mild edema in the legs. Right foot is covered with a dressing. INVESTIGATIONS: WBC count is 7.0, hemoglobin 10.9, platelet count of 225. Sodium 127, potassium 5.0, chloride 97, bicarb 18.4, BUN 35, creatinine 1.9. Calcium is 8.8. INR is 1.2. Last vanco level was 23.7; this was today in the morning. Wound culture growing Providencia and Citrobacter. IMAGING STUDY: The patient has a CTA done yesterday, which shows that he has no significant aortic occlusive disease, diffuse calcified superficial femoral arteries bilaterally, heavily calcified distal vessels, trace right pleural effusion. MRI of the foot was done, and it shows osteomyelitis of the distal fifth and first metatarsal. ASSESSMENT AND PLAN: 1. Osteomyelitis of the foot. 2. Acute kidney injury. 3. Diabetes mellitus. 4. History of congestive heart failure. 5. Hyponatremia. 6. Anemia. Patient has acute kidney injury and also has hyponatremia. His creatinine started going up from yesterday morning, and he had a CTA also done yesterday, so the differential diagnosis for acute kidney injury will be either ATN from the vancomycin or from the infection or could be interstitial nephritis. At present, he has been nonoliguric. Vanco has been stopped. His sodium is low because of his cardiac disease most likely. I will get the ultrasound of the kidneys. Check the urine sodium and eosinophils. Avoid any nephrotoxins. Follow the urine output and the BUN and creatinine. Thank you for the consultation. MD SAÚL La/PASCUAL , 05:14 PM , 05:54 PM [id number]
[2018-01-24] MEDS ORDERED: DEXT 5%-NACL 0.45% 1000 ML INJ 1,000 ML IV SCH (19:00)
[2018-01-24] MEDS ORDERED: BUPIVACAINE HCL PF 0.5% 30 ML VIAL ONE (19:43)
[2018-01-24] MEDS ORDERED: SUGAMMADEX SODIUM 200 MG/2 ML VIAL IV PUSH ONE (20:52)
[2018-01-24] MEDS ORDERED: DO NOT ADM ANY ANTICOAGULANT DRUGS PRN (21:30)
--- NOTE | 2018-01-24 21:30 | HHI.PR ---
Immediate Post Op Note Procedure Date: Jan 24, 2018 Pre Op Diagnosis: Osteomyelitis right 5th metatarsal, with chronic ulcer Post Op Diagnosis: Same Surgeon: Sue Cheng DPM Chemical Compounder(s): Staff Procedure: Right foot partial 5th ray amputation with bone biopsy Findings: Consistent with diagnosis. Right foot with 5th toe only digit remaining. Plantar lateral ulceration at 5th metatarsal head area with necrotic tissue. Incision made encompassing 5th digit with excision of ulceration and linear proximal incision to midshaft 5th metatarsal where it was transected and specimen sent as partial 5th ray right foot to pathology. Bone from residual 5th metatarsal sent as biopsy. Culture taken followed by irrigation with 3L normal saline. No further necrotic or infected tissue remained within wound. Primary closure with 2-0 nylon suture followed by dressing with xeroform, 4x4 abd, cast padding, kay. Nonweightbearing right foot. Await bone biopsy to determine antibiotics Additional Information: n/a Complications: None Specimen(s) removed: 1. partial 5th ray right foot 2. residual 5th metatarsal bone for biopsy 3. culture right foot Estimated blood loss: 20mL Anesthesia: General, Local (10mL 0.5% marcaine plain) Drains: None IVF Tourniquet time (min at mmHg) n/a Patient to: PACU Patient Condition: Good Date/Time of Procedure: SEE SURGICAL CARE RECORD Sue Cheng DPM Jan 24, 2018 21:30
--- NOTE | 2018-01-24 23:41 | RADRPT ---
EXAM DATE/TIME: 01/24/2018 21:52 [facility] COMPARISON: MRI FOOT RIGHT W & W/O CONTRAST, January 23, 2018, 18:35. INDICATIONS : Post operative for partial amuptation. MEDICAL HISTORY : Diabetes mellitus type II. Hypertension Hypercholesterolemia. SURGICAL HISTORY : None. ENCOUNTER: Initial ACUITY: 1 day PAIN SCORE: Non-responsive. LOCATION: Right foot. FINDINGS: Interval resection distally of the fifth metatarsal. 4.3 cm of the base and proximal shaft of the bon e remain and appear normal. Mild patchy cortical and trabecular lucency seen of the head of the first metatarsal. CONCLUSION: Slightly greater than half of the distal fifth metatarsal has been resected in the interim. No eviden ce of an acute complication. Clifford Monatño MD on January 24, 2018 at 23:37 Board Certified Radiologist. This report was verified electronically.
[2018-01-25] VITALS (9 sets, daily range): BP systolic 117–128; BP diastolic 69–77; PULSE 60–74; RESP 16–18; TEMP 91.3–97.7; O2SAT 96–100
[2018-01-25] MEDS: MORPHINE SULFATE 4 MG/ML INJ IV PUSH PRN ×7 (02:23→23:08)
[2018-01-25 08:23] LABS: BICARBONATE 20.5 MEQ/L (21.0-32.0); CALCIUM 8.3 MG/DL (8.5-10.1); CREATININE 1.94 MG/DL (0.60-1.30); RANDOM VANCOMYCIN 15.7 COMMENT
[2018-01-25] MEDS ORDERED: VANCOMYCIN INJ 1,250 MG in SODIUM CHLOR 0.9% 250 ML INJ 250 ML IV ONE ×2 (09:00→11:00)
[2018-01-25] MEDS: INSULIN ASPART SUPPLEMENTAL SCALE SQ SCH ×4 (09:16→20:00)
[2018-01-25] MEDS: HEPARIN SODIUM - SQ 10,000 UNITS/ML VIAL SQ SCH ×2 (09:16→20:00)
[2018-01-25] MEDS: POLYETHYLENE GLYCOL 17 GM PKG PO SCH (09:17)
[2018-01-25] MEDS: DOCUSATE SODIUM 50 MG/SENNA 8.6 MG TAB PO SCH ×2 (09:17→20:00)
[2018-01-25] MEDS: ATORVASTATIN 10 MG TAB PO SCH (09:17)
[2018-01-25] MEDS: CARVEDILOL 12.5 MG TAB PO SCH ×2 (09:17→19:59)
[2018-01-25] MEDS: SODIUM CHLORIDE 0.9% FLUSH 10 ML FLUSH IV FLUSH SCH ×2 (09:17→19:59)
[2018-01-25] MEDS: ASPIRIN 81 MG CHEW TAB CHEW SCH (09:17)
[2018-01-25] MEDS: FOLIC ACID 1 MG TAB PO SCH (09:17)
[2018-01-25] MEDS: LEVOFLOXACIN 500 MG PREMIX INJ 100 ML IV SCH (09:18)
--- NOTE | 2018-01-25 11:58 | RADRPT ---
EXAM DATE/TIME: 01/25/2018 10:44 [facility] COMPARISON: US KIDNEY/RENAL/BLADDER, November 10, 2017, 16:46. INDICATIONS : Increased BUN/Creatnine. MEDICAL HISTORY : Congestive heart failure. Hypercholesterolemia. Hypertension. Glasses. Neuropathy. Coronary artery di sease. Anticoagulant therapy. Deep vein thrombosis. Gastroesophageal reflux disease. Arthritis. Renal disease. Diabetes. Depression. Anxiety. MRSA. SURGICAL HISTORY : Left arm surgery. Left foot amputation. Right toe amputation. ENCOUNTER: Subsequent ACUITY: 2 days PAIN SCORE: 0/10 LOCATION: Bilateral flank MEASUREMENTS: RIGHT KIDNEY: 12.5 x 6.3 x 5.9 cm LEFT KIDNEY: 13.0 x 4.7 x 5.7 cm FINDINGS: RIGHT KIDNEY: Renal cortex is normal in thickness and echotexture. No hydronephrosis, stone, or mass. There is a trace amount of free fluid identified within Morison's pouch. LEFT KIDNEY: Renal cortex is normal in thickness and echotexture. No hydronephrosis, stone, or mass. BLADDER: Within normal limits given the degree of distension. There is a moderate amount of free fluid identi fied adjacent to the bladder. CONCLUSION: Normal above evaluation of the kidneys and bladder. There is free fluid identified within Cintron's pouch as well as within the pelvis. This may reflect ascites.. Susan Yang MD on January 25, 2018 at 11:55 Board Certified Radiologist. This report was verified electronically.
--- NOTE | 2018-01-25 15:47 | HHI.PR ---
Subjective Remarks c/o right foot pain. Also c/o difficulty urinating. Denies fevers or chills/ Denies cp/sob. Objective Vitals Vital Signs Date Time Temp Pulse Resp B/P (MAP) Pulse Ox O2 Delivery O2 Flow Rate FiO2 01/25/18 12:00 60 01/25/18 12:00 97.6 65 18 117/72 (87) 99 01/25/18 10:00 Room Air 01/25/18 09:00 74 01/25/18 08:00 97.4 65 18 128/77 (94) 96 01/25/18 05:23 99 01/25/18 04:00 91.3 60 16 118/75 (89) 99 01/25/18 03:47 60 01/24/18 23:00 Room Air 01/24/18 22:15 64 16 121/78 (92) 100 Nasal Cannula 2 01/24/18 22:00 64 16 120/79 (93) 100 Nasal Cannula 2 01/24/18 21:45 65 16 119/74 (89) 100 Nasal Cannula 2 01/24/18 21:33 98.0 66 16 126/77 (93) 100 Nasal Cannula 2 01/24/18 17:32 99 21 01/24/18 16:00 97.7 58 20 95/62 (73) 99 01/24/18 16:00 57 I/O 01/24/18 01/24/18 01/24/18 01/25/18 01/25/18 01/25/18 06:59 14:59 22:59 06:59 14:59 22:59 Intake Total 400 ml 860 ml Output Total 520 ml Balance -120 ml 860 ml Intake Oral 0 ml 860 ml Other 400 ml Output Urine Total 500 ml Estimated Blood Loss 20 ml # Voids 0 # Bowel Movements 0 Result Diagram: 01/21/18 0804 01/25/18 0741 Imaging Last Impressions Renal Ultrasound 01/25/18 0000 Signed Impressions: Service Date/Time: Thursday, January 25, 2018 10:44 - CONCLUSION: Normal above evaluation of the kidneys and bladder. There is free fluid identified within Cintron's pouch as well as within the pelvis. This may reflect ascites.. Susan Yang MD Foot X-Ray 01/24/18 0000 Signed Impressions: Service Date/Time: Wednesday, January 24, 2018 21:52 - CONCLUSION: Slightly greater than half of the distal fifth metatarsal has been resected in the interim. No evidence of an acute complication. Clifford Montaño MD Foot MRI 01/23/18 0000 Signed Impressions: Service Date/Time: January 18:35 - CONCLUSION: 1. Osteomyelitis distally of the first and fifth metatarsals as above. Also probably patchy osteomyelitis within the phalanges of the little toe. The other toes have been previously amputated. 2. No abscess. Clifford Montaño MD Aorta w/Runoff CTA 01/23/18 0000 Signed Impressions: Service Date/Time: January 14:44 - CONCLUSION: 1. No significant aortic occlusive disease or iliac inflow stenosis. 2. Diffusely calcified superficial femoral arteries bilaterally without significant outflow stenosis. 3. Limited three-vessel runoff to the foot on the right with diffuse distal posterior tibial disease and bulky calcifications of the proximal peroneal artery. 4. Limited three-vessel runoff to the mid to distal left calf. The distal runoff vessels are heavily calcified and incompletely opacified beyond the mid calf for definitive diagnosis. 5. Trace right pleural effusion with very subtle free fluid in the abdomen and mild diffuse soft tissue anasarca in the lower abdomen consistent with mild positive fluid balance. Dl Mazariegos MD Lower Extremity Ultrasound 01/20/18 1511 Signed Impressions: Service Date/Time: Saturday, January 20, 2018 15:26 - CONCLUSION: 1. No evidence for DVT. 2. Prominent right inguinal lymph nodes are present. Alexis Villalobos MD Chest X-Ray 01/20/18 1404 Signed Impressions: Service Date/Time: Saturday, January 20, 2018 14:26 - CONCLUSION: 1. COPD changes and mild cardiomegaly. Kd Estrada MD Objective Remarks AAox3 nad Clear lungs BL S1S2 RRR, no MRG abdomen obese, tender to palpation of suprapubic region. (+) 1 edema of BL lower extremities Procedures Status post Right foot partial 5th ray amputation with bone biopsy Medications and IVs Current Medications Medications (Trade) Dose Ordered Sig/[place]ville Route Start Time Stop Time Status Last Admin (NS Flush) 2 ml UNSCH PRN IV FLUSH 3/12/18 19:00 01/24/18 03:51 (NS Flush) 2 ml BID IV FLUSH 01/20/18 21:00 01/25/18 09:17 (Tylenol) 650 mg Q4H PRN PO 01/20/18 19:00 (Zofran Inj) 4 mg Q6H PRN IVP 01/20/18 19:00 01/24/18 08:37 (Tylenol) 650 mg Q6H PRN PO 01/20/18 19:00 (Narcan Inj) 0.4 mg UNSCH PRN IV PUSH 01/20/18 19:00 (Mariam-Colace) 1 tab BID PO 01/20/18 21:00 01/25/18 09:17 (NovoLOG SUPPLEMENTAL SCALE) 1 ACHS SLIDING SCALE SQ 01/20/18 21:00 01/25/18 09:16 (Morphine Inj) 2 mg Q3H PRN IV PUSH 01/20/18 20:30 01/24/18 17:54 (Morphine Inj) 4 mg Q3H PRN IV PUSH 01/20/18 20:30 01/25/18 13:02 (Heparin Inj) 5,000 units Q12HR SQ 01/21/18 21:00 01/25/18 09:16 (D50w (Vial) Inj) 50 ml UNSCH PRN IV PUSH 01/20/18 22:30 01/22/18 12:51 (Glucagon Inj) 1 mg UNSCH PRN OTHER 01/20/18 22:30 (Aspirin Chew) 81 mg DAILY CHEW 01/21/18 09:00 01/25/18 09:17 (Lipitor) 10 mg DAILY PO 01/21/18 09:00 01/25/18 09:17 (Coreg) 25 mg Q12HR PO 01/20/18 22:30 01/25/18 09:17 (Folate) 1 mg DAILY PO 01/21/18 09:00 01/25/18 09:17 Pharmacy Profile Note 0 ml @ 0 mls/hr UNSCH OTHER 01/21/18 01:30 (Pill Splitter) 1 ea UNSCH PRN OTHER 01/21/18 16:00 (Miralax) 17 gm DAILY PO 01/24/18 09:00 01/25/18 09:17 Lactated Ringer's 1,000 ml @ 30 mls/hr Q24H PRN IV 01/24/18 06:30 01/27/18 06:29 Sodium Chloride 500 ml @ 30 mls/hr [id number] PRN IV 01/24/18 06:30 01/27/18 06:29 (Lopressor) 25 mg LABORER DEMOLITION PRN PO 01/24/18 06:30 01/27/18 06:29 (Betadine 5% Antisepsis Kit) 1 applic LABORER DEMOLITION PRN EACH NARE 01/24/18 06:30 01/27/18 06:29 (Chlorhexidine 2% Cloth) 3 pack LABORER DEMOLITION PRN TOPICAL 01/24/18 06:30 01/27/18 06:29 Levofloxacin/ Dextrose 100 ml @ 100 mls/hr Q24H IV 01/24/18 09:00 01/25/18 09:18 Dextrose/Sodium Chloride 1,000 ml @ 30 mls/hr Q24H IV 01/24/18 19:00 01/24/18 19:06 Miscellaneous Information ALL NURSING DEPARTME... UNSCH PRN .XX 01/24/18 21:30 01/25/18 21:29 A/P Problem List: (1) CHF exacerbation ICD Code: I50.9 - Heart failure, unspecified Status: Acute Plan: (2) Diabetic foot infection ICD Code: E11.69 - Diabetic foot infection; L08.9 - Local infection of the skin and subcutaneous tissue, unspecified Status: Acute (3) DM (diabetes mellitus) ICD Code: E11.9 - Diabetes mellitus Status: Chronic Assessment and Plan 53 y/o male with a history of DM, CAD, diabetic neuropathy, CHF on heart transplant list, multiple toe amputations presented to the ED with complaints of shortness of breath and fluid overload. CHF exacerbation, acute on chronic Chest x-ray reviewed and shows mild cardiomegaly BMP 2776 -Initially treated with Lasix 40 mg IV twice a day. -BMP in a.m. 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 Diabetic foot infection/osteomyelitis Foot x-ray reviewed and shows right soft tissue swelling ESR 28, CRP 69 -Podiatry consulted. -Patient given 1 dose of Vanco in the ED, pharmacy consult, follow closely patient with history of renal failure while on vancomycin -Wound cultures growing Providencia Rettgeri and Citrobacter Freundii. -Pain management with IV morphine -Foot MRI showed some myelitis distally of the first and fifth metatarsals. -Status post right foot partial fifth ray amputation bone biopsy on 01/24 -Continue IV Levaquin - Consult ID for further recommendations. Diabetes mellitus type II, chronic, -Accu-Cheks with sliding scale insulin -Diabetic diet -Continue home long-acting insulin Hypoglycemia Patient had blood sugar in the 70s on 01/24. Patient started D5 half NS throughout surgery. Patient's blood sugars have remained stable in the 150s. Will discontinue D5. Acute kidney injury Creatinine trended up to 1.67 on 01/23 and continues to trend up, today 1.94. Nephrology consulted. Appreciate recommendations. Renal ultrasound shows normal evaluation of the kidneys and bladder. Suspected ATN from IV vancomycin or from infection, syncytial nephritis also in the differential diagnosis. Vancomycin has been discontinued. Check urine sodium and eosinophils. Continue to monitor BUN and creatinine, history I's and O's and avoid nephrotoxins. Will obtain a Bladder us scan to check for urinary retention - if positive then will place a mobley catheter. DVT prophylaxis: Heparin Discharge Planning Continue to monitor on the medical floor. Discharge pending improvement of patient's renal function. Needs podiatry clearance. 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
--- NOTE | 2018-01-25 16:38 | PD.POD ---
Subjective Podiatric Problems Right foot infection, likely osteomyelitis 5th metatarsal s/p right partial 5th ray resection with bone biopsy 01/24/18 Dr Cheng Past Med/Surg/Social History Past Medical History Endocrine: REPORTS HX OF: Diabetes mellitus Cardiovascular: REPORTS HX OF: Hypertension Musculoskeletal: REPORTS HX OF: Other musculoskeletal hx Past Surgical History Breast: DENIES HX OF: Mastectomy, bilateral, Mastectomy, left Social History Smoking Status: Former Smoker Objective Vital Signs Vital Signs Date Time Temp Pulse Resp B/P (MAP) Pulse Ox O2 Delivery O2 Flow Rate FiO2 01/25/18 15:35 Room Air 01/25/18 12:00 60 01/25/18 12:00 97.6 65 18 117/72 (87) 99 01/25/18 10:00 Room Air 01/25/18 09:00 74 01/25/18 08:00 97.4 65 18 128/77 (94) 96 01/25/18 05:23 99 01/25/18 04:00 91.3 60 16 118/75 (89) 99 01/25/18 03:47 60 01/24/18 23:00 Room Air 01/24/18 22:15 64 16 121/78 (92) 100 Nasal Cannula 2 01/24/18 22:00 64 16 120/79 (93) 100 Nasal Cannula 2 01/24/18 21:45 65 16 119/74 (89) 100 Nasal Cannula 2 01/24/18 21:33 98.0 66 16 126/77 (93) 100 Nasal Cannula 2 01/24/18 17:32 99 21 Coded Allergies: amoxicillin (Verified Allergy, Mild, Hives, 01/20/18) oxycodone (Verified Allergy, Mild, Hives, 01/20/18) Exam-Podiatry Remarks Right foot dressing intact with mild dried bloody strikethrough. No complaint of pain Assessment & Plan A/P Right foot infection, likely osteomyelitis 5th metatarsal s/p right partial 5th ray resection with bone biopsy 01/24/18 Dr Cheng Nonweightbearing right foot Will plan to assess wound and change bandage tomorrow Surgical bone biopsy pending Sue Cheng DPM Jan 25, 2018 16:38
--- NOTE | 2018-01-25 16:59 | HHI.NPPN ---
Subjective Additional Remarks No acute complaints Objective Data Data Vital Signs Date Time Temp Pulse Resp B/P (MAP) Pulse Ox O2 Delivery O2 Flow Rate FiO2 01/25/18 16:39 68 01/25/18 15:35 Room Air 01/25/18 12:00 60 01/25/18 12:00 97.6 65 18 117/72 (87) 99 01/25/18 10:00 Room Air 01/25/18 09:00 74 01/25/18 08:00 97.4 65 18 128/77 (94) 96 01/25/18 05:23 99 01/25/18 04:00 91.3 60 16 118/75 (89) 99 01/25/18 03:47 60 01/24/18 23:00 Room Air 01/24/18 22:15 64 16 121/78 (92) 100 Nasal Cannula 2 01/24/18 22:00 64 16 120/79 (93) 100 Nasal Cannula 2 01/24/18 21:45 65 16 119/74 (89) 100 Nasal Cannula 2 01/24/18 21:33 98.0 66 16 126/77 (93) 100 Nasal Cannula 2 01/24/18 17:32 99 21 -: 01/21/18 0804 01/25/18 0741 Physical Exam General Appearance: Well Developed, Well Nourished, No Acute Distress Throat Throat Exam: Oral Mucosa [place] & Moist Pulmonary Resp Exam: Diminished Breath Sounds Cardiology CV Exam: Regular, Normal Sinus Rhythm Gastrointestinal/Abdomen GI Exam: Soft, Non-Tender, Bowel Sounds Present Integumentary Skin Exam: Dry, Intact Extremeties Extremities Exam: No Edema Neurologic Neuro Exam: Alert, Awake, Oriented, Speech Clear Assessment/Plan Problem List: (1) ANDREI (acute kidney injury) ICD Codes: N17.9 - Acute kidney failure, unspecified Plan: ANDREI with creatinine up to 1.9 today ANDREI likely due to contrast exposure from CTA, vancomycin exposure in setting of infection. Possible interstitial nephritis - urine eosinophils pending Urine Na pending. Continue to monitor at this point. Renal USX noted - normal study, ascites seen. Bladder scan pending - mobley if retention seen. However patient reports he is urinating more today Avoid any nephrotoxins. Follow the urine output and the BUN and creatinine. (2) Amputated toe of left foot ICD Codes: Z89.422 - Amputated toe of left foot Status: Acute Plan: s/p surgery 01/24 Continue to follow with podiatry (3) Toe osteomyelitis, left ICD Codes: M86.9 - Toe osteomyelitis, left Status: Acute Plan: on levaquin, follow with ID (4) DM (diabetes mellitus) ICD Codes: E11.9 - Diabetes mellitus Status: Chronic (5) CHF (congestive heart failure) ICD Codes: I50.9 - Heart failure, unspecified Status: Chronic Plan: continue to monitor Initially given lasix for CHF (6) Hyponatremia ICD Codes: E87.1 - Hypo-osmolality and hyponatremia Plan: due to CHF. 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
--- NOTE | 2018-01-25 18:13 | EKG ---
Date Performed: 01/25/2018 Time Performed: 07:43:48 PTAGE: 53 years EKG: Left axis deviation Nonspecific T-wave changes Since previous tracing, no significant valerio e noted Abnormal ECG PREVIOUS TRACING : 01/21/2018 05.12.13 DOCTOR: Erik Epstein Interpretating Date/Time 01/25/2018 18:13:29
[2018-01-26] VITALS (7 sets, daily range): BP systolic 93–143; BP diastolic 58–78; PULSE 60–67; RESP 16–20; TEMP 97.4–98.4; O2SAT 96–100
[2018-01-26] MEDS: MORPHINE SULFATE 4 MG/ML INJ IV PUSH PRN ×7 (02:35→23:07)
[2018-01-26] MEDS ORDERED: PANTOPRAZOLE SODIUM 40 MG VIAL IV PUSH ONE (03:45)
[2018-01-26] MEDS: INSULIN ASPART SUPPLEMENTAL SCALE SQ SCH ×4 (08:00→20:08)
[2018-01-26] MEDS: LEVOFLOXACIN 500 MG PREMIX INJ 100 ML IV SCH (08:24)
[2018-01-26] MEDS: POLYETHYLENE GLYCOL 17 GM PKG PO SCH (08:24)
[2018-01-26] MEDS: ATORVASTATIN 10 MG TAB PO SCH (08:24)
[2018-01-26] MEDS: HEPARIN SODIUM - SQ 10,000 UNITS/ML VIAL SQ SCH ×2 (08:24→20:07)
[2018-01-26] MEDS: ASPIRIN 81 MG CHEW TAB CHEW SCH (08:25)
[2018-01-26] MEDS: FOLIC ACID 1 MG TAB PO SCH (08:25)
[2018-01-26] MEDS: CARVEDILOL 12.5 MG TAB PO SCH ×2 (08:25→20:07)
[2018-01-26] MEDS: DOCUSATE SODIUM 50 MG/SENNA 8.6 MG TAB PO SCH ×2 (08:25→20:08)
[2018-01-26] MEDS: SODIUM CHLORIDE 0.9% FLUSH 10 ML FLUSH IV FLUSH SCH ×2 (08:26→20:08)
[2018-01-26 10:44] LABS: AUTOMATED NEUTROPHIL # 4.3 TH/MM3 (1.8-7.7); BASOPHIL % 0.6 % (0.0-2.0); EOSINOPHIL # 0.3 TH/MM3 (0-0.4); EOSINOPHIL % 4.8 % (0.0-4.0); HEMATOCRIT 33.3 % (39.0-51.0); HEMOGLOBIN 10.2 GM/DL (13.0-17.0); LYMPH % 15.3 % (9.0-44.0); LYMPHOCYTE # 0.9 TH/MM3 (1.0-4.8); MEAN CELL VOLUME 74.1 FL (80.0-100.0); MEAN CORPUSCULAR HEMOGLOBIN 22.8 PG (27.0-34.0); MEAN CORPUSCULAR HGB CONC 30.8 % (32.0-36.0); MEAN PLATELET VOLUME 8.8 FL (7.0-11.0); MONO % 10.1 % (0.0-8.0); MONOCYTE # 0.6 TH/MM3 (0-0.9); NEUT % 69.2 % (16.0-70.0); PLATELET COUNT 212 TH/MM3 (150-450); RED BLOOD COUNT 4.49 MIL/MM3 (4.50-5.90); RED CELL DISTRIBUTION WIDTH 20.8 % (11.6-17.2); WHITE BLOOD COUNT 6.2 TH/MM3 (4.0-11.0)
[2018-01-26 11:01] LABS: ALBUMIN 2.5 GM/DL (3.4-5.0); AST (GOT) 33 U/L (15-37); BICARBONATE 18.6 MEQ/L (21.0-32.0); BLOOD UREA NITROGEN 28 MG/DL (7-18); CALCIUM 8.9 MG/DL (8.5-10.1); CHLORIDE 101 MEQ/L (98-107); CREATININE 1.76 MG/DL (0.60-1.30); GLOMERULAR FILTRATION RATE 41 ML/MIN (>89); GLUCOSE,RANDOM 134 MG/DL (74-106); MAGNESIUM 1.9 MG/DL (1.5-2.5); SODIUM (NA) 131 MEQ/L (136-145)
[2018-01-26 11:05] LABS: ALKALINE PHOSPHATASE 157 U/L (45-117); ALT (GPT) 38 U/L (12-78); PHOSPHORUS 3.5 MG/DL (2.5-4.9); RANDOM VANCOMYCIN 18.5 COMMENT; TOTAL BILIRUBIN ADULT 0.9 MG/DL (0.2-1.0); TOTAL PROTEIN 7.1 GM/DL (6.4-8.2)
[2018-01-26] MEDS ORDERED: MAGNESIUM HYDROXIDE SUSP 30 ML CUP PO PRN (11:30)
[2018-01-26] MEDS ORDERED: SENNOSIDES 8.6 MG TAB PO PRN (11:30)
[2018-01-26] MEDS ORDERED: LACTULOSE SYRUP 20 GM/30 ML CUP PO PRN (11:30)
[2018-01-26] MEDS ORDERED: BISACODYL 10 MG SUPP RECTAL PRN (11:30)
--- NOTE | 2018-01-26 11:46 | PD.POD ---
Subjective Podiatric Problems Right foot infection, likely osteomyelitis 5th metatarsal s/p right partial 5th ray resection with bone biopsy 01/24/18 Dr Cheng Past Med/Surg/Social History Past Medical History Endocrine: REPORTS HX OF: Diabetes mellitus Cardiovascular: REPORTS HX OF: Hypertension Musculoskeletal: REPORTS HX OF: Other musculoskeletal hx Past Surgical History Breast: DENIES HX OF: Mastectomy, bilateral, Mastectomy, left Social History Smoking Status: Former Smoker Objective Vital Signs Vital Signs Date Time Temp Pulse Resp B/P (MAP) Pulse Ox O2 Delivery O2 Flow Rate FiO2 01/26/18 10:22 64 01/26/18 09:12 Room Air 01/26/18 08:00 98.1 63 20 115/78 (90) 99 01/26/18 04:07 Room Air 01/26/18 04:00 97.4 62 20 143/65 (91) 97 01/26/18 04:00 61 01/26/18 00:00 98.4 65 18 134/72 (92) 96 01/26/18 00:00 63 01/26/18 00:00 Room Air 01/25/18 20:00 97.7 61 18 120/71 (87) 99 01/25/18 20:00 Room Air 01/25/18 20:00 62 01/25/18 18:30 Room Air 01/25/18 16:39 68 01/25/18 16:00 97.4 65 18 120/69 (86) 100 01/25/18 15:35 Room Air 01/25/18 12:00 60 01/25/18 12:00 97.6 65 18 117/72 (87) 99 Coded Allergies: amoxicillin (Verified Allergy, Mild, Hives, 01/20/18) oxycodone (Verified Allergy, Mild, Hives, 01/20/18) Assessment & Plan A/P Right foot infection, likely osteomyelitis 5th metatarsal s/p right partial 5th ray resection with bone biopsy 01/24/18 Dr Cheng Nonweightbearing right foot Bandage changed today and nylon suture intact with no dehiscence. Should not need home health care for bandage changes, as dry sterile bandage that is intact at discharge can remain x 1 week if kept clean/dry. Wrote for nursing to change bandage every other day. Surgical bone biopsy pending from right residual 5th metatarsal. Sue Cheng DPEnzo Jan 26, 2018 11:46
[2018-01-26] MEDS ORDERED: VANCOMYCIN INJ 1,250 MG in SODIUM CHLOR 0.9% 250 ML INJ 250 ML IV ONE (13:00)
[2018-01-26] MEDS ORDERED: PANTOPRAZOLE SOD 40 MG DELAYED RELEASE TAB PO ONE (16:00)
--- NOTE | 2018-01-26 16:07 | MB ---
cc: Darek Alves MD DATE OF CONSULT: 01/26/2018 REQUESTING PHYSICIAN: Maxx Sanders MD REASON FOR CONSULTATION: Right foot osteomyelitis. Status post amputation. Please advise on antibiotics. HISTORY OF PRESENT ILLNESS: This is a 53-year-old white male who has had history of osteomyelitis of the foot in the past. The patient was evaluated in the emergency department on 01/20 when he presented with shortness of breath. He was also noted to be complaining of worsening wound at the lateral aspect of the right foot. He was noted to have pain at the level of 9-10/10. He was evaluated for pain at the right foot. A wound culture was taken at the right lateral aspect and it came back with Providencia and Citrobacter, both with moderate growth. The patient was evaluated by podiatry. MRI of the foot was performed and it showed osteomyelitis distally of the first and fifth metatarsals and patchy osteomyelitis within the phalanges of the little toe. The patient had prior amputation of the remaining toes on the right foot. He underwent surgical resection of the fifth ray and bone biopsy was performed and specimen was sent to pathology. Culture taken at surgery as rare growth of normal skin jonathan. Pathology result is not yet available. The patient has a history of renal failure secondary to antibiotics. He was started on vancomycin and received 1 dose so far. His renal function has improved over what it was in 11/2017. On admission, his estimated GFR was 69 and creatinine was 1.1. Today's estimated GFR is 41 and creatinine is 1.76. He states that he was having difficulty passing the urine yesterday. However, today, it is improved. His only complaint currently pain in the right foot. He has no fevers and his white count is normal. PAST MEDICAL HISTORY: Diabetes mellitus, congestive heart failure, coronary artery disease, left forefoot amputation, prior resection of toes on the right foot except for toe #5, gastroesophageal reflux disease, history of DVT of the lower extremity, ischemic heart disease, left forearm surgery. The patient is on the transplant list for a cardiac transplant. ALLERGIES: AMOXICILLIN AND OXYCODONE. MEDICATIONS: 1. Levaquin. 2. MiraLax. 3. Protonix. 4. Mariam-Colace. 5. Aspirin. 6. Lipitor. 7. Folic acid. 8. Coreg. 9. Morphine. SOCIAL HISTORY: No tobacco use. The patient quit smoking cigarettes in 08/2017. Occasional marijuana. No alcohol. FAMILY HISTORY: Noncontributory. REVIEW OF SYSTEMS: Significant for pain in the right foot. Otherwise, negative on a 10-point review. PHYSICAL EXAMINATION: GENERAL: He is a well-developed male who is in no acute distress. He is awake, alert and oriented. VITAL SIGNS: Temperature 97.7, BP 119/76, respirations 20, heart rate 63. HEAD, EARS, EYES, NOSE AND THROAT: Extraocular movements grossly intact. Pupils reactive to light. No icterus. Oropharynx moist, mucosa without lesions. NECK: Supple without adenopathy. LUNGS: Clear breath sounds, bilateral. HEART: Regular S1 and S2. No murmurs, rubs or gallops. ABDOMEN: Bowel sounds present. Soft, nontender. RECTAL: Not performed. EXTREMITIES: The right foot has a surgical dressing on in place. The patient is status post amputation of the fifth digit. SKIN: No diffuse rash. NEUROLOGIC: No gross focal findings. PSYCHIATRIC: The patient is calm and cooperative. LABORATORY DATA: WBC 6.2, platelets 212, hemoglobin 10.2. Sedimentation rate 28. Creatinine 1.76, BUN 28, sodium 131. LFTs normal. IMPRESSION: 1. Osteomyelitis involving fifth digit of the right foot. 2. Status post right partial fifth ray amputation. Preop culture had growth of Citrobacter and Providencia. 3. Acute kidney disease. The patient is known to have prior acute insult to the kidney back in 11/2017. RECOMMENDATIONS: 1. Discontinue and avoid future vancomycin use. The patient has culture showing only gram-negative bacteria and vancomycin is not necessary at this time. 2. Continue Levaquin and follow the pathology of the bone biopsy. If he has only positive culture for the 2 organisms previously recovered on 01/20, he can be switched to oral Levaquin and treat for a 1 week. 3. Because of his renal dysfunction, if he has any residual osteo based on the pathology, consideration should be given to additional surgery to get to healthy noninfected bone. Thank you for this consultation. The progress will be monitored. MD JACKIE Lara/VALE Farrell: 01/26/2018, 02:45 PM , 04:04 PM JACQUELINE
--- NOTE | 2018-01-26 17:14 | HHI.PR ---
Subjective Remarks Deferred entry, patient seen earlier at 11:24 AM. The patient states he is constipated and also complaining of heartburn. Denies chest pain or shortness of breath. Creatinine is trending down. Objective Vitals Vital Signs Date Time Temp Pulse Resp B/P (MAP) Pulse Ox O2 Delivery O2 Flow Rate FiO2 01/26/18 16:00 97.5 67 20 93/58 (70) 100 01/26/18 14:04 Room Air 01/26/18 12:00 63 01/26/18 12:00 97.7 64 20 119/76 (90) 100 01/26/18 10:22 64 01/26/18 09:12 Room Air 01/26/18 08:00 98.1 63 20 115/78 (90) 99 01/26/18 04:07 Room Air 01/26/18 04:00 97.4 62 20 143/65 (91) 97 01/26/18 04:00 61 01/26/18 00:00 98.4 65 18 134/72 (92) 96 01/26/18 00:00 63 01/26/18 00:00 Room Air 01/25/18 20:00 97.7 61 18 120/71 (87) 99 01/25/18 20:00 Room Air 01/25/18 20:00 62 01/25/18 18:30 Room Air I/O 01/25/18 01/25/18 01/25/18 01/26/18 01/26/18 01/26/18 07:00 15:00 23:00 07:00 15:00 23:00 Intake Total 860 ml 240 ml 240 ml Output Total 500 ml Balance 860 ml -260 ml 240 ml Intake Oral 860 ml 240 ml 240 ml Output Urine Total 500 ml # Voids 0 5 # Bowel Movements 0 0 Result Diagram: 01/26/18 0820 01/26/18 0820 Imaging Last 72 hours Impressions Renal Ultrasound 01/25/18 0000 Signed Impressions: Service Date/Time: Thursday, January 25, 2018 10:44 - CONCLUSION: Normal above evaluation of the kidneys and bladder. There is free fluid identified within Cintron's pouch as well as within the pelvis. This may reflect ascites.. Susan Yang MD Foot X-Ray 01/24/18 0000 Signed Impressions: Service Date/Time: Wednesday, January 24, 2018 21:52 - CONCLUSION: Slightly greater than half of the distal fifth metatarsal has been resected in the interim. No evidence of an acute complication. Clifford Montaño MD Objective Remarks AAox3 nad Clear lungs BL S1S2 RRR, no MRG abdomen obese, tender to palpation of suprapubic region. (+) 1 edema of BL lower extremities Procedures Status post Right foot partial 5th ray amputation with bone biopsy Medications and IVs Current Medications Medications (Trade) Dose Ordered Sig/[place] Route Start Time Stop Time Status Last Admin (NS Flush) 2 ml UNSCH PRN IV FLUSH 01/20/18 19:00 01/24/18 03:51 (NS Flush) 2 ml BID IV FLUSH 01/20/18 21:00 01/26/18 08:26 (Tylenol) 650 mg Q4H PRN PO 01/20/18 19:00 (Zofran Inj) 4 mg Q6H PRN IVP 01/20/18 19:00 01/24/18 08:37 (Tylenol) 650 mg Q6H PRN PO 01/20/18 19:00 (Narcan Inj) 0.4 mg UNSCH PRN IV PUSH 01/20/18 19:00 (NovoLOG SUPPLEMENTAL SCALE) 1 ACHS SLIDING SCALE SQ 01/20/18 21:00 01/25/18 09:16 (Morphine Inj) 2 mg Q3H PRN IV PUSH 01/20/18 20:30 01/24/18 17:54 (Morphine Inj) 4 mg Q3H PRN IV PUSH 01/20/18 20:30 01/26/18 15:23 (Heparin Inj) 5,000 units Q12HR SQ 01/21/18 21:00 01/26/18 08:24 (D50w (Vial) Inj) 50 ml UNSCH PRN IV PUSH 01/20/18 22:30 01/22/18 12:51 (Glucagon Inj) 1 mg UNSCH PRN OTHER 01/20/18 22:30 (Aspirin Chew) 81 mg DAILY CHEW 01/21/18 09:00 01/26/18 08:25 (Lipitor) 10 mg DAILY PO 01/21/18 09:00 01/26/18 08:24 (Coreg) 25 mg Q12HR PO 01/20/18 22:30 01/26/18 08:25 (Folate) 1 mg DAILY PO 01/21/18 09:00 01/26/18 08:25 (Pill Splitter) 1 ea UNSCH PRN OTHER 01/21/18 16:00 (Miralax) 17 gm DAILY PO 01/24/18 09:00 01/26/18 08:24 Lactated Ringer's 1,000 ml @ 30 mls/hr Q24H PRN IV 01/24/18 06:30 01/27/18 06:29 Sodium Chloride 500 ml @ 30 mls/hr [id number] PRN IV 01/24/18 06:30 01/27/18 06:29 (Lopressor) 25 mg BREAD SLICER MACHINE PRN PO 01/24/18 06:30 01/27/18 06:29 (Betadine 5% Antisepsis Kit) 1 applic BREAD SLICER MACHINE PRN EACH NARE 01/24/18 06:30 01/27/18 06:29 (Chlorhexidine 2% Cloth) 3 pack BREAD SLICER MACHINE PRN TOPICAL 01/24/18 06:30 01/27/18 06:29 Levofloxacin/ Dextrose 100 ml @ 100 mls/hr Q24H IV 01/24/18 09:00 01/26/18 08:24 (Protonix) 40 mg DAILY PO 01/27/18 09:00 (Mariam-Colace) 1 tab BID PO 01/26/18 21:00 (Milk Of Magnesia Liq) 30 ml Q12H PRN PO 01/26/18 11:30 01/26/18 15:40 (Senokot) 17.2 mg Q12H PRN PO 01/26/18 11:30 01/26/18 15:40 (Dulcolax Supp) 10 mg DAILY PRN RECTAL 01/26/18 11:30 (Lactulose Liq) 30 ml DAILY PRN PO 01/26/18 11:30 A/P Problem List: (1) CHF exacerbation ICD Code: I50.9 - Heart failure, unspecified Status: Acute (2) Diabetic foot infection ICD Code: E11.69 - Diabetic foot infection; L08.9 - Local infection of the skin and subcutaneous tissue, unspecified Status: Acute (3) DM (diabetes mellitus) ICD Code: E11.9 - Diabetes mellitus Status: Chronic (4) Constipation ICD Code: K59.00 - Constipation, unspecified Status: Acute (5) Heartburn ICD Code: R12 - Heartburn Status: Acute Assessment and Plan 53 y/o male with a history of DM, CAD, diabetic neuropathy, CHF on heart transplant list, multiple toe amputations presented to the ED with complaints of shortness of breath and fluid overload. CHF exacerbation, acute on chronic Chest x-ray reviewed and shows mild cardiomegaly [facility] 2776 -Initially treated with Lasix 40 mg IV twice a day. -BMP in a.m. -Cardiology consulted, patient with LifeVest and no outpatient systems specialist -Fluid restriction -Check 2D echocardiogram as recommended by cardiology --> Pending 01/26 Diabetic foot infection/osteomyelitis Foot x-ray reviewed and shows right soft tissue swelling ESR 28, CRP 69 -Podiatry consulted. -Patient given 1 dose of Vanco in the ED, pharmacy consult, follow closely patient with history of renal failure while on vancomycin -Wound cultures growing Providencia Rettgeri and Citrobacter Freundii. -Pain management with IV morphine -Foot MRI showed some myelitis distally of the first and fifth metatarsals. -Status post right foot partial fifth ray amputation bone biopsy on 01/24 -Continue IV Levaquin - Consult ID for further recommendations. 01/26 ID recommendations appreciated. Continue Levaquin and follow pathology upon biopsy. If he has only positive culture for 2 organisms. He recovered on 01/20, then he can be switched to oral Levaquin and treated for a week. Because of his renal dysfunction, if he has residual osteomyelitis based on pathology, consideration should be given to additional surgery to get to healthy noninfected bone. Diabetes mellitus type II, chronic, -Accu-Cheks with sliding scale insulin -Diabetic diet -Continue home long-acting insulin Hypoglycemia Patient had blood sugar in the 70s on 01/24. Patient started D5 half NS throughout surgery. Patient's blood sugars have remained stable in the 150s. Will discontinue D5. 01/26 Hypoglycemia resolved. No further episodes of hypoglycemia and blood sugars stable. Acute kidney injury Creatinine trended up to 1.67 on 01/23 and continues to trend up, today 1.94. Nephrology consulted. Appreciate recommendations. Renal ultrasound shows normal evaluation of the kidneys and bladder. Suspected ATN from IV vancomycin or from infection, interstitial nephritis also in the differential diagnosis. Vancomycin has been discontinued. Check urine sodium and eosinophils. Continue to monitor BUN and creatinine, history I's and O's and avoid nephrotoxins. 01/26 Bladder scan negative. Urine eosinophils ordered 01/24 but not sent to date , will reorder today. Creatinine is improving trending down from 1.94-1.76. Hyponatremia Sodium seems to be stable and slowly improving. Sodium today is 131. Continue to monitor BMP. Constipation Start the patient on the constipation protocol. Heartburn We will start the patient on omeprazole and will also write for Maalox as needed. DVT prophylaxis: Heparin Discharge Planning Continue to monitor on the medical floor. Discharge pending improvement of patient's renal function. Needs podiatry clearance. Problem Qualifiers (1) CHF exacerbation: Qualified Codes: I50.23 - Acute on chronic systolic (congestive) heart failure (2) DM (diabetes mellitus): Qualified Codes: E11.51 - Type 2 diabetes mellitus with diabetic peripheral angiopathy without gangrene; Z79.4 - prison (current) use of insulin (3) Constipation: Qualified Codes: K59.03 - Drug induced constipation Maxx Martinez MD Jan 26, 2018 17:14
--- NOTE | 2018-01-26 17:53 | HHI.NPPN ---
Subjective Additional Remarks No acute complaints Objective Data Data Vital Signs Date Time Temp Pulse Resp B/P (MAP) Pulse Ox O2 Delivery O2 Flow Rate FiO2 01/26/18 16:00 97.5 67 20 93/58 (70) 100 01/26/18 16:00 60 01/26/18 14:04 Room Air 01/26/18 12:00 63 01/26/18 12:00 97.7 64 20 119/76 (90) 100 01/26/18 10:22 64 01/26/18 09:12 Room Air 01/26/18 08:00 98.1 63 20 115/78 (90) 99 01/26/18 04:07 Room Air 01/26/18 04:00 97.4 62 20 143/65 (91) 97 01/26/18 04:00 61 01/26/18 00:00 98.4 65 18 134/72 (92) 96 01/26/18 00:00 63 01/26/18 00:00 Room Air 01/25/18 20:00 97.7 61 18 120/71 (87) 99 01/25/18 20:00 Room Air 01/25/18 20:00 62 01/25/18 18:30 Room Air -: 01/26/18 0820 01/26/18 0820 Physical Exam General Appearance: Well Developed, Well Nourished, No Acute Distress Throat Throat Exam: Oral Mucosa [place] & Moist Pulmonary Resp Exam: Diminished Breath Sounds Cardiology CV Exam: Regular, Normal Sinus Rhythm Gastrointestinal/Abdomen GI Exam: Soft, Non-Tender, Bowel Sounds Present Integumentary Skin Exam: Dry, Intact Extremeties Extremities Exam: No Edema Neurologic Neuro Exam: Alert, Awake, Oriented, Speech Clear Assessment/Plan Problem List: (1) ANDREI (acute kidney injury) ICD Codes: N17.9 - Acute kidney failure, unspecified Plan: ANDREI likely due to contrast exposure from CTA, vancomycin exposure in setting of infection. Possible interstitial nephritis - urine eosinophils pending Creatinine improving today, 1.9 -> 1.7, patient reports increased UOP Na 131, HCO3 18 - continue to monitor for now. Na improving with increased UOP. Mild acidosis - may consider PO NaHCO3 tomorrow if worsening levels. Renal USX noted - normal study, ascites seen. No signs of urinary retention on bladder scans Avoid any nephrotoxins. Follow the urine output and the BUN and creatinine - renal function improving. (2) Amputated toe of left foot ICD Codes: Z89.422 - Amputated toe of left foot Status: Acute Plan: s/p surgery 01/24 Continue to follow with podiatry (3) Toe osteomyelitis, left ICD Codes: M86.9 - Toe osteomyelitis, left Status: Acute Plan: on levaquin, follow with ID (4) DM (diabetes mellitus) ICD Codes: E11.9 - Diabetes mellitus Status: Chronic (5) CHF (congestive heart failure) ICD Codes: I50.9 - Heart failure, unspecified Status: Chronic Plan: continue to monitor Initially given lasix for CHF (6) Hyponatremia ICD Codes: E87.1 - Hypo-osmolality and hyponatremia Plan: due to CHF. Continue to monitor Problem Qualifiers (1) DM (diabetes mellitus): Qualified Codes: E11.51 - Type 2 diabetes mellitus with diabetic peripheral angiopathy without gangrene; Z79.4 - director long term care (current) use of insulin Kd Christiansen MD Jan 26, 2018 17:53
[2018-01-27] VITALS (8 sets, daily range): BP systolic 117–134; BP diastolic 67–74; PULSE 60–65; RESP 16–20; TEMP 97.3–98.2; O2SAT 97–100
[2018-01-27] MEDS: MORPHINE SULFATE 4 MG/ML INJ IV PUSH PRN ×7 (01:54→21:50)
[2018-01-27] MEDS: INSULIN ASPART SUPPLEMENTAL SCALE SQ SCH ×4 (08:00→20:34)
[2018-01-27] MEDS: PANTOPRAZOLE SOD 40 MG DELAYED RELEASE TAB PO SCH (08:27)
[2018-01-27] MEDS: SODIUM CHLORIDE 0.9% FLUSH 10 ML FLUSH IV FLUSH SCH ×2 (08:27→20:24)
[2018-01-27] MEDS: POLYETHYLENE GLYCOL 17 GM PKG PO SCH (08:27)
[2018-01-27] MEDS: FOLIC ACID 1 MG TAB PO SCH (08:28)
[2018-01-27] MEDS: ASPIRIN 81 MG CHEW TAB CHEW SCH (08:28)
[2018-01-27] MEDS: CARVEDILOL 12.5 MG TAB PO SCH ×2 (08:28→20:24)
[2018-01-27] MEDS: ATORVASTATIN 10 MG TAB PO SCH (08:28)
[2018-01-27] MEDS: DOCUSATE SODIUM 50 MG/SENNA 8.6 MG TAB PO SCH ×2 (08:28→20:24)
[2018-01-27] MEDS: HEPARIN SODIUM - SQ 10,000 UNITS/ML VIAL SQ SCH ×2 (08:29→20:24)
[2018-01-27] MEDS: LEVOFLOXACIN 500 MG PREMIX INJ 100 ML IV SCH (08:29)
--- NOTE | 2018-01-27 10:30 | HHI.NPPN ---
Subjective History of Present Illness This is a 53-year-old male with a past medical history of diabetes mellitus, which is longstanding, history of recent acute kidney injury, ischemic heart disease, congestive heart failure with history of being on heart transplant list , came to the hospital with complaint of right lower extremity cellulitis and shortness of breath.Nephrology consulted to see the patient because of elevated BUN and creatinine. The patient has a history of acute kidney injury when he was here end of October, and his creatinine improved and went down to 1.1, 1.2 and that is what he came in with, and now the creatinine is 1.6 and gone up to 1.9. The patient has been diagnosed with a right foot infection and followed by the podiatry and also seen by the vascular surgery, and he is supposed to go for surgery now with left plantar fifth ray amputation and bone biopsy. The patient is n.p.o. at present. Vascular surgeon has seen the patient, and impression was that the blood flow is good and the wound should heal adequately. The patient has some nausea today, but there is no vomiting. There is no history of diarrhea. No dysuria or hematuria. The patient was also seen by cardiology for his cardiomyopathy, and the impression was to optimize medically before the surgery. During this admission, the patient has been getting vancomycin. The last dose was given yesterday morning and then it was stopped, and currently he is on Levaquin. Potassium is on the lower side, and the patient also has been getting potassium but now it is 5.0. Additional Remarks Denies any SOB. No acute complaints. Not wearing life vest (Joya Bell) Review of Systems Respiratory Respiratory Remarks Denies SOB (Joya Bell) Cardiovascular Cardiac Remarks Denies CP (Joya Bell) Gastrointestinal GI Remarks denies abdominal pain (Joya Bell) Objective Data Data Vital Signs Date Time Temp Pulse Resp B/P (MAP) Pulse Ox O2 Delivery O2 Flow Rate FiO2 01/27/18 08:00 98.1 63 20 119/71 (87) 98 01/27/18 08:00 64 01/27/18 07:16 Room Air 01/27/18 04:20 Room Air 01/27/18 04:00 98.0 63 18 134/74 (94) 98 3/19/18 04:00 61 01/27/18 00:00 Room Air 01/27/18 00:00 97.7 65 16 120/69 (86) 100 01/27/18 00:00 62 01/26/18 20:00 64 01/26/18 20:00 97.9 61 16 122/69 (86) 96 01/26/18 20:00 Room Air 01/26/18 17:45 Room Air 01/26/18 16:00 97.5 67 20 93/58 (70) 100 01/26/18 16:00 60 01/26/18 14:04 Room Air 01/26/18 12:00 63 01/26/18 12:00 97.7 64 20 119/76 (90) 100 01/26/18 10:22 64 (Joya Bell) -: 01/26/18 0820 01/26/18 0820 Imaging Last Impressions Renal Ultrasound 01/25/18 0000 Signed Impressions: Service Date/Time: Thursday, January 25, 2018 10:44 - CONCLUSION: Normal above evaluation of the kidneys and bladder. There is free fluid identified within Cintron's pouch as well as within the pelvis. This may reflect ascites.. Susan Yang MD Foot X-Ray 01/24/18 0000 Signed Impressions: Service Date/Time: Wednesday, January 24, 2018 21:52 - CONCLUSION: Slightly greater than half of the distal fifth metatarsal has been resected in the interim. No evidence of an acute complication. Clifford Montaño MD Foot MRI 01/23/18 0000 Signed Impressions: Service Date/Time: January 18:35 - CONCLUSION: 1. Osteomyelitis distally of the first and fifth metatarsals as above. Also probably patchy osteomyelitis within the phalanges of the little toe. The other toes have been previously amputated. 2. No abscess. Clifford Montaño MD Aorta w/Runoff CTA 01/23/18 0000 Signed Impressions: Service Date/Time: January 14:44 - CONCLUSION: 1. No significant aortic occlusive disease or iliac inflow stenosis. 2. Diffusely calcified superficial femoral arteries bilaterally without significant outflow stenosis. 3. Limited three-vessel runoff to the foot on the right with diffuse distal posterior tibial disease and bulky calcifications of the proximal peroneal artery. 4. Limited three-vessel runoff to the mid to distal left calf. The distal runoff vessels are heavily calcified and incompletely opacified beyond the mid calf for definitive diagnosis. 5. Trace right pleural effusion with very subtle free fluid in the abdomen and mild diffuse soft tissue anasarca in the lower abdomen consistent with mild positive fluid balance. Dl Mazariegos MD Lower Extremity Ultrasound 01/20/18 1511 Signed Impressions: Service Date/Time: Saturday, January 20, 2018 15:26 - CONCLUSION: 1. No evidence for DVT. 2. Prominent right inguinal lymph nodes are present. Alexis Villalobos MD Chest X-Ray 01/20/18 1404 Signed Impressions: Service Date/Time: Saturday, January 20, 2018 14:26 - CONCLUSION: 1. COPD changes and mild cardiomegaly. Kd Estrada MD (GellerJoya nava M. PITTING MACHINE OPERATOR) Physical Exam General Appearance: Well Developed, Well Nourished, No Acute Distress (GellermannKatinaJoya M. PITTING MACHINE OPERATOR) Throat Throat Exam: Oral Mucosa [place] & Moist (GellermannKatinaJoya M. PITTING MACHINE OPERATOR) Pulmonary Resp Exam: Diminished Breath Sounds (GellermannKatinaJoya M. PITTING MACHINE OPERATOR) Cardiology CV Exam: Regular, Normal Sinus Rhythm (GellermannJoya M. PITTING MACHINE OPERATOR) Gastrointestinal/Abdomen GI Exam: Soft, Non-Tender, Bowel Sounds Present (GellermannKatinaJoya M. PITTING MACHINE OPERATOR) Integumentary Skin Exam: Dry, Intact (GellermannJoya M. PITTING MACHINE OPERATOR) Extremeties Extremities Exam: No Edema (GellermannJoya M. PITTING MACHINE OPERATOR) Neurologic Neuro Exam: Alert, Awake, Oriented, Speech Clear (GellermannJoya M. PITTING MACHINE OPERATOR) Assessment/Plan Assessment Summary: ANDREI/Acute Renal Failure Problem List: (1) ANDREI (acute kidney injury) ICD Codes: N17.9 - Acute kidney failure, unspecified Plan: ANDREI likely due to contrast exposure from CTA, vancomycin exposure in setting of infection. Possible interstitial nephritis - urine eosinophils pending Renal US - normal study, ascites seen. Creatinine improving, 1.9 -> 1.7 yesterday HCO3 18 yesterday - continue to monitor for now may consider PO NaHCO3 tomorrow if worsening levels. Avoid any nephrotoxins. Follow the urine output and the BUN and creatinine (2) Amputated toe of left foot ICD Codes: Z89.422 - Amputated toe of left foot Status: Acute Plan: s/p surgery 01/24 Continue to follow with podiatry (3) Toe osteomyelitis, left ICD Codes: M86.9 - Toe osteomyelitis, left Status: Acute Plan: on Levaquin renal dosing, follow with ID (4) DM (diabetes mellitus) ICD Codes: E11.9 - Diabetes mellitus Status: Chronic (5) CHF (congestive heart failure) ICD Codes: I50.9 - Heart failure, unspecified Status: Chronic Plan: continue to monitor Initially given lasix for CHF (6) Hyponatremia ICD Codes: E87.1 - Hypo-osmolality and hyponatremia Plan: due to CHF. Continue to monitor (Joya Bell) Problem List: (1) ANDREI (acute kidney injury) ICD Codes: N17.9 - Acute kidney failure, unspecified Plan: ANDREI likely due to contrast exposure from CTA, vancomycin exposure in setting of infection. Possible interstitial nephritis - urine eosinophils pending Renal US - normal study, ascites seen. Creatinine improving, 1.9 -> 1.7 yesterday HCO3 18 yesterday - continue to monitor for now may consider PO NaHCO3 tomorrow if worsening levels. Avoid any nephrotoxins. Follow the urine output and the BUN and creatinine. Patient seen and examined, agree with above. Creatinine continue to improve. (2) Amputated toe of left foot ICD Codes: Z89.422 - Amputated toe of left foot Status: Acute Plan: s/p surgery 01/24 Continue to follow with podiatry (3) Toe osteomyelitis, left ICD Codes: M86.9 - Toe osteomyelitis, left Status: Acute Plan: on Levaquin renal dosing, follow with ID (4) DM (diabetes mellitus) ICD Codes: E11.9 - Diabetes mellitus Status: Chronic (5) CHF (congestive heart failure) ICD Codes: I50.9 - Heart failure, unspecified Status: Chronic Plan: continue to monitor Initially given lasix for CHF (6) Hyponatremia ICD Codes: E87.1 - Hypo-osmolality and hyponatremia Plan: due to CHF. Continue to monitor (Jenni Bee MD) Problem Qualifiers (1) DM (diabetes mellitus): Qualified Codes: E11.51 - Type 2 diabetes mellitus with diabetic peripheral angiopathy without gangrene; Z79.4 - custodial (current) use of insulin Joya Bell Jan 27, 2018 10:30 Jenni Bee MD Jan 27, 2018 19:05
--- NOTE | 2018-01-27 15:51 | HHI.PR ---
Subjective Remarks c/o abdominal distension and bloating as well as constipation. States has not had a BM in 5 days. Denies nausea, vomiting or abdominal pain Objective Vitals Vital Signs Date Time Temp Pulse Resp B/P (MAP) Pulse Ox O2 Delivery O2 Flow Rate FiO2 01/27/18 12:00 61 01/27/18 12:00 97.3 62 20 117/67 (84) 100 01/27/18 08:00 98.1 63 20 119/71 (87) 98 01/27/18 08:00 64 01/27/18 07:16 Room Air 01/27/18 04:20 Room Air 01/27/18 04:00 98.0 63 18 134/74 (94) 98 01/27/18 04:00 61 01/27/18 00:00 Room Air 01/27/18 00:00 97.7 65 16 120/69 (86) 100 01/27/18 00:00 62 01/26/18 20:00 64 01/26/18 20:00 97.9 61 16 122/69 (86) 96 01/26/18 20:00 Room Air 01/26/18 17:45 Room Air 01/26/18 16:00 97.5 67 20 93/58 (70) 100 01/26/18 16:00 60 I/O 01/26/18 01/26/18 01/26/18 01/27/18 01/27/18 01/27/18 06:59 14:59 22:59 06:59 14:59 22:59 Intake Total 240 ml 480 ml 240 ml Balance 240 ml 480 ml 240 ml Intake Oral 240 ml 480 ml 240 ml # Voids 5 4 7 # Bowel Movements 0 0 Result Diagram: 01/26/18 0820 01/26/18 0820 Imaging Last Impressions Renal Ultrasound 01/25/18 0000 Signed Impressions: Service Date/Time: Thursday, January 25, 2018 10:44 - CONCLUSION: Normal above evaluation of the kidneys and bladder. There is free fluid identified within Cintron's pouch as well as within the pelvis. This may reflect ascites.. Susan Yang MD Foot X-Ray 01/24/18 0000 Signed Impressions: Service Date/Time: Wednesday, January 24, 2018 21:52 - CONCLUSION: Slightly greater than half of the distal fifth metatarsal has been resected in the interim. No evidence of an acute complication. Clifford Montaño MD Foot MRI 01/23/18 0000 Signed Impressions: Service Date/Time: January 18:35 - CONCLUSION: 1. Osteomyelitis distally of the first and fifth metatarsals as above. Also probably patchy osteomyelitis within the phalanges of the little toe. The other toes have been previously amputated. 2. No abscess. Clifford Montaño MD Aorta w/Runoff CTA 01/23/18 0000 Signed Impressions: Service Date/Time: January 14:44 - CONCLUSION: 1. No significant aortic occlusive disease or iliac inflow stenosis. 2. Diffusely calcified superficial femoral arteries bilaterally without significant outflow stenosis. 3. Limited three-vessel runoff to the foot on the right with diffuse distal posterior tibial disease and bulky calcifications of the proximal peroneal artery. 4. Limited three-vessel runoff to the mid to distal left calf. The distal runoff vessels are heavily calcified and incompletely opacified beyond the mid calf for definitive diagnosis. 5. Trace right pleural effusion with very subtle free fluid in the abdomen and mild diffuse soft tissue anasarca in the lower abdomen consistent with mild positive fluid balance. Dl Mazariegos MD Lower Extremity Ultrasound 01/20/18 1511 Signed Impressions: Service Date/Time: Saturday, January 20, 2018 15:26 - CONCLUSION: 1. No evidence for DVT. 2. Prominent right inguinal lymph nodes are present. Alexis Villalobos MD Chest X-Ray 01/20/18 1404 Signed Impressions: Service Date/Time: Saturday, January 20, 2018 14:26 - CONCLUSION: 1. COPD changes and mild cardiomegaly. Kd Estrada MD Objective Remarks AAox3 nad Clear lungs BL S1S2 RRR, no MRG abdomen obese, tender to palpation of suprapubic region. (+) 1 edema of BL lower extremities Procedures Status post Right foot partial 5th ray amputation with bone biopsy Medications and IVs Current Medications Medications (Trade) Dose Ordered Sig/[place] Route Start Time Stop Time Status Last Admin (NS Flush) 2 ml UNSCH PRN IV FLUSH 01/20/18 19:00 01/24/18 03:51 (NS Flush) 2 ml BID IV FLUSH 01/20/18 21:00 01/27/18 08:27 (Tylenol) 650 mg Q4H PRN PO 01/20/18 19:00 (Zofran Inj) 4 mg Q6H PRN IVP 01/20/18 19:00 01/24/18 08:37 (Tylenol) 650 mg Q6H PRN PO 01/20/18 19:00 (Narcan Inj) 0.4 mg UNSCH PRN IV PUSH 01/20/18 19:00 01/26/18 17:36 (NovoLOG SUPPLEMENTAL SCALE) 1 ACHS SLIDING SCALE SQ 01/20/18 21:00 01/25/18 09:16 (Morphine Inj) 2 mg Q3H PRN IV PUSH 01/20/18 20:30 01/24/18 17:54 (Morphine Inj) 4 mg Q3H PRN IV PUSH 01/20/18 20:30 01/27/18 15:13 (Heparin Inj) 5,000 units Q12HR SQ 01/21/18 21:00 01/27/18 08:29 (D50w (Vial) Inj) 50 ml UNSCH PRN IV PUSH 01/20/18 22:30 01/22/18 12:51 (Glucagon Inj) 1 mg UNSCH PRN OTHER 01/20/18 22:30 (Aspirin Chew) 81 mg DAILY CHEW 01/21/18 09:00 01/27/18 08:28 (Lipitor) 10 mg DAILY PO 01/21/18 09:00 01/27/18 08:28 (Coreg) 25 mg Q12HR PO 01/20/18 22:30 01/27/18 08:28 (Folate) 1 mg DAILY PO 01/21/18 09:00 01/27/18 08:28 (Pill Splitter) 1 ea UNSCH PRN OTHER 01/21/18 16:00 (Miralax) 17 gm DAILY PO 01/24/18 09:00 01/27/18 08:27 Levofloxacin/ Dextrose 100 ml @ 100 mls/hr Q24H IV 01/24/18 09:00 01/27/18 08:29 (Protonix) 40 mg DAILY PO 01/27/18 09:00 01/27/18 08:27 (Mariam-Colace) 1 tab BID PO 01/26/18 21:00 01/27/18 08:28 (Milk Of Magnesia Liq) 30 ml Q12H PRN PO 01/26/18 11:30 01/26/18 15:40 (Senokot) 17.2 mg Q12H PRN PO 01/26/18 11:30 01/26/18 15:40 (Dulcolax Supp) 10 mg DAILY PRN RECTAL 01/26/18 11:30 (Lactulose Liq) 30 ml DAILY PRN PO 01/26/18 11:30 A/P Problem List: (1) CHF exacerbation ICD Code: I50.9 - Heart failure, unspecified Status: Acute (2) Diabetic foot infection ICD Code: E11.69 - Diabetic foot infection; L08.9 - Local infection of the skin and subcutaneous tissue, unspecified Status: Acute (3) DM (diabetes mellitus) ICD Code: E11.9 - Diabetes mellitus Status: Chronic (4) Constipation ICD Code: K59.00 - Constipation, unspecified Status: Acute (5) Heartburn ICD Code: R12 - Heartburn Status: Acute Assessment and Plan 53 y/o male with a history of DM, CAD, diabetic neuropathy, CHF on heart transplant list, multiple toe amputations presented to the ED with complaints of shortness of breath and fluid overload. CHF exacerbation, acute on chronic Chest x-ray reviewed and shows mild cardiomegaly BMP 2776 -Initially treated with Lasix 40 mg IV twice a day. -BMP in a.m. -Cardiology consulted, patient with LifeVest and no outpatient frame bander -Fluid restriction -Check 2D echocardiogram as recommended by cardiology --> Pending 01/26 Diabetic foot infection/osteomyelitis Foot x-ray reviewed and shows right soft tissue swelling ESR 28, CRP 69 -Podiatry consulted. -Patient given 1 dose of Vanco in the ED, pharmacy consult, follow closely patient with history of renal failure while on vancomycin -Wound cultures growing Providencia Rettgeri and Citrobacter Freundii. -Pain management with IV morphine -Foot MRI showed some myelitis distally of the first and fifth metatarsals. -Status post right foot partial fifth ray amputation bone biopsy on 01/24 -Continue IV Levaquin - Consult ID for further recommendations. -ID recommendations appreciated. Continue Levaquin and follow pathology upon biopsy. If he has only positive culture for 2 organisms. He recovered on 01/20, then he can be switched to oral Levaquin and treated for a week. Because of his renal dysfunction, if he has residual osteomyelitis based on pathology, consideration should be given to additional surgery to get to healthy noninfected bone. -01/27 Pathology pending. Continue IV Levaquin. Diabetes mellitus type II, chronic, -Accu-Cheks with sliding scale insulin -Diabetic diet -Continue home long-acting insulin -01/27 Blood sugars acceptable. Hypoglycemia Patient had blood sugar in the 70s on 01/24. Patient started D5 half NS throughout surgery. Patient's blood sugars have remained stable in the 150s. Will discontinue D5. 01/26 Hypoglycemia resolved. No further episodes of hypoglycemia and blood sugars stable. Acute kidney injury Creatinine trended up to 1.67 on 01/23 and continues to trend up, today 1.94. Nephrology consulted. Appreciate recommendations. Renal ultrasound shows normal evaluation of the kidneys and bladder. Suspected ATN from IV vancomycin or from infection, interstitial nephritis also in the differential diagnosis. Vancomycin has been discontinued. Check urine sodium and eosinophils. Continue to monitor BUN and creatinine, history I's and O's and avoid nephrotoxins. 01/26 Bladder scan negative. Urine eosinophils ordered 01/24 but not sent to date , will reorder today. Creatinine is improving trending down from 1.94-1.76. 01/27 Lab pending, creatinine ordered and not available - Will order BMP. Hyponatremia Sodium seems to be stable and slowly improving. Sodium today is 131. Continue to monitor BMP. Constipation Continue constipation protocol. 01/27 No BM yet after Miralax admisnitration. Will Rx Magnesium Citrate. Heartburn We will start the patient on omeprazole and will also write for Maalox as needed. DVT prophylaxis: Heparin Discharge Planning Continue to monitor on the medical floor. Discharge pending improvement of patient's renal function. Needs podiatry and ID clearance. Problem Qualifiers (1) CHF exacerbation: Qualified Codes: I50.23 - Acute on chronic systolic (congestive) heart failure (2) DM (diabetes mellitus): Qualified Codes: E11.51 - Type 2 diabetes mellitus with diabetic peripheral angiopathy without gangrene; Z79.4 - group home (current) use of insulin (3) Constipation: Qualified Codes: K59.03 - Drug induced constipation Maxx Martinez MD Jan 27, 2018 15:50
[2018-01-27 19:01] LABS: CREATININE 1.65 MG/DL (0.60-1.30)
[2018-01-27 19:03] LABS: RANDOM VANCOMYCIN 15.4 COMMENT
--- NOTE | 2018-01-27 19:48 | ECHRPT ---
Indication: heart failure CONCLUSIONS Mildly dilated left ventricle. The left ventricular systolic function is severely reduced with an estimated ejection fraction less than 20%. Mild mitral valve regurgitation. There is mild to moderate tricuspid valve regurgitation. The estimated pulmonary arterial pressure is 48 mmHg. BP: / HR: Rhythm: MEASUREMENTS (Male / Female) Normal Values Technical Quality: 2D ECHO LV Diastolic Diameter PLAX 5.7 cm 4.2 - 5.9 / 3.9 - 5.3 cm LV Systolic Diameter PLAX 5.3 cm IVS Diastolic Thickness 1.0 cm 0.6 - 1.0 / 0.6 - 0.9 cm LVPW Diastolic Thickness 1.2 cm 0.6 - 1.0 / 0.6 - 0.9 cm LV Relative Wall Thickness 0.4 RV Internal Dim ED PLAX 3.5 cm M-MODE Aortic Root Diameter MM 3.2 cm LA Systolic Diameter MM 4.7 cm LA Ao Ratio MM 1.5 AV Cusp Separation MM 1.8 cm DOPPLER TR Peak Velocity 307.0 cm/s TR Peak Gradient 37.7 mmHg Right Atrial Pressure 10.0 mmHg Pulmonary Artery Systolic Pressu 47.7 mmHg Right Ventricular Systolic Press 47.7 mmHg FINDINGS LEFT VENTRICLE Mildly dilated left ventricle. The left ventricular systolic function is severely reduced with an estimated ejection fraction less than 20%. RIGHT VENTRICLE Normal right ventricular size and systolic function. LEFT ATRIUM The left atrial size is normal. RIGHT ATRIUM The right atrial size is normal. ATRIAL SEPTUM Normal atrial septal thickness without atrial level shunting by limited color doppler interrogation. AORTA The aortic root and proximal ascending aorta are normal in size on limited imaging. MITRAL VALVE Structurally normal mitral valve. Mild mitral valve regurgitation. AORTIC VALVE Trileaflet aortic valve. No aortic valve regurgitation. No aortic valve stenosis. TRICUSPID VALVE Structurally normal tricuspid valve. There is mild to moderate tricuspid valve regurgitation. The estimated pulmonary arterial pressure is 47.7 mmHg. PULMONARY VALVE No pulmonary valve regurgitation or stenosis. VESSELS The inferior vena cava is normal in size. PERICARDIUM No pericardial effusion. Juanis Ellison MD, FACC (Electronically Signed) Final Date:27 January 2018 19:47
[2018-01-27] MEDS: SODIUM CHLORIDE 0.9% FLUSH 10 ML FLUSH IV FLUSH PRN (21:50)
[2018-01-27 22:48] LABS: BICARBONATE 18.7 MEQ/L (21.0-32.0); CALCIUM 9.2 MG/DL (8.5-10.1); CREATININE 1.7 MG/DL (0.60-1.30)
[2018-01-28] VITALS (8 sets, daily range): BP systolic 101–128; BP diastolic 69–75; PULSE 59–63; RESP 16–20; TEMP 96–98.1; O2SAT 96–100
[2018-01-28] MEDS: MORPHINE SULFATE 4 MG/ML INJ IV PUSH PRN ×8 (00:55→23:41)
[2018-01-28] MEDS: SODIUM CHLORIDE 0.9% FLUSH 10 ML FLUSH IV FLUSH PRN ×3 (00:56→23:41)
[2018-01-28 07:15] LABS: HEMATOCRIT 32.5 % (39.0-51.0); MEAN CORPUSCULAR HEMOGLOBIN 22.4 PG (27.0-34.0); MEAN CORPUSCULAR HGB CONC 30.7 % (32.0-36.0); MEAN PLATELET VOLUME 8.6 FL (7.0-11.0); PLATELET COUNT 204 TH/MM3 (150-450); RED BLOOD COUNT 4.45 MIL/MM3 (4.50-5.90); RED CELL DISTRIBUTION WIDTH 20.7 % (11.6-17.2); WHITE BLOOD COUNT 4.9 TH/MM3 (4.0-11.0)
[2018-01-28 07:49] LABS: BICARBONATE 18.7 MEQ/L (21.0-32.0); CALCIUM 8.9 MG/DL (8.5-10.1); CREATININE 1.59 MG/DL (0.60-1.30)
[2018-01-28] MEDS: INSULIN ASPART SUPPLEMENTAL SCALE SQ SCH ×4 (08:00→20:32)
[2018-01-28] MEDS: SODIUM CHLORIDE 0.9% FLUSH 10 ML FLUSH IV FLUSH SCH ×2 (08:09→20:31)
[2018-01-28] MEDS: FOLIC ACID 1 MG TAB PO SCH (08:10)
[2018-01-28] MEDS: ASPIRIN 81 MG CHEW TAB CHEW SCH (08:10)
[2018-01-28] MEDS: ATORVASTATIN 10 MG TAB PO SCH (08:10)
[2018-01-28] MEDS: HEPARIN SODIUM - SQ 10,000 UNITS/ML VIAL SQ SCH ×2 (08:10→20:32)
[2018-01-28] MEDS: PANTOPRAZOLE SOD 40 MG DELAYED RELEASE TAB PO SCH (08:10)
[2018-01-28] MEDS: DOCUSATE SODIUM 50 MG/SENNA 8.6 MG TAB PO SCH ×2 (08:10→20:32)
[2018-01-28] MEDS: CARVEDILOL 12.5 MG TAB PO SCH ×2 (08:10→20:31)
[2018-01-28] MEDS: LEVOFLOXACIN 500 MG PREMIX INJ 100 ML IV SCH (08:11)
[2018-01-28] MEDS: POLYETHYLENE GLYCOL 17 GM PKG PO SCH (08:12)
--- NOTE | 2018-01-28 15:25 | HHI.NPPN ---
Subjective History of Present Illness This is a 53-year-old male with a past medical history of diabetes mellitus, which is longstanding, history of recent acute kidney injury, ischemic heart disease, congestive heart failure with history of being on heart transplant list , came to the hospital with complaint of right lower extremity cellulitis and shortness of breath.Nephrology consulted to see the patient because of elevated BUN and creatinine. The patient has a history of acute kidney injury when he was here end of October, and his creatinine improved and went down to 1.1, 1.2 and that is what he came in with, and now the creatinine is 1.6 and gone up to 1.9. The patient has been diagnosed with a right foot infection and followed by the podiatry and also seen by the vascular surgery, and he is supposed to go for surgery now with left plantar fifth ray amputation and bone biopsy. The patient is n.p.o. at present. Vascular surgeon has seen the patient, and impression was that the blood flow is good and the wound should heal adequately. The patient has some nausea today, but there is no vomiting. There is no history of diarrhea. No dysuria or hematuria. The patient was also seen by cardiology for his cardiomyopathy, and the impression was to optimize medically before the surgery. During this admission, the patient has been getting vancomycin. The last dose was given yesterday morning and then it was stopped, and currently he is on Levaquin. Potassium is on the lower side, and the patient also has been getting potassium but now it is 5.0. Additional Remarks Denies any SOB. No acute complaints. (Joya Bell) Review of Systems Respiratory Respiratory Remarks Denies SOB (Joya Bell) Cardiovascular Cardiac Remarks Denies CP (Joya Bell) Gastrointestinal GI Remarks denies abdominal pain (Joya Bell) Objective Data Data 01/28/18 01/29/18 19:00 07:00 Intake Total 100 ml Balance 100 ml IV Total 100 ml Vital Signs Date Time Temp Pulse Resp B/P (MAP) Pulse Ox O2 Delivery O2 Flow Rate FiO2 01/28/18 12:00 97.9 61 20 128/75 (92) 100 01/28/18 08:30 97.9 62 20 124/75 (91) 100 01/28/18 08:00 60 01/28/18 07:19 Room Air 01/28/18 04:16 Room Air 01/28/18 04:16 97.5 63 18 118/75 (89) 100 01/28/18 00:00 Room Air 01/28/18 00:00 97.6 63 18 101/69 (80) 100 01/27/18 23:41 65 01/27/18 20:01 Room Air 01/27/18 20:01 97.7 63 18 123/71 (88) 100 01/27/18 19:57 21 01/27/18 19:44 65 01/27/18 16:00 60 01/27/18 16:00 98.2 62 20 120/73 (89) 97 (Joya Bell) -: 01/28/18 0637 01/28/18 0637 Physical Exam General Appearance: Well Developed, Well Nourished, No Acute Distress (Joya Bell) Throat Throat Exam: Oral Mucosa [place] & Moist (Joya Bell) Pulmonary Resp Exam: Diminished Breath Sounds (Joya Bell) Cardiology CV Exam: Regular, Normal Sinus Rhythm (Joya Bell) Gastrointestinal/Abdomen GI Exam: Soft, Non-Tender, Bowel Sounds Present (Joya Bell) Integumentary Skin Exam: Dry, Intact (Joya Bell) Extremeties Extremities Exam: No Edema (Joya Blel) Neurologic Neuro Exam: Alert, Awake, Oriented, Speech Clear (Joya Bell) Assessment/Plan Assessment Summary: ANDREI/Acute Renal Failure Problem List: (1) ANDREI (acute kidney injury) ICD Codes: N17.9 - Acute kidney failure, unspecified Plan: ANDREI likely due to contrast exposure from CTA, vancomycin exposure in setting of infection. Possible interstitial nephritis - urine eosinophils pending Renal US - normal study, ascites seen. Plan Creatinine improving at 1.5 today Good UOP HCO3 unchanged at 18 Avoid any nephrotoxins. Follow the urine output and the BUN and creatinine. (2) Amputated toe of left foot ICD Codes: Z89.422 - Amputated toe of left foot Status: Acute Plan: s/p surgery 01/24 Continue to follow with podiatry (3) Toe osteomyelitis, left ICD Codes: M86.9 - Toe osteomyelitis, left Status: Acute Plan: on Levaquin renal dosing, follow with ID (4) DM (diabetes mellitus) ICD Codes: E11.9 - Diabetes mellitus Status: Chronic (5) CHF (congestive heart failure) ICD Codes: I50.9 - Heart failure, unspecified Status: Chronic Plan: continue to monitor Initially given lasix for CHF (6) Hyponatremia ICD Codes: E87.1 - Hypo-osmolality and hyponatremia Plan: due to CHF. Continue to monitor (Joya Bell) Problem List: (1) ANDREI (acute kidney injury) ICD Codes: N17.9 - Acute kidney failure, unspecified Plan: ANDREI likely due to contrast exposure from CTA, vancomycin exposure in setting of infection. Possible interstitial nephritis - urine eosinophils pending Renal US - normal study, ascites seen. Plan Creatinine improving at 1.5 today Good UOP HCO3 unchanged at 18 Avoid any nephrotoxins. Follow the urine output and the BUN and creatinine. Patient seen and examined, agree with above. Doing better, Creatinine is improving. (2) Amputated toe of left foot ICD Codes: Z89.422 - Amputated toe of left foot Status: Acute Plan: s/p surgery 01/24 Continue to follow with podiatry (3) Toe osteomyelitis, left ICD Codes: M86.9 - Toe osteomyelitis, left Status: Acute Plan: on Levaquin renal dosing, follow with ID (4) DM (diabetes mellitus) ICD Codes: E11.9 - Diabetes mellitus Status: Chronic (5) CHF (congestive heart failure) ICD Codes: I50.9 - Heart failure, unspecified Status: Chronic Plan: continue to monitor Initially given lasix for CHF (6) Hyponatremia ICD Codes: E87.1 - Hypo-osmolality and hyponatremia Plan: due to CHF. 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
--- NOTE | 2018-01-28 16:02 | HHI.PR ---
Subjective Remarks Deferred entry, the patient was seen earlier at 11:50 AM. The patient states he feels much better. Denies abdominal pain, nausea or vomiting. The patient states he had a bowel movement earlier today. Constipation has resolved. Patient is passing gas. Objective Vitals Vital Signs Date Time Temp Pulse Resp B/P (MAP) Pulse Ox O2 Delivery O2 Flow Rate FiO2 01/28/18 12:00 97.9 61 20 128/75 (92) 100 01/28/18 08:30 97.9 62 20 124/75 (91) 100 01/28/18 08:00 60 01/28/18 07:19 Room Air 01/28/18 04:16 Room Air 01/28/18 04:16 97.5 63 18 118/75 (89) 100 01/28/18 00:00 Room Air 01/28/18 00:00 97.6 63 18 101/69 (80) 100 01/27/18 23:41 65 01/27/18 20:01 Room Air 01/27/18 20:01 97.7 63 18 123/71 (88) 100 01/27/18 19:57 21 01/27/18 19:44 65 01/27/18 16:00 60 01/27/18 16:00 98.2 62 20 120/73 (89) 97 I/O 01/27/18 01/27/18 01/27/18 01/28/18 01/28/18 01/28/18 06:59 14:59 22:59 06:59 14:59 22:59 Intake Total 240 ml 100 ml 600 ml 940 ml 100 ml Balance 240 ml 100 ml 600 ml 940 ml 100 ml Intake Oral 240 ml 600 ml 940 ml IV Total 100 ml 100 ml # Voids 7 5 9 # Bowel Movements 0 0 3 Result Diagram: 01/28/18 0637 01/28/18 0637 Imaging Last Impressions Renal Ultrasound 01/25/18 0000 Signed Impressions: Service Date/Time: Thursday, January 25, 2018 10:44 - CONCLUSION: Normal above evaluation of the kidneys and bladder. There is free fluid identified within Cintron's pouch as well as within the pelvis. This may reflect ascites.. Susan Yang MD Foot X-Ray 01/24/18 0000 Signed Impressions: Service Date/Time: Wednesday, January 24, 2018 21:52 - CONCLUSION: Slightly greater than half of the distal fifth metatarsal has been resected in the interim. No evidence of an acute complication. Clifford Montaño MD Foot MRI 01/23/18 0000 Signed Impressions: Service Date/Time: January 18:35 - CONCLUSION: 1. Osteomyelitis distally of the first and fifth metatarsals as above. Also probably patchy osteomyelitis within the phalanges of the little toe. The other toes have been previously amputated. 2. No abscess. Clifford Montaño MD Aorta w/Runoff CTA 01/23/18 0000 Signed Impressions: Service Date/Time: January 14:44 - CONCLUSION: 1. No significant aortic occlusive disease or iliac inflow stenosis. 2. Diffusely calcified superficial femoral arteries bilaterally without significant outflow stenosis. 3. Limited three-vessel runoff to the foot on the right with diffuse distal posterior tibial disease and bulky calcifications of the proximal peroneal artery. 4. Limited three-vessel runoff to the mid to distal left calf. The distal runoff vessels are heavily calcified and incompletely opacified beyond the mid calf for definitive diagnosis. 5. Trace right pleural effusion with very subtle free fluid in the abdomen and mild diffuse soft tissue anasarca in the lower abdomen consistent with mild positive fluid balance. Dl Mazariegos MD Lower Extremity Ultrasound 01/20/18 1511 Signed Impressions: Service Date/Time: Saturday, January 20, 2018 15:26 - CONCLUSION: 1. No evidence for DVT. 2. Prominent right inguinal lymph nodes are present. Alexis Villalobos MD Chest X-Ray 01/20/18 1404 Signed Impressions: Service Date/Time: Saturday, January 20, 2018 14:26 - CONCLUSION: 1. COPD changes and mild cardiomegaly. Kd Estrada MD Objective Remarks AAox3 nad Clear lungs BL S1S2 RRR, no MRG abdomen obese, tender to palpation of suprapubic region. (+) 1 edema of BL lower extremities Procedures Status post Right foot partial 5th ray amputation with bone biopsy Medications and IVs Current Medications Medications (Trade) Dose Ordered Sig/[place] Route Start Time Stop Time Status Last Admin (NS Flush) 2 ml UNSCH PRN IV FLUSH 01/20/18 19:00 01/28/18 04:17 (NS Flush) 2 ml BID IV FLUSH 01/20/18 21:00 01/28/18 08:09 (Tylenol) 650 mg Q4H PRN PO 01/20/18 19:00 (Zofran Inj) 4 mg Q6H PRN IVP 01/20/18 19:00 01/24/18 08:37 (Tylenol) 650 mg Q6H PRN PO 01/20/18 19:00 (Narcan Inj) 0.4 mg UNSCH PRN IV PUSH 01/20/18 19:00 01/26/18 17:36 (NovoLOG SUPPLEMENTAL SCALE) 1 ACHS SLIDING SCALE SQ 01/20/18 21:00 01/28/18 11:29 (Morphine Inj) 2 mg Q3H PRN IV PUSH 01/20/18 20:30 01/24/18 17:54 (Morphine Inj) 4 mg Q3H PRN IV PUSH 01/20/18 20:30 01/28/18 14:35 (Heparin Inj) 5,000 units Q12HR SQ 01/21/18 21:00 01/28/18 08:10 (D50w (Vial) Inj) 50 ml UNSCH PRN IV PUSH 01/20/18 22:30 01/22/18 12:51 (Glucagon Inj) 1 mg UNSCH PRN OTHER 01/20/18 22:30 (Aspirin Chew) 81 mg DAILY CHEW 01/21/18 09:00 01/28/18 08:10 (Lipitor) 10 mg DAILY PO 01/21/18 09:00 01/28/18 08:10 (Coreg) 25 mg Q12HR PO 01/20/18 22:30 01/28/18 08:10 (Folate) 1 mg DAILY PO 01/21/18 09:00 01/28/18 08:10 (Pill Splitter) 1 ea UNSCH PRN OTHER 01/21/18 16:00 (Miralax) 17 gm DAILY PO 01/24/18 09:00 01/28/18 08:12 Levofloxacin/ Dextrose 100 ml @ 100 mls/hr Q24H IV 01/24/18 09:00 01/28/18 08:11 (Protonix) 40 mg DAILY PO 01/27/18 09:00 01/28/18 08:10 (Mariam-Colace) 1 tab BID PO 01/26/18 21:00 01/28/18 08:10 (Milk Of Magnesia Liq) 30 ml Q12H PRN PO 01/26/18 11:30 01/26/18 15:40 (Senokot) 17.2 mg Q12H PRN PO 01/26/18 11:30 01/26/18 15:40 (Dulcolax Supp) 10 mg DAILY PRN RECTAL 01/26/18 11:30 (Lactulose Liq) 30 ml DAILY PRN PO 01/26/18 11:30 01/27/18 20:24 A/P Problem List: (1) CHF exacerbation ICD Code: I50.9 - Heart failure, unspecified Status: Acute (2) Diabetic foot infection ICD Code: E11.69 - Diabetic foot infection; L08.9 - Local infection of the skin and subcutaneous tissue, unspecified Status: Acute (3) DM (diabetes mellitus) ICD Code: E11.9 - Diabetes mellitus Status: Chronic (4) Constipation ICD Code: K59.00 - Constipation, unspecified Status: Acute (5) Heartburn ICD Code: R12 - Heartburn Status: Acute Assessment and Plan 53 y/o male with a history of DM, CAD, diabetic neuropathy, CHF on heart transplant list, multiple toe amputations presented to the ED with complaints of shortness of breath and fluid overload. CHF exacerbation, acute on chronic Chest x-ray reviewed and shows mild cardiomegaly BMP 2776 -Initially treated with Lasix 40 mg IV twice a day. -BMP in a.m. 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 Severely reduced systolic function with an ejection fraction of less than 20%. Mild to moderate tricuspid valve regurgitation, mild mitral valve regurgitation. Diabetic foot infection/osteomyelitis Foot x-ray reviewed and shows right soft tissue swelling ESR 28, CRP 69 -Podiatry consulted. -Patient given 1 dose of Vanco in the ED, pharmacy consult, follow closely patient with history of renal failure while on vancomycin -Wound cultures growing Providencia Rettgeri and Citrobacter Freundii. -Pain management with IV morphine -Foot MRI showed some myelitis distally of the first and fifth metatarsals. -Status post right foot partial fifth ray amputation bone biopsy on 01/24 -Continue IV Levaquin - Consult ID for further recommendations. -ID recommendations appreciated. Continue Levaquin and follow pathology upon biopsy. If he has only positive culture for 2 organisms. He recovered on 01/20, then he can be switched to oral Levaquin and treated for a week. Because of his renal dysfunction, if he has residual osteomyelitis based on pathology, consideration should be given to additional surgery to get to healthy noninfected bone. -01/28 Pathology pending. Continue IV Levaquin. Diabetes mellitus type II, chronic, -Accu-Cheks with sliding scale insulin -Diabetic diet -Continue home long-acting insulin - Blood sugars acceptable. Hypoglycemia Patient had blood sugar in the 70s on 01/24. Patient started D5 half NS throughout surgery. Patient's blood sugars have remained stable in the 150s. Will discontinue D5. 01/26 Hypoglycemia resolved. No further episodes of hypoglycemia and blood sugars stable. Acute kidney injury Creatinine trended up to 1.67 on 01/23 and continues to trend up, today 1.94. Nephrology consulted. Appreciate recommendations. Renal ultrasound shows normal evaluation of the kidneys and bladder. Suspected ATN from IV vancomycin or from infection, interstitial nephritis also in the differential diagnosis. Vancomycin has been discontinued. Check urine sodium and eosinophils. Continue to monitor BUN and creatinine, history I's and O's and avoid nephrotoxins. 01/26 Bladder scan negative. Urine eosinophils ordered 01/24 but not sent to date , will reorder today. Creatinine is improving trending down from 1.94-1.76. 01/28 creatinine trending down. Patient having good urine output. Continue to monitor BUN and creatinine. Hyponatremia Sodium seems to be stable and slowly improving. Sodium today is 132. Continue to monitor BMP. Constipation Continue constipation protocol. 01/27 No BM yet after Miralax admisnitration. Will Rx Magnesium Citrate. 01/28 constipation resolved. Continue stool softeners. Heartburn Patient's heartburn has improved. Continue PPI and Maalox as needed. DVT prophylaxis: Heparin Discharge Planning Continue to monitor on the medical floor. Discharge pending improvement of patient's renal function. Needs podiatry and ID clearance. 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
[2018-01-29] VITALS (9 sets, daily range): BP systolic 120–142; BP diastolic 75–89; PULSE 61–72; RESP 16–20; TEMP 97.5–98.4; O2SAT 99–100
[2018-01-29] MEDS: MORPHINE SULFATE 4 MG/ML INJ IV PUSH PRN ×7 (02:39→21:45)
[2018-01-29] MEDS: SODIUM CHLORIDE 0.9% FLUSH 10 ML FLUSH IV FLUSH PRN ×2 (05:36→18:09)
[2018-01-29] MEDS: INSULIN ASPART SUPPLEMENTAL SCALE SQ SCH ×4 (08:00→21:46)
[2018-01-29] MEDS: LEVOFLOXACIN 500 MG PREMIX INJ 100 ML IV SCH (08:34)
[2018-01-29] MEDS: SODIUM CHLORIDE 0.9% FLUSH 10 ML FLUSH IV FLUSH SCH ×2 (08:34→21:45)
[2018-01-29] MEDS: PANTOPRAZOLE SOD 40 MG DELAYED RELEASE TAB PO SCH (08:34)
[2018-01-29] MEDS: ASPIRIN 81 MG CHEW TAB CHEW SCH (08:35)
[2018-01-29] MEDS: HEPARIN SODIUM - SQ 10,000 UNITS/ML VIAL SQ SCH ×2 (08:35→21:45)
[2018-01-29] MEDS: DOCUSATE SODIUM 50 MG/SENNA 8.6 MG TAB PO SCH ×2 (08:35→21:45)
[2018-01-29] MEDS: POLYETHYLENE GLYCOL 17 GM PKG PO SCH (08:35)
[2018-01-29] MEDS: ATORVASTATIN 10 MG TAB PO SCH (08:35)
[2018-01-29] MEDS: FOLIC ACID 1 MG TAB PO SCH (08:35)
[2018-01-29] MEDS: CARVEDILOL 12.5 MG TAB PO SCH ×2 (08:35→21:45)
[2018-01-29 10:10] LABS: CREATININE 1.4 MG/DL (0.60-1.30)
--- NOTE | 2018-01-29 11:18 | HHI.NPPN ---
Subjective General Problems: Anemia Renal Failure: Chronic, Acute History of Present Illness This is a 53-year-old male with a past medical history of diabetes mellitus, which is longstanding, history of recent acute kidney injury, ischemic heart disease, congestive heart failure with history of being on heart transplant list , came to the hospital with complaint of right lower extremity cellulitis and shortness of breath.Nephrology consulted to see the patient because of elevated BUN and creatinine. The patient has a history of acute kidney injury when he was here end of October, and his creatinine improved and went down to 1.1, 1.2 and that is what he came in with, and now the creatinine is 1.6 and gone up to 1.9. The patient has been diagnosed with a right foot infection and followed by the podiatry and also seen by the vascular surgery, and he is supposed to go for surgery now with left plantar fifth ray amputation and bone biopsy. The patient is n.p.o. at present. Vascular surgeon has seen the patient, and impression was that the blood flow is good and the wound should heal adequately. The patient has some nausea today, but there is no vomiting. There is no history of diarrhea. No dysuria or hematuria. The patient was also seen by cardiology for his cardiomyopathy, and the impression was to optimize medically before the surgery. During this admission, the patient has been getting vancomycin. The last dose was given yesterday morning and then it was stopped, and currently he is on Levaquin. Potassium is on the lower side, and the patient also has been getting potassium but now it is 5.0. Additional Remarks Denies any SOB. No acute complaints. Reports feeling depressed. (Joya Bell) Review of Systems Respiratory Respiratory Remarks Denies SOB (Joya Bell) Cardiovascular Cardiac Remarks Denies CP (Joya Bell) Gastrointestinal GI Remarks denies abdominal pain (Joya Bell) Psych Psych: Depression (Joya Bell) Objective Data Data Vital Signs Date Time Temp Pulse Resp B/P (MAP) Pulse Ox O2 Delivery O2 Flow Rate FiO2 01/29/18 08:30 Room Air 01/29/18 08:00 97.6 62 18 142/89 (106) 100 01/29/18 04:04 61 01/29/18 04:00 97.7 62 20 136/82 (100) 100 01/29/18 00:01 64 01/29/18 00:00 97.8 72 20 120/82 (95) 100 01/28/18 20:00 96.0 61 16 113/70 (84) 99 01/28/18 19:43 63 01/28/18 19:00 Room Air 01/28/18 16:00 59 01/28/18 16:00 98.1 60 18 120/75 (90) 96 01/28/18 12:00 60 01/28/18 12:00 97.9 61 20 128/75 (92) 100 (Joya Bell) -: 01/28/18 0637 01/29/18 0740 Physical Exam General Appearance: Well Developed, Well Nourished, No Acute Distress (Joya Bell) Throat Throat Exam: Oral Mucosa [place] & Moist (Joya Bell) Pulmonary Resp Exam: Diminished Breath Sounds (Joya Bell) Cardiology CV Exam: Regular, Normal Sinus Rhythm (Joya Bell) Gastrointestinal/Abdomen GI Exam: Soft, Non-Tender, Bowel Sounds Present (Joya Bell) Integumentary Skin Exam: Dry, Intact (Joya Bell) Extremeties Extremities Exam: No Edema (Joya Bell) Neurologic Neuro Exam: Alert, Awake, Oriented, Speech Clear (Joya Bell) Assessment/Plan Assessment Summary: ANDREI/Acute Renal Failure Problem List: (1) ANDREI (acute kidney injury) ICD Codes: N17.9 - Acute kidney failure, unspecified Plan: ANDREI likely due to contrast exposure from CTA, vancomycin exposure in setting of infection. Possible interstitial nephritis - urine eosinophils pending Renal US - normal study, ascites seen. Plan Creatinine improving at 1.4 today Good UOP Avoid any nephrotoxins. Continue to monitor BMP (2) Amputated toe of left foot ICD Codes: Z89.422 - Amputated toe of left foot Status: Acute Plan: s/p surgery 01/24 Continue to follow with podiatry (3) Toe osteomyelitis, left ICD Codes: M86.9 - Toe osteomyelitis, left Status: Acute Plan: on Levaquin, follow with ID (4) DM (diabetes mellitus) ICD Codes: E11.9 - Diabetes mellitus Status: Chronic (5) CHF (congestive heart failure) ICD Codes: I50.9 - Heart failure, unspecified Status: Chronic Plan: continue to monitor Initially given lasix for CHF (6) Hyponatremia ICD Codes: E87.1 - Hypo-osmolality and hyponatremia Plan: due to CHF. Continue to monitor (Joya Bell) Problem List: (1) ANDREI (acute kidney injury) ICD Codes: N17.9 - Acute kidney failure, unspecified Plan: ANDREI likely due to contrast exposure from CTA, vancomycin exposure in setting of infection. Possible interstitial nephritis - urine eosinophils pending Renal US - normal study, ascites seen. Plan Creatinine improving at 1.4 today Good UOP Avoid any nephrotoxins. Continue to monitor BMP Patient seen and examined, agree with above. Creatinine is improving. (2) Amputated toe of left foot ICD Codes: Z89.422 - Amputated toe of left foot Status: Acute Plan: s/p surgery 01/24 Continue to follow with podiatry (3) Toe osteomyelitis, left ICD Codes: M86.9 - Toe osteomyelitis, left Status: Acute Plan: on Levaquin, follow with ID (4) DM (diabetes mellitus) ICD Codes: E11.9 - Diabetes mellitus Status: Chronic (5) CHF (congestive heart failure) ICD Codes: I50.9 - Heart failure, unspecified Status: Chronic Plan: continue to monitor Initially given lasix for CHF (6) Hyponatremia ICD Codes: E87.1 - Hypo-osmolality and hyponatremia Plan: due to CHF. 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
--- NOTE | 2018-01-29 17:18 | HHI.PR ---
Subjective Remarks Deferred entry, the patient was seen earlier at 11:45 AM. The patient denies chest pain, shortness of breath, denies abdominal pain, nausea vomiting. Vital signs are stable. Objective Vitals Vital Signs Date Time Temp Pulse Resp B/P (MAP) Pulse Ox O2 Delivery O2 Flow Rate FiO2 01/29/18 12:00 61 01/29/18 12:00 97.6 62 20 135/86 (102) 100 01/29/18 08:30 Room Air 01/29/18 08:00 62 01/29/18 08:00 97.6 62 18 142/89 (106) 100 01/29/18 04:04 61 01/29/18 04:00 97.7 62 20 136/82 (100) 100 01/29/18 00:01 64 01/29/18 00:00 97.8 72 20 120/82 (95) 100 01/28/18 20:00 96.0 61 16 113/70 (84) 99 01/28/18 19:43 63 01/28/18 19:00 Room Air I/O 01/28/18 01/28/18 01/28/18 01/29/18 01/29/18 01/29/18 07:00 15:00 23:00 07:00 15:00 23:00 Intake Total 940 ml 100 ml 1320 ml 380 ml Output Total 500 ml 380 ml Balance 940 ml 100 ml 820 ml 0 ml Intake Oral 940 ml 1320 ml 380 ml IV Total 100 ml Output Urine Total 500 ml 380 ml # Voids 9 10 # Bowel Movements 3 10 0 Result Diagram: 01/28/18 0637 01/29/18 0740 Imaging Last Impressions Renal Ultrasound 01/25/18 0000 Signed Impressions: Service Date/Time: Thursday, January 25, 2018 10:44 - CONCLUSION: Normal above evaluation of the kidneys and bladder. There is free fluid identified within Cintron's pouch as well as within the pelvis. This may reflect ascites.. Susan Yang MD Foot X-Ray 01/24/18 0000 Signed Impressions: Service Date/Time: Wednesday, January 24, 2018 21:52 - CONCLUSION: Slightly greater than half of the distal fifth metatarsal has been resected in the interim. No evidence of an acute complication. Clifford Montaño MD Foot MRI 01/23/18 0000 Signed Impressions: Service Date/Time: January 18:35 - CONCLUSION: 1. Osteomyelitis distally of the first and fifth metatarsals as above. Also probably patchy osteomyelitis within the phalanges of the little toe. The other toes have been previously amputated. 2. No abscess. Clifford Montaño MD Aorta w/Runoff CTA 01/23/18 0000 Signed Impressions: Service Date/Time: January 14:44 - CONCLUSION: 1. No significant aortic occlusive disease or iliac inflow stenosis. 2. Diffusely calcified superficial femoral arteries bilaterally without significant outflow stenosis. 3. Limited three-vessel runoff to the foot on the right with diffuse distal posterior tibial disease and bulky calcifications of the proximal peroneal artery. 4. Limited three-vessel runoff to the mid to distal left calf. The distal runoff vessels are heavily calcified and incompletely opacified beyond the mid calf for definitive diagnosis. 5. Trace right pleural effusion with very subtle free fluid in the abdomen and mild diffuse soft tissue anasarca in the lower abdomen consistent with mild positive fluid balance. Dl Mazariegos MD Lower Extremity Ultrasound 01/20/18 1511 Signed Impressions: Service Date/Time: Saturday, January 20, 2018 15:26 - CONCLUSION: 1. No evidence for DVT. 2. Prominent right inguinal lymph nodes are present. Alexis Villalobos MD Chest X-Ray 01/20/18 1404 Signed Impressions: Service Date/Time: Saturday, January 20, 2018 14:26 - CONCLUSION: 1. COPD changes and mild cardiomegaly. Kd Estrada MD Objective Remarks AAox3 nad Clear lungs BL S1S2 RRR, no MRG abdomen obese, tender to palpation of suprapubic region. (+) 1 edema of BL lower extremities Procedures Status post Right foot partial 5th ray amputation with bone biopsy Medications and IVs Current Medications Medications (Trade) Dose Ordered Sig/Orville Route Start Time Stop Time Status Last Admin (NS Flush) 2 ml UNSCH PRN IV FLUSH 01/20/18 19:00 01/29/18 05:36 (NS Flush) 2 ml BID IV FLUSH 01/20/18 21:00 01/29/18 08:34 (Tylenol) 650 mg Q4H PRN PO 01/20/18 19:00 (Zofran Inj) 4 mg Q6H PRN IVP 01/20/18 19:00 01/24/18 08:37 (Tylenol) 650 mg Q6H PRN PO 01/20/18 19:00 (Narcan Inj) 0.4 mg UNSCH PRN IV PUSH 01/20/18 19:00 01/26/18 17:36 (NovoLOG SUPPLEMENTAL SCALE) 1 ACHS SLIDING SCALE SQ 01/20/18 21:00 01/28/18 17:00 (Morphine Inj) 2 mg Q3H PRN IV PUSH 01/20/18 20:30 01/24/18 17:54 (Morphine Inj) 4 mg Q3H PRN IV PUSH 01/20/18 20:30 01/29/18 15:17 (Heparin Inj) 5,000 units Q12HR SQ 01/21/18 21:00 01/29/18 08:35 (D50w (Vial) Inj) 50 ml UNSCH PRN IV PUSH 01/20/18 22:30 01/22/18 12:51 (Glucagon Inj) 1 mg UNSCH PRN OTHER 01/20/18 22:30 (Aspirin Chew) 81 mg DAILY CHEW 01/21/18 09:00 01/29/18 08:35 (Lipitor) 10 mg DAILY PO 01/21/18 09:00 01/29/18 08:35 (Coreg) 25 mg Q12HR PO 01/20/18 22:30 01/29/18 08:35 (Folate) 1 mg DAILY PO 01/21/18 09:00 01/29/18 08:35 (Pill Splitter) 1 ea UNSCH PRN OTHER 01/21/18 16:00 (Miralax) 17 gm DAILY PO 01/24/18 09:00 01/29/18 08:35 Levofloxacin/ Dextrose 100 ml @ 100 mls/hr Q24H IV 01/24/18 09:00 01/29/18 08:34 (Protonix) 40 mg DAILY PO 01/27/18 09:00 01/29/18 08:34 (Mariam-Colace) 1 tab BID PO 01/26/18 21:00 01/29/18 08:35 (Milk Of Magnesia Liq) 30 ml Q12H PRN PO 3/18/18 11:30 01/26/18 15:40 (Senokot) 17.2 mg Q12H PRN PO 01/26/18 11:30 01/26/18 15:40 (Dulcolax Supp) 10 mg DAILY PRN RECTAL 01/26/18 11:30 (Lactulose Liq) 30 ml DAILY PRN PO 01/26/18 11:30 01/27/18 20:24 A/P Problem List: (1) CHF exacerbation ICD Code: I50.9 - Heart failure, unspecified Status: Acute (2) Diabetic foot infection ICD Code: E11.69 - Diabetic foot infection; L08.9 - Local infection of the skin and subcutaneous tissue, unspecified Status: Acute (3) DM (diabetes mellitus) ICD Code: E11.9 - Diabetes mellitus Status: Chronic (4) Constipation ICD Code: K59.00 - Constipation, unspecified Status: Acute (5) Heartburn ICD Code: R12 - Heartburn Status: Acute Assessment and Plan 53 y/o male with a history of DM, CAD, diabetic neuropathy, CHF on heart transplant list, multiple toe amputations presented to the ED with complaints of shortness of breath and fluid overload. CHF exacerbation, acute on chronic Chest x-ray reviewed and shows mild cardiomegaly BMP 2776 -Initially treated with Lasix 40 mg IV twice a day. -BMP in a.m. -Cardiology consulted, patient with [facility] and no outpatient transmission specialist -Fluid restriction -01/28 2D echocardiogram shows mildly dilated left ventricle. Severely reduced systolic function with an ejection fraction of less than 20%. Mild to moderate tricuspid valve regurgitation, mild mitral valve regurgitation. - 01/29 CHF is now stable. Diuretics on hold due to elevated creatinine. Diabetic foot infection/osteomyelitis Foot x-ray reviewed and shows right soft tissue swelling ESR 28, CRP 69 -Podiatry consulted. -Patient given 1 dose of Vanco in the ED, pharmacy consult, follow closely patient with history of renal failure while on vancomycin -Wound cultures growing Providencia Rettgeri and Citrobacter Freundii. -Pain management with IV morphine -Foot MRI showed some myelitis distally of the first and fifth metatarsals. -Status post right foot partial fifth ray amputation bone biopsy on 01/24 -Continue IV Levaquin - Consult ID for further recommendations. -ID recommendations appreciated. Continue Levaquin and follow pathology upon biopsy. If he has only positive culture for 2 organisms. He recovered on 01/20, then he can be switched to oral Levaquin and treated for a week. Because of his renal dysfunction, if he has residual osteomyelitis based on pathology, consideration should be given to additional surgery to get to healthy noninfected bone. -01/28 Pathology pending. Continue IV Levaquin. -01/29 pathology shows that the patient had gangrene of the gross and acute osteomyelitis, however the bony surgical margin of resection appears to be free of involvement. Diabetes mellitus type II, chronic, -Accu-Cheks with sliding scale insulin -Diabetic diet -Continue home long-acting insulin - Blood sugars acceptable. Hypoglycemia Patient had blood sugar in the 70s on 01/24. Patient started D5 half NS throughout surgery. Patient's blood sugars have remained stable in the 150s. Will discontinue D5. 01/26 Hypoglycemia resolved. No further episodes of hypoglycemia and blood sugars stable. Acute kidney injury Creatinine trended up to 1.67 on 01/23 and continues to trend up, today 1.94. Nephrology consulted. Appreciate recommendations. Renal ultrasound shows normal evaluation of the kidneys and bladder. Suspected ATN from IV vancomycin or from infection, interstitial nephritis also in the differential diagnosis. Vancomycin has been discontinued. Check urine sodium and eosinophils. Continue to monitor BUN and creatinine, history I's and O's and avoid nephrotoxins. 01/26 Bladder scan negative. Urine eosinophils ordered 01/24 but not sent to date , will reorder today. Creatinine is improving trending down from 1.94-1.76. 01/28 creatinine trending down. Patient having good urine output. Continue to monitor BUN and creatinine. 01/29 creatinine continues to trend down. Creatinine down to 1.4 today. Patient has good urine output. Continue to monitor BUN and creatinine, strict I 's and O's and avoid nephrotoxins. Hyponatremia Sodium seems to be stable and slowly improving. Sodium today is 132. Continue to monitor BMP. Constipation Continue constipation protocol. 01/27 No BM yet after Miralax admisnitration. Will Rx Magnesium Citrate. 01/28 constipation resolved. Continue stool softeners. Heartburn Patient's heartburn has improved. Continue PPI and Maalox as needed. DVT prophylaxis: Heparin Discharge Planning Possible discharge in a.m. Pending nephrology and podiatry clearance. Problem Qualifiers (1) CHF exacerbation: Qualified Codes: I50.23 - Acute on chronic systolic (congestive) heart failure (2) DM (diabetes mellitus): Qualified Codes: E11.51 - Type 2 diabetes mellitus with diabetic peripheral angiopathy without gangrene; Z79.4 - penitentiary (current) use of insulin (3) Constipation: Qualified Codes: K59.03 - Drug induced constipation Maxx Martinez MD Jan 29, 2018 17:18
--- NOTE | 2018-01-29 17:30 | HHI.IDPN ---
Note Infectious Disease Note Patient feels okay. No complaints. No distress. Afebrile. Post fifth ray amputation. Pathology report on the surgical specimen shows no evidence of osteomyelitis at the margins. 53-year-old white male who has had history of osteomyelitis of the foot in the past. The patient was evaluated in the emergency department on 01/20 when he presented with shortness of breath. He was also noted to be complaining of worsening wound at the lateral aspect of the right foot. He was noted to have pain at the level of 9-10/10. He was evaluated for pain at the right foot. A wound culture was taken at the right lateral aspect and it came back with Providencia and Citrobacter. PAST MEDICAL HISTORY: Diabetes mellitus, congestive heart failure, coronary artery disease, left forefoot amputation, prior resection of toes on the right foot except for toe #5, gastroesophageal reflux disease, history of DVT of the lower extremity, ischemic heart disease, left forearm surgery. The patient is on the transplant list for a cardiac transplant. ALLERGIES: AMOXICILLIN AND OXYCODONE. MEDICATIONS: Current Medications Medications (Trade) Dose Ordered Sig/Orville Route PRN Reason Start Time Stop Time Status Last Admin Dose Admin Sodium Chloride (NS Flush) 2 ml UNSCH PRN IV FLUSH FLUSH AFTER USING IV ACCESS 01/20/18 19:00 01/29/18 05:36 Sodium Chloride (NS Flush) 2 ml BID IV FLUSH 01/20/18 21:00 01/29/18 08:34 Acetaminophen (Tylenol) 650 mg Q4H PRN PO TEMP > 100.4 01/20/18 19:00 Ondansetron HCl (Zofran Inj) 4 mg Q6H PRN IVP NAUSEA OR VOMITING 01/20/18 19:00 01/24/18 08:37 Acetaminophen (Tylenol) 650 mg Q6H PRN PO PAIN SCALE 1 TO 2 01/20/18 19:00 Naloxone HCl (Narcan Inj) 0.4 mg UNSCH PRN IV PUSH SEE LABEL COMMENTS 01/20/18 19:00 01/26/18 17:36 Insulin Aspart (NovoLOG SUPPLEMENTAL SCALE) 1 ACHS SLIDING SCALE SQ 01/20/18 21:00 01/28/18 17:00 Morphine Sulfate (Morphine Inj) 2 mg Q3H PRN IV PUSH pain 1-5 01/20/18 20:30 01/24/18 17:54 Morphine Sulfate (Morphine Inj) 4 mg Q3H PRN IV PUSH pain 6-10 01/20/18 20:30 01/29/18 15:17 Heparin Sodium (Porcine) (Heparin Inj) 5,000 units Q12HR SQ 01/21/18 21:00 01/29/18 08:35 Dextrose (D50w (Vial) Inj) 50 ml UNSCH PRN IV PUSH HYPOGLYCEMIA - SEE COMMENTS 01/20/18 22:30 01/22/18 12:51 Glucagon (Glucagon Inj) 1 mg UNSCH PRN OTHER HYPOGLYCEMIA-SEE COMMENTS 01/20/18 22:30 Aspirin (Aspirin Chew) 81 mg DAILY CHEW 01/21/18 09:00 01/29/18 08:35 Atorvastatin Calcium (Lipitor) 10 mg DAILY PO 01/21/18 09:00 01/29/18 08:35 Carvedilol (Coreg) 25 mg Q12HR PO 01/20/18 22:30 01/29/18 08:35 Folic Acid (Folate) 1 mg DAILY PO 01/21/18 09:00 01/29/18 08:35 Miscellaneous (Pill Splitter) 1 ea UNSCH PRN OTHER SEE LABEL COMMENTS 01/21/18 16:00 Polyethylene Glycol (Miralax) 17 gm DAILY PO 01/24/18 09:00 01/29/18 08:35 Levofloxacin/ Dextrose 100 ml @ 100 mls/hr Q24H IV 01/24/18 09:00 01/29/18 08:34 Pantoprazole Sodium (Protonix) 40 mg DAILY PO 01/27/18 09:00 01/29/18 08:34 Senna/Docusate Sodium (Mariam-Colace) 1 tab BID PO 01/26/18 21:00 01/29/18 08:35 Magnesium Hydroxide (Milk Of Magnesia Liq) 30 ml Q12H PRN PO Mild constipation 01/26/18 11:30 01/26/18 15:40 Sennosides (Senokot) 17.2 mg Q12H PRN PO Moderate constipation 01/26/18 11:30 01/26/18 15:40 Bisacodyl (Dulcolax Supp) 10 mg DAILY PRN RECTAL SEVERE CONSITIPATION 01/26/18 11:30 Lactulose (Lactulose Liq) 30 ml DAILY PRN PO SEVERE CONSITIPATION 01/26/18 11:30 01/27/18 20:24 PHYSICAL EXAMINATION: GENERAL: No acute distress. HEAD, EARS, EYES, NOSE AND THROAT: No icterus. Oropharynx moist, mucosa without lesions. NECK: Supple without adenopathy. LUNGS: Clear breath sounds. HEART: Regular S1 and S2. No murmurs, rubs or gallops. EXTREMITIES: The right foot has a surgical dressing in place. The patient is status post amputation of the right fifth digit. SKIN: No diffuse rash. Dressing removed and wound inspected. The wound is clean. Sutures overlying the surgical site. The site is dry. NEUROLOGIC: No gross focal findings. PSYCHIATRIC: Calm and cooperative. IMPRESSION: 1. Osteomyelitis involving fifth digit of the right foot. 2. Status post right partial fifth ray amputation. Preop culture had growth of Citrobacter and Providencia. Operative culture had procidentia and an anaerobic gram-positive john. 3. Acute kidney disease. The patient is known to have prior acute insult to the kidney back in 11/2017. RECOMMENDATIONS: Change Levaquin to p.o. and treat with 500 mg p.o. daily for another 5 days. I will sign off now. Darek Alves MD Jan 29, 2018 17:30
[2018-01-30] VITALS: PULSE 64
[2018-01-30] MEDS: MORPHINE SULFATE 4 MG/ML INJ IV PUSH PRN ×4 (00:43→12:22)
[2018-01-30] MEDS: ONDANSETRON HCL 4 MG/2 ML VIAL IVP PRN (03:42)
[2018-01-30] MEDS: SODIUM CHLORIDE 0.9% FLUSH 10 ML FLUSH IV FLUSH PRN (03:43)
[2018-01-30 04:00] VITALS: BP 123/69; PULSE 65; RESP 18; TEMP 97.7; O2SAT 100
--- NOTE | 2018-01-30 07:35 | MP ---
cc: Sue Cheng DPEnzo DATE OF OPERATION: 01/24/2018 DATE OF SURGERY: 01/24/2018 INDICATION FOR SURGERY: The patient presented with a chronic ulceration with infection to the plantar aspect of the right fifth metatarsal head area. He was noted to have changes consistent with osteomyelitis on further imaging. I discussed with the patient that we could remove the infected bone, remove the ulceration to the right lateral foot, and he consented to undergo partial fifth ray amputation, right foot, with bone biopsy. DESCRIPTION OF PROCEDURE: He was seen in preoperative holding by myself, nursing staff, and anesthesia, where the correct patient, side, and site were all confirmed to be correct and the right foot. He was then taken to the surgical suite. Right foot was prepped and draped in normal sterile fashion, followed by attention directed to the right lateral foot. A plantar ulceration was noted to be made at the fifth metatarsal head area and then incision was made encompassing the fifth digit and the ulceration, down to the level of the midshaft 5th metatarsal, where it was transected and the specimen sent as partial fifth ray, right foot was sent to pathology with the distal aspect of the fifth metatarsal, the fifth toe and the wound. Following this, bone from the residual fifth metatarsal was taken and sent as biopsy of fifth residual metatarsal to pathology. A culture was then taken of the wound, followed by irrigation with 3 liters normal sterile saline. The wound did appear to be very healthy and bleeding with no sign of necrotic tissue or infection after irrigation was performed, followed by primary closure with 2-0 nylon suture, followed by dressing consisting of Xeroform, 4 x 4's, ABD, cast padding and Vahe. He will be nonweightbearing to the right foot and await bone biopsy to determine further antibiotics required. SHORT OPERATIVE NOTE SURGEON: Sue Cheng. PROCESSING TECHNOLOGIST: Staff. PREOPERATIVE DIAGNOSIS: Osteomyelitis, right fifth metatarsal with chronic ulcer. POSTOPERATIVE DIAGNOSIS: Osteomyelitis, right fifth metatarsal with chronic ulcer. DETAILS OF PROCEDURE: Right foot partial fifth ray amputation with bone biopsy. PATHOLOGY: 1. Partial fifth ray, right foot. 2. Residual fifth metatarsal for bone biopsy, right foot. 3. Culture right foot. ESTIMATED BLOOD LOSS: 20 mL ANESTHESIA: General endotracheal anesthesia plus local consisting of 10 mL of 0.5% Marcaine plain. CONDITION: Stable to PACU. DISPOSITION: Nonweightbearing with right foot. Await bone biopsy to determine further treatment. MINESH Calixto , 06:58 AM , 07:34 AM
[2018-01-30 08:00] VITALS: BP 120/72; PULSE 60; PULSE 65; RESP 18; TEMP 98.5; O2SAT 99
[2018-01-30] MEDS: INSULIN ASPART SUPPLEMENTAL SCALE SQ SCH ×3 (08:00→17:00)
[2018-01-30] MEDS ORDERED: LEVOFLOXACIN 500 MG TAB PO SCH (09:00)
[2018-01-30] MEDS: ASPIRIN 81 MG CHEW TAB CHEW SCH (09:02)
[2018-01-30] MEDS: CARVEDILOL 12.5 MG TAB PO SCH (09:02)
[2018-01-30] MEDS: ATORVASTATIN 10 MG TAB PO SCH (09:02)
[2018-01-30] MEDS: FOLIC ACID 1 MG TAB PO SCH (09:02)
[2018-01-30] MEDS: PANTOPRAZOLE SOD 40 MG DELAYED RELEASE TAB PO SCH (09:02)
[2018-01-30] MEDS: HEPARIN SODIUM - SQ 10,000 UNITS/ML VIAL SQ SCH (09:03)
[2018-01-30] MEDS: DOCUSATE SODIUM 50 MG/SENNA 8.6 MG TAB PO SCH (09:03)
[2018-01-30 09:55] LABS: HEMOGLOBIN 9.6 GM/DL (13.0-17.0); MEAN CELL VOLUME 72.3 FL (80.0-100.0); MEAN CORPUSCULAR HEMOGLOBIN 22.4 PG (27.0-34.0); MEAN CORPUSCULAR HGB CONC 30.9 % (32.0-36.0); MEAN PLATELET VOLUME 8.7 FL (7.0-11.0); PLATELET COUNT 184 TH/MM3 (150-450); RED BLOOD COUNT 4.28 MIL/MM3 (4.50-5.90); RED CELL DISTRIBUTION WIDTH 20.7 % (11.6-17.2); WHITE BLOOD COUNT 5.5 TH/MM3 (4.0-11.0)
[2018-01-30 10:21] LABS: BICARBONATE 19.9 MEQ/L (21.0-32.0); CALCIUM 8.2 MG/DL (8.5-10.1); CREATININE 1.18 MG/DL (0.60-1.30)
[2018-01-30] MEDS: SODIUM CHLORIDE 0.9% FLUSH 10 ML FLUSH IV FLUSH SCH (10:27)
[2018-01-30 12:00] VITALS: BP 136/96; PULSE 68; RESP 20; TEMP 97.9; O2SAT 100
[2018-01-30] MEDS: POLYETHYLENE GLYCOL 17 GM PKG PO SCH (12:22)
[2018-01-30] MEDS ORDERED: LEVA500T33 PO (14:06)
[2018-01-30] MEDS ORDERED: NOVOLOGP2 SQ (14:06)
--- NOTE | 2018-01-30 14:08 | HHI.DCPOC ---
Discharge Care Plan Diagnosis: (1) Amputation stump infection (2) ANDREI (acute kidney injury) (3) Constipation (4) Heartburn (5) Toe osteomyelitis, left (6) Toe amputation status (7) Non compliance with medical treatment (8) DM (diabetes mellitus), type 2, uncontrolled w/neurologic complication Goals to Promote Your Health * To prevent worsening of your condition and complications * To maintain your health at the optimal level Directions to Meet Your Goals Take your medications as prescribed Follow your dietary instruction Follow activity as directed Keep your appointments as scheduled Take your immunizations and boosters as scheduled If your symptoms worsen call your PCP, if no PCP go to Urgent Care Center or Emergency Room Smoking is Dangerous to Your Health. Avoid second hand smoke Call the 24-hour hour crisis hotline for domestic abuse at Maxx Martinez MD Jan 30, 2018 14:08
--- NOTE | 2018-01-30 14:18 | HHI.DS ---
Discharge Summary Admission Date Jan 20, 2018 at 17:46 Discharge Date: Jan 30, 2018 Admitting Diagnosis CHF exacerbation, cellulitis right lower extremity (1) CHF exacerbation ICD Code: I50.9 - Heart failure, unspecified Diagnosis: Principal Status: Resolved (2) Diabetic foot infection ICD Code: E11.69 - Diabetic foot infection; L08.9 - Local infection of the skin and subcutaneous tissue, unspecified Diagnosis: Principal Status: Resolved (3) DM (diabetes mellitus) ICD Code: E11.9 - Diabetes mellitus Diagnosis: Principal Status: Chronic (4) Constipation ICD Code: K59.00 - Constipation, unspecified Diagnosis: Principal Status: Acute (5) Heartburn ICD Code: R12 - Heartburn Diagnosis: Principal Status: Acute (6) Hyponatremia ICD Code: E87.1 - Hypo-osmolality and hyponatremia Diagnosis: Principal (7) Tobacco abuse ICD Code: Z72.0 - Tobacco use Diagnosis: Principal Status: Chronic (8) Osteomyelitis ICD Code: M86.9 - Osteomyelitis, unspecified Diagnosis: Principal Status: Acute (9) Toe osteomyelitis, right ICD Code: M86.9 - Osteomyelitis, unspecified Diagnosis: Principal (10) Partial nontraumatic amputation of right foot ICD Code: Z89.431 - Acquired absence of right foot Diagnosis: Principal Procedures Status post Right foot partial 5th ray amputation with bone biopsy Brief History - From Admission 53 y/o male with a history of DM, CAD, diabetic neuropathy, CHF on heart transplant list, multiple toe amputations presented to the ED with complaints of shortness of breath and fluid overload. Patient states over the last 3 days he's had a 15 pound weight gain and was feeling very short of breath. He states that shortness of breath was worse with exertion and unable to lay flat. He is also complaining of a right outer foot ulcer pain, 10/10, throbbing, constant, with radiation up to the calf, with associated fevers and chills, worse with movement and better with morphine. Denies any nausea or vomiting. Last Saturday he was seen by his outside deliverer for the ulcer that was in size at this time. He called his outside deliverer today and she encouraged him to come to the ED. He does have his Life vest in place. Was placed at [facility] recently, but has had one in place for the last 3 years, placed originally in [place]. No filters assembler at this time. He states every time he goes to follow-up with one He returns to the hospital. CBC/BMP: 01/30/18 0837 01/30/18 0837 Significant Findings Laboratory Tests Test 01/27/18 17:21 01/28/18 06:37 01/28/18 17:35 01/29/18 07:40 Blood Urea Nitrogen 22 MG/DL (7-18) 21 MG/DL (7-18) Creatinine 1.70 MG/DL (0.60-1.30) 1.59 MG/DL (0.60-1.30) 1.40 MG/DL (0.60-1.30) Random Glucose 148 MG/DL (74-106) 142 MG/DL (74-106) Sodium Level 132 MEQ/L (136-145) 132 MEQ/L (136-145) Carbon Dioxide Level 18.7 MEQ/L (21.0-32.0) 18.7 MEQ/L (21.0-32.0) Estimat Glomerular Filtration Rate 42 ML/MIN (>89) 46 ML/MIN (>89) 53 ML/MIN (>89) Red Blood Count 4.45 MIL/MM3 (4.50-5.90) Hemoglobin 10.0 GM/DL (13.0-17.0) Hematocrit 32.5 % (39.0-51.0) Mean Corpuscular Volume 73.0 FL (80.0-100.0) Mean Corpuscular Hemoglobin 22.4 PG (27.0-34.0) Mean Corpuscular Hemoglobin Concent 30.7 % (32.0-36.0) Red Cell Distribution Width 20.7 % (11.6-17.2) Test 01/30/18 08:37 Red Blood Count 4.28 MIL/MM3 (4.50-5.90) Hemoglobin 9.6 GM/DL (13.0-17.0) Hematocrit 31.0 % (39.0-51.0) Mean Corpuscular Volume 72.3 FL (80.0-100.0) Mean Corpuscular Hemoglobin 22.4 PG (27.0-34.0) Mean Corpuscular Hemoglobin Concent 30.9 % (32.0-36.0) Red Cell Distribution Width 20.7 % (11.6-17.2) Random Glucose 136 MG/DL (74-106) Calcium Level 8.2 MG/DL (8.5-10.1) Sodium Level 134 MEQ/L (136-145) Carbon Dioxide Level 19.9 MEQ/L (21.0-32.0) Estimat Glomerular Filtration Rate 64 ML/MIN (>89) Imaging Last Impressions Renal Ultrasound 01/25/18 0000 Signed Impressions: Service Date/Time: Thursday, January 25, 2018 10:44 - CONCLUSION: Normal above evaluation of the kidneys and bladder. There is free fluid identified within Cintron's pouch as well as within the pelvis. This may reflect ascites.. Susan Yang MD Foot X-Ray 01/24/18 0000 Signed Impressions: Service Date/Time: Wednesday, January 24, 2018 21:52 - CONCLUSION: Slightly greater than half of the distal fifth metatarsal has been resected in the interim. No evidence of an acute complication. Clifford Montaño MD Foot MRI 01/23/18 0000 Signed Impressions: Service Date/Time: January 18:35 - CONCLUSION: 1. Osteomyelitis distally of the first and fifth metatarsals as above. Also probably patchy osteomyelitis within the phalanges of the little toe. The other toes have been previously amputated. 2. No abscess. Clifford Montaño MD Aorta w/Runoff CTA 01/23/18 0000 Signed Impressions: Service Date/Time: January 14:44 - CONCLUSION: 1. No significant aortic occlusive disease or iliac inflow stenosis. 2. Diffusely calcified superficial femoral arteries bilaterally without significant outflow stenosis. 3. Limited three-vessel runoff to the foot on the right with diffuse distal posterior tibial disease and bulky calcifications of the proximal peroneal artery. 4. Limited three-vessel runoff to the mid to distal left calf. The distal runoff vessels are heavily calcified and incompletely opacified beyond the mid calf for definitive diagnosis. 5. Trace right pleural effusion with very subtle free fluid in the abdomen and mild diffuse soft tissue anasarca in the lower abdomen consistent with mild positive fluid balance. Dl Mazariegos MD Lower Extremity Ultrasound 01/20/18 1511 Signed Impressions: Service Date/Time: Saturday, January 20, 2018 15:26 - CONCLUSION: 1. No evidence for DVT. 2. Prominent right inguinal lymph nodes are present. Alexis Villalobos MD Chest X-Ray 01/20/18 1404 Signed Impressions: Service Date/Time: Saturday, January 20, 2018 14:26 - CONCLUSION: 1. COPD changes and mild cardiomegaly. Kd Estrada MD PE at Discharge AAox3 nad Clear lungs BL S1S2 RRR, no MRG abdomen obese, tender to palpation of suprapubic region. (+) 1 edema of BL lower extremities Pt update on day of discharge The patient denies chest pain or shortness of breath. States pain is controlled. Constipation has resolved. Patient was of home health care however he refuses. Orthopedic surgery as stated the patient could be discharged home without home health care as dry sterile bandage that is intact at discharge can remain for 1 week if kept clean and dry. The patient was instructed to follow-up with orthopedic surgery within this week. Hospital Course 53 y/o male with a history of DM, CAD, diabetic neuropathy, CHF on heart transplant list, multiple toe amputations presented to the ED with complaints of shortness of breath and fluid overload. CHF exacerbation, acute on chronic Chest x-ray reviewed and shows mild cardiomegaly BMP 277 -Initially treated with Lasix 40 mg IV twice a day. -BMP in a.m. -Cardiology consulted, patient with LifeVest and no outpatient filters assembler -Fluid restriction -01/28 2D echocardiogram shows mildly dilated left ventricle. Severely reduced systolic function with an ejection fraction of less than 20%. Mild to moderate tricuspid valve regurgitation, mild mitral valve regurgitation. - 01/29 CHF is now stable. Diuretics on hold due to elevated creatinine. Diabetic foot infection/osteomyelitis Foot x-ray reviewed and shows right soft tissue swelling ESR 28, CRP 69 -Podiatry consulted. -Patient given 1 dose of Vanco in the ED, pharmacy consult, follow closely patient with history of renal failure while on vancomycin -Wound cultures growing Providencia Rettgeri and Citrobacter Freundii. -Pain management with IV morphine -Foot MRI showed some myelitis distally of the first and fifth metatarsals. -Status post right foot partial fifth ray amputation bone biopsy on 01/24 -Continue IV Levaquin - Consult ID for further recommendations. -ID recommendations appreciated. Continue Levaquin and follow pathology upon biopsy. If he has only positive culture for 2 organisms. He recovered on 01/20, then he can be switched to oral Levaquin and treated for a week. Because of his renal dysfunction, if he has residual osteomyelitis based on pathology, consideration should be given to additional surgery to get to healthy noninfected bone. -01/28 Pathology pending. Continue IV Levaquin. -01/29 pathology showed that the patient had gangrene of the gross and acute osteomyelitis, however the bony surgical margin of resection appeared to be free of involvement. Diabetes mellitus type II, chronic, -Accu-Cheks with sliding scale insulin -Diabetic diet -Continued home long-acting insulin - Blood sugars acceptable. Hypoglycemia Patient had blood sugar in the 70s on 01/24. Patient started D5 half NS throughout surgery. Patient's blood sugars have remained stable in the 150s. Will discontinue D5. 01/26 Hypoglycemia resolved. No further episodes of hypoglycemia and blood sugars stable. Acute kidney injury Creatinine trended up to 1.67 on 01/23 and continues to trend up, today 1.94. Nephrology consulted. Appreciate recommendations. Renal ultrasound shows normal evaluation of the kidneys and bladder. Suspected ATN from IV vancomycin or from infection, interstitial nephritis also in the differential diagnosis. Vancomycin has been discontinued. Check urine sodium and eosinophils. Continue to monitor BUN and creatinine, history I's and O's and avoid nephrotoxins. 01/26 Bladder scan negative. Urine eosinophils ordered 01/24 but not sent to date , will reorder today. Creatinine is improving trending down from 1.94-1.76. 01/28 creatinine trending down. Patient having good urine output. Continue to monitor BUN and creatinine. 01/29 creatinine continues to trend down. Creatinine down to 1.4 today. Patient has good urine output. Continue to monitor BUN and creatinine, strict I 's and O's and avoid nephrotoxins. Hyponatremia Sodium seems to be stable and slowly improving. Sodium today is 132. Continue to monitor BMP. Constipation Continue constipation protocol. 01/27 No BM yet after Miralax admisnitration. Will Rx Magnesium Citrate. 01/28 constipation resolved. Continue stool softeners. Heartburn Patient's heartburn has improved. Continue PPI and Maalox as needed. DVT prophylaxis: Heparin Pt Condition on Discharge: Stable Discharge Disposition: Discharge Home Discharge Time: > 30 minutes Discharge Instructions DIET: Follow Instructions for: Diabetic Diet Activities you can perform: See Additionl Instruction Other Activity Instructions: Nonweightbearing right foot Follow up Referrals: Orthopedics - 2-3 Days with Sue Cheng DPM PCP Follow-up - 2 Weeks New Medications: Insulin Aspart Inj (Novolog Inj) 1,000 Unit/10 Ml Vial 2-12 UNITS SQ ACHS for Blood Sugar Management, #10 ML 0 Refills Max dose at bedtime ( ) units; sugars less than 70,(0) units; sugars 150-199,(2) units; sugars 200-249,(4) units; sugars 250-299,(7) units; sugars 300-349,(10) units; sugars greater than 349,(12)units Levofloxacin (Levaquin) 500 Mg Tablet 500 MG PO DAILY for Infection, #5 TAB-CAP Continued Medications: Amlodipine (Norvasc) 5 Mg Tab 5 MG PO DAILY for Blood Pressure Management, #30 TAB Aspirin (Aspirin) 81 Mg Chew 81 MG CHEW DAILY for Blood Clot Prevention, #30 TAB 0 Refills Atorvastatin (Lipitor) 10 Mg Tab 10 MG PO DAILY for Cholesterol Management, #30 TAB Carvedilol (Coreg) 12.5 Mg Tab 25 MG PO Q12HR for Blood Pressure Management, #60 TAB Docusate Sodium (Docusate Sodium) 100 Mg Cap 100 MG PO BID PRN for CONSTIPATION, #60 CAP 0 Refills Folic Acid (Folic Acid) 1 Mg Tablet 1 MG PO DAILY for Nutritional Supplement, #30 TAB Furosemide (Lasix) 20 Mg Tab 10 MG PO BID, #30 TAB 0 Refills Potassium Chloride ER (Klor-Con 10) 10 Meq Tab 10 MEQ PO BID for Electrolyte Replacement, #60 TAB 0 Refills Discontinued Medications: Insulin Glargine Inj (Lantus Inj) 1,000 Unit/10 Ml Vial 28 UNITS SQ BID for Blood Sugar Management, #5 VIAL 0 Refills Maxx Martinez MD Jan 30, 2018 14:18
--- NOTE | 2018-01-30 14:24 | HHI.NPPN ---
Subjective General Problems: Anemia Renal Failure: Chronic, Acute History of Present Illness This is a 53-year-old male with a past medical history of diabetes mellitus, which is longstanding, history of recent acute kidney injury, ischemic heart disease, congestive heart failure with history of being on heart transplant list , came to the hospital with complaint of right lower extremity cellulitis and shortness of breath.Nephrology consulted to see the patient because of elevated BUN and creatinine. The patient has a history of acute kidney injury when he was here end of October, and his creatinine improved and went down to 1.1, 1.2 and that is what he came in with, and now the creatinine is 1.6 and gone up to 1.9. The patient has been diagnosed with a right foot infection and followed by the podiatry and also seen by the vascular surgery, and he is supposed to go for surgery now with left plantar fifth ray amputation and bone biopsy. The patient is n.p.o. at present. Vascular surgeon has seen the patient, and impression was that the blood flow is good and the wound should heal adequately. The patient has some nausea today, but there is no vomiting. There is no history of diarrhea. No dysuria or hematuria. The patient was also seen by cardiology for his cardiomyopathy, and the impression was to optimize medically before the surgery. During this admission, the patient has been getting vancomycin. The last dose was given yesterday morning and then it was stopped, and currently he is on Levaquin. Potassium is on the lower side, and the patient also has been getting potassium but now it is 5.0. Additional Remarks Patient seen in AM. Denies any SOB. No acute complaints. (Joya Bell) Review of Systems Respiratory Respiratory Remarks Denies SOB (Joya Bell) Cardiovascular Cardiac Remarks Denies CP (Joya Bell) Gastrointestinal GI Remarks denies abdominal pain (Joya Bell) Psych Psych: Depression (Joya Bell) Objective Data Data Vital Signs Date Time Temp Pulse Resp B/P (MAP) Pulse Ox O2 Delivery O2 Flow Rate FiO2 01/30/18 12:00 97.9 68 20 136/96 (109) 100 01/30/18 08:00 Room Air 3/22/18 08:00 60 01/30/18 08:00 98.5 65 18 120/72 (88) 99 01/30/18 04:42 Room Air 01/30/18 04:00 97.7 65 18 123/69 (87) 100 01/30/18 00:00 64 01/29/18 23:29 97.7 65 20 133/75 (94) 100 01/29/18 21:40 Room Air 01/29/18 20:23 21 01/29/18 20:00 98.4 64 16 134/78 (96) 99 01/29/18 20:00 64 01/29/18 16:00 97.5 62 17 128/85 (99) 99 01/29/18 16:00 63 (Joya Bell) -: 01/30/18 0837 01/30/18 0837 Physical Exam General Appearance: Well Developed, Well Nourished, No Acute Distress (Joya Bell) Throat Throat Exam: Oral Mucosa [place] & Moist (Joya Bell) Pulmonary Resp Exam: Diminished Breath Sounds (Joya Bell) Cardiology CV Exam: Regular, Normal Sinus Rhythm (Joya Bell) Gastrointestinal/Abdomen GI Exam: Soft, Non-Tender, Bowel Sounds Present (Joya Bell) Integumentary Skin Exam: Dry, Intact (Joya Bell) Extremeties Extremities Exam: No Edema (Joya Bell) Neurologic Neuro Exam: Alert, Awake, Oriented, Speech Clear (Joya Bell) Assessment/Plan Assessment Summary: ANDREI/Acute Renal Failure Problem List: (1) ANDREI (acute kidney injury) ICD Codes: N17.9 - Acute kidney failure, unspecified Plan: ANDREI likely due to contrast exposure from CTA, vancomycin exposure in setting of infection. Renal US - normal study, ascites seen. Plan Creatinine improving Avoid any nephrotoxins. Plans for discharge today. (2) Amputated toe of left foot ICD Codes: Z89.422 - Amputated toe of left foot Status: Acute Plan: s/p surgery 01/24 Continue to follow with podiatry (3) Toe osteomyelitis, left ICD Codes: M86.9 - Toe osteomyelitis, left Status: Acute Plan: on Levaquin, follow with ID (4) DM (diabetes mellitus) ICD Codes: E11.9 - Diabetes mellitus Status: Chronic (5) CHF (congestive heart failure) ICD Codes: I50.9 - Heart failure, unspecified Status: Chronic Plan: continue to monitor Initially given lasix for CHF (6) Hyponatremia ICD Codes: E87.1 - Hypo-osmolality and hyponatremia Plan: due to CHF. Continue to monitor (Joya Bell) Problem List: (1) ANDREI (acute kidney injury) ICD Codes: N17.9 - Acute kidney failure, unspecified Plan: ANDREI likely due to contrast exposure from CTA, vancomycin exposure in setting of infection. Renal US - normal study, ascites seen. Plan Creatinine improving Avoid any nephrotoxins. Plans for discharge today. Patient seen and examined, agree with above. Creatinine improved, for D/C. (2) Amputated toe of left foot ICD Codes: Z89.422 - Amputated toe of left foot Status: Acute Plan: s/p surgery 01/24 Continue to follow with podiatry (3) Toe osteomyelitis, left ICD Codes: M86.9 - Toe osteomyelitis, left Status: Acute Plan: on Levaquin, follow with ID (4) DM (diabetes mellitus) ICD Codes: E11.9 - Diabetes mellitus Status: Chronic (5) CHF (congestive heart failure) ICD Codes: I50.9 - Heart failure, unspecified Status: Chronic Plan: continue to monitor Initially given lasix for CHF (6) Hyponatremia ICD Codes: E87.1 - Hypo-osmolality and hyponatremia Plan: due to CHF. 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
[2018-01-30 14:43] VITALS: PULSE 70
[2018-01-30 16:00] VITALS: BP 129/79; PULSE 65; RESP 20; TEMP 97.6; O2SAT 100
== END 2018-01-30 18:16 | disposition home or self-care (01) | DRG 239 ==
LOC: NEPE 13:22 → NEDA 17:46 → NEDH 21:47 → NEDA 01-21 08:32 → N04B 01-21 14:18
PROVIDERS: ADMIT Hospitalist; ATTEND Hospitalist
PROC: 0QBN0ZX Excision of Right Metatarsal, Open Approach, Diagnostic (ICD-10-PCS; 2018-01-24)
PROC: 0Y6M0ZF Detachment at Right Foot, Partial 5th Ray, Open Approach (ICD-10-PCS; principal; 2018-01-24 20:22)
DX: I50.23 Acute on chronic systolic (congestive) heart failure (principal); N17.0 Acute kidney failure with tubular necrosis; Z76.82 Awaiting organ transplant status; M86.171 Other acute osteomyelitis, right ankle and foot; E11.52 Type 2 diabetes mellitus with diabetic peripheral angiopathy with gangrene; L03.115 Cellulitis of right lower limb; E87.1 Hypo-osmolality and hyponatremia; I42.9 Cardiomyopathy, unspecified; I13.0 Hypertensive heart and chronic kidney disease with heart failure and stage 1 through stage 4 chronic kidney disease, or unspecified chronic kidney disease; R18.8 Other ascites; E87.2 Acidosis; E11.69 Type 2 diabetes mellitus with other specified complication; E11.40 Type 2 diabetes mellitus with diabetic neuropathy, unspecified; E11.621 Type 2 diabetes mellitus with foot ulcer; E11.65 Type 2 diabetes mellitus with hyperglycemia; J44.9 Chronic obstructive pulmonary disease, unspecified; L97.519 Non-pressure chronic ulcer of other part of right foot with unspecified severity; I25.10 Atherosclerotic heart disease of native coronary artery without angina pectoris; F12.90 Cannabis use, unspecified, uncomplicated; E11.628 Type 2 diabetes mellitus with other skin complications; L08.9 Local infection of the skin and subcutaneous tissue, unspecified; Z79.82 Long term (current) use of aspirin; Z82.3 Family history of stroke; Z82.49 Family history of ischemic heart disease and other diseases of the circulatory system; Z91.19 Patient's noncompliance with other medical treatment and regimen; Z87.891 Personal history of nicotine dependence; Z79.4 Long term (current) use of insulin; Z86.14 Personal history of Methicillin resistant Staphylococcus aureus infection; D64.9 Anemia, unspecified; T36.8X5A Adverse effect of other systemic antibiotics, initial encounter; Y92.239 Unspecified place in hospital as the place of occurrence of the external cause; N18.9 Chronic kidney disease, unspecified; Z86.718 Personal history of other venous thrombosis and embolism; Z89.429 Acquired absence of other toe(s), unspecified side; E11.22 Type 2 diabetes mellitus with diabetic chronic kidney disease; E78.00 Pure hypercholesterolemia, unspecified; E11.49 Type 2 diabetes mellitus with other diabetic neurological complication; I08.1 Rheumatic disorders of both mitral and tricuspid valves; K21.9 Gastro-esophageal reflux disease without esophagitis; K59.03 Drug induced constipation
CPT/HCPCS: 71046; 73630; 73720; 75635; 76775; 76937; 80048; 80053; 80202; 82550; 82565; 82948; 83735; 83880; 84100; 84300; 84484; 85025; 85027; 85610; 85652; 85730; 86140; 87015; 87040; 87070; 87077; 87102; 87116; 87186; 87205; 87206; 88304; 88305; 88307; 88311; 93005; 93306; 93922; 93971; 96374; 96375; A9579; C9113; J1644; J1650; J1815; J1940; J1956; J2270; J2310; J2370; J2405; J3010; J3370; J7050; L3260; Q9967

== ENCOUNTER 2018-02-26 16:18 | Observation (INO) | payer OTHER ==
[~2018-02-26] VITALS: Ht 172.7 cm; Wt 81.5 kg
[~2018-02-26 16:18] MED LIST changes: -BACT800T5 PO; -HYDR-3516 PO; -LACT PO; -LANTUS2P SQ; +LEVA500T33 PO; +NOVOLOGP2 SQ; -PANT40TA3 PO
[2018-02-26 16:26] VITALS: BP 128/72; PULSE 101; RESP 17; TEMP 98.4; O2SAT 100
[2018-02-26] MEDS ORDERED: SODIUM CHLORIDE 0.9% FLUSH 10 ML FLUSH IVF PRN (17:15)
[2018-02-26] MEDS ORDERED: BUME1TAB PO (17:25)
[2018-02-26 17:32] LABS: AUTOMATED NEUTROPHIL # 5.8 TH/MM3 (1.8-7.7); BASOPHIL # 0.1 TH/MM3 (0-0.2); BASOPHIL % 0.8 % (0.0-2.0); EOSINOPHIL # 0.2 TH/MM3 (0-0.4); EOSINOPHIL % 2.8 % (0.0-4.0); HEMATOCRIT 33.4 % (39.0-51.0); HEMOGLOBIN 10.4 GM/DL (13.0-17.0); LYMPH % 16.4 % (9.0-44.0); LYMPHOCYTE # 1.3 TH/MM3 (1.0-4.8); MEAN CELL VOLUME 70.7 FL (80.0-100.0); MEAN CORPUSCULAR HGB CONC 31.1 % (32.0-36.0); MEAN PLATELET VOLUME 9.3 FL (7.0-11.0); MONO % 7.3 % (0.0-8.0); MONOCYTE # 0.6 TH/MM3 (0-0.9); NEUT % 72.7 % (16.0-70.0); PLATELET COUNT 256 TH/MM3 (150-450); RED BLOOD COUNT 4.73 MIL/MM3 (4.50-5.90); RED CELL DISTRIBUTION WIDTH 20.9 % (11.6-17.2)
[2018-02-26 17:39] LABS: INTERNATIONAL NORMALIZED RATIO 1.5 RATIO; PROTHROMBIN TIME - PATIENT 15.2 SEC (9.8-11.6)
--- NOTE | 2018-02-26 18:00 | PD ---
HPI Chief Complaint: Chest Pain Time Seen by Provider: 16:46 Travel History International Travel<30 days: No Contact w/Intl Traveler<30days: No Traveled to known affect area: No History of Present Illness HPI Is a 53-year-old male presents to the emergency department complaining of left- sided chest pain and left upper abdominal pain. He has a history of significant CHF with an EF of less than 20%, on a LifeVest for more than 3 years , as well as diabetes and recurrent lower extremity infections of recent amputation for osteomyelitis. He states that he has had worsening left-sided chest pain left costal margin pain is been ongoing for the past week or 2. He also feels like his urination is been down. States symptoms are similar to when he has had renal failure. He otherwise has been feeling generally well. No no other changes. History Past Medical History Narrative Medical Diabetes CHF, EF less than 20%, LifeVest CAD Neuropathy Social History Alcohol Use: No Tobacco Use: No Allergies-Medications (Allergen,Severity, Reaction): Coded Allergies: amoxicillin (Verified Allergy, Mild, Hives, 01/20/18) oxycodone (Verified Allergy, Mild, Hives, 01/20/18) Reported Meds & Prescriptions Reported Meds & Active Scripts Active Novolog Inj (Insulin Aspart) 1,000 Unit/10 Ml Vial 2-12 Units SQ ACHS Max dose at bedtime ( ) units; sugars less than 70,(0) units; sugars 150-199,(2) units; sugars 200-249,(4) units; sugars 250-299,(7) units; sugars 300-349,(10) units; sugars greater than 349,(12)units Norvasc (Amlodipine Besylate) 5 Mg Tab 5 Mg PO DAILY Aspirin 81 Mg Chew 81 Mg CHEW DAILY Klor-Con 10 (Potassium Chloride) 10 Meq Tab 10 Meq PO BID Coreg (Carvedilol) 12.5 Mg Tab 25 Mg PO Q12HR Lipitor (Atorvastatin Calcium) 10 Mg Tab 10 Mg PO DAILY Reported Bumetanide 1 Mg Tab 2 Mg PO BID Review of Systems Except as stated in HPI: all other systems reviewed are Neg Physical Exam Narrative GENERAL: Chronically ill-appearing 53-year-old man. SKIN: Focused skin assessment warm/dry. HEAD: Atraumatic. Normocephalic. EYES: Pupils equal and round. No scleral icterus. No injection or drainage. ENT: No nasal bleeding or discharge. Mucous membranes pink and moist. NECK: Trachea midline. No JVD. CARDIOVASCULAR: Regular rate and rhythm. No murmur appreciated. RESPIRATORY: No accessory muscle use. Clear to auscultation. Breath sounds equal bilaterally. GASTROINTESTINAL: Abdomen is flat and soft. Little bit tenderness on the left costal margin. MUSCULOSKELETAL: No obvious deformities. Decreased muscle bulk. No significant edema. NEUROLOGICAL: Awake and alert. No obvious cranial nerve deficits. Motor grossly within normal limits. Normal speech. PSYCHIATRIC: Appropriate mood and affect; insight and judgment normal. Data Data Last Documented VS Vital Signs Date Time Temp Pulse Resp B/P (MAP) Pulse Ox O2 Delivery O2 Flow Rate FiO2 02/26/18 17:45 Room Air 02/26/18 17:45 98 02/26/18 16:26 98.4 101 17 128/72 (90) Orders Orders Electrocardiogram (02/26/18 17:02) B-Type Natriuretic Peptide (02/26/18 17:02) Complete Blood Count With Diff (02/26/18 17:02) Comprehensive Metabolic Panel (02/26/18 17:02) Magnesium (Mg) (02/26/18 17:02) Prothrombin Time / Inr (Pt) (02/26/18 17:02) Act Partial Throm Time (Ptt) (02/26/18 17:02) Troponin I (02/26/18 17:02) Ecg Monitoring (02/26/18 17:02) Iv Access Insert/Monitor (02/26/18 17:02) Oximetry (02/26/18 17:02) Oxygen Administration (02/26/18 17:02) Sodium Chloride 0.9% Flush (Ns Flush) (02/26/18 17:15) Chest, Pa & Lat (02/26/18 17:02) Furosemide Inj (Lasix Inj) (02/26/18 18:30) Acetamin-Hydrocod 325-5 Mg ([place] 5-325 (02/26/18 19:00) Admit Order (Ed Use Only) (02/26/18 ) Labs Laboratory Tests Test 02/26/18 17:15 White Blood Count 8.0 TH/MM3 Red Blood Count 4.73 MIL/MM3 Hemoglobin 10.4 GM/DL Hematocrit 33.4 % Mean Corpuscular Volume 70.7 FL Mean Corpuscular Hemoglobin 22.0 PG Mean Corpuscular Hemoglobin Concent 31.1 % Red Cell Distribution Width 20.9 % Platelet Count 256 TH/MM3 Mean Platelet Volume 9.3 FL Neutrophils (%) (Auto) 72.7 % Lymphocytes (%) (Auto) 16.4 % Monocytes (%) (Auto) 7.3 % Eosinophils (%) (Auto) 2.8 % Basophils (%) (Auto) 0.8 % Neutrophils # (Auto) 5.8 TH/MM3 Lymphocytes # (Auto) 1.3 TH/MM3 Monocytes # (Auto) 0.6 TH/MM3 Eosinophils # (Auto) 0.2 TH/MM3 Basophils # (Auto) 0.1 TH/MM3 CBC Comment DIFF FINAL Differential Comment Prothrombin Time 15.2 SEC Prothromb Time International Ratio 1.5 RATIO Activated Partial Thromboplast Time 25.9 SEC Blood Urea Nitrogen 15 MG/DL Creatinine 0.98 MG/DL Random Glucose 165 MG/DL Total Protein 8.3 GM/DL Albumin 2.7 GM/DL Calcium Level 8.4 MG/DL Magnesium Level 1.4 MG/DL Alkaline Phosphatase 166 U/L Aspartate Amino Transf (AST/SGOT) 67 U/L Alanine Aminotransferase (ALT/SGPT) 59 U/L Total Bilirubin 1.2 MG/DL Sodium Level 134 MEQ/L Potassium Level 4.3 MEQ/L Chloride Level 101 MEQ/L Carbon Dioxide Level 24.5 MEQ/L Anion Gap 9 MEQ/L Estimat Glomerular Filtration Rate 80 ML/MIN Troponin I 0.03 NG/ML B-Type Natriuretic Peptide 1996 PG/ML [facility] Medical Decision Making Medical Screen Exam Complete: Yes Emergency Medical Condition: Yes Interpretation(s) My review of EKG: Normal sinus rhythm at a rate of 97, leftward axis, normal intervals, possible old inferior OH, no definite evidence of acute ischemia. Compared to previous EKG, no significant change. LABS: CBC is unremarkable, mild anemia. No CMP remarkable for elevated glucose, elevated total bili Troponin negative BNP 1996 INR 1.5 Chest x-ray: Diffuse mild interstitial prominence. Differential Diagnosis Chest pain, chronic ischemia, heart failure, chest wall pain, ascites or abdominal edema, other Narrative Course Medical decision making. INITIAL: 53-year-old man with severe chronic heart disease. Will check some initial labs EKG and chest x-ray, reassess. Not obviously volume up but possibly so. FINAL: Patient with pain, unclear etiology. Volume up some. States he is taking his medication regularly but this may not be true. A lot of complaints of pain asking for pain medicine. Gave oral medications. Spoke with Dr. Polk, will admit for observation. For social follow-up and not a candidate for CDU. Diagnosis Primary Impression: CHF exacerbation Mp Aly MD Feb 26, 2018 18:00
[2018-02-26 18:14] LABS: ALKALINE PHOSPHATASE 166 U/L (45-117); TOTAL BILIRUBIN ADULT 1.2 MG/DL (0.2-1.0); TOTAL PROTEIN 8.3 GM/DL (6.4-8.2); TROPONIN I 0.03 NG/ML (0.02-0.05)
--- NOTE | 2018-02-26 18:14 | RADRPT ---
EXAM DATE/TIME: 02/26/2018 17:34 [place] COMPARISON: CHEST PA & LAT, January 20, 2018, 14:26. INDICATIONS : Left sided chest pain, shortness of breath for 1 day MEDICAL HISTORY : Diabetes mellitus type II. Hypertension Hypercholesterolemia SURGICAL HISTORY : None. ENCOUNTER: Initial ACUITY: 1 day PAIN SCORE: 6/10 LOCATION: Left chest FINDINGS: Mild diffuse interstitial prominence. No evidence of alveolar consolidation are significant effusion. Cardiomediastinal contours are grossly satisfactory. CONCLUSION: Diffuse mild interstitial prominence. Clifford Carmen MD on February 26, 2018 at 18:11 Board Certified Radiologist. This report was verified electronically.
[2018-02-26 18:15] LABS: ALBUMIN 2.7 GM/DL (3.4-5.0); ALT (GPT) 59 U/L (12-78); AST (GOT) 67 U/L (15-37); BICARBONATE 24.5 MEQ/L (21.0-32.0); BLOOD UREA NITROGEN 15 MG/DL (7-18); CALCIUM 8.4 MG/DL (8.5-10.1); CHLORIDE 101 MEQ/L (98-107); CREATININE 0.98 MG/DL (0.60-1.30); GLOMERULAR FILTRATION RATE 80 ML/MIN (>89); GLUCOSE,RANDOM 165 MG/DL (74-106); MAGNESIUM 1.4 MG/DL (1.5-2.5); SODIUM (NA) 134 MEQ/L (136-145)
[2018-02-26] MEDS ORDERED: FUROSEMIDE 100 MG/10 ML VIAL IV PUSH ONE (18:30)
[2018-02-26] MEDS ORDERED: ACETAMINOPHEN/HYDROcodone 325 MG/5 MG TAB PO ONE (19:00)
[2018-02-26 19:52] VITALS: BP 123/76; PULSE 88; RESP 16; O2SAT 100
[2018-02-26] MEDS ORDERED: ACETAMINOPHEN 325 MG TAB PO PRN (21:00)
[2018-02-26] MEDS ORDERED: DEXTROSE 50% IN WATER 50 ML VIAL(D50) IV PUSH PRN (21:00)
[2018-02-26] MEDS ORDERED: SODIUM CHLORIDE 0.9% FLUSH 10 ML FLUSH IV FLUSH PRN (21:00)
[2018-02-26] MEDS ORDERED: MAGNESIUM HYDROXIDE SUSP 30 ML CUP PO PRN (21:00)
[2018-02-26] MEDS ORDERED: SENNOSIDES 8.6 MG TAB PO PRN (21:00)
[2018-02-26] MEDS ORDERED: BISACODYL 10 MG SUPP RECTAL PRN (21:00)
[2018-02-26] MEDS ORDERED: GLUCAGON 1 MG/ML VIAL OTHER PRN (21:00)
[2018-02-26] MEDS ORDERED: LACTULOSE SYRUP 20 GM/30 ML CUP PO PRN (21:00)
[2018-02-26] MEDS ORDERED: NALOXONE HCL 0.4 MG/ML AMP IV PUSH PRN (21:00)
[2018-02-26] MEDS ORDERED: ONDANSETRON HCL 4 MG/2 ML VIAL IVP PRN (21:00)
--- NOTE | 2018-02-26 21:01 | HHI.HP ---
[facility] No Primary Care Physician Admission Diagnosis CHF exacerbation Diagnoses: Travel History International Travel<30 Days: No Contact w/Intl Traveler <30 Da: No Traveled to Known Affected Are: No History of Present Illness 53-year-old male with a past medical history significant for CHF (last echo done 01/27/18 with an EF of less than 20%), diabetes mellitus, hypertension and hyperlipidemia presents to the emergency department for the evaluation of left- sided chest pain. The patient reports the pain started approximately 1-1/2 days ago and was worse this morning. He states the pain is on the left side, nonradiating and sharp. Reproducible with palpation. He reports dyspnea on exertion. He denies any fever/chills. Positive cough. No abdominal pain. No nausea/vomiting/diarrhea. No weakness/fatigue. Review of Systems Except as stated in HPI: all other systems reviewed are Neg Past Family Social History Past Medical History CHF (last echo done 01/27/18 with an EF of less than 20%), diabetes mellitus, hypertension and hyperlipidemia Past Surgical History Bilateral toe amputations, multiple surgeries, last toe amputated approximately 3 weeks ago Forearm surgery Back surgery Reported Medications Reported Meds & Active Scripts Active Novolog Inj (Insulin Aspart) 1,000 Unit/10 Ml Vial 2-12 Units SQ ACHS Max dose at bedtime ( ) units; sugars less than 70,(0) units; sugars 150-199,(2) units; sugars 200-249,(4) units; sugars 250-299,(7) units; sugars 300-349,(10) units; sugars greater than 349,(12)units Norvasc (Amlodipine Besylate) 5 Mg Tab 5 Mg PO DAILY Aspirin 81 Mg Chew 81 Mg CHEW DAILY Klor-Con 10 (Potassium Chloride) 10 Meq Tab 10 Meq PO BID Coreg (Carvedilol) 12.5 Mg Tab 25 Mg PO Q12HR Lipitor (Atorvastatin Calcium) 10 Mg Tab 10 Mg PO DAILY Reported Bumetanide 1 Mg Tab 2 Mg PO BID Allergies: Coded Allergies: amoxicillin (Verified Allergy, Mild, Hives, 01/20/18) oxycodone (Verified Allergy, Mild, Hives, 01/20/18) Family History Mother with CAD Social History Quit tobacco in August 2017. Denies alcohol. Positive marijuana. Physical Exam Vital Signs Vital Signs Date Time Temp Pulse Resp B/P (MAP) Pulse Ox O2 Delivery O2 Flow Rate FiO2 02/26/18 19:52 88 16 123/76 (92) 100 Room Air 02/26/18 17:45 Room Air 02/26/18 17:45 98 Room Air 02/26/18 16:26 98.4 101 17 128/72 (90) 100 Physical Exam GENERAL: Thin, -[place]ian male sitting up in bed SKIN: No rashes, ecchymoses or lesions. Cool and dry. HEAD: Atraumatic. Normocephalic. No temporal or scalp tenderness. EYES: Pupils equal round and reactive. Extraocular motions intact. No scleral icterus. No injection or drainage. ENT: Nose without bleeding, purulent drainage or septal hematoma. Throat without erythema, tonsillar hypertrophy or exudate. Uvula midline. Airway patent. NECK: Trachea midline. No JVD or lymphadenopathy. Supple, nontender, no meningeal signs. CARDIOVASCULAR: Regular rate and rhythm without murmurs, gallops, or rubs. RESPIRATORY: Mild crackles on the right. No wheezes, rales or rhonchi GASTROINTESTINAL: Abdomen soft, non-tender, nondistended. No hepato-splenomegaly , or palpable masses. No guarding. MUSCULOSKELETAL: Extremities without clubbing, cyanosis, or edema. No joint tenderness, effusion, or edema noted. No calf tenderness. Right foot in boot with dressing intact. NEUROLOGICAL: Awake and alert. Cranial nerves II through XII intact. Motor and sensory grossly within normal limits. Normal speech. Laboratory Laboratory Tests Test 02/26/18 17:15 White Blood Count 8.0 Red Blood Count 4.73 Hemoglobin 10.4 Hematocrit 33.4 Mean Corpuscular Volume 70.7 Mean Corpuscular Hemoglobin 22.0 Mean Corpuscular Hemoglobin Concent 31.1 Red Cell Distribution Width 20.9 Platelet Count 256 Mean Platelet Volume 9.3 Neutrophils (%) (Auto) 72.7 Lymphocytes (%) (Auto) 16.4 Monocytes (%) (Auto) 7.3 Eosinophils (%) (Auto) 2.8 Basophils (%) (Auto) 0.8 Neutrophils # (Auto) 5.8 Lymphocytes # (Auto) 1.3 Monocytes # (Auto) 0.6 Eosinophils # (Auto) 0.2 Basophils # (Auto) 0.1 CBC Comment DIFF FINAL Differential Comment Prothrombin Time 15.2 Prothromb Time International Ratio 1.5 Activated Partial Thromboplast Time 25.9 Blood Urea Nitrogen 15 Creatinine 0.98 Random Glucose 165 Total Protein 8.3 Albumin 2.7 Calcium Level 8.4 Magnesium Level 1.4 Alkaline Phosphatase 166 Aspartate Amino Transf (AST/SGOT) 67 Alanine Aminotransferase (ALT/SGPT) 59 Total Bilirubin 1.2 Sodium Level 134 Potassium Level 4.3 Chloride Level 101 Carbon Dioxide Level 24.5 Anion Gap 9 Estimat Glomerular Filtration Rate 80 Troponin I 0.03 B-Type Natriuretic Peptide 1995 Result Diagram: 02/26/18171402/26/181714 [place] VTE Risk Assessment [place] VTE Risk Assessment: No/Low Risk (score <= 1) Caprini Risk Assessment Model Point Value = 1 Point Value = 2 Point Value = 3 Point Value = 5 Age 41-60 Minor surgery BMI > 25 kg/m2 Swollen legs Varicose veins or History of unexplained or recurrent spontaneous Oral contraceptives or hormone replacement Sepsis (< 1 month) Serious lung disease, including pneumonia (< 1 month) Abnormal pulmonary function Acute myocardial infarction Congestive heart failure (< 1 month) History of inflammatory bowel disease Medical patient at bed rest Age 61-74 Arthroscopic surgery Major open surgery (> 45 min) Laparoscopic surgery (> 45 min) Malignancy Confined to bed (> 72 hours) Immobilizing plaster cast Central venous access Age >= 75 History of VTE Family history of VTE Factor V Leiden Prothrombin [id number] Lupus anticoagulant Anticardiolipin antibodies Elevated serum homocysteine Heparin-induced thrombocytopenia Other congenital or acquired thrombophilia Stroke (< 1 month) Elective arthroplasty Hip, pelvis, or leg fracture Acute spinal cord injury (< 1 month) Prophylaxis Regimen Total Risk Factor Score Risk Level Prophylaxis Regimen 0-1 Low Early ambulation 2 Moderate Order ONE of the following: *Sequential Compression Device (SCD) *Heparin 5000 units SQ BID 3-4 Higher Order ONE of the following medications: *Heparin 5000 units SQ TID *Enoxaparin/Lovenox 40 mg SQ daily (WT < 150 kg, CrCl > 30 mL/min) *Enoxaparin/Lovenox 30 mg SQ daily (WT < 150 kg, CrCl > 10-29 mL/min) *Enoxaparin/Lovenox 30 mg SQ BID (WT < 150 kg, CrCl > 30 mL/min) AND/OR *Sequential Compression Device (SCD) 5 or more Highest Order ONE of the following medications: *Heparin 5000 units SQ TID (Preferred with Epidurals) *Enoxaparin/Lovenox 40 mg SQ daily (WT < 150 kg, CrCl > 30 mL/min) *Enoxaparin/Lovenox 30 mg SQ daily (WT < 150 kg, CrCl > 10-29 mL/min) *Enoxaparin/Lovenox 30 mg SQ BID (WT < 150 kg, CrCl > 30 mL/min) AND *Sequential Compression Device (SCD) Assessment and Plan Assessment and Plan Assessment/plan: 1. Chest pain Reproducible on exam EKG shows normal sinus rhythm without ST segment elevation or depression, personally reviewed Troponin 0 0.03 ACS rule out pending; serial troponins/EKGs Continue home aspirin 2. CHF exacerbation Chest x-ray with pulmonary vascular congestion, personally reviewed BMP elevated at 1996, near baseline for this patient IV Lasix Supplemental oxygen as needed Continue LifeVest 3. Diabetes mellitus Sliding-scale insulin Monitor blood glucose 4. Hypertension/hyperlipidemia Continue home medications FEN NPO Electrolytes: monitor and replete prn Heparin Ester Polk MD Feb 26, 2018 21:01
[2018-02-26 22:51] VITALS: BP 142/87; PULSE 89; RESP 16; TEMP 98.1; O2SAT 100
[2018-02-26] MEDS: INSULIN ASPART SUPPLEMENTAL SCALE SQ SCH (23:28)
[2018-02-26] MEDS: CARVEDILOL 12.5 MG TAB PO SCH (23:39)
[2018-02-26] MEDS: POTASSIUM CHLORIDE 10 MEQ CONTROLLED RELEASE TAB PO SCH (23:39)
[2018-02-26] MEDS: DOCUSATE SODIUM 50 MG/SENNA 8.6 MG TAB PO SCH (23:39)
[2018-02-26] MEDS: HEPARIN SODIUM - SQ 10,000 UNITS/ML VIAL SQ SCH ×2 (23:40→23:45)
[2018-02-26] MEDS: SODIUM CHLORIDE 0.9% FLUSH 10 ML FLUSH IV FLUSH SCH (23:43)
[2018-02-26 23:55] LABS: TROPONIN I 0.03 NG/ML (0.02-0.05)
[2018-02-27 03:57] VITALS: BP 114/75; PULSE 65; RESP 16; TEMP 97.7; O2SAT 98
[2018-02-27 04:20] LABS: AUTOMATED NEUTROPHIL # 3.3 TH/MM3 (1.8-7.7); BASOPHIL % 0.8 % (0.0-2.0); EOSINOPHIL # 0.3 TH/MM3 (0-0.4); EOSINOPHIL % 5.1 % (0.0-4.0); HEMATOCRIT 30.5 % (39.0-51.0); HEMOGLOBIN 9.3 GM/DL (13.0-17.0); LYMPH % 24.9 % (9.0-44.0); LYMPHOCYTE # 1.3 TH/MM3 (1.0-4.8); MEAN CELL VOLUME 70.1 FL (80.0-100.0); MEAN CORPUSCULAR HEMOGLOBIN 21.4 PG (27.0-34.0); MEAN CORPUSCULAR HGB CONC 30.5 % (32.0-36.0); MONOCYTE # 0.5 TH/MM3 (0-0.9); NEUT % 60.2 % (16.0-70.0); PLATELET COUNT 185 TH/MM3 (150-450); RED BLOOD COUNT 4.35 MIL/MM3 (4.50-5.90); RED CELL DISTRIBUTION WIDTH 21.1 % (11.6-17.2); WHITE BLOOD COUNT 5.4 TH/MM3 (4.0-11.0)
[2018-02-27 04:46] LABS: BICARBONATE 27.5 MEQ/L (21.0-32.0); CALCIUM 8.2 MG/DL (8.5-10.1); CREATININE 0.91 MG/DL (0.60-1.30)
[2018-02-27 05:25] LABS: TROPONIN I 0.03 NG/ML (0.02-0.05)
[2018-02-27] MEDS: INSULIN ASPART SUPPLEMENTAL SCALE SQ SCH ×4 (08:00→20:00)
[2018-02-27 08:18] VITALS: BP 128/75; PULSE 67; RESP 20; TEMP 97.5; O2SAT 99
[2018-02-27] MEDS: CARVEDILOL 12.5 MG TAB PO SCH ×2 (08:34→19:57)
[2018-02-27] MEDS: FUROSEMIDE 40 MG/4 ML VIAL IV PUSH SCH ×2 (08:34→18:27)
[2018-02-27] MEDS: ASPIRIN 81 MG CHEW TAB CHEW SCH (08:35)
[2018-02-27] MEDS: DOCUSATE SODIUM 50 MG/SENNA 8.6 MG TAB PO SCH ×2 (08:35→19:57)
[2018-02-27] MEDS: amLODIPine BESYLATE 5 MG TAB PO SCH (08:35)
[2018-02-27] MEDS: ATORVASTATIN 10 MG TAB PO SCH (08:35)
[2018-02-27] MEDS: POTASSIUM CHLORIDE 10 MEQ CONTROLLED RELEASE TAB PO SCH ×2 (08:36→19:56)
[2018-02-27] MEDS: SODIUM CHLORIDE 0.9% FLUSH 10 ML FLUSH IV FLUSH SCH ×2 (09:00→20:00)
[2018-02-27] MEDS ORDERED: ACETAMINOPHEN/HYDROcodone 325 MG/5 MG TAB PO PRN ×2 (10:00)
--- NOTE | 2018-02-27 10:11 | HHI.PR ---
Subjective Remarks in no acute distress. complaining of some pain to the upper abdomen and lower chest. has some cough. afebrile. Objective Vitals Vital Signs Date Time Temp Pulse Resp B/P (MAP) Pulse Ox O2 Delivery O2 Flow Rate FiO2 02/27/18 08:18 97.5 67 20 128/75 (92) 99 02/27/18 03:57 97.7 65 16 114/75 (88) 98 02/26/18 22:51 98.1 89 16 142/87 (105) 100 02/26/18 21:33 02/26/18 19:52 88 16 123/76 (92) 100 Room Air 02/26/18 17:45 Room Air 02/26/18 17:45 98 Room Air 02/26/18 16:26 98.4 101 17 128/72 (90) 100 Result Diagram: 02/27/18 0359 02/27/18 0359 Imaging Last Impressions Chest X-Ray 02/26/18 1702 Signed Impressions: Service Date/Time: Monday, February 26, 2018 17:34 - CONCLUSION: Diffuse mild interstitial prominence. Clifford Carmen MD Objective Remarks GENERAL: This is a well-nourished, well-developed patient, in no apparent distress. CARDIOVASCULAR: Regular rate and regular rhythm without murmurs, gallops, or rubs. RESPIRATORY: Clear to auscultation. Breath sounds equal bilaterally. No wheezes , rales, or rhonchi. GASTROINTESTINAL: Abdomen soft, non-tender, nondistended. Normal, active bowel sounds MUSCULOSKELETAL: right foot covered with clean dressing. NEURO: Alert & Oriented x4 to person, place, time, situation. Moves all ext x4 Medications and IVs Inpatient Medications Acetaminophen (Tylenol) 650 mg Q4H PRN PO TEMP > 100.4, pain Last administered on 02/27/18at 08:35; Start 02/26/18 at 21:00 Acetaminophen/ Hydrocodone Bitart ([place] 5-325 Mg) 2 tab ONCE ONCE PO Last administered on 02/26/18at 19:07; Start 02/26/18 at 19:00; Stop 02/26/18 at 19:01 ; Status DC Amlodipine Besylate (Norvasc) 5 mg DAILY PO Last administered on 02/27/18at 08: 35; Start 02/27/18 at 09:00 Aspirin (Aspirin Chew) 81 mg DAILY CHEW Last administered on 02/27/18at 08:35; Start 02/27/18 at 09:00 Atorvastatin Calcium (Lipitor) 10 mg DAILY PO Last administered on 02/27/18at 08 :35; Start 02/27/18 at 09:00 Bisacodyl (Dulcolax Supp) 10 mg DAILY PRN RECTAL SEVERE CONSITIPATION; Start at 21:00 Carvedilol (Coreg) 25 mg Q12HR PO Last administered on 02/27/18at 08:34; Start 02/26/18 at 21:00 Dextrose (D50w (Vial) Inj) 50 ml UNSCH PRN IV PUSH HYPOGLYCEMIA-SEE COMMENTS; Start 02/26/18 at 21:00 Furosemide (Lasix Inj) 40 mg BID@,18 IV PUSH Last administered on 02/27/18at 08:34; Start 02/27/18 at 09:00 Glucagon (Glucagon Inj) 1 mg UNSCH PRN OTHER HYPOGLYCEMIA-SEE COMMENTS; Start 02/26/18 at 21:00 Heparin Sodium (Porcine) (Heparin Inj) 5,000 units Q8H SQ Last administered on 02/26/18at 23:45; Start 02/26/18 at 22:00 Insulin Aspart (NovoLOG SUPPLEMENTAL SCALE) 1 ACHS SLIDING SCALE SQ ; Start at 21:00 Lactulose (Lactulose Liq) 30 ml DAILY PRN PO SEVERE CONSITIPATION; Start at 21:00 Magnesium Hydroxide (Milk Of Magnesia Liq) 30 ml Q12H PRN PO Mild constipation ; Start 02/26/18 at 21:00 Naloxone HCl (Narcan Inj) 0.4 mg UNSCH PRN IV PUSH SEE LABEL COMMENTS; Start at 21:00 Ondansetron HCl (Zofran Inj) 4 mg Q6H PRN IVP NAUSEA OR VOMITING; Start at 21:00 Potassium Chloride (KCl) 10 meq BID PO Last administered on 02/27/18at 08:36; Start 02/26/18 at 22:00 Senna/Docusate Sodium (Mariam-Colace) 1 tab BID PO Last administered on at 08:35; Start 02/26/18 at 21:00 Sennosides (Senokot) 17.2 mg Q12H PRN PO Moderate constipation; Start 02/26/18 at 21:00 Sodium Chloride (NS Flush) 2 ml BID IV FLUSH Last administered on 02/26/18at 23: 43; Start 02/26/18 at 21:00 A/P Assessment and Plan A/P 1. Chest pain Reproducible on exam EKG shows normal sinus rhythm without ST segment elevation or depression, personally reviewed serial troponin negative. Continue home aspirin 2. CHF exacerbation- acute on chronic systolic Chest x-ray with pulmonary vascular congestion, personally reviewed BMP elevated at 1996, near baseline for this patient IV Lasix Supplemental oxygen as needed Continue LifeVest continue Coreg- will add lisinopril- recent echo with EF < 20% 3. Diabetes mellitus Sliding-scale insulin Monitor blood glucose 4. Hypertension/hyperlipidemia Continue home medications Discharge Planning dc home tomorrow if stable. Ginny Handley MD Feb 27, 2018 10:11
[2018-02-27] MEDS: LISINOPRIL 5 MG TAB PO SCH (10:28)
[2018-02-27 11:48] VITALS: BP 128/69; PULSE 65; RESP 20; TEMP 96.5; O2SAT 99
[2018-02-27] MEDS: HEPARIN SODIUM - SQ 10,000 UNITS/ML VIAL SQ SCH ×2 (13:29→19:57)
--- NOTE | 2018-02-27 14:47 | EKG ---
Date Performed: 02/26/2018 Time Performed: 16:47:09 PTAGE: 53 years EKG: Sinus rhythm POSSIBLE ANTERIOR MYOCARDIAL INFARCTION INFERIOR MYOCARDIAL INFARCTION ABNORMAL ECG Since the PREVIOUS TRACING , no significant change noted PREVIOUS TRACIN01/15/18 DOCTOR: Israel Galeas Interpretating Date/Time 02/27/2018 14:46:15
--- NOTE | 2018-02-27 14:49 | EKG ---
Date Performed: 02/27/2018 Time Performed: 05:50:25 PTAGE: 53 years EKG: Sinus rhythm POSSIBLE RIGHT VENTRICULAR HYPERTROPHY PROLONGED QT INTERVAL Compared to previous tracing rate has s lowed ABNORMAL ECG PREVIOUS TRACING : 02/26/2018 22.50 DOCTOR: Israel Galeas Interpretating Date/Time 02/27/2018 14:48:09
--- NOTE | 2018-02-27 14:49 | EKG ---
Date Performed: 02/26/2018 Time Performed: 22:50:10 PTAGE: 53 years EKG: Sinus rhythm PATTERN CONSISTENT WITH PULMONARY DISEASE LEFT ANTERIOR FASCICULAR BLOCK NONSPECIFIC T-WAVE ABNORMAL ITY Since the previous tracing, no significant change noted ABNORMAL ECG PREVIOUS TRACING : 02/26/2018 16.47 DOCTOR: Israel Galeas Interpretating Date/Time 02/27/2018 14:47:21
[2018-02-27 15:13] VITALS: BP 105/64; PULSE 64; RESP 20; TEMP 97.8; O2SAT 98
[2018-02-27] MEDS ORDERED: LISI-519 PO (16:54)
--- NOTE | 2018-02-27 17:05 | HHI.DCPOC ---
Discharge Care Plan Diagnosis: (1) CHF exacerbation (2) DM (diabetes mellitus) Goals to Promote Your Health * To prevent worsening of your condition and complications * To maintain your health at the optimal level Directions to Meet Your Goals Take your medications as prescribed Follow your dietary instruction Follow activity as directed Keep your appointments as scheduled Take your immunizations and boosters as scheduled If your symptoms worsen call your PCP, if no PCP go to Urgent Care Center or Emergency Room Smoking is Dangerous to Your Health. Avoid second hand smoke Call the 24-hour hour crisis hotline for domestic abuse at Rita Mccullough PA-C Feb 27, 2018 5:05 pm
[2018-02-27 21:45] VITALS: BP 107/69; PULSE 67; RESP 18; TEMP 97.6; O2SAT 99
[2018-02-28 00:45] VITALS: BP 124/76; PULSE 66; RESP 16; TEMP 98; O2SAT 100
[2018-02-28 03:42] VITALS: BP 124/74; PULSE 68; RESP 16; TEMP 97.7; O2SAT 99
[2018-02-28] MEDS: HEPARIN SODIUM - SQ 10,000 UNITS/ML VIAL SQ SCH (05:32)
[2018-02-28] MEDS: INSULIN ASPART SUPPLEMENTAL SCALE SQ SCH (08:00)
[2018-02-28 08:09] VITALS: BP 132/70; PULSE 67; RESP 16; TEMP 98.6; O2SAT 97
[2018-02-28] MEDS: LISINOPRIL 5 MG TAB PO SCH (08:30)
[2018-02-28] MEDS: POTASSIUM CHLORIDE 10 MEQ CONTROLLED RELEASE TAB PO SCH (08:30)
[2018-02-28] MEDS: ASPIRIN 81 MG CHEW TAB CHEW SCH (08:30)
[2018-02-28] MEDS: ATORVASTATIN 10 MG TAB PO SCH (08:30)
[2018-02-28] MEDS: DOCUSATE SODIUM 50 MG/SENNA 8.6 MG TAB PO SCH (08:30)
[2018-02-28] MEDS: amLODIPine BESYLATE 5 MG TAB PO SCH (08:30)
[2018-02-28] MEDS: CARVEDILOL 12.5 MG TAB PO SCH (08:30)
[2018-02-28] MEDS: FUROSEMIDE 40 MG/4 ML VIAL IV PUSH SCH (08:31)
[2018-02-28] MEDS: SODIUM CHLORIDE 0.9% FLUSH 10 ML FLUSH IV FLUSH SCH (08:31)
--- NOTE | 2018-02-28 09:33 | HHI.PR ---
Subjective Remarks in no acute distress. denies chest pain or sob. doing better and wants to go home today. Objective Vitals Vital Signs Date Time Temp Pulse Resp B/P (MAP) Pulse Ox O2 Delivery O2 Flow Rate FiO2 02/28/18 08:09 98.6 67 16 132/70 (90) 97 02/28/18 03:42 97.7 68 16 124/74 (91) 99 02/28/18 00:45 98.0 66 16 124/76 (92) 100 02/27/18 21:45 97.6 67 18 107/69 (82) 99 02/27/18 15:13 97.8 64 20 105/64 (78) 98 02/27/18 11:48 96.5 65 20 128/69 (88) 99 I/O 02/27/18 02/27/18 02/27/18 02/28/18 02/28/18 02/28/18 07:00 15:00 23:00 07:00 15:00 23:00 Intake Total 750 ml Output Total 950 ml Balance -200 ml Intake Oral 750 ml Output Urine Total 950 ml Result Diagram: 02/27/18 0359 02/27/18 0359 Imaging Last Impressions Chest X-Ray 02/26/18 170 Signed Impressions: Service Date/Time: Monday, February 26, 2018 17:34 - CONCLUSION: Diffuse mild interstitial prominence. Clifford Carmen MD Objective Remarks GENERAL: This is a well-nourished, well-developed patient, in no apparent distress. CARDIOVASCULAR: Regular rate and regular rhythm without murmurs, gallops, or rubs. RESPIRATORY: Clear to auscultation. Breath sounds equal bilaterally. No wheezes , rales, or rhonchi. GASTROINTESTINAL: Abdomen soft, non-tender, nondistended. Normal, active bowel sounds MUSCULOSKELETAL: right foot covered with clean dressing. NEURO: Alert & Oriented x4 to person, place, time, situation. Moves all ext x4 Medications and IVs Inpatient Medications Acetaminophen (Tylenol) 650 mg Q4H PRN PO TEMP > 100.4, pain Last administered on 02/27/18at 08:35; Start 02/26/18 at 21:00 Acetaminophen/ Hydrocodone Bitart ([place] 5-325 Mg) 2 tab Q4H PRN PO PAIN 7-10 Last administered on 02/27/18at 10:29; Start 02/27/18 at 10:00 Amlodipine Besylate (Norvasc) 5 mg DAILY PO Last administered on 02/28/18 08: 30; Start 02/27/18 at 09:00 Aspirin (Aspirin Chew) 81 mg DAILY CHEW Last administered on 02/28/18 08:30; Start 02/27/18 at 09:00 Atorvastatin Calcium (Lipitor) 10 mg DAILY PO Last administered on 02/28/18 08 :30; Start 02/27/18 at 09:00 Bisacodyl (Dulcolax Supp) 10 mg DAILY PRN RECTAL SEVERE CONSITIPATION; Start at 21:00 Carvedilol (Coreg) 25 mg Q12HR PO Last administered on 02/28/18 08:30; Start 02/26/18 at 21:00 Dextrose (D50w (Vial) Inj) 50 ml UNSCH PRN IV PUSH HYPOGLYCEMIA-SEE COMMENTS; Start 02/26/18 at 21:00 Furosemide (Lasix Inj) 40 mg BID@,18 IV PUSH Last administered on 02/28/18at 08:31; Start 02/27/18 at 09:00 Glucagon (Glucagon Inj) 1 mg UNSCH PRN OTHER HYPOGLYCEMIA-SEE COMMENTS; Start 02/26/18 at 21:00 Heparin Sodium (Porcine) (Heparin Inj) 5,000 units Q8H SQ Last administered on 02/28/18at 05:32; Start 02/26/18 at 22:00 Insulin Aspart (NovoLOG SUPPLEMENTAL SCALE) 1 ACHS SLIDING SCALE SQ Last administered on 02/27/18at 17:00; Start 02/26/18 at 21:00 Lactulose (Lactulose Liq) 30 ml DAILY PRN PO SEVERE CONSITIPATION; Start at 21:00 Lisinopril (Prinivil) 5 mg DAILY PO Last administered on 02/28/18at 08:30; Start 02/27/18 at 10:30 Magnesium Hydroxide (Milk Of Magnesia Liq) 30 ml Q12H PRN PO Mild constipation ; Start 02/26/18 at 21:00 Naloxone HCl (Narcan Inj) 0.4 mg UNSCH PRN IV PUSH SEE LABEL COMMENTS; Start at 21:00 Ondansetron HCl (Zofran Inj) 4 mg Q6H PRN IVP NAUSEA OR VOMITING; Start at 21:00 Potassium Chloride (KCl) 10 meq BID PO Last administered on 02/28/18at 08:30; Start 02/26/18 at 22:00 Senna/Docusate Sodium (Mariam-Colace) 1 tab BID PO Last administered on at 08:30; Start 02/26/18 at 21:00 Sennosides (Senokot) 17.2 mg Q12H PRN PO Moderate constipation; Start 02/26/18 at 21:00 Sodium Chloride (NS Flush) 2 ml BID IV FLUSH Last administered on 02/28/18at 08: 31; Start 02/26/18 at 21:00 A/P Assessment and Plan A/P 1. Chest pain-resolved. Reproducible on exam EKG shows normal sinus rhythm without ST segment elevation or depression, personally reviewed serial troponin negative. Continue home aspirin 2. CHF exacerbation- acute on chronic systolic- improved. Chest x-ray with pulmonary vascular congestion, personally reviewed BMP elevated at 1996, near baseline for this patient continue diuretics. Continue LifeVest continue Coreg- added lisinopril- recent echo with EF < 20% 3. Diabetes mellitus Sliding-scale insulin Monitor blood glucose 4. Hypertension/hyperlipidemia Continue home medications Discharge Planning dc home today. see med list. f/u; pcp. Ginny Handley MD Feb 28, 2018 09:33
--- NOTE | 2018-02-28 09:34 | HHI.DS ---
Discharge Summary Admission Date Feb 26, 2018 at 19:39 Discharge Date: Feb 28, 2018 Admitting Diagnosis CHF exacerbation (1) Chest pain ICD Code: R07.9 - Chest pain, unspecified Diagnosis: Principal Procedures none Brief History - From Admission 53-year-old male with a past medical history significant for CHF (last echo done 01/27/18 with an EF of less than 20%), diabetes mellitus, hypertension and hyperlipidemia presents to the emergency department for the evaluation of left- sided chest pain. The patient reports the pain started approximately 1-1/2 days ago and was worse this morning. He states the pain is on the left side, nonradiating and sharp. Reproducible with palpation. He reports dyspnea on exertion. He denies any fever/chills. Positive cough. No abdominal pain. No nausea/vomiting/diarrhea. No weakness/fatigue. CBC/BMP: 02/27/18 0359 02/27/18 0359 Significant Findings Laboratory Tests Test 02/26/18 17:15 02/26/18 23:00 02/27/18 03:59 Hemoglobin 10.4 GM/DL (13.0-17.0) 9.3 GM/DL (13.0-17.0) Hematocrit 33.4 % (39.0-51.0) 30.5 % (39.0-51.0) Mean Corpuscular Volume 70.7 FL (80.0-100.0) 70.1 FL (80.0-100.0) Mean Corpuscular Hemoglobin 22.0 PG (27.0-34.0) 21.4 PG (27.0-34.0) Mean Corpuscular Hemoglobin Concent 31.1 % (32.0-36.0) 30.5 % (32.0-36.0) Red Cell Distribution Width 20.9 % (11.6-17.2) 21.1 % (11.6-17.2) Neutrophils (%) (Auto) 72.7 % (16.0-70.0) Prothrombin Time 15.2 SEC (9.8-11.6) Random Glucose 165 MG/DL (74-106) 119 MG/DL (74-106) Total Protein 8.3 GM/DL (6.4-8.2) Albumin 2.7 GM/DL (3.4-5.0) Calcium Level 8.4 MG/DL (8.5-10.1) 8.2 MG/DL (8.5-10.1) Magnesium Level 1.4 MG/DL (1.5-2.5) Alkaline Phosphatase 166 U/L (45-117) Aspartate Amino Transf (AST/SGOT) 67 U/L (15-37) Total Bilirubin 1.2 MG/DL (0.2-1.0) Sodium Level 134 MEQ/L (136-145) Estimat Glomerular Filtration Rate 80 ML/MIN (>89) 87 ML/MIN (>89) B-Type Natriuretic Peptide 1996 PG/ML (0-100) Red Blood Count 4.35 MIL/MM3 (4.50-5.90) Monocytes (%) (Auto) 9.0 % (0.0-8.0) Eosinophils (%) (Auto) 5.1 % (0.0-4.0) Imaging Last Impressions Chest X-Ray 02/26/18 1702 Signed Impressions: Service Date/Time: Monday, February 26, 2018 17:34 - CONCLUSION: Diffuse mild interstitial prominence. Clifford Carmen MD PE at Discharge GENERAL: This is a well-nourished, well-developed patient, in no apparent distress. CARDIOVASCULAR: Regular rate and regular rhythm without murmurs, gallops, or rubs. RESPIRATORY: Clear to auscultation. Breath sounds equal bilaterally. No wheezes , rales, or rhonchi. GASTROINTESTINAL: Abdomen soft, non-tender, nondistended. Normal, active bowel sounds MUSCULOSKELETAL: right foot covered with clean dressing. NEURO: Alert & Oriented x4 to person, place, time, situation. Moves all ext x4 Hospital Course 1. Chest pain-resolved. Reproducible on exam EKG shows normal sinus rhythm without ST segment elevation or depression, personally reviewed serial troponin negative. Continue home aspirin 2. CHF exacerbation- acute on chronic systolic- improved. Chest x-ray with pulmonary vascular congestion, personally reviewed BMP elevated at 1995, near baseline for this patient continue Lasix Continue LifeVest continue Coreg- added lisinopril- recent echo with EF < 20% 3. Diabetes mellitus Sliding-scale insulin Monitor blood glucose 4. Hypertension/hyperlipidemia Continue home medications Pt Condition on Discharge: Stable Discharge Disposition: Discharge Home Discharge Time: <= 30 minutes Discharge Instructions DIET: Follow Instructions for: Heart Healthy Diet, Diabetic Diet Activities you can perform: Regular-No Restrictions Ginny Handley MD Feb 28, 2018 09:34
== END 2018-02-28 11:08 | disposition home or self-care (01) ==
LOC: NEPE 16:18 → NEDA 19:39 → NEPHCDU 21:20
PROVIDERS: ADMIT Internal Medicine; ATTEND Internal Medicine
DX: R07.89 Other chest pain (principal); I11.0 Hypertensive heart disease with heart failure; I50.23 Acute on chronic systolic (congestive) heart failure; I25.10 Atherosclerotic heart disease of native coronary artery without angina pectoris; I45.81 Long QT syndrome; I44.4 Left anterior fascicular block; R94.31 Abnormal electrocardiogram [ECG] [EKG]; E11.40 Type 2 diabetes mellitus with diabetic neuropathy, unspecified; E78.5 Hyperlipidemia, unspecified; R05 Cough; Z79.899 Other long term (current) drug therapy; Z79.82 Long term (current) use of aspirin; Z87.891 Personal history of nicotine dependence
CPT/HCPCS: 71046; 80048; 80053; 82550; 82948; 83735; 83880; 84484; 85025; 85610; 85730; 93005; 96372; 96374; 96376; 99285; G0378; J1644; J1815; J1940

== ENCOUNTER 2018-07-13 07:41 | Inpatient (IN) ==
--- NOTE | 2018-07-13 08:23 | XR ---
EXAM DATE: 07/13/2018 8:18 AM EDT AGE/SEX: 53 years / Male INDICATIONS: Short of breath CLINICAL DATA: This is the patient's initial encounter. Patient reports that signs and symptoms have been present for 4 - 6 days and indicates a pain score of 0/10. MEDICAL/SURGICAL HISTORY: . Congestive heart failure. Hypercholesterolemia. Hypertension. Glas ses. Neuropathy. Coronary artery disease. Anticoagulant therapy. Deep vein thrombosis. Gastroesophage al reflux disease. Arthritis. Renal disease. Diabetes. Depression. Anxiety. MRSA. . Amputations bila teral toes COMPAR[place]: [facility] [place] [facility] [place], 02/26/2018. . FINDINGS: Lungs are clear. Single lead pacer/ICD from a left subclavian transvenous approach. No definite conso lidation or effusion. Cardiomegaly. Osseous structures are intact. CONCLUSION: Negative examination. Electronically signed by: Alexis Villalobos MD 07/13/2018 8:22 AM EDT
--- NOTE | 2018-07-13 08:36 | ED ---
HPI General Chief complaint: Respiratory Symptoms Stated complaint: Sob Time Seen by Provider: 07/13/18 07:59 Source: patient Mode of arrival: ambulatory Limitations: no limitations History of Present Illness HPI narrative: Patient is a 53-year-old male with history of CHF, EF of 20%, who comes in complaining of cough and shortness of breath. He says he feels like he has fluid buildup. He says he feels pressure in his chest and his abdomen, which makes him think that he has increased fluid present. He reports compliance with his Lasix. He says he has had to sleep on 4 pillows because he gets too short of breath when he lays flat. He says this is been going on for the past 2 days. He denies fever chills. He denies nausea or vomiting. Severity is mild to moderate. Related Data Home Medications Medication Instructions Recorded Confirmed Aspir-81 81 mg PO DAILY 07/13/18 07/13/18 furosemide [Lasix] 20 mg PO Q6HR 07/13/18 07/13/18 insulin aspart U-100 [Novolog 15 unit SUB-Q BID 07/13/18 07/13/18 Flexpen U-100 Insulin] Allergies Allergy/AdvReac Type Severity Reaction Status Date / Time amoxicillin Allergy Mild Hives Verified 01/20/18 14:32 oxycodone Allergy Mild Hives Verified 01/20/18 14:32 Review of Systems ROS: all other systems reviewed are negative Constitutional Denies chills and Denies fever(s) ENT Denies dizziness Cardiovascular Reports chest pain and Reports dyspnea on exertion Respiratory Reports cough Gastrointestinal Denies nausea and Denies vomiting Musculoskeletal Denies myalgias and Denies arthralgias Integumentary/Breasts Denies lesions and Denies rash Neurologic Denies focal weakness and Denies numbness PMFSH Social History Social History Substance History: Active Abuse Second Hand Smoke Exposure: No Smoking Status: Current some day smoker Tobacco Type: Cigarettes How Often Do You Have a Drink Containing Alcohol: Never Recent Travel in [facility] within the Last 8 Weeks: No Recent Out of Country Travel within the Last 8 Weeks: No Immunization History Tetanus Immunization: Unsure Exam Narrative Exam Narrative: GENERAL: Awake and alert, no acute distress. SKIN: Focused skin assessment warm/dry. HEAD: Atraumatic. Normocephalic. EYES: Pupils equal and round. No scleral icterus. ENT: Mucous membranes pink and moist. NECK: Trachea midline. No JVD. CARDIOVASCULAR: Regular rate and rhythm. No murmur appreciated. RESPIRATORY: No accessory muscle use. Clear to auscultation. Breath sounds equal bilaterally. GASTROINTESTINAL: Abdomen soft, nondistended. Diffusely tender to palpation. No rebound or guarding. MUSCULOSKELETAL: No obvious deformities. No clubbing. No cyanosis. No edema. NEUROLOGICAL: Awake and alert. No obvious cranial nerve deficits. Motor grossly within normal limits. Normal speech. PSYCHIATRIC: Appropriate mood and affect; insight and judgment normal. Course Initial Documented Vital Signs Temperature 97.5 F L 07/13/18 07:46 Pulse Rate 92 H 07/13/18 07:46 Respiratory Rate 20 07/13/18 07:46 Blood Pressure 135/79 07/13/18 07:46 Pulse Oximetry 100 07/13/18 07:46 Last Documented Vital Signs Temperature 97.5 F L 07/14/18 12:00 Pulse Rate 75 07/14/18 12:00 Respiratory Rate 17 07/14/18 12:00 Blood Pressure 128/78 07/14/18 12:00 Pulse Oximetry 99 07/14/18 12:00 Medical Decision Making MDM Narrative Medical decision making narrative: Patient is a 53-year-old male who comes in complaining of fluid retention. He says he has pressure in his abdomen and chest which are similar to previous episodes. IV established, labs sent. Labs show elevated BNP. CT abdomen and pelvis shows a large pleural effusion. There is also evidence of ascites. Patient given Lasix. Given pain medicine. He will be admitted for further management. Medical Screen Exam Complete: Yes Emergency Medical Condition: Yes Differential Diagnosis Differential Diagnosis: CHF exacerbation versus ACS versus electrolyte abnormality versus colitis versus diverticulitis versus ascites Medical Records Medical records reviewed: Yes I reviewed the patient's medical records. Lab Data Lab results reviewed: Yes I reviewed the patient's lab results. Result diagrams: 07/14/18 06:50 07/14/18 06:50 Lab Results 07/13/18 07/13/18 07/13/18 Range/Units 08:31 08:31 08:31 WBC 5.3 (4.0-11.0) th/mm3 RBC 4.19 L (4.50-5.90) mil/mm3 Hgb 9.7 L (13.0-17.0) gm/dL Hct 30.0 L (39.0-51.0) % MCV 71.6 L (80.0-100.0) fL MCH 23.1 L (27.0-34.0) pg MCHC 32.2 (32.0-36.0) % RDW 18.6 H (11.6-17.2) % Plt Count 178 (150-450) th/mm3 MPV 9.5 (7.0-11.0) fL Neut % (Auto) 63.9 (16.0-70.0) % Lymph % (Auto) 21.7 (9.0-44.0) % Pender % (Auto) 9.1 H (0.0-8.0) % Eos % (Auto) 3.6 (0.0-4.0) % Baso % (Auto) 1.7 (0.0-2.0) % Neut # (Auto) 3.4 (1.8-7.7) th/mm3 Lymph # (Auto) 1.2 (1.0-4.8) th/mm3 Pender # (Auto) 0.5 (0.0-0.9) th/mm3 Eos # (Auto) 0.2 (0.0-0.4) th/mm3 Baso # (Auto) 0.1 (0.0-0.2) th/mm3 WBC Differential . Differential Comment Auto diff final Hematology Comments PT 15.8 H (9.8-11.6) sec INR 1.6 Ratio APTT 31.7 H (24.3-30.1) sec Sodium 137 (136-145) meq/L Potassium 3.7 (3.5-5.1) meq/L Chloride 102 (98-107) meq/L Carbon Dioxide 22.6 (21.0-32.0) meq/L Anion Gap 12 (5-15) meq/L BUN 19 H (7-18) mg/dL Creatinine 1.13 (0.60-1.30) mg/dL Estimated GFR 68 L (>89) mL/min POC Glucose (68-110) mg/dl Random Glucose 110 H (74-106) mg/dL Calcium 8.5 (8.5-10.1) mg/dL Total Bilirubin 1.3 H (0.2-1.0) mg/dL AST 53 H (15-37) U/L ALT 42 (12-78) U/L Alkaline Phosphatase 200 H (45-117) U/L Total Creatine Kinase 151 (39-308) U/L CK-MB (CK-2) 5.0 H (0.5-3.6) ng/mL Troponin I 0.03 (0.02-0.05) ng/mL B-Natriuretic Peptide (0-100) pg/mL Total Protein 8.4 H (6.4-8.2) g/dL Albumin 2.7 L (3.4-5.0) g/dL Lipase (73-393) U/L Urine Color (Yellw/Straw) Urine Clarity (Clear) Urine pH (5.0-8.5) Ur Specific [place] (1.002-1.035) Urine Protein (Neg-Trace) mg/dL Urine Glucose (UA) (Negative) mg/dL Urine Ketones (Negative) mg/dL Urine Occult Blood (Negative) Urine Nitrate (Negative) Urine Bilirubin (Negative) Urine Urobilinogen (Less than 2) mg/dL Ur Leukocyte Esterase (Negative) Urine RBC (0-3) /hpf Urine WBC (0-5) /hpf Ur Squamous Epith Cells (0-5) /hpf Urine Bacteria (None) /hpf Urine Mucus (Occasional) /lpf Micro UA Comment Ur Microscopic Review Urine Culture Comments 07/13/18 07/13/18 07/13/18 Range/Units 08:31 17:18 18:34 WBC (4.0-11.0) th/mm3 RBC (4.50-5.90) mil/mm3 Hgb (13.0-17.0) gm/dL Hct (39.0-51.0) % MCV (80.0-100.0) fL MCH (27.0-34.0) pg MCHC (32.0-36.0) % RDW (11.6-17.2) % Plt Count (150-450) th/mm3 MPV (7.0-11.0) fL Neut % (Auto) (16.0-70.0) % Lymph % (Auto) (9.0-44.0) % Pender % (Auto) (0.0-8.0) % Eos % (Auto) (0.0-4.0) % Baso % (Auto) (0.0-2.0) % Neut # (Auto) (1.8-7.7) th/mm3 Lymph # (Auto) (1.0-4.8) th/mm3 Pender # (Auto) (0.0-0.9) th/mm3 Eos # (Auto) (0.0-0.4) th/mm3 Baso # (Auto) (0.0-0.2) th/mm3 WBC Differential Differential Comment Hematology Comments PT (9.8-11.6) sec INR Ratio APTT (24.3-30.1) sec Sodium (136-145) meq/L Potassium (3.5-5.1) meq/L Chloride (98-107) meq/L Carbon Dioxide (21.0-32.0) meq/L Anion Gap (5-15) meq/L BUN (7-18) mg/dL Creatinine (0.60-1.30) mg/dL Estimated GFR (>89) mL/min POC Glucose 158 H (68-110) mg/dl Random Glucose (74-106) mg/dL Calcium (8.5-10.1) mg/dL Total Bilirubin (0.2-1.0) mg/dL AST (15-37) U/L ALT (12-78) U/L Alkaline Phosphatase (45-117) U/L Total Creatine Kinase (39-308) U/L CK-MB (CK-2) (0.5-3.6) ng/mL Troponin I (0.02-0.05) ng/mL B-Natriuretic Peptide 2362 H (0-100) pg/mL Total Protein (6.4-8.2) g/dL Albumin (3.4-5.0) g/dL Lipase (73-393) U/L Urine Color Yellow (Yellw/Straw) Urine Clarity Hazy H (Clear) Urine pH 7.0 (5.0-8.5) Ur Specific [place] 1.006 (1.002-1.035) Urine Protein Negative (Neg-Trace) mg/dL Urine Glucose (UA) Negative (Negative) mg/dL Urine Ketones Negative (Negative) mg/dL Urine Occult Blood Negative (Negative) Urine Nitrate Negative (Negative) Urine Bilirubin Negative (Negative) Urine Urobilinogen Less than 2 (Less than 2) mg/dL Ur Leukocyte Esterase Negative (Negative) Urine RBC Less than 1 (0-3) /hpf Urine WBC 1 (0-5) /hpf Ur Squamous Epith Cells 3 (0-5) /hpf Urine Bacteria Rare H (None) /hpf Urine Mucus Few H (Occasional) /lpf Micro UA Comment Culture not ind Ur Microscopic Review Not Reportable Urine Culture Comments Culture not ind 07/14/18 07/14/18 07/14/18 Range/Units 06:50 06:50 06:50 WBC 4.6 (4.0-11.0) th/mm3 RBC 4.44 L (4.50-5.90) mil/mm3 Hgb 9.8 L (13.0-17.0) gm/dL Hct 33.3 L (39.0-51.0) % MCV 75.1 L D (80.0-100.0) fL MCH 22.0 L (27.0-34.0) pg MCHC 29.3 L (32.0-36.0) % RDW 18.9 H (11.6-17.2) % Plt Count 154 (150-450) th/mm3 MPV 9.0 (7.0-11.0) fL Neut % (Auto) 62.3 (16.0-70.0) % Lymph % (Auto) 20.8 (9.0-44.0) % Pender % (Auto) 9.3 H (0.0-8.0) % Eos % (Auto) 6.6 H (0.0-4.0) % Baso % (Auto) 1.0 (0.0-2.0) % Neut # (Auto) 2.8 (1.8-7.7) th/mm3 Lymph # (Auto) 0.9 L (1.0-4.8) th/mm3 Pender # (Auto) 0.4 (0.0-0.9) th/mm3 Eos # (Auto) 0.3 (0.0-0.4) th/mm3 Baso # (Auto) 0.0 (0.0-0.2) th/mm3 WBC Differential . Differential Comment Auto diff final Hematology Comments PT (9.8-11.6) sec INR Ratio APTT (24.3-30.1) sec Sodium 136 (136-145) meq/L Potassium 3.8 (3.5-5.1) meq/L Chloride 103 (98-107) meq/L Carbon Dioxide 21.4 (21.0-32.0) meq/L Anion Gap 12 (5-15) meq/L BUN 20 H (7-18) mg/dL Creatinine 1.11 (0.60-1.30) mg/dL Estimated GFR 69 L (>89) mL/min POC Glucose (68-110) mg/dl Random Glucose 113 H (74-106) mg/dL Calcium 8.0 L (8.5-10.1) mg/dL Total Bilirubin (0.2-1.0) mg/dL AST (15-37) U/L ALT (12-78) U/L Alkaline Phosphatase (45-117) U/L Total Creatine Kinase (39-308) U/L CK-MB (CK-2) (0.5-3.6) ng/mL Troponin I (0.02-0.05) ng/mL B-Natriuretic Peptide 1456 H (0-100) pg/mL Total Protein (6.4-8.2) g/dL Albumin (3.4-5.0) g/dL Lipase (73-393) U/L Urine Color (Yellw/Straw) Urine Clarity (Clear) Urine pH (5.0-8.5) Ur Specific [place] (1.002-1.035) Urine Protein (Neg-Trace) mg/dL Urine Glucose (UA) (Negative) mg/dL Urine Ketones (Negative) mg/dL Urine Occult Blood (Negative) Urine Nitrate (Negative) Urine Bilirubin (Negative) Urine Urobilinogen (Less than 2) mg/dL Ur Leukocyte Esterase (Negative) Urine RBC (0-3) /hpf Urine WBC (0-5) /hpf Ur Squamous Epith Cells (0-5) /hpf Urine Bacteria (None) /hpf Urine Mucus (Occasional) /lpf Micro UA Comment Ur Microscopic Review Urine Culture Comments 07/14/18 Range/Units 11:35 WBC (4.0-11.0) th/mm3 RBC (4.50-5.90) mil/mm3 Hgb (13.0-17.0) gm/dL Hct (39.0-51.0) % MCV (80.0-100.0) fL MCH (27.0-34.0) pg MCHC (32.0-36.0) % RDW (11.6-17.2) % Plt Count (150-450) th/mm3 MPV (7.0-11.0) fL Neut % (Auto) (16.0-70.0) % Lymph % (Auto) (9.0-44.0) % Pender % (Auto) (0.0-8.0) % Eos % (Auto) (0.0-4.0) % Baso % (Auto) (0.0-2.0) % Neut # (Auto) (1.8-7.7) th/mm3 Lymph # (Auto) (1.0-4.8) th/mm3 Pender # (Auto) (0.0-0.9) th/mm3 Eos # (Auto) (0.0-0.4) th/mm3 Baso # (Auto) (0.0-0.2) th/mm3 WBC Differential Differential Comment Hematology Comments PT (9.8-11.6) sec INR Ratio APTT (24.3-30.1) sec Sodium (136-145) meq/L Potassium (3.5-5.1) meq/L Chloride (98-107) meq/L Carbon Dioxide (21.0-32.0) meq/L Anion Gap (5-15) meq/L BUN (7-18) mg/dL Creatinine (0.60-1.30) mg/dL Estimated GFR (>89) mL/min POC Glucose (68-110) mg/dl Random Glucose (74-106) mg/dL Calcium (8.5-10.1) mg/dL Total Bilirubin (0.2-1.0) mg/dL AST (15-37) U/L ALT (12-78) U/L Alkaline Phosphatase (45-117) U/L Total Creatine Kinase (39-308) U/L CK-MB (CK-2) (0.5-3.6) ng/mL Troponin I (0.02-0.05) ng/mL B-Natriuretic Peptide (0-100) pg/mL Total Protein (6.4-8.2) g/dL Albumin (3.4-5.0) g/dL Lipase 68 L (73-393) U/L Urine Color (Yellw/Straw) Urine Clarity (Clear) Urine pH (5.0-8.5) Ur Specific [place] (1.002-1.035) Urine Protein (Neg-Trace) mg/dL Urine Glucose (UA) (Negative) mg/dL Urine Ketones (Negative) mg/dL Urine Occult Blood (Negative) Urine Nitrate (Negative) Urine Bilirubin (Negative) Urine Urobilinogen (Less than 2) mg/dL Ur Leukocyte Esterase (Negative) Urine RBC (0-3) /hpf Urine WBC (0-5) /hpf Ur Squamous Epith Cells (0-5) /hpf Urine Bacteria (None) /hpf Urine Mucus (Occasional) /lpf Micro UA Comment Ur Microscopic Review Urine Culture Comments Imaging Data Radiologist's impression: Chest X-Ray 07/13/18 08:05 CONCLUSION: Negative examination. Abdomen/Pelvis CT 07/13/18 08:36 CONCLUSION: 1. Ascites, body wall edema, and large right pleural effusion. 2. Questionable organizing fluid collection in the right lower quadrant inferior to the liver with a few tiny locules of air versus fluid-filled bowel loops in this region. A repeat examination after adequate oral contrast administration would be helpful for further evaluation. Abdomen/Pelvis CT 07/13/18 11:35 CONCLUSION: 1. Bowel wall thickening is seen involving the descending colon with a small amount of adjacent free fluid accounting for the findings on the recent CT exam. This would be characteristic of colitis. 2. Right effusion. Discharge Plan Discharge Disposition Patient Disposition: 30 Still Patient Discharge Condition Condition: Stable Discharge Details Diagnosis: CHF (congestive heart failure), Colitis, Abdominal pain Physicians Team ED Provider: Xiao Szymanski Primary Care Provider: Primary Care Yoli Phan Attending Provider: Keara Tilley Discharge Interventions Interventions: ED Discharge Assessment Last Done: 07/13/18 19:02 Vital Signs Last Done: 07/13/18 11:49 Status ED Status: Left Department Discharge Information Discharge Date/Time: 07/13/18 19:18
[2018-07-13] MEDS ORDERED: Morphine Inj 4 MG/ML Vial IV.PUSH ONE ×2 (10:08→15:15)
[2018-07-13 10:11] LABS: Activated Partial Thrombo Time 31.7 sec (24.3-30.1); Baso # (Auto) 0.1 th/mm3 (0.0-0.2); Baso % (Auto) 1.7 % (0.0-2.0); Eos # (Auto) 0.2 th/mm3 (0.0-0.4); Eos % (Auto) 3.6 % (0.0-4.0); Hemoglobin 9.7 gm/dL (13.0-17.0); INR 1.6 Ratio; Lymph # (Auto) 1.2 th/mm3 (1.0-4.8); Lymph % (Auto) 21.7 % (9.0-44.0); Mean Corpuscular HGB Conc 32.2 % (32.0-36.0); Mean Corpuscular Hemoglobin 23.1 pg (27.0-34.0); Mean Corpuscular Volume 71.6 fL (80.0-100.0); Mean Platelet Volume 9.5 fL (7.0-11.0); Mono # (Auto) 0.5 th/mm3 (0.0-0.9); Mono % (Auto) 9.1 % (0.0-8.0); Neut # (Auto) 3.4 th/mm3 (1.8-7.7); Neut % (Auto) 63.9 % (16.0-70.0); Platelet Count 178 th/mm3 (150-450); Prothrombin Time 15.8 sec (9.8-11.6); Red Blood Count 4.19 mil/mm3 (4.50-5.90); Red Cell Distribution Width 18.6 % (11.6-17.2); White Blood Count 5.3 th/mm3 (4.0-11.0)
[2018-07-13 10:17] LABS: Alanine Aminotransferase 42 U/L (12-78); Albumin 2.7 g/dL (3.4-5.0); Anion Gap 12 meq/L (5-15); Aspartate Aminotransferase 53 U/L (15-37); Blood Urea Nitrogen 19 mg/dL (7-18); Calcium 8.5 mg/dL (8.5-10.1); Carbon Dioxide 22.6 meq/L (21.0-32.0); Chloride 102 meq/L (98-107); Glomerular Filtration Rate 68 mL/min (>89); Glucose,Random 110 mg/dL (74-106); Potassium 3.7 meq/L (3.5-5.1); Sodium 137 meq/L (136-145)
[2018-07-13 10:21] LABS: Alkaline Phosphatase 200 U/L (45-117); Creatine Kinase 151 U/L (39-308); Total Protein 8.4 g/dL (6.4-8.2); Troponin I 0.03 ng/mL (0.02-0.05)
--- NOTE | 2018-07-13 11:30 | CT ---
EXAM DATE: 07/13/2018 11:15 AM EDT AGE/SEX: 53 years / Male INDICATIONS: Umbilical abdominal pain for three days. CLINICAL DATA: This is the patient's initial encounter. Patient reports that signs and symptoms have been present for 3 days and indicates a pain score of 5/10. MEDICAL/SURGICAL HISTORY: Congestive heart failure. None. ORAL CONTRAST: No oral contrast ingested. RADIATION DOSE: 6.77 CTDI (mGy) COMPARISON: [facility], CTA RUNOFF W 3D RECON, 01/23/2018. . TECHNIQUE: Multiple contiguous axial images were obtained through the abdomen and pelvis following b olus infusion of 93 ml Omnipaque 350 (iohexol) nonionic water-soluble contrast as a single exam dos e. No oral contrast ingested. Using automated exposure control and adjustment of the mA and/or kV ac cording to patient size, radiation dose was kept as low as reasonably achievable to obtain optimal di agnostic quality images. DICOM format image data is available electronically for review and comparis on. FINDINGS: There is a large right pleural effusion. Moderate ascites is seen. Liver, spleen, gallbladder, pancre as, bilateral kidneys unremarkable. Episodic calcification of the aorta and iliac vessels are noted. Urinary bladder and prostate are unremarkable. Vas deferens calcifications are present. No evidence o f bowel obstruction. There is mild body wall edema. Mild degenerative changes of the spine are noted. In the right lower quadrant inferior to the liver, a few small locules of air are identified, and fi ndings suggest a possible organizing fluid collection versus fluid-filled unopacified small bowel loo ps. A repeat examination with oral contrast may be of benefit for further evaluation of this portion of the abdomen. The area extends approximately 10 x 6 cm in AP and transverse dimension, and 10 cm in cephalocaudal dimension. CONCLUSION: 1. Ascites, body wall edema, and large right pleural effusion. 2. Questionable organizing fluid collection in the right lower quadrant inferior to the liver with a few tiny locules of air versus fluid-filled bowel loops in this region. A repeat examination after a dequate oral contrast administration would be helpful for further evaluation. Electronically signed by: Alexis Villalobos MD 07/13/2018 11:29 AM EDT
[2018-07-13] MEDS ORDERED: Diatrizoate Meglum/Diatrizoate Sod Liq 9 ML UDC ONE (12:40)
--- NOTE | 2018-07-13 14:45 | CT ---
EXAM DATE: 07/13/2018 2:38 PM EDT AGE/SEX: 53 years / Male INDICATIONS: Umbilical abdominal pain for three days. CLINICAL DATA: This is the patient's initial encounter. Patient reports that signs and symptoms have been present for 1 day and indicates a pain score of 7/10. MEDICAL/SURGICAL HISTORY: Congestive heart failure. None. RADIATION DOSE: 6.98 CTDI (mGy) COMPARISON: [facility] [place] ABDOMEN & PELVIS W CONTRAST, 07/13/2018. . TECHNIQUE: Multiple contiguous axial images were obtained through the abdomen. Images were obtained using multiple row detector helical technique. Using automated exposure control and adjustment of the mA and/or kV according to patient size, radiation dose was kept as low as reasonably achievable to o btain optimal diagnostic quality images. DICOM format image data is available electronically for rev iew and comparison. FINDINGS: There is a large right-sided pleural effusion identified. There is a small amount of ascites greatest around the liver. Spleen, pancreas, adrenals and gallbladder are unremarkable. There is contrast wit hin the bilateral intrarenal collecting systems from CT examination earlier today. There is contrast noted in the stomach and small bowel loops. There is a small amount of contrast within the descending colon which appears to demonstrate wall thickening corresponding to the area of hypodensity in the r ight mid to lower abdomen on the recent CT. There is also small amount of free fluid. There is contra st in the urinary bladder. CONCLUSION: 1. Bowel wall thickening is seen involving the descending colon with a small amount of adjacent free fluid accounting for the findings on the recent CT exam. This would be characteristic of colitis. 2. Right effusion. Electronically signed by: Alexis Villalobos MD 07/13/2018 2:44 PM EDT
--- NOTE | 2018-07-13 15:15 | P.HPFP ---
History of Present Illness Primary Care Physician: No Primary Care Physician <Keara Tilley - 07/14/18 11:28> No Primary Care Physician <Cass Harp - 07/13/18 15:15> History of Present Illness: Mr Hu is a 53-year-old male with past medical history of CHF here for chest, abdominal tightness as well as shortness of breath. Currently on heart transplant list in [place]. 2 days ago he noticed the tightness. He called his doctor and they told him to take 4 pills of the 20mg of Lasix from usual 2mg. Urinating well. 5 lb weight gain in 2 days. Feels tightness in lower abdominal quadrants. No N/V. Denies lower extremity edema but does feel as if his sneakers are tightening. Has had to increase pillow usage to 4 at night. Nonproductive cough. SOB walking from the parking lot. At his baseline he is able to ambulate a couple of blocks without difficulty. Also reports isolated incident of night sweats. 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 EtOH none Drugs- marijuana "once in a blue gonzalez" Lives at home with mother <Cass Harp - 07/13/18 16:05> - Diagnosis (1) CHF (congestive heart failure) (2) Colitis (3) Diabetes mellitus (4) Hypertension (5) Dyslipidemia (6) Abdominal pain (7) History of alcohol abuse (8) Nutrition, metabolism, and development symptoms <Keara Tilley - 07/14/18 11:28> (1) CHF (congestive heart failure) (2) Colitis (3) Diabetes mellitus (4) Hypertension (5) Dyslipidemia (6) Abdominal pain (7) History of alcohol abuse (8) Nutrition, metabolism, and development symptoms <Cass Harp - 07/13/18 16:54> Inpatient Certification: I certify that the inpatient services were ordered in accordance with Medicare regulations governing the order. This includes certification that hospital inpatient services are reasonable and necessary and in the case of services not specified as inpatient-only under 42 CFR 419.22(n), that they are appropriately provided as inpatient services in accordance to with the 2-midnight benchmark under 43 CFR 412.3(e) <Keara Tilley Enzo - 07/14/18 11:28> Review of Systems Constitutional: Reports night sweats, Reports weight gain, Denies chills, Denies fatigue <Cass Harp 07/13/18 16:01> Ears, Nose, Mouth, and Throat: Reports hoarseness, Reports nasal discharge < Cass Harp 07/13/18 16:05> Cardiovascular: Reports chest pain, Reports generalized swelling, Reports shortness of breath, Reports shortness of breath when lying down, Denies leg swelling <Cass Harp 07/13/18 16:01> Respiratory: Reports cough, Reports shortness of breath, Reports shortness of breath with activity <Cass Harp 07/13/18 16:01> Gastrointestinal: Reports abdominal pain, Denies black, tarry stools, Denies bright, red blood in stools, Denies change in bowel habits, Denies nausea, Denies vomiting <Cass Harp 07/13/18 16:01> Genitourinary: Reports urinary frequency, Denies blood in urine, Denies painful urination <Cass Harp 07/13/18 16:01> Musculoskeletal: Denies back pain, Denies body aches <Cass Harp 16:01> PMFSH - History History Provided By: Patient <Cass Harp 07/13/18 15:15> - Tobacco History Smoking Status: Unknown if ever smoked <Cass Harp 07/13/18 15:15> - Alcohol History How Often Do You Have a Drink Containing Alcohol: Unable to Obtain <Cass Harp 07/13/18 15:15> - Travel History Recent Travel in the [facility] Within the Last 8 Weeks: No <Cass Harp 15:15> Recent Travel Out of the Country Within the Last 8 Weeks: No <Cass Harp Tayla - 07/13/18 15:15> - Immunization History Tetanus Immunization: Unsure <Bj Harpmartin Bourne - 07/13/18 15:15> Medications and Allergies Allergies Allergy/AdvReac Type Severity Reaction Status Date / Time amoxicillin Allergy Mild Hives Verified 01/20/18 14:32 oxycodone Allergy Mild Hives Verified 01/20/18 14:32 <Keara Tilley - 07/14/18 11:28> Home Medications Medication Instructions Recorded Confirmed Type Aspir-81 81 mg PO DAILY 07/13/18 07/13/18 History furosemide [Lasix] 20 mg PO Q6HR 07/13/18 07/13/18 History insulin aspart U-100 [Novolog 15 unit SUB-Q BID 07/13/18 07/13/18 History Flexpen U-100 Insulin] <Keara Tilley - 07/14/18 11:28> Active Medications: Active Medications Hydrocodone Bitart/Acetaminophen (Kewadin 5/325) 1 tab PO Q4H PRN PRN Reason: pain 4-7 Hydrocodone Bitart/Acetaminophen (Kewadin 7.5/325) 1 tab PO Q4H PRN PRN Reason: pain 7-10 Last Admin: 07/14/18 08:34 Dose: 1 tab Al Hydroxide/Mg Hydroxide (Milk Of Magnesia Liq) 30 ml PO Q12H PRN PRN Reason: Mild Constipation Aspirin (Ecotrin) 81 mg PO DAILY [facility] Last Admin: 07/14/18 08:48 Dose: 81 mg Atorvastatin Calcium (Lipitor) 10 mg PO HS [facility] Last Admin: 07/13/18 21:24 Dose: 10 mg Dextrose (D50w Vial) 50 ml IV.PUSH UNSCH PRN PRN Reason: PER HYPOGLYCEMIA PROTOCOL Flumazenil (Romazecon Inj) 0.2 mg IV.PUSH Q1M PRN PRN Reason: OVERSEDATION Furosemide (Lasix Inj) 80 mg IV.PUSH BID SHAKIRA Glucagon (Glucagon Inj) 1 mg OTHER PRN PRN PRN Reason: for Hypoglycemia Protocol Haloperidol Lactate (Haldol Inj) 1 mg IV.PUSH Q15M PRN PRN Reason: for severe agitation Insulin Aspart (Novolog Insulin Correctional Sugar Inj) 0 unit SQ ACHS SHAKIRA; Protocol Last Admin: 07/14/18 07:52 Dose: Not Given Insulin Detemir (Levemir Inj) 10 unit SQ BID [facility] Lisinopril (Prinivil) 5 mg PO DAILY [facility] Last Admin: 07/14/18 08:35 Dose: 5 mg Lorazepam (Ativan) 1 mg PO Q4H PRN PRN Reason: for CIWA 8-10 Lorazepam (Ativan) 2 mg PO Q2H PRN PRN Reason: for CIWA 11-14 Lorazepam (Ativan Inj) 2 mg IV.PUSH Q2H PRN PRN Reason: for CIWA 11-14 Lorazepam (Ativan Inj) 2 mg IV.PUSH Q1H PRN PRN Reason: for CIWA 15-20 Lorazepam (Ativan Inj) 2 mg IV.PUSH Q15M PRN PRN Reason: for CIWA > 20 Lorazepam (Ativan Inj) 1 mg IV.PUSH Q4H PRN PRN Reason: for CIWA 8-10 Pantoprazole Sodium (Protonix) 40 mg PO DAILY [facility] Last Admin: 07/14/18 11:16 Dose: 40 mg Senna/Docusate Sodium (Mariam-Colace) 1 tab PO BID [facility] Last Admin: 07/14/18 08:35 Dose: 1 tab Sennosides (Senokot) 17.2 mg PO Q12H PRN PRN Reason: Moderate Constipation <Keara Tilley M - 07/14/18 11:28> Exam Vital signs: Vital Signs 07/13/18 11:49 07/13/18 20:00 07/14/18 00:00 Temperature 97.4 F L 97.7 F Pulse Rate 100 H 82 77 Respiratory Rate 18 16 14 Blood Pressure 145/89 H 118/64 114/58 L Pulse Oximetry 97 100 07/14/18 04:00 07/14/18 08:00 07/14/18 09:49 Temperature 97.6 F 97.2 F L Pulse Rate 76 75 Respiratory Rate 16 18 Blood Pressure 124/78 121/70 Pulse Oximetry 100 100 97 Intake & Output 07/13/18 07/14/18 07/14/18 18:59 06:59 18:59 Intake Total 200 / 200 Output Total 550 / 550 Balance -350 / -350 Weight 73.482 kg 80.6 kg Intake: Oral 200 / 200 Output: Urine 550 / 550 Other: Date of Last Bowel Movement 07/14/18 # Bowel Movements 1 Weight On Admission 80.9 kg <Keara Tilley Enzo - 07/14/18 11:28> Vital Signs 07/13/18 07:46 07/13/18 07:49 Temperature 97.5 F L Pulse Rate 92 H 90 Respiratory Rate 20 20 Blood Pressure 135/79 139/95 H Pulse Oximetry 100 99 Intake & Output 07/12/18 07/13/18 07/13/18 18:59 06:59 18:59 Weight 73.482 kg <Cass Harp - 07/13/18 15:15> Narrative: GENERAL: Well appearing male sitting up in bed, NAD. Does appear to have slight increased work of breathing. HEAD: Normocephalic. NECK: Supple, trachea midline. No lymphadenopathy. JVD present. CARDIOVASCULAR: Regular rate and rhythm without murmurs, gallops, or rubs. RESPIRATORY: No accessory muscle use. Rales bilaterally from bases to mid lung sow, R>L. Decreased lung sounds. GASTROINTESTINAL: Abdomen soft, nondistended. Moderately tender diffusely. No fluid wave present. MUSCULOSKELETAL: No cyanosis, or edema. Bilateral toe amputations extending to the metatarsal regions. <Cass Harp - 07/13/18 16:21> Results - Labs Result diagrams: 07/14/18 06:50 07/14/18 06:50 <Keara Tilley Enzo - 07/14/18 11:28> Abnormal lab results 07/13/18 07/13/18 07/14/18 Range/Units 17:18 18:34 06:50 RBC 4.44 L (4.50-5.90) mil/mm3 Hgb 9.8 L (13.0-17.0) gm/dL Hct 33.3 L (39.0-51.0) % MCV 75.1 L D (80.0-100.0) fL MCH 22.0 L (27.0-34.0) pg MCHC 29.3 L (32.0-36.0) % RDW 18.9 H (11.6-17.2) % [place] % (Auto) 9.3 H (0.0-8.0) % Eos % (Auto) 6.6 H (0.0-4.0) % Lymph # (Auto) 0.9 L (1.0-4.8) th/mm3 BUN (7-18) mg/dL Estimated GFR (>89) mL/min POC Glucose 158 H (68-110) mg/dl Random Glucose (74-106) mg/dL Calcium (8.5-10.1) mg/dL B-Natriuretic Peptide (0-100) pg/mL Urine Clarity Hazy H (Clear) Urine Bacteria Rare H (None) /hpf Urine Mucus Few H (Occasional) /lpf 07/14/18 07/14/18 Range/Units 06:50 06:50 RBC (4.50-5.90) mil/mm3 Hgb (13.0-17.0) gm/dL Hct (39.0-51.0) % MCV (80.0-100.0) fL MCH (27.0-34.0) pg MCHC (32.0-36.0) % RDW (11.6-17.2) % [place] % (Auto) (0.0-8.0) % Eos % (Auto) (0.0-4.0) % Lymph # (Auto) (1.0-4.8) th/mm3 BUN 20 H (7-18) mg/dL Estimated GFR 69 L (>89) mL/min POC Glucose (68-110) mg/dl Random Glucose 113 H (74-106) mg/dL Calcium 8.0 L (8.5-10.1) mg/dL B-Natriuretic Peptide 1456 H (0-100) pg/mL Urine Clarity (Clear) Urine Bacteria (None) /hpf Urine Mucus (Occasional) /lpf Short CBC 07/14/18 Range/Units 06:50 WBC 4.6 (4.0-11.0) th/mm3 Hgb 9.8 L (13.0-17.0) gm/dL Hct 33.3 L (39.0-51.0) % Plt Count 154 (150-450) th/mm3 BMP 07/14/18 06:50 Sodium 136 Potassium 3.8 Chloride 103 Carbon Dioxide 21.4 BUN 20 H Creatinine 1.11 Calcium 8.0 L Urine 07/13/18 Range/Units 18:34 Urine Color Yellow (Yellw/Straw) Urine Clarity Hazy H (Clear) Urine pH 7.0 (5.0-8.5) Ur Specific [place] 1.006 (1.002-1.035) Urine Protein Negative (Neg-Trace) mg/dL Urine Glucose (UA) Negative (Negative) mg/dL <Keara Tilley - 07/14/18 11:28> Abnormal lab results 07/13/18 07/13/18 07/13/18 Range/Units 08:31 08:31 08:31 RBC 4.19 L (4.50-5.90) mil/mm3 Hgb 9.7 L (13.0-17.0) gm/dL Hct 30.0 L (39.0-51.0) % MCV 71.6 L (80.0-100.0) fL MCH 23.1 L (27.0-34.0) pg RDW 18.6 H (11.6-17.2) % [place] % (Auto) 9.1 H (0.0-8.0) % PT 15.8 H (9.8-11.6) sec APTT 31.7 H (24.3-30.1) sec BUN 19 H (7-18) mg/dL Estimated GFR 68 L (>89) mL/min Random Glucose 110 H (74-106) mg/dL Total Bilirubin 1.3 H (0.2-1.0) mg/dL AST 53 H (15-37) U/L Alkaline Phosphatase 200 H (45-117) U/L CK-MB (CK-2) 5.0 H (0.5-3.6) ng/mL B-Natriuretic Peptide (0-100) pg/mL Total Protein 8.4 H (6.4-8.2) g/dL Albumin 2.7 L (3.4-5.0) g/dL 07/13/18 Range/Units 08:31 RBC (4.50-5.90) mil/mm3 Hgb (13.0-17.0) gm/dL Hct (39.0-51.0) % MCV (80.0-100.0) fL MCH (27.0-34.0) pg RDW (11.6-17.2) % [place] % (Auto) (0.0-8.0) % PT (9.8-11.6) sec APTT (24.3-30.1) sec BUN (7-18) mg/dL Estimated GFR (>89) mL/min Random Glucose (74-106) mg/dL Total Bilirubin (0.2-1.0) mg/dL AST (15-37) U/L Alkaline Phosphatase (45-117) U/L CK-MB (CK-2) (0.5-3.6) ng/mL B-Natriuretic Peptide 2362 H (0-100) pg/mL Total Protein (6.4-8.2) g/dL Albumin (3.4-5.0) g/dL Short CBC 07/13/18 Range/Units 08:31 WBC 5.3 (4.0-11.0) th/mm3 Hgb 9.7 L (13.0-17.0) gm/dL Hct 30.0 L (39.0-51.0) % Plt Count 178 (150-450) th/mm3 BMP 07/13/18 08:31 Sodium 137 Potassium 3.7 Chloride 102 Carbon Dioxide 22.6 BUN 19 H Creatinine 1.13 Calcium 8.5 Cardiac Enzymes 07/13/18 Range/Units 08:31 Total Creatine Kinase 151 (39-308) U/L CK-MB (CK-2) 5.0 H (0.5-3.6) ng/mL Troponin I 0.03 (0.02-0.05) ng/mL Liver Function 07/13/18 Range/Units 08:31 Total Bilirubin 1.3 H (0.2-1.0) mg/dL AST 53 H (15-37) U/L ALT 42 (12-78) U/L Alkaline Phosphatase 200 H (45-117) U/L Albumin 2.7 L (3.4-5.0) g/dL <Cass Harp - 07/13/18 15:15> - Imaging Impressions Abdomen/Pelvis CT 07/13/18 08:36 CONCLUSION: 1. Ascites, body wall edema, and large right pleural effusion. 2. Questionable organizing fluid collection in the right lower quadrant inferior to the liver with a few tiny locules of air versus fluid-filled bowel loops in this region. A repeat examination after adequate oral contrast administration would be helpful for further evaluation. Abdomen/Pelvis CT 07/13/18 11:35 CONCLUSION: 1. Bowel wall thickening is seen involving the descending colon with a small amount of adjacent free fluid accounting for the findings on the recent CT exam. This would be characteristic of colitis. 2. Right effusion. <Keara Tilley - 07/14/18 11:28> Impressions Chest X-Ray 07/13/18 08:05 CONCLUSION: Negative examination. Abdomen/Pelvis CT 07/13/18 08:36 CONCLUSION: 1. Ascites, body wall edema, and large right pleural effusion. 2. Questionable organizing fluid collection in the right lower quadrant inferior to the liver with a few tiny locules of air versus fluid-filled bowel loops in this region. A repeat examination after adequate oral contrast administration would be helpful for further evaluation. Abdomen/Pelvis CT 07/13/18 11:35 CONCLUSION: 1. Bowel wall thickening is seen involving the descending colon with a small amount of adjacent free fluid accounting for the findings on the recent CT exam. This would be characteristic of colitis. 2. Right effusion. <Cass Harp - 07/13/18 15:15> Caprini VTE Risk Assessment Caprini VTE Risk Assessment: No/Low Risk (score <= 1) <Cass Harp - 16:21> Caprini Risk Assessment Model: Point Value = 1 Point Value = 2 Point Value = 3 Point Value = 5 Age 41-60 Minor surgery BMI > 25 kg/m2 Swollen legs Varicose veins or History of unexplained or recurrent spontaneous Oral contraceptives or hormone replacement Sepsis (< 1 month) Serious lung disease, including pneumonia (< 1 month) Abnormal pulmonary function Acute myocardial infarction Congestive heart failure (< 1 month) History of inflammatory bowel disease Medical patient at bed rest Age 61-74 Arthroscopic surgery Major open surgery (> 45 min) Laparoscopic surgery (> 45 min) Malignancy Confined to bed (> 72 hours) Immobilizing plaster cast Central venous access Age >= 75 History of VTE Family history of VTE Factor V Leiden Prothrombin [id number] Lupus anticoagulant Anticardiolipin antibodies Elevated serum homocysteine Heparin-induced thrombocytopenia Other congenital or acquired thrombophilia Stroke (< 1 month) Elective arthroplasty Hip, pelvis, or leg fracture Acute spinal cord injury (< 1 month) <Keara Tilley - 07/14/18 11:28> Point Value = 1 Point Value = 2 Point Value = 3 Point Value = 5 Age 41-60 Minor surgery BMI > 25 kg/m2 Swollen legs Varicose veins or History of unexplained or recurrent spontaneous Oral contraceptives or hormone replacement Sepsis (< 1 month) Serious lung disease, including pneumonia (< 1 month) Abnormal pulmonary function Acute myocardial infarction Congestive heart failure (< 1 month) History of inflammatory bowel disease Medical patient at bed rest Age 61-74 Arthroscopic surgery Major open surgery (> 45 min) Laparoscopic surgery (> 45 min) Malignancy Confined to bed (> 72 hours) Immobilizing plaster cast Central venous access Age >= 75 History of VTE Family history of VTE Factor V Leiden Prothrombin [id number] Lupus anticoagulant Anticardiolipin antibodies Elevated serum homocysteine Heparin-induced thrombocytopenia Other congenital or acquired thrombophilia Stroke (< 1 month) Elective arthroplasty Hip, pelvis, or leg fracture Acute spinal cord injury (< 1 month) <Cass Harp - 07/13/18 15:15> Prophylaxis Regimen: Total Risk Factor Score Risk Level Prophylaxis Regimen 0-1 Low Early ambulation 2 Moderate Order ONE of the following: *Sequential Compression Device (SCD) *Heparin 5000 units SQ BID 3-4 Higher Order ONE of the following medications: *Heparin 5000 units SQ TID *Enoxaparin/Lovenox 40 mg SQ daily (WT < 150 kg, CrCl > 30 mL/min) *Enoxaparin/Lovenox 30 mg SQ daily (WT < 150 kg, CrCl > 10-29 mL/min) *Enoxaparin/Lovenox 30 mg SQ BID (WT < 150 kg, CrCl > 30 mL/min) AND/OR *Sequential Compression Device (SCD) 5 or more Highest Order ONE of the following medications: *Heparin 5000 units SQ TID (Preferred with Epidurals) *Enoxaparin/Lovenox 40 mg SQ daily (WT < 150 kg, CrCl > 30 mL/min) *Enoxaparin/Lovenox 30 mg SQ daily (WT < 150 kg, CrCl > 10-29 mL/min) *Enoxaparin/Lovenox 30 mg SQ BID (WT < 150 kg, CrCl > 30 mL/min) AND *Sequential Compression Device (SCD) <Keara Tilley - 07/14/18 11:28> Total Risk Factor Score Risk Level Prophylaxis Regimen 0-1 Low Early ambulation 2 Moderate Order ONE of the following: *Sequential Compression Device (SCD) *Heparin 5000 units SQ BID 3-4 Higher Order ONE of the following medications: *Heparin 5000 units SQ TID *Enoxaparin/Lovenox 40 mg SQ daily (WT < 150 kg, CrCl > 30 mL/min) *Enoxaparin/Lovenox 30 mg SQ daily (WT < 150 kg, CrCl > 10-29 mL/min) *Enoxaparin/Lovenox 30 mg SQ BID (WT < 150 kg, CrCl > 30 mL/min) AND/OR *Sequential Compression Device (SCD) 5 or more Highest Order ONE of the following medications: *Heparin 5000 units SQ TID (Preferred with Epidurals) *Enoxaparin/Lovenox 40 mg SQ daily (WT < 150 kg, CrCl > 30 mL/min) *Enoxaparin/Lovenox 30 mg SQ daily (WT < 150 kg, CrCl > 10-29 mL/min) *Enoxaparin/Lovenox 30 mg SQ BID (WT < 150 kg, CrCl > 30 mL/min) AND *Sequential Compression Device (SCD) <Cass Harp - 07/13/18 15:15> Assessment and Plan - Assessment (1) CHF (congestive heart failure) Code(s): I50.9 - Heart failure, unspecified Status: Acute (2) Colitis Code(s): K52.9 - Noninfective gastroenteritis and colitis, unspecified Status : Acute (3) Diabetes mellitus Code(s): E11.9 - Type 2 diabetes mellitus without complications Status: Acute (4) Hypertension Code(s): I10 - Essential (primary) hypertension Status: Acute (5) Dyslipidemia Code(s): E78.5 - Hyperlipidemia, unspecified Status: Acute (6) Abdominal pain Code(s): R10.9 - Unspecified abdominal pain Status: Acute (7) History of alcohol abuse Code(s): Z87.898 - Personal history of other specified conditions Status: Acute (8) Nutrition, metabolism, and development symptoms Code(s): R63.8 - Other symptoms and signs concerning food and fluid intake Status: Acute <Keara Tilley - 07/14/18 11:28> (1) CHF (congestive heart failure) Code(s): I50.9 - Heart failure, unspecified Status: Acute Plan: Most recent echocardiogram in January of this year showed EF of <20% and pulmonary artery pressure of 48 -Patient given one dose of 40mg in ED -40mg IV Lasix BID -Daily weights -Limit PO fluid intake to 1.5L daily -Monitor SOB -We will attempt to obtain Rx records from patient's pharmacy to resume heart failure medications. If unable to obtain records will consider starting patient on lisinopril 5 mg once daily, hold beta-archie for now as patient is currently fluid overloaded, spironolactone 12.5 mg once daily -Avoid QT prolonging agents (2) Colitis Code(s): K52.9 - Noninfective gastroenteritis and colitis, unspecified Status : Acute Plan: Patient is relatively asymptomatic with only moderate abdominal pain -We will hold off on antibiotic treatment at this time, if requiring antibiotics in the future will avoid QT prolonging agents -We will continue to monitor (3) Diabetes mellitus Code(s): E11.9 - Type 2 diabetes mellitus without complications Status: Acute Plan: Patient is on home Lantus of 18 units twice daily -Lantus 10 units twice daily we will adjust up as necessary -Low-dose sliding scale sliding scale -Bedside glucose checks (4) Hypertension Code(s): I10 - Essential (primary) hypertension Status: Acute Plan: Will contact patient's pharmacy and attempt to determine what his home RX's are (5) Dyslipidemia Code(s): E78.5 - Hyperlipidemia, unspecified Status: Acute Plan: We will contact patient's pharmacy to resume home statin medication (6) Abdominal pain Code(s): R10.9 - Unspecified abdominal pain Status: Acute Plan: CT showed small amount of ascites and bowel wall thickening of the descending colon with small amount of adjacent free fluid -Hemoccult ordered -Continue to monitor I and O's (7) History of alcohol abuse Code(s): Z87.898 - Personal history of other specified conditions Status: Acute Plan: Patient denies current alcohol use. Review of records reveals that he was admitted prior for alcohol withdrawal. -[facility] protocol (8) Nutrition, metabolism, and development symptoms Code(s): R63.8 - Other symptoms and signs concerning food and fluid intake Status: Acute Plan: Diet: Cardiac and diabetic diet Fluids: Limit p.o. intake to 1.5 L per day DVT prophylaxis: Will use SCDs only pending Hemoccult results <Cass Harp - 07/13/18 16:54> - Assessment and Plan Discussed Condition With: Dr Noe <Cass Harp - 07/13/18 16:21> - Attending Attestation The exam, history, and the medical decision-making described in the above note were completed with the assistance of the resident physician. I reviewed and agree with the findings presented. I attest that I had a [id number] encounter with the patient on the same day, and personally performed and documented my assessment and findings in the medical record. Saw him at the time of admission. Was with the residents when he is being admitted in the emergency department. <Keara Tilley - 07/14/18 11:28> <Cass Harp - Last Filed: 07/13/18 16:54> (1) CHF (congestive heart failure) Qualifiers: Heart failure type: combined systolic and diastolic Heart failure chronicity : chronic Qualified Code(s): I50.42 - Chronic combined systolic (congestive) and diastolic (congestive) heart failure (3) Diabetes mellitus Qualifiers: Diabetes mellitus type: type 2 Diabetes mellitus long term care social worker insulin use: with group home use Diabetes mellitus complication status: with unspecified complications Qualified Code(s): E11.8 - Type 2 diabetes mellitus with unspecified complications; Z79.4 - shelter (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 <Keara Tilley - Last Filed: 07/14/18 11:28> (1) CHF (congestive heart failure) Qualifiers: Heart failure type: combined systolic and diastolic Heart failure chronicity : chronic Qualified Code(s): I50.42 - Chronic combined systolic (congestive) and diastolic (congestive) heart failure (3) Diabetes mellitus Qualifiers: Diabetes mellitus type: type 2 Diabetes mellitus long term care social worker insulin use: with group home use Diabetes mellitus complication status: with unspecified complications Qualified Code(s): E11.8 - Type 2 diabetes mellitus with unspecified complications; Z79.4 - shelter (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 <Cass Harp - Last Filed: 07/13/18 16:54> (1) CHF (congestive heart failure) Qualifiers: Heart failure type: combined systolic and diastolic Heart failure chronicity : chronic Qualified Code(s): I50.42 - Chronic combined systolic (congestive) and diastolic (congestive) heart failure (3) Diabetes mellitus Qualifiers: Diabetes mellitus type: type 2 Diabetes mellitus long term care social worker insulin use: with group home use Diabetes mellitus complication status: with unspecified complications Qualified Code(s): E11.8 - Type 2 diabetes mellitus with unspecified complications; Z79.4 - terminal superintendent (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 <Keara Tilley - Last Filed: 07/14/18 11:28> (1) CHF (congestive heart failure) Qualifiers: Heart failure type: combined systolic and diastolic Heart failure chronicity : chronic Qualified Code(s): I50.42 - Chronic combined systolic (congestive) and diastolic (congestive) heart failure (3) Diabetes mellitus Qualifiers: Diabetes mellitus type: type 2 Diabetes mellitus group home insulin use: with long term care social worker use Diabetes mellitus complication status: with unspecified complications Qualified Code(s): E11.8 - Type 2 diabetes mellitus with unspecified complications; Z79.4 - shelter (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
--- NOTE | 2018-07-13 16:01 | ECG ---
Date Performed: 07/13/2018 Time Performed: 08:42:21 PTAGE: 53 years EKG: Sinus rhythm WITH OCCASIONAL ECTOPIC BEATS, WHICH ARE MOST LIKELY PVCS VERSUS ABERRENTLY CONDUCTED PREMATURE SUPR AVENTRICULAR BEATS INTRAVENTRICULAR CONDUCTION DISTURBANCE LEFT AXIS DEVIATION NONSPECIFIC T-WAVE CONNOR NGE ABNORMAL ECG Compared to PREVIOUS TRACING , the ectopy is new, axis is now leftward, previous axis rightward. PREV IOUS TRACIN02/27/2018 05.50 DOCTOR: Erik Epstein Interpretating Date/Time 07/13/2018 16:01:26
[2018-07-13] MEDS ORDERED: Haloperidol Inj 5 MG/ML Ampul IV.PUSH PRN (16:17)
[2018-07-13] MEDS ORDERED: LORazepam 1 MG Tablet PO PRN (16:17)
[2018-07-13] MEDS ORDERED: Dextrose 50% in Water 50 ML Vial IV.PUSH PRN (16:37)
[2018-07-13] MEDS: Insulin NovoLOG Aspart Correctional Sugar Inj SQ SCH ×2 (17:20→21:25)
[2018-07-13 18:49] LABS: Bacteria,Urine Rare /hpf; Bilirubin,Urine Negative (Negative); Clarity,Urine Hazy (Clear); Color,Urine Yellow (Yellw/Straw); Glucose,Urine (UA) Negative (Negative); Leukocyte Esterase,Urine Negative (Negative); Mucus,Urine Few /lpf (Occasional); Nitrite,Urine Negative (Negative); Specific Gravity,Urine 1.006 (1.002-1.035); Squamous Epithelial Cell,Urine 3 /hpf (0-5)
[2018-07-13] MEDS ORDERED: Lisinopril 5 MG Tablet PO ONE (20:11)
[2018-07-13] MEDS: Insulin Glargine Inj 1,000 UNITS/10 ML Vial SQ SCH (21:26)
[2018-07-13] MEDS: Senna/Docusate Sodium 8.6/50 MG Tablet PO SCH (21:26)
[2018-07-14 07:25] LABS: Carbon Dioxide 21.4 meq/L (21.0-32.0); Potassium 3.8 meq/L (3.5-5.1)
[2018-07-14] MEDS: Insulin NovoLOG Aspart Correctional Sugar Inj SQ SCH ×4 (07:52→21:25)
[2018-07-14 08:03] LABS: Eos # (Auto) 0.3 th/mm3 (0.0-0.4); Eos % (Auto) 6.6 % (0.0-4.0); Hematocrit 33.3 % (39.0-51.0); Hemoglobin 9.8 gm/dL (13.0-17.0); Lymph # (Auto) 0.9 th/mm3 (1.0-4.8); Lymph % (Auto) 20.8 % (9.0-44.0); Mean Corpuscular HGB Conc 29.3 % (32.0-36.0); Mean Corpuscular Volume 75.1 fL (80.0-100.0); Mono # (Auto) 0.4 th/mm3 (0.0-0.9); Mono % (Auto) 9.3 % (0.0-8.0); Neut # (Auto) 2.8 th/mm3 (1.8-7.7); Neut % (Auto) 62.3 % (16.0-70.0); Platelet Count 154 th/mm3 (150-450); Red Blood Count 4.44 mil/mm3 (4.50-5.90); Red Cell Distribution Width 18.9 % (11.6-17.2); White Blood Count 4.6 th/mm3 (4.0-11.0)
[2018-07-14] MEDS: Insulin Glargine Inj 1,000 UNITS/10 ML Vial SQ SCH (08:31)
[2018-07-14] MEDS: Senna/Docusate Sodium 8.6/50 MG Tablet PO SCH ×2 (08:35→21:09)
[2018-07-14] MEDS: Lisinopril 5 MG Tablet PO SCH (08:35)
[2018-07-14] MEDS ORDERED: Non-Formulary Drug (Aspir-81 81 MG) PO SCH (09:00)
--- NOTE | 2018-07-14 09:31 | P.HPFP ---
History of Present Illness Primary Care Physician: No Primary Care Physician History of Present Illness: Mr Hu is a 53-year-old male with past medical history of CHF here for chest, abdominal tightness as well as shortness of breath. Currently on heart transplant list in [place]. 2 days ago he noticed the tightness. He called his doctor and they told him to take 4 pills of the 20mg of Lasix from usual 20mg. Urinating well but only taking his Lasix once a day. 5 lb weight gain in 2 days. Feels tightness in lower abdominal quadrants. No N/V. Denies lower extremity edema but does feel as if his sneakers are tightening. Has had to increase pillow usage to 4 at night. Nonproductive cough. SOB walking from the parking lot. At his baseline he is able to ambulate a couple of blocks without difficulty. Also reports isolated incident of night sweats. He was given 40 mg of Lasix IV in the emergency department. He stated he did have some urine output but does not feel like he diuresed that well. He still feels very short of breath he is still is on the 4 pillows he still cannot walk very well without increased shortness of breath. He also was questioned more about his abdominal problems. He has been a diabetic for a long time and he stated he has had stomach problems for a while where he is able to drink fluids but solids seem to make him extra full. He does have some burning in his esophagus when he swallows. He does not have diarrhea or other problems today. 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 EtOH none Drugs- marijuana "once in a blue gonzalez" Lives at home with mother - Diagnosis (1) CHF (congestive heart failure) (2) Colitis (3) Diabetes mellitus (4) Hypertension (5) Dyslipidemia (6) Abdominal pain (7) History of alcohol abuse (8) Nutrition, metabolism, and development symptoms Inpatient Certification: I certify that the inpatient services were ordered in accordance with Medicare regulations governing the order. This includes certification that hospital inpatient services are reasonable and necessary and in the case of services not specified as inpatient-only under 42 CFR 419.22(n), that they are appropriately provided as inpatient services in accordance to with the 2-midnight benchmark under 43 CFR 412.3(e) Estimated Total Length of Stay (Days): 3 Plans for Post Hospital Care: Home Review of Systems other (See history from yesterday) PMFSH - History History Provided By: Patient - Tobacco History Second Hand Smoke Exposure: No Tobacco Use In Past 30 Days: Yes Smoking Status: Current some day smoker Tobacco Type: Cigarettes - Alcohol History How Often Do You Have a Drink Containing Alcohol: Never - Substance Use History Substance History: Active Abuse - Substance Use Type Marijuana Status: Active Route Used: Inhalation Reason for Use: Calm Down - Travel History Recent Travel in the [place] Within the Last 8 Weeks: No Recent Travel Out of the Country Within the Last 8 Weeks: No - Immunization History Tetanus Immunization: Unsure Medications and Allergies Active Medications: Active Medications Hydrocodone Bitart/Acetaminophen ([place] 5/325) 1 tab PO Q4H PRN PRN Reason: pain 4-7 Hydrocodone Bitart/Acetaminophen ([place] 7.5/325) 1 tab PO Q4H PRN PRN Reason: pain 7-10 Last Admin: 07/14/18 08:34 Dose: 1 tab Al Hydroxide/Mg Hydroxide (Milk Of Magnree Liq) 30 ml PO Q12H PRN PRN Reason: Mild Constipation Aspirin (Ecotrin) 81 mg PO DAILY [facility] Last Admin: 07/14/18 08:48 Dose: 81 mg Atorvastatin Calcium (Lipitor) 10 mg PO HS [facility] Last Admin: 07/13/18 21:24 Dose: 10 mg Dextrose (D50w Vial) 50 ml IV.PUSH UNSCH PRN PRN Reason: PER HYPOGLYCEMIA PROTOCOL Flumazenil (Romazecon Inj) 0.2 mg IV.PUSH Q1M PRN PRN Reason: OVERSEDATION Furosemide (Lasix Inj) 40 mg IV.PUSH BID@0900,1800 [facility] Last Admin: 07/14/18 08:35 Dose: 40 mg Glucagon (Glucagon Inj) 1 mg OTHER PRN PRN PRN Reason: for Hypoglycemia Protocol Haloperidol Lactate (Haldol Inj) 1 mg IV.PUSH Q15M PRN PRN Reason: for severe agitation Insulin Aspart (Novolog Insulin Correctional Sugar Inj) 0 unit SQ [facility]; Protocol Last Admin: 07/14/18 07:52 Dose: Not Given Insulin Detemir (Levemir Inj) 10 unit SQ BID [facility] Lisinopril (Prinivil) 5 mg PO DAILY [facility] Last Admin: 07/14/18 08:35 Dose: 5 mg Lorazepam (Ativan) 1 mg PO Q4H PRN PRN Reason: for CIWA 8-10 Lorazepam (Ativan) 2 mg PO Q2H PRN PRN Reason: for CIWA 11-14 Lorazepam (Ativan Inj) 2 mg IV.PUSH Q2H PRN PRN Reason: for CIWA 11-14 Lorazepam (Ativan Inj) 2 mg IV.PUSH Q1H PRN PRN Reason: for CIWA 15-20 Lorazepam (Ativan Inj) 2 mg IV.PUSH Q15M PRN PRN Reason: for CIWA > 20 Lorazepam (Ativan Inj) 1 mg IV.PUSH Q4H PRN PRN Reason: for CIWA 8-10 Senna/Docusate Sodium (Mariam-Colace) 1 tab PO BID [facility] Last Admin: 07/14/18 08:35 Dose: 1 tab Sennosides (Senokot) 17.2 mg PO Q12H PRN PRN Reason: Moderate Constipation Allergies Allergy/AdvReac Type Severity Reaction Status Date / Time amoxicillin Allergy Mild Hives Verified 01/20/18 14:32 oxycodone Allergy Mild Hives Verified 01/20/18 14:32 Home Medications Medication Instructions Recorded Confirmed Type Aspir-81 81 mg PO DAILY 07/13/18 07/13/18 History furosemide [Lasix] 20 mg PO Q6HR 07/13/18 07/13/18 History insulin aspart U-100 [Novolog 15 unit SUB-Q BID 07/13/18 07/13/18 History Flexpen U-100 Insulin] Exam Vital signs: Vital Signs 07/13/18 11:49 07/13/18 20:00 07/14/18 00:00 Temperature 97.4 F L 97.7 F Pulse Rate 100 H 82 77 Respiratory Rate 18 16 14 Blood Pressure 145/89 H 118/64 114/58 L Pulse Oximetry 97 100 07/14/18 04:00 07/14/18 08:00 Temperature 97.6 F 97.2 F L Pulse Rate 76 75 Respiratory Rate 16 18 Blood Pressure 124/78 121/70 Pulse Oximetry 100 100 Intake & Output 07/13/18 07/14/18 07/14/18 18:59 06:59 18:59 Intake Total 200 / 200 Output Total 550 / 550 Balance -350 / -350 Weight 73.482 kg 80.6 kg Intake: Oral 200 / 200 Output: Urine 550 / 550 Other: Date of Last Bowel Movement 07/14/18 # Bowel Movements 1 Weight On Admission 80.9 kg Narrative: GENERAL: Alert and oriented and conversant. SKIN: Warm and dry. HEAD: Atraumatic. Normocephalic. EYES: Pupils equal and round. No scleral icterus. No injection or drainage. ENT: No nasal bleeding or discharge. Mucous membranes pink and moist. Some JVD NECK: Trachea midline. No JVD. CARDIOVASCULAR: Regular rate and rhythm. RESPIRATORY: No accessory muscle use. Bilateral rales approximately half the way up his lung sow. Breath sounds equal bilaterally. GASTROINTESTINAL: Abdomen soft, non-tender, nondistended. Hepatic and splenic margins not palpable. MUSCULOSKELETAL: Extremities without clubbing, cyanosis, or edema. Both feet have their toes missing. His feet had some edema bilaterally. NEUROLOGICAL: Awake and alert. No obvious cranial nerve deficits. Motor grossly within normal limits. Five out of 5 muscle strength in the arms and legs. Normal speech. PSYCHIATRIC: Appropriate mood and affect; insight and judgment normal. Results - Labs Result diagrams: 07/14/18 06:50 07/14/18 06:50 Abnormal lab results 07/13/18 07/13/18 07/13/18 Range/Units 08:31 08:31 08:31 RBC 4.19 L (4.50-5.90) mil/mm3 Hgb 9.7 L (13.0-17.0) gm/dL Hct 30.0 L (39.0-51.0) % MCV 71.6 L (80.0-100.0) fL MCH 23.1 L (27.0-34.0) pg MCHC (32.0-36.0) % RDW 18.6 H (11.6-17.2) % [place] % (Auto) 9.1 H (0.0-8.0) % Eos % (Auto) (0.0-4.0) % Lymph # (Auto) (1.0-4.8) th/mm3 PT 15.8 H (9.8-11.6) sec APTT 31.7 H (24.3-30.1) sec BUN 19 H (7-18) mg/dL Estimated GFR 68 L (>89) mL/min POC Glucose (68-110) mg/dl Random Glucose 110 H (74-106) mg/dL Calcium (8.5-10.1) mg/dL Total Bilirubin 1.3 H (0.2-1.0) mg/dL AST 53 H (15-37) U/L Alkaline Phosphatase 200 H (45-117) U/L CK-MB (CK-2) 5.0 H (0.5-3.6) ng/mL B-Natriuretic Peptide (0-100) pg/mL Total Protein 8.4 H (6.4-8.2) g/dL Albumin 2.7 L (3.4-5.0) g/dL Urine Clarity (Clear) Urine Bacteria (None) /hpf Urine Mucus (Occasional) /lpf 07/13/18 07/13/18 07/13/18 Range/Units 08:31 17:18 18:34 RBC (4.50-5.90) mil/mm3 Hgb (13.0-17.0) gm/dL Hct (39.0-51.0) % MCV (80.0-100.0) fL MCH (27.0-34.0) pg MCHC (32.0-36.0) % RDW (11.6-17.2) % [place] % (Auto) (0.0-8.0) % Eos % (Auto) (0.0-4.0) % Lymph # (Auto) (1.0-4.8) th/mm3 PT (9.8-11.6) sec APTT (24.3-30.1) sec BUN (7-18) mg/dL Estimated GFR (>89) mL/min POC Glucose 158 H (68-110) mg/dl Random Glucose (74-106) mg/dL Calcium (8.5-10.1) mg/dL Total Bilirubin (0.2-1.0) mg/dL AST (15-37) U/L Alkaline Phosphatase (45-117) U/L CK-MB (CK-2) (0.5-3.6) ng/mL B-Natriuretic Peptide 2362 H (0-100) pg/mL Total Protein (6.4-8.2) g/dL Albumin (3.4-5.0) g/dL Urine Clarity Hazy H (Clear) Urine Bacteria Rare H (None) /hpf Urine Mucus Few H (Occasional) /lpf 07/14/18 07/14/18 07/14/18 Range/Units 06:50 06:50 06:50 RBC 4.44 L (4.50-5.90) mil/mm3 Hgb 9.8 L (13.0-17.0) gm/dL Hct 33.3 L (39.0-51.0) % MCV 75.1 L D (80.0-100.0) fL MCH 22.0 L (27.0-34.0) pg MCHC 29.3 L (32.0-36.0) % RDW 18.9 H (11.6-17.2) % [place] % (Auto) 9.3 H (0.0-8.0) % Eos % (Auto) 6.6 H (0.0-4.0) % Lymph # (Auto) 0.9 L (1.0-4.8) th/mm3 PT (9.8-11.6) sec APTT (24.3-30.1) sec BUN 20 H (7-18) mg/dL Estimated GFR 69 L (>89) mL/min POC Glucose (68-110) mg/dl Random Glucose 113 H (74-106) mg/dL Calcium 8.0 L (8.5-10.1) mg/dL Total Bilirubin (0.2-1.0) mg/dL AST (15-37) U/L Alkaline Phosphatase (45-117) U/L CK-MB (CK-2) (0.5-3.6) ng/mL B-Natriuretic Peptide 1456 H (0-100) pg/mL Total Protein (6.4-8.2) g/dL Albumin (3.4-5.0) g/dL Urine Clarity (Clear) Urine Bacteria (None) /hpf Urine Mucus (Occasional) /lpf Short CBC 07/13/18 07/14/18 Range/Units 08:31 06:50 WBC 5.3 4.6 (4.0-11.0) th/mm3 Hgb 9.7 L 9.8 L (13.0-17.0) gm/dL Hct 30.0 L 33.3 L (39.0-51.0) % Plt Count 178 154 (150-450) th/mm3 BMP 07/13/18 07/14/18 08:31 06:50 Sodium 137 136 Potassium 3.7 3.8 Chloride 102 103 Carbon Dioxide 22.6 21.4 BUN 19 H 20 H Creatinine 1.13 1.11 Calcium 8.5 8.0 L Cardiac Enzymes 07/13/18 Range/Units 08:31 Total Creatine Kinase 151 (39-308) U/L CK-MB (CK-2) 5.0 H (0.5-3.6) ng/mL Troponin I 0.03 (0.02-0.05) ng/mL Liver Function 07/13/18 Range/Units 08:31 Total Bilirubin 1.3 H (0.2-1.0) mg/dL AST 53 H (15-37) U/L ALT 42 (12-78) U/L Alkaline Phosphatase 200 H (45-117) U/L Albumin 2.7 L (3.4-5.0) g/dL Urine 07/13/18 Range/Units 18:34 Urine Color Yellow (Yellw/Straw) Urine Clarity Hazy H (Clear) Urine pH 7.0 (5.0-8.5) Ur Specific [place] 1.006 (1.002-1.035) Urine Protein Negative (Neg-Trace) mg/dL Urine Glucose (UA) Negative (Negative) mg/dL - Imaging Impressions Abdomen/Pelvis CT 07/13/18 08:36 CONCLUSION: 1. Ascites, body wall edema, and large right pleural effusion. 2. Questionable organizing fluid collection in the right lower quadrant inferior to the liver with a few tiny locules of air versus fluid-filled bowel loops in this region. A repeat examination after adequate oral contrast administration would be helpful for further evaluation. Abdomen/Pelvis CT 07/13/18 11:35 CONCLUSION: 1. Bowel wall thickening is seen involving the descending colon with a small amount of adjacent free fluid accounting for the findings on the recent CT exam. This would be characteristic of colitis. 2. Right effusion. Caprini VTE Risk Assessment Caprini VTE Risk Assessment: No/Low Risk (score <= 1) Caprini Risk Assessment Model: Point Value = 1 Point Value = 2 Point Value = 3 Point Value = 5 Age 41-60 Minor surgery BMI > 25 kg/m2 Swollen legs Varicose veins or History of unexplained or recurrent spontaneous Oral contraceptives or hormone replacement Sepsis (< 1 month) Serious lung disease, including pneumonia (< 1 month) Abnormal pulmonary function Acute myocardial infarction Congestive heart failure (< 1 month) History of inflammatory bowel disease Medical patient at bed rest Age 61-74 Arthroscopic surgery Major open surgery (> 45 min) Laparoscopic surgery (> 45 min) Malignancy Confined to bed (> 72 hours) Immobilizing plaster cast Central venous access Age >= 75 History of VTE Family history of VTE Factor V Leiden Prothrombin [id number] Lupus anticoagulant Anticardiolipin antibodies Elevated serum homocysteine Heparin-induced thrombocytopenia Other congenital or acquired thrombophilia Stroke (< 1 month) Elective arthroplasty Hip, pelvis, or leg fracture Acute spinal cord injury (< 1 month) Prophylaxis Regimen: Total Risk Factor Score Risk Level Prophylaxis Regimen 0-1 Low Early ambulation 2 Moderate Order ONE of the following: *Sequential Compression Device (SCD) *Heparin 5000 units SQ BID 3-4 Higher Order ONE of the following medications: *Heparin 5000 units SQ TID *Enoxaparin/Lovenox 40 mg SQ daily (WT < 150 kg, CrCl > 30 mL/min) *Enoxaparin/Lovenox 30 mg SQ daily (WT < 150 kg, CrCl > 10-29 mL/min) *Enoxaparin/Lovenox 30 mg SQ BID (WT < 150 kg, CrCl > 30 mL/min) AND/OR *Sequential Compression Device (SCD) 5 or more Highest Order ONE of the following medications: *Heparin 5000 units SQ TID (Preferred with Epidurals) *Enoxaparin/Lovenox 40 mg SQ daily (WT < 150 kg, CrCl > 30 mL/min) *Enoxaparin/Lovenox 30 mg SQ daily (WT < 150 kg, CrCl > 10-29 mL/min) *Enoxaparin/Lovenox 30 mg SQ BID (WT < 150 kg, CrCl > 30 mL/min) AND *Sequential Compression Device (SCD) Assessment and Plan - Assessment (1) CHF (congestive heart failure) Code(s): I50.9 - Heart failure, unspecified Status: Acute Plan: Most recent echocardiogram in January of this year showed EF of <20% and pulmonary artery pressure of 48 -Patient given one dose of 40mg IV in ED -40mg IV Lasix BID was started on this however the patient reports he is not diuresing enough so will increase to 80 mg IV twice daily -Daily weights -Limit PO fluid intake to 1.5L daily -Monitor SOB -We will attempt to obtain Rx records from patient's pharmacy to resume heart failure medications. If unable to obtain records will consider starting patient on lisinopril 5 mg once daily, hold beta-archie for now as patient is currently fluid overloaded, spironolactone 12.5 mg once daily. His brother has a list of his medications in the car and he was advised to call his brother have him take a photo of the list bring the list in order however he wants to convey the information on the list since he needs to be started back on his regular medications particularly for his heart failure. -Avoid QT prolonging agents (2) Colitis Code(s): K52.9 - Noninfective gastroenteritis and colitis, unspecified Status : Acute Plan: Patient is relatively asymptomatic with only moderate abdominal pain -We will hold off on antibiotic treatment at this time, if requiring antibiotics in the future will avoid QT prolonging agents -We will continue to monitor -He may very well have gastroparesis based on his long history of diabetes as well as his description of some of his symptoms. The normal treatment for gastroparesis even if we did a swallowing study or gastric emptying study on him would be Reglan or erythromycin both of which add to QT prolongation and would not be indicated in this patient. However we can try just to see if it helps him adding some Glucerna to his diet as if you do have gastroparesis liquids tend to get in more easily than solids and hopefully this will help his nutrition we can also since today is Labor Day consults dietary because we can hopefully give him some additional advice about what he can try in his diet. He may have some acid reflux or other problems and we will give him a acid archie today. He is still short of breath and is not able to have any sort of tests or studies like a endoscopy or other things will hold off on consulting GI. Depending on how he does can consider a consult but need to get him better with his heart failure since it would not be good to sedate him at this time. (3) Diabetes mellitus Code(s): E11.9 - Type 2 diabetes mellitus without complications Status: Acute Plan: Patient is on home Lantus of 18 units twice daily -Lantus 10 units twice daily we will adjust up as necessary -Low-dose sliding scale sliding scale -Bedside glucose checks (4) Hypertension Code(s): I10 - Essential (primary) hypertension Status: Acute Plan: Will contact patient's pharmacy and attempt to determine what his home RX's are. We will try to get his medications from his brother as the patient states there is a list of his medicines in his car. His brother has access to the car. (5) Dyslipidemia Code(s): E78.5 - Hyperlipidemia, unspecified Status: Acute Plan: We will contact patient's pharmacy to resume home statin medication (6) Abdominal pain Code(s): R10.9 - Unspecified abdominal pain Status: Acute Plan: CT showed small amount of ascites and bowel wall thickening of the descending colon with small amount of adjacent free fluid -Hemoccult ordered -Continue to monitor I and O's He should not be getting any sort of colonoscopy or other things at this time based on his shortness of breath and inability right now to safely be sedated. We need to get his heart failure better first before we can consider further workup. (7) History of alcohol abuse Code(s): Z87.898 - Personal history of other specified conditions Status: Acute Plan: Patient denies current alcohol use. Review of records reveals that he was admitted prior for alcohol withdrawal. -[facility] protocol (8) Nutrition, metabolism, and development symptoms Code(s): R63.8 - Other symptoms and signs concerning food and fluid intake Status: Acute Plan: Diet: Cardiac and diabetic diet Fluids: Limit p.o. intake to 1.5 L per day DVT prophylaxis: Will use SCDs only pending Hemoccult results We will add Glucerna to his diet based on possibility of gastroparesis H&P: Quality - VTE Deep Vein Thrombosis/Pulmonary Embolism Present on Admission: No (1) CHF (congestive heart failure) Qualifiers: Heart failure type: combined systolic and diastolic Heart failure chronicity : chronic Qualified Code(s): I50.42 - Chronic combined systolic (congestive) and diastolic (congestive) heart failure (3) Diabetes mellitus Qualifiers: Diabetes mellitus type: type 2 Diabetes mellitus halfway insulin use: with halfway use Diabetes mellitus complication status: with circulatory complication Diabetes mellitus complication detail: with peripheral angiopathy without gangrene Qualified Code(s): E11.51 - Type 2 diabetes mellitus with diabetic peripheral angiopathy without gangrene; Z79.4 - watermelon inspector (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
[2018-07-14] MEDS: Morphine Inj 4 MG/ML Vial IV.PUSH PRN ×3 (12:03→23:07)
[2018-07-14] MEDS: Insulin Detemir Inj 1,000 UNIT/10 ML Vial SQ SCH (21:27)
[2018-07-15] MEDS: Morphine Inj 4 MG/ML Vial IV.PUSH PRN ×3 (03:12→21:17)
[2018-07-15 07:36] LABS: Calcium 7.9 mg/dL (8.5-10.1); Carbon Dioxide 19.8 meq/L (21.0-32.0); Magnesium 1.6 mg/dL (1.5-2.5); Potassium 3.8 meq/L (3.5-5.1)
[2018-07-15 08:41] LABS: Hematocrit 34.3 % (39.0-51.0); Hemoglobin 10.4 gm/dL (13.0-17.0); Mean Corpuscular Volume 72.6 fL (80.0-100.0); Mean Platelet Volume 8.7 fL (7.0-11.0); Platelet Count 178 th/mm3 (150-450); Red Blood Count 4.73 mil/mm3 (4.50-5.90); White Blood Count 4.8 th/mm3 (4.0-11.0)
[2018-07-15 08:42] LABS: Mean Corpuscular HGB Conc 30.3 % (32.0-36.0)
[2018-07-15] MEDS: Lisinopril 5 MG Tablet PO SCH (08:56)
[2018-07-15] MEDS: Senna/Docusate Sodium 8.6/50 MG Tablet PO SCH ×2 (08:57→21:18)
[2018-07-15] MEDS: Insulin NovoLOG Aspart Correctional Sugar Inj SQ SCH ×4 (08:57→21:17)
[2018-07-15] MEDS: Insulin Detemir Inj 1,000 UNIT/10 ML Vial SQ SCH ×2 (08:58→21:16)
--- NOTE | 2018-07-15 09:11 | P.PNFP ---
Subjective Interval history: Mr Hu was seen on rounds this am walking the halls. He does report improved breathing feels as if he can walk further without getting shortness of breath. He does still require extra pillows to sleep. He urinated well yesterday. He reports worsening abdominal pain describing as burning from the right side of his umbilicus down to lower right quadrant. He feels as if things are getting stuck when he swallows as well, was that this is been a chronic issue and has been going on for multiple weeks. He has not had a bowel movement since Saturday but does not feel that he is constipated. He does report an isolated incidence of diarrhea on Saturday. He states that [place] does not help with the pain and only the morphine has alleviated his pain. He does state that he has a history of gastric ulcers associated with NSAID use. <Cass Harp E - 07/15/18 10:28> Results - Labs Result diagrams: 07/15/18 08:24 07/15/18 05:38 <Keara Tilley - 07/15/18 11:23> Abnormal lab results 07/14/18 07/14/18 07/15/18 Range/Units 11:35 17:22 05:38 Hgb (13.0-17.0) gm/dL Hct (39.0-51.0) % MCV (80.0-100.0) fL MCH (27.0-34.0) pg MCHC (32.0-36.0) % RDW (11.6-17.2) % Sodium 134 L (136-145) meq/L Carbon Dioxide 19.8 L (21.0-32.0) meq/L BUN 19 H (7-18) mg/dL Estimated GFR 76 L (>89) mL/min POC Glucose 140 H (68-110) mg/dl Calcium 7.9 L (8.5-10.1) mg/dL Lipase 68 L (73-393) U/L 07/15/18 Range/Units 08:24 Hgb 10.4 L (13.0-17.0) gm/dL Hct 34.3 L (39.0-51.0) % MCV 72.6 L (80.0-100.0) fL MCH 22.0 L (27.0-34.0) pg MCHC 30.3 L (32.0-36.0) % RDW 19.0 H (11.6-17.2) % Sodium (136-145) meq/L Carbon Dioxide (21.0-32.0) meq/L BUN (7-18) mg/dL Estimated GFR (>89) mL/min POC Glucose (68-110) mg/dl Calcium (8.5-10.1) mg/dL Lipase (73-393) U/L Short CBC 07/15/18 Range/Units 08:24 WBC 4.8 (4.0-11.0) th/mm3 Hgb 10.4 L (13.0-17.0) gm/dL Hct 34.3 L (39.0-51.0) % Plt Count 178 (150-450) th/mm3 BMP 07/15/18 05:38 Sodium 134 L Potassium 3.8 Chloride 102 Carbon Dioxide 19.8 L BUN 19 H Creatinine 1.02 Calcium 7.9 L <Keara Tilley - 07/15/18 11:23> Abnormal lab results 07/14/18 07/14/18 07/15/18 Range/Units 11:35 17:22 05:38 Hgb (13.0-17.0) gm/dL Hct (39.0-51.0) % MCV (80.0-100.0) fL MCH (27.0-34.0) pg MCHC (32.0-36.0) % RDW (11.6-17.2) % Sodium 134 L (136-145) meq/L Carbon Dioxide 19.8 L (21.0-32.0) meq/L BUN 19 H (7-18) mg/dL Estimated GFR 76 L (>89) mL/min POC Glucose 140 H (68-110) mg/dl Calcium 7.9 L (8.5-10.1) mg/dL Lipase 68 L (73-393) U/L 07/15/18 Range/Units 08:24 Hgb 10.4 L (13.0-17.0) gm/dL Hct 34.3 L (39.0-51.0) % MCV 72.6 L (80.0-100.0) fL MCH 22.0 L (27.0-34.0) pg MCHC 30.3 L (32.0-36.0) % RDW 19.0 H (11.6-17.2) % Sodium (136-145) meq/L Carbon Dioxide (21.0-32.0) meq/L BUN (7-18) mg/dL Estimated GFR (>89) mL/min POC Glucose (68-110) mg/dl Calcium (8.5-10.1) mg/dL Lipase (73-393) U/L Short CBC 07/15/18 Range/Units 08:24 WBC 4.8 (4.0-11.0) th/mm3 Hgb 10.4 L (13.0-17.0) gm/dL Hct 34.3 L (39.0-51.0) % Plt Count 178 (150-450) th/mm3 BMP 07/15/18 05:38 Sodium 134 L Potassium 3.8 Chloride 102 Carbon Dioxide 19.8 L BUN 19 H Creatinine 1.02 Calcium 7.9 L <Cass Harp - 07/15/18 09:11> Physical Exam Vital signs: Vital Signs 07/14/18 12:00 07/14/18 16:00 07/14/18 20:00 Temperature 97.5 F L 97.1 F L 97.2 F L Pulse Rate 75 82 77 Respiratory Rate 17 17 20 Blood Pressure 128/78 132/74 136/80 Pulse Oximetry 99 100 100 07/15/18 00:00 07/15/18 03:40 07/15/18 04:00 Temperature 97.8 F 97.8 F Pulse Rate 74 92 H Respiratory Rate 18 16 20 Blood Pressure 115/70 129/80 Pulse Oximetry 100 100 07/15/18 08:00 07/15/18 09:00 Temperature 97.3 F L Pulse Rate 78 78 Respiratory Rate 20 Blood Pressure 132/75 Pulse Oximetry 100 Intake & Output 07/14/18 07/15/18 07/15/18 18:59 06:59 18:59 Intake Total 600 / 600 120 / 120 Output Total 1775 / 1775 Balance -1175 / -1175 120 / 120 Weight 79.4 kg Intake: Oral 600 / 600 120 / 120 Output: Urine 1774 / 177 Other: Date of Last Bowel Movement 07/11/18 07/11/18 07/11/18 # Bowel Movements 0 <Keara Tilley M - 07/15/18 11:23> Vital Signs 07/14/18 09:49 07/14/18 12:00 07/14/18 16:00 Temperature 97.5 F L 97.1 F L Pulse Rate 75 82 Respiratory Rate 17 17 Blood Pressure 128/78 132/74 Pulse Oximetry 97 99 100 07/14/18 20:00 07/15/18 00:00 07/15/18 03:40 Temperature 97.2 F L 97.8 F Pulse Rate 77 74 Respiratory Rate 20 18 16 Blood Pressure 136/80 115/70 Pulse Oximetry 100 100 07/15/18 04:00 Temperature 97.8 F Pulse Rate 92 H Respiratory Rate 20 Blood Pressure 129/80 Pulse Oximetry 100 Intake & Output 07/14/18 07/15/18 07/15/18 18:59 06:59 18:59 Intake Total 600 / 600 120 / 120 Output Total 1775 / 1775 Balance -1175 / -1175 120 / 120 Weight 79.4 kg Intake: Oral 600 / 600 120 / 120 Output: Urine 1775 / 1775 Other: Date of Last Bowel Movement 07/11/18 07/11/18 # Bowel Movements 0 <Cass Harp - 07/15/18 09:11> Narrative: GENERAL: Well-nourished male ambulating in hallways. NECK: No JVD CARDIOVASCULAR: Regular rate and rhythm without murmurs, gallops, or rubs. RESPIRATORY: Breath sounds equal bilaterally. No accessory muscle use. No rales or crackles heard. GASTROINTESTINAL: Abdomen soft, nondistended. Diffusely tender to light palpation greatest in right lower quadrant epigastric region. Negative Rovsing and obturator signs. bowel sounds present MUSCULOSKELETAL: No cyanosis, or edema. <Cass Harp - 07/15/18 10:28> Assessment and Plan - Assessment (1) CHF (congestive heart failure) Code(s): I50.9 - Heart failure, unspecified Status: Acute (2) Abdominal pain Code(s): R10.9 - Unspecified abdominal pain Status: Acute (3) Colitis Code(s): K52.9 - Noninfective gastroenteritis and colitis, unspecified Status : Acute (4) Diabetes mellitus Code(s): E11.9 - Type 2 diabetes mellitus without complications Status: Acute (5) Hypertension Code(s): I10 - Essential (primary) hypertension Status: Acute (6) Dyslipidemia Code(s): E78.5 - Hyperlipidemia, unspecified Status: Acute (7) History of alcohol abuse Code(s): Z87.898 - Personal history of other specified conditions Status: Acute (8) Nutrition, metabolism, and development symptoms Code(s): R63.8 - Other symptoms and signs concerning food and fluid intake Status: Acute <Keara Tilley - 07/15/18 11:23> (1) CHF (congestive heart failure) Code(s): I50.9 - Heart failure, unspecified Status: Acute Plan: Most recent echocardiogram in January of this year showed EF of <20% and pulmonary artery pressure of 48 -Improving -Patient given one dose of 40mg IV in ED -Transition to p.o. Lasix today 80 mg twice daily -Daily weights -Limit PO fluid intake to 1.5L daily -Monitor SOB -Lisinopril 5 mg daily -Patient's brother is to bring records today and we will resume heart failure medications -Avoid QT prolonging agents (2) Abdominal pain Code(s): R10.9 - Unspecified abdominal pain Status: Acute Plan: CT showed small amount of ascites and bowel wall thickening of the descending colon with small amount of adjacent free fluid -Consideration of ulcer versus gastroparesis -Hemoccult ordered -Continue to monitor I and O's -GI consulted, appreciate their recommendations -Patient reports that [place] did not help with his abdominal pain so he was switched to oral morphine every 6 hours as needed for pain (3) Colitis Code(s): K52.9 - Noninfective gastroenteritis and colitis, unspecified Status : Acute Plan: Patient is relatively asymptomatic with only moderate abdominal pain -Patient denies nausea, vomiting, fevers and only 1 instance of diarrhea -We will hold off on antibiotic treatment at this time, if requiring antibiotics in the future will avoid QT prolonging agents -We will continue to monitor -Continue on acid archie -See plan for abdominal pain above (4) Diabetes mellitus Code(s): E11.9 - Type 2 diabetes mellitus without complications Status: Acute Plan: Patient is on home Lantus of 18 units twice daily -Lantus 10 units twice daily we will adjust up as necessary -Low-dose sliding scale sliding scale -Bedside glucose checks (5) Hypertension Code(s): I10 - Essential (primary) hypertension Status: Acute Plan: -Lisinopril 5 mg daily -We will adjust medications based on records that brother is to bring in today (6) Dyslipidemia Code(s): E78.5 - Hyperlipidemia, unspecified Status: Acute Plan: Continue home atorvastatin (7) History of alcohol abuse Code(s): Z87.898 - Personal history of other specified conditions Status: Acute Plan: Patient denies current alcohol use. Review of records reveals that he was admitted prior for alcohol withdrawal. -[facility] protocol (8) Nutrition, metabolism, and development symptoms Code(s): R63.8 - Other symptoms and signs concerning food and fluid intake Status: Acute Plan: Diet: Cardiac and diabetic diet Fluids: Limit p.o. intake to 1.5 L per day DVT prophylaxis: Will use SCDs only pending Hemoccult results We will add Glucerna to his diet based on possibility of gastroparesis <Cass Harp - 07/15/18 10:17> - Assessment and Plan Discussed Condition With: Ian Pyle and Jarek <Cass Harp - 07/15/18 10:28> - Attending Attestation The exam, history, and the medical decision-making described in the above note were completed with the assistance of the resident physician. I reviewed and agree with the findings presented. I attest that I had a [id number] encounter with the patient on the same day, and personally performed and documented my assessment and findings in the medical record. He is up dressed and had an amazing recovery since yesterday. He is breathing well. will consult GI as he complains of multiple problems today <Keara Tilley - 07/15/18 11:22> <Cass Harp E - Last Filed: 07/15/18 10:17> (1) CHF (congestive heart failure) Qualifiers: Heart failure type: combined systolic and diastolic Heart failure chronicity : chronic Qualified Code(s): I50.42 - Chronic combined systolic (congestive) and diastolic (congestive) heart failure (2) Abdominal pain Qualifiers: Abdominal location: generalized Qualified Code(s): R10.84 - Generalized abdominal pain (4) Diabetes mellitus Qualifiers: Diabetes mellitus type: type 2 Diabetes mellitus intermediate insulin use: with powersaw supervisor use Diabetes mellitus complication status: with circulatory complication Diabetes mellitus complication detail: with peripheral angiopathy without gangrene Qualified Code(s): E11.51 - Type 2 diabetes mellitus with diabetic peripheral angiopathy without gangrene; Z79.4 - skilled nursing (current) use of insulin (5) Hypertension Qualifiers: Hypertension type: essential hypertension Qualified Code(s): I10 - Essential (primary) hypertension <Keara Tilley M - Last Filed: 07/15/18 11:23> (1) CHF (congestive heart failure) Qualifiers: Heart failure type: combined systolic and diastolic Heart failure chronicity : chronic Qualified Code(s): I50.42 - Chronic combined systolic (congestive) and diastolic (congestive) heart failure (2) Abdominal pain Qualifiers: Abdominal location: generalized Qualified Code(s): R10.84 - Generalized abdominal pain (4) Diabetes mellitus Qualifiers: Diabetes mellitus type: type 2 Diabetes mellitus powersaw supervisor insulin use: with intermediate use Diabetes mellitus complication status: with circulatory complication Diabetes mellitus complication detail: with peripheral angiopathy without gangrene Qualified Code(s): E11.51 - Type 2 diabetes mellitus with diabetic peripheral angiopathy without gangrene; Z79.4 - mold car pusher (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) use of insulin (5) Hypertension Qualifiers: Hypertension type: essential hypertension Qualified Code(s): I10 - Essential (primary) hypertension <Cass Harp E - Last Filed: 07/15/18 10:17> (1) CHF (congestive heart failure) Qualifiers: Heart failure type: combined systolic and diastolic Heart failure chronicity : chronic Qualified Code(s): I50.42 - Chronic combined systolic (congestive) and diastolic (congestive) heart failure (2) Abdominal pain Qualifiers: Abdominal location: generalized Qualified Code(s): R10.84 - Generalized abdominal pain (4) Diabetes mellitus Qualifiers: Diabetes mellitus type: type 2 Diabetes mellitus intermediate insulin use: with intermediate use Diabetes mellitus complication status: with circulatory complication Diabetes mellitus complication detail: with peripheral angiopathy without gangrene Qualified Code(s): E11.51 - Type 2 diabetes mellitus with diabetic peripheral angiopathy without gangrene; Z79.4 - mold car pusher (current) use of insulin (5) Hypertension Qualifiers: Hypertension type: essential hypertension Qualified Code(s): I10 - Essential (primary) hypertension <Keara Tilley M - Last Filed: 07/15/18 11:23> (1) CHF (congestive heart failure) Qualifiers: Heart failure type: combined systolic and diastolic Heart failure chronicity : chronic Qualified Code(s): I50.42 - Chronic combined systolic (congestive) and diastolic (congestive) heart failure (2) Abdominal pain Qualifiers: Abdominal location: generalized Qualified Code(s): R10.84 - Generalized abdominal pain (4) Diabetes mellitus Qualifiers: Diabetes mellitus type: type 2 Diabetes mellitus intermediate insulin use: with powersaw supervisor use Diabetes mellitus complication status: with circulatory complication Diabetes mellitus complication detail: with peripheral angiopathy without gangrene Qualified Code(s): E11.51 - Type 2 diabetes mellitus with diabetic peripheral angiopathy without gangrene; Z79.4 - skilled nursing (current) use of insulin (5) Hypertension Qualifiers: Hypertension type: essential hypertension Qualified Code(s): I10 - Essential (primary) hypertension
[2018-07-15] MEDS: Morphine Sulfate 15 MG IR Tablet PO PRN ×2 (12:59→18:29)
[2018-07-15] MEDS: Furosemide 80 MG Tablet PO SCH (17:35)
[2018-07-16] MEDS: Morphine Sulfate 15 MG IR Tablet PO PRN ×4 (00:23→20:32)
[2018-07-16] MEDS: Morphine Inj 4 MG/ML Vial IV.PUSH PRN (04:50)
[2018-07-16] MEDS: Senna/Docusate Sodium 8.6/50 MG Tablet PO SCH ×2 (08:16→20:32)
[2018-07-16] MEDS: Lisinopril 5 MG Tablet PO SCH (08:16)
[2018-07-16] MEDS: Insulin NovoLOG Aspart Correctional Sugar Inj SQ SCH ×4 (08:16→20:32)
[2018-07-16] MEDS: Insulin Detemir Inj 1,000 UNIT/10 ML Vial SQ SCH ×2 (08:17→20:32)
[2018-07-16] MEDS: Furosemide 80 MG Tablet PO SCH ×2 (08:20→17:53)
--- NOTE | 2018-07-16 08:43 | P.PNFP ---
Subjective Interval history: Mr. Hu was seen on morning. He reports that his shortness of breath is much better. He is able to ambulate the halls without difficulty. He does still require extra pillows to sleep but feels as if this is improved from home. He was urinating yesterday without difficulty. He is still endorsing burning abdominal pain similar to yesterday. He is attempting to eat smaller meals throughout the day and feels that this does help some. He reports that the morphine does help with the pain. He has not had a bowel movement since Saturday despite receiving Senokot. He denies nausea, vomiting, diarrhea, dysuria, chest pain. <Cass Harp E - 07/16/18 08:43> Results - Labs Result diagrams: 07/16/18 09:10 07/15/18 05:38 <Keraa Tilley - 07/18/18 09:54> Abnormal lab results 07/17/18 Range/Units 12:40 POC Glucose 112 H (68-110) mg/dl <Keara Tilley - 07/18/18 09:54> Abnormal lab results 07/15/18 07/15/18 07/15/18 Range/Units 08:24 11:38 16:47 Hgb 10.4 L (13.0-17.0) gm/dL Hct 34.3 L (39.0-51.0) % MCV 72.6 L (80.0-100.0) fL MCH 22.0 L (27.0-34.0) pg MCHC 30.3 L (32.0-36.0) % RDW 19.0 H (11.6-17.2) % POC Glucose 138 H 141 H (68-110) mg/dl 07/15/18 07/16/18 Range/Units 19:37 07:42 Hgb (13.0-17.0) gm/dL Hct (39.0-51.0) % MCV (80.0-100.0) fL MCH (27.0-34.0) pg MCHC (32.0-36.0) % RDW (11.6-17.2) % POC Glucose 150 H 121 H (68-110) mg/dl Short CBC 07/15/18 Range/Units 08:24 WBC 4.8 (4.0-11.0) th/mm3 Hgb 10.4 L (13.0-17.0) gm/dL Hct 34.3 L (39.0-51.0) % Plt Count 178 (150-450) th/mm3 <Cass Harp - 07/16/18 08:43> Physical Exam Vital signs: Vital Signs 07/17/18 10:45 07/17/18 10:59 07/17/18 11:58 Temperature 97.5 F L 97.5 F L Pulse Rate 80 82 Respiratory Rate 16 16 Blood Pressure 92/55 L 105/58 L Pulse Oximetry 97 98 99 Intake & Output 07/17/18 07/18/18 07/18/18 18:59 06:59 18:59 Intake Total 300 / 300 Balance 300 / 300 Intake: Anesthesia Amount 300 / 300 <Keara Tilley - 07/18/18 09:54> Vital Signs 07/15/18 09:00 07/15/18 12:00 07/15/18 14:28 Temperature 97.1 F L Pulse Rate 78 84 Respiratory Rate 20 Blood Pressure 135/77 Pulse Oximetry 100 96 07/15/18 16:00 07/15/18 17:28 07/15/18 20:00 Temperature 97.5 F L 97.7 F Pulse Rate 88 94 H Respiratory Rate 20 16 Blood Pressure 119/68 126/64 Pulse Oximetry 100 96 100 07/16/18 00:00 07/16/18 03:58 07/16/18 04:00 Temperature 97.5 F L 97.6 F Pulse Rate 94 H 82 89 Respiratory Rate 15 16 Blood Pressure 137/75 131/73 Pulse Oximetry 100 100 Intake & Output 07/15/18 07/16/18 07/16/18 18:59 06:59 18:59 Output Total 6 / 6 Balance -6 / -6 Weight 79.4 kg Output: Urine / 6 Other: Date of Last Bowel Movement 07/11/18 <Cass Harp - 07/16/18 08:43> Narrative: GENERAL: Well-nourished male lying in bed NECK: No JVD CARDIOVASCULAR: Regular rate and rhythm without murmurs, gallops, or rubs. RESPIRATORY: Breath sounds equal bilaterally. No accessory muscle use. No rales or crackles heard. GASTROINTESTINAL: Abdomen soft, nondistended. Diffusely tender to deep palpation. bowel sounds present MUSCULOSKELETAL: No cyanosis, or edema. No calf tenderness <Cass Harp - 07/16/18 08:43> Assessment and Plan - Assessment (1) CHF (congestive heart failure) Code(s): I50.9 - Heart failure, unspecified Status: Acute (2) Diabetes mellitus Code(s): E11.9 - Type 2 diabetes mellitus without complications Status: Acute (3) Hypertension Code(s): I10 - Essential (primary) hypertension Status: Acute (4) Abdominal pain Code(s): R10.9 - Unspecified abdominal pain Status: Acute <JarekKeara M - 07/18/18 09:54> (1) CHF (congestive heart failure) Code(s): I50.9 - Heart failure, unspecified Status: Acute Plan: Most recent echocardiogram in January of this year showed EF of <20% and pulmonary artery pressure of 48 -Improving -Patient given one dose of 40mg IV in ED -Continue p.o. Lasix today 80 mg twice daily -Daily weights (weight 79.4 kg down from 80.9 kg on admission) -Limit PO fluid intake to 1.5L daily -Monitor SOB -Lisinopril 5 mg daily -Patient's brother did not bring records yesterday. Plans to get records today to resume heart failure medications. -Avoid QT prolonging agents (2) Abdominal pain Code(s): R10.9 - Unspecified abdominal pain Status: Acute Plan: CT showed small amount of ascites and bowel wall thickening of the descending colon with small amount of adjacent free fluid -Consideration of ulcer versus gastroparesis -Hemoccult ordered, still uncollected -Continue to monitor I and O's -GI consulted, appreciate their recommendations -Patient reports that [place] did not help with his abdominal pain so he was switched to oral morphine every 6 hours as needed for pain (3) Colitis Code(s): K52.9 - Noninfective gastroenteritis and colitis, unspecified Status : Acute Plan: Patient is relatively asymptomatic with only moderate abdominal pain -Patient denies nausea, vomiting, fevers and only 1 instance of diarrhea on Saturday -We will hold off on antibiotic treatment at this time, if requiring antibiotics in the future will avoid QT prolonging agents -We will continue to monitor -Continue on acid archie -See plan for abdominal pain above (4) Diabetes mellitus Code(s): E11.9 - Type 2 diabetes mellitus without complications Status: Acute Plan: Patient is on home Lantus of 18 units twice daily -Lantus 10 units twice daily we will adjust up as necessary -Low-dose sliding scale sliding scale -Bedside glucose checks -Patient refused his insulin yesterday evening because he reports that he " knows my body and I know that if I took the insulin I would be low and fainting and dizzy". Patient counseled on the need for continuing his insulin regimen and that we can provide snacks if his blood sugars dropped to much. (5) Hypertension Code(s): I10 - Essential (primary) hypertension Status: Acute Plan: -Lisinopril 5 mg daily -We will adjust medications based on records that brother is to bring in today (6) Dyslipidemia Code(s): E78.5 - Hyperlipidemia, unspecified Status: Acute Plan: Continue home atorvastatin (7) History of alcohol abuse Code(s): Z87.898 - Personal history of other specified conditions Status: Acute Plan: Patient denies current alcohol use. Review of records reveals that he was admitted prior for alcohol withdrawal. -[facility] protocol (8) Nutrition, metabolism, and development symptoms Code(s): R63.8 - Other symptoms and signs concerning food and fluid intake Status: Acute Plan: Diet: Cardiac and diabetic diet, patient counseled to eat smaller amounts throughout the day Fluids: Limit p.o. intake to 1.5 L per day DVT prophylaxis: Will use SCDs only pending Hemoccult results We will add Glucerna to his diet based on possibility of gastroparesis <Cass Harp E - 07/16/18 08:36> - Assessment and Plan Discussed Condition With: Ian Pyle and Jarek <Cass Harp E - 07/16/18 08:43> - Attending Attestation The exam, history, and the medical decision-making described in the above note were completed with the assistance of the resident physician. I reviewed and agree with the findings presented. I attest that I had a [id number] encounter with the patient on the same day, and personally performed and documented my assessment and findings in the medical record. On further questioning, he has no primary care Dr and his Insurance is trying to find him one. This is very bad for a heart failure pt. will do a one time visit with FP after D/C <Keara Tilley - 07/18/18 09:54> <Cass Harp - Last Filed: 07/16/18 08:36> (1) CHF (congestive heart failure) Qualifiers: Heart failure type: combined systolic and diastolic Heart failure chronicity : chronic Qualified Code(s): I50.42 - Chronic combined systolic (congestive) and diastolic (congestive) heart failure (2) Abdominal pain Qualifiers: Abdominal location: generalized Qualified Code(s): R10.84 - Generalized abdominal pain (4) Diabetes mellitus Qualifiers: Diabetes mellitus type: type 2 Diabetes mellitus group home insulin use: with manager intermediate use Diabetes mellitus complication status: with circulatory complication Diabetes mellitus complication detail: with peripheral angiopathy without gangrene Qualified Code(s): E11.51 - Type 2 diabetes mellitus with diabetic peripheral angiopathy without gangrene; Z79.4 - detention (current) use of insulin (5) Hypertension Qualifiers: Hypertension type: essential hypertension Qualified Code(s): I10 - Essential (primary) hypertension <Keara Tilley - Last Filed: 07/18/18 09:54> (1) CHF (congestive heart failure) Qualifiers: Heart failure type: combined systolic and diastolic Heart failure chronicity : chronic Qualified Code(s): I50.42 - Chronic combined systolic (congestive) and diastolic (congestive) heart failure (2) Diabetes mellitus Qualifiers: Diabetes mellitus type: type 2 Diabetes mellitus manager intermediate insulin use: with group home use Diabetes mellitus complication status: with circulatory complication Diabetes mellitus complication detail: with peripheral angiopathy without gangrene Qualified Code(s): E11.51 - Type 2 diabetes mellitus with diabetic peripheral angiopathy without gangrene; Z79.4 - [place] (current) use of insulin (3) Hypertension Qualifiers: Hypertension type: essential hypertension Qualified Code(s): I10 - Essential (primary) hypertension (4) Abdominal pain Qualifiers: Abdominal location: generalized Qualified Code(s): R10.84 - Generalized abdominal pain <Cass Harp E - Last Filed: 07/16/18 08:36> (1) CHF (congestive heart failure) Qualifiers: Heart failure type: combined systolic and diastolic Heart failure chronicity : chronic Qualified Code(s): I50.42 - Chronic combined systolic (congestive) and diastolic (congestive) heart failure (2) Abdominal pain Qualifiers: Abdominal location: generalized Qualified Code(s): R10.84 - Generalized abdominal pain (4) Diabetes mellitus Qualifiers: Diabetes mellitus type: type 2 Diabetes mellitus manager intermediate insulin use: with group home use Diabetes mellitus complication status: with circulatory complication Diabetes mellitus complication detail: with peripheral angiopathy without gangrene Qualified Code(s): E11.51 - Type 2 diabetes mellitus with diabetic peripheral angiopathy without gangrene; Z79.4 - [place] (current) use of insulin (5) Hypertension Qualifiers: Hypertension type: essential hypertension Qualified Code(s): I10 - Essential (primary) hypertension <Keara Tilley - Last Filed: 07/18/18 09:54> (1) CHF (congestive heart failure) Qualifiers: Heart failure type: combined systolic and diastolic Heart failure chronicity : chronic Qualified Code(s): I50.42 - Chronic combined systolic (congestive) and diastolic (congestive) heart failure (2) Diabetes mellitus Qualifiers: Diabetes mellitus type: type 2 Diabetes mellitus group home insulin use: with manager intermediate use Diabetes mellitus complication status: with circulatory complication Diabetes mellitus complication detail: with peripheral angiopathy without gangrene Qualified Code(s): E11.51 - Type 2 diabetes mellitus with diabetic peripheral angiopathy without gangrene; Z79.4 - [place] (current) use of insulin (3) Hypertension Qualifiers: Hypertension type: essential hypertension Qualified Code(s): I10 - Essential (primary) hypertension (4) Abdominal pain Qualifiers: Abdominal location: generalized Qualified Code(s): R10.84 - Generalized abdominal pain
[2018-07-16 09:40] LABS: Hematocrit 33.9 % (39.0-51.0); Hemoglobin 10.4 gm/dL (13.0-17.0); Mean Corpuscular Hemoglobin 22.2 pg (27.0-34.0); Mean Corpuscular Volume 72.4 fL (80.0-100.0); Mean Platelet Volume 8.9 fL (7.0-11.0); Platelet Count 186 th/mm3 (150-450); Red Blood Count 4.69 mil/mm3 (4.50-5.90); Red Cell Distribution Width 19.1 % (11.6-17.2); White Blood Count 4.2 th/mm3 (4.0-11.0)
[2018-07-16 09:52] LABS: Mean Corpuscular HGB Conc 30.6 % (32.0-36.0)
--- NOTE | 2018-07-16 12:55 | P.CONGI ---
History of Present Illness Consult date: 07/16/18 Consult reason: Abdominal pain history of ulcers and NSAID use Chief complaint: chf, pleural effusion, collitis History of Present Illness: This is a 53-year-old male who came to the hospital on 07/13/2018 with some shortness of breath as well as abdominal tightness and pain. Onset of symptoms of abdominal pain were predominantly in the right lower quadrant which have waxed and waned for the past 3 weeks. Patient states that the pain has progressively gotten worse with a pain scale of 10 out of 10. Patient states that decreased appetite and eating makes the pain worse. Patient states uncontrolled symptoms of dyspepsia with esophagus feeling like it is on fire when he is eating food as well as the gastric area of his stomach patient has significant history of heart disease, pacemaker, as well as congestive heart failure and is currently on the transplant list. Patient notes no family history of colon cancer and last colonoscopy was in the late 70s. Patient denies any previous history of EGD. Patient does note a history of some constipation chronic. On [address] scan showed thickening in the descending colon which could be related to colitis patient also had some ascites noted. Current labs show patient to be anemic with hemoglobin 10.4, PT/INR 1.6, mild coagulopathy and patient is on aspirin 81 mg daily. Gastroenterology was consulted to assist with patient's uncontrolled symptoms of dysphasia, abdominal pain rule out esophagitis and ulcer disease. <Althea Tiwari - Last Filed: 07/16/18 13:15> Review of Systems All other systems reviewed negative except as stated in HPI <Althea Tiwari - Last Filed: 07/16/18 13:15> PMFSH - History History Provided By: Patient - Tobacco History Second Hand Smoke Exposure: No Tobacco Use In Past 30 Days: Yes Smoking Status: Current some day smoker Tobacco Type: Cigarettes - Alcohol History How Often Do You Have a Drink Containing Alcohol: Never - Substance Use History Substance History: Active Abuse - Substance Use Type Marijuana Status: Active Route Used: Inhalation Reason for Use: Calm Down - Travel History Recent Travel in the [place] Within the Last 8 Weeks: No Recent Travel Out of the Country Within the Last 8 Weeks: No - Immunization History Tetanus Immunization: Unsure <Althea Tiwari - Last Filed: 07/16/18 13:15> Medications and Allergies Active Medications: Active Medications Al Hydroxide/Mg Hydroxide (Milk Of Deshawn Vazquez) 30 ml PO Q12H PRN PRN Reason: Mild Constipation Aspirin (Ecotrin) 81 mg PO DAILY [facility] Last Admin: 07/16/18 08:16 Dose: 81 mg Atorvastatin Calcium (Lipitor) 10 mg PO HS [facility] Last Admin: 07/15/18 21:18 Dose: 10 mg Dextrose (D50w Vial) 50 ml IV.PUSH UNSCH PRN PRN Reason: PER HYPOGLYCEMIA PROTOCOL Flumazenil (Romazecon Inj) 0.2 mg IV.PUSH Q1M PRN PRN Reason: OVERSEDATION Furosemide (Lasix) 80 mg PO BID@0900,1800 [facility] Last Admin: 07/16/18 08:20 Dose: 80 mg Glucagon (Glucagon Inj) 1 mg OTHER PRN PRN PRN Reason: for Hypoglycemia Protocol Haloperidol Lactate (Haldol Inj) 1 mg IV.PUSH Q15M PRN PRN Reason: for severe agitation Insulin Aspart (Novolog Insulin Correctional Sugar Inj) 0 unit SQ [facility]; Protocol Last Admin: 07/16/18 08:16 Dose: Not Given Insulin Detemir (Levemir Inj) 10 unit SQ BID [facility] Last Admin: 07/16/18 08:17 Dose: Not Given Lisinopril (Prinivil) 5 mg PO DAILY [facility] Last Admin: 07/16/18 08:16 Dose: 5 mg Lorazepam (Ativan) 1 mg PO Q4H PRN PRN Reason: for CIWA 8-10 Lorazepam (Ativan) 2 mg PO Q2H PRN PRN Reason: for CIWA 11-14 Lorazepam (Ativan Inj) 2 mg IV.PUSH Q2H PRN PRN Reason: for CIWA 11-14 Lorazepam (Ativan Inj) 2 mg IV.PUSH Q1H PRN PRN Reason: for CIWA 15-20 Lorazepam (Ativan Inj) 2 mg IV.PUSH Q15M PRN PRN Reason: for CIWA > 20 Lorazepam (Ativan Inj) 1 mg IV.PUSH Q4H PRN PRN Reason: for CIWA 8-10 Meclizine HCl (Antivert) 25 mg PO Q8H PRN PRN Reason: NAUSEA OR VOMITING Morphine Sulfate (Morphine Inj) 2 mg IV.PUSH Q4H PRN PRN Reason: BREAKTHROUGH PAIN Last Admin: 07/16/18 04:50 Dose: 2 mg Morphine Sulfate (Msir) 15 mg PO Q6H PRN PRN Reason: ABDOMINAL PAIN Last Admin: 07/16/18 08:16 Dose: 15 mg Pantoprazole Sodium (Protonix) 40 mg PO DAILY [facility] Last Admin: 07/16/18 08:16 Dose: 40 mg Phytonadione (Aquamephyton Inj) 1 mg SQ ONCE ONE Stop: 07/16/18 16:03 Senna/Docusate Sodium (Mariam-Colace) 1 tab PO BID [facility] Last Admin: 07/16/18 08:16 Dose: 1 tab Sennosides (Senokot) 17.2 mg PO Q12H PRN PRN Reason: Moderate Constipation <Althea Tiwari - Last Filed: 07/16/18 13:15> Active Medications: Active Medications Al Hydroxide/Mg Hydroxide (Milk Of Magnree Liq) 30 ml PO Q12H PRN PRN Reason: Mild Constipation Aspirin (Ecotrin) 81 mg PO DAILY [facility] Last Admin: 07/16/18 08:16 Dose: 81 mg Atorvastatin Calcium (Lipitor) 10 mg PO HS [facility] Last Admin: 07/15/18 21:18 Dose: 10 mg Dextrose (D50w Vial) 50 ml IV.PUSH UNSCH PRN PRN Reason: PER HYPOGLYCEMIA PROTOCOL Flumazenil (Romazecon Inj) 0.2 mg IV.PUSH Q1M PRN PRN Reason: OVERSEDATION Furosemide (Lasix) 80 mg PO BID@0900,1800 [facility] Last Admin: 07/16/18 08:20 Dose: 80 mg Glucagon (Glucagon Inj) 1 mg OTHER PRN PRN PRN Reason: for Hypoglycemia Protocol Haloperidol Lactate (Haldol Inj) 1 mg IV.PUSH Q15M PRN PRN Reason: for severe agitation Metronidazole/Sodium Chloride (Flagyl 500 Mg Inj) 100 mls @ 100 mls/hr IV.SIG Q8H [facility] Insulin Aspart (Novolog Insulin Correctional Sugar Inj) 0 unit SQ ACHS [facility]; Protocol Last Admin: 07/16/18 12:54 Dose: 1 unit Insulin Detemir (Levemir Inj) 10 unit SQ BID [facility] Last Admin: 07/16/18 08:17 Dose: Not Given Lisinopril (Prinivil) 5 mg PO DAILY [facility] Last Admin: 07/16/18 08:16 Dose: 5 mg Lorazepam (Ativan) 1 mg PO Q4H PRN PRN Reason: for CIWA 8-10 Lorazepam (Ativan) 2 mg PO Q2H PRN PRN Reason: for CIWA 11-14 Lorazepam (Ativan Inj) 2 mg IV.PUSH Q2H PRN PRN Reason: for CIWA 11-14 Lorazepam (Ativan Inj) 2 mg IV.PUSH Q1H PRN PRN Reason: for CIWA 15-20 Lorazepam (Ativan Inj) 2 mg IV.PUSH Q15M PRN PRN Reason: for CIWA > 20 Lorazepam (Ativan Inj) 1 mg IV.PUSH Q4H PRN PRN Reason: for CIWA 8-10 Meclizine HCl (Antivert) 25 mg PO Q8H PRN PRN Reason: NAUSEA OR VOMITING Morphine Sulfate (Morphine Inj) 2 mg IV.PUSH Q4H PRN PRN Reason: BREAKTHROUGH PAIN Last Admin: 07/16/18 04:50 Dose: 2 mg Morphine Sulfate (Msir) 15 mg PO Q6H PRN PRN Reason: ABDOMINAL PAIN Last Admin: 07/16/18 08:16 Dose: 15 mg Pantoprazole Sodium (Protonix) 40 mg PO DAILY [facility] Last Admin: 07/16/18 08:16 Dose: 40 mg Phytonadione (Aquamephyton Inj) 1 mg SQ ONCE ONE Stop: 07/16/18 16:03 Polyethylene Glycol (Miralax) 17 gm PO DAILY [facility] Senna/Docusate Sodium (Mariam-Colace) 1 tab PO BID [facility] Last Admin: 07/16/18 08:16 Dose: 1 tab Sennosides (Senokot) 17.2 mg PO Q12H PRN PRN Reason: Moderate Constipation <JessyJewel A - Last Filed: 07/16/18 14:09> Allergies Allergy/AdvReac Type Severity Reaction Status Date / Time amoxicillin Allergy Mild Hives Verified 01/20/18 14:32 oxycodone Allergy Mild Hives Verified 01/20/18 14:32 Home Medications Medication Instructions Recorded Confirmed Type Aspir-81 81 mg PO DAILY 07/13/18 07/13/18 History furosemide [Lasix] 20 mg PO Q6HR 09/02/18 09/02/18 History insulin aspart U-100 [Novolog 15 unit SUB-Q BID 07/13/18 07/13/18 History Flexpen U-100 Insulin] Exam Vital signs: Vital Signs 07/15/18 14:28 07/15/18 16:00 07/15/18 17:28 Temperature 97.5 F L Pulse Rate 88 Respiratory Rate 20 Blood Pressure 119/68 Pulse Oximetry 96 100 96 07/15/18 20:00 07/16/18 00:00 07/16/18 03:58 Temperature 97.7 F 97.5 F L Pulse Rate 94 H 94 H 82 Respiratory Rate 16 15 Blood Pressure 126/64 137/75 Pulse Oximetry 100 100 07/16/18 04:00 07/16/18 08:00 07/16/18 09:00 Temperature 97.6 F Pulse Rate 89 82 Respiratory Rate 16 16 Blood Pressure 131/73 Pulse Oximetry 100 07/16/18 10:15 Temperature Pulse Rate Respiratory Rate Blood Pressure Pulse Oximetry 99 Intake & Output 07/15/18 07/16/18 07/16/18 18:59 06:59 18:59 Output Total Balance -6 / -6 Weight 79.4 kg Output: Urine Other: Date of Last Bowel Movement 07/11/18 07/11/18 - Constitutional mild distress, average body habitus, cooperative - Routine HEENT Exam Head: Present: normocephalic, atraumatic ENT: Present: mucous membranes moist - Routine Neck Exam Present: supple - Routine Respiratory Exam Present: accessory muscle use (Mild diminished breath sounds but even and unlabored at rest) - Routine Cardiovascular Exam Present: S1, S2, murmur - Routine Abdominal Exam Present: soft (Mild distention, bowel sounds soft, mild pressure in the right lower quadrant abdomen) - Routine Neurological Exam Present: alert <Althea Tiwari M - Last Filed: 07/16/18 13:15> Vital signs: Vital Signs 07/15/18 14:28 07/15/18 16:00 07/15/18 17:28 Temperature 97.5 F L Pulse Rate 88 Respiratory Rate 20 Blood Pressure 119/68 Pulse Oximetry 96 100 96 07/15/18 20:00 07/16/18 00:00 07/16/18 03:58 Temperature 97.7 F 97.5 F L Pulse Rate 94 H 94 H 82 Respiratory Rate 16 15 Blood Pressure 126/64 137/75 Pulse Oximetry 100 100 07/16/18 04:00 07/16/18 08:00 07/16/18 09:00 Temperature 97.6 F Pulse Rate 89 82 Respiratory Rate 16 16 Blood Pressure 131/73 Pulse Oximetry 100 07/16/18 10:15 Temperature Pulse Rate Respiratory Rate Blood Pressure Pulse Oximetry 99 Intake & Output 07/15/18 07/16/18 07/16/18 18:59 06:59 18:59 Output Total Balance -6 / -6 Weight 79.4 kg Output: Urine Other: Date of Last Bowel Movement 07/11/18 07/11/18 <Jewel Jiménez - Last Filed: 07/16/18 14:09> Results - Labs CBC & Chem 7: 07/16/18 09:10 07/15/18 05:38 Labs: Laboratory Results - last 24 hr 07/15/18 07/15/18 07/16/18 16:47 19:37 07:42 WBC RBC Hgb Hct MCV MCH MCHC RDW Plt Count MPV POC Glucose 141 H 150 H 121 H 07/16/18 07/16/18 09:10 11:38 WBC 4.2 RBC 4.69 Hgb 10.4 L Hct 33.9 L MCV 72.4 L MCH 22.2 L MCHC 30.6 L RDW 19.1 H Plt Count 186 MPV 8.9 POC Glucose 152 H <Althea Tiwari - Last Filed: 07/16/18 13:15> - Labs CBC & Chem 7: 07/16/18 09:10 07/15/18 05:38 Labs: Laboratory Results - last 24 hr 07/15/18 07/15/18 07/16/18 16:47 19:37 07:42 WBC RBC Hgb Hct MCV MCH MCHC RDW Plt Count MPV POC Glucose 141 H 150 H 121 H 07/16/18 07/16/18 09:10 11:38 WBC 4.2 RBC 4.69 Hgb 10.4 L Hct 33.9 L MCV 72.4 L MCH 22.2 L MCHC 30.6 L RDW 19.1 H Plt Count 186 MPV 8.9 POC Glucose 152 H <Jewel Jiménez - Last Filed: 07/16/18 14:09> Assessment and Plan (1) Dyspepsia Status: Acute Code(s): R10.13 - Epigastric pain (2) Colitis Status: Acute Code(s): K52.9 - Noninfective gastroenteritis and colitis, unspecified (3) Abdominal pain Status: Acute Code(s): R10.9 - Unspecified abdominal pain (4) Constipation Status: Acute Code(s): K59.00 - Constipation, unspecified - Plan Dyspepsia with probable esophagitis rule out ulcer disease, rule out Jennings's esophagus. Onset of symptoms approximately 3 weeks ago which have progressively gotten worse. Worse after eating with burning sensation all the way down esophagus into stomach. No previous EGD History of constipation, right lower quadrant pain colitis seen on CT scan in the descending colon area, abdominal ascites. Colitis could be caused from chronic constipation and history of NSAID use but patient states no recent ibuprofen usage. CT scan on 07 13. Anemia current hemoglobin 10.4 PT/INR 1.6 and patient is on ASA 81 mg daily. States colonoscopy back in the late 70s History of end-stage cardiac disease. Patient has pacemaker, states he is on the transplant list. Currently has no obvious shortness of breath at rest and appears to be very in tuned with his cardiac symptoms or any fluid overload. Plan Diet per attending, reflux precautions chew food very thoroughly hydration and eat slowly Consent for EGD in a.m. PT/INR ordered in a.m. and will need to be evaluated and reported to GI if greater than 1.4. May need to consider FFP before procedure Consider vitamin K dose, hospitalist notified and ordered, Monitor labs Added Flagyl 500 mg IV every 8h. Bowel regimen, added MiraLAX daily, if made ineffective please give dose of milk of magnesia this p.m. PPI Further recommendations to follow Patient was seen per myself and Dr. Jiménez, note was written on his behalf <Althea Tiwari - Last Filed: 07/16/18 13:15> (1) Dyspepsia Status: Acute Code(s): R10.13 - Epigastric pain (2) Colitis Status: Acute Code(s): K52.9 - Noninfective gastroenteritis and colitis, unspecified (3) Abdominal pain Status: Acute Code(s): R10.9 - Unspecified abdominal pain (4) Constipation Status: Acute Code(s): K59.00 - Constipation, unspecified - Attending Attestation Seen and examined with sacha Oh as above, will schedule EGD and Colonoscopy tomorrow given the upper GI symptoms and CT findings. Will follow up with you. Thank you for the consult. <Jewel Jiménez A - Last Filed: 07/16/18 14:09> <Althea Tiwari - Last Filed: 07/16/18 13:15> (3) Abdominal pain Qualifiers: Abdominal location: generalized Qualified Code(s): R10.84 - Generalized abdominal pain <Jewel Jiménez A - Last Filed: 07/16/18 14:09> (3) Abdominal pain Qualifiers: Abdominal location: generalized Qualified Code(s): R10.84 - Generalized abdominal pain
[2018-07-16] MEDS: Polyethylene Glycol 3350 17 GM Packet PO SCH (14:34)
[2018-07-16] MEDS ORDERED: PEG 3350/E-Lyte Soln 4000 ML Bottle PO ONE (15:30)
[2018-07-17] MEDS: Morphine Sulfate 15 MG IR Tablet PO PRN ×2 (04:02→11:24)
[2018-07-17 07:36] LABS: INR 1.4 Ratio; Prothrombin Time 13.7 sec (9.8-11.6)
[2018-07-17] MEDS: Insulin NovoLOG Aspart Correctional Sugar Inj SQ SCH ×3 (08:03→17:43)
--- NOTE | 2018-07-17 08:14 | P.PNFP ---
Subjective Interval history: Mr. Alon Monge was seen on rounds today. Resting comfortably in bed. He reports that his shortness of breath is much improved almost back to his baseline. He is able to ambulate the halls without difficulty. He is able to lie flatter than he was yesterday. His abdominal pain is much improved since he stopped eating yesterday at about 1600 in preparation for colonoscopy and EGD this morning. He was able to drink the colonoscopy prep without difficulty and reports that his stools are now clear. He denies chest pain, nausea, vomiting, hematochezia, melena <Cass Harp E - 07/17/18 08:32> Results - Labs Result diagrams: 07/16/18 09:10 07/15/18 05:38 <Keara Tilley - 07/18/18 11:41> Abnormal lab results 07/17/18 Range/Units 12:40 POC Glucose 112 H (68-110) mg/dl <Keara Tilley - 07/18/18 11:41> Abnormal lab results 07/16/18 07/16/18 07/16/18 Range/Units 09:10 11:38 17:06 Hgb 10.4 L (13.0-17.0) gm/dL Hct 33.9 L (39.0-51.0) % MCV 72.4 L (80.0-100.0) fL MCH 22.2 L (27.0-34.0) pg MCHC 30.6 L (32.0-36.0) % RDW 19.1 H (11.6-17.2) % PT (9.8-11.6) sec POC Glucose 152 H 144 H (68-110) mg/dl 07/17/18 Range/Units 06:15 Hgb (13.0-17.0) gm/dL Hct (39.0-51.0) % MCV (80.0-100.0) fL MCH (27.0-34.0) pg MCHC (32.0-36.0) % RDW (11.6-17.2) % PT 13.7 H (9.8-11.6) sec POC Glucose (68-110) mg/dl Short CBC 07/16/18 Range/Units 09:10 WBC 4.2 (4.0-11.0) th/mm3 Hgb 10.4 L (13.0-17.0) gm/dL Hct 33.9 L (39.0-51.0) % Plt Count 186 (150-450) th/mm3 <Cass Harp - 07/17/18 08:14> Physical Exam Vital signs: Vital Signs 07/17/18 11:58 Pulse Oximetry 99 Intake & Output 07/17/18 07/18/18 07/18/18 18:59 06:59 18:59 Intake Total 300 / 300 Balance 300 / 300 Intake: Anesthesia Amount 300 / 300 <JarekMarcelinoKeara M - 07/18/18 11:41> Vital Signs 07/16/18 09:00 07/16/18 10:15 07/16/18 12:00 Temperature 97.3 F L Pulse Rate 82 88 Respiratory Rate 18 Blood Pressure 116/81 Pulse Oximetry 99 100 07/16/18 16:00 07/16/18 17:37 07/16/18 20:00 Temperature 97.7 F 97.5 F L Pulse Rate 79 91 H Respiratory Rate 18 18 Blood Pressure 128/77 120/74 Pulse Oximetry 100 99 100 07/17/18 00:00 07/17/18 04:00 Temperature 97.4 F L 97.4 F L Pulse Rate 87 87 Respiratory Rate 18 18 Blood Pressure 123/76 124/77 Pulse Oximetry 99 99 Intake & Output 07/16/18 07/17/18 07/17/18 18:59 06:59 18:59 Intake Total 100 / 100 200 / 200 Balance 100 / 100 200 / 200 Weight 80.9 kg Intake: IV 100 / 100 200 / 200 Flagyl 500 MG Inj 100 ML @ 100 100 / 100 200 / 200 mls/hr IV.SIG Q8H [facility] Rx#: [id number] Other: Date of Last Bowel Movement 07/11/18 <Cass Harp - 07/17/18 08:14> Narrative: GENERAL: Well-nourished male lying in bed NECK: No JVD CARDIOVASCULAR: Regular rate and rhythm without murmurs, gallops, or rubs. RESPIRATORY: Breath sounds equal bilaterally. No accessory muscle use. No rales or crackles heard. GASTROINTESTINAL: Abdomen soft, nondistended. bowel sounds present. Nontender to palpation MUSCULOSKELETAL: No cyanosis, or edema. No calf tenderness <Cass Harp - 07/17/18 08:32> Assessment and Plan - Assessment (1) CHF (congestive heart failure) Code(s): I50.9 - Heart failure, unspecified Status: Acute (2) Diabetes mellitus Code(s): E11.9 - Type 2 diabetes mellitus without complications Status: Acute (3) Hypertension Code(s): I10 - Essential (primary) hypertension Status: Acute (4) Abdominal pain Code(s): R10.9 - Unspecified abdominal pain Status: Acute <Keara Tilley Enzo - 07/18/18 11:41> (1) CHF (congestive heart failure) Code(s): I50.9 - Heart failure, unspecified Status: Acute Plan: Most recent echocardiogram in January of this year showed EF of <20% and pulmonary artery pressure of 48 -Exacerbation resolved -Patient given one dose of 40mg IV in ED -Continue p.o. Lasix today 80 mg twice daily -Daily weights (weight 79.4 kg down from 80.9 kg on admission) -Limit PO fluid intake to 1.5L daily -Monitor SOB -Lisinopril 5 mg daily -Patient's brother did not bring records yesterday. Plans to get records today to resume heart failure medications. -Avoid QT prolonging agents (2) Abdominal pain Code(s): R10.9 - Unspecified abdominal pain Status: Acute Plan: CT showed small amount of ascites and bowel wall thickening of the descending colon with small amount of adjacent free fluid -Consideration of ulcer versus gastroparesis -Plans for EGD and colonoscopy this morning. patient was n.p.o. overnight. Follow-up with GI recommendations based on results -Hemoccult ordered, patient refused collection of stool sample -Patient has had multiple bowel movements since starting the GoLYTELY prep last night -Continue oral morphine every 6 hours as needed for pain (3) Colitis Code(s): K52.9 - Noninfective gastroenteritis and colitis, unspecified Status : Acute Plan: Patient is relatively asymptomatic with only moderate abdominal pain -Patient denies nausea, vomiting, fevers and only 1 instance of diarrhea on Saturday -Nursing reports that patient was nauseous and vomiting, due to patient's prolonged QT meclizine was ordered per pharmacy recommendation to alleviate nausea but patient has not required medication -Patient started on Flagyl 500 mg q. 8 per GI recommendation. -We will continue to monitor -Continue on acid archie -See plan for abdominal pain above (4) Diabetes mellitus Code(s): E11.9 - Type 2 diabetes mellitus without complications Status: Acute Plan: Patient is on home Lantus of 18 units twice daily -Lantus 10 units twice daily we will adjust up as necessary -Low-dose sliding scale sliding scale -Bedside glucose checks -Patient has been refusing his insulin again because he reports that he knows his body and he fears that he will drop too low (5) Hypertension Code(s): I10 - Essential (primary) hypertension Status: Acute Plan: -Lisinopril 5 mg daily -We will adjust medications based on records that brother is to bring in today (6) Dyslipidemia Code(s): E78.5 - Hyperlipidemia, unspecified Status: Acute Plan: Continue home atorvastatin (7) History of alcohol abuse Code(s): Z87.898 - Personal history of other specified conditions Status: Acute Plan: Patient denies current alcohol use. Review of records reveals that he was admitted prior for alcohol withdrawal. -[facility] protocol (8) Nutrition, metabolism, and development symptoms Code(s): R63.8 - Other symptoms and signs concerning food and fluid intake Status: Acute Plan: Diet: Cardiac and diabetic diet, patient counseled to eat smaller amounts throughout the day Fluids: Limit p.o. intake to 1.5 L per day DVT prophylaxis: Will use SCDs only pending colonoscopy results We will add Glucerna to his diet based on possibility of gastroparesis <Cass Harp E - 07/17/18 08:23> - Assessment and Plan Discussed Condition With: Ian Pyle and Jarek <Cass Harp - 07/17/18 08:32> - Attending Attestation The exam, history, and the medical decision-making described in the above note were completed with the assistance of the resident physician. I reviewed and agree with the findings presented. I attest that I had a [id number] encounter with the patient on the same day, and personally performed and documented my assessment and findings in the medical record. He diuresed well and is breathing much better. <Keara Tilley M - 07/18/18 11:41> <Cass Harp E - Last Filed: 07/17/18 08:23> (1) CHF (congestive heart failure) Qualifiers: Heart failure type: combined systolic and diastolic Heart failure chronicity : chronic Qualified Code(s): I50.42 - Chronic combined systolic (congestive) and diastolic (congestive) heart failure (2) Abdominal pain Qualifiers: Abdominal location: generalized Qualified Code(s): R10.84 - Generalized abdominal pain (4) Diabetes mellitus Qualifiers: Diabetes mellitus type: type 2 Diabetes mellitus terminal makeup operator insulin use: with intermediate use Diabetes mellitus complication status: with circulatory complication Diabetes mellitus complication detail: with peripheral angiopathy without gangrene Qualified Code(s): E11.51 - Type 2 diabetes mellitus with diabetic peripheral angiopathy without gangrene; Z79.4 - prison (current) use of insulin (5) Hypertension Qualifiers: Hypertension type: essential hypertension Qualified Code(s): I10 - Essential (primary) hypertension <Keara Tilley M - Last Filed: 07/18/18 11:41> (1) CHF (congestive heart failure) Qualifiers: Heart failure type: combined systolic and diastolic Heart failure chronicity : chronic Qualified Code(s): I50.42 - Chronic combined systolic (congestive) and diastolic (congestive) heart failure (2) Diabetes mellitus Qualifiers: Diabetes mellitus type: type 2 Diabetes mellitus terminal makeup operator insulin use: with terminal makeup operator use Diabetes mellitus complication status: with circulatory complication Diabetes mellitus complication detail: with peripheral angiopathy without gangrene Qualified Code(s): E11.51 - Type 2 diabetes mellitus with diabetic peripheral angiopathy without gangrene; Z79.4 - terminal makeup operator (current) use of insulin (3) Hypertension Qualifiers: Hypertension type: essential hypertension Qualified Code(s): I10 - Essential (primary) hypertension (4) Abdominal pain Qualifiers: Abdominal location: generalized Qualified Code(s): R10.84 - Generalized abdominal pain <Cass Harp - Last Filed: 07/17/18 08:23> (1) CHF (congestive heart failure) Qualifiers: Heart failure type: combined systolic and diastolic Heart failure chronicity : chronic Qualified Code(s): I50.42 - Chronic combined systolic (congestive) and diastolic (congestive) heart failure (2) Abdominal pain Qualifiers: Abdominal location: generalized Qualified Code(s): R10.84 - Generalized abdominal pain (4) Diabetes mellitus Qualifiers: Diabetes mellitus type: type 2 Diabetes mellitus intermediate insulin use: with terminal makeup operator use Diabetes mellitus complication status: with circulatory complication Diabetes mellitus complication detail: with peripheral angiopathy without gangrene Qualified Code(s): E11.51 - Type 2 diabetes mellitus with diabetic peripheral angiopathy without gangrene; Z79.4 - prison (current) use of insulin (5) Hypertension Qualifiers: Hypertension type: essential hypertension Qualified Code(s): I10 - Essential (primary) hypertension <Keara Tilley - Last Filed: 07/18/18 11:41> (1) CHF (congestive heart failure) Qualifiers: Heart failure type: combined systolic and diastolic Heart failure chronicity : chronic Qualified Code(s): I50.42 - Chronic combined systolic (congestive) and diastolic (congestive) heart failure (2) Diabetes mellitus Qualifiers: Diabetes mellitus type: type 2 Diabetes mellitus terminal makeup operator insulin use: with terminal makeup operator use Diabetes mellitus complication status: with circulatory complication Diabetes mellitus complication detail: with peripheral angiopathy without gangrene Qualified Code(s): E11.51 - Type 2 diabetes mellitus with diabetic peripheral angiopathy without gangrene; Z79.4 - terminal makeup operator (current) use of insulin (3) Hypertension Qualifiers: Hypertension type: essential hypertension Qualified Code(s): I10 - Essential (primary) hypertension (4) Abdominal pain Qualifiers: Abdominal location: generalized Qualified Code(s): R10.84 - Generalized abdominal pain
--- NOTE | 2018-07-17 08:41 | P.DS ---
Date of admission: 07/13/18 15:14 Primary care physician: No Primary Care Physician Attending physician on discharge: Keara Tilley Brief History from admission: Mr Hu is a 53-year-old male with past medical history of CHF here for chest, abdominal tightness as well as shortness of breath. Currently on heart transplant list in [place]. 2 days ago he noticed the tightness. He called his doctor and they told him to take 4 pills of the 20mg of Lasix from usual 20mg. Urinating well but only taking his Lasix once a day. 5 lb weight gain in 2 days. Feels tightness in lower abdominal quadrants. No N/V. Denies lower extremity edema but does feel as if his sneakers are tightening. Has had to increase pillow usage to 4 at night. Nonproductive cough. SOB walking from the parking lot. At his baseline he is able to ambulate a couple of blocks without difficulty. Also reports isolated incident of night sweats. He was given 40 mg of Lasix IV in the emergency department. He stated he did have some urine output but does not feel like he diuresed that well. He still feels very short of breath he is still is on the 4 pillows he still cannot walk very well without increased shortness of breath. He also was questioned more about his abdominal problems. He has been a diabetic for a long time and he stated he has had stomach problems for a while where he is able to drink fluids but solids seem to make him extra full. He does have some burning in his esophagus when he swallows. He does not have diarrhea or other problems today. 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 EtOH none Drugs- marijuana "once in a blue gonzalez" Lives at home with mother DS: Diagnosis - Discharge Diagnosis (1) CHF (congestive heart failure) Status: Acute (2) Diabetes mellitus Status: Acute (3) Hypertension Status: Acute (4) Abdominal pain Status: Acute DS: Medications - Discharge Medications Prescriptions: furosemide [Lasix] See Label Instructions .ROUTE .COMPLEX #120 tab pantoprazole 40 mg PO DAILY 28 Days #28 tab DS: Summary Hospital Course: Mr Hu is a 53 YO male with PMHx DM, CHF, HTN, HLD, Hx EtOH abuse and bilateral amputated toes who presented to the ED with acute CHF exacerbation, chest tightness, SOB, and abdominal pain with admission BNP 2362, CXR negative and CT abdomen and pelvis significant for right pleural effusion and colitis. Pt had a 5 lb weight gain several days prior to presentation. Lipase was 62 and UA was negative. Pt stated he had been taking his home dose of Lasix 40 mg daily but could not recall his HTN medications. Pt had not had a bowel movement since 07/11. EKG showed NSR with occasional PVCs and new left axis deviation. His Troponin was 0.03 and CK-MB 5.0. Pt was given 40 mg IV Lasix in the ED placed on 1.5 L fluid restriction per day, daily weights and strict I/Os, and CIWA scoring ordered due to background of EtOH abuse. The next morning he was again given Lasix 40 mg IV in the morning, but with an insufficient response, dosing was increased to 80 mg IV BID. By 07/15 we were able to track a 1.7 L UOP and pt was feeling significantly better. Pt's BNP on improved to 1456. Cr decreased 1.12 to 1.02. Pt's glucose on SSI and Levemir 10 units BID was controlled from 99-152 with pt refusing several doses and knowing his baseline. Pt stated he could not tolerate Percocet and was given IV Morphine in the ED. From his last hospitalization, pt had been given [place] and was started on that. After 2 days, pt stated he wanted morphine only and did not like the [place], so he was switched to PO morphine. Due to continued abdominal pain, GI was consulted and began bowel prep 07/16 in anticipation of EGD and colonoscopy on 07/17. Pt began to have bowel movements the evening of 07/16 that pt states did not contain blood. Although a Hemoccult stool test was ordered, pt refused it. Pt was unable to get information concerning his HTN regimen, so was started on low dose lisinopril and atorvastatin. Results of EGD show one small ulcer at the GEJ, and gastritis throughout the stomach. Colonoscopy showed on sessile polyp with polypectomy. GI cleared pt for discharge and pt was ready to discharge on 07/17/18. AFVSS and physical exam was benign. Pt will follow up with Dr Harp within 1 week since he does not have a PCP. Pt should follow up with repeat colonoscopy in 1 year. Pt should receive pathology results from GI in 7-10 days. - Time Spent with Patient Total time spent providing and/or coordinating discharge services: Greater than 30 minutes - Quality: VTE Deep Vein Thrombosis/Pulmonary Embolism Present on Admission: No Exam Vital signs: Vital Signs 07/16/18 09:00 07/16/18 10:15 07/16/18 12:00 Temperature 97.3 F L Pulse Rate 82 88 Respiratory Rate 18 Blood Pressure 116/81 Pulse Oximetry 99 100 07/16/18 16:00 07/16/18 17:37 07/16/18 20:00 Temperature 97.7 F 97.5 F L Pulse Rate 79 91 H Respiratory Rate 18 18 Blood Pressure 128/77 120/74 Pulse Oximetry 100 99 100 07/17/18 00:00 07/17/18 04:00 Temperature 97.4 F L 97.4 F L Pulse Rate 87 87 Respiratory Rate 18 18 Blood Pressure 123/76 124/77 Pulse Oximetry 99 99 Intake & Output 07/16/18 07/17/18 07/17/18 18:59 06:59 18:59 Intake Total 100 / 100 200 / 200 Balance 100 / 100 200 / 200 Weight 80.9 kg Intake: IV 100 / 100 200 / 200 Flagyl 500 MG Inj 100 ML @ 100 100 / 100 200 / 200 mls/hr IV.SIG Q8H [facility] Rx#: [id number] Other: Date of Last Bowel Movement 07/11/18 Narrative: GENERAL: Well-nourished male lying in bed NECK: No JVD CARDIOVASCULAR: Regular rate and rhythm without murmurs, gallops, or rubs. RESPIRATORY: Breath sounds equal bilaterally. No accessory muscle use. No rales or crackles heard. GASTROINTESTINAL: Abdomen soft, nondistended. Bowel sounds present. Mildly tender in epigastrum to palpation; much improved since admission. MUSCULOSKELETAL: No cyanosis, or edema. No calf tenderness. Bilateral toes amputated. Results Procedures completed during hospitalization: EGD 07/17/18 IMPRESSIONS: 1. Small ulcer was found at the gastroesophageal junction; biopsies were taken 2. There was erythematous gastritis in the entire examined stomach 3. Multiple small erosions were found in the gastric antrum; multiple biopsies was performed 4. Food residue in the entire examined stomach 5. Duodenal inflammation was found in the duodenal bulb and 2nd part duodenum 6. Retroflexion was performed and was normal RECOMMENDATIONS: 1. Await biopsy results. Biopsy results will not be ready for 7-10 days. If you don't hear from us in two weeks, call our office for biopsy results. 2. Continue PPI 3. Avoid NSAIDS 4. Anti-reflux regimen PATIENT CONDITION: stable DISPOSITION: Observation REPEAT EXAM: NONE Colonoscopy 07/17/18 IMPRESSIONS: 1. Small amount of stool was present throughout the entire examined colon 2. A small sessile polyp was found in the transverse colon; polypectomy was performed with cold forceps 3. Retroflexed views revealed internal hemorrhoids 4. Retroflexed views revealed medium internal hemorrhoids RECOMMENDATIONS: Await biopsy results. Biopsy results will not be ready for 7-10 days. If you don't hear from us in two weeks, call our office for results. RECALL: Return 1 year Colonoscopy, pending biopsy results Dr Jiménez Completed studies during hospitalization: Laboratory Results WBC 4.2 th/mm3 (4.0-11.0) 07/16/18 09:10 RBC 4.69 mil/mm3 (4.50-5.90) 07/16/18 09:10 Hgb 10.4 gm/dL (13.0-17.0) L 07/16/18 09:10 Hct 33.9 % (39.0-51.0) L 07/16/18 09:10 MCV 72.4 fL (80.0-100.0) L 07/16/18 09:10 MCH 22.2 pg (27.0-34.0) L 07/16/18 09:10 MCHC 30.6 % (32.0-36.0) L 07/16/18 09:10 RDW 19.1 % (11.6-17.2) H 07/16/18 09:10 Plt Count 186 th/mm3 (150-450) 07/16/18 09:10 MPV 8.9 fL (7.0-11.0) 07/16/18 09:10 Neut % (Auto) 62.3 % (16.0-70.0) 07/14/18 06:50 Lymph % (Auto) 20.8 % (9.0-44.0) 07/14/18 06:50 [place] % (Auto) 9.3 % (0.0-8.0) H 07/14/18 06:50 Eos % (Auto) 6.6 % (0.0-4.0) H 07/14/18 06:50 Baso % (Auto) 1.0 % (0.0-2.0) 07/14/18 06:50 Neut # (Auto) 2.8 th/mm3 (1.8-7.7) 07/14/18 06:50 Lymph # (Auto) 0.9 th/mm3 (1.0-4.8) L 07/14/18 06:50 [place] # (Auto) 0.4 th/mm3 (0.0-0.9) 07/14/18 06:50 Eos # (Auto) 0.3 th/mm3 (0.0-0.4) 07/14/18 06:50 Baso # (Auto) 0.0 th/mm3 (0.0-0.2) 07/14/18 06:50 WBC Differential . 07/14/18 06:50 Differential Comment Auto diff final 07/14/18 06:50 Hematology Comments 07/14/18 06:50 PT 13.7 sec (9.8-11.6) H 07/17/18 06:15 INR 1.4 Ratio 07/17/18 06:15 APTT 31.7 sec (24.3-30.1) H 07/13/18 08:31 Sodium 134 meq/L (136-145) L 07/15/18 05:38 Potassium 3.8 meq/L (3.5-5.1) 07/15/18 05:38 Chloride 102 meq/L (98-107) 07/15/18 05:38 Carbon Dioxide 19.8 meq/L (21.0-32.0) L 07/15/18 05:38 Anion Gap 12 meq/L (5-15) 09/04/18 05:38 BUN 19 mg/dL (7-18) H 07/15/18 05:38 Creatinine 1.02 mg/dL (0.60-1.30) 07/15/18 05:38 Estimated GFR 76 mL/min (>89) L 07/15/18 05:38 POC Glucose 99 mg/dl (68-110) 07/17/18 07:56 Random Glucose 97 mg/dL (74-106) 07/15/18 05:38 Calcium 7.9 mg/dL (8.5-10.1) L 07/15/18 05:38 Magnesium 1.6 mg/dL (1.5-2.5) 07/15/18 05:38 Total Bilirubin 1.3 mg/dL (0.2-1.0) H 07/13/18 08:31 AST 53 U/L (15-37) H 07/13/18 08:31 ALT 42 U/L (12-78) 07/13/18 08:31 Alkaline Phosphatase 200 U/L (45-117) H 07/13/18 08:31 Total Creatine Kinase 151 U/L (39-308) 07/13/18 08:31 CK-MB (CK-2) 5.0 ng/mL (0.5-3.6) H 07/13/18 08:31 Troponin I 0.03 ng/mL (0.02-0.05) 07/13/18 08:31 B-Natriuretic Peptide 1456 pg/mL (0-100) H 07/14/18 06:50 Total Protein 8.4 g/dL (6.4-8.2) H 07/13/18 08:31 Albumin 2.7 g/dL (3.4-5.0) L 07/13/18 08:31 Lipase 68 U/L (73-393) L 07/14/18 11:35 Urine Color Yellow (Yellw/Straw) 07/13/18 18:34 Urine Clarity Hazy (Clear) H 07/13/18 18:34 Urine pH 7.0 (5.0-8.5) 07/13/18 18:34 Ur Specific [employer] 1.006 (1.002-1.035) 07/13/18 18:34 Urine Protein Negative mg/dL (Neg-Trace) 09/02/18 18:34 Urine Glucose (UA) Negative mg/dL (Negative) 07/13/18 18:34 Urine Ketones Negative mg/dL (Negative) 07/13/18 18:34 Urine Occult Blood Negative (Negative) 07/13/18 18:34 Urine Nitrate Negative (Negative) 07/13/18 18:34 Urine Bilirubin Negative (Negative) 07/13/18 18:34 Urine Urobilinogen Less than 2 mg/dL (Less than 2) 07/13/18 18:34 Ur Leukocyte Esterase Negative (Negative) 07/13/18 18:34 Urine RBC Less than 1 /hpf (0-3) 07/13/18 18:34 Urine WBC 1 /hpf (0-5) 07/13/18 18:34 Ur Squamous Epith Cells 3 /hpf (0-5) 07/13/18 18:34 Urine Bacteria Rare /hpf (None) H 07/13/18 18:34 Urine Mucus Few /lpf (Occasional) H 07/13/18 18:34 Micro UA Comment Culture not ind 07/13/18 18:34 Ur Microscopic Review Not Reportable 07/13/18 18:34 Urine Culture Comments Culture not ind 07/13/18 18:34 Impressions Chest X-Ray 07/13/18 08:05 CONCLUSION: Negative examination. Abdomen/Pelvis CT 07/13/18 11:35 CONCLUSION: 1. Bowel wall thickening is seen involving the descending colon with a small amount of adjacent free fluid accounting for the findings on the recent CT exam. This would be characteristic of colitis. 2. Right effusion. Labs on day of discharge: Labs from last 24 hours 07/17/18 07/17/18 07/16/18 07:56 06:15 17:06 WBC RBC Hgb Hct MCV MCH MCHC RDW Plt Count MPV PT 13.7 H INR 1.4 POC Glucose 99 144 H 07/16/18 07/16/18 11:38 09:10 WBC 4.2 RBC 4.69 Hgb 10.4 L Hct 33.9 L MCV 72.4 L MCH 22.2 L MCHC 30.6 L RDW 19.1 H Plt Count 186 MPV 8.9 PT INR POC Glucose 152 H - Impressions ITS Impressions Chest X-Ray 07/13/18 08:05 CONCLUSION: Negative examination. Abdomen/Pelvis CT 07/13/18 11:35 CONCLUSION: 1. Bowel wall thickening is seen involving the descending colon with a small amount of adjacent free fluid accounting for the findings on the recent CT exam. This would be characteristic of colitis. 2. Right effusion. Discharge Plan - Discharge Disposition Patient Disposition: 01 Discharge Home - Discharge Condition Condition: Stable - Discharge Order Discharge Orders: Discharge Order (Routine); Ordered 07/17/18 Ordered By: Cass Harp - Discharge Details Anticipated Discharge Date: 07/17/18 Discharge Comment: March discharge afternoon/evening of 07/17 is colonoscopy and EGD go well and cleared by GI. - Physicians Team Primary Care Provider: Primary Care Yoli Phan Attending Provider: Keara Tilley Other Providers: Jewel Jiménez MD
[2018-07-17] MEDS: Senna/Docusate Sodium 8.6/50 MG Tablet PO SCH (08:46)
[2018-07-17] MEDS: Insulin Detemir Inj 1,000 UNIT/10 ML Vial SQ SCH (08:46)
[2018-07-17] MEDS ORDERED: Chlorhexidine Gluconate 2% 1 Pack (2 Cloths) TOPICAL SCH (10:30)
[2018-07-17] MEDS ORDERED: Metoprolol Tartrate 25 MG Tablet PO SCH (10:30)
--- NOTE | 2018-07-17 10:50 | GIPROC ---
[facility] [address] [facility]. [facility], [address] EGD PROCEDURE REPORT EXAM DATE: 07/17/2018 PATIENT NAME: Guerrero Hu MR #: [id number] BIRTHDATE: 1965 ATTENDING: Jewel Jiménez MD ORDER #: [id number] SFDC DEVELOPER: Bere Freire and Basilio Sr STATUS: inpatient INDICATIONS: The patient is a 53 yr old male here for an EGD due to anemia and hematochezia PROCEDURE PERFORMED: EGD w/ biopsy MEDICATIONS: None and Per Anesthesia. TOPICAL ANESTHETIC: none CONSENT: The patient understands the risks and benefits of the procedure and understands that these risks include, but are not limited to: sedation, allergic reaction, infection, perforation and/or bleeding. Alternative means of evaluation and treatment include, among others: physical exam, x-rays, and/or surgical intervention. The patient elects to proceed with this endoscopic procedure. medical equipment was checked for proper function. Hand hygiene and appropriate measures for infection prevention was taken. After the risks, benefits and alternatives of the procedure were thoroughly explained, Informed consent was verified, confirmed and timeout was successfully executed by the treatment team. The patient was anesthetized with topical anesthesia and the EC-3490Li (Pedi C) endoscope was introduced through the mouth and advanced to the second portion of the duodenum. Retroflexion was performed and was normal The gastroscope was then slowly withdrawn and removed. ESOPHAGUS: A small non-bleeding, round and clean-based ulcer was found at the gastroesophageal junction. Biopsies were taken at edge of the ulcer and at the center of the ulcer. STOMACH: There was erythematous moderate and erosive gastritis in the entire examined stomach. Multiple small shallow erosions were found in the gastric antrum. Multiple biopsies was performed using cold forceps. Sample sent for histology. There was a moderate amount of residual food seen in the entire examined stomach. DUODENUM: Mild duodenal inflammation was found in the duodenal bulb and 2nd part duodenum. ADVERSE EVENTS: There were no complications. IMPRESSIONS: 1. Small ulcer was found at the gastroesophageal junction; biopsies were taken 2. There was erythematous gastritis in the entire examined stomach 3. Multiple small erosions were found in the gastric antrum; multiple biopsies was performed 4. Food residue in the entire examined stomach 5. Duodenal inflammation was found in the duodenal bulb and 2nd part duodenum 6. Retroflexion was performed and was normal RECOMMENDATIONS: 1. Await biopsy results. Biopsy results will not be ready for 7-10 days. If you don't hear from us in two weeks, call our office for biopsy results. 2. Continue PPI 3. Avoid NSAIDS 4. Anti-reflux regimen PATIENT CONDITION: stable DISPOSITION: Observation REPEAT EXAM: NONE Jewel Jiménez MD eSigned: Jewel Jiménez MD 07/17/2018 10:49 AM cc: PATIENT NAME: Guerrero Hu MR#: [id number]
[2018-07-17 10:54] VITALS: RESP 16; TEMP 97.5
[2018-07-17] MEDS ORDERED: Sodium Chlor 0.9% Inj 500 ML IV.SIG SCH (11:00)
[2018-07-17 11:01] VITALS: BP 105/58; PULSE 82
--- NOTE | 2018-07-17 11:01 | GIPROC ---
[facility] [address] [facility]. [facility], [address] COLONOSCOPY PROCEDURE REPORT EXAM DATE: 07/17/2018 PATIENT NAME: Guerrero Hu MR #: [id number] BIRTHDATE: 1965 ENDOSCOPIST: Jewel Jiménez MD ORDER #: [id number] DATAPOWER DEVELOPER: Basilio Sr and Bere Freire STATUS: inpatient INDICATIONS: The patient is a 53 yr old male here for a colonoscopy due to anemia, non-specific and hematochezia PROCEDURE PERFORMED: Colonoscopy with polypectomy MEDICATIONS: None and Per Anesthesia. PREP QUALITY: poor PREP TYPE:GoLytely ESTIMATED BLOOD LOSS: None CONSENT: The patient understands the risks and benefits of the procedure and understands that these risks include, but are not limited to: sedation, allergic reaction, infection, perforation and/or bleeding. Alternative means of evaluation and treatment include, among others: physical exam, x-rays, and/or surgical intervention. The patient elects to proceed with this endoscopic procedure. medical equipment was checked for proper function. Hand hygiene and appropriate measures for infection prevention was taken. After the risks, benefits and alternatives of the procedure were thoroughly explained, Informed consent was verified, confirmed and timeout was successfully executed by the treatment team. A digital exam revealed no abnormalities of the rectum The Pentax EC-3490Li endoscope was introduced through the anus and advanced to the cecum, which was identified by both the appendix and ileocecal valve. The instrument was then slowly withdrawn as the colon was fully examined. COLON FINDINGS: A small amount of stool was present throughout the entire examined colon. A small polypoid shaped sessile polyp was found in the transverse colon. A polypectomy was performed with cold forceps. The resection was complete and the polyp tissue was completely retrieved. Retroflexed views revealed internal hemorrhoids and Retroflexed views revealed medium internal hemorrhoids The scope was then completely withdrawn from the patient and the procedure terminated. PROCEDURE WITHDRAWAL TIME:10minutes ADVERSE EVENTS: There were no complications. IMPRESSIONS: 1. Small amount of stool was present throughout the entire examined colon 2. A small sessile polyp was found in the transverse colon; polypectomy was performed with cold forceps 3. Retroflexed views revealed internal hemorrhoids 4. Retroflexed views revealed medium internal hemorrhoids RECOMMENDATIONS: Await biopsy results. Biopsy results will not be ready for 7-10 days. If you don't hear from us in two weeks, call our office for results. RECALL: Return 1 year Colonoscopy, pending biopsy results Jewel Jiménez MD eSigned: Jewel Jiménez MD 07/17/2018 11:01 AM cc:
[2018-07-17] MEDS: Lisinopril 5 MG Tablet PO SCH (11:24)
[2018-07-17] MEDS: Furosemide 80 MG Tablet PO SCH (11:24)
[2018-07-17] MEDS: Polyethylene Glycol 3350 17 GM Packet PO SCH (11:25)
[2018-07-17 11:59] VITALS: O2SAT 99
== END 2018-07-17 17:56 | disposition home or self-care (01) ==
LOC: NEPC 07:41 → NEDA 15:14 → N04 19:04
PROVIDERS: ADMIT Family Medicine; ATTEND Family Medicine
PROC: PANENDO (2018-07-17 11:30)

== ENCOUNTER 2018-09-18 14:30 | Observation (INO) ==
--- NOTE | 2018-09-18 15:45 | ED ---
HPI General Chief complaint: Respiratory Symptoms Stated complaint: PHY sent/Lungs Time Seen by Provider: 09/18/18 15:19 Source: patient, RN notes reviewed and old records reviewed Mode of arrival: ambulatory History of Present Illness HPI narrative: 53yM presenting with lower extremity edema and shortness of breath. The patient states that he has a history of CHF with EF of 11% s/p AICD , following with [place] for heart transplant evaluation. He says that he was admitted to [facility] 2 weeks ago for CHF exacerbation, was diuresed and had a discharge weight around 155 lbs. He says that for the past 3- 4 days he's been having worsening lower extremity edema, scrotal edema, and dyspnea on minimal exertion. He also reports intermittent substernal chest "pressure" which is non-radiating, moderate to severe intensity, not made better or worse by anything, associated with fatigue. He saw his PMD today and said that his weight is up to 190 lbs so he was sent to the ED for further evaluation. He has increased his lasix dose over the past week without improvement in symptoms. Related Data Home Medications Medication Instructions Recorded Confirmed insulin aspart U-100 [Novolog 18 unit SUB-Q BID 07/13/18 09/18/18 Flexpen U-100 Insulin] furosemide [Lasix] 20 mg PO BID 09/18/18 09/18/18 Previous Rx's Medication Instructions Recorded atorvastatin [Lipitor] 10 mg PO HS tab 07/17/18 lisinopril 5 mg PO DAILY tab 07/17/18 pantoprazole [Protonix] 40 mg PO DAILY #30 tab 08/08/18 sucralfate [Carafate] 1 g PO Q6H #120 tab 08/08/18 Allergies Allergy/AdvReac Type Severity Reaction Status Date / Time amoxicillin Allergy Mild Hives Verified 09/18/18 15:20 oxycodone Allergy Mild Hives Verified 09/18/18 15:20 nitroglycerin AdvReac Vomiting Verified 09/18/18 15:20 Review of Systems ROS: all other systems reviewed are negative Constitutional Reports chills and Denies fever(s) Cardiovascular Reports chest pain Respiratory Reports dyspnea and Reports dyspnea on exertion Gastrointestinal Denies abdominal pain and Reports nausea Neurologic Denies confusion [facility] Medical History Medical History CHF (congestive heart failure) (Acute) Chest pain (Acute) Diabetes (Acute) Gastritis (Acute) HTN (hypertension) (Acute) Heart attack (Acute) Heart transplant candidate (Acute) Hyperlipidemia (Acute) Lead poisoning (Acute) Pacemaker (Acute) Surgical History Surgical History H/O Spinal surgery (Acute) H/O toe surgery (Acute) History of surgery on arm (Acute) Social History Social History Substance History: Active Abuse Second Hand Smoke Exposure: No Smoking Status: Former smoker Tobacco Type: Cigarettes How Often Do You Have a Drink Containing Alcohol: 2 to 3 times a week Recent Travel in [facility] within the Last 8 Weeks: No Recent Out of Country Travel within the Last 8 Weeks: No Substance Abuse Detail Marijuana: Substance Use Status: Active Route Used Substance Abuse: By Mouth Immunization History Tetanus Immunization: <5 Years Exam Const General: no acute distress HENMT Head: normocephalic and atraumatic Face and sinus: normal facial exam Eyes General: appearance normal, both eyes and all related structures Pupils: PERRL Chest Chest: normal inspection of the chest Resp Other: Normal work of breathing, no respiratory distress Diminished breath sounds at bases bilaterally Cardio Rate: regular rate Rhythm: regular rhythm GI Inspection: non-distended Palpation: soft and nontender Skin General: no rashes or lesions noted Neuro General: alert, awake, oriented x3 and no focal motor deficits Extrem Other: 1-2+ pitting edema to knees bilaterally, 1+ to groin bilaterally Multiple toe amputations Psych Affect: normal affect Course Initial Documented Vital Signs Temperature 99.0 F 09/18/18 14:36 Pulse Rate 100 H 09/18/18 14:36 Respiratory Rate 20 09/18/18 14:36 Blood Pressure 125/85 09/18/18 14:36 Pulse Oximetry 100 09/18/18 14:36 Last Documented Vital Signs Temperature 99.0 F 09/18/18 14:36 Pulse Rate 95 H 09/18/18 15:22 Respiratory Rate 19 09/18/18 15:22 Blood Pressure 128/75 09/18/18 15:22 Pulse Oximetry 100 09/18/18 15:22 Medical Decision Making MDM Narrative Medical decision making narrative: Assessment: 53yM presenting with lower extremity edema, weight gain, dyspnea on exertion Plan: EKG and monitor CXR Labs Diuresis Addendum: Case discussed with Dr. Kim of [facility], patient to be observed for CHF exacerbation. Medical Screen Exam Complete: Yes Emergency Medical Condition: Yes Differential Diagnosis Differential Diagnosis: Differential diagnosis includes, but is not limited to: CHF exacerbation, ACS, ANDREI, cardiorenal syndrome, pneumonia Medical Records Medical records reviewed: Yes I reviewed the patient's medical records. Echo 01/26: EF <20%, moderate TR, PA pressure 48 mmHg Lab Data Lab results reviewed: Yes I reviewed the patient's lab results. Result diagrams: 09/18/18 15:42 09/18/18 15:42 Lab Results 09/18/18 09/18/18 09/18/18 Range/Units 15:42 15:42 15:42 WBC 4.2 (4.0-11.0) th/mm3 RBC 4.46 L (4.50-5.90) mil/mm3 Hgb 9.4 L (13.0-17.0) gm/dL Hct 30.4 L (39.0-51.0) % MCV 68.1 L (80.0-100.0) fL MCH 21.2 L (27.0-34.0) pg MCHC 31.1 L (32.0-36.0) % RDW 20.4 H (11.6-17.2) % Plt Count 110 L (150-450) th/mm3 MPV 8.3 (7.0-11.0) fL Neut % (Auto) 67.4 (16.0-70.0) % Lymph % (Auto) 16.4 (9.0-44.0) % [place] % (Auto) 9.7 H (0.0-8.0) % Eos % (Auto) 5.8 H (0.0-4.0) % Baso % (Auto) 0.7 (0.0-2.0) % Neut # (Auto) 2.9 (1.8-7.7) th/mm3 Lymph # (Auto) 0.7 L (1.0-4.8) th/mm3 [place] # (Auto) 0.4 (0.0-0.9) th/mm3 Eos # (Auto) 0.2 (0.0-0.4) th/mm3 Baso # (Auto) 0.0 (0.0-0.2) th/mm3 WBC Differential . Differential Comment Auto diff final PT 14.0 H (9.8-11.6) sec INR 1.4 Ratio Sodium 137 (136-145) meq/L Potassium 3.4 L (3.5-5.1) meq/L Chloride 106 (98-107) meq/L Carbon Dioxide 19.7 L (21.0-32.0) meq/L Anion Gap 11 (5-15) meq/L BUN 19 H (7-18) mg/dL Creatinine 1.24 (0.60-1.30) mg/dL Estimated GFR 61 L (>89) mL/min Random Glucose 141 H (74-106) mg/dL Calcium 8.2 L (8.5-10.1) mg/dL Magnesium 1.8 (1.5-2.5) mg/dL Total Bilirubin 1.1 H (0.2-1.0) mg/dL AST 41 H (15-37) U/L ALT 24 (12-78) U/L Alkaline Phosphatase 211 H (45-117) U/L Total Creatine Kinase 270 (39-308) U/L CK-MB (CK-2) 6.5 H (0.5-3.6) ng/mL Troponin I 0.04 (0.02-0.05) ng/mL B-Natriuretic Peptide (0-100) pg/mL Total Protein 8.7 H (6.4-8.2) g/dL Albumin 2.9 L (3.4-5.0) g/dL Lipase 104 (73-393) U/L 09/18/18 Range/Units 15:42 WBC (4.0-11.0) th/mm3 RBC (4.50-5.90) mil/mm3 Hgb (13.0-17.0) gm/dL Hct (39.0-51.0) % MCV (80.0-100.0) fL MCH (27.0-34.0) pg MCHC (32.0-36.0) % RDW (11.6-17.2) % Plt Count (150-450) th/mm3 MPV (7.0-11.0) fL Neut % (Auto) (16.0-70.0) % Lymph % (Auto) (9.0-44.0) % [place] % (Auto) (0.0-8.0) % Eos % (Auto) (0.0-4.0) % Baso % (Auto) (0.0-2.0) % Neut # (Auto) (1.8-7.7) th/mm3 Lymph # (Auto) (1.0-4.8) th/mm3 [place] # (Auto) (0.0-0.9) th/mm3 Eos # (Auto) (0.0-0.4) th/mm3 Baso # (Auto) (0.0-0.2) th/mm3 WBC Differential Differential Comment PT (9.8-11.6) sec INR Ratio Sodium (136-145) meq/L Potassium (3.5-5.1) meq/L Chloride (98-107) meq/L Carbon Dioxide (21.0-32.0) meq/L Anion Gap (5-15) meq/L BUN (7-18) mg/dL Creatinine (0.60-1.30) mg/dL Estimated GFR (>89) mL/min Random Glucose (74-106) mg/dL Calcium (8.5-10.1) mg/dL Magnesium (1.5-2.5) mg/dL Total Bilirubin (0.2-1.0) mg/dL AST (15-37) U/L ALT (12-78) U/L Alkaline Phosphatase (45-117) U/L Total Creatine Kinase (39-308) U/L CK-MB (CK-2) (0.5-3.6) ng/mL Troponin I (0.02-0.05) ng/mL B-Natriuretic Peptide 2196 H (0-100) pg/mL Total Protein (6.4-8.2) g/dL Albumin (3.4-5.0) g/dL Lipase (73-393) U/L Imaging Data Radiologist's impression: Chest X-Ray 09/18/18 15:35 CONCLUSION: Right lung base density above the hemidiaphragm possibly pleural effusion not present previously, however could be technical. ECG Data Attestation: I personally reviewed and interpreted this ECG as follows: Interpretation: Rate: 96 BPM Rhythm: Sinus Schaller: Left Intervals: Normal intervals, no blocks, QTc 427 ms Q waves: III, aVF, V2 T waves: Inverted in I and aVL, flattened in V2, V4-V6 ST segments: No elevations or depressions Impression: No significant changes as compared to EKG from 08/07/2018. Discharge Plan Physicians Team ED Provider: Zunilda John Primary Care Provider: Primary Care Yoli Phan Rxs /Orders / Referrals /Forms Prescriptions: No Action insulin aspart U-100 [Novolog Flexpen U-100 Insulin] 100 unit/mL Insulin Pen 18 unit SUB-Q BID RF: 0 atorvastatin [Lipitor] 10 mg Tablet 10 mg PO HS RF: 0 lisinopril 5 mg Tablet 5 mg PO DAILY RF: 0 sucralfate [Carafate] 1 gram tablet 1 g PO Q6H Qty: 120 RF: 0 pantoprazole [Protonix] 40 mg tablet,delayed release (DR/EC) 40 mg PO DAILY Qty: 30 RF: 0 furosemide [Lasix] 20 mg tablet 20 mg PO BID RF: 0 Discharge Interventions Interventions: Vital Signs Last Done: 09/18/18 15:22 Status ED Status: Admitted Observation Patient
--- NOTE | 2018-09-18 15:57 | XR ---
EXAM DATE: 09/18/2018 3:47 PM EST AGE/SEX: 53 years / Male INDICATIONS: Chest pain. CLINICAL DATA: This is the patient's initial encounter. Patient reports that signs and symptoms have been present for 2 days and indicates a pain score of 10/10. MEDICAL/SURGICAL HISTORY: Cardiovascular disease. Congestive heart failure. Pacemaker. COMPARISON: [facility] [place], CHEST 1V SINGLE AP, 08/07/2018. . FINDINGS: There is mild increased density above the right cardiophrenic angle which is obscured not present pre viously possibly technical. The rest of the examination has not changed. CONCLUSION: Right lung base density above the hemidiaphragm possibly pleural effusion not present previously, how ever could be technical. Electronically signed by: Greg Mccall MD 09/18/2018 3:56 PM EST
[2018-09-18 15:58] LABS: Baso % (Auto) 0.7 % (0.0-2.0); Eos # (Auto) 0.2 th/mm3 (0.0-0.4); Eos % (Auto) 5.8 % (0.0-4.0); Hematocrit 30.4 % (39.0-51.0); Hemoglobin 9.4 gm/dL (13.0-17.0); Lymph # (Auto) 0.7 th/mm3 (1.0-4.8); Lymph % (Auto) 16.4 % (9.0-44.0); Mean Corpuscular HGB Conc 31.1 % (32.0-36.0); Mean Corpuscular Hemoglobin 21.2 pg (27.0-34.0); Mean Corpuscular Volume 68.1 fL (80.0-100.0); Mean Platelet Volume 8.3 fL (7.0-11.0); Mono # (Auto) 0.4 th/mm3 (0.0-0.9); Mono % (Auto) 9.7 % (0.0-8.0); Neut # (Auto) 2.9 th/mm3 (1.8-7.7); Neut % (Auto) 67.4 % (16.0-70.0); Platelet Count 110 th/mm3 (150-450); Red Blood Count 4.46 mil/mm3 (4.50-5.90); Red Cell Distribution Width 20.4 % (11.6-17.2); White Blood Count 4.2 th/mm3 (4.0-11.0)
[2018-09-18 16:02] LABS: INR 1.4 Ratio
[2018-09-18 16:17] LABS: Alanine Aminotransferase 24 U/L (12-78); Albumin 2.9 g/dL (3.4-5.0); Anion Gap 11 meq/L (5-15); Aspartate Aminotransferase 41 U/L (15-37); Blood Urea Nitrogen 19 mg/dL (7-18); Calcium 8.2 mg/dL (8.5-10.1); Carbon Dioxide 19.7 meq/L (21.0-32.0); Chloride 106 meq/L (98-107); Glomerular Filtration Rate 61 mL/min (>89); Glucose,Random 141 mg/dL (74-106); Lipase 104 U/L (73-393); Magnesium 1.8 mg/dL (1.5-2.5); Potassium 3.4 meq/L (3.5-5.1); Sodium 137 meq/L (136-145)
[2018-09-18 16:22] LABS: Alkaline Phosphatase 211 U/L (45-117); Creatine Kinase 270 U/L (39-308); Total Protein 8.7 g/dL (6.4-8.2); Troponin I 0.04 ng/mL (0.02-0.05)
[2018-09-18 16:34] LABS: Creatine Kinase MB 6.5 ng/mL (0.5-3.6)
[2018-09-18] MEDS ORDERED: Potassium Chlor 20 mEq Premix 20 MEQ/100 ML PIGGYBACK IV.SIG ONE (16:46)
[2018-09-18] MEDS ORDERED: Mag Sulf 1 gm/100 ml Premix 100 ML IV.SIG ONE (16:46)
[2018-09-18] MEDS ORDERED: Morphine Sulfate Inj 2 MG/ML Vial IV.PUSH ONE (16:49)
[2018-09-18 17:18] LABS: Bilirubin,Urine Negative (Negative); Clarity,Urine Clear (Clear); Color,Urine Yellow (Yellw/Straw); Glucose,Urine (UA) 50 mg/dL (Negative); Leukocyte Esterase,Urine Negative (Negative); Mucus,Urine Few /lpf (Occasional); Nitrite,Urine Negative (Negative); Specific Gravity,Urine 1.018 (1.002-1.035); Squamous Epithelial Cell,Urine <1 /hpf (0-5); Urobilinogen,Urine 4 or Greater mg/dL (Less than 2)
[2018-09-18] MEDS ORDERED: Bisacodyl 10 MG Supp RECTAL PRN (17:54)
--- NOTE | 2018-09-18 18:33 | P.HP ---
History of Present Illness Service: Hospitalist Primary Care Physician: No Primary Care Physician Chief Complaint: CHF exacerbation History of Present Illness: Patient is a 53-year-old male who presents to the emergency room after seeing his primary care doctor and recording a 40 pound weight gain. He has a past medical history of CHF, DM, hypertension, hyperlipidemia, GERD. He had a pacemaker placed in April 2018 and is currently on a heart transplant list. He does not follow with a local metal moulder's assistant due to a change in insurance, most recently saw Dr. Godfrey at [facility]. He reports an EF of 11% which is in line with echocardiogram done in January 2018 which indicated EF less than 20% and pulmonary artery pressure of 48. He is complaining of generalized edema primarily legs and scrotum. He is also extremely short of breath. No chest pain. He tells me that he has been taking his p.o. Lasix "a couple extra pills" but it has not been helping. denies any recent changes in diet or increases in fluid intake. Reports that he has been urinating normally and has had normal bowel movements. No nausea vomiting or diarrhea; no fever or chills. - Diagnosis (1) Acute exacerbation of CHF (congestive heart failure) (2) CHF (congestive heart failure) (3) Diabetes mellitus (4) Hypertension Review of Systems All other systems reviewed negative except as stated in HPI PMFSH - History History Provided By: Patient, Medical Record - Medical History Medical History: Medical History (Last Updated 09/18/18 @ 18:12 by CHRISTIAN Del Toro) Amputated toe CHF (congestive heart failure) Chest pain Diabetes Gastritis HTN (hypertension) Heart attack Heart transplant candidate Hyperlipidemia Lead poisoning Pacemaker - Surgical History Surgical History: Surgical History (Last Reviewed 09/18/18 @ 18:13 by CHRISTIAN Del Toro) H/O Spinal surgery H/O toe surgery History of surgery on arm - Family History Family History: Family History (Last Updated 09/18/18 @ 18:31 by CHRISTIAN Del Toro) Mother Diabetes Stented coronary artery Brother CHF (congestive heart failure) - Social History I have reviewed the patient's Social History: Yes - Tobacco History Second Hand Smoke Exposure: No Tobacco Use In Past 30 Days: No Smoking Status: Former smoker Tobacco Type: Cigarettes - Alcohol History How Often Do You Have a Drink Containing Alcohol: 2 to 3 times a week - Substance Use History Substance History: Active Abuse - Substance Use Type Marijuana Status: Active Route Used: By Mouth - Travel History Recent Travel in the [place] Within the Last 8 Weeks: No Recent Travel Out of the Country Within the Last 8 Weeks: No - Immunization History Tetanus Immunization: <5 Years Medications and Allergies Active Medications: Active Medications Al Hydroxide/Mg Hydroxide (Milk Of Magnesia Liq) 30 ml PO Q12H PRN PRN Reason: Mild Constipation Atorvastatin Calcium (Lipitor) 10 mg PO HS SHAKIRA Bisacodyl (Dulcolax Supp) 10 mg RECTAL DAILY PRN PRN Reason: SEVERE CONSITIPATION Furosemide (Lasix Inj) 40 mg IV.PUSH BID@0900,1800 SHAKIRA Potassium Chloride (Kcl 20 Meq Premix Inj) 20 meq in 100 mls @ 50 mls/hr IV.SIG ONCE ONE Stop: 09/18/18 18:45 Last Admin: 09/18/18 17:19 Dose: 50 mls/hr Lactulose (Lactulose Liq) 30 ml PO DAILY PRN PRN Reason: SEVERE CONSITIPATION Lisinopril (Prinivil) 5 mg PO DAILY SHAKIRA Pantoprazole Sodium (Protonix) 40 mg PO DAILY SHAKIRA Senna/Docusate Sodium (Mariam-Colace) 1 tab PO BID SHAKIRA Sennosides (Senokot) 17.2 mg PO Q12H PRN PRN Reason: Moderate Constipation Sodium Chloride (Ns Flush) 2 ml IV.FLUSH UNSCH PRN PRN Reason: FLUSH AFTER USING IV ACCESS Sucralfate (Carafate) 1 gm PO Q6H SHAKIRA Allergies Allergy/AdvReac Type Severity Reaction Status Date / Time amoxicillin Allergy Mild Hives Verified 09/18/18 15:20 oxycodone Allergy Mild Hives Verified 09/18/18 15:20 nitroglycerin AdvReac Vomiting Verified 09/18/18 15:20 Home Medications Medication Instructions Recorded Confirmed Type insulin aspart U-100 [Novolog 18 unit SUB-Q BID 07/13/18 09/18/18 History Flexpen U-100 Insulin] furosemide [Lasix] 20 mg PO BID 09/18/18 09/18/18 History Exam Vital signs: Vital Signs 09/18/18 14:36 09/18/18 15:22 Temperature 99.0 F Pulse Rate 100 H 95 H Respiratory Rate 20 19 Blood Pressure 125/85 128/75 Pulse Oximetry 100 100 Intake & Output 09/17/18 09/18/18 09/18/18 18:59 06:59 18:59 Weight 68.946 kg Narrative: GENERAL: Obese, well-developed adult male in no obvious distress. SKIN: Warm and dry. HEAD: Atraumatic. Normocephalic. CARDIOVASCULAR: Regular rate and rhythm. RESPIRATORY: No accessory muscle use. Diminished bases. Breath sounds equal bilaterally. GASTROINTESTINAL: Abdomen soft, non-tender, non-distended. Positive bowel sounds. MUSCULOSKELETAL: +2 pitting edema bilateral lower legs; scrotal edema. Bilateral toe amputations NEUROLOGICAL: Awake and alert. No obvious cranial nerve deficits. Motor grossly within normal limits. Normal speech. PSYCHIATRIC: Appropriate mood and affect; insight and judgment good. Results - Labs CBC & Chem 7: 09/18/18 15:42 09/18/18 15:42 Labs: Laboratory Results - last 24 hr 09/18/18 09/18/18 09/18/18 15:42 15:42 15:42 WBC 4.2 RBC 4.46 L Hgb 9.4 L Hct 30.4 L MCV 68.1 L MCH 21.2 L MCHC 31.1 L RDW 20.4 H Plt Count 110 L MPV 8.3 Neut % (Auto) 67.4 Lymph % (Auto) 16.4 [place] % (Auto) 9.7 H Eos % (Auto) 5.8 H Baso % (Auto) 0.7 Neut # (Auto) 2.9 Lymph # (Auto) 0.7 L [place] # (Auto) 0.4 Eos # (Auto) 0.2 Baso # (Auto) 0.0 WBC Differential . Differential Comment Auto diff final PT 14.0 H INR 1.4 Sodium 137 Potassium 3.4 L Chloride 106 Carbon Dioxide 19.7 L Anion Gap 11 BUN 19 H Creatinine 1.24 Estimated GFR 61 L Random Glucose 141 H Calcium 8.2 L Magnesium 1.8 Total Bilirubin 1.1 H AST 41 H ALT 24 Alkaline Phosphatase 211 H Total Creatine Kinase 270 CK-MB (CK-2) 6.5 H Troponin I 0.04 B-Natriuretic Peptide Total Protein 8.7 H Albumin 2.9 L Lipase 104 Urine Color Urine Clarity Urine pH Ur Specific [place] Urine Protein Urine Glucose (UA) Urine Ketones Urine Occult Blood Urine Nitrate Urine Bilirubin Urine Urobilinogen Ur Leukocyte Esterase Urine RBC Urine WBC Ur Squamous Epith Cells Urine Mucus Micro UA Comment Ur Microscopic Review Urine Culture Comments 09/18/18 09/18/18 15:42 16:25 WBC RBC Hgb Hct MCV MCH MCHC RDW Plt Count MPV Neut % (Auto) Lymph % (Auto) [place] % (Auto) Eos % (Auto) Baso % (Auto) Neut # (Auto) Lymph # (Auto) [place] # (Auto) Eos # (Auto) Baso # (Auto) WBC Differential Differential Comment PT INR Sodium Potassium Chloride Carbon Dioxide Anion Gap BUN Creatinine Estimated GFR Random Glucose Calcium Magnesium Total Bilirubin AST ALT Alkaline Phosphatase Total Creatine Kinase CK-MB (CK-2) Troponin I B-Natriuretic Peptide 2196 H Total Protein Albumin Lipase Urine Color Yellow Urine Clarity Clear Urine pH 6.0 Ur Specific [place] 1.018 Urine Protein 100 H Urine Glucose (UA) 50 Urine Ketones Negative Urine Occult Blood Negative Urine Nitrate Negative Urine Bilirubin Negative Urine Urobilinogen 4 or greater Ur Leukocyte Esterase Negative Urine RBC 1 Urine WBC 1 Ur Squamous Epith Cells <1 Urine Mucus Few H Micro UA Comment Culture not ind Ur Microscopic Review Not Reportable Urine Culture Comments Culture not ind - Imaging Impressions Chest X-Ray 09/18/18 15:35 CONCLUSION: Right lung base density above the hemidiaphragm possibly pleural effusion not present previously, however could be technical. Caprini VTE Risk Assessment Caprini VTE Risk Assessment: No/Low Risk (score <= 1) Caprini Risk Assessment Model: Point Value = 1 Point Value = 2 Point Value = 3 Point Value = 5 Age 41-60 Minor surgery BMI > 25 kg/m2 Swollen legs Varicose veins or History of unexplained or recurrent spontaneous Oral contraceptives or hormone replacement Sepsis (< 1 month) Serious lung disease, including pneumonia (< 1 month) Abnormal pulmonary function Acute myocardial infarction Congestive heart failure (< 1 month) History of inflammatory bowel disease Medical patient at bed rest Age 61-74 Arthroscopic surgery Major open surgery (> 45 min) Laparoscopic surgery (> 45 min) Malignancy Confined to bed (> 72 hours) Immobilizing plaster cast Central venous access Age >= 75 History of VTE Family history of VTE Factor V Leiden Prothrombin [id number] Lupus anticoagulant Anticardiolipin antibodies Elevated serum homocysteine Heparin-induced thrombocytopenia Other congenital or acquired thrombophilia Stroke (< 1 month) Elective arthroplasty Hip, pelvis, or leg fracture Acute spinal cord injury (< 1 month) Prophylaxis Regimen: Total Risk Factor Score Risk Level Prophylaxis Regimen 0-1 Low Early ambulation 2 Moderate Order ONE of the following: *Sequential Compression Device (SCD) *Heparin 5000 units SQ BID 3-4 Higher Order ONE of the following medications: *Heparin 5000 units SQ TID *Enoxaparin/Lovenox 40 mg SQ daily (WT < 150 kg, CrCl > 30 mL/min) *Enoxaparin/Lovenox 30 mg SQ daily (WT < 150 kg, CrCl > 10-29 mL/min) *Enoxaparin/Lovenox 30 mg SQ BID (WT < 150 kg, CrCl > 30 mL/min) AND/OR *Sequential Compression Device (SCD) 5 or more Highest Order ONE of the following medications: *Heparin 5000 units SQ TID (Preferred with Epidurals) *Enoxaparin/Lovenox 40 mg SQ daily (WT < 150 kg, CrCl > 30 mL/min) *Enoxaparin/Lovenox 30 mg SQ daily (WT < 150 kg, CrCl > 10-29 mL/min) *Enoxaparin/Lovenox 30 mg SQ BID (WT < 150 kg, CrCl > 30 mL/min) AND *Sequential Compression Device (SCD) Assessment and Plan - Assessment (1) Acute exacerbation of CHF (congestive heart failure) Code(s): I50.9 - Heart failure, unspecified Status: Acute (2) CHF (congestive heart failure) Code(s): I50.9 - Heart failure, unspecified Status: Chronic (3) Diabetes mellitus Code(s): E11.9 - Type 2 diabetes mellitus without complications Status: Chronic (4) Hypertension Code(s): I10 - Essential (primary) hypertension Status: Chronic - Plan Patient is a 53-year-old male with a past medical history of congestive heart failure, diabetes, hypertension, hyperlipidemia. He has a pacemaker and is currently being considered for heart transplant. He states his last EF was 11%. Presents to the emergency room after seeing primary care and recording a 40 pound weight gain. CHF exacerbation -IV Lasix -EKG ordered; trend troponins -Limit PO intake to 1.5L Electrolyte imbalance -Hypokalemia-given 20 M EQ's IV +40 M EQ's p.o. in ED -Monitor Diabetes -Sliding scale Hypertension -Continue home meds DVT prophylaxis: Discussed with: Patient and nurse Discharge planning: Likely home (2) CHF (congestive heart failure) Qualifiers: (3) Diabetes mellitus Qualifiers: (4) Hypertension Qualifiers:
[2018-09-18] MEDS ORDERED: Dextrose 50% in Water 50 ML Vial IV.PUSH PRN (18:43)
[2018-09-18] MEDS: Senna/Docusate Sodium 8.6/50 MG Tablet PO SCH (20:25)
[2018-09-18] MEDS: Sucralfate 1 GM Tablet PO SCH (20:27)
[2018-09-18] MEDS: Insulin NovoLOG Aspart Correctional Sugar Inj SQ SCH (21:42)
[2018-09-19 00:55] LABS: Creatine Kinase 196 U/L (39-308); Troponin I 0.03 ng/mL (0.02-0.05)
[2018-09-19] MEDS: Sucralfate 1 GM Tablet PO SCH ×5 (01:02→23:41)
[2018-09-19 01:07] LABS: Creatine Kinase MB 4.6 ng/mL (0.5-3.6)
[2018-09-19 02:55] LABS: Baso # (Auto) 0.1 th/mm3 (0.0-0.2); Baso % (Auto) 2.3 % (0.0-2.0); Eos # (Auto) 0.3 th/mm3 (0.0-0.4); Eos % (Auto) 6.6 % (0.0-4.0); Hematocrit 31.2 % (39.0-51.0); Hemoglobin 9.5 gm/dL (13.0-17.0); Lymph # (Auto) 0.9 th/mm3 (1.0-4.8); Lymph % (Auto) 22.2 % (9.0-44.0); Mean Corpuscular Hemoglobin 20.4 pg (27.0-34.0); Mean Corpuscular Volume 67.5 fL (80.0-100.0); Mean Platelet Volume 8.5 fL (7.0-11.0); Mono # (Auto) 0.5 th/mm3 (0.0-0.9); Mono % (Auto) 11.7 % (0.0-8.0); Neut # (Auto) 2.4 th/mm3 (1.8-7.7); Neut % (Auto) 57.2 % (16.0-70.0); Platelet Count 118 th/mm3 (150-450); Red Blood Count 4.63 mil/mm3 (4.50-5.90); White Blood Count 4.1 th/mm3 (4.0-11.0)
[2018-09-19 02:56] LABS: Mean Corpuscular HGB Conc 30.3 % (32.0-36.0)
[2018-09-19 03:17] LABS: Calcium 8.1 mg/dL (8.5-10.1); Magnesium 1.9 mg/dL (1.5-2.5); Potassium 3.7 meq/L (3.5-5.1)
[2018-09-19 03:21] LABS: Creatine Kinase 196 U/L (39-308); Troponin I 0.03 ng/mL (0.02-0.05)
[2018-09-19 03:33] LABS: Creatine Kinase MB 4.8 ng/mL (0.5-3.6)
[2018-09-19] MEDS: Insulin NovoLOG Aspart Correctional Sugar Inj SQ SCH ×4 (09:52→21:18)
[2018-09-19] MEDS: Senna/Docusate Sodium 8.6/50 MG Tablet PO SCH ×2 (09:55→21:28)
[2018-09-19] MEDS: Lisinopril 5 MG Tablet PO SCH (09:55)
--- NOTE | 2018-09-19 12:25 | P.PN ---
Subjective Interval history: Patient is seen lying in bed. He does complain of left-sided chest pain that is worse with inspiration. Also complains of generalized body aches. No dizziness or syncope. Continues to be short of breath. No nausea vomiting or diarrhea. He has been urinating without difficulty. Physical Exam Vital signs: Vital Signs 09/18/18 14:36 09/18/18 15:22 09/18/18 19:11 Temperature 99.0 F 98.4 F Pulse Rate 100 H 95 H 92 H Respiratory Rate 20 19 18 Blood Pressure 125/85 128/75 129/89 Pulse Oximetry 100 100 100 09/18/18 20:00 09/18/18 22:57 09/19/18 03:29 Temperature 98.1 F 98.2 F Pulse Rate 89 87 90 Respiratory Rate 18 18 Blood Pressure 116/84 124/87 Pulse Oximetry 100 98 09/19/18 07:45 09/19/18 08:00 09/19/18 08:38 Temperature 97.9 F Pulse Rate 88 94 H Respiratory Rate 16 Blood Pressure 143/94 H Pulse Oximetry 99 99 09/19/18 11:36 Temperature 97.7 F Pulse Rate 89 Respiratory Rate 16 Blood Pressure 115/68 Pulse Oximetry 99 Intake & Output 09/18/18 09/19/18 09/19/18 18:59 06:59 18:59 Intake Total 440 / 440 Output Total 725 / 725 Balance -285 / -285 Weight 68.946 kg 68.946 kg Intake: IV 200 / 200 Magnesium Sulfate 1 gm/D5W 100 100 / 100 ml Premix 100 ML @ 100 mls/hr IV.SIG ONCE ONE Rx#:[id number] KCl 20 mEq Premix Inj 20 meq In 100 / 100 100 ml @ 50 mls/hr IV.SIG ONCE ONE Rx#:[id number] Oral 240 / 240 Output: Urine 725 / 725 Other: Date of Last Bowel Movement 09/18/18 Weight On Admission 68.946 kg Narrative: GENERAL: Obese, well-developed adult male in no obvious distress. SKIN: Warm and dry. HEAD: Atraumatic. Normocephalic. CARDIOVASCULAR: Regular rate and rhythm. RESPIRATORY: No accessory muscle use. Diminished bases. Breath sounds equal bilaterally. GASTROINTESTINAL: Abdomen soft, non-tender, non-distended. Positive bowel sounds. MUSCULOSKELETAL: +2 pitting edema bilateral lower legs; scrotal edema. Bilateral toe amputations NEUROLOGICAL: Awake and alert. No obvious cranial nerve deficits. Motor grossly within normal limits. Normal speech. PSYCHIATRIC: Appropriate mood and affect; insight and judgment good. Results - Labs CBC & Chem 7: 09/19/18 02:43 09/19/18 02:43 Laboratory Results - last 24 hr 09/18/18 09/18/18 09/18/18 15:42 15:42 15:42 WBC 4.2 RBC 4.46 L Hgb 9.4 L Hct 30.4 L MCV 68.1 L MCH 21.2 L MCHC 31.1 L RDW 20.4 H Plt Count 110 L MPV 8.3 Neut % (Auto) 67.4 Lymph % (Auto) 16.4 [place] % (Auto) 9.7 H Eos % (Auto) 5.8 H Baso % (Auto) 0.7 Neut # (Auto) 2.9 Lymph # (Auto) 0.7 L [place] # (Auto) 0.4 Eos # (Auto) 0.2 Baso # (Auto) 0.0 WBC Differential . Differential Comment Auto diff final PT 14.0 H INR 1.4 Sodium 137 Potassium 3.4 L Chloride 106 Carbon Dioxide 19.7 L Anion Gap 11 BUN 19 H Creatinine 1.24 Estimated GFR 61 L POC Glucose Random Glucose 141 H Calcium 8.2 L Magnesium 1.8 Total Bilirubin 1.1 H AST 41 H ALT 24 Alkaline Phosphatase 211 H Total Creatine Kinase 270 CK-MB (CK-2) 6.5 H Troponin I 0.04 B-Natriuretic Peptide Total Protein 8.7 H Albumin 2.9 L Lipase 104 Urine Color Urine Clarity Urine pH Ur Specific [place] Urine Protein Urine Glucose (UA) Urine Ketones Urine Occult Blood Urine Nitrate Urine Bilirubin Urine Urobilinogen Ur Leukocyte Esterase Urine RBC Urine WBC Ur Squamous Epith Cells Urine Mucus Micro UA Comment Ur Microscopic Review Urine Culture Comments 09/18/18 09/18/18 09/18/18 15:42 16:25 20:24 WBC RBC Hgb Hct MCV MCH MCHC RDW Plt Count MPV Neut % (Auto) Lymph % (Auto) [place] % (Auto) Eos % (Auto) Baso % (Auto) Neut # (Auto) Lymph # (Auto) [place] # (Auto) Eos # (Auto) Baso # (Auto) WBC Differential Differential Comment PT INR Sodium Potassium Chloride Carbon Dioxide Anion Gap BUN Creatinine Estimated GFR POC Glucose 108 Random Glucose Calcium Magnesium Total Bilirubin AST ALT Alkaline Phosphatase Total Creatine Kinase CK-MB (CK-2) Troponin I B-Natriuretic Peptide 2196 H Total Protein Albumin Lipase Urine Color Yellow Urine Clarity Clear Urine pH 6.0 Ur Specific [place] 1.018 Urine Protein 100 H Urine Glucose (UA) 50 Urine Ketones Negative Urine Occult Blood Negative Urine Nitrate Negative Urine Bilirubin Negative Urine Urobilinogen 4 or greater Ur Leukocyte Esterase Negative Urine RBC 1 Urine WBC 1 Ur Squamous Epith Cells <1 Urine Mucus Few H Micro UA Comment Culture not ind Ur Microscopic Review Not Reportable Urine Culture Comments Culture not ind 09/18/18 09/19/18 09/19/18 21:49 00:04 02:43 WBC RBC Hgb Hct MCV MCH MCHC RDW Plt Count MPV Neut % (Auto) Lymph % (Auto) [place] % (Auto) Eos % (Auto) Baso % (Auto) Neut # (Auto) Lymph # (Auto) [place] # (Auto) Eos # (Auto) Baso # (Auto) WBC Differential Differential Comment PT INR Sodium Potassium Chloride Carbon Dioxide Anion Gap BUN Creatinine Estimated GFR POC Glucose 174 H Random Glucose Calcium Magnesium Total Bilirubin AST ALT Alkaline Phosphatase Total Creatine Kinase 196 196 CK-MB (CK-2) 4.6 H 4.8 H Troponin I 0.03 0.03 B-Natriuretic Peptide Total Protein Albumin Lipase Urine Color Urine Clarity Urine pH Ur Specific [place] Urine Protein Urine Glucose (UA) Urine Ketones Urine Occult Blood Urine Nitrate Urine Bilirubin Urine Urobilinogen Ur Leukocyte Esterase Urine RBC Urine WBC Ur Squamous Epith Cells Urine Mucus Micro UA Comment Ur Microscopic Review Urine Culture Comments 09/19/18 09/19/18 02:43 02:43 WBC 4.1 RBC 4.63 Hgb 9.5 L Hct 31.2 L MCV 67.5 L MCH 20.4 L MCHC 30.3 L RDW 20.0 H Plt Count 118 L MPV 8.5 Neut % (Auto) 57.2 Lymph % (Auto) 22.2 [place] % (Auto) 11.7 H Eos % (Auto) 6.6 H Baso % (Auto) 2.3 H Neut # (Auto) 2.4 Lymph # (Auto) 0.9 L [place] # (Auto) 0.5 Eos # (Auto) 0.3 Baso # (Auto) 0.1 WBC Differential . Differential Comment Auto diff final PT INR Sodium 139 Potassium 3.7 Chloride 108 H Carbon Dioxide 23.0 Anion Gap 8 BUN 19 H Creatinine 1.17 Estimated GFR 65 L POC Glucose Random Glucose 74 Calcium 8.1 L Magnesium 1.9 Total Bilirubin AST ALT Alkaline Phosphatase Total Creatine Kinase CK-MB (CK-2) Troponin I B-Natriuretic Peptide Total Protein Albumin Lipase Urine Color Urine Clarity Urine pH Ur Specific [place] Urine Protein Urine Glucose (UA) Urine Ketones Urine Occult Blood Urine Nitrate Urine Bilirubin Urine Urobilinogen Ur Leukocyte Esterase Urine RBC Urine WBC Ur Squamous Epith Cells Urine Mucus Micro UA Comment Ur Microscopic Review Urine Culture Comments - Imaging Impressions Chest X-Ray 09/18/18 15:35 CONCLUSION: Right lung base density above the hemidiaphragm possibly pleural effusion not present previously, however could be technical. Assessment and Plan - Assessment (1) Acute exacerbation of CHF (congestive heart failure) Code(s): I50.9 - Heart failure, unspecified Status: Acute (2) CHF (congestive heart failure) Code(s): I50.9 - Heart failure, unspecified Status: Chronic (3) Diabetes mellitus Code(s): E11.9 - Type 2 diabetes mellitus without complications Status: Chronic (4) Hypertension Code(s): I10 - Essential (primary) hypertension Status: Chronic - Plan Patient is a 53-year-old male with a past medical history of congestive heart failure, diabetes, hypertension, hyperlipidemia. He has a pacemaker and is currently being considered for heart transplant. He states his last EF was 11%. Presents to the emergency room after seeing primary care and recording a 40 pound weight gain. CHF exacerbation -IV Lasix -EKG ordered; trend troponins -Limit PO intake to 1.5L -Consult to cardiology; appreciate assistance. Patient does not follow outpatient. Electrolyte imbalance -Hypokalemia-given 20 M EQ's IV +40 M EQ's p.o. in ED; improved -Monitor Diabetes -Sliding scale Hypertension -Continue home meds DVT prophylaxis: SCDs and ambulation Discussed with: Patient and nurse Discharge planning: Likely home (2) CHF (congestive heart failure) Qualifiers: (3) Diabetes mellitus Qualifiers: (4) Hypertension Qualifiers:
--- NOTE | 2018-09-19 13:11 | XR ---
EXAM DATE: 09/19/2018 1:05 PM EST AGE/SEX: 53 years / Male INDICATIONS: Chest pain. CLINICAL DATA: This is the patient's initial encounter. Patient reports that signs and symptoms have been present for 2 days and indicates a pain score of 8/10. MEDICAL/SURGICAL HISTORY: Congestive heart failure. Hypertension. Diabetes mellitus type II. Pacemaker. COMPARISON: C, CHEST 1V SINGLE AP, 09/18/2018. . FINDINGS: Stable single lead AICD device. Cardiac silhouette is enlarged with diffuse interstitial prominence. Progressive patchy airspace disease in the right lower lung zone. Suspect trace right-sided pleural e ffusion as well. Remainder of the exam is unchanged. CONCLUSION: 1. Cardiomegaly with mild positive fluid balance. 2. Worsening right lower lobe patchy airspace disease and likely trace right pleural effusion. Electronically signed by: Dl Mazariegos MD 09/19/2018 1:10 PM EST
--- NOTE | 2018-09-19 14:54 | P.CONCA ---
History of Present Illness Service: cardiology Consult date: 09/19/18 Reason for Consult: acute on chronic CHF Primary Care Provider: No Primary Care Physician Chief Complaint: CHF exacerbation History of Present Illness: 53 yo male with known cardiomyopathy EF <20% (ICD placed earlier this year at [facility]), CHF, PAD (s/p bilateral toe amputations), DMII, HTN and HLD who presented to his PCP yesterday with 30 pound weight gain in the past ~1 week with associated exertional dyspnea. He was directed to the ED where CXR shows mild-moderate fluid overload; EKG is nonischemic and troponin levels x 2 are negative. Labs show elevated BNP of 2000, low Hgb 9 which appears stable from previous visits. His home medications include lasix 80mg, lisinopril 5mg and asa. 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 He reports being on a heart transplant list in [place]. Last echo 01/2018 shows reduced EF <20%. Cardiac catheterization in 2016 demonstrated mild CAD. He denies chest pain, LE edema or palpitations. Exertional dyspnea is improving with diuresis. Currently resting comfortably Review of Systems All other systems reviewed negative except as stated in HPI PMFSH - History History Provided By: Patient - Medical History Medical History: Medical History (Last Updated 09/18/18 @ 18:12 by CHRISTIAN Del Toro) Amputated toe CHF (congestive heart failure) Chest pain Diabetes Gastritis HTN (hypertension) Heart attack Heart transplant candidate Hyperlipidemia Lead poisoning Pacemaker - Surgical History Surgical History: Surgical History (Last Reviewed 09/18/18 @ 18:13 by CHRISTIAN Del Toro) H/O Spinal surgery H/O toe surgery History of surgery on arm - Family History Family History: Family History (Last Updated 09/18/18 @ 18:31 by CHRISTIAN Del Toro) Mother Diabetes Stented coronary artery Brother CHF (congestive heart failure) - Tobacco History Second Hand Smoke Exposure: No Tobacco Use In Past 30 Days: No Smoking Status: Former smoker Tobacco Type: Cigarettes - Alcohol History How Often Do You Have a Drink Containing Alcohol: Monthly or less - Substance Use History Substance History: No History of Abuse - Substance Use Type Marijuana Status: Active Route Used: By Mouth - Travel History Recent Travel in the [place] Within the Last 8 Weeks: No Recent Travel Out of the Country Within the Last 8 Weeks: No - Immunization History Tetanus Immunization: <5 Years Medications and Allergies Allergies Allergy/AdvReac Type Severity Reaction Status Date / Time amoxicillin Allergy Mild Hives Verified 09/18/18 15:20 oxycodone Allergy Mild Hives Verified 09/18/18 15:20 nitroglycerin AdvReac Vomiting Verified 09/18/18 15:20 Home Medications Medication Instructions Recorded Confirmed Type insulin aspart U-100 [Novolog 18 unit SUB-Q BID 07/13/18 09/18/18 History Flexpen U-100 Insulin] furosemide [Lasix] 20 mg PO BID 09/18/18 09/18/18 History Active Medications: Active Medications Hydrocodone Bitart/Acetaminophen ([place] 5/325) 1 tab PO Q4H PRN PRN Reason: pain 1 to 10 Last Admin: 09/19/18 14:36 Dose: 1 tab Al Hydroxide/Mg Hydroxide (Milk Of Magnesia Liq) 30 ml PO Q12H PRN PRN Reason: Mild Constipation Atorvastatin Calcium (Lipitor) 10 mg PO HS [facility] Last Admin: 09/18/18 20:25 Dose: 10 mg Bisacodyl (Dulcolax Supp) 10 mg RECTAL DAILY PRN PRN Reason: SEVERE CONSITIPATION Dextrose (D50w Vial) 50 ml IV.PUSH UNSCH PRN PRN Reason: PER HYPOGLYCEMIA PROTOCOL Furosemide (Lasix Inj) 40 mg IV.PUSH BID@0900,1800 [facility] Last Admin: 09/19/18 09:54 Dose: 40 mg Glucagon (Glucagon Inj) 1 mg OTHER PRN PRN PRN Reason: for Hypoglycemia Protocol Insulin Aspart (Novolog Inj) 18 units SQ BID [facility] Last Admin: 09/19/18 09:55 Dose: 18 units Insulin Aspart (Novolog Insulin Correctional Sugar Inj) 0 unit SQ ACHS [facility]; Protocol Last Admin: 09/19/18 12:43 Dose: Not Given Lactulose (Lactulose Liq) 30 ml PO DAILY PRN PRN Reason: SEVERE CONSITIPATION Lisinopril (Prinivil) 5 mg PO DAILY [facility] Last Admin: 09/19/18 09:55 Dose: 5 mg Pantoprazole Sodium (Protonix) 40 mg PO DAILY [facility] Last Admin: 09/19/18 09:55 Dose: 40 mg Senna/Docusate Sodium (Mariam-Colace) 1 tab PO BID [facility] Last Admin: 09/19/18 09:55 Dose: 1 tab Sennosides (Senokot) 17.2 mg PO Q12H PRN PRN Reason: Moderate Constipation Sodium Chloride (Ns Flush) 2 ml IV.FLUSH UNSCH PRN PRN Reason: FLUSH AFTER USING IV ACCESS Sucralfate (Carafate) 1 gm PO Q6HR [facility] Last Admin: 09/19/18 12:37 Dose: 1 gm Tramadol HCl (Ultram) 50 mg PO Q8H PRN PRN Reason: PAIN SCALE 1 TO 10 Exam Vital signs: Vital Signs 09/18/18 15:22 09/18/18 19:11 09/18/18 20:00 Temperature 98.4 F Pulse Rate 95 H 92 H 89 Respiratory Rate 19 18 Blood Pressure 128/75 129/89 Pulse Oximetry 100 100 09/18/18 22:57 09/19/18 03:29 09/19/18 07:45 Temperature 98.1 F 98.2 F 97.9 F Pulse Rate 87 90 88 Respiratory Rate 18 18 16 Blood Pressure 116/84 124/87 143/94 H Pulse Oximetry 100 98 99 09/19/18 08:00 09/19/18 08:38 09/19/18 11:36 Temperature 97.7 F Pulse Rate 94 H 89 Respiratory Rate 16 Blood Pressure 115/68 Pulse Oximetry 99 99 Intake & Output 09/18/18 09/19/18 09/19/18 18:59 06:59 18:59 Intake Total 440 / 440 Output Total 725 / 725 Balance -285 / -285 Weight 68.946 kg 68.946 kg Intake: IV 200 / 200 Magnesium Sulfate 1 gm/D5W 100 100 / 100 ml Premix 100 ML @ 100 mls/hr IV.SIG ONCE ONE Rx#:[id number] KCl 20 mEq Premix Inj 20 meq In 100 / 100 100 ml @ 50 mls/hr IV.SIG ONCE ONE Rx#:[id number] Oral 240 / 240 Output: Urine 725 / 725 Other: Date of Last Bowel Movement 09/18/18 Weight On Admission 68.946 kg Narrative: GENERAL: SKIN: Warm and dry. HEAD: Normocephalic. EYES: No scleral icterus. No injection or drainage. NECK: Supple, trachea midline. or lymphadenopathy. CARDIOVASCULAR: Regular rate and rhythm without murmurs, gallops, or rubs. RESPIRATORY: Breath sounds equal bilaterally. No accessory muscle use. GASTROINTESTINAL: Abdomen soft, non-tender, distended MUSCULOSKELETAL: No cyanosis, or edema. bilateral toe amputations Results 09/19/18 02:43 09/19/18 02:43 Cardiac Enzymes 09/18/18 09/18/18 09/19/18 Range/Units 15:42 15:42 00:04 AST 41 H (15-37) U/L CK-MB (CK-2) 6.5 H 4.6 H (0.5-3.6) ng/mL Troponin I 0.04 0.03 (0.02-0.05) ng/mL B-Natriuretic Peptide 2196 H (0-100) pg/mL 09/19/18 Range/Units 02:43 AST (15-37) U/L CK-MB (CK-2) 4.8 H (0.5-3.6) ng/mL Troponin I 0.03 (0.02-0.05) ng/mL B-Natriuretic Peptide (0-100) pg/mL Coagulation 09/18/18 09/18/18 Range/Units 15:42 15:42 PT 14.0 H (9.8-11.6) sec B-Natriuretic Peptide 2196 H (0-100) pg/mL CBC 09/18/18 09/19/18 Range/Units 15:42 02:43 WBC 4.2 4.1 (4.0-11.0) th/mm3 RBC 4.46 L 4.63 (4.50-5.90) mil/mm3 Hgb 9.4 L 9.5 L (13.0-17.0) gm/dL Hct 30.4 L 31.2 L (39.0-51.0) % Plt Count 110 L 118 L (150-450) th/mm3 Neut # (Auto) 2.9 2.4 (1.8-7.7) th/mm3 Lymph # (Auto) 0.7 L 0.9 L (1.0-4.8) th/mm3 [place] # (Auto) 0.4 0.5 (0.0-0.9) th/mm3 Eos # (Auto) 0.2 0.3 (0.0-0.4) th/mm3 Baso # (Auto) 0.0 0.1 (0.0-0.2) th/mm3 Comprehensive Metabolic Panel 09/18/18 09/19/18 Range/Units 15:42 02:43 Sodium 137 139 (136-145) meq/L Potassium 3.4 L 3.7 (3.5-5.1) meq/L Chloride 106 108 H (98-107) meq/L Carbon Dioxide 19.7 L 23.0 (21.0-32.0) meq/L BUN 19 H 19 H (7-18) mg/dL Creatinine 1.24 1.17 (0.60-1.30) mg/dL Calcium 8.2 L 8.1 L (8.5-10.1) mg/dL AST 41 H (15-37) U/L ALT 24 (12-78) U/L Alkaline Phosphatase 211 H (45-117) U/L Total Protein 8.7 H (6.4-8.2) g/dL Albumin 2.9 L (3.4-5.0) g/dL Intake and Output 09/18/18 09/19/18 09/19/18 22:59 06:59 14:59 Intake Total 200 / 200 240 / 240 Output Total 725 / 725 Balance 200 / 200 -485 / -485 Intake: IV 200 / 200 Magnesium Sulfate 1 gm/D5W 100 100 / 100 ml Premix 100 ML @ 100 mls/hr IV.SIG ONCE ONE Rx#:[id number] KCl 20 mEq Premix Inj 20 meq In 100 / 100 100 ml @ 50 mls/hr IV.SIG ONCE ONE Rx#:[id number] Oral 240 / 240 Output: Urine 725 / 725 Other: Date of Last Bowel Movement 09/18/18 Weight 68.946 kg Weight On Admission 68.946 kg - Imaging and Cardiology Imaging: Impressions Chest X-Ray 09/18/18 15:35 CONCLUSION: Right lung base density above the hemidiaphragm possibly pleural effusion not present previously, however could be technical. Chest X-Ray 09/19/18 00:00 CONCLUSION: 1. Cardiomegaly with mild positive fluid balance. 2. Worsening right lower lobe patchy airspace disease and likely trace right pleural effusion. Assessment and Plan - Assessment (1) CHF (congestive heart failure) Code(s): I50.9 - Heart failure, unspecified Status: Chronic - Plan 53 yo male with known cardiomyopathy EF <20% (ICD placed earlier this year at [facility]), CHF, PAD (s/p bilateral toe amputations), DMII, HTN and HLD who presented to his PCP yesterday with 30 pound weight gain in the past ~1 week with associated exertional dyspnea. He was directed to the ED where CXR shows mild-moderate fluid overload; EKG is nonischemic and troponin levels x 2 are negative. Labs show elevated BNP of 2000, low Hgb 9 which appears stable from previous visits. His home medications include lasix 80mg, lisinopril 5mg and asa. 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 He reports being on a heart transplant list in [place]. Last echo 01/2018 shows reduced EF <20%. Cardiac catheterization in 2016 demonstrated mild CAD. He denies chest pain, LE edema or palpitations. Exertional dyspnea is improving with diuresis. Currently resting comfortably. acute on chronic CHF- cont diuresis with IV lasix 40mg BID, monitor I's/O's and creatinine closely. cont lisinopril and atorvastatin consider addition of carvedilol is SBP will allow check updated 2D echo - Attending Attestation agree with above (1) CHF (congestive heart failure) Qualifiers:
--- NOTE | 2018-09-19 16:11 | ECG ---
Date Performed: 09/18/2018 Time Performed: 15:25:03 PTAGE: 53 years EKG: Sinus rhythm WITH OCCASIONAL VENTRICULAR PREMATURE COMPLEXES MARKED LEFT AXIS DEVIATION PATTERN CONSISTENT WITH P ULMONARY DISEASE ABNORMAL QRS-T ANGLE Since previous tracing, no significant change noted ABNORMAL EC G PREVIOUS TRACING : 08/07/2018 22.24 DOCTOR: Amina Gibbs Interpretating Date/Time 09/19/2018 16:09:56
[2018-09-19] MEDS: levoFLOXacin 750 MG Tablet PO SCH (17:48)
[2018-09-20] MEDS: Sucralfate 1 GM Tablet PO SCH ×3 (05:26→17:23)
[2018-09-20 07:42] LABS: Alanine Aminotransferase 19 U/L (12-78); Albumin 2.3 g/dL (3.4-5.0); Alkaline Phosphatase 171 U/L (45-117); Anion Gap 8 meq/L (5-15); Aspartate Aminotransferase 32 U/L (15-37); Blood Urea Nitrogen 17 mg/dL (7-18); Calcium 7.7 mg/dL (8.5-10.1); Carbon Dioxide 24.8 meq/L (21.0-32.0); Chloride 106 meq/L (98-107); Glomerular Filtration Rate 64 mL/min (>89); Glucose,Random 90 mg/dL (74-106); Magnesium 1.8 mg/dL (1.5-2.5); Potassium 4.3 meq/L (3.5-5.1); Sodium 139 meq/L (136-145); Total Protein 7.2 g/dL (6.4-8.2)
--- NOTE | 2018-09-20 08:31 | P.PNCA ---
Subjective Interval history: feeling much better. edema and dyspnea improved. He reports good diuresis. mild chest discomfort overnight with hypoglycemia after insulin dose. echo planned for today. Medications and Allergies Allergies Allergy/AdvReac Type Severity Reaction Status Date / Time amoxicillin Allergy Mild Hives Verified 09/18/18 15:20 oxycodone Allergy Mild Hives Verified 09/18/18 15:20 nitroglycerin AdvReac Vomiting Verified 09/18/18 15:20 Home Medications Medication Instructions Recorded Confirmed Type insulin aspart U-100 [Novolog 18 unit SUB-Q BID 07/13/18 09/18/18 History Flexpen U-100 Insulin] furosemide [Lasix] 20 mg PO BID 09/18/18 09/18/18 History Active Medications: Active Medications Hydrocodone Bitart/Acetaminophen ([place] 5/325) 1 tab PO Q4H PRN PRN Reason: pain 1 to 10 Last Admin: 09/20/18 05:26 Dose: 1 tab Al Hydroxide/Mg Hydroxide (Milk Of Magnesia Liq) 30 ml PO Q12H PRN PRN Reason: Mild Constipation Atorvastatin Calcium (Lipitor) 10 mg PO [facility] Last Admin: 09/19/18 21:28 Dose: 10 mg Bisacodyl (Dulcolax Supp) 10 mg RECTAL DAILY PRN PRN Reason: SEVERE CONSITIPATION Dextrose (D50w Vial) 50 ml IV.PUSH UNSCH PRN PRN Reason: PER HYPOGLYCEMIA PROTOCOL Furosemide (Lasix Inj) 40 mg IV.PUSH BID@0900,1800 [facility] Last Admin: 09/19/18 17:48 Dose: 40 mg Glucagon (Glucagon Inj) 1 mg OTHER PRN PRN PRN Reason: for Hypoglycemia Protocol Insulin Aspart (Novolog Inj) 18 units SQ BID [facility] Last Admin: 09/19/18 21:26 Dose: 18 units Insulin Aspart (Novolog Insulin Correctional Sugar Inj) 0 unit SQ ACHS [facility]; Protocol Last Admin: 09/19/18 21:18 Dose: Not Given Lactulose (Lactulose Liq) 30 ml PO DAILY PRN PRN Reason: SEVERE CONSITIPATION Levofloxacin (Levaquin) 750 mg PO DAILY [facility] Stop: 09/25/18 23:59 Last Admin: 09/19/18 17:48 Dose: 750 mg Lisinopril (Prinivil) 5 mg PO DAILY [facility] Last Admin: 09/19/18 09:55 Dose: 5 mg Pantoprazole Sodium (Protonix) 40 mg PO DAILY [facility] Last Admin: 09/19/18 09:55 Dose: 40 mg Senna/Docusate Sodium (Mariam-Colace) 1 tab PO BID [facility] Last Admin: 09/19/18 21:28 Dose: 1 tab Sennosides (Senokot) 17.2 mg PO Q12H PRN PRN Reason: Moderate Constipation Sodium Chloride (Ns Flush) 2 ml IV.FLUSH UNSCH PRN PRN Reason: FLUSH AFTER USING IV ACCESS Sucralfate (Carafate) 1 gm PO Q6HR [facility] Last Admin: 09/20/18 05:26 Dose: 1 gm Tramadol HCl (Ultram) 50 mg PO Q8H PRN PRN Reason: PAIN SCALE 1 TO 10 Physical Exam Vital signs: Vital Signs 09/19/18 08:38 09/19/18 11:36 09/19/18 16:00 Temperature 97.7 F 97.9 F Pulse Rate 89 80 Respiratory Rate 16 18 Blood Pressure 115/68 122/75 Pulse Oximetry 99 99 99 09/19/18 19:20 09/19/18 20:00 09/19/18 23:53 Temperature 98.2 F Pulse Rate 55 L 83 99 H Respiratory Rate 18 20 Blood Pressure 113/74 157/80 H Pulse Oximetry 100 99 99 09/20/18 03:41 09/20/18 07:41 Temperature 97.6 F 98.1 F Pulse Rate 81 85 Respiratory Rate 18 18 Blood Pressure 100/66 125/83 Pulse Oximetry 99 100 Intake & Output 09/19/18 09/20/18 09/20/18 18:59 06:59 18:59 Other: # Voids 3 3 Narrative: GENERAL: SKIN: Warm and dry. HEAD: Normocephalic. EYES: No scleral icterus. No injection or drainage. NECK: Supple, trachea midline. or lymphadenopathy. CARDIOVASCULAR: Regular rate and rhythm without murmurs, gallops, or rubs. RESPIRATORY: Breath sounds equal bilaterally. No accessory muscle use. GASTROINTESTINAL: Abdomen soft, non-tender, distended MUSCULOSKELETAL: No cyanosis, or edema. bilateral toe amputations Results 09/19/18 02:43 09/20/18 06:22 Cardiac Enzymes 09/18/18 09/18/18 09/19/18 Range/Units 15:42 15:42 00:04 AST 41 H (15-37) U/L CK-MB (CK-2) 6.5 H 4.6 H (0.5-3.6) ng/mL Troponin I 0.04 0.03 (0.02-0.05) ng/mL B-Natriuretic Peptide 2196 H (0-100) pg/mL 09/19/18 09/20/18 09/20/18 Range/Units 02:43 06:22 06:22 AST 32 (15-37) U/L CK-MB (CK-2) 4.8 H (0.5-3.6) ng/mL Troponin I 0.03 (0.02-0.05) ng/mL B-Natriuretic Peptide 1775 H (0-100) pg/mL Coagulation 09/18/18 09/18/18 09/20/18 Range/Units 15:42 15:42 06:22 PT 14.0 H (9.8-11.6) sec B-Natriuretic Peptide 2196 H 1775 H (0-100) pg/mL CBC 09/18/18 09/19/18 Range/Units 15:42 02:43 WBC 4.2 4.1 (4.0-11.0) th/mm3 RBC 4.46 L 4.63 (4.50-5.90) mil/mm3 Hgb 9.4 L 9.5 L (13.0-17.0) gm/dL Hct 30.4 L 31.2 L (39.0-51.0) % Plt Count 110 L 118 L (150-450) th/mm3 Neut # (Auto) 2.9 2.4 (1.8-7.7) th/mm3 Lymph # (Auto) 0.7 L 0.9 L (1.0-4.8) th/mm3 [place] # (Auto) 0.4 0.5 (0.0-0.9) th/mm3 Eos # (Auto) 0.2 0.3 (0.0-0.4) th/mm3 Baso # (Auto) 0.0 0.1 (0.0-0.2) th/mm3 Comprehensive Metabolic Panel 09/18/18 09/19/18 09/20/18 Range/Units 15:42 02:43 06:22 Sodium 137 139 139 (136-145) meq/L Potassium 3.4 L 3.7 4.3 (3.5-5.1) meq/L Chloride 106 108 H 106 (98-107) meq/L Carbon Dioxide 19.7 L 23.0 24.8 (21.0-32.0) meq/L BUN 19 H 19 H 17 (7-18) mg/dL Creatinine 1.24 1.17 1.18 (0.60-1.30) mg/dL Calcium 8.2 L 8.1 L 7.7 L (8.5-10.1) mg/dL AST 41 H 32 (15-37) U/L ALT 24 19 (12-78) U/L Alkaline Phosphatase 211 H 171 H (45-117) U/L Total Protein 8.7 H 7.2 D (6.4-8.2) g/dL Albumin 2.9 L 2.3 L D (3.4-5.0) g/dL Intake and Output 09/19/18 09/20/18 09/20/18 22:59 06:59 14:59 Other: # Voids 3 3 - Imaging and Cardiology Imaging: Impressions Chest X-Ray 09/18/18 15:35 CONCLUSION: Right lung base density above the hemidiaphragm possibly pleural effusion not present previously, however could be technical. Chest X-Ray 09/19/18 00:00 CONCLUSION: 1. Cardiomegaly with mild positive fluid balance. 2. Worsening right lower lobe patchy airspace disease and likely trace right pleural effusion. Assessment and Plan - Assessment (1) CHF (congestive heart failure) Code(s): I50.9 - Heart failure, unspecified Status: Chronic - Plan 53 yo male with known cardiomyopathy EF <20% (ICD placed earlier this year at [facility]), CHF, PAD (s/p bilateral toe amputations), DMII, HTN and HLD who presented to his PCP with 30 pound weight gain in the past ~1 week with associated exertional dyspnea. He was directed to the ED where CXR shows mild-moderate fluid overload; EKG is nonischemic and troponin levels negative. Labs show elevated BNP of 2000, low Hgb 9 which appears stable from previous visits. His home medications include lasix 80mg, lisinopril 5mg and asa. 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 He reports being on a heart transplant list in [place]. Last echo 01/2018 shows reduced EF <20%. Cardiac catheterization in 2016 demonstrated mild CAD. He denies chest pain, LE edema or palpitations. Exertional dyspnea is improving with diuresis. Currently resting comfortably. acute on chronic CHF- clinically improved cont diuresis with IV lasix 40mg BID, monitor I's/O's and creatinine closely. cont lisinopril and atorvastatin consider addition of carvedilol when SBP will allow 2D echo today weights daily to monitor diuresis - Attending Attestation Clinically improving Continue current diuretic dosing Monitor creatinine Hopeful for conversion to oral diuretic tomorrow. Add low-dose beta-archie Continue angiotensin-converting enzyme inhibitor (1) CHF (congestive heart failure) Qualifiers:
[2018-09-20] MEDS: Insulin NovoLOG Aspart Correctional Sugar Inj SQ SCH ×4 (08:38→22:17)
[2018-09-20] MEDS: Senna/Docusate Sodium 8.6/50 MG Tablet PO SCH ×2 (08:39→21:32)
[2018-09-20] MEDS: Lisinopril 5 MG Tablet PO SCH (08:39)
[2018-09-20] MEDS: levoFLOXacin 750 MG Tablet PO SCH (08:39)
--- NOTE | 2018-09-20 11:43 | ECHRPT ---
Indication: Cardiomyopathy, unspecified CONCLUSIONS Upper normal left ventricular size. Wall thickness is normal. The left ventricular systolic functio n is severely reduced with an estimated ejection fraction of 15%. Severe global hypokinesis. Mild mitral valve regurgitation. There is moderate tricuspid valve regurgitation. The estimated pulmonary arterial pressure is 55 mmHg. Trace aortic valve regurgitation. BP: / HR: Rhythm: Sinus MEASUREMENTS (Male / Female) Normal Values Technical Quality:Good 2D ECHO LV Diastolic Diameter PLAX 5.1 cm 4.2 - 5.9 / 3.9 - 5.3 cm LV Systolic Diameter PLAX 4.7 cm IVS Diastolic Thickness 1.0 cm 0.6 - 1.0 / 0.6 - 0.9 cm LVPW Diastolic Thickness 1.0 cm 0.6 - 1.0 / 0.6 - 0.9 cm LV Relative Wall Thickness 0.4 LVOT Diameter 1.9 cm M-MODE Aortic Root Diameter MM 2.8 cm LA Systolic Diameter MM 4.3 cm LA Ao Ratio MM 1.5 AV Cusp Separation MM 2.2 cm DOPPLER AV Peak Velocity 114.0 cm/s AV Peak Gradient 5.2 mmHg AI Peak Velocity 336.5 cm/s AI Peak Gradient 45.3 mmHg AI Pressure Half Time 443.0 ms LVOT Peak Velocity 80.9 cm/s LVOT Peak Gradient 2.6 mmHg AV Area Cont Eq pk 2.0 cm MR Peak Velocity 426.5 cm/s MR Peak Gradient 72.8 mmHg LV E' Lateral Velocity 7.5 cm/s LV E' Septal Velocity 3.3 cm/s TR Peak Velocity 337.0 cm/s TR Peak Gradient 45.4 mmHg Right Atrial Pressure 10.0 mmHg Pulmonary Artery Systolic Pressu 55.4 mmHg Right Ventricular Systolic Press 55.4 mmHg PV Peak Velocity 96.4 cm/s PV Peak Gradient 3.7 mmHg FINDINGS LEFT VENTRICLE Upper normal left ventricular size. Wall thickness is normal. The left ventricular systolic function is severely reduced with an estimated ejection fraction of 15 %. Severe global hypokinesis. RIGHT VENTRICLE The right ventricle was not well visualized. LEFT ATRIUM The left atrial size is normal. RIGHT ATRIUM The right atrial size is normal. ATRIAL SEPTUM Normal atrial septal thickness without atrial level shunting by limited color doppler interrogation. AORTA The aortic root and proximal ascending aorta are normal in size on limited imaging. MITRAL VALVE Mild mitral valve regurgitation. AORTIC VALVE Trace aortic valve regurgitation. TRICUSPID VALVE There is moderate tricuspid valve regurgitation. The estimated pulmonary arterial pressure is 55 mmHg. PULMONARY VALVE No pulmonary valve regurgitation or stenosis. VESSELS The inferior vena cava is normal in size. PERICARDIUM No pericardial effusion. Santo Payton MD (Electronically Signed) Final Date:20 September 2018 11:41
--- NOTE | 2018-09-20 14:43 | P.PN ---
Subjective Interval history: Patient is seen sitting up in bed. Tells me he continues to feel better with improved breathing. Reports that his general edema has significantly improved as well. He would like to go home. No chest pain. No nausea vomiting or diarrhea. Physical Exam Vital signs: Vital Signs 09/19/18 16:00 09/19/18 19:20 09/19/18 20:00 Temperature 97.9 F 98.2 F Pulse Rate 80 55 L 83 Respiratory Rate 18 18 Blood Pressure 122/75 113/74 Pulse Oximetry 99 100 99 09/19/18 23:53 09/20/18 03:41 09/20/18 07:41 Temperature 97.6 F 98.1 F Pulse Rate 99 H 81 85 Respiratory Rate 20 18 18 Blood Pressure 157/80 H 100/66 125/83 Pulse Oximetry 99 99 100 09/20/18 08:00 09/20/18 12:00 Temperature 97.8 F Pulse Rate 83 93 H Respiratory Rate 18 Blood Pressure 120/74 Pulse Oximetry 96 100 Intake & Output 09/19/18 09/20/18 09/20/18 18:59 06:59 18:59 Other: # Voids 3 3 Date of Last Bowel Movement 09/20/18 Narrative: GENERAL: Well-nourished, well-developed male in no distress. SKIN: Warm and dry. HEAD: Normocephalic. EYES: No scleral icterus. No injection or drainage. NECK: Supple, trachea midline. or lymphadenopathy. CARDIOVASCULAR: Regular rate and rhythm without murmurs, gallops, or rubs. RESPIRATORY: Right lower lobe diminished. No crackles or wheezes. No accessory muscle use. GASTROINTESTINAL: Abdomen soft, non-tender, distended MUSCULOSKELETAL: No cyanosis, or edema. bilateral toe amputations Results - Labs CBC & Chem 7: 09/19/18 02:43 09/20/18 06:22 Laboratory Results - last 24 hr 09/19/18 09/19/18 09/19/18 17:53 21:15 23:33 Sodium Potassium Chloride Carbon Dioxide Anion Gap BUN Creatinine Estimated GFR POC Glucose 65 L 147 H 44 L* Random Glucose Calcium Magnesium Total Bilirubin AST ALT Alkaline Phosphatase B-Natriuretic Peptide Total Protein Albumin 09/19/18 09/20/18 09/20/18 23:48 00:02 00:34 Sodium Potassium Chloride Carbon Dioxide Anion Gap BUN Creatinine Estimated GFR POC Glucose 43 L* 63 L 68 Random Glucose Calcium Magnesium Total Bilirubin AST ALT Alkaline Phosphatase B-Natriuretic Peptide Total Protein Albumin 09/20/18 09/20/18 09/20/18 01:04 06:22 06:22 Sodium 139 Potassium 4.3 Chloride 106 Carbon Dioxide 24.8 Anion Gap 8 BUN 17 Creatinine 1.18 Estimated GFR 64 L POC Glucose 88 Random Glucose 90 Calcium 7.7 L Magnesium 1.8 Total Bilirubin 0.8 AST 32 ALT 19 Alkaline Phosphatase 171 H B-Natriuretic Peptide 1775 H Total Protein 7.2 D Albumin 2.3 L D 09/20/18 09/20/18 08:31 12:35 Sodium Potassium Chloride Carbon Dioxide Anion Gap BUN Creatinine Estimated GFR POC Glucose 144 H 254 H Random Glucose Calcium Magnesium Total Bilirubin AST ALT Alkaline Phosphatase B-Natriuretic Peptide Total Protein Albumin Assessment and Plan - Assessment (1) Acute exacerbation of CHF (congestive heart failure) Code(s): I50.9 - Heart failure, unspecified Status: Acute (2) CHF (congestive heart failure) Code(s): I50.9 - Heart failure, unspecified Status: Chronic (3) Diabetes mellitus Code(s): E11.9 - Type 2 diabetes mellitus without complications Status: Chronic (4) Hypertension Code(s): I10 - Essential (primary) hypertension Status: Chronic (5) Pneumonia Code(s): J18.9 - Pneumonia, unspecified organism Status: Acute - Plan Patient is a 53-year-old male with a past medical history of congestive heart failure, diabetes, hypertension, hyperlipidemia. He has a pacemaker and is currently being considered for heart transplant. He states his last EF was 11%. Presents to the emergency room after seeing primary care and recording a 40 pound weight gain. CHF exacerbation -IV Lasix -EKG ordered; trend troponins -Limit PO intake to 1.5L -Consult to cardiology; appreciate assistance. Patient does not follow outpatient. -Repeat echo - EF <15% Bronchitis/pneumonia -Repeat x-ray indicates worsening right lower lobe patchy airspace disease along with likely trace pleural effusion. -We will treat with Levaquin Electrolyte imbalance -Hypokalemia-given 20 M EQ's IV +40 M EQ's p.o. in ED; improved -Monitor Diabetes -Sliding scale Hypertension -Continue home meds DVT prophylaxis: SCDs and ambulation Discussed with: Patient and nurse Discharge planning: Likely home; discharge pending cardiac clearance (2) CHF (congestive heart failure) Qualifiers: (3) Diabetes mellitus Qualifiers: (4) Hypertension Qualifiers: (5) Pneumonia Qualifiers: Laterality: right Lung location: lower lobe of lung
[2018-09-21] MEDS: Sucralfate 1 GM Tablet PO SCH ×3 (01:50→12:11)
[2018-09-21 03:42] VITALS: O2SAT 100
[2018-09-21 05:09] LABS: Carbon Dioxide 20.4 meq/L (21.0-32.0); Magnesium 1.8 mg/dL (1.5-2.5); Potassium 4.3 meq/L (3.5-5.1)
[2018-09-21 07:49] VITALS: RESP 16
--- NOTE | 2018-09-21 08:09 | P.PNCA ---
Subjective Interval history: patient had mild chest pressure last night prior to ~15 beat of VT seen on telemetry. device did not fire. otherwise feeling well with improved exertional dyspnea and reduced abdominal swelling. LE edema resolved. patient anxious to go home. Medications and Allergies Allergies Allergy/AdvReac Type Severity Reaction Status Date / Time amoxicillin Allergy Mild Hives Verified 09/18/18 15:20 oxycodone Allergy Mild Hives Verified 09/18/18 15:20 nitroglycerin AdvReac Vomiting Verified 09/18/18 15:20 Home Medications Medication Instructions Recorded Confirmed Type insulin aspart U-100 [Novolog 18 unit SUB-Q BID 07/13/18 09/18/18 History Flexpen U-100 Insulin] furosemide [Lasix] 20 mg PO BID 09/18/18 09/18/18 History Active Medications: Active Medications Hydrocodone Bitart/Acetaminophen (Tower 5/325) 1 tab PO Q4H PRN PRN Reason: pain 1 to 10 Last Admin: 09/21/18 02:03 Dose: 1 tab Al Hydroxide/Mg Hydroxide (Milk Of Magnesia Liq) 30 ml PO Q12H PRN PRN Reason: Mild Constipation Atorvastatin Calcium (Lipitor) 10 mg PO HS [facility] Last Admin: 09/20/18 21:32 Dose: 10 mg Bisacodyl (Dulcolax Supp) 10 mg RECTAL DAILY PRN PRN Reason: SEVERE CONSITIPATION Carvedilol (Coreg) 3.125 mg PO BID [facility] Last Admin: 09/20/18 21:32 Dose: 3.125 mg Dextrose (D50w Vial) 50 ml IV.PUSH UNSCH PRN PRN Reason: PER HYPOGLYCEMIA PROTOCOL Furosemide (Lasix Inj) 40 mg IV.PUSH BID@0900,1800 [facility] Last Admin: 09/20/18 18:15 Dose: 40 mg Glucagon (Glucagon Inj) 1 mg OTHER PRN PRN PRN Reason: for Hypoglycemia Protocol Insulin Aspart (Novolog Inj) 18 units SQ BID [facility] Last Admin: 09/20/18 22:17 Dose: Not Given Insulin Aspart (Novolog Insulin Correctional Sugar Inj) 0 unit SQ [facility]; Protocol Last Admin: 09/20/18 22:17 Dose: Not Given Lactulose (Lactulose Liq) 30 ml PO DAILY PRN PRN Reason: SEVERE CONSITIPATION Levofloxacin (Levaquin) 750 mg PO DAILY [facility] Stop: 09/25/18 23:59 Last Admin: 09/20/18 08:39 Dose: 750 mg Lisinopril (Prinivil) 5 mg PO DAILY [facility] Last Admin: 09/20/18 08:39 Dose: 5 mg Pantoprazole Sodium (Protonix) 40 mg PO DAILY [facility] Last Admin: 09/20/18 08:39 Dose: 40 mg Senna/Docusate Sodium (Mariam-Colace) 1 tab PO BID [facility] Last Admin: 09/20/18 21:32 Dose: 1 tab Sennosides (Senokot) 17.2 mg PO Q12H PRN PRN Reason: Moderate Constipation Sodium Chloride (Ns Flush) 2 ml IV.FLUSH UNSCH PRN PRN Reason: FLUSH AFTER USING IV ACCESS Sucralfate (Carafate) 1 gm PO Q6HR [facility] Last Admin: 09/21/18 07:03 Dose: 1 gm Tramadol HCl (Ultram) 50 mg PO Q8H PRN PRN Reason: PAIN SCALE 1 TO 10 Physical Exam Vital signs: Vital Signs 09/20/18 12:00 09/20/18 16:00 09/20/18 19:54 Temperature 97.8 F 97.5 F L 98.2 F Pulse Rate 93 H 89 94 H Respiratory Rate 18 18 19 Blood Pressure 120/74 120/81 113/75 Pulse Oximetry 100 100 100 09/21/18 00:00 09/21/18 03:41 09/21/18 07:49 Temperature 98.2 F 98.0 F 98.6 F Pulse Rate 89 89 86 Respiratory Rate 18 19 16 Blood Pressure 119/74 115/75 117/80 Pulse Oximetry 99 100 100 Intake & Output 09/20/18 09/21/18 09/21/18 18:59 06:59 18:59 Intake Total 600 / 600 480 / 480 Output Total Balance 599 / 599 480 / 480 Weight 68.946 kg Intake: Oral 600 / 600 480 / 480 Output: Stool Other: # Voids 10 3 Date of Last Bowel Movement 09/20/18 09/20/18 Narrative: GENERAL: Well-nourished, well-developed male in no distress. SKIN: Warm and dry. HEAD: Normocephalic. EYES: No scleral icterus. No injection or drainage. NECK: Supple, trachea midline. or lymphadenopathy. CARDIOVASCULAR: Regular rate and rhythm without murmurs, gallops, or rubs. RESPIRATORY: Right lower lobe diminished. No crackles or wheezes. No accessory muscle use. GASTROINTESTINAL: Abdomen soft, non-tender, distended MUSCULOSKELETAL: No cyanosis, or edema. bilateral toe amputations Results 09/19/18 02:43 09/21/18 04:44 Cardiac Enzymes 09/20/18 09/20/18 Range/Units 06:22 06:22 AST 32 (15-37) U/L B-Natriuretic Peptide 1775 H (0-100) pg/mL Coagulation 09/20/18 Range/Units 06:22 B-Natriuretic Peptide 1775 H (0-100) pg/mL Comprehensive Metabolic Panel 09/20/18 09/21/18 Range/Units 06:22 04:44 Sodium 139 135 L (136-145) meq/L Potassium 4.3 4.3 (3.5-5.1) meq/L Chloride 106 104 (98-107) meq/L Carbon Dioxide 24.8 20.4 L (21.0-32.0) meq/L BUN 17 14 (7-18) mg/dL Creatinine 1.18 1.23 (0.60-1.30) mg/dL Calcium 7.7 L 8.0 L (8.5-10.1) mg/dL AST 32 (15-37) U/L ALT 19 (12-78) U/L Alkaline Phosphatase 171 H (45-117) U/L Total Protein 7.2 D (6.4-8.2) g/dL Albumin 2.3 L D (3.4-5.0) g/dL Intake and Output 09/20/18 09/21/18 09/21/18 22:59 06:59 14:59 Intake Total 600 / 600 480 / 480 Output Total Balance 599 / 599 480 / 480 Intake: Oral 600 / 600 480 / 480 Output: Stool Other: # Voids 10 3 Date of Last Bowel Movement 09/20/18 Weight 68.946 kg - Imaging and Cardiology Imaging: Impressions Chest X-Ray 09/19/18 00:00 CONCLUSION: 1. Cardiomegaly with mild positive fluid balance. 2. Worsening right lower lobe patchy airspace disease and likely trace right pleural effusion. Assessment and Plan - Assessment (1) CHF (congestive heart failure) Code(s): I50.9 - Heart failure, unspecified Status: Chronic - Plan 53 yo male with known cardiomyopathy EF <20% (ICD placed earlier this year at [facility]), CHF, PAD (s/p bilateral toe amputations), DMII, HTN and HLD who presented to his PCP with 30 pound weight gain in the past ~1 week with associated exertional dyspnea. He was directed to the ED where CXR shows mild-moderate fluid overload; EKG is nonischemic and troponin levels negative. Labs show elevated BNP of 2000, low Hgb 9 which appears stable from previous visits. His home medications include lasix 80mg, lisinopril 5mg and asa. He does not follow with a commodity specialist but recently acquired insurance and plans to start seeing one regularly. He reports being on a heart transplant list in [place]. Cardiac catheterization in 2016 demonstrated mild CAD. acute on chronic CHF- clinically improving echo shows reduced EF <15%, moderate TR, PAP 55mmHg diuresing well, consider changing furosemide to PO today creatinine stable cont lisinopril and atorvastatin and carvedilol 3.125mg several beats of VT last night. electrolytes stable check EKG - Attending Attestation Clinically doing well. Convert to oral diuretic regimen. Symptomatically improved and ready for discharge. Telemetry reviewed. There is wide complex tachycardia at a rate between 120 and 140 bpm. It appears to be possible accelerated idioventricular rhythm or short atrial run with ventricular pacemaker tracking. Does not appear to be ventricular tachycardia. Will decrease lisinopril dose to 2.5 mg daily and increase carvedilol dose to 6.25 mg twice daily. Clear for discharge. Follow-up in outpatient setting. Patient sees Dr. Godfrey in the outpatient setting (1) CHF (congestive heart failure) Qualifiers:
[2018-09-21] MEDS: Lisinopril 5 MG Tablet PO SCH (08:29)
[2018-09-21] MEDS: Senna/Docusate Sodium 8.6/50 MG Tablet PO SCH (08:29)
[2018-09-21] MEDS: Insulin NovoLOG Aspart Correctional Sugar Inj SQ SCH ×2 (08:29→13:05)
[2018-09-21] MEDS: levoFLOXacin 750 MG Tablet PO SCH (08:29)
[2018-09-21] MEDS ORDERED: Lisinopril 5 MG Tablet PO SCH (10:45)
[2018-09-21 12:11] VITALS: BP 103/62; PULSE 83; TEMP 98.1
--- NOTE | 2018-09-21 12:21 | ECG ---
Date Performed: 09/21/2018 Time Performed: 08:38:51 PTAGE: 53 years EKG: Sinus rhythm PATTERN CONSISTENT WITH PULMONARY DISEASE LEFT ANTERIOR FASCICULAR BLOCK ABNORMAL QRS-T ANGLE ABNORM AL ECG No significant change from prior electrocardiogram. PREVIOUS TRACING : 09/18/2018 15.25 DOCTOR: Chidi Cruz Interpretating Date/Time 09/21/2018 12:20:17
--- NOTE | 2018-09-21 13:10 | P.PN ---
Subjective Interval history: Seen lying in bed. He tells me he feels really good and that his swelling is gone and he is back to his baseline. He plans on following up with primary care and cardiology this week. No chest pain or shortness of breath. No nausea vomiting or diarrhea. Physical Exam Vital signs: Vital Signs 09/20/18 16:00 09/20/18 19:54 09/21/18 00:00 Temperature 97.5 F L 98.2 F 98.2 F Pulse Rate 89 94 H 89 Respiratory Rate 18 Blood Pressure 120/81 113/75 119/74 Pulse Oximetry 100 100 99 09/21/18 03:41 09/21/18 07:49 09/21/18 08:00 Temperature 98.0 F 98.6 F Pulse Rate 89 86 87 Respiratory Rate 19 16 Blood Pressure 115/75 117/80 Pulse Oximetry 100 100 09/21/18 12:10 Temperature 98.1 F Pulse Rate 83 Respiratory Rate 16 Blood Pressure 103/62 Pulse Oximetry 100 Intake & Output 09/20/18 09/21/18 09/21/18 18:59 06:59 18:59 Intake Total 600 / 600 480 / 480 Output Total Balance 599 / 599 480 / 480 Weight 68.946 kg Intake: Oral 600 / 600 480 / 480 Output: Stool Other: # Voids 10 3 Date of Last Bowel Movement 09/20/18 09/20/18 09/21/18 Narrative: GENERAL: Well-nourished, well-developed male in no distress. SKIN: Warm and dry. HEAD: Normocephalic. EYES: No scleral icterus. No injection or drainage. NECK: Supple, trachea midline. or lymphadenopathy. CARDIOVASCULAR: Regular rate and rhythm without murmurs, gallops, or rubs. RESPIRATORY: Right lower lobe diminished. No crackles or wheezes. No accessory muscle use. GASTROINTESTINAL: Abdomen soft, non-tender, distended MUSCULOSKELETAL: No cyanosis, or edema. bilateral toe amputations Results - Labs CBC & Chem 7: 09/19/18 02:43 09/21/18 04:44 Laboratory Results - last 24 hr 09/20/18 09/20/18 09/21/18 17:22 20:07 04:44 Sodium 135 L Potassium 4.3 Chloride 104 Carbon Dioxide 20.4 L Anion Gap 11 BUN 14 Creatinine 1.23 Estimated GFR 61 L POC Glucose 145 H 115 H Random Glucose 171 H Calcium 8.0 L Magnesium 1.8 09/21/18 09/21/18 08:26 12:10 Sodium Potassium Chloride Carbon Dioxide Anion Gap BUN Creatinine Estimated GFR POC Glucose 122 H 172 H Random Glucose Calcium Magnesium Assessment and Plan - Assessment (1) Acute exacerbation of CHF (congestive heart failure) Code(s): I50.9 - Heart failure, unspecified Status: Acute (2) CHF (congestive heart failure) Code(s): I50.9 - Heart failure, unspecified Status: Chronic (3) Diabetes mellitus Code(s): E11.9 - Type 2 diabetes mellitus without complications Status: Chronic (4) Hypertension Code(s): I10 - Essential (primary) hypertension Status: Chronic (5) Pneumonia Code(s): J18.9 - Pneumonia, unspecified organism Status: Acute - Plan Patient is a 53-year-old male with a past medical history of congestive heart failure, diabetes, hypertension, hyperlipidemia. He has a pacemaker and is currently being considered for heart transplant. He states his last EF was 11%. Presents to the emergency room after seeing primary care and recording a 40 pound weight gain. CHF exacerbation -IV Lasix; change to PO for home -EKG ordered; trend troponins -Limit PO intake to 1.5L -Consult to cardiology; appreciate assistance. Patient does not follow outpatient. -Repeat echo - EF <15% Bronchitis/pneumonia -Repeat x-ray indicates worsening right lower lobe patchy airspace disease along with likely trace pleural effusion. -We will treat with Levaquin Electrolyte imbalance -Hypokalemia-given 20 M EQ's IV +40 M EQ's p.o. in ED; improved -Monitor Diabetes -Sliding scale Hypertension -Changes per cardio DVT prophylaxis: SCDs and ambulation Discussed with: Patient and nurse Discharge planning:Home (2) CHF (congestive heart failure) Qualifiers: (3) Diabetes mellitus Qualifiers: (4) Hypertension Qualifiers: (5) Pneumonia Qualifiers: Laterality: right Lung location: lower lobe of lung
--- NOTE | 2018-09-21 13:22 | P.DS ---
Date of admission: 09/18/18 17:11 Primary care physician: No Primary Care Physician Attending physician on discharge: Oksana Saleh Anticipated date of discharge: 09/21/18 Brief History from admission: Patient is a 53-year-old male who presents to the emergency room after seeing his primary care doctor and recording a 40 pound weight gain. He has a past medical history of CHF, DM, hypertension, hyperlipidemia, GERD. He had a pacemaker placed in April 2018 and is currently on a heart transplant list. He does not follow with a local retail custodial associate due to a change in insurance, most recently saw Dr. Godfrey at [facility]. He reports an EF of 11% which is in line with echocardiogram done in January 2018 which indicated EF less than 20% and pulmonary artery pressure of 48. He is complaining of generalized edema primarily legs and scrotum. He is also extremely short of breath. No chest pain. He tells me that he has been taking his p.o. Lasix "a couple extra pills" but it has not been helping. denies any recent changes in diet or increases in fluid intake. Reports that he has been urinating normally and has had normal bowel movements. No nausea vomiting or diarrhea; no fever or chills. DS: Diagnosis - Discharge Diagnosis (1) Acute exacerbation of CHF (congestive heart failure) Status: Resolved (2) CHF (congestive heart failure) Status: Chronic (3) Diabetes mellitus Status: Chronic (4) Hypertension Status: Chronic (5) Pneumonia Status: Acute DS: Medications - Discharge Medications Prescriptions: carvedilol [Coreg] 6.25 mg PO BID #60 tab furosemide [Lasix] 40 mg PO BID #120 tab levofloxacin 750 mg PO DAILY #5 tab lisinopril 2.5 mg PO DAILY #30 tab DS: Summary Hospital Course: Patient is a 53-year-old male with a past medical history of congestive heart failure, diabetes, hypertension, hyperlipidemia. He has a pacemaker and is currently being considered for heart transplant. He states his last EF was 11%. Presents to the emergency room after seeing primary care and recording a 40 pound weight gain. CHF exacerbation -IV Lasix; change to PO for home -EKG ordered; trend troponins - negative for acute process -Limit PO intake to 1.5L -Consult to cardiology; appreciate assistance. Patient does not follow outpatient. -Repeat echo - EF <15% Bronchitis/pneumonia -Repeat x-ray indicates worsening right lower lobe patchy airspace disease along with likely trace pleural effusion. -We will treat with Levaquin x7 days Electrolyte imbalance -Hypokalemia-given 20 M EQ's IV +40 M EQ's p.o. in ED; improved -Monitor Diabetes -Sliding scale Hypertension -Changes per cardio - add coreg 6.25 mg bid and reduce lisinopril to 2.5 mg daily - Time Spent with Patient Total time spent providing and/or coordinating discharge services: Less than 30 minutes - Quality: VTE Deep Vein Thrombosis/Pulmonary Embolism Present on Admission: No Exam Vital signs: Vital Signs 09/20/18 16:00 09/20/18 19:54 09/21/18 00:00 Temperature 97.5 F L 98.2 F 98.2 F Pulse Rate 89 94 H 89 Respiratory Rate 18 19 18 Blood Pressure 120/81 113/75 119/74 Pulse Oximetry 100 100 99 09/21/18 03:41 09/21/18 07:49 09/21/18 08:00 Temperature 98.0 F 98.6 F Pulse Rate 89 86 87 Respiratory Rate 19 16 Blood Pressure 115/75 117/80 Pulse Oximetry 100 100 09/21/18 12:10 Temperature 98.1 F Pulse Rate 83 Respiratory Rate 16 Blood Pressure 103/62 Pulse Oximetry 100 Intake & Output 09/20/18 09/21/18 09/21/18 18:59 06:59 18:59 Intake Total 600 / 600 480 / 480 Output Total Balance 599 / 599 480 / 480 Weight 68.946 kg Intake: Oral 600 / 600 480 / 480 Output: Stool Other: # Voids 10 3 Date of Last Bowel Movement 09/20/18 09/20/18 09/21/18 Narrative: GENERAL: Well-nourished, well-developed male in no distress. SKIN: Warm and dry. HEAD: Normocephalic. EYES: No scleral icterus. No injection or drainage. NECK: Supple, trachea midline. or lymphadenopathy. CARDIOVASCULAR: Regular rate and rhythm without murmurs, gallops, or rubs. RESPIRATORY: Right lower lobe diminished. No crackles or wheezes. No accessory muscle use. GASTROINTESTINAL: Abdomen soft, non-tender, distended MUSCULOSKELETAL: No cyanosis, or edema. bilateral toe amputations Results Procedures completed during hospitalization: none Labs on day of discharge: Labs from last 24 hours 09/21/18 09/21/18 09/21/18 12:10 08:26 04:44 Sodium 135 L Potassium 4.3 Chloride 104 Carbon Dioxide 20.4 L Anion Gap 11 BUN 14 Creatinine 1.23 Estimated GFR 61 L POC Glucose 172 H 122 H Random Glucose 171 H Calcium 8.0 L Magnesium 1.8 09/20/18 09/20/18 20:07 17:22 Sodium Potassium Chloride Carbon Dioxide Anion Gap BUN Creatinine Estimated GFR POC Glucose 115 H 145 H Random Glucose Calcium Magnesium - Impressions ITS Impressions Chest X-Ray 09/19/18 00:00 CONCLUSION: 1. Cardiomegaly with mild positive fluid balance. 2. Worsening right lower lobe patchy airspace disease and likely trace right pleural effusion. Discharge Plan - Discharge Disposition Patient Disposition: 01 Discharge Home - Discharge Condition Condition: Stable - Discharge Order Discharge Orders: Discharge Order (Routine); Ordered 09/21/18 Ordered By: Katherine Conley Cardiology Clear for Discharge (Routine); Ordered 09/21/18 Ordered By: Mp Galdamez - Physicians Team Primary Care Provider: Primary Care Sylvester,Yoli Attending Provider: Oksana Saleh Other Providers: Mp Galdamez MD
[2018-09-21] MEDS ORDERED: Furosemide 40 MG Tablet PO SCH (18:00)
[2018-09-21] MEDS ORDERED: Carvedilol 6.25 MG Tablet PO SCH (21:00)
== END 2018-09-21 14:14 | disposition home or self-care (01) ==
LOC: NEPE 14:30 → NEDA 14:30 → NEPGCP 18:15
PROVIDERS: ADMIT Family Medicine; ATTEND Family Medicine

== ENCOUNTER 2018-10-12 14:43 | Inpatient (IN) ==
[2018-10-12] MEDS ORDERED: Morphine Inj 4 MG/ML Vial IV.PUSH ONE (15:11)
[2018-10-12 15:34] LABS: Baso % (Auto) 0.6 % (0.0-2.0); Eos # (Auto) 0.2 th/mm3 (0.0-0.4); Eos % (Auto) 4.2 % (0.0-4.0); Hematocrit 29.2 % (39.0-51.0); Hemoglobin 8.8 gm/dL (13.0-17.0); Lymph # (Auto) 0.7 th/mm3 (1.0-4.8); Lymph % (Auto) 18.4 % (9.0-44.0); Mean Corpuscular Hemoglobin 20.6 pg (27.0-34.0); Mean Corpuscular Volume 68.1 fL (80.0-100.0); Mean Platelet Volume 8.9 fL (7.0-11.0); Mono # (Auto) 0.4 th/mm3 (0.0-0.9); Mono % (Auto) 10.1 % (0.0-8.0); Neut # (Auto) 2.6 th/mm3 (1.8-7.7); Neut % (Auto) 66.7 % (16.0-70.0); Platelet Count 110 th/mm3 (150-450); Red Blood Count 4.28 mil/mm3 (4.50-5.90); White Blood Count 3.9 th/mm3 (4.0-11.0)
[2018-10-12 15:36] LABS: Mean Corpuscular HGB Conc 30.3 % (32.0-36.0)
--- NOTE | 2018-10-12 15:44 | XR ---
EXAM DATE: 10/12/2018 3:37 PM EST AGE/SEX: 53 years / Male INDICATIONS: CHF. CLINICAL DATA: This is the patient's initial encounter. Patient reports that signs and symptoms have been present for 1 month and indicates a pain score of 0/10. MEDICAL/SURGICAL HISTORY: . Congestive heart failure. Hypertension. Diabetes mellitus type II. Pacemaker . COMPARISON: [facility], CHEST 1V SINGLE AP, 09/19/2018. . FINDINGS: Mild patchiness is noted within the right lung base consistent with possible residual infiltrate. The heart is enlarged. Left subclavian pacer is stable. CONCLUSION: 1. Mild patchiness within the right lung base consistent with possible residual infiltrate. 2. Cardiomegaly. Electronically signed by: Jacob Morfin MD 10/12/2018 3:42 PM EST
[2018-10-12 15:54] LABS: Calcium 7.8 mg/dL (8.5-10.1); Carbon Dioxide 18.6 meq/L (21.0-32.0); Potassium 3.8 meq/L (3.5-5.1)
[2018-10-12 16:01] LABS: Troponin I 0.04 ng/mL (0.02-0.05)
--- NOTE | 2018-10-12 16:07 | ED ---
HPI General Chief Complaint: Medical Clearance Stated Complaint: Edema lower body Time Seen by Provider: 10/12/18 15:05 Source: patient and old records reviewed Limitations: no limitations History of Present Illness MD Complaint: Reports shortness of breath (And peripheral edema) Onset (ago): day(s) (2) Context: Reports other (Congestive heart failure) Severity: severe Consistency/Duration: constant and progressively worsening Relieving factors: nothing (Unrelieved by doubling his Lasix) Exacerbating factors: exertion (Dyspnea is exacerbated by exertion) Known history of: Reports congestive heart failure Associated symptoms: Reports cough, wheezing, lower extremity pain and other ( Swelling from his umbilicus down); Denies fever Treatment prior to arrival: Reports diuretics Related Data Home oxygen amount: none Home Medications Medication Instructions Recorded Confirmed insulin aspart U-100 [Novolog 18 unit SUB-Q BID 07/13/18 10/12/18 Flexpen U-100 Insulin] Previous Rx's Medication Instructions Recorded atorvastatin [Lipitor] 10 mg PO HS tab 07/17/18 pantoprazole [Protonix] 40 mg PO DAILY #30 tab 08/08/18 sucralfate [Carafate] 1 g PO Q6H #120 tab 08/08/18 carvedilol [Coreg] 6.25 mg PO BID #60 tab 09/21/18 furosemide [Lasix] 40 mg PO BID #120 tab 09/21/18 lisinopril 2.5 mg PO DAILY #30 tab 09/21/18 Allergies Allergy/AdvReac Type Severity Reaction Status Date / Time amoxicillin Allergy Intermediate Hives Verified 10/12/18 15:00 nitroglycerin Allergy Intermediate Hives Verified 10/12/18 15:29 oxycodone Allergy Intermediate Hives Verified 10/12/18 15:00 Review of Systems ROS: all other systems reviewed are negative [facility] Medical History Medical History Amputated toe (Acute) CHF (congestive heart failure) (Acute) Chest pain (Acute) Diabetes (Acute) Gastritis (Acute) HTN (hypertension) (Acute) Heart attack (Acute) Heart transplant candidate (Acute) Hyperlipidemia (Acute) Lead poisoning (Acute) Pacemaker (Acute) Surgical History Surgical History H/O Spinal surgery (Acute) H/O toe surgery (Acute) History of surgery on arm (Acute) Family History Family History Mother Diabetes Stented coronary artery Brother CHF (congestive heart failure) Social History Social History Substance History: No History of Abuse Second Hand Smoke Exposure: No Smoking Status: Former smoker Tobacco Type: Cigarettes How Often Do You Have a Drink Containing Alcohol: 2 to 4 times a month Recent Travel in [facility] within the Last 8 Weeks: No Recent Out of Country Travel within the Last 8 Weeks: No Immunization History Tetanus Immunization: >5 Years Exam Const General: cooperative, healthy appearing, comfortable, no acute distress, well developed and well groomed Orientation: alert, awake and oriented x3 HENMT Head: normal to inspection, normocephalic and atraumatic Eyes Alignment and Position: alignment normal Conjunctivae: conjunctivae normal Sclera: sclerae normal EOM: EOM intact bilaterally Neck Neck: normal visual inspection and full ROM Chest Chest: normal inspection of the chest Resp Effort & Inspection: normal respiratory effort and able to speak in complete sentences Auscultation: rales bilaterally at the base Cardio Rate: regular rate Rhythm: regular rhythm GI Inspection: normal to inspection Palpation: soft Back/Spine/Pelvis Cervical Spine: cervical ROM normal Thoracic/Lumbar Spine: thoraco-lumbar ROM normal Skin General: no rashes or lesions noted and turgor normal Neuro General: alert, awake, oriented x3, moves all extremities and CN's II-XI intact bilaterally Extrem General: normal to inspection, full ROM and edema Psych Appearance: grossly normal Mental Status: mental status grossly normal Speech and Movement: speech and movement normal Mood: congruent mood Affect: normal affect Attitude: cooperative Thought Process: normal Thought Content: normal Judgment: judgment good Course Initial Documented Vital Signs Temperature 97.7 F 10/12/18 14:50 Pulse Rate 107 H 10/12/18 14:50 Respiratory Rate 18 10/12/18 14:50 Blood Pressure 119/63 10/12/18 14:50 Pulse Oximetry 99 10/12/18 14:50 Last Documented Vital Signs Temperature 97.8 F 10/12/18 16:29 Pulse Rate 86 10/12/18 16:29 Respiratory Rate 16 10/12/18 16:29 Blood Pressure 132/82 10/12/18 16:29 Pulse Oximetry 99 10/12/18 16:29 Critical Care Time Critical Care Time: Yes Total Critical Care Time: 35 Attestation: Time to perform other separately billable procedures was not included in the critical care time. My time did not include minutes spent treating any other patients simultaneously or on activities that did not directly contribute to the patient's treatment. The services I provided to this patient were to treat and/or prevent clinically significant deterioration due to dyspnea, CHF I provided critical care services requiring my management, as noted below: Chart data review, documentation time, medication orders and management, vital sign assessments/reviewing monitor data, ordering and reviewing lab tests, ordering and interpreting/reviewing x-rays and diagnostic studies, care of the patient and discussion of the patient with the admitting physicians Medical Decision Making MDM Narrative Medical decision making narrative: This is a patient with severe cardiomyopathy with a most recent ejection fraction in early September 2018 estimated at less than 15% who presents with increasing edema and dyspnea. He reports a 22 pound weight gain over the last 2 days. He has doubled his usual daily dose of Lasix without relief. An IV has been started. He has been given Lasix 100 mg IV. This is not double his usual daily dose of Lasix. He has been taking 160 mg/day for the last 2 days. He will likely need more Lasix. He has also been given an inch of Nitropaste. Morphine for discomfort and to help with his breathing. Patient reports that he is feeling a little bit better following the above treatment. He is being admitted to the hospital for aggressive treatment of his CHF. Medical Screen Exam Complete: Yes Emergency Medical Condition: Yes Differential Diagnosis Differential Diagnosis: Differential diagnosis of dyspnea includes but is not limited to congestive heart failure, pneumonia, wheezing, pneumothorax, pulmonary embolism Medical Records Medical records reviewed: Yes I reviewed the patient's medical records. The patient was admitted here about 2 weeks ago for CHF exacerbation. Other medical problems include diabetes and hypertension. 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 Lab Data Lab results reviewed: Yes I reviewed the patient's lab results. Result diagrams: 10/12/18 15:17 10/12/18 15:17 Lab Results 10/12/18 10/12/18 Range/Units 15:17 15:17 WBC 3.9 L (4.0-11.0) th/mm3 RBC 4.28 L (4.50-5.90) mil/mm3 Hgb 8.8 L (13.0-17.0) gm/dL Hct 29.2 L (39.0-51.0) % MCV 68.1 L (80.0-100.0) fL MCH 20.6 L (27.0-34.0) pg MCHC 30.3 L (32.0-36.0) % RDW 23.0 H (11.6-17.2) % Plt Count 110 L (150-450) th/mm3 MPV 8.9 (7.0-11.0) fL Neut % (Auto) 66.7 (16.0-70.0) % Lymph % (Auto) 18.4 (9.0-44.0) % [place] % (Auto) 10.1 H (0.0-8.0) % Eos % (Auto) 4.2 H (0.0-4.0) % Baso % (Auto) 0.6 (0.0-2.0) % Neut # (Auto) 2.6 (1.8-7.7) th/mm3 Lymph # (Auto) 0.7 L (1.0-4.8) th/mm3 [place] # (Auto) 0.4 (0.0-0.9) th/mm3 Eos # (Auto) 0.2 (0.0-0.4) th/mm3 Baso # (Auto) 0.0 (0.0-0.2) th/mm3 WBC Differential . Differential Comment Auto diff final Sodium 133 L (136-145) meq/L Potassium 3.8 (3.5-5.1) meq/L Chloride 105 (98-107) meq/L Carbon Dioxide 18.6 L (21.0-32.0) meq/L Anion Gap 9 (5-15) meq/L BUN 23 H (7-18) mg/dL Creatinine 1.43 H (0.60-1.30) mg/dL Estimated GFR 52 L (>89) mL/min Random Glucose 160 H (74-106) mg/dL Calcium 7.8 L (8.5-10.1) mg/dL Troponin I 0.04 (0.02-0.05) ng/mL Imaging Data Attestation: I personally reviewed and interpreted this imaging study as follows : Radiologist's impression: Chest X-Ray 10/12/18 15:11 CONCLUSION: 1. Mild patchiness within the right lung base consistent with possible residual infiltrate. 2. Cardiomegaly. ECG Data EKG Prior to Arrival: No Attestation: I personally reviewed and interpreted this ECG as follows: (EKG shows a sinus rhythm with a no acute STT wave changes.) Discharge Plan Discharge Disposition Patient Disposition: 30 Still Patient Discharge Details Diagnosis: CHF (congestive heart failure) Physicians Team ED Provider: Radha Guerrero Primary Care Provider: UNKNOWN, Attending Provider: Casandra Puente Status ED Status: Admitted Patient
[2018-10-12] MEDS ORDERED: Dextrose 50% in Water 50 ML Vial IV.PUSH PRN (17:08)
--- NOTE | 2018-10-12 17:17 | P.HPIM ---
History of Present Illness Primary Care Physician: UNKNOWN History of Present Illness: This patient is a 53-year-old male with a diagnosis of hypertension, systolic CHF ejection fraction 15% status post AICD and pacemaker, uncontrolled diabetes. The patient presents with 3-day history of worsening shortness of breath as well as lower extremity swelling. The patient says that his symptoms have progressively getting worse over the past week and is now unable to lie flat. He also had some chest discomfort earlier today and came into our emergency department for evaluation and care. He has had similar symptoms in the past and has been admitted for CHF exacerbations. The patient denies any fevers or chills, no diarrhea, no abdominal pain. Past medical history hypertension, systolic CHF ejection fraction 50% status post AICD placement and pacemaker placement, insulin-dependent diabetes Surgical history the patient has amputations of all of his toes due to comp occasions of diabetes. Family history significant for coronary artery disease, diabetes Social history the patient has an extensive history of tobacco smoking, he drinks alcohol socially, he denies any history of drug use. The patient admits to smoking marijuana. Inpatient Certification: I certify that the inpatient services were ordered in accordance with Medicare regulations governing the order. This includes certification that hospital inpatient services are reasonable and necessary and in the case of services not specified as inpatient-only under 42 CFR 419.22(n), that they are appropriately provided as inpatient services in accordance to with the 2-midnight benchmark under 43 CFR 412.3(e) Estimated Total Length of Stay (Days): 3 Plans for Post Hospital Care: Home Review of Systems All other systems reviewed negative except as stated [facility] - History History Provided By: Patient - Medical History Medical History: Medical History (Last Reviewed 10/12/18 @ 16:03 by Radha Guerrero) CHF (congestive heart failure) Amputated toe Chest pain Diabetes Gastritis HTN (hypertension) Heart attack Heart transplant candidate Hyperlipidemia Lead poisoning Pacemaker - Surgical History Surgical History: Surgical History (Last Reviewed 10/12/18 @ 16:03 by Radha Guerrero) H/O Spinal surgery H/O toe surgery History of surgery on arm - Family History Family History: Family History (Last Updated 09/18/18 @ 18:31 by CHRISTIAN Del Toro) Mother Diabetes Stented coronary artery Brother CHF (congestive heart failure) - Tobacco History Second Hand Smoke Exposure: No Tobacco Use In Past 30 Days: No Smoking Status: Former smoker Tobacco Type: Cigarettes - Alcohol History How Often Do You Have a Drink Containing Alcohol: 2 to 4 times a month - Substance Use History Substance History: No History of Abuse - Travel History Recent Travel in the [place] Within the Last 8 Weeks: No Recent Travel Out of the Country Within the Last 8 Weeks: No - Immunization History Tetanus Immunization: >5 Years Medications and Allergies Active Medications: Active Medications Aspirin (Aspirin Chew) 81 mg PO DAILY SHAKIRA Last Admin: 10/12/18 15:26 Dose: 81 mg Carvedilol (Coreg) 3.125 mg PO BID SHAKIRA Dextrose (D50w Vial) 50 ml IV.PUSH UNSCH PRN PRN Reason: PER HYPOGLYCEMIA PROTOCOL Furosemide (Lasix Inj) 40 mg IV.PUSH Q8H SHAKIRA Glucagon (Glucagon Inj) 1 mg OTHER PRN PRN PRN Reason: for Hypoglycemia Protocol Insulin Aspart (Novolog Insulin Correctional Sugar Inj) 0 unit SQ ACHS AND 3AM SHAKIRA; Protocol Insulin Glargine (Lantus Inj) 8 units SQ HS SHAKIRA Allergies Allergy/AdvReac Type Severity Reaction Status Date / Time amoxicillin Allergy Intermediate Hives Verified 10/12/18 15:00 nitroglycerin Allergy Intermediate Hives Verified 10/12/18 15:29 oxycodone Allergy Intermediate Hives Verified 10/12/18 15:00 Home Medications Medication Instructions Recorded Confirmed Type insulin aspart U-100 [Novolog 18 unit SUB-Q BID 07/13/18 10/12/18 History Flexpen U-100 Insulin] Exam Vital signs: Vital Signs 10/12/18 14:50 10/12/18 15:11 10/12/18 15:30 Temperature 97.7 F Pulse Rate 107 H 89 Respiratory Rate 18 17 Blood Pressure 119/63 Pulse Oximetry 99 99 10/12/18 16:00 10/12/18 16:29 Temperature 97.8 F Pulse Rate 86 Respiratory Rate 17 16 Blood Pressure 132/82 Pulse Oximetry 99 Intake & Output 10/11/18 10/12/18 10/12/18 18:59 06:59 18:59 Weight 87.09 kg Narrative: General patient complains of lower extremity swelling, and a cough. HEENT extraocular movements are intact, clear oropharyngeal mucosa, JVD present Cardiovascular S1-S2 audible Respiratory bilateral crackles on auscultation Abdomen soft, nontender, nondistended, normal bowel sounds Extremities 2+ pitting edema bilateral lower extremities up to the thighs Neuro cranial no neurological deficits Results - Labs CBC & Chem 7: 10/12/18 15:17 10/12/18 15:17 Labs: Short CBC 10/12/18 Range/Units 15:17 WBC 3.9 L (4.0-11.0) th/mm3 Hgb 8.8 L (13.0-17.0) gm/dL Hct 29.2 L (39.0-51.0) % Plt Count 110 L (150-450) th/mm3 BMP 10/12/18 15:17 Sodium 133 L Potassium 3.8 Chloride 105 Carbon Dioxide 18.6 L BUN 23 H Creatinine 1.43 H Calcium 7.8 L Cardiac Enzymes 10/12/18 Range/Units 15:17 Troponin I 0.04 (0.02-0.05) ng/mL - Imaging Impressions Chest X-Ray 10/12/18 15:11 CONCLUSION: 1. Mild patchiness within the right lung base consistent with possible residual infiltrate. 2. Cardiomegaly. Caprini VTE Risk Assessment Caprini VTE Risk Assessment: No/Low Risk (score <= 1) Caprini Risk Assessment Model: Point Value = 1 Point Value = 2 Point Value = 3 Point Value = 5 Age 41-60 Minor surgery BMI > 25 kg/m2 Swollen legs Varicose veins or History of unexplained or recurrent spontaneous Oral contraceptives or hormone replacement Sepsis (< 1 month) Serious lung disease, including pneumonia (< 1 month) Abnormal pulmonary function Acute myocardial infarction Congestive heart failure (< 1 month) History of inflammatory bowel disease Medical patient at bed rest Age 61-74 Arthroscopic surgery Major open surgery (> 45 min) Laparoscopic surgery (> 45 min) Malignancy Confined to bed (> 72 hours) Immobilizing plaster cast Central venous access Age >= 75 History of VTE Family history of VTE Factor V Leiden Prothrombin [id number] Lupus anticoagulant Anticardiolipin antibodies Elevated serum homocysteine Heparin-induced thrombocytopenia Other congenital or acquired thrombophilia Stroke (< 1 month) Elective arthroplasty Hip, pelvis, or leg fracture Acute spinal cord injury (< 1 month) Prophylaxis Regimen: Total Risk Factor Score Risk Level Prophylaxis Regimen 0-1 Low Early ambulation 2 Moderate Order ONE of the following: *Sequential Compression Device (SCD) *Heparin 5000 units SQ BID 3-4 Higher Order ONE of the following medications: *Heparin 5000 units SQ TID *Enoxaparin/Lovenox 40 mg SQ daily (WT < 150 kg, CrCl > 30 mL/min) *Enoxaparin/Lovenox 30 mg SQ daily (WT < 150 kg, CrCl > 10-29 mL/min) *Enoxaparin/Lovenox 30 mg SQ BID (WT < 150 kg, CrCl > 30 mL/min) AND/OR *Sequential Compression Device (SCD) 5 or more Highest Order ONE of the following medications: *Heparin 5000 units SQ TID (Preferred with Epidurals) *Enoxaparin/Lovenox 40 mg SQ daily (WT < 150 kg, CrCl > 30 mL/min) *Enoxaparin/Lovenox 30 mg SQ daily (WT < 150 kg, CrCl > 10-29 mL/min) *Enoxaparin/Lovenox 30 mg SQ BID (WT < 150 kg, CrCl > 30 mL/min) AND *Sequential Compression Device (SCD) Assessment and Plan - Plan This patient is a 53-year-old male with a diagnosis of hypertension, systolic CHF ejection fraction 15% status post AICD and pacemaker, uncontrolled diabetes. The patient presents with 3-day history of worsening shortness of breath as well as lower extremity swelling. The patient says that his symptoms have progressively getting worse over the past week and is now unable to lie flat. He also had some chest discomfort earlier today and came into our emergency department for evaluation and care. He has had similar symptoms in the past and has been admitted for CHF exacerbations. 1. Acute on chronic systolic CHF exacerbation secondary to fluid restriction noncompliance 2. Acute kidney injury likely secondary to #1 Patient will be admitted and monitored on telemetry. He has been given a dose of IV Lasix in the emergency department noted in the patient's room. We will continue with IV Lasix 40 mg IV every 8 hours, depending on diuresis will start to decrease to IV Lasix after evaluation tomorrow. We will give the patient half of his Coreg dose twice daily. Once the patient is euvolemic he will be restarted back on his normal dose. Lisinopril will be held given the patient's acute kidney injury. Strict ins and outs 1.5 L fluid restriction. CHF education will be given to the patient. Follow-up a.m. labs. 3. Insulin-dependent diabetes Patient will be started on Lantus, and a low-dose insulin sliding scale. We will adjust his medications as needed. Patient is ambulatory, SCDs for DVT prophylaxis.
[2018-10-12] MEDS ORDERED: Aspirin 325 MG Tablet PO ONE (17:20)
[2018-10-12] MEDS: Morphine Inj 4 MG/ML Vial IV.PUSH PRN (20:11)
[2018-10-12] MEDS: Insulin Detemir Inj 1,000 UNIT/10 ML Vial SQ SCH (20:12)
[2018-10-12] MEDS: Insulin NovoLOG Aspart Correctional Sugar Inj SQ SCH (20:13)
[2018-10-13] MEDS: Morphine Inj 4 MG/ML Vial IV.PUSH PRN ×6 (00:56→20:25)
[2018-10-13] MEDS: Insulin NovoLOG Aspart Correctional Sugar Inj SQ SCH ×5 (02:53→20:26)
[2018-10-13 09:41] LABS: Baso % (Auto) 0.6 % (0.0-2.0); Eos # (Auto) 0.4 th/mm3 (0.0-0.4); Hematocrit 32.1 % (39.0-51.0); Hemoglobin 9.7 gm/dL (13.0-17.0); Lymph % (Auto) 22.1 % (9.0-44.0); Mean Corpuscular Hemoglobin 20.7 pg (27.0-34.0); Mean Corpuscular Volume 68.9 fL (80.0-100.0); Mean Platelet Volume 8.8 fL (7.0-11.0); Mono # (Auto) 0.4 th/mm3 (0.0-0.9); Mono % (Auto) 9.1 % (0.0-8.0); Neut # (Auto) 2.7 th/mm3 (1.8-7.7); Neut % (Auto) 59.2 % (16.0-70.0); Platelet Count 105 th/mm3 (150-450); Red Blood Count 4.67 mil/mm3 (4.50-5.90); Red Cell Distribution Width 23.1 % (11.6-17.2); White Blood Count 4.5 th/mm3 (4.0-11.0)
[2018-10-13 10:17] LABS: Calcium 8.3 mg/dL (8.5-10.1); Carbon Dioxide 22.7 meq/L (21.0-32.0); Magnesium 1.8 mg/dL (1.5-2.5); Potassium 3.6 meq/L (3.5-5.1)
--- NOTE | 2018-10-13 16:44 | P.PN ---
Subjective Interval history: Follow-up for severe cardiomyopathy, congestive heart failure, diabetes mellitus. Patient is currently doing well. He reports significant improvement of symptoms. His legs are much better and his breathing well as well. He is on room air. Physical Exam Vital signs: Vital Signs 10/12/18 16:55 10/12/18 18:20 10/12/18 18:48 Temperature 97.9 F 97.9 F 97.2 F L Pulse Rate 92 H 89 103 H Respiratory Rate 20 18 20 Blood Pressure 141/89 H 138/81 138/94 H Pulse Oximetry 97 97 100 10/12/18 20:00 10/13/18 00:00 10/13/18 04:00 Temperature 97.4 F L 97.2 F L 97.4 F L Pulse Rate 98 H 77 77 Respiratory Rate 20 20 20 Blood Pressure 124/84 147/87 H 120/79 Pulse Oximetry 100 100 100 10/13/18 08:00 10/13/18 09:00 10/13/18 12:00 Temperature 97.6 F 97.6 F Pulse Rate 77 75 70 Respiratory Rate 18 18 Blood Pressure 132/81 119/78 Pulse Oximetry 100 100 10/13/18 16:00 Temperature Pulse Rate 86 Respiratory Rate Blood Pressure Pulse Oximetry Intake & Output 10/12/18 10/13/18 10/13/18 18:59 06:59 18:59 Intake Total 240 / 240 Output Total 1400 / 1400 500 / 500 Balance -1400 / -1400 -260 / -260 Weight 87.09 kg 87.3 kg Intake: Oral 240 / 240 Output: Urine 1400 / 1400 500 / 500 Other: # Voids 1 Narrative: GENERAL: Alert, oriented x3, NAD. On room air. SKIN: Warm and dry. HEAD: Normocephalic. EYES: No scleral icterus. No injection or drainage. NECK: Supple, trachea midline. No JVD or lymphadenopathy. CARDIOVASCULAR: Regular rate and rhythm without murmurs, gallops, or rubs. Minor crackles noted in the bibasilar space. RESPIRATORY: Breath sounds equal bilaterally. No accessory muscle use. GASTROINTESTINAL: Abdomen soft, non-tender, nondistended. MUSCULOSKELETAL: No cyanosis. Lower extremity trace edema BACK: Nontender without obvious deformity. No CVA tenderness. Results - Labs CBC & Chem 7: 10/13/18 07:50 10/13/18 07:50 Laboratory Results - last 24 hr 10/12/18 10/12/18 10/12/18 15:17 19:20 21:54 WBC RBC Hgb Hct MCV MCH MCHC RDW Plt Count MPV Neut % (Auto) Lymph % (Auto) [place] % (Auto) Eos % (Auto) Baso % (Auto) Neut # (Auto) Lymph # (Auto) [place] # (Auto) Eos # (Auto) Baso # (Auto) WBC Differential Differential Comment Sodium Potassium Chloride Carbon Dioxide Anion Gap BUN Creatinine Estimated GFR POC Glucose 149 H Random Glucose Calcium Magnesium Troponin I 0.03 B-Natriuretic Peptide 2097 H 10/13/18 10/13/18 10/13/18 02:49 07:39 07:50 WBC 4.5 RBC 4.67 Hgb 9.7 L Hct 32.1 L MCV 68.9 L MCH 20.7 L MCHC 30.0 L RDW 23.1 H Plt Count 105 L MPV 8.8 Neut % (Auto) 59.2 Lymph % (Auto) 22.1 [place] % (Auto) 9.1 H Eos % (Auto) 9.0 H Baso % (Auto) 0.6 Neut # (Auto) 2.7 Lymph # (Auto) 1.0 [place] # (Auto) 0.4 Eos # (Auto) 0.4 Baso # (Auto) 0.0 WBC Differential . Differential Comment Auto diff final Sodium Potassium Chloride Carbon Dioxide Anion Gap BUN Creatinine Estimated GFR POC Glucose 129 H 99 Random Glucose Calcium Magnesium Troponin I B-Natriuretic Peptide 10/13/18 10/13/18 07:50 12:15 WBC RBC Hgb Hct MCV MCH MCHC RDW Plt Count MPV Neut % (Auto) Lymph % (Auto) [place] % (Auto) Eos % (Auto) Baso % (Auto) Neut # (Auto) Lymph # (Auto) [place] # (Auto) Eos # (Auto) Baso # (Auto) WBC Differential Differential Comment Sodium 135 L Potassium 3.6 Chloride 105 Carbon Dioxide 22.7 Anion Gap 7 BUN 20 H Creatinine 1.08 Estimated GFR 71 L POC Glucose 161 H Random Glucose 71 L Calcium 8.3 L Magnesium 1.8 Troponin I B-Natriuretic Peptide - Imaging Chest X-Ray 10/12/18 15:11 CONCLUSION: 1. Mild patchiness within the right lung base consistent with possible residual infiltrate. 2. Cardiomegaly. Assessment and Plan - Plan This patient is a 53-year-old male with a diagnosis of hypertension, systolic CHF ejection fraction 15% status post AICD and pacemaker, uncontrolled diabetes. The patient presents with 3-day history of worsening shortness of breath as well as lower extremity swelling. The patient says that his symptoms have progressively getting worse over the past week and is now unable to lie flat. He also had some chest discomfort earlier today and came into our emergency department for evaluation and care. He has had similar symptoms in the past and has been admitted for CHF exacerbations. Acute exacerbation of congestive heart failure systolic Chronic congestive heart failure, systolic Severe cardiomyopathy with ejection fraction 15% -Patient's NYHA classification is likely II. -I encouraged patient to follow up with [employer] and discuss need for Entresto -Will put patient on Torsemide 20mg BID, Spironolactone 25mg Qday -Continue Carvedilol 3.125mg BID and start Losartan 25mg Qday. -Continue Aspirin 81mg Qday. Diabetes mellitus -Continue Levemir and sliding scale insulin. Full code. Ambulation. Discharge Plan: Likely discharge tomorrow morning.
[2018-10-13] MEDS: Torsemide 20 MG Tablet PO SCH (17:51)
--- NOTE | 2018-10-13 20:11 | ECG ---
Date Performed: 10/12/2018 Time Performed: 15:31:54 PTAGE: 53 years EKG: Sinus rhythm WITH OCCASIONAL ECTOPIC PREMATURE COMPLEXES LEFT ANTERIOR FASCICULAR BLOCK POSSIBLE ANTERIOR MYOCARD IAL INFARCTION ABNORMAL ECG PREVIOUS TRACING : 09/21/2018 08.38 Since the previous tracing, no significant change noted DOCTOR: Amina Gibbs Interpretating Date/Time 10/13/2018 20:03:13
--- NOTE | 2018-10-13 20:12 | ECG ---
Date Performed: 10/12/2018 Time Performed: 21:18:50 PTAGE: 53 years EKG: Sinus rhythm WITH OCCASIONAL SUPRAVENTRICULAR PREMATURE COMPLEXES PATTERN CONSISTENT WITH PULMONARY DISEASE LEFT ANTERIOR FASCICULAR BLOCK ABNORMAL QRS-T ANGLE ABNORMAL ECG PREVIOUS TRACING : 10/12/2018 15.31 Since the previous tracing, no significant change noted DOCTOR: Amina Gibbs Interpretating Date/Time 10/13/2018 20:03:22
[2018-10-13] MEDS: Insulin Detemir Inj 1,000 UNIT/10 ML Vial SQ SCH (20:24)
[2018-10-14] MEDS: Morphine Inj 4 MG/ML Vial IV.PUSH PRN ×3 (00:27→08:50)
[2018-10-14] MEDS: Insulin NovoLOG Aspart Correctional Sugar Inj SQ SCH ×2 (03:13→08:50)
[2018-10-14] MEDS: Torsemide 20 MG Tablet PO SCH (08:52)
[2018-10-14 09:02] VITALS: BP 126/81; PULSE 72; RESP 20; TEMP 97.2; O2SAT 100
--- NOTE | 2018-10-14 13:39 | P.DS ---
Date of admission: 10/12/18 16:55 Primary care physician: UNKNOWN Attending physician on discharge: Hanane Back Anticipated date of discharge: 10/14/18 Brief History from admission: This patient is a 53-year-old male with a diagnosis of hypertension, systolic CHF ejection fraction 15% status post AICD and pacemaker, uncontrolled diabetes. The patient presents with 3-day history of worsening shortness of breath as well as lower extremity swelling. The patient says that his symptoms have progressively getting worse over the past week and is now unable to lie flat. He also had some chest discomfort earlier today and came into our emergency department for evaluation and care. He has had similar symptoms in the past and has been admitted for CHF exacerbations. The patient denies any fevers or chills, no diarrhea, no abdominal pain. Past medical history hypertension, systolic CHF ejection fraction 50% status post AICD placement and pacemaker placement, insulin-dependent diabetes Surgical history the patient has amputations of all of his toes due to comp occasions of diabetes. Family history significant for coronary artery disease, diabetes Social history the patient has an extensive history of tobacco smoking, he drinks alcohol socially, he denies any history of drug use. The patient admits to smoking marijuana. Patient update on day of discharge: Patient is doing well. Denies any chest pain, shortness of breath, fever or chills. He is ambulating well. Tolerating diet well. DS: Medications - Discharge Medications Prescriptions: docusate sodium [Colace] 100 mg PO BID PRN #30 cap PRN Reason: Constipation insulin aspart U-100 [Novolog U-100 Insulin aspart] 0 unit SUBCUT ACHS 30 Days ml insulin detemir U-100 [Levemir U-100 Insulin] 8 unit SUBCUT HS 30 Days ml losartan [Cozaar] 25 mg PO DAILY #30 tab potassium chloride [K-Tab] 10 meq PO DAILY 30 Days #30 tab spironolactone [Aldactone] 25 mg PO DAILY #30 tab torsemide 20 mg PO BID@0900,1800 #60 tab DS: Summary Hospital Course: This patient is a 53-year-old male with a diagnosis of hypertension, systolic CHF ejection fraction 15% status post AICD and pacemaker, uncontrolled diabetes. The patient presents with 3-day history of worsening shortness of breath as well as lower extremity swelling. The patient says that his symptoms have progressively getting worse over the past week and is now unable to lie flat. He also had some chest discomfort earlier today and came into our emergency department for evaluation and care. He has had similar symptoms in the past and has been admitted for CHF exacerbations. Acute exacerbation of congestive heart failure systolic Chronic congestive heart failure, systolic Severe cardiomyopathy with ejection fraction 15% -Patient's NYHA classification is likely II. 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 -Continue Aspirin 81mg Qday. Diabetes mellitus -Continue Levemir and sliding scale insulin. Full code. Ambulation. - Time Spent with Patient Total time spent providing and/or coordinating discharge services: Greater than 30 minutes - Quality: VTE Deep Vein Thrombosis/Pulmonary Embolism Present on Admission: No Exam Vital signs: Vital Signs 10/13/18 16:00 10/13/18 20:00 10/13/18 23:45 Temperature 97.8 F 97.7 F 97.4 F L Pulse Rate 77 81 86 Respiratory Rate 18 17 19 Blood Pressure 128/81 140/90 136/84 Pulse Oximetry 100 94 L 96 10/14/18 00:42 10/14/18 04:00 10/14/18 08:00 Temperature 98.1 F 97.2 F L Pulse Rate 74 79 72 Respiratory Rate 16 20 Blood Pressure 130/84 126/81 Pulse Oximetry 96 100 Intake & Output 10/13/18 10/14/18 10/14/18 18:59 06:59 18:59 Intake Total 480 / 480 240 / 240 Balance 480 / 480 240 / 240 Weight 84.1 kg Intake: Oral 480 / 480 240 / 240 Other: # Voids 4 3 Narrative: GENERAL: Alert, oriented x3, NAD. On room air. SKIN: Warm and dry. HEAD: Normocephalic. EYES: No scleral icterus. No injection or drainage. NECK: Supple, trachea midline. No JVD or lymphadenopathy. CARDIOVASCULAR: Regular rate and rhythm without murmurs, gallops, or rubs. RESPIRATORY: Breath sounds equal bilaterally. No accessory muscle use. GASTROINTESTINAL: Abdomen soft, non-tender, nondistended. MUSCULOSKELETAL: No cyanosis. Lower extremity trace edema BACK: Nontender without obvious deformity. No CVA tenderness. Results Procedures completed during hospitalization: None Labs on day of discharge: Labs from last 24 hours 10/14/18 10/14/18 10/13/18 08:50 03:10 19:26 POC Glucose 79 132 H 104 10/13/18 17:42 POC Glucose 131 H - Impressions ITS Impressions Chest X-Ray 10/12/18 15:11 CONCLUSION: 1. Mild patchiness within the right lung base consistent with possible residual infiltrate. 2. Cardiomegaly. Discharge Plan - Discharge Disposition Patient Disposition: Discharge Home - Discharge Condition Condition: Good - Discharge Order Discharge Orders: Discharge Order (Routine); Ordered 10/14/18 Ordered By: Hanane Back - Discharge Details Anticipated Discharge Date: 10/14/18 Discharge Comment: Please follow up with cardiology and Primary care provider within 1-2 weeks. - Physicians Team Primary Care Provider: UNKNOWN, Attending Provider: Hanane Back
[2018-10-14] MEDS ORDERED: Spironolactone 25 MG Tablet PO SCH (15:57)
== END 2018-10-14 10:45 | disposition home or self-care (01) ==
LOC: NEPC 14:43 → NEDA 16:55 → N04 18:20
PROVIDERS: ADMIT Hospitalist; ATTEND Hospitalist